=== PATIENT | female | born 1945 ===

== ENCOUNTER 2021-03-31 03:42 | Emergency (ER) | payer MEDICARE, MEDICAID, SELFPAY ==
[2021-03-31 03:51] VITALS: BP 176/96; PULSE 82
[2021-03-31 03:56] VITALS: BP 197/91; PULSE 66; RESP 16; TEMP 36.1; O2SAT 100; BMI 32.9
[2021-03-31 04:00] VITALS: BP 185/64; PULSE 68; RESP 16; TEMP 36.1; O2SAT 100
[2021-03-31 06:15] VITALS: BP 205/76; PULSE 72; TEMP 36.6; O2SAT 98
--- NOTE | 2021-03-31 06:55 | PC.NURSE ---
Patient is resting quietly in bed with eyes closed in no distress
--- NOTE | 2021-03-31 07:57 | PC.NURSE ---
Patient is ambulatory to the bathroom using her cane. No distress noted
--- NOTE | 2021-03-31 08:15 | PC.NURSE ---
Patient sitting up in bed eating breakfast
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
--- NOTE | 2021-03-31 09:10 | PC.NURSE ---
Dipper Machine Operator at bedside with doctor talking with patient. Pt expresses that she is afraid of being at home at night. The noises in her home scare here. 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 Pt was recently started on zoloft per daughter Maggie who called earlier.
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
--- NOTE | 2021-03-31 09:45 | PC.NURSE ---
Doctor is at bedside talking with daughter. Pt remains alert and oriented. NO distress
--- NOTE | 2021-03-31 10:01 | PC.NURSE ---
Discharge instructions given to daughter who verbalized understanding and denies any questions. Pt assisted into wheelchair and out to family vehicle
== END 2021-03-31 10:02 | disposition home or self-care (01) ==
PROVIDERS: Emergency Provider Emergency Medicine Emergency Medical Services; PCP Internal Medicine
DX: F41.9 Anxiety disorder, unspecified (principal); F22 Delusional disorders; E11.9 Type 2 diabetes mellitus without complications
CPT/HCPCS: 99282; 99284

== ENCOUNTER → 2021-09-17 10:46 | Outpatient (BNVA) | payer MEDICARE, MEDICAID, SELFPAY | PROVIDERS: PCP Internal Medicine; Visit Provider Internal Medicine | DX: J44.9 Chronic obstructive pulmonary disease, unspecified (principal); G47.33 Obstructive sleep apnea (adult) (pediatric); Z99.89 Dependence on other enabling machines and devices | CPT/HCPCS: 99212 ==

== ENCOUNTER 2021-11-26 01:58 | Inpatient (IN) | payer MEDICARE, MEDICAID, SELFPAY ==
[2021-11-26] VITALS (12 sets, daily range): BP systolic 115–154; BP diastolic 55–90; PULSE 80–138; RESP 14–25; TEMP 36.5–37.2; O2SAT 95–100; BMI 32.8
--- NOTE | ~2021-11-26 | XR_ITS ---
EXAMINATION: XR chest 1V CLINICAL INFORMATION: Reason for Exam fever COMPARISON: Chest radiograph 11/26/2021 TECHNIQUE: One view of the chest XR/XR chest 1V FINDINGS/IMPRESSION: Similar indistinctness of the central pulmonary vasculature with increased interstitial opacities which can be seen in the setting of pulmonary edema. No pneumothorax. No pleural effusion. Cardiac silhouette is mildly enlarged. Surgical clips in the right breast. Surgical anchors in the right humeral head.
--- NOTE | ~2021-11-26 | XR_ITS ---
EXAMINATION: XR CHEST CLINICAL INFORMATION: Dyspnea COMPARISON: 12/29/2017 TECHNIQUE: Frontal view of the chest was obtained. FINDINGS: Lung volumes are symmetric. There is prominence of the central vasculature and surrounding interstitium suggesting congestion. No evidence of pneumothorax or significant pleural effusion. Cardiac silhouette remains enlarged. Calcification is present at the aortic arch. Right humeral head surgical anchors again noted. Degenerative changes are noted in the spine. XR/XR chest 1V IMPRESSION: Prominent central vasculature suggesting congestion. Cardiac silhouette remains enlarged.
--- NOTE | ~2021-11-26 | CT_ITS ---
EXAMINATION: CT head/brain wo con CLINICAL INFORMATION: Reason for Exam acute encephalopathy vs delirium COMPARISON: None. TECHNIQUE: Contiguous axial imaging was performed from the skull base to vertex without intravenous contrast. Sagittal and coronal reformatted images were obtained. This CT examination was performed using dose optimization techniques as appropriate, variously including the following: * Automated exposure control * Adjustment of mA and/or kV according to patient size (this includes techniques or standardized protocols for targeted exams where dose is matched to indication/reason for exam; i.e. extremities or head) Use of iterative reconstruction technique DLP: 646 mGy-cm FINDINGS: No acute osseous or soft tissue abnormality. The mastoid air cells and visualized portions of the paranasal sinuses are well aerated. There is no evidence of acute intracranial hemorrhage or territorial infarction. No abnormal mass effect or midline shift is seen. [place] to white matter differentiation is well preserved. No extra-axial fluid collections are identified. No hydrocephalus. Patchy periventricular and deep white matter hypoattenuation most commonly reflective of mild small vessel ischemic changes. CT/CT head/brain wo con IMPRESSION: 1. No acute intracranial abnormality. 2. Patchy periventricular and deep white matter hypoattenuation most commonly reflective of mild small vessel ischemic changes.
--- NOTE | 2021-11-26 02:15 | ECG_ITS ---
Test Reason : SHORTNESS OF BREATH Blood Pressure : / mmHG Vent. Rate : 117 BPM Atrial Rate : 000 BPM P-R Int : 000 ms QRS Dur : 092 ms QT Int : 350 ms P-R-T Axes : 000 -04 053 degrees QTc Int : 488 ms Atrial fibrillation with rapid ventricular response Moderate voltage criteria for LVH, may be normal variant ( R in aVL , Tommy product ) Nonspecific ST and T wave abnormality Abnormal ECG When compared to the previous EKG of Atrial fibrillation with rapid ventricular response has replaced Normal sinus rhythm Referred By: Francie Moy Electronically Signed By:INOCENCIA SHULTZ MD
--- NOTE | 2021-11-26 02:20 | ED_ITS ---
HPI - SOB/Dyspnea General Chief Complaint: Dyspnea Stated Complaint: SOB Time Seen by Provider: 11/26/21 02:02 Source: patient and old records reviewed Mode of arrival: EMS Limitations: other (poor historian) History of Present Illness MD elicited complaint: shortness of breath and anxiety Pertinent past history: congestive heart failure and other (afib) Onset (ago): hour(s) (11pm ) Context: other (taken off sotalol recently?) Timing: constant Severity: moderate Exacerbating factors: exertion and movement Relieving factors: oxygen and rest Known history of: congestive heart failure Associated symptoms: palpitations and other (LE edema) Treatment prior to arrival: none Related Data Home Medications Medication Instructions Recorded Confirmed acetaminophen 325 mg tablet 650 mg PO Q6H PRN 09/17/21 betamethasone, augmented 0.05 % appl TOPICAL DAILY 09/17/21 topical cream docusate sodium 100 mg capsule 100 mg PO BID 09/17/21 fluticasone propionate 50 spray INTRANASAL 09/17/21 mcg/actuation nasal spray,suspension gabapentin 100 mg capsule 100 mg PO BEDTIME 09/17/21 ipratropium 20 mcg-albuterol 100 1 puff INHALATION QID PRN 09/17/21 mcg/actuation mist for inhalation (Combivent Respimat) latanoprost 0.005 % eye drops 1 drp OPHTHALMIC (EYE) BEDTIME 09/17/21 letrozole 2.5 mg tablet 2.5 mg PO DAILY 09/17/21 lisinopril 5 mg tablet 5 mg PO DAILY 09/17/21 rosuvastatin 40 mg tablet 40 mg PO DAILY 09/17/21 sertraline 25 mg tablet 25 mg PO DAILY 09/17/21 sotalol 80 mg tablet (Sotalol AF) 80 mg PO BID 09/17/21 warfarin 5 mg tablet (Jantoven) mg PO 09/17/21 Allergies Allergy/AdvReac Type Severity Reaction Status Date / Time No Known Allergies Allergy Mild N/A Unverified 09/17/21 11:16 Review of Systems Review of Systems: Constitutional : No Fever, No Chills ENT/Mouth : No sore throat, No Rhinorrhea, No Swallowing Difficulty Eyes: No Eye Pain, No Swelling, No Redness Cardiovascular : No Chest Pain, positive SOB, No Orthopnea, positive Edema Respiratory : No Cough, No Sputum, No Wheezing, positive dyspnea Gastrointestinal : No Nausea, No Vomiting, No Diarrhea, No abdominal Pain, No Hematochezia, No Melena Genitourinary : No Dysuria, No Urinary Frequency, No Hematuria Musculoskeletal : No joint pain, No Myalgias Skin : No Skin Lesions, No rash Neuro : No Weakness, No Numbness, No Dizziness, No Headache Psych : pos Anxiety/Panic, No Depression Heme/Lymph: No Bruising, No Lymphadenopathy Endocrine : No Polyuria, No Polydipsia All other systems reviewed and are negative [facility] Past Medical History Attestation statement: The following information was validated with the patient. Medical History Anxiety Atrial fibrillation COPD (chronic obstructive pulmonary disease) Depression LEYDA on CPAP Social History Social History Alcohol intake: never Patient Tobacco Use Status: Never used Tobacco Use of substances other than those prescribed or required for medical reasons: No Advance Directives: No Advance Directives Information Provided: No Physical Exam Vital Signs: Vital Signs: Last Vital Signs Temp 98.8 F 11/26/21 02:22 Pulse 100 11/26/21 04:04 Resp 18 11/26/21 04:04 BP 143/55 H 11/26/21 04:04 Pulse Ox 96 11/26/21 04:04 BMI result Body Mass Index 32.8 Appearance: Alert. Oriented X3. Mild acute distress. Anxious Eyes: Pupils equal, round and reactive to light. ENT: Pharynx normal. Neck: Normal inspection. Neck supple. CVS: irregular tachycardic heart rate and rhythm. Pulses decreased in bilateral LE Respiratory: No respiratory distress. Breath sounds decreased at bases - rales noted bilaterally Abdomen: Soft and nontender. Skin: Skin warm and dry. Normal skin color. Normal skin turgor. Extremities: 1 to 2+ pitting LE edema Neuro: Oriented X 3. No motor deficit. No sensory deficit. Course Course Course Narrative: HR down to 87 after IV dilt edema seen on CXR, BNP > 400 IV lasix ordered will start dilt gtt HR up and down to 130s, BP stable likely uncontrolled afib set off CHF - plan to admit after repeat trop repeat trop is flat MDM - SOB/Dyspnea MDM Narrative Medical decision making narrative: 76 yo female with hx of afib only on coumadin ( off of sotalol unsure why) COPD, HPL, HTN here with c/o feeling dyspneic while at rest since 11pm. She is in rapid afib. Daughter is here and confirms she is not on sotalol has not filled it since Jul and the patient is also here with her bag of meds which does not include sotalol. At this time likely rapid afib and component of anxiety causing her symptoms - will obtain labs, given IV dilt, CXR, PO xanax. Dispo per results and improvement. Lab Data Result diagrams: 11/26/21 03:07 11/26/21 03:07 Labs: Lab Results 11/26/21 11/26/21 11/26/21 Range/Units 03:07 03:07 03:07 WBC 5.8 (4.8-10.8) X10*3/uL RBC 4.48 (4.20-5.50) X10*6/uL Hgb 13.2 (12.0-16.0) g/dl Hct 44.0 (37.0-47.0) % MCV 98.2 H (80.0-98.0) fL MCH 29.5 (27.0-33.0) pg MCHC 30.0 L (31.0-35.0) g/dl RDW 13.9 (11.0-16.0) % Plt Count TNP MPV 11.4 (9.4-12.3) fL Immature Gran % (Auto) 0.2 (0.0-0.4) % Neut % (Auto) 53.4 (45-73) % Lymph % (Auto) 33.4 (20-40) % Villalba % (Auto) 9.2 (2-11) % Eos % (Auto) 3.3 (0-4) % Baso % (Auto) 0.5 (0-2) % Lymph # (Auto) 1.9 (1.2-4.9) X10*3/uL Villalba # (Auto) 0.5 (0.1-1.2) X10*3/uL Eos # (Auto) 0.2 (0.0-0.4) X10*3/uL Baso # (Auto) 0.0 (0.0-0.2) X10*3/uL Abs Immat Gran (auto) 0.01 (0.00-0.03) X10*3/uL Absolute Neuts (auto) 3.1 (2.0-8.3) x10*3/uL Absolute Nucleated RBC 0.000 (0.0-0.012) X10*3/uL Nucleated RBC % (auto) 0.0 (0.0-0.2) /100WBC PT (9.9-13.0) SEC INR (0.9-1.1) VBG pH (7.32-7.43) VBG pCO2 mmHg VBG pO2 mmHg VBG HCO3 (22-26) mmol/L VBG O2 Saturation % VBG Base Excess mmol/L Sodium 140 (135-145) mmol/L Potassium 3.8 (3.3-5.1) mmol/L Chloride 104 (96-108) mmol/L Carbon Dioxide 25 (22-29) mmol/L Anion Gap 15 (12-20) BUN 18 H (9-16) mg/dL Creatinine 0.76 (0.5-1.4) mg/dL Estim Creat Clear Calc 61.2 Estimated GFR > 60 Random Glucose 127 H (60-115) mg/dL Calcium 10.0 (8.4-10.2) mg/dL Magnesium 2.2 (1.6-2.6) mg/dL Total Bilirubin 0.6 (0.0-1.0) mg/dL Direct Bilirubin 0.3 (0.0-0.5) mg/dL AST 18 (5-31) U/L ALT 9 (0-31) U/L Alkaline Phosphatase 92 (39-117) U/L Troponin I High Sens (<3.5-17.0) ng/L B-Natriuretic Peptide 413 H (<100) pg/mL Total Protein 8.1 H (6.5-8.0) g/dL Albumin 4.1 (3.5-5.0) g/dL COVID-19 ([facility]) (Negative) COVID-19 Clin Com 11/26/21 11/26/21 11/26/21 Range/Units 03:07 03:07 03:07 WBC (4.8-10.8) X10*3/uL RBC (4.20-5.50) X10*6/uL Hgb (12.0-16.0) g/dl Hct (37.0-47.0) % MCV (80.0-98.0) fL MCH (27.0-33.0) pg MCHC (31.0-35.0) g/dl RDW (11.0-16.0) % Plt Count MPV (9.4-12.3) fL Immature Gran % (Auto) (0.0-0.4) % Neut % (Auto) (45-73) % Lymph % (Auto) (20-40) % Villalba % (Auto) (2-11) % Eos % (Auto) (0-4) % Baso % (Auto) (0-2) % Lymph # (Auto) (1.2-4.9) X10*3/uL Villalba # (Auto) (0.1-1.2) X10*3/uL Eos # (Auto) (0.0-0.4) X10*3/uL Baso # (Auto) (0.0-0.2) X10*3/uL Abs Immat Gran (auto) (0.00-0.03) X10*3/uL Absolute Neuts (auto) (2.0-8.3) x10*3/uL Absolute Nucleated RBC (0.0-0.012) X10*3/uL Nucleated RBC % (auto) (0.0-0.2) /100WBC PT 26.1 H (9.9-13.0) SEC INR 2.3 H (0.9-1.1) VBG pH (7.32-7.43) VBG pCO2 mmHg VBG pO2 mmHg VBG HCO3 (22-26) mmol/L VBG O2 Saturation % VBG Base Excess mmol/L Sodium (135-145) mmol/L Potassium (3.3-5.1) mmol/L Chloride (96-108) mmol/L Carbon Dioxide (22-29) mmol/L Anion Gap (12-20) BUN (9-16) mg/dL Creatinine (0.5-1.4) mg/dL Estim Creat Clear Calc Estimated GFR Random Glucose (60-115) mg/dL Calcium (8.4-10.2) mg/dL Magnesium (1.6-2.6) mg/dL Total Bilirubin (0.0-1.0) mg/dL Direct Bilirubin (0.0-0.5) mg/dL AST (5-31) U/L ALT (0-31) U/L Alkaline Phosphatase (39-117) U/L Troponin I High Sens 31.0 H (<3.5-17.0) ng/L B-Natriuretic Peptide (<100) pg/mL Total Protein (6.5-8.0) g/dL Albumin (3.5-5.0) g/dL COVID-19 ([facility]) Negative (Negative) COVID-19 Clin Com See Note 11/26/21 11/26/21 Range/Units 03:14 05:17 WBC (4.8-10.8) X10*3/uL RBC (4.20-5.50) X10*6/uL Hgb (12.0-16.0) g/dl Hct (37.0-47.0) % MCV (80.0-98.0) fL MCH (27.0-33.0) pg MCHC (31.0-35.0) g/dl RDW (11.0-16.0) % Plt Count MPV (9.4-12.3) fL Immature Gran % (Auto) (0.0-0.4) % Neut % (Auto) (45-73) % Lymph % (Auto) (20-40) % Villalba % (Auto) (2-11) % Eos % (Auto) (0-4) % Baso % (Auto) (0-2) % Lymph # (Auto) (1.2-4.9) X10*3/uL Villalba # (Auto) (0.1-1.2) X10*3/uL Eos # (Auto) (0.0-0.4) X10*3/uL Baso # (Auto) (0.0-0.2) X10*3/uL Abs Immat Gran (auto) (0.00-0.03) X10*3/uL Absolute Neuts (auto) (2.0-8.3) x10*3/uL Absolute Nucleated RBC (0.0-0.012) X10*3/uL Nucleated RBC % (auto) (0.0-0.2) /100WBC PT (9.9-13.0) SEC INR (0.9-1.1) VBG pH 7.36 (7.32-7.43) VBG pCO2 48 mmHg VBG pO2 56 mmHg VBG HCO3 27 H (22-26) mmol/L VBG O2 Saturation 83.0 % VBG Base Excess 1.5 mmol/L Sodium (135-145) mmol/L Potassium (3.3-5.1) mmol/L Chloride (96-108) mmol/L Carbon Dioxide (22-29) mmol/L Anion Gap (12-20) BUN (9-16) mg/dL Creatinine (0.5-1.4) mg/dL Estim Creat Clear Calc Estimated GFR Random Glucose (60-115) mg/dL Calcium (8.4-10.2) mg/dL Magnesium (1.6-2.6) mg/dL Total Bilirubin (0.0-1.0) mg/dL Direct Bilirubin (0.0-0.5) mg/dL AST (5-31) U/L ALT (0-31) U/L Alkaline Phosphatase (39-117) U/L Troponin I High Sens 32.4 H (<3.5-17.0) ng/L B-Natriuretic Peptide (<100) pg/mL Total Protein (6.5-8.0) g/dL Albumin (3.5-5.0) g/dL COVID-19 ([facility]) (Negative) COVID-19 Clin Com Critical Care Time Critical Care Time Critical Care Time: Yes Total Critical Care Time: 35 Attestation: IV dilt, IV dilt gtt, review of records I attest to this time spent taking care of the patient Discharge Plan Discharge Clinical Impression: Atrial fibrillation with rapid ventricular response, Acute dyspnea Congestive heart failure Qualifiers: Heart failure type: unspecified Heart failure chronicity: acute on chronic Qualified Code(s): I50.9 - Heart failure, unspecified Patient Disposition: Admitted As Inpatient
[2021-11-26] MEDS: dilTIAZem HCL 50 MG/10 ML VIAL 10 MG IVPUSH (03:16)
[2021-11-26] MEDS: ALPRAZolam 0.5 MG TABLET PO (03:17)
[2021-11-26 03:18] LABS: PLT CLUMP 1; Red Blood Count 4.48 X10*6/uL (4.20-5.50); Red Cell Distribution Width 13.9 % (11.0-16.0); SCAN SMEAR FLAG 1
[2021-11-26 03:20] LABS: Basophils Percent Auto 0.5 % (0-2); Eosinophils Absolute Auto 0.2 X10*3/uL (0.0-0.4); Eosinophils Percent Auto 3.3 % (0-4); Hemoglobin 13.2 g/dl (12.0-16.0); Imm Gran Abs Auto 0.01 X10*3/uL (0.00-0.03); Imm Gran Pct Auto 0.2 % (0.0-0.4); Lymphocytes Absolute Auto 1.9 X10*3/uL (1.2-4.9); Lymphocytes Percent Auto 33.4 % (20-40); Mean Corpuscular Hemoglobin 29.5 pg (27.0-33.0); Mean Corpuscular Volume 98.2 fL (80.0-98.0); Mean Platelet Volume 11.4 fL (9.4-12.3); Monocytes Absolute Auto 0.5 X10*3/uL (0.1-1.2); Monocytes Percent Auto 9.2 % (2-11); Neutrophils Absolute Auto 3.1 x10*3/uL (2.0-8.3); Neutrophils Percent Auto 53.4 % (45-73); White Blood Count 5.8 X10*3/uL (4.8-10.8)
[2021-11-26 03:21] LABS: MANUAL DIFF FLAG NO
[2021-11-26 03:24] LABS: INTERNATIONAL NORM RATIO 2.3 (0.9-1.1); Prothrombin Time 26.1 SEC (9.9-13.0)
[2021-11-26 03:24] LABS: Venous Blood Gas Refer to POC result
[2021-11-26 03:24] LABS: VBG Base Excess 1.5 mmol/L; VBG HCO3 27 mmol/L (22-26); VBG pCO2 48 mmHg; VBG pH 7.36 (7.32-7.43); VBG pO2 56 mmHg
[2021-11-26 03:34] LABS: Alanine Aminotransferase 9 U/L (0-31); Albumin Level 4.1 g/dL (3.5-5.0); Alkaline Phosphatase 92 U/L (39-117); Anion Gap 15 (12-20); Aspartate Amino Transferase 18 U/L (5-31); Bilirubin Direct 0.3 mg/dL (0.0-0.5); Bilirubin Total 0.6 mg/dL (0.0-1.0); Blood Urea Nitrogen 18 mg/dL (9-16); Carbon Dioxide 25 mmol/L (22-29); Chloride 104 mmol/L (96-108); Creatinine Clr Calc Pharmacy 61.2; Estimated Glomerular Filt Rate > 60; Glucose Random 127 mg/dL (60-115); Magnesium 2.2 mg/dL (1.6-2.6); Potassium 3.8 mmol/L (3.3-5.1); Sodium 140 mmol/L (135-145); Total Protein 8.1 g/dL (6.5-8.0)
[2021-11-26 03:39] LABS: B Type Natriuretic Peptide 413 pg/mL (<100)
[2021-11-26 03:47] LABS: COVID-19 Test Negative (Negative); IDNOW Serial# 55D5AD1C
[2021-11-26] MEDS: Furosemide 20 MG/2 ML VIAL IVPUSH ×2 (03:53→21:20)
[2021-11-26] MEDS: dilTIAZem HCL 125 MG in 0.9 % Sodium Chloride 100 ML 10 MG IVCONT (04:46)
--- NOTE | 2021-11-26 04:58 | PC.NURSE ---
Patient's heart rate increased into the 120's to 130's and MD aware. Patient was started on diltiazem drip initially at 10mg/hr per protocol but was decreased to 5 mg/hour because heart rate dropped to 100 within 11 minutes.
[2021-11-26 05:42] LABS: Troponin-I High Sensitivity 32.4 ng/L (<3.5-17.0)
--- NOTE | 2021-11-26 11:31 | PHA.MEDREC ---
Pharmacy Consult ? Medication Reconciliation Pharmacy has completed the medication reconciliation. Unable to reach patient's daughter to confirm medications and unable to wake pt, so contacted pt's primary care and they sent a list of medications that should be active. List did contain sotalol 80mg BID. Ruthie Cardoza, LuisD
--- NOTE | 2021-11-26 17:06 | PM.IMHP ---
History of Present Illness Date of Service: 11/26/21 Attending physician on admission: Mason Macario Chief Complaint: chf , afib with rvr called for admission this afternoon. 76 y/o F history of AFib , CHF ef is 20-30% ( echo in 2010), sleep apnea on CPAP, hypertension, asthma/COPD, venoustasis/pvd ?, hx of recent breast cancer right side-came to the hospital because of having progressive shortness of breath and palpitation also having anxiety symptoms living alone, she thought that somebody is in her apartment, according to patient and her son-patient has shortness of breath from couple of years and gets progressively worse from last few months as well as having palpitation unclear if anxiety is contributing because when she lives in her apartment alone she feel somebody in the in the apartment and feels generalized anxiety during that time, Her son kept her with him for 1 month and her symptoms were getting better but then she was moved moved back to live alone-started having palpitation, shortness of breath, also anxiety symptoms and was sent to the hospital further management. Patient complained of waking up with shortness of breath to 3 time in a month. Patient has sleep apnea noncompliant to CPAP. Seen by ED physician patient-admission is for CHF/AFib with RVR. As per the ED note patient was not taking sotalol son clear why. As per the daughter patient was taking sotalol? Patient was currently started on Cardizem drip as per ED physician. As per the daughter also she had recent breast cancer removal as per daughter it was stage I and she was placed on medication after that she does not know the name. Currently patient says her shortness of breath seems improving also feels less palpitations, heart rate is running in 120 range on the tele. Patient denies any nausea vomiting abdominal pain or fever chills or any urinary complaints or weakness or numbness or any chest pain Past surgical history as above. Social history: Lives alone, no smoking no EtOH or recreational drugs. Review of Systems Review of Systems: As above. [facility] Medical History Anxiety Atrial fibrillation COPD (chronic obstructive pulmonary disease) Depression LEYDA on CPAP Pertinent family history: Hypertension runs in the family. Social History Alcohol intake: never Patient Tobacco Use Status: Never used Tobacco Use of substances other than those prescribed or required for medical reasons: No Advance Directives: No Advance Directives Information Provided: No Meds Allergies Allergy/AdvReac Type Severity Reaction Status Date / Time No Known Allergies Allergy Mild N/A Unverified 09/17/21 11:16 Active Medications: Current Medications Aspirin (Aspirin Enteric Coated 81 Mg Tablet.Dr) 81 mg PO DAILY [facility] Betamethasone Dipropion Augmented (Betamethasone Dip Aug 0.05% Cr 15 Gm Tube) 1 appl TOPICAL DAILY [facility]; Protocol Fluticasone Propionate (Fluticasone Propionate Nasal 16 Gm [place]) 2 spray NOSTRIL-B DAILY [facility] Furosemide (Furosemide 20 Mg/2 Ml Vial) 20 mg IVPUSH BID [facility]; Protocol Gabapentin (Gabapentin 100 Mg Capsule) 100 mg PO BEDTIME [facility] Diltiazem HCl 125 mg/ Sodium (Chloride) 125 mls @ 0 mls/hr IVCONT .Q0M [facility]; Protocol Last Titration: 11/26/21 04:57 Dose: 5 mg/hr, 5 mls/hr Documented by: Lisinopril (Lisinopril 5 Mg Tablet) 5 mg PO BID [facility]; Protocol Non-Formulary Medication (Ipratropium-Albuterol [Combivent Respimat]) 1 puff INHALE QID PRN PRN Reason: Shortness Of Breath Non-Formulary Medication (Rosuvastatin) 40 mg PO DAILY [facility] Pharmacy Consult (Consult Rx Perform Med Rec) 1 each MISCELLANE ONCE PRN PRN Reason: Consult order Sertraline HCl (Sertraline Hcl 25 Mg Tablet) 25 mg PO DAILY [facility] Sodium Chloride (0.9 % Sodium Chloride Flush 3 Ml Syringe) 3 ml IVFLUSH QSHIFT [facility] Warfarin Sodium (Warfarin Sodium 5 Mg Tablet) 5 mg PO ONCE@1800 ONE Stop: 11/26/21 18:01 Home Medications Medication Instructions Recorded Confirmed Last Taken Type acetaminophen 325 mg tablet 650 mg PO Q6H PRN 09/17/21 11/26/21 Unknown History betamethasone, augmented 0.05 % 1 appl TOPICAL DAILY 09/17/21 11/26/21 Unknown History topical cream fluticasone propionate 50 2 spray INTRANASAL DAILY 09/17/21 11/26/21 Unknown History mcg/actuation nasal spray,suspension gabapentin 100 mg capsule 100 mg PO BEDTIME 09/17/21 11/26/21 Unknown History ipratropium 20 mcg-albuterol 100 1 puff INHALATION QID PRN 09/17/21 11/26/21 Unknown History mcg/actuation mist for inhalation (Combivent Respimat) lisinopril 5 mg tablet 5 mg PO BID 09/17/21 11/26/21 Unknown History rosuvastatin 40 mg tablet 40 mg PO DAILY 09/17/21 11/26/21 Unknown History sertraline 25 mg tablet 25 mg PO DAILY 09/17/21 11/26/21 Unknown History sotalol 80 mg tablet (Sotalol AF) 80 mg PO BID 09/17/21 11/26/21 Unknown History warfarin 5 mg tablet (Jantoven) 5 - 10 mg PO DAILY 09/17/21 11/26/21 Unknown History aspirin 81 mg tablet,delayed 81 mg PO DAILY 11/26/21 11/26/21 Unknown History release tramadol 50 mg tablet 1 tab PO Q12H PRN 11/26/21 11/26/21 Unknown History Physical Exam Vital Signs and Narrative: Vital Signs: Last Vital Signs Temp 97.7 F 11/26/21 15:03 Pulse 110 H 11/26/21 15:03 Resp 17 11/26/21 15:03 BP 144/56 H 11/26/21 15:03 Pulse Ox 99 11/26/21 15:03 BMI result Body Mass Index 32.8 physical exam: Appearance: Alert.? Oriented X3.? not in distress.? Eyes: Pupils equal, round and reactive to light.? Sclera nonicteric.? ENT: Pharynx normal.? Moist mucous membranes. cvs: rrr, [id number]. res: clear to auscultation ,no rhonchii or wheezing abd: no rebound or guarding ,nt, bs present. ext pulses present , no cyanosis,left leg wrapped with compression stocking , has ulcer as per patient and family. neuro: axo3 , nonfocal. Results Labs CBC and Chem 7: 11/26/21 03:07 11/26/21 03:07 Labs: Laboratory Results - last 24 hr 11/26/21 11/26/21 11/26/21 03:07 03:07 03:07 MCV 98.2 H MCH 29.5 MCHC 30.0 L RDW 13.9 Plt Count TNP MPV 11.4 Immature Gran % (Auto) 0.2 Neut % (Auto) 53.4 Lymph % (Auto) 33.4 [place] % (Auto) 9.2 Eos % (Auto) 3.3 Baso % (Auto) 0.5 Lymph # (Auto) 1.9 [place] # (Auto) 0.5 Eos # (Auto) 0.2 Baso # (Auto) 0.0 Abs Immat Gran (auto) 0.01 Absolute Neuts (auto) 3.1 Absolute Nucleated RBC 0.000 Nucleated RBC % (auto) 0.0 PT INR VBG pH VBG pCO2 VBG pO2 VBG HCO3 VBG O2 Saturation VBG Base Excess Anion Gap 15 Estim Creat Clear Calc 61.2 Estimated GFR > 60 Random Glucose 127 H Calcium 10.0 Magnesium 2.2 Total Bilirubin 0.6 Direct Bilirubin 0.3 AST 18 ALT 9 Alkaline Phosphatase 92 Troponin I High Sens B-Natriuretic Peptide 413 H Total Protein 8.1 H Albumin 4.1 COVID-19 (KATHY) COVID-ForeSee Com 11/26/21 11/26/21 11/26/21 03:07 03:07 03:07 MCV MCH MCHC RDW Plt Count MPV Immature Gran % (Auto) Neut % (Auto) Lymph % (Auto) [place] % (Auto) Eos % (Auto) Baso % (Auto) Lymph # (Auto) [place] # (Auto) Eos # (Auto) Baso # (Auto) Abs Immat Gran (auto) Absolute Neuts (auto) Absolute Nucleated RBC Nucleated RBC % (auto) PT 26.1 H INR 2.3 H VBG pH VBG pCO2 VBG pO2 VBG HCO3 VBG O2 Saturation VBG Base Excess Anion Gap Estim Creat Clear Calc Estimated GFR Random Glucose Calcium Magnesium Total Bilirubin Direct Bilirubin AST ALT Alkaline Phosphatase Troponin I High Sens 31.0 H B-Natriuretic Peptide Total Protein Albumin COVID-19 (KATHY) Negative COVID-Concard See Note 11/26/21 11/26/21 03:14 05:17 MCV MCH MCHC RDW Plt Count MPV Immature Gran % (Auto) Neut % (Auto) Lymph % (Auto) [place] % (Auto) Eos % (Auto) Baso % (Auto) Lymph # (Auto) [place] # (Auto) Eos # (Auto) Baso # (Auto) Abs Immat Gran (auto) Absolute Neuts (auto) Absolute Nucleated RBC Nucleated RBC % (auto) PT INR VBG pH 7.36 VBG pCO2 48 VBG pO2 56 VBG HCO3 27 H VBG O2 Saturation 83.0 VBG Base Excess 1.5 Anion Gap Estim Creat Clear Calc Estimated GFR Random Glucose Calcium Magnesium Total Bilirubin Direct Bilirubin AST ALT Alkaline Phosphatase Troponin I High Sens 32.4 H B-Natriuretic Peptide Total Protein Albumin COVID-19 (KATHY) COVID-19 Clin Com ECG Attestation: I personally reviewed and interpreted this ECG as follows: (afib with rvr , no st chnages ) Imaging Radiologist's Impressions: Impressions Chest X-Ray 11/26/21 03:34 IMPRESSION: Prominent central vasculature suggesting congestion. Cardiac silhouette remains enlarged. Assessment and Plan (1) Congestive heart failure: Qualifiers: Heart failure chronicity: acute on chronic Heart failure type: unspecified Qualified Code(s): I50.9 - Heart failure, unspecified Status: Acute (2) Acute dyspnea: Status: Acute (3) Atrial fibrillation with rapid ventricular response: Status: Acute (4) LEYDA on CPAP: Status: Acute Plan 76 y/o F history of AFib , CHF ef is 20-30% ( echo in 2009), sleep apnea on CPAP, hypertension, asthma/COPD, venoustasis/pvd ?, hx of recent breast cancer right side-came to the hospital because of having progressive shortness of breath and palpitation. 1. AFib with RVR- started on cardizem drip Once we speak with the daughter-as per patient daughter is taking sotalol, will check with Cardiology may need to start back. Continue Coumadin, INR is 2.3 2. CHF exacerbation possible systolic secondary to AFib with RVR Troponin flat patient denies any chest pain EKG does not show any ST changes except AFib with RVR Will start IV Lasix Monitor I&O Daily weight Cardiac diet Cardiology evaluation 3. History of anxiety/question panic: Continue home medications, will add Xanax p.r.n. for anxiety. Psych evaluation added. 4. COPD/sleep apnea Continue home medication, we will add CPAP. 5.htn: Blood pressure seems slightly elevated but acceptable Continue home medications 6. H LP: Continue statin. 7. DVT prophylaxis already on Coumadin. 8. History of breast cancer recent removal from the right breast, daughter will get back to us with the current medication she is taking afterwards. Above management discussed with patient in detail length as well as her daughter miss Lynch-they both understand and in agreement with the plan, time spent 70 minute patient full code, Considering systolic CHF exacerbation and AFib with RVR patient will anticipate 2 midnight stays. Quality Stroke Does the patient have a stroke diagnosis?: No VTE Prior VTE?: No VTE Risk Level:: Medical - moderate - high VTE Device Contraindication: N/A - Device Ordered VTE Drug Contraindication: N/A - Med Ordered
[2021-11-26 17:45] LABS: Estimated Average Glucose 126 mg/dL
[2021-11-26 18:07] LABS: Thyroid Stimulating Hormone 0.74 uIU/mL (0.32-4.0)
[2021-11-26] MEDS: Sertraline HCL 25 MG TABLET PO (19:51)
[2021-11-26] MEDS: Aspirin Enteric Coated 81 MG TABLET.DR PO (19:51)
[2021-11-26] MEDS: Warfarin Sodium 5 MG TABLET PO (20:14)
[2021-11-26] MEDS: Fluticasone Propionate Nasal 16 GM SPRAY 2 SPRAY NOSTRIL-B (20:15)
[2021-11-26] MEDS: Betamethasone Dip Aug 0.05% Cr 15 GM TUBE 1 APPL TOPICAL (20:15)
--- NOTE | 2021-11-26 20:21 | PM.PSYCN ---
History of Present Illness Date of Service: 11/26/21 Chief Complaint: CHF, Afib Reason for Consult: Medication Requesting physician: Mason Macario Discussed with referring provider: Yes Sources of Information: patient interviewed, chart reviewed and crisis/core team assessment reviewed HPI Narrative: Chayito is a 76 yo female who carries a dx of OLEG. She has a past medical hx of afib (on coumadin, non-adherent with sotalol, unsure why), sleep apnea, hx of breast carcinoma, PVD, COPD, HPL, and HTN. She presented to [facility] ED on 11/27 due to feeling dyspneic while at rest since 11pm. She was found to be in rapid afib. Daughter confirms pt is not on sotalol and has not filled it since 07/2022. Pt was started on xanax due to anxiety contributing to her symptoms. Pt was admitted to [facility] for further management. Administered Cardizem drip. Psych consult placed as pt is living alone and reported thinking that somebody is in her apartment. She has a lack of daytime structure. No hx of OP psych services, no hx of IPLOC, PHP, or CCS. Pt was started on sertraline 25 mg 03/2021 by PCP, however denies benefit. I evaluated the pt this evening and she reports she does not get much sleep. Feels nervous where she lives, ?shaky.? Says sx of anxiety are worse at night. Says she doesnt want to be in her house because she thinks another person is in the house, sees ?shadows passing by? x 2-3 weeks. Pt reports she has been praying, feels afraid, having crying episodes. Thinks it is a bad man from her past who has come back. I spoke with pt?s son, who confirms that pt reports seeing shadows in the night. Pt?s daughter primarily takes care of her and son helps, however pt lives alone in [address] housing. Per son, pt keeps saying she doesnt feel safe at the apartment and says somebody is doing witchcraft against her and that people are looking at her in her window. He denies that pt has a hx of hallucinations or psychosis. He denies sx of dementia, ?she knows what she?s talking about.? Precipitating factors include that one of pt?s daughters a couple months ago from complications of an infection. Son believes exacerbating factors for anxiety include that pt wants to move and she has a lack of daytime structure. Per son, p doesnt sleep well at night and sleeps in the day.? Medical Evaluation Reviewed: Yes [facility] Medical History Anxiety Atrial fibrillation COPD (chronic obstructive pulmonary disease) Depression LEYDA on CPAP Diagnostics Vital Signs (24Hr): Vital Signs - 24 hr 11/26/21 02:07 11/26/21 02:22 11/26/21 04:04 Temperature 99.0 F 98.8 F Pulse Rate 138 H 120 H 100 Respiratory Rate 22 H 17 18 Blood Pressure 119/88 115/61 143/55 H Pulse Oximetry 100 99 96 11/26/21 06:25 11/26/21 07:07 11/26/21 09:48 Temperature 98.1 F Pulse Rate 80 95 111 H Respiratory Rate 14 24 H Blood Pressure 133/56 L 132/63 154/79 H Pulse Oximetry 95 96 97 11/26/21 15:03 11/26/21 19:51 11/26/21 20:00 Temperature 97.7 F Pulse Rate 110 H 122 H 116 H Respiratory Rate 17 16 16 Blood Pressure 144/56 H 142/66 H 130/60 Pulse Oximetry 99 99 98 BMI result Body Mass Index 32.8 Labs Results: 11/26/21 03:07 11/28/21 06:31 Labs: Laboratory Results - last 48 hr 11/26/21 11/26/21 11/26/21 03:07 03:07 03:07 WBC 5.8 RBC 4.48 Hgb 13.2 Hct 44.0 MCV 98.2 H MCH 29.5 MCHC 30.0 L RDW 13.9 Plt Count TNP MPV 11.4 Immature Gran % (Auto) 0.2 Neut % (Auto) 53.4 Lymph % (Auto) 33.4 [place] % (Auto) 9.2 Eos % (Auto) 3.3 Baso % (Auto) 0.5 Lymph # (Auto) 1.9 [place] # (Auto) 0.5 Eos # (Auto) 0.2 Baso # (Auto) 0.0 Abs Immat Gran (auto) 0.01 Absolute Neuts (auto) 3.1 Absolute Nucleated RBC 0.000 Nucleated RBC % (auto) 0.0 PT INR VBG pH VBG pCO2 VBG pO2 VBG HCO3 VBG O2 Saturation VBG Base Excess Sodium 140 Potassium 3.8 Chloride 104 Carbon Dioxide 25 Anion Gap 15 BUN 18 H Creatinine 0.76 Estim Creat Clear Calc 61.2 Estimated GFR > 60 Random Glucose 127 H Estimat Average Glucose Hemoglobin A1c % Calcium 10.0 Magnesium 2.2 Total Bilirubin 0.6 Direct Bilirubin 0.3 AST 18 ALT 9 Alkaline Phosphatase 92 Troponin I High Sens B-Natriuretic Peptide 413 H Total Protein 8.1 H Albumin 4.1 TSH 0.74 COVID-19 (KATHY) COVID-19 Clin Com 11/26/21 11/26/21 11/26/21 03:07 03:07 03:07 WBC RBC Hgb Hct MCV MCH MCHC RDW Plt Count MPV Immature Gran % (Auto) Neut % (Auto) Lymph % (Auto) [place] % (Auto) Eos % (Auto) Baso % (Auto) Lymph # (Auto) [place] # (Auto) Eos # (Auto) Baso # (Auto) Abs Immat Gran (auto) Absolute Neuts (auto) Absolute Nucleated RBC Nucleated RBC % (auto) PT 26.1 H INR 2.3 H VBG pH VBG pCO2 VBG pO2 VBG HCO3 VBG O2 Saturation VBG Base Excess Sodium Potassium Chloride Carbon Dioxide Anion Gap BUN Creatinine Estim Creat Clear Calc Estimated GFR Random Glucose Estimat Average Glucose Hemoglobin A1c % Calcium Magnesium Total Bilirubin Direct Bilirubin AST ALT Alkaline Phosphatase Troponin I High Sens 31.0 H B-Natriuretic Peptide Total Protein Albumin TSH COVID-19 (KATHY) Negative COVID-19 Clin Com See Note 11/26/21 11/26/21 11/26/21 03:14 05:17 17:23 WBC RBC Hgb Hct MCV MCH MCHC RDW Plt Count MPV Immature Gran % (Auto) Neut % (Auto) Lymph % (Auto) [place] % (Auto) Eos % (Auto) Baso % (Auto) Lymph # (Auto) [place] # (Auto) Eos # (Auto) Baso # (Auto) Abs Immat Gran (auto) Absolute Neuts (auto) Absolute Nucleated RBC Nucleated RBC % (auto) PT INR VBG pH 7.36 VBG pCO2 48 VBG pO2 56 VBG HCO3 27 H VBG O2 Saturation 83.0 VBG Base Excess 1.5 Sodium Potassium Chloride Carbon Dioxide Anion Gap BUN Creatinine Estim Creat Clear Calc Estimated GFR Random Glucose Estimat Average Glucose 126 Hemoglobin A1c % 6.0 Calcium Magnesium Total Bilirubin Direct Bilirubin AST ALT Alkaline Phosphatase Troponin I High Sens 32.4 H B-Natriuretic Peptide Total Protein Albumin TSH COVID-19 (KATHY) COVID-19 Clin Com Imaging Radiology Impressions: ITS Impressions Chest X-Ray 11/26/21 03:34 IMPRESSION: Prominent central vasculature suggesting congestion. Cardiac silhouette remains enlarged. Mental Status Exam Mental Status Exam Narrative: A&O. In hospital attire, frail appearing older adult. Good eye contact, attentive. No Tics or Tremors. No abnormal involuntary movements. Tearful, somewhat activated, cooperative. Non-pressured speech, spontaneous with regular rate and rhythm, normal volume and prosody. No prolonged speech latency or dysarthria. Mood is ?nervous,? affect is anxious. Denies SI/SIB/HI upon inquiry. Denies A. Endorses VH and paranoid thought content. Thoughts are perseverative at times. No known cognitive or memory impairment. Insight/ Judgment fair and adequate. Medications Medications Current Medications Albuterol/Ipratropium (Albuterol/Iprat 2.5/0.5mg 3 Ml Ampul.Neb) 3 ml INHALE QID PRN PRN Reason: Shortness Of Breath Alprazolam (Alprazolam 0.5 Mg Tablet) 0.5 mg PO BEDTIME PRN PRN Reason: Anxiety Aspirin (Aspirin Enteric Coated 81 Mg Tablet.) 81 mg PO DAILY [facility] Last Admin: 11/26/21 19:51 Dose: 81 mg Documented by: Atorvastatin Calcium (Atorvastatin Calcium 80 Mg Tablet) 80 mg PO DAILY [facility] Betamethasone Dipropion Augmented (Betamethasone Dip Aug 0.05% Cr 15 Gm Tube) 1 appl TOPICAL DAILY [facility]; Protocol Last Admin: 11/26/21 20:15 Dose: 1 appl Documented by: Fluticasone Propionate (Fluticasone Propionate Nasal 16 Gm [place]) 2 spray NOSTRIL-B DAILY [facility] Last Admin: 11/26/21 20:15 Dose: 2 spray Documented by: Furosemide (Furosemide 20 Mg/2 Ml Vial) 20 mg IVPUSH BID [facility]; Protocol Gabapentin (Gabapentin 100 Mg Capsule) 100 mg PO BEDTIME [facility] Diltiazem HCl 125 mg/ Sodium (Chloride) 125 mls @ 0 mls/hr IVCONT .Q0M [facility]; Protocol Last Titration: 11/26/21 04:57 Dose: 5 mg/hr, 5 mls/hr Documented by: Lisinopril (Lisinopril 5 Mg Tablet) 5 mg PO BID [facility]; Protocol Olanzapine (Olanzapine 2.5 Mg Tablet) 2.5 mg PO BID [facility] Pharmacy Consult (Consult Rx Perform Med Rec) 1 each MISCELLANE ONCE PRN PRN Reason: Consult order Sertraline HCl (Sertraline Hcl 25 Mg Tablet) 25 mg PO DAILY [facility] Last Admin: 11/26/21 19:51 Dose: 25 mg Documented by: Sodium Chloride (0.9 % Sodium Chloride Flush 3 Ml Syringe) 3 ml IVFLUSH QSHIFT [facility] Allergies Allergies Allergy/AdvReac Type Severity Reaction Status Date / Time No Known Allergies Allergy Mild N/A Unverified 09/17/21 11:16 Assessment & Plan Assessment & Plan (1) OLEG (generalized anxiety disorder): Status: Acute Code(s): F41.1 - Generalized anxiety disorder Plan Chayito is a 76 yo female who carries a dx of OLEG. She has a past medical hx of afib (on coumadin, non-adherent with sotalol, unsure why), sleep apnea, hx of breast carcinoma, PVD, COPD, HPL, and HTN. Pt was admitted to [facility] for further management. Pt is reporting perseverative anxious thoughts that there is someone doing witchcraft against her, looking in her windows, has seen shadows and believes a man from her past is in her apartment. Plan: Start olanzapine 2.5 mg BID for sx of anxiety, perceptual disturbance. Discontinue sertraline 25 mg, as this may be activating. Will monitor for benefit. I have shared this with Dr. Macario and pt's son. Thank you for this consultation. If you have any questions or concerns, please do not hesitate to contact psychiatry service. I spent minutes with the patient and/or on the patient floor today, greater than?50% of which was spent counseling/coordinating care. Patient educated on: medication risk/benefits and therapeutic strategies
[2021-11-26] MEDS: lisinopriL 5 MG TABLET PO (21:20)
[2021-11-26] MEDS: OLANZapine 2.5 MG TABLET PO (21:20)
[2021-11-26] MEDS: Gabapentin 100 MG CAPSULE PO (21:20)
[2021-11-26] MEDS: dilTIAZem HCL 125 MG in 0.9 % Sodium Chloride 100 ML IVCONT (22:23)
[2021-11-26] MEDS: 0.9 % Sodium Chloride Flush 3 ML SYRINGE IVFLUSH (22:24)
--- NOTE | 2021-11-26 23:46 | PC.RT ---
Pt refusing NIV at this time; states she does not use her machine at home. Pt will call if needed
[2021-11-27 04:00] VITALS: BP 123/56; PULSE 64; RESP 20; TEMP 36.8; O2SAT 97
[2021-11-27 06:00] VITALS: BMI 30.7
[2021-11-27 07:16] VITALS: BP 102/63; PULSE 97; RESP 16; TEMP 36.4; O2SAT 100
--- NOTE | 2021-11-27 07:43 | P.PNIM_ITS ---
Subjective Subjective Date of Service: 11/27/21 Interval History: afib with rvr , chf Review of Systems still hr uncontrolled ,sob seems improving Denies any chest pain or abdominal pain or nausea vomiting Physical Exam Vital Signs: Vital Signs: Last Vital Signs Temp 97.5 F 11/27/21 07:16 Pulse 97 11/27/21 07:16 Resp 16 11/27/21 07:16 BP 102/63 11/27/21 07:16 Pulse Ox 100 11/27/21 07:16 BMI result Body Mass Index 30.7 physical exam: Appearance: Alert.? Oriented X3.? not in distress.? Eyes: Pupils equal, round and reactive to light.? Sclera nonicteric.? ENT: Pharynx normal.? Moist mucous membranes. cvs: rrr, [id number]. res: clear to auscultation ,no rhonchii or wheezing abd: no rebound or guarding ,nt, bs present. ext pulses present , no cyanosis,left leg wrapped with compression stocking , has foot ulcer aleft -seems dry ,no erythema or discharge. neuro: axo3 , nonfocal. Objective Data Active Medications Acetaminophen (Acetaminophen 325 Mg Tablet) 650 mg PO Q6H PRN PRN Reason: Pain, Mild (Pain Scale 1-3) Albuterol/Ipratropium (Albuterol/Iprat 2.5/0.5mg 3 Ml Ampul.Neb) 3 ml INHALE QID PRN PRN Reason: Shortness Of Breath Alprazolam (Alprazolam 0.5 Mg Tablet) 0.5 mg PO BEDTIME PRN PRN Reason: Anxiety Aspirin (Aspirin Enteric Coated 81 Mg Tablet.) 81 mg PO DAILY [facility] Last Admin: 11/26/21 19:51 Dose: 81 mg Documented by: MARIE Atorvastatin Calcium (Atorvastatin Calcium 80 Mg Tablet) 80 mg PO DAILY [facility] Betamethasone Dipropion Augmented (Betamethasone Dip Aug 0.05% Cr 15 Gm Tube) 1 appl TOPICAL DAILY [facility]; Protocol Last Admin: 11/26/21 20:15 Dose: 1 appl Documented by: MARIE Fluticasone Propionate (Fluticasone Propionate Nasal 16 Gm [place]) 2 spray NOSTRIL-B DAILY [facility] Last Admin: 11/26/21 20:15 Dose: 2 spray Documented by: HO.MCTA Furosemide (Furosemide 20 Mg/2 Ml Vial) 20 mg IVPUSH BID [facility]; Protocol Last Admin: 11/26/21 21:20 Dose: 20 mg Documented by: MARIE Gabapentin (Gabapentin 100 Mg Capsule) 100 mg PO BEDTIME [facility] Last Admin: 11/26/21 21:20 Dose: 100 mg Documented by: MARIE Diltiazem HCl 125 mg/ Sodium (Chloride) 125 mls @ 0 mls/hr IVCONT .Q0M [facility]; Protocol Last Admin: 11/26/21 22:23 Dose: 5 mg/hr, 5 mls/hr Documented by: DEAN Lisinopril (Lisinopril 5 Mg Tablet) 5 mg PO BID [facility]; Protocol Last Admin: 11/26/21 21:20 Dose: 5 mg Documented by: MARIE Olanzapine (Olanzapine 2.5 Mg Tablet) 2.5 mg PO BID [facility] Last Admin: 11/26/21 21:20 Dose: 2.5 mg Documented by: MARIE Pharmacy Consult (Consult Rx Perform Med Rec) 1 each MISCELLANE ONCE PRN PRN Reason: Consult order Sodium Chloride (0.9 % Sodium Chloride Flush 3 Ml Syringe) 3 ml IVFLUSH QSHIFT [facility] Last Admin: 11/26/21 22:24 Dose: 3 ml Documented by: DEAN Labs CBC & Chem 7: 11/26/21 03:07 11/27/21 08:22 Labs: Laboratory Results - last 24 hr 11/26/21 11/26/21 03:07 17:23 Estimat Average Glucose 126 Hemoglobin A1c % 6.0 TSH 0.74 Assessment and Plan (1) Atrial fibrillation with rapid ventricular response: Status: Acute (2) Congestive heart failure: Status: Acute Plan 76 y/o F history of AFib , CHF ef is 20-30% ( echo in 2009), sleep apnea on CPAP, hypertension, asthma/COPD, venoustasis/pvd ?, hx of recent breast cancer right side-came to the hospital because of having progressive shortness of breath and palpitation. 1. AFib with RVR- started on cardizem drip Once we speak with the daughter-as per patient daughter is taking sotalol, will check with Cardiology may need to start back. Continue Coumadin, INR is 2.3 2. CHF exacerbation possible systolic secondary to AFib with RVR sob slightly improvin Troponin flat patient denies any chest pain EKG does not show any ST changes except AFib with RVR continue IV Lasix Monitor I&O Daily weight Cardiac diet Cardiology evaluation 3. History of anxiety/question panic: Continue home medications, will add Xanax p.r.n. for anxiety.? Psych evaluation added. 4. COPD/sleep apnea Continue home medication, we will add CPAP. 5.htn:? Blood pressure seems slightly elevated but acceptable Continue home medications 6. H LP:? Continue statin. 7. DVT prophylaxis already on Coumadin. 8. History of breast cancer recent removal from the right breast, daughter will get back to us with the current medication she is taking afterwards. Inpatient stay: CHF, AFib with RVR Quality Stroke Does the patient have a stroke diagnosis?: No VTE Prior VTE?: No VTE Risk Level:: Medical - moderate - high VTE Device Contraindication: N/A - Device Ordered VTE Drug Contraindication: N/A - Med Ordered
[2021-11-27] MEDS: Acetaminophen 325 MG TABLET 650 MG PO ×2 (07:50→17:03)
[2021-11-27 08:45] LABS: INTERNATIONAL NORM RATIO 2.5 (0.9-1.1); Prothrombin Time 28.5 SEC (9.9-13.0)
--- NOTE | 2021-11-27 08:45 | MHC.CDI.CONC ---
CDI Concurrent Query Documentation Clarification: PHYSICIAN'S DOCUMENTATION REQUEST Date of Query: 11/27/21 0846 Patient Name: Chayito Klein Admit Date: 11/26/21 Dear Doctor, A review of the medical record indicates additional documentation may be needed. Please review below and update the documentation accordingly. Clinical Indicators: Risk Factors/Clinical Indicators/Treatments PN: 11/26 - Assessment/plan - History of Atrial fibrillation. On Coumadin. Started on Cardizem drip. If possible, please provide further specificity regarding atrial fibrillation, such as: Paroxysmal atrial fibrillation: terminates spontaneously or with intervention within 7 days of onset. Persistent atrial fibrillation: episodes of continuous AF that last more than 7 days and do not self-terminate. Long lasting persistent atrial fibrillation: episodes of continuous AF that last more than 12 months, Chronic or Permanent atrial fibrillation: when a decision has been made to accept the presence of AF and there is no further attempt to restore or maintain sinus rhythm. Other (please specify) Unable to determine Use of terms such as suspected, likely, concern for, or probable (associated with a specific diagnosis that is being evaluated, monitored, or treated as if it exists) are acceptable and can be coded in the inpatient setting, when documented at the time of discharge. Thank you, Linda Gold [facility], CDIS Extension: [phone] Please use your independent medical judgment in providing your response. THIS QUERY IS PART OF THE PERMANENT MEDICAL RECORD Provider Response: Other Other Diagnosis: Ch Art fib
[2021-11-27] MEDS: Atorvastatin Calcium 80 MG TABLET PO (08:51)
[2021-11-27] MEDS: Aspirin Enteric Coated 81 MG TABLET.DR PO (08:51)
[2021-11-27] MEDS: lisinopriL 5 MG TABLET PO ×2 (08:51→21:03)
[2021-11-27] MEDS: Furosemide 20 MG/2 ML VIAL IVPUSH (08:52)
[2021-11-27] MEDS: OLANZapine 2.5 MG TABLET PO ×2 (08:52→21:02)
[2021-11-27 08:56] LABS: Anion Gap 12 (12-20); Blood Urea Nitrogen 18 mg/dL (9-16); Calcium 10.1 mg/dL (8.4-10.2); Carbon Dioxide 32 mmol/L (22-29); Chloride 103 mmol/L (96-108); Creatinine Clr Calc Pharmacy 59.2; Estimated Glomerular Filt Rate > 60; Glucose Random 131 mg/dL (60-115); Potassium 4.1 mmol/L (3.3-5.1); Sodium 143 mmol/L (135-145)
--- NOTE | 2021-11-27 09:00 | CA_ITS ---
Transthoracic Echocardiogram Patient (Last, First, Middle): Chayito Galindo, Gender: Female Date of : 1945 Age: 76 Procedure Date: 11/27/2021 Procedure Type: Transthoracic Echocardiogram Location: [facility] Height: 157.48 cm Weight: 76.2 kg BSA: 1.77 m2 Heart Rate: bpm BP: 102 / 63 mmHg Site Project Manager: SELENE Knox MD: Mason Macario MD Cement Side Laster: Kapil France MD Symptoms: chf excerbation Study Quality: Fair ECG Rhythm: Atrial Fibrillation Conclusions: - 1. Low normal LV systolic function next 2. Moderate biatrial enlargement 3. Mitral calcification with normal cardiac valvular Doppler 4. Normal RV systolic pressure 5. No pericardial effusion Findings Left Ventricle Normal left ventricular cavity size. There is normal left ventricular wall thickness. The left ventricular systolic function is low normal. The visually estimated ejection fraction is between 50-55%. Diastolic function is indeterminate on the basis of available data. Right Ventricle Mildly increased right ventricular cavity size. There is normal right ventricular systolic function. Atria The left atrium is moderately dilated. There is no evidence of interatrial shunt. The right atrium is moderately dilated. Aortic Valve There is moderate calcification of the aortic valve. There is moderate thickening of the aortic valve. There is no aortic valve stenosis. There is no aortic valve regurgitation. Mitral Valve There is mild anterior and posterior mitral leaflet thickening. There is mild mitral annular calcification. There is trace mitral valve regurgitation. There is no mitral valve stenosis. Pulmonic Valve The pulmonic valve was not well visualized. Tricuspid Valve Likely normal tricuspid valve structure and function. There is mild tricuspid valve regurgitation. The right ventricular systolic pressure is normal. Normal right atrial pressure. There is no evidence of pulmonary hypertension. Great Vessels All visible segments of the aorta are normal in size. The pulmonary artery was not well visualized. Venous The inferior vena cava is normal in size and collapses greater than 50% with inspiration. Pericardium/Pleural There is no evidence of pericardial effusion. Prior Study Comparison No prior study available for comparison. Measurements 2D Linear Measurements IVSd: 1.10 0.6-0.9/0.6-1.0 cm LVIDd: 4.01 3.9-5.3/4.2-5.9 cm LVIDd Index: 2.27 2.4-3.2/2.2-3.1 cm/m2 LVIDs: 2.94 2.0-3.6 cm LVPWd: 1.10 0.7-1.1 cm LA Diam: 4.00 2.7-3.8/3.0-4.0 cm LAIDs Index: 2.26 1.5-2.3 cm/m2 LV Mass: 182.00 67-162/88-224 g LV Mass Index: 102.83 43-95/49-115 g/m2 LVOT Diam: 2.00 3.0+(-)1.3 cm Aortic Valve AoV Pk Miguel: 1.45 AoV Mn Miguel: 0.84 AoV VTI: 0.18 AoV Pk Grad: 8.00 Aov Mn Grad: 3.00 PAMELA Cont.VTI: 1.61 LVOT LVOT Pk Miguel: 0.62 LVOT Mn Miguel: 0.38 LVOT VTI: 0.09 LVOT Pk Grad: 2.00 LVOT Mn Grad: 1.00 LVOT Diam: 2.00 LVOT Area: 3.14 Right Ventricle TAPSE (mm): 17.30 Tricuspid Valve TR Pk Miguel: 2.09 TR Pk Grad: 17.00 RA Press: 3.00 RVSP: 20.00 Great Vessels Aorta Sinus of Valsalva: 3.23 2.0-3.[address] [place]: 2.49 1.7-3.4 cm Ao Asc: 2.80 2.1-3.4 cm Ao Arch: 2.80 Updated in Other Vendor System with Status of Final Kapil France MD electronically signed on 11/27/2021 3:22:19 PM with status of Final
[2021-11-27] MEDS: Fluticasone Propionate Nasal 16 GM SPRAY 2 SPRAY NOSTRIL-B (09:05)
[2021-11-27] MEDS: Betamethasone Dip Aug 0.05% Cr 15 GM TUBE 1 APPL TOPICAL (09:05)
--- NOTE | 2021-11-27 09:14 | MHC.CM.PN ---
CM met with Patient and her Son at bedside and addressed IMM with them, providing them with the original and placing a copy on the chart. Patient lives alone in an apartment but her Daughter/HCP/Maggie Lynch is her UTILITY MAINTENANCE WORKER and is with her daily. Patient appears to have s/s of Anxiety around living alone.Patient also has a Nurse who visits but only Maggie Lynch knows the name of the agencies and she is on vacation and did not answer her phone. Home/resume said services is the goal for now and CM has initiated and will follow for dc planning. PCP is Dr. Peyman Boss and Patient has received [employer] vax X3.
[2021-11-27 12:00] VITALS: BP 113/47; PULSE 99; RESP 16; TEMP 36.5; O2SAT 99
--- NOTE | 2021-11-27 12:45 | P.CDIC_ITS ---
CDI Concurrent Query Documentation Clarification: PHYSICIAN'S DOCUMENTATION REQUEST Date of Query: 11/27/21 1246 Patient Name: Chayito Klein Admit Date: 11/26/21 Dear Doctor, A review of the medical record indicates additional documentation may be needed. Please review below and update the documentation accordingly. Clinical Indicators: Risk Factors/Clinical Indicators/Treatments BMI 30.8 5' 2 in height Height weight eval noted patient to be Classified as Class I Obese. If possible, please provide an associated diagnosis related to the abnormal BMI, such as: For a BMI >= 30: * Overweight * Obesity * Due to excess calories * Drug induced * Due to other cause Or: * BMI is not significant * Other (please specify) * Unable to determine Use of terms such as suspected, likely, concern for, or probable (associated with a specific diagnosis that is being evaluated, monitored, or treated as if it exists) are acceptable and can be coded in the inpatient setting, when documented at the time of discharge. Thank you, Linda Gold [facility], CDIS Extension: [phone] Please use your independent medical judgment in providing your response. THIS QUERY IS PART OF THE PERMANENT MEDICAL RECORD Provider Response: Other Other Diagnosis: obesity
--- NOTE | 2021-11-27 13:09 | P.CONCA_ITS ---
History of Present Illness History of Present Illness Date of Service: 11/27/21 Requesting physician: Mason Macario Consult reason: atrial fibrillation and congestive heart failure Chief complaint: CHF, Afib Narrative: I was requested to see Chayito in cardiology consultation today for heart failure and atrial fibrillation. Patient with prior history of atrial fibrillation not sure if she is in persistent atrial fibrillation or paroxysmal atrial fibrillation on sotalol therapy as well as warfarin therapy, cardiomyopathy severely reduced LV systolic function. History was obtained with help of career coach and despite the career coach patient is a poor historian. Patient's son was present in the room as well but was not able to corroborate or give details of the history as his sister and patient's daughter is the HOME RESTORATION SERVICE CLEANER and healthcare proxy in provider and knows about her medical condition. As per the son she sees a primary care physician Peter and not sure if she is still seeing a vegetable ii farmworker. She has prior history of heart failure. Yesterday did assisted left and patient got scared being in the house alone and then came to the emergency because she was unable to breach short of breath. There is no clear of palpitations. She came in with mild congestive heart failure and atrial fibrillation rapid ventricular response. She was started on IV Cardizem drip and given IV Lasix. Today she appears lot more comfortable. She is very drowsy during the interview as she has she says she has not slept overnight and feels very sleepy. Denies palpitations, shortness of breath, orthopnea currently. Her admission BNP is in the 400 range Review of Systems Review of Systems: Yes Unobtainable due to mental status [facility] Past Medical History Medical History Anxiety Atrial fibrillation COPD (chronic obstructive pulmonary disease) Depression LEYDA on CPAP Social History Social History Household Members: None Housing: Apartment Do you presently have visiting nurse or other home services: No Alcohol intake: never Patient Tobacco Use Status: Never used Tobacco service: No Current occupational status: disabled Meds Allergies Allergy/AdvReac Type Severity Reaction Status Date / Time No Known Allergies Allergy Mild N/A Verified 11/27/21 02:07 Active Medications: Current Medications Acetaminophen (Acetaminophen 325 Mg Tablet) 650 mg PO Q6H PRN PRN Reason: Pain, Mild (Pain Scale 1-3) Last Admin: 11/27/21 07:50 Dose: 650 mg Documented by: Albuterol/Ipratropium (Albuterol/Iprat 2.5/0.5mg 3 Ml Ampul.Neb) 3 ml INHALE QID PRN PRN Reason: Shortness Of Breath Alprazolam (Alprazolam 0.5 Mg Tablet) 0.5 mg PO BEDTIME PRN PRN Reason: Anxiety Aspirin (Aspirin Enteric Coated 81 Mg Tablet.Dr) 81 mg PO DAILY [facility] Last Admin: 11/27/21 08:51 Dose: 81 mg Documented by: Atorvastatin Calcium (Atorvastatin Calcium 80 Mg Tablet) 80 mg PO DAILY [facility] Last Admin: 11/27/21 08:51 Dose: 80 mg Documented by: Betamethasone Dipropion Augmented (Betamethasone Dip Aug 0.05% Cr 15 Gm Tube) 1 appl TOPICAL DAILY [facility]; Protocol Last Admin: 11/27/21 09:05 Dose: 1 appl Documented by: Fluticasone Propionate (Fluticasone Propionate Nasal 16 Gm [place]) 2 spray NOSTRIL-B DAILY [facility] Last Admin: 11/27/21 09:05 Dose: 2 spray Documented by: Furosemide (Furosemide 20 Mg/2 Ml Vial) 20 mg IVPUSH DAILY [facility]; Protocol Gabapentin (Gabapentin 100 Mg Capsule) 100 mg PO BEDTIME [facility] Last Admin: 11/26/21 21:20 Dose: 100 mg Documented by: Diltiazem HCl 125 mg/ Sodium (Chloride) 125 mls @ 0 mls/hr IVCONT .Q0M [facility]; Protocol Last Admin: 11/26/21 22:23 Dose: 5 mg/hr, 5 mls/hr Documented by: Lisinopril (Lisinopril 5 Mg Tablet) 5 mg PO BID [facility]; Protocol Last Admin: 11/27/21 08:51 Dose: 5 mg Documented by: Olanzapine (Olanzapine 2.5 Mg Tablet) 2.5 mg PO BID [facility] Last Admin: 11/27/21 08:52 Dose: 2.5 mg Documented by: Pharmacy Consult (Consult Rx Perform Med Rec) 1 each MISCELLANE ONCE PRN PRN Reason: Consult order Sodium Chloride (0.9 % Sodium Chloride Flush 3 Ml Syringe) 3 ml IVFLUSH QSHIFT [facility] Last Admin: 11/27/21 08:51 Dose: Not Given Documented by: Home Medications Medication Instructions Recorded Confirmed Last Taken Type acetaminophen 325 mg tablet 650 mg PO Q6H PRN 09/17/21 11/26/21 Unknown History betamethasone, augmented 0.05 % 1 appl TOPICAL DAILY 09/17/21 11/26/21 Unknown History topical cream fluticasone propionate 50 2 spray INTRANASAL DAILY 09/17/21 11/26/21 Unknown History mcg/actuation nasal spray,suspension gabapentin 100 mg capsule 100 mg PO BEDTIME 09/17/21 11/26/21 Unknown History ipratropium 20 mcg-albuterol 100 1 puff INHALATION QID PRN 09/17/21 11/26/21 Unknown History mcg/actuation mist for inhalation (Combivent Respimat) lisinopril 5 mg tablet 5 mg PO BID 09/17/21 11/26/21 Unknown History rosuvastatin 40 mg tablet 40 mg PO DAILY 09/17/21 11/26/21 Unknown History sertraline 25 mg tablet 25 mg PO DAILY 09/17/21 11/26/21 Unknown History sotalol 80 mg tablet (Sotalol AF) 80 mg PO BID 09/17/21 11/26/21 Unknown History warfarin 5 mg tablet (Jantoven) 5 - 10 mg PO DAILY 09/17/21 11/26/21 Unknown History aspirin 81 mg tablet,delayed 81 mg PO DAILY 11/26/21 11/26/21 Unknown History release tramadol 50 mg tablet 1 tab PO Q12H PRN 11/26/21 11/26/21 Unknown History Physical Exam Vital Signs: Vital Signs: Last Vital Signs Temp 97.5 F 11/27/21 07:16 Pulse 97 11/27/21 07:16 Resp 16 11/27/21 07:16 BP 102/63 11/27/21 07:16 Pulse Ox 100 11/27/21 07:16 BMI result Body Mass Index 30.7 Const: General: cooperative, comfortable, no acute distress, alert, awake, tired appearing and other (Sleepy) Nutritional Appearance: overweight HEENT: Head: Yes normocephalic and Yes atraumatic Neck: Neck: Yes trachea midline, Yes supple and Yes no JVD Chest: Chest palpation & inspection: normal inspection of the chest Resp: Effort & Inspection: normal respiratory effort Auscultation: clear to auscultation bilaterally Cardio: Jugular venous distension: no JVD Rhythm: abnormal rhythm irregularly irregular Heart sounds: S1 normal heart sound present, S2 normal heart sound present, no click, no gallops, no murmurs and no rubs GI: Inspection: Yes obesity Auscultation: normal bowel sounds Skin: General skin exam: no rashes or lesions noted Neuro: General: no focal motor deficits Extrem: General: Yes no clubbing, cyanosis or edema Objective Labs and Meds Result diagrams: 11/26/21 03:07 11/27/21 08:22 Lab results: Laboratory Results - last 24 hr 11/26/21 11/26/21 11/27/21 03:07 17:23 08:22 PT 28.5 H INR 2.5 H Sodium Potassium Chloride Carbon Dioxide Anion Gap BUN Creatinine Estim Creat Clear Calc Estimated GFR Random Glucose Estimat Average Glucose 126 Hemoglobin A1c % 6.0 Calcium TSH 0.74 11/27/21 08:22 PT INR Sodium 143 Potassium 4.1 Chloride 103 Carbon Dioxide 32 H Anion Gap 12 BUN 18 H Creatinine 0.76 Estim Creat Clear Calc 59.2 Estimated GFR > 60 Random Glucose 131 H Estimat Average Glucose Hemoglobin A1c % Calcium 10.1 TSH Assessment and Plan (1) Congestive heart failure: Qualifiers: Heart failure chronicity: acute on chronic Heart failure type: unspecified Qualified Code(s): I50.9 - Heart failure, unspecified Status: Acute Congestive heart failure, most likely precipitated by acute anxiety and with rapid heart rate related to atrial fibrillation. Clinically today appears to be euvolemic and well compensated well diuresed. Switch to p.o. Lasix. Continue lisinopril therapy and as outpatient consider switching to Entresto therapy. Not sure as to patient's vegetable ii farmworker as outpatient. Discussed with the son and he says that he will discuss with his sister. Discontinue sotalol therapy, see below. Switch to metoprolol 25 mg q.6 hours for rate control as well as neurohormonal modulation. Also add digoxin 0.125 mg every day. Digoxin assay in 1 week. For heart failure she also should be on mineral corticoid inhibitor with Aldactone. Consider starting 12.5 mg daily. Once a rate is better control I think patient can be discharged home with outpatient follow-up. Consider intervention for psychosocial issues especially your anxiety issues. (2) Atrial fibrillation with rapid ventricular response: Status: Acute Atrial fibrillation with rapid ventricular response, most likely precipitated by acute anxiety. Not sure whether this is recurrent atrial fibrillation episode of she is in persistent atrial fibrillation. This history was not clear from patient and patient's son. At this point time given that she has a persistent atrial fibrillation without any overt symptoms, will pursue rate control. Discontinue sotalol therapy. Switch to metoprolol and digoxin therapy as above. If rate is adequately controlled by tomorrow can plan for discharge with outpatient follow with Holter monitor. If she develops significant heart failure symptoms related to persistent atrial fibrillation may consider switch of antiarrhythmic drug therapy and synchronized cardioversion. This needs to be followed by her vegetable ii farmworker. Continue full oral anticoagulation, currently on warfarin. INR is therapeutic. Goal INR between 2 and 3. Will sign of the case. Thank you for allowing us to partake in the care Procedures Date of Service Date of Service: 11/27/21
[2021-11-27 15:57] VITALS: BP 139/66; PULSE 58; RESP 19; TEMP 36.3; O2SAT 99
[2021-11-27] MEDS: 0.9 % Sodium Chloride Flush 3 ML SYRINGE IVFLUSH ×2 (17:04→21:03)
--- NOTE | 2021-11-27 19:28 | PC.NURSE ---
Minimal urine output, bladder scanner showed 530ml - per MD's order patient was straight cath - 900ml yellow urine drained, patient tolerated procedure well
[2021-11-27 19:45] VITALS: BP 120/69; PULSE 108; RESP 20; TEMP 36.4; O2SAT 100
[2021-11-27] MEDS: Gabapentin 100 MG CAPSULE PO (21:02)
[2021-11-27] MEDS: dilTIAZem HCL 125 MG in 0.9 % Sodium Chloride 100 ML IVCONT (22:07)
[2021-11-28] VITALS (10 sets, daily range): BP systolic 106–151; BP diastolic 63–90; PULSE 51–118; RESP 15–20; TEMP 35.9–38.6; O2SAT 94–99; BMI 30.4
--- NOTE | 2021-11-28 04:38 | PC.NURSE ---
Bladder scan done showing 903mL being retained. straight cath done and 900mL voided.
[2021-11-28 07:13] LABS: INTERNATIONAL NORM RATIO 2.2 (0.9-1.1); Prothrombin Time 25.5 SEC (9.9-13.0)
[2021-11-28 07:36] LABS: Anion Gap 13 (12-20); Blood Urea Nitrogen 20 mg/dL (9-16); Calcium 9.9 mg/dL (8.4-10.2); Carbon Dioxide 29 mmol/L (22-29); Chloride 106 mmol/L (96-108); Creatinine Clr Calc Pharmacy 61.3; Estimated Glomerular Filt Rate > 60; Glucose Random 148 mg/dL (60-115); Potassium 4.2 mmol/L (3.3-5.1); Sodium 144 mmol/L (135-145)
[2021-11-28] MEDS: 0.9 % Sodium Chloride Flush 3 ML SYRINGE IVFLUSH (08:00)
[2021-11-28] MEDS: Digoxin 0.125 MG TABLET PO ×2 (09:04→11:16)
[2021-11-28] MEDS: Metoprolol Tartrate 25 MG TABLET PO ×4 (09:04→21:38)
[2021-11-28] MEDS: lisinopriL 5 MG TABLET PO ×2 (09:04→21:39)
[2021-11-28] MEDS: Atorvastatin Calcium 80 MG TABLET PO (09:04)
[2021-11-28] MEDS: Aspirin Enteric Coated 81 MG TABLET.DR PO (09:04)
[2021-11-28] MEDS: OLANZapine 2.5 MG TABLET PO ×2 (09:04→21:39)
[2021-11-28] MEDS: Furosemide 40 MG TABLET PO (09:05)
[2021-11-28] MEDS: Spironolactone 25 MG TABLET 12.5 MG PO (09:05)
[2021-11-28] MEDS: Betamethasone Dip Aug 0.05% Cr 15 GM TUBE 1 APPL TOPICAL (09:07)
[2021-11-28] MEDS: Fluticasone Propionate Nasal 16 GM SPRAY 2 SPRAY NOSTRIL-B (09:07)
[2021-11-28] MEDS: ALPRAZolam 0.5 MG TABLET PO (11:16)
--- NOTE | 2021-11-28 11:40 | PC.NURSE ---
IV ACCESS LOST AT START OF SHIFT. MULTIPLE ATTEMPTS BY RNS AND SUPERVIOR. IV OBTAINED WITH ULTRASOUND BY ED RN.
--- NOTE | 2021-11-28 13:57 | PC.NURSE ---
Addendum entered by Veronica Sewell RN 11/28/21 17:36: BLADDER SCANNED PRIOR TO STRAIGHT CATH FOR URINE SAMPLE PER MD. BLADDER SCAN = 350 ML. STRAIGHT CATH = 400 ML. DELIVERED TO LAB BY THIS RN. WILL CONTINUE TO MONITOR. CT AND CXR OBTAINED. RESP PANEL COLLECTED AND SENT TO LAB. Addendum entered by Veronica Sewell RN 11/28/21 14:28: PATIENT HAS NOT VOIDED SINCE PRIOR SHIFT STRAIGHT CATH. BLADDER SCANNED FOR > 1000. STRAIGHT CATH FOR 1000 ML OF YELLOW URINE. EMPTIED PRIOR TO NEW LAB ORDERS. DURING STRAIGHT CATH PATIENT NOTED TO FEEL WARM. PATIENT REFUSED TO OPEN HER MOUTH. TEMP 101.5 AXILLARY. MD NOTIFIED. LABS ORDERED AND WAITING TO BE OBTAINED. PATIENT TOO CONFUSED AND COMBATIVE FOR CT AT THIS TIME. WILL CONTINUE TO MONITOR. Original Note: PATIENTS SON LET STAFF KNOW HIS MOTHER SEEMED OFF. RN BEDSIDE TO ASSESS. AFTER SCHOOL PROGRAM TEACHER CALLED. PATIENT THINKS SHE IS HOME, NEEDS TO GET THINGS DONE. THIS IS A CHANGE FROM PREVIOUS ASSESSMENT. MD CALLED BEDSIDE TO ASSESS. TELESITTER BEDSIDE FOR SAFETY. WILL CONTINUE TO MONITOR.
--- NOTE | 2021-11-28 14:35 | P.PNIM_ITS ---
Subjective Subjective Date of Service: 11/28/21 Interval History: Toxic metabolic encephalopathy, fever Review of Systems Patient was at baseline this morning but anxious and mildly agitation, ends afterward eafternoon started having some confusion, fever Denies any cough or phlegm on the pain Physical Exam Vital Signs: Vital Signs: Last Vital Signs Temp 101.5 F H 11/28/21 14:28 Pulse 118 H 11/28/21 12:00 Resp 20 11/28/21 12:00 BP 151/65 H 11/28/21 12:00 Pulse Ox 94 11/28/21 04:00 BMI result Body Mass Index 30.4 Appearance: Aox2 ,intermittent .? Eyes: Pupils equal, round and reactive to light.? Sclera nonicteric.? ENT: Pharynx normal.? Moist mucous membranes. cvs: rrr, [id number]. res: air enrty seems fair ,alightly abd: no rebound or guarding ,nt, bs present. ext pulses present , no cyanosis,left leg wrapped with compression stocking , has foot ulcer left -seems dry ,no erythema or discharge. neuro: axo3 , nonfocal. Objective Data Active Medications Acetaminophen (Acetaminophen 325 Mg Tablet) 650 mg PO Q6H PRN PRN Reason: Pain, Mild (Pain Scale 1-3) Last Admin: 11/27/21 17:03 Dose: 650 mg Documented by: TUAN Acetaminophen (Acetaminophen 325 Mg Tablet) 650 mg PO Q6H ONE Stop: 11/28/21 14:28 Albuterol/Ipratropium (Albuterol/Iprat 2.5/0.5mg 3 Ml Ampul.Neb) 3 ml INHALE QID PRN PRN Reason: Shortness Of Breath Alprazolam (Alprazolam 0.5 Mg Tablet) 0.5 mg PO BEDTIME PRN PRN Reason: Anxiety Aspirin (Aspirin Enteric Coated 81 Mg Tablet.) 81 mg PO DAILY [facility] Last Admin: 11/28/21 09:04 Dose: 81 mg Documented by: YULIA Atorvastatin Calcium (Atorvastatin Calcium 80 Mg Tablet) 80 mg PO DAILY [facility] Last Admin: 11/28/21 09:04 Dose: 80 mg Documented by: YULIA Betamethasone Dipropion Augmented (Betamethasone Dip Aug 0.05% Cr 15 Gm Tube) 1 appl TOPICAL DAILY [facility]; Protocol Last Admin: 11/28/21 09:07 Dose: 1 appl Documented by: YULIA Digoxin (Digoxin 0.125 Mg Tablet) 0.125 mg PO DAILY [facility] Last Admin: 11/28/21 09:04 Dose: 0.125 mg Documented by: YULIA Digoxin (Digoxin 0.25 Mg Tablet) 0.25 mg PO Q6H [facility] Stop: 11/28/21 23:01 Fluticasone Propionate (Fluticasone Propionate Nasal 16 Gm [place]) 2 spray NOSTRIL-B DAILY [facility] Last Admin: 11/28/21 09:07 Dose: 2 spray Documented by: YULIA Furosemide (Furosemide 40 Mg Tablet) 40 mg PO DAILY [facility]; Protocol Last Admin: 11/28/21 09:05 Dose: 40 mg Documented by: YULIA Gabapentin (Gabapentin 100 Mg Capsule) 100 mg PO BEDTIME [facility] Last Admin: 11/27/21 21:02 Dose: 100 mg Documented by: KRYSTLE Lisinopril (Lisinopril 5 Mg Tablet) 5 mg PO BID [facility]; Protocol Last Admin: 11/28/21 09:04 Dose: 5 mg Documented by: YULIA Metoprolol Tartrate (Metoprolol Tartrate 25 Mg Tablet) 25 mg PO QID [facility]; Protocol Last Admin: 11/28/21 13:32 Dose: 25 mg Documented by: YULIA Olanzapine (Olanzapine 2.5 Mg Tablet) 2.5 mg PO BID [facility] Last Admin: 11/28/21 09:04 Dose: 2.5 mg Documented by: YULIA Pharmacy Consult (Consult Rx Perform Med Rec) 1 each MISCELLANE ONCE PRN PRN Reason: Consult order Sodium Chloride (0.9 % Sodium Chloride Flush 3 Ml Syringe) 3 ml IVFLUSH QSHIFT [facility] Last Admin: 11/28/21 08:00 Dose: 3 ml Documented by: YULIA Spironolactone (Spironolactone 25 Mg Tablet) 12.5 mg PO DAILY [facility]; Protocol Last Admin: 11/28/21 09:05 Dose: 12.5 mg Documented by: YULIA Labs CBC & Chem 7: 11/26/21 03:07 11/28/21 06:31 Labs: Laboratory Results - last 24 hr 11/28/21 11/28/21 06:31 06:31 PT 25.5 H INR 2.2 H Anion Gap 13 Estim Creat Clear Calc 61.3 Estimated GFR > 60 Random Glucose 148 H Calcium 9.9 Assessment and Plan (1) Acute dyspnea: Status: Acute (2) Pneumonia: Status: Acute Plan 76 y/o F history of AFib , CHF ef is 20-30% ( echo in 2009), sleep apnea on CPAP, hypertension, asthma/COPD, venoustasis/pvd ?, hx of recent breast cancer r ight side-came to the hospital because of having progressive shortness of breath and palpitation. 1. AFib with RVR- Heart rate still 120-130, will stop Cardizem drip, started on p.o. metoprolol 25 mg q.6 and digoxin Once we speak with the daughter-as per patient daughter is taking sotalol, will check with Cardiology may need to start back. Continue Coumadin, INR is 2.5 2. CHF exacerbation possible systolic secondary to AFib with RVR sob slightly improvin Troponin flat patient denies any chest pain EKG does not show any ST changes except AFib with RVR Switched to p.o. lasix Monitor I&O Daily weight Cardiac diet Cardiology evaluation 3. Toxic metabolic encephalopathy : probable related to sundowning , xanax has fevers Will check UA, chest x-ray, lactic acid, res panel,blood culture, ct head Depending upon the workup may need antibiotics-chest x-ray shows possible pneumonia since CHF mckeon feel better and not hypoxia CT head pending-staff is aware to get UA and respiratory panel. Added procalcitonin level Mild elevated lactic acid due to nebs. Will start Zosyn No sepsis tachycardia related to AFib. 4. History of anxiety/question panic: Continue home medications, will add Xanax p.r.n. for anxiety.? Psych evaluation added. 5. COPD/sleep apnea Continue home medication, we will add CPAP. 6.htn:? Blood pressure seems slightly elevated but acceptable Continue home medications 7. H LP:? Continue statin. 8. DVT prophylaxis already on Coumadin. 9. History of breast cancer recent removal from the right breast, daughter will get back to us with the current medication she is taking afterwards. Inpatient stay:? CHF, AFib with RVR,pneumonia Quality Stroke Does the patient have a stroke diagnosis?: No VTE Prior VTE?: No VTE Risk Level:: Medical - moderate - high VTE Device Contraindication: N/A - Device Ordered VTE Drug Contraindication: N/A - Med Ordered
[2021-11-28] MEDS: Haloperidol Lactate 5 MG/ML VIAL 2 MG IM (14:37)
[2021-11-28] MEDS: Acetaminophen 325 MG TABLET 650 MG PO ×2 (14:37→21:38)
[2021-11-28 15:52] LABS: Lactic Acid 2.3 mmol/L (0.5-2.0)
[2021-11-28 17:10] LABS: Reflex Lactate? Lactic Acid Added
[2021-11-28] MEDS: Digoxin 0.25 MG TABLET PO ×2 (17:15→21:38)
[2021-11-28 17:50] LABS: Appearance Urine HAZY; Color Urine YELLOW; Glucose Urine UA NEG (NEG); Leukocyte Esterase Urine NEG (NEG); Nitrite Urine NEG (NEG); Urine Blood TRACE (NEG); Urine Ketones NEG (NEG); Urine Protein NEG (NEG-TRACE)
[2021-11-28 17:56] LABS: Bacteria Urine 3+ /LPF; Mucus Urine TRACE /LPF; RBC Urine 0-2 /HPF (0); Squamous Epithelial Cell Urine TRACE /LPF; WBC Urine 0-2 /HPF (0-4)
[2021-11-28 18:08] LABS: Alanine Aminotransferase 10 U/L (0-31); Albumin Level 3.9 g/dL (3.5-5.0); Alkaline Phosphatase 91 U/L (39-117); Aspartate Amino Transferase 26 U/L (5-31); Bilirubin Direct 0.3 mg/dL (0.0-0.5); Bilirubin Total 0.8 mg/dL (0.0-1.0); Total Protein 7.8 g/dL (6.5-8.0)
[2021-11-28] MEDS: Piperacillin Sodium/Tazobactam 3.375 GM in 0.9 % Sodium Chloride 50 ML IV (18:27)
[2021-11-28 18:30] LABS: Procalcitonin 0.02 ng/mL
[2021-11-28 18:37] LABS: B Type Natriuretic Peptide 401 pg/mL (<100)
[2021-11-28] MEDS: Gabapentin 100 MG CAPSULE PO (21:39)
[2021-11-28] MEDS: Furosemide 20 MG/2 ML VIAL IVPUSH (21:39)
[2021-11-29] VITALS (9 sets, daily range): BP systolic 95–128; BP diastolic 47–83; PULSE 65–107; RESP 15–20; TEMP 35.9–36.8; O2SAT 96–100; BMI 29.5
[2021-11-29] MEDS: Piperacillin Sodium/Tazobactam 3.375 GM in 0.9 % Sodium Chloride 50 ML IV ×4 (00:59→17:21)
[2021-11-29 06:01] LABS: Mean Corpuscular HGB Conc 30.2 g/dl (31.0-35.0); Mean Corpuscular Hemoglobin 29.3 pg (27.0-33.0); Mean Corpuscular Volume 96.8 fL (80.0-98.0); Mean Platelet Volume 10.7 fL (9.4-12.3); Platelet Count 230 X10*3/uL (160-400); Red Blood Count 4.44 X10*6/uL (4.20-5.50); Red Cell Distribution Width 14.3 % (11.0-16.0); White Blood Count 8.3 X10*3/uL (4.8-10.8)
[2021-11-29 06:16] LABS: Anion Gap 14 (12-20); Blood Urea Nitrogen 24 mg/dL (9-16); Calcium 9.8 mg/dL (8.4-10.2); Carbon Dioxide 27 mmol/L (22-29); Chloride 105 mmol/L (96-108); Creatinine Clr Calc Pharmacy 56.6; Estimated Glomerular Filt Rate > 60; Glucose Random 109 mg/dL (60-115); Potassium 4.1 mmol/L (3.3-5.1); Sodium 142 mmol/L (135-145)
[2021-11-29 08:37] LABS: Adenovirus PCR Not Detected (Not Detect.)
[2021-11-29 08:38] LABS: Bordetella parapertussis PCR Not Detected (Not Detect.); Bordetella pertussis PCR Not Detected (Not Detect.); Chlamydia pneumoniae PCR Not Detected (Not Detect.); Coronavirus 229E PCR Not Detected (Not Detect.); Coronavirus HKU1 PCR Not Detected (Not Detect.); Coronavirus NL63 PCR Not Detected (Not Detect.); Coronavirus OC43 PCR Not Detected (Not Detect.); Human metapneumovirus PCR Not Detected (Not Detect.); Influenza A PCR Not Detected (Not Detect.); Influenza B PCR Not Detected (Not Detect.); Mycoplasma pneumoniae PCR Not Detected (Not Detect.); Rhino/Enterovirus PCR Not Detected (Not Detect.); SARS-CoV-2 PCR Not Detected (Not Detect.)
[2021-11-29 08:39] LABS: Parainfluenza 1 PCR Not Detected (Not Detect.); Parainfluenza 2 PCR Not Detected (Not Detect.); Parainfluenza 3 PCR Not Detected (Not Detect.); Parainfluenza 4 PCR Not Detected (Not Detect.); RSV PCR Not Detected (Not Detect.)
[2021-11-29] MEDS: Spironolactone 25 MG TABLET 12.5 MG PO (08:55)
[2021-11-29] MEDS: Acetaminophen 325 MG TABLET 650 MG PO ×3 (08:55→20:39)
[2021-11-29] MEDS: Digoxin 0.125 MG TABLET PO (08:55)
[2021-11-29] MEDS: Atorvastatin Calcium 80 MG TABLET PO (08:55)
[2021-11-29] MEDS: Aspirin Enteric Coated 81 MG TABLET.DR PO (08:56)
[2021-11-29] MEDS: lisinopriL 5 MG TABLET PO ×2 (08:56→20:43)
[2021-11-29] MEDS: OLANZapine 2.5 MG TABLET PO (08:57)
[2021-11-29] MEDS: Metoprolol Tartrate 25 MG TABLET PO ×3 (08:57→20:43)
[2021-11-29] MEDS: Betamethasone Dip Aug 0.05% Cr 15 GM TUBE 1 APPL TOPICAL (08:57)
[2021-11-29] MEDS: Furosemide 40 MG TABLET PO (08:57)
[2021-11-29] MEDS: 0.9 % Sodium Chloride Flush 3 ML SYRINGE IVFLUSH ×3 (08:57→20:40)
[2021-11-29] MEDS: Fluticasone Propionate Nasal 16 GM SPRAY 2 SPRAY NOSTRIL-B (08:58)
--- NOTE | 2021-11-29 14:49 | HO.PM.IMPN ---
Subjective Subjective Date of Service: 11/29/21 Interval History: possible pneumonia , toxic metabolic encephalopathy, afib -vent rate runnin 130-140 range Review of Systems no fever overnight, mental status seems to be slowly improving. denies any chest pain or shortness of breath, has cough. Physical Exam Vital Signs: Vital Signs: Last Vital Signs Temp 97.2 F 11/29/21 11:17 Pulse 80 11/29/21 11:17 Resp 20 11/29/21 11:17 BP 116/63 11/29/21 11:17 Pulse Ox 99 11/29/21 11:17 BMI result Body Mass Index 29.5 Appearance: Alert.? Oriented X2, more awake.? Eyes: Pupils equal, round and reactive to light.? Sclera nonicteric.? ENT: Pharynx normal.? Moist mucous membranes. cvs: irregular rate , tachy, [id number]. res: clear to auscultation ,no rhonchii or wheezing abd: no rebound or guarding ,nt, bs present. ext pulses present , no cyanosis,left leg wrapped with compression stocking , has foot ulcer aleft -seems dry ,no erythema or discharge. neuro: axo2, mobes sarika xt. Objective Data Active Medications Acetaminophen (Acetaminophen 325 Mg Tablet) 650 mg PO Q6H [facility] Last Admin: 11/29/21 14:17 Dose: 650 mg Documented by: GEOFF Albuterol/Ipratropium (Albuterol/Iprat 2.5/0.5mg 3 Ml Ampul.Neb) 3 ml INHALE QID PRN PRN Reason: Shortness Of Breath Aspirin (Aspirin Enteric Coated 81 Mg Tablet.) 81 mg PO DAILY [facility] Last Admin: 11/29/21 08:56 Dose: 81 mg Documented by: GEOFF Atorvastatin Calcium (Atorvastatin Calcium 80 Mg Tablet) 80 mg PO DAILY [facility] Last Admin: 11/29/21 08:55 Dose: 80 mg Documented by: GEOFF Betamethasone Dipropion Augmented (Betamethasone Dip Aug 0.05% Cr 15 Gm Tube) 1 appl TOPICAL DAILY [facility]; Protocol Last Admin: 11/29/21 08:57 Dose: 1 appl Documented by: GEOFF Digoxin (Digoxin 0.125 Mg Tablet) 0.125 mg PO DAILY [facility] Last Admin: 11/29/21 08:55 Dose: 0.125 mg Documented by: GEOFF Diltiazem HCl (Diltiazem Hcl 30 Mg Tablet) 30 mg PO QID [facility]; Protocol Fluticasone Propionate (Fluticasone Propionate Nasal 16 Gm [place]) 2 spray NOSTRIL-B DAILY [facility] Last Admin: 11/29/21 08:58 Dose: 2 spray Documented by: GEOFF Furosemide (Furosemide 40 Mg Tablet) 40 mg PO DAILY [facility]; Protocol Last Admin: 11/29/21 08:57 Dose: 40 mg Documented by: GEOFF Gabapentin (Gabapentin 100 Mg Capsule) 100 mg PO BEDTIME [facility] Last Admin: 11/28/21 21:39 Dose: 100 mg Documented by: KHUSHI Piperacillin Sod/Tazobactam (Sod 3.375 gm/ Sodium Chloride) 50 mls @ 100 mls/hr IV Q6H [facility] Last Infusion: 11/29/21 13:15 Dose: 0 mls/hr Documented by: GEOFF Lisinopril (Lisinopril 5 Mg Tablet) 5 mg PO BID [facility]; Protocol Last Admin: 11/29/21 08:56 Dose: 5 mg Documented by: GEOFF Metoprolol Tartrate (Metoprolol Tartrate 25 Mg Tablet) 25 mg PO QID [facility]; Protocol Last Admin: 11/29/21 12:34 Dose: 25 mg Documented by: GEOFF Olanzapine (Olanzapine 2.5 Mg Tablet) 2.5 mg PO BID [facility] Last Admin: 11/29/21 08:57 Dose: 2.5 mg Documented by: GEOFF Pharmacy Consult (Consult Rx Perform Med Rec) 1 each MISCELLANE ONCE PRN PRN Reason: Consult order Sodium Chloride (0.9 % Sodium Chloride Flush 3 Ml Syringe) 3 ml IVFLUSH QSHIFT [facility] Last Admin: 11/29/21 08:57 Dose: 3 ml Documented by: GEOFF Spironolactone (Spironolactone 25 Mg Tablet) 12.5 mg PO DAILY [facility]; Protocol Last Admin: 11/29/21 08:55 Dose: 12.5 mg Documented by: GEOFF Labs CBC & Chem 7: 11/29/21 05:45 11/29/21 05:45 Labs: Laboratory Results - last 24 hr 04/09/22 04/09/22 04/09/22 06:31 06:31 15:07 MCV MCH MCHC RDW Plt Count MPV Absolute Nucleated RBC Nucleated RBC % (auto) Anion Gap Estim Creat Clear Calc Estimated GFR Random Glucose Lactic Acid 2.3 H* Lactic Acid F/U @ 2Hr Calcium Total Bilirubin 0.8 Direct Bilirubin 0.3 AST 26 D ALT 10 Alkaline Phosphatase 91 B-Natriuretic Peptide Total Protein 7.8 Albumin 3.9 Procalcitonin 0.02 Urine Color Urine Appearance Urine pH Ur Specific [place] Urine Protein Urine Glucose (UA) Urine Ketones Urine Blood Urine Nitrite Ur Leukocyte Esterase Urine RBC Urine WBC Ur Squamous Epith Cells Urine Bacteria Urine Mucus Respiratory Panel [place] Adenovirus (Rapid PCR) B.pert (TEM-PCR) B.parapertussis DNA PCR C. pneumoniae DNA (PCR) Coronavirus OC43 (PCR) Coronavirus HKU1 (PCR) Coronavirus 229E (PCR) Coronavirus NL63 (PCR) Human Metapneumovir PCR Influenza A (RT-PCR) Influenza B (RT-PCR) M. pneumoniae (PCR) Parainfluenza 1 (PCR) Parainfluenza 2 (PCR) Parainfluenza 3 (PCR) Parainfluenza 4 (PCR) RSV (PCR) Entero/Rhino (PCR) SARS-CoV-2 RNA (RT-PCR) 11/28/21 11/28/21 11/28/21 16:50 17:34 17:45 MCV MCH MCHC RDW Plt Count MPV Absolute Nucleated RBC Nucleated RBC % (auto) Anion Gap Estim Creat Clear Calc Estimated GFR Random Glucose Lactic Acid Lactic Acid F/U @ 2Hr 1.0 Calcium Total Bilirubin Direct Bilirubin AST ALT Alkaline Phosphatase B-Natriuretic Peptide Total Protein Albumin Procalcitonin Urine Color YELLOW Urine Appearance HAZY Urine pH 7.0 Ur Specific [place] 1.010 Urine Protein NEG Urine Glucose (UA) NEG Urine Ketones NEG Urine Blood TRACE Urine Nitrite NEG Ur Leukocyte Esterase NEG Urine RBC 0-2 Urine WBC 0-2 Ur Squamous Epith Cells TRACE Urine Bacteria 3+ Urine Mucus TRACE Respiratory Panel [place] See Note Adenovirus (Rapid PCR) Not Detected B.pert (TEM-PCR) Not Detected B.parapertussis DNA PCR Not Detected C. pneumoniae DNA (PCR) Not Detected Coronavirus OC43 (PCR) Not Detected Coronavirus HKU1 (PCR) Not Detected Coronavirus 229E (PCR) Not Detected Coronavirus NL63 (PCR) Not Detected Human Metapneumovir PCR Not Detected Influenza A (RT-PCR) Not Detected Influenza B (RT-PCR) Not Detected M. pneumoniae (PCR) Not Detected Parainfluenza 1 (PCR) Not Detected Parainfluenza 2 (PCR) Not Detected Parainfluenza 3 (PCR) Not Detected Parainfluenza 4 (PCR) Not Detected RSV (PCR) Not Detected Entero/Rhino (PCR) Not Detected SARS-CoV-2 RNA (RT-PCR) Not Detected 11/28/21 11/29/21 11/29/21 18:04 05:45 05:45 MCV 96.8 MCH 29.3 MCHC 30.2 L RDW 14.3 Plt Count 230 MPV 10.7 Absolute Nucleated RBC 0.000 Nucleated RBC % (auto) 0.0 Anion Gap 14 Estim Creat Clear Calc 56.6 Estimated GFR > 60 Random Glucose 109 Lactic Acid Lactic Acid F/U @ 2Hr Calcium 9.8 Total Bilirubin Direct Bilirubin AST ALT Alkaline Phosphatase B-Natriuretic Peptide 401 H Total Protein Albumin Procalcitonin Urine Color Urine Appearance Urine pH Ur Specific [place] Urine Protein Urine Glucose (UA) Urine Ketones Urine Blood Urine Nitrite Ur Leukocyte Esterase Urine RBC Urine WBC Ur Squamous Epith Cells Urine Bacteria Urine Mucus Respiratory Panel [place] Adenovirus (Rapid PCR) B.pert (TEM-PCR) B.parapertussis DNA PCR C. pneumoniae DNA (PCR) Coronavirus OC43 (PCR) Coronavirus HKU1 (PCR) Coronavirus 229E (PCR) Coronavirus NL63 (PCR) Human Metapneumovir PCR Influenza A (RT-PCR) Influenza B (RT-PCR) M. pneumoniae (PCR) Parainfluenza 1 (PCR) Parainfluenza 2 (PCR) Parainfluenza 3 (PCR) Parainfluenza 4 (PCR) RSV (PCR) Entero/Rhino (PCR) SARS-CoV-2 RNA (RT-PCR) Assessment and Plan (1) Pneumonia: Status: Acute (2) Atrial fibrillation with rapid ventricular response: Status: Acute (3) Toxic metabolic encephalopathy: Status: Acute Plan 76 y/o F history of AFib , CHF ef is 20-30% ( echo in 2009), sleep apnea on CPAP, hypertension, asthma/COPD, venoustasis/pvd ?, hx of recent breast cancer right side-came to the hospital because of having progressive shortness of breath and palpitation. 1. AFib with RVR, (has ch afib)- Heart rate still 130, off Cardizem drip, started on p.o. metoprolol 25 mg q.6 and digoxin given added cardizem. Once we speak with the daughter-as per patient daughter is taking sotalol, will check with Cardiology may need to start back. Continue Coumadin, INR is 2.5 2. CHF exacerbation possible systolic secondary to AFib with RVR sob slightly improvin Troponin flat patient denies any chest pain EKG does not show any ST changes except AFib with RVR Switched to p.o. lasix, aldactone Monitor I&O Daily weight Cardiac diet Cardiology evaluation 3. Toxic metabolic encephalopathy : probable related to sundowning , xanax no fevers , sats fine mental status improving yesterady UA, chest x-ray, lactic acid, res panel,blood culture, ct head noted bnp trending down Depending upon the workup may need antibiotics-chest x-ray shows possible pneumonia since CHF mcekon feel better and not hypoxia CT head pending-staff is aware to get UA and respiratory panel. Mild elevated lactic acidosis resolved on Zosyn day 2. 4. History of anxiety/question panic: Continue home medications, will add Xanax p.r.n. for anxiety.? Psych evaluation added. 5. COPD/sleep apnea Continue home medication, we will add CPAP. 6.htn:? Blood pressure seems slightly elevated but acceptable Continue home medications 7. H LP:? Continue statin. 8. DVT prophylaxis already on Coumadin.inr pendin 9. History of breast cancer recent removal from the right breast, daughter will get back to us with the current medication she is taking afterwards. Inpatient stay:? AFib with RVR,pneumonia, chf Quality Stroke Does the patient have a stroke diagnosis?: No VTE Prior VTE?: No VTE Risk Level:: Medical - moderate - high VTE Device Contraindication: N/A - Device Ordered VTE Drug Contraindication: N/A - Med Ordered
--- NOTE | 2021-11-29 15:35 | PC.NURSE ---
1130 vomitted x1. Denied nausea after 1230 vin 100% lunch HR elevated to 148. no s/s, eating at the time. Dr Macario notified.
[2021-11-29 15:37] LABS: INTERNATIONAL NORM RATIO 1.7 (0.9-1.1); Prothrombin Time 19.8 SEC (9.9-13.0)
--- NOTE | 2021-11-29 17:22 | PC.NURSE ---
pt noted to be sleepy and lethargic. Vitals taken MD made aware and next Zyprexa dose held, BP meds held due to Low manula reading. MD noted that pt arousability isn't new.
[2021-11-29] MEDS: Tamsulosin HCL 0.4 MG CAPSULE PO (20:40)
[2021-11-29] MEDS: Gabapentin 100 MG CAPSULE PO (20:40)
[2021-11-30] VITALS (9 sets, daily range): BP systolic 98–165; BP diastolic 45–76; PULSE 64–138; RESP 17–20; TEMP 36.3–36.8; O2SAT 94–100
[2021-11-30] MEDS: Piperacillin Sodium/Tazobactam 3.375 GM in 0.9 % Sodium Chloride 50 ML IV ×4 (00:11→18:13)
[2021-11-30 06:41] LABS: INTERNATIONAL NORM RATIO 1.4 (0.9-1.1); Prothrombin Time 15.9 SEC (9.9-13.0)
[2021-11-30 06:57] LABS: Anion Gap 13 (12-20); Blood Urea Nitrogen 42 mg/dL (9-16); Calcium 9.5 mg/dL (8.4-10.2); Carbon Dioxide 27 mmol/L (22-29); Chloride 104 mmol/L (96-108); Creatinine Clr Calc Pharmacy 51.8; Estimated Glomerular Filt Rate > 60; Glucose Random 145 mg/dL (60-115); Potassium 4.3 mmol/L (3.3-5.1); Sodium 140 mmol/L (135-145)
[2021-11-30] MEDS: Spironolactone 25 MG TABLET 12.5 MG PO (09:57)
[2021-11-30] MEDS: 0.9 % Sodium Chloride Flush 3 ML SYRINGE IVFLUSH ×3 (09:58→19:43)
[2021-11-30] MEDS: Metoprolol Tartrate 25 MG TABLET PO ×3 (09:58→19:52)
[2021-11-30] MEDS: Acetaminophen 325 MG TABLET 650 MG PO ×3 (09:58→19:41)
[2021-11-30] MEDS: Digoxin 0.125 MG TABLET PO (09:58)
[2021-11-30] MEDS: Aspirin Enteric Coated 81 MG TABLET.DR PO (09:58)
[2021-11-30] MEDS: Atorvastatin Calcium 80 MG TABLET PO (09:58)
[2021-11-30] MEDS: Betamethasone Dip Aug 0.05% Cr 15 GM TUBE 1 APPL TOPICAL (09:59)
[2021-11-30] MEDS: lisinopriL 5 MG TABLET PO (09:59)
[2021-11-30] MEDS: Fluticasone Propionate Nasal 16 GM SPRAY 2 SPRAY NOSTRIL-B (10:00)
--- NOTE | 2021-11-30 11:40 | P.PNIM_ITS ---
Subjective Subjective Date of Service: 11/30/21 Interval History: Pna,afib with rvr Review of Systems heart rate was fluctuating from 100-130 range denies any chest pain shortness of breath abdominal pain, mental status is seems to be improved to baseline. Physical Exam Vital Signs: Vital Signs: Last Vital Signs Temp 98.1 F 11/30/21 11:05 Pulse 95 11/30/21 11:05 Resp 18 11/30/21 11:05 BP 99/58 L 11/30/21 11:05 Pulse Ox 100 11/30/21 11:05 BMI result Body Mass Index 30.0 Appearance: Alert.? Oriented X3, more awake.? Eyes: Pupils equal, round and reactive to light.? Sclera nonicteric.? ENT: Pharynx normal.? Moist mucous membranes. cvs: irregular rate , tachy, [id number]. res: clear to auscultation ,no rhonchii or wheezing abd: no rebound or guarding ,nt, bs present. ext pulses present , no cyanosis,left leg wrapped with compression stocking , has foot ulcer aleft -seems dry ,no erythema or discharge. neuro: axo3, mobes sarika xt. Objective Data Active Medications Acetaminophen (Acetaminophen 325 Mg Tablet) 650 mg PO Q6H [facility] Last Admin: 11/30/21 09:58 Dose: 650 mg Documented by: KARINA Albuterol/Ipratropium (Albuterol/Iprat 2.5/0.5mg 3 Ml Ampul.Neb) 3 ml INHALE QID PRN PRN Reason: Shortness Of Breath Aspirin (Aspirin Enteric Coated 81 Mg Tablet.) 81 mg PO DAILY [facility] Last Admin: 11/30/21 09:58 Dose: 81 mg Documented by: KARINA Atorvastatin Calcium (Atorvastatin Calcium 80 Mg Tablet) 80 mg PO DAILY [facility] Last Admin: 11/30/21 09:58 Dose: 80 mg Documented by: KARINA Betamethasone Dipropion Augmented (Betamethasone Dip Aug 0.05% Cr 15 Gm Tube) 1 appl TOPICAL DAILY [facility]; Protocol Last Admin: 11/30/21 09:59 Dose: 1 appl Documented by: KARINA Digoxin (Digoxin 0.125 Mg Tablet) 0.125 mg PO DAILY [facility] Last Admin: 11/30/21 09:58 Dose: 0.125 mg Documented by: KARINA Diltiazem HCl (Diltiazem Hcl 30 Mg Tablet) 30 mg PO QID [facility]; Protocol Last Admin: 11/29/21 17:47 Dose: Not Given Documented by: LUCIO Non-Admin Reason: hold per md lethargic soft bp Fluticasone Propionate (Fluticasone Propionate Nasal 16 Gm [place]) 2 spray NOSTRIL-B DAILY [facility] Last Admin: 11/30/21 10:00 Dose: 2 spray Documented by: KARINA Furosemide (Furosemide 40 Mg Tablet) 40 mg PO DAILY [facility]; Protocol Last Admin: 11/29/21 08:57 Dose: 40 mg Documented by: GEOFF Gabapentin (Gabapentin 100 Mg Capsule) 100 mg PO BEDTIME [facility] Last Admin: 11/29/21 20:40 Dose: 100 mg Documented by: LAMAR Piperacillin Sod/Tazobactam (Sod 3.375 gm/ Sodium Chloride) 50 mls @ 100 mls/hr IV Q6H [facility] Last Infusion: 11/30/21 06:50 Dose: 0 mls/hr Documented by: VARSHA Lisinopril (Lisinopril 5 Mg Tablet) 5 mg PO BID [facility]; Protocol Last Admin: 11/30/21 09:59 Dose: 5 mg Documented by: KARINA Metoprolol Tartrate (Metoprolol Tartrate 25 Mg Tablet) 25 mg PO QID [facility]; Protocol Last Admin: 11/30/21 09:58 Dose: 25 mg Documented by: KARINA Olanzapine (Olanzapine 2.5 Mg Tablet) 2.5 mg PO BID [facility] Last Admin: 11/29/21 08:57 Dose: 2.5 mg Documented by: GEOFF Pharmacy Consult (Consult Rx Perform Med Rec) 1 each MISCELLANE ONCE PRN PRN Reason: Consult order Sodium Chloride (0.9 % Sodium Chloride Flush 3 Ml Syringe) 3 ml IVFLUSH [facility] Last Admin: 11/30/21 09:58 Dose: 3 ml Documented by: KARINA Spironolactone (Spironolactone 25 Mg Tablet) 12.5 mg PO DAILY [facility]; Protocol Last Admin: 11/30/21 09:57 Dose: 12.5 mg Documented by: KARINA Tamsulosin HCl (Tamsulosin Hcl 0.4 Mg Capsule) 0.4 mg PO BEDTIME [facility] Last Admin: 11/29/21 20:40 Dose: 0.4 mg Documented by: LAMAR Labs CBC & Chem 7: 11/29/21 05:45 11/30/21 06:15 Labs: Laboratory Results - last 24 hr 11/29/21 11/30/21 11/30/21 15:20 06:15 06:15 PT 19.8 H 15.9 H INR 1.7 H 1.4 H Anion Gap 13 Estim Creat Clear Calc 51.8 Estimated GFR > 60 Random Glucose 145 H Calcium 9.5 Microbiology Microbiology Results: Microbiology 11/28/21 17:45 Blood Culture - Preliminary Blood - Venous No growth after 24 hours. 11/28/21 15:07 Blood Culture - Preliminary Blood - Venous No growth after 24 hours. Assessment and Plan (1) Toxic metabolic encephalopathy: Status: Acute (2) Atrial fibrillation with rapid ventricular response: Status: Acute Plan 76 y/o F history of AFib , CHF ef is 20-30% ( echo in 2009), sleep apnea on CPAP, hypertension, asthma/COPD, venoustasis/pvd ?, hx of recent breast cancer right side-came to the hospital because of having progressive shortness of breath and palpitation. 1. AFib with RVR, (has ch afib)- Heart rate still 120-130, but imrpoving started on p.o. metoprolol 25 mg q.6 and digoxin , cardizem. moniter blood pressure flacututes closely inr subtherapeutic , adjusted warfrain to 7.5 mg today. 2. CHF exacerbation possible systolic secondary to AFib with RVR sob slightly improvin Troponin flat patient denies any chest pain EKG does not show any ST changes except AFib with RVR Switched to p.o. lasix, aldactone Monitor I&O Daily weight Cardiac diet Cardiology evaluation 3. Toxic metabolic encephalopathy : probable related to sundowning , xanax no fevers , sats fine mental status improving yesterady? UA, chest x-ray, lactic acid, res panel,blood culture, ct head noted bnp trending down Depending upon the workup may need antibiotics-chest x-ray shows possible pneumonia since CHF mckeon feel better and not hypoxia CT head pending-staff is aware to get UA and respiratory panel. Mild elevated lactic acidosis resolved on? Zosyn day 3. 4. History of anxiety/question panic: Continue home medications, will add Xanax p.r.n. for anxiety.? Psych evaluation added. 5. COPD/sleep apnea Continue home medication, we will add CPAP. 6.htn:? Blood pressure seems slightly elevated but acceptable Continue home medications 7. H LP:? Continue statin. 8. DVT prophylaxis: inr aubtherapeutic , added warfrain 7.5 mg 9. History of breast cancer recent removal from the right breast, daughter will get back to us with the current medication she is taking afterwards. Inpatient stay:?? AFib with RVR,pneumonia, chf Quality Stroke Does the patient have a stroke diagnosis?: No VTE Prior VTE?: No VTE Risk Level:: Medical - moderate - high VTE Device Contraindication: N/A - Device Ordered VTE Drug Contraindication: N/A - Med Ordered
--- NOTE | 2021-11-30 13:40 | MHC.CM.PN ---
per roundspt will be dc ready in 1 to days pts heart rate is high and is till inm afib with rvr
[2021-11-30] MEDS: dilTIAZem HCL 30 MG TABLET PO ×2 (17:07→19:51)
[2021-11-30] MEDS: Gabapentin 100 MG CAPSULE PO (19:40)
[2021-11-30] MEDS: Warfarin Sodium 7.5 MG TABLET PO (19:41)
[2021-11-30] MEDS: Tamsulosin HCL 0.4 MG CAPSULE PO (19:42)
[2021-12-01] VITALS (9 sets, daily range): BP systolic 94–157; BP diastolic 44–85; PULSE 76–102; RESP 17–20; TEMP 36–36.8; O2SAT 96–100; BMI 30.3
[2021-12-01] MEDS: Piperacillin Sodium/Tazobactam 3.375 GM in 0.9 % Sodium Chloride 50 ML IV ×4 (00:14→18:04)
[2021-12-01 06:53] LABS: INTERNATIONAL NORM RATIO 1.4 (0.9-1.1); Prothrombin Time 15.9 SEC (9.9-13.0)
[2021-12-01 07:02] LABS: Anion Gap 14 (12-20); Blood Urea Nitrogen 44 mg/dL (9-16); Calcium 9.4 mg/dL (8.4-10.2); Carbon Dioxide 26 mmol/L (22-29); Chloride 106 mmol/L (96-108); Creatinine Clr Calc Pharmacy 50.2; Estimated Glomerular Filt Rate > 60; Glucose Random 122 mg/dL (60-115); Potassium 4.5 mmol/L (3.3-5.1); Sodium 141 mmol/L (135-145)
--- NOTE | 2021-12-01 07:37 | P.PNIM_ITS ---
Subjective Subjective Date of Service: 12/01/21 Interval History: afib rvr Physical Exam Vital Signs: Vital Signs: Last Vital Signs Temp 98.2 F 12/01/21 04:00 Pulse 81 12/01/21 04:00 Resp 18 12/01/21 04:46 BP 103/45 L 12/01/21 04:00 Pulse Ox 99 12/01/21 04:00 BMI result Body Mass Index 30.3 Objective Data Active Medications Acetaminophen (Acetaminophen 325 Mg Tablet) 650 mg PO Q6H [facility] Last Admin: 12/01/21 03:26 Dose: Not Given Documented by: SEBASTIAN Non-Admin Reason: Patient Asleep Albuterol/Ipratropium (Albuterol/Iprat 2.5/0.5mg 3 Ml Ampul.Neb) 3 ml INHALE QID PRN PRN Reason: Shortness Of Breath Aspirin (Aspirin Enteric Coated 81 Mg Tablet.) 81 mg PO DAILY [facility] Last Admin: 11/30/21 09:58 Dose: 81 mg Documented by: KARINA Atorvastatin Calcium (Atorvastatin Calcium 80 Mg Tablet) 80 mg PO DAILY [facility] Last Admin: 11/30/21 09:58 Dose: 80 mg Documented by: KARINA Betamethasone Dipropion Augmented (Betamethasone Dip Aug 0.05% Cr 15 Gm Tube) 1 appl TOPICAL DAILY [facility]; Protocol Last Admin: 11/30/21 09:59 Dose: 1 appl Documented by: KARINA Digoxin (Digoxin 0.125 Mg Tablet) 0.125 mg PO DAILY [facility] Last Admin: 11/30/21 09:58 Dose: 0.125 mg Documented by: KARINA Diltiazem HCl (Diltiazem Hcl 30 Mg Tablet) 30 mg PO QID [facility]; Protocol Last Admin: 11/30/21 19:51 Dose: 30 mg Documented by: SEBASTIAN Fluticasone Propionate (Fluticasone Propionate Nasal 16 Gm [place]) 2 spray NOSTRIL-B DAILY [facility] Last Admin: 11/30/21 10:00 Dose: 2 spray Documented by: KARINA Furosemide (Furosemide 40 Mg Tablet) 40 mg PO DAILY [facility]; Protocol Last Admin: 11/29/21 08:57 Dose: 40 mg Documented by: GEOFF Gabapentin (Gabapentin 100 Mg Capsule) 100 mg PO BEDTIME [facility] Last Admin: 11/30/21 19:40 Dose: 100 mg Documented by: SEBASTIAN Piperacillin Sod/Tazobactam (Sod 3.375 gm/ Sodium Chloride) 50 mls @ 100 mls/hr IV Q6H [facility] Last Infusion: 12/01/21 06:11 Dose: 0 mls/hr Documented by: SEBASTIAN Lisinopril (Lisinopril 5 Mg Tablet) 5 mg PO BID [facility]; Protocol Last Admin: 11/30/21 19:51 Dose: Not Given Documented by: SEBASTIAN Non-Admin Reason: bp soft Metoprolol Tartrate (Metoprolol Tartrate 25 Mg Tablet) 25 mg PO QID [facility]; Protocol Last Admin: 11/30/21 19:52 Dose: 25 mg Documented by: SEBASTIAN Olanzapine (Olanzapine 2.5 Mg Tablet) 2.5 mg PO BID [facility] Last Admin: 11/29/21 08:57 Dose: 2.5 mg Documented by: GEOFF Pharmacy Consult (Consult Rx Perform Med Rec) 1 each MISCELLANE ONCE PRN PRN Reason: Consult order Sodium Chloride (0.9 % Sodium Chloride Flush 3 Ml Syringe) 3 ml IVFLUSH QSHIFT [facility] Last Admin: 11/30/21 19:43 Dose: 3 ml Documented by: SEBASTIAN Spironolactone (Spironolactone 25 Mg Tablet) 12.5 mg PO DAILY [facility]; Protocol Last Admin: 11/30/21 09:57 Dose: 12.5 mg Documented by: KARINA Tamsulosin HCl (Tamsulosin Hcl 0.4 Mg Capsule) 0.4 mg PO BEDTIME [facility] Last Admin: 11/30/21 19:42 Dose: 0.4 mg Documented by: SEBASTIAN Warfarin Sodium (Warfarin Sodium 7.5 Mg Tablet) 7.5 mg PO DAILY@1800 [facility] Labs CBC & Chem 7: 11/29/21 05:45 12/01/21 06:22 Labs: Laboratory Results - last 24 hr 12/01/21 12/01/21 06:22 06:22 PT 15.9 H INR 1.4 H Anion Gap 14 Estim Creat Clear Calc 50.2 Estimated GFR > 60 Random Glucose 122 H Calcium 9.4 Microbiology Microbiology Results: Microbiology 11/28/21 17:45 Blood Culture - Preliminary Blood - Venous No growth after 48 hours. 11/28/21 15:07 Blood Culture - Preliminary Blood - Venous No growth after 48 hours. Assessment and Plan (1) Toxic metabolic encephalopathy: Status: Acute (2) Atrial fibrillation with rapid ventricular response: Status: Acute Plan 76 y/o F history of AFib , CHF ef is 20-30% ( echo in 2009), sleep apnea on CPAP, hypertension, asthma/COPD, venoustasis/pvd ?, hx of recent breast cancer right side-came to the hospital because of having progressive shortness of breath and palpitation. 1. AFib with RVR, (has ch afib)- Heart rate still 120-130, but imrpoving? started on p.o. metoprolol 25 mg q.6 and digoxin , cardizem. moniter blood pressure flacututes closely inr subtherapeutic , adjusted warfrain to 7.5 mg today. 2. CHF exacerbation possible systolic secondary to AFib with RVR sob slightly improvin Troponin flat patient denies any chest pain EKG does not show any ST changes except AFib with RVR Switched to p.o. lasix, aldactone Monitor I&O Daily weight Cardiac diet Cardiology evaluation 3. Toxic metabolic encephalopathy : probable related to sundowning , xanax no fevers , sats fine mental status improving yesterady? UA, chest x-ray, lactic acid, res panel,blood culture, ct head noted bnp trending down Depending upon the workup may need antibiotics-chest x-ray shows possible pneumonia since CHF mckeon feel better and not hypoxia CT head pending-staff is aware to get UA and respiratory panel. Mild elevated lactic acidosis resolved on? Zosyn day 3. 4. History of anxiety/question panic: Continue home medications, will add Xanax p.r.n. for anxiety.? Psych evaluation added. 5. COPD/sleep apnea Continue home medication, we will add CPAP. 6.htn:? Blood pressure seems slightly elevated but acceptable Continue home medications 7. H LP:? Continue statin. 8. DVT prophylaxis: inr aubtherapeutic , added warfrain 7.5 mg 9. History of breast cancer recent removal from the right breast, daughter will get back to us with the current medication she is taking afterwards. Inpatient stay:?? AFib with RVR,pneumonia, chf Quality Stroke Does the patient have a stroke diagnosis?: No VTE Prior VTE?: No VTE Risk Level:: Medical - moderate - high VTE Device Contraindication: N/A - Device Ordered VTE Drug Contraindication: N/A - Med Ordered
[2021-12-01] MEDS: Spironolactone 25 MG TABLET 12.5 MG PO (09:05)
[2021-12-01] MEDS: Aspirin Enteric Coated 81 MG TABLET.DR PO (09:05)
[2021-12-01] MEDS: Atorvastatin Calcium 80 MG TABLET PO (09:05)
[2021-12-01] MEDS: Digoxin 0.125 MG TABLET PO (09:06)
[2021-12-01] MEDS: lisinopriL 5 MG TABLET PO ×2 (09:06→20:27)
[2021-12-01] MEDS: Acetaminophen 325 MG TABLET 650 MG PO ×3 (09:06→20:27)
[2021-12-01] MEDS: dilTIAZem HCL 30 MG TABLET PO ×2 (09:06→12:25)
[2021-12-01] MEDS: Metoprolol Tartrate 25 MG TABLET PO ×3 (09:07→18:04)
[2021-12-01] MEDS: 0.9 % Sodium Chloride Flush 3 ML SYRINGE IVFLUSH ×3 (09:07→20:28)
[2021-12-01] MEDS: Fluticasone Propionate Nasal 16 GM SPRAY 2 SPRAY NOSTRIL-B (09:08)
[2021-12-01] MEDS: Betamethasone Dip Aug 0.05% Cr 15 GM TUBE 1 APPL TOPICAL (09:08)
[2021-12-01] MEDS: dilTIAZem HCL 60 MG TABLET PO ×2 (18:03→20:26)
[2021-12-01] MEDS: Warfarin Sodium 7.5 MG TABLET PO (18:04)
[2021-12-01] MEDS: Gabapentin 100 MG CAPSULE PO (20:27)
[2021-12-01] MEDS: Tamsulosin HCL 0.4 MG CAPSULE PO (20:27)
[2021-12-02] VITALS (8 sets, daily range): BP systolic 90–122; BP diastolic 40–74; PULSE 54–98; RESP 17–22; TEMP 36.1–36.8; O2SAT 94–99; BMI 31.7
[2021-12-02] MEDS: Piperacillin Sodium/Tazobactam 3.375 GM in 0.9 % Sodium Chloride 50 ML IV ×2 (00:20→05:55)
[2021-12-02 06:34] LABS: Mean Corpuscular HGB Conc 29.7 g/dl (31.0-35.0); Mean Corpuscular Hemoglobin 28.7 pg (27.0-33.0); Mean Corpuscular Volume 96.6 fL (80.0-98.0); Mean Platelet Volume 10.9 fL (9.4-12.3); Platelet Count 233 X10*3/uL (160-400); Red Blood Count 3.83 X10*6/uL (4.20-5.50); Red Cell Distribution Width 13.8 % (11.0-16.0); White Blood Count 5.9 X10*3/uL (4.8-10.8)
[2021-12-02 06:46] LABS: Anion Gap 13 (12-20); Blood Urea Nitrogen 57 mg/dL (9-16); Calcium 9.7 mg/dL (8.4-10.2); Carbon Dioxide 23 mmol/L (22-29); Chloride 107 mmol/L (96-108); Creatinine Clr Calc Pharmacy 44.4; Estimated Glomerular Filt Rate 52; Glucose Random 136 mg/dL (60-115); Potassium 4.3 mmol/L (3.3-5.1); Sodium 139 mmol/L (135-145)
[2021-12-02 08:29] LABS: INTERNATIONAL NORM RATIO 1.8 (0.9-1.1); Prothrombin Time 20.6 SEC (9.9-13.0)
--- NOTE | 2021-12-02 09:06 | ECG_ITS ---
Test Reason : AFIB/RVR Blood Pressure : / mmHG Vent. Rate : 095 BPM Atrial Rate : 000 BPM P-R Int : 000 ms QRS Dur : 102 ms QT Int : 350 ms P-R-T Axes : 000 -07 133 degrees QTc Int : 439 ms Atrial fibrillation Moderate voltage criteria for LVH, may be normal variant ( R in aVL , Tommy product ) Nonspecific ST and T wave abnormality Abnormal ECG When compared with ECG of 26-NOV-2021 02:07, Atrial fibrillation has replaced Sinus rhythm ST no longer depressed in Inferior leads Referred By: Maximiliano Du Electronically Signed By:Fredrick Brunner
[2021-12-02] MEDS: Acetaminophen 325 MG TABLET 650 MG PO ×3 (09:16→21:32)
[2021-12-02] MEDS: 0.9 % Sodium Chloride Flush 3 ML SYRINGE IVFLUSH ×3 (09:16→21:35)
[2021-12-02] MEDS: Aspirin Enteric Coated 81 MG TABLET.DR PO (09:17)
[2021-12-02] MEDS: dilTIAZem HCL 60 MG TABLET PO ×3 (09:17→17:15)
[2021-12-02] MEDS: Atorvastatin Calcium 80 MG TABLET PO (09:18)
[2021-12-02] MEDS: Digoxin 0.125 MG TABLET PO (09:18)
[2021-12-02] MEDS: lisinopriL 5 MG TABLET PO ×2 (09:19→21:33)
[2021-12-02] MEDS: Metoprolol Tartrate 25 MG TABLET PO ×4 (09:19→21:33)
[2021-12-02] MEDS: Spironolactone 25 MG TABLET 12.5 MG PO (09:26)
[2021-12-02] MEDS: Betamethasone Dip Aug 0.05% Cr 15 GM TUBE 1 APPL TOPICAL (09:27)
[2021-12-02] MEDS: Fluticasone Propionate Nasal 16 GM SPRAY 2 SPRAY NOSTRIL-B (10:38)
--- NOTE | 2021-12-02 13:23 | MHC.CLN ---
F/U PT WITH INCREASED NUTRITION RISK R/T PRESSURE INJURY PRESURE INJURY CHANGED TO DIABETIC ULCER PO INTAKE 100%X5 MEALS DIET RX: CARDIAC-APPROPRIATE WILL D/C ENSURE BID R/T WOUND CHANGE CLASSIFICATION CONTINUE TO MONITOR PO INTAKE CLOSELY RD TO FOLLOW UP X 7 DAYS
--- NOTE | 2021-12-02 13:31 | P.PNIM_ITS ---
Subjective Subjective Date of Service: 12/02/21 Interval History: cc: sob interval history:some palpiations this morning Cardiovascular Cardiovascular: Reports no additional cardiovascular complaints Respiratory Respiratory: Reports no additional respiratory complaints Physical Exam Vital Signs: Vital Signs: Last Vital Signs Temp 97.8 F 12/02/21 11:14 Pulse 72 12/02/21 11:14 Resp 18 12/02/21 11:14 BP 95/74 12/02/21 11:14 Pulse Ox 97 12/02/21 11:14 BMI result Body Mass Index 31.7 General: AO X 3, no acute distress Resp: CTA bilateral, no accessory muscles used CVS: S1,S2,irregular GI: soft, non tender, non distended Neuro: motor grossly intact, alert Psych: appropriate affect, appropriate insight Objective Data Active Medications Acetaminophen (Acetaminophen 325 Mg Tablet) 650 mg PO Q6H [facility] Last Admin: 12/02/21 09:16 Dose: 650 mg Documented by: VAZQUEZ Albuterol/Ipratropium (Albuterol/Iprat 2.5/0.5mg 3 Ml Ampul.Neb) 3 ml INHALE QID PRN PRN Reason: Shortness Of Breath Aspirin (Aspirin Enteric Coated 81 Mg Tablet.) 81 mg PO DAILY [facility] Last Admin: 12/02/21 09:17 Dose: 81 mg Documented by: VAZQUEZ Atorvastatin Calcium (Atorvastatin Calcium 80 Mg Tablet) 80 mg PO DAILY [facility] Last Admin: 12/02/21 09:18 Dose: 80 mg Documented by: VAZQUEZ Betamethasone Dipropion Augmented (Betamethasone Dip Aug 0.05% Cr 15 Gm Tube) 1 appl TOPICAL DAILY [facility]; Protocol Last Admin: 12/02/21 09:27 Dose: 1 appl Documented by: VAZQUEZ Digoxin (Digoxin 0.125 Mg Tablet) 0.125 mg PO DAILY [facility] Last Admin: 12/02/21 09:18 Dose: 0.125 mg Documented by: VAZQUEZ Diltiazem HCl (Diltiazem Hcl 60 Mg Tablet) 60 mg PO QID [facility]; Protocol Last Admin: 12/02/21 12:59 Dose: 60 mg Documented by: VAZQUEZ Fluticasone Propionate (Fluticasone Propionate Nasal 16 Gm [place]) 2 spray NOSTRIL-B DAILY [facility] Last Admin: 12/02/21 10:38 Dose: 2 spray Documented by: VAZQUEZ Furosemide (Furosemide 40 Mg Tablet) 40 mg PO DAILY [facility]; Protocol Last Admin: 11/29/21 08:57 Dose: 40 mg Documented by: GEOFF Gabapentin (Gabapentin 100 Mg Capsule) 100 mg PO BEDTIME [facility] Last Admin: 12/01/21 20:27 Dose: 100 mg Documented by: KRYSTLE Lisinopril (Lisinopril 5 Mg Tablet) 5 mg PO BID [facility]; Protocol Last Admin: 12/02/21 09:19 Dose: 5 mg Documented by: VAZQUEZ Metoprolol Tartrate (Metoprolol Tartrate 25 Mg Tablet) 25 mg PO QID [facility]; Protocol Last Admin: 12/02/21 12:59 Dose: 25 mg Documented by: VAZQUEZ Olanzapine (Olanzapine 2.5 Mg Tablet) 2.5 mg PO BID [facility] Last Admin: 11/29/21 08:57 Dose: 2.5 mg Documented by: GEOFF Pharmacy Consult (Consult Rx Perform Med Rec) 1 each MISCELLANE ONCE PRN PRN Reason: Consult order Sodium Chloride (0.9 % Sodium Chloride Flush 3 Ml Syringe) [facility] Admin: 12/02/21 09:16 Dose: 3 ml Documented by: VAZQUEZ Spironolactone (Spironolactone 25 Mg Tablet) 12.5 mg PO DAILY [facility]; Protocol Last Admin: 12/02/21 09:26 Dose: 12.5 mg Documented by: VAZQUEZ Tamsulosin HCl (Tamsulosin Hcl 0.4 Mg Capsule) 0.4 mg PO BEDTIME [facility] Last Admin: 12/01/21 20:27 Dose: 0.4 mg Documented by: KRYSTLE Warfarin Sodium (Warfarin Sodium 7.5 Mg Tablet) 7.5 mg PO DAILY@1800 [facility] Last Admin: 12/01/21 18:04 Dose: 7.5 mg Documented by: KARINA Labs CBC & Chem 7: 12/02/21 06:11 12/02/21 06:11 Labs: Laboratory Results - last 24 hr 12/02/21 12/02/21 12/02/21 06:11 06:11 07:40 MCV 96.6 MCH 28.7 MCHC 29.7 L RDW 13.8 Plt Count 233 MPV 10.9 Absolute Nucleated RBC 0.000 Nucleated RBC % (auto) 0.0 PT 20.6 H INR 1.8 H Anion Gap 13 Estim Creat Clear Calc 44.4 Estimated GFR 52 Random Glucose 136 H Calcium 9.7 Assessment and Plan (1) Toxic metabolic encephalopathy: Status: Acute (2) Atrial fibrillation with rapid ventricular response: Status: Acute Plan 76 y/o F history of AFib , CHF ef is 20-30% ( echo in 2009), sleep apnea on CPAP, hypertension, asthma/COPD, venoustasis/pvd ?, hx of recent breast cancer right side-came to the hospital because of having progressive shortness of breath and palpitation. chronic AFib with RVR Heart rate mostly well controlled but was elevated at times to 150 off sotalol, started on p.o. metoprolol 25 mg q.6 and digoxin , cardizem. moniter blood pressure flacututes closely continue coumadin acute on chronic CHF exacerbation with recovered EF sob improving Troponin flat patient denies any chest pain EKG does not show any ST changes except AFib with RVR Switched to p.o. lasix, aldactone Monitor I&O Daily weight Cardiac diet Toxic metabolic encephalopathy : probable related to sundowning , xanax mental status improving UA, chest x-ray, lactic acid, res panel,blood culture, ct head noted bnp trending down fever isolated, resolved, no obvious infection, will dc nyla History of anxiety/question panic: Continue home medications, Xanax p.r.n. for anxiety.? Psych evaluation added. COPD/sleep apnea Continue home medication, CPAP. htn Continue bp meds HLP:? Continue statin. History of breast cancer recent removal from the right breast, daughter will get back to us with the current medication she is taking afterwards. Inpatient stay:?? heart rate still note ideally controlled, continue close montiring and adjusting medications. Quality Stroke Does the patient have a stroke diagnosis?: No VTE Prior VTE?: No VTE Risk Level:: Medical - moderate - high VTE Device Contraindication: N/A - Device Ordered VTE Drug Contraindication: N/A - Med Ordered
--- NOTE | 2021-12-02 13:31 | MHC.CM.PN ---
EMR REVIEWED, PER HOSPITALIST PT REMAINS IN AFIB W/RVR, PLAN FOR MED CHANGES TODAY AND POSSIBLE D/C HOME TOMORROW W/[facility] AND 24HR CARE BY FAMILY.
[2021-12-02] MEDS: Warfarin Sodium 7.5 MG TABLET PO (17:15)
[2021-12-02] MEDS: Tamsulosin HCL 0.4 MG CAPSULE PO (21:33)
[2021-12-02] MEDS: Gabapentin 100 MG CAPSULE PO (21:33)
--- NOTE | 2021-12-02 21:33 | PM.PNCARD ---
Subjective Subjective Date of Service: 12/02/21 Interval history: Afib better controlled. Complaining of pain all over the body Physical Exam Vital Signs: Last Vital Signs Temp 96.9 F 12/02/21 19:33 Pulse 54 12/02/21 19:33 Resp 17 12/02/21 19:33 BP 90/40 L 12/02/21 19:33 Pulse Ox 94 12/02/21 19:33 BMI result Body Mass Index 31.7 GENERAL APPEARANCE: in no acute distress, pleasant. NECK: no carotid bruit, no jugular venous distention. SKIN: no suspicious lesions, warm and dry. HEART: no murmurs, irregular rate and rhythm. LUNGS: clear to auscultation bilaterally. ABDOMEN: soft, nontender. EXTREMITIES: no edema. PERIPHERAL PULSES: equal. NEUROLOGIC: No gross deficits, AAO X 3 Objective Labs and Meds Result diagrams: 12/02/21 06:11 12/02/21 06:11 Lab results: Laboratory Results - last 24 hr 12/02/21 12/02/21 12/02/21 06:11 06:11 07:40 WBC 5.9 RBC 3.83 L Hgb 11.0 L Hct 37.0 MCV 96.6 MCH 28.7 MCHC 29.7 L RDW 13.8 Plt Count 233 MPV 10.9 Absolute Nucleated RBC 0.000 Nucleated RBC % (auto) 0.0 PT 20.6 H INR 1.8 H Sodium 139 Potassium 4.3 Chloride 107 Carbon Dioxide 23 Anion Gap 13 BUN 57 H Creatinine 1.03 Estim Creat Clear Calc 44.4 Estimated GFR 52 Random Glucose 136 H Calcium 9.7 Progress Note: A&P Assessment and plan (1) Atrial fibrillation with rapid ventricular response: Status: Acute Plan 76 year old with Afib with RVR On dig, cardizem and bb. given advanced age I would favor not mixing 3 rate controlling meds. I think DC the Dig and change cardizem to long acting formulation 240 mg daily. c/w BB. If BP stable then change to toprol XL 50 mg daily. Fall Risk Details Current Medications: Current Medications Acetaminophen (Acetaminophen 325 Mg Tablet) 650 mg PO Q6H [facility] Last Admin: 12/02/21 15:19 Dose: 650 mg Documented by: Albuterol/Ipratropium (Albuterol/Iprat 2.5/0.5mg 3 Ml Ampul.Neb) 3 ml INHALE QID PRN PRN Reason: Shortness Of Breath Aspirin (Aspirin Enteric Coated 81 Mg Tablet.) 81 mg PO DAILY [facility] Last Admin: 12/02/21 09:17 Dose: 81 mg Documented by: Atorvastatin Calcium (Atorvastatin Calcium 80 Mg Tablet) 80 mg PO DAILY [facility] Last Admin: 12/02/21 09:18 Dose: 80 mg Documented by: Betamethasone Dipropion Augmented (Betamethasone Dip Aug 0.05% Cr 15 Gm Tube) 1 appl TOPICAL DAILY [facility]; Protocol Last Admin: 12/02/21 09:27 Dose: 1 appl Documented by: Digoxin (Digoxin 0.125 Mg Tablet) 0.125 mg PO DAILY [facility] Last Admin: 12/02/21 09:18 Dose: 0.125 mg Documented by: Diltiazem HCl (Diltiazem Hcl 60 Mg Tablet) 60 mg PO QID [facility]; Protocol Last Admin: 12/02/21 17:15 Dose: 60 mg Documented by: Fluticasone Propionate (Fluticasone Propionate Nasal 16 Gm [place]) 2 spray NOSTRIL-B DAILY [facility] Last Admin: 12/02/21 10:38 Dose: 2 spray Documented by: Furosemide (Furosemide 40 Mg Tablet) 40 mg PO DAILY [facility]; Protocol Last Admin: 11/29/21 08:57 Dose: 40 mg Documented by: Gabapentin (Gabapentin 100 Mg Capsule) 100 mg PO BEDTIME [facility] Last Admin: 12/01/21 20:27 Dose: 100 mg Documented by: Lisinopril (Lisinopril 5 Mg Tablet) 5 mg PO BID [facility]; Protocol Last Admin: 12/02/21 09:19 Dose: 5 mg Documented by: Metoprolol Tartrate (Metoprolol Tartrate 25 Mg Tablet) 25 mg PO QID [facility]; Protocol Last Admin: 12/02/21 17:15 Dose: 25 mg Documented by: Olanzapine (Olanzapine 2.5 Mg Tablet) 2.5 mg PO BID [facility] Last Admin: 11/29/21 08:57 Dose: 2.5 mg Documented by: Pharmacy Consult (Consult Rx Perform Med Rec) 1 each MISCELLANE ONCE PRN PRN Reason: Consult order Sodium Chloride (0.9 % Sodium Chloride Flush 3 Ml Syringe) 3 ml IVFLUSH QSHIFT [facility] Last Admin: 12/02/21 15:20 Dose: 3 ml Documented by: Spironolactone (Spironolactone 25 Mg Tablet) 12.5 mg PO DAILY [facility]; Protocol Last Admin: 12/02/21 09:26 Dose: 12.5 mg Documented by: Tamsulosin HCl (Tamsulosin Hcl 0.4 Mg Capsule) 0.4 mg PO BEDTIME [facility] Last Admin: 12/01/21 20:27 Dose: 0.4 mg Documented by: Warfarin Sodium (Warfarin Sodium 7.5 Mg Tablet) 7.5 mg PO DAILY@1800 [facility] Last Admin: 12/02/21 17:15 Dose: 7.5 mg Documented by: Time Spent With Patient Time: Total time spent is greater than 50% in coordination of care (as documented) at patient's floor/unit and/or counseling patient: Progress Note: Quality Stroke Does the patient have a stroke diagnosis?: No Procedures Date of Service Date of Service: 12/02/21
[2021-12-03] VITALS (7 sets, daily range): BP systolic 93–133; BP diastolic 40–78; PULSE 66–90; RESP 16–20; TEMP 36.1–37.1; O2SAT 92–100; BMI 31.6
[2021-12-03] MEDS: Acetaminophen 325 MG TABLET 650 MG PO ×3 (04:03→21:14)
[2021-12-03 06:56] LABS: Hematocrit 35.6 % (37.0-47.0); Hemoglobin 10.6 g/dl (12.0-16.0); Mean Corpuscular HGB Conc 29.8 g/dl (31.0-35.0); Mean Corpuscular Hemoglobin 28.9 pg (27.0-33.0); Mean Platelet Volume 11.1 fL (9.4-12.3); Platelet Count 238 X10*3/uL (160-400); Red Blood Count 3.67 X10*6/uL (4.20-5.50); Red Cell Distribution Width 13.8 % (11.0-16.0)
[2021-12-03 07:08] LABS: INTERNATIONAL NORM RATIO 2.2 (0.9-1.1); Prothrombin Time 25.7 SEC (9.9-13.0)
[2021-12-03 07:09] LABS: Anion Gap 13 (12-20); Blood Urea Nitrogen 55 mg/dL (9-16); Calcium 9.5 mg/dL (8.4-10.2); Carbon Dioxide 25 mmol/L (22-29); Chloride 105 mmol/L (96-108); Creatinine Clr Calc Pharmacy 53.7; Estimated Glomerular Filt Rate > 60; Glucose Fasting 130 mg/dL (60-99); Potassium 4.5 mmol/L (3.3-5.1); Sodium 138 mmol/L (135-145)
[2021-12-03] MEDS: Aspirin Enteric Coated 81 MG TABLET.DR PO (08:30)
[2021-12-03] MEDS: 0.9 % Sodium Chloride Flush 3 ML SYRINGE IVFLUSH ×2 (08:30→14:21)
[2021-12-03] MEDS: dilTIAZem HCL CD 240 MG CAP.ER.DEG PO (08:31)
[2021-12-03] MEDS: Atorvastatin Calcium 80 MG TABLET PO (08:32)
[2021-12-03] MEDS: Betamethasone Dip Aug 0.05% Cr 15 GM TUBE 1 APPL TOPICAL (08:33)
[2021-12-03] MEDS: Fluticasone Propionate Nasal 16 GM SPRAY 2 SPRAY NOSTRIL-B (08:33)
[2021-12-03] MEDS: Metoprolol Succinate ER 50 MG TAB.ER.24H PO (08:36)
--- NOTE | 2021-12-03 11:51 | HO.PM.IMPN ---
Subjective Subjective Date of Service: 12/03/21 Interval History: cc: chest discomfort interval history:weak Respiratory Respiratory: Reports no additional respiratory complaints Gastrointestinal Gastrointestinal: Reports no additional gastrointestinal complaints Physical Exam Vital Signs: Vital Signs: Last Vital Signs Temp 97.5 F 12/03/21 11:27 Pulse 90 12/03/21 11:27 Resp 18 12/03/21 11:27 BP 123/63 12/03/21 11:27 Pulse Ox 98 12/03/21 08:55 BMI result Body Mass Index 31.6 GENERAL APPEARANCE: in no acute distress, pleasant. NECK: no carotid bruit, no jugular venous distention. SKIN: no suspicious lesions, warm and dry. HEART: no murmurs, irregular rate and rhythm. LUNGS: clear to auscultation bilaterally. ABDOMEN: soft, nontender. EXTREMITIES: no edema. PERIPHERAL PULSES: equal. NEUROLOGIC: No gross deficits, AAO X 3 Objective Data Active Medications Acetaminophen (Acetaminophen 325 Mg Tablet) [address] [facility] Last Admin: 12/03/21 08:41 Dose: Not Given Documented by: VAZQUEZ Non-Admin Reason: pt refused Albuterol/Ipratropium (Albuterol/Iprat 2.5/0.5mg 3 Ml Ampul.Neb) 3 ml INHALE QID PRN PRN Reason: Shortness Of Breath Aspirin (Aspirin Enteric Coated 81 Mg Tablet.) [address] [facility] Last Admin: 12/03/21 08:30 Dose: 81 mg Documented by: VAZQUEZ Atorvastatin Calcium (Atorvastatin Calcium 80 Mg Tablet) [address] [facility] Last Admin: 12/03/21 08:32 Dose: 80 mg Documented by: VAZQUEZ Betamethasone Dipropion Augmented (Betamethasone Dip Aug 0.05% Cr 15 Gm Tube) [address] [facility]; Protocol Last Admin: 12/03/21 08:33 Dose: 1 appl Documented by: VAZQUEZ Diltiazem HCl (Diltiazem Hcl Cd 240 Mg Cap.Er.Deg) [address] [facility]; Protocol Last Admin: 12/03/21 08:31 Dose: 240 mg Documented by: VAZQUEZ Fluticasone Propionate (Fluticasone Propionate Nasal 16 Gm [place]) 2 spray NOSTRIL-B DAILY [facility] Last Admin: 12/03/21 08:33 Dose: 2 spray Documented by: VAZQUEZ Furosemide (Furosemide 40 Mg Tablet) [address] [facility]; Protocol Last Admin: 11/29/21 08:57 Dose: 40 mg Documented by: GEOFF Gabapentin (Gabapentin 100 Mg Capsule) [address] [facility] Last Admin: 12/02/21 21:33 Dose: 100 mg Documented by: KRYSTLE Lisinopril (Lisinopril 5 Mg Tablet) [address] [facility]; Protocol Last Admin: 12/03/21 08:40 Dose: Not Given Documented by: VAZQUEZ Non-Admin Reason: held per provider Metoprolol Succinate (Metoprolol Succinate Er 50 Mg Tab.Er.24h) [address] [facility]; Protocol Last Admin: 12/03/21 08:36 Dose: 50 mg Documented by: VAZQUEZ Olanzapine (Olanzapine 2.5 Mg Tablet) 2.[address] [facility] Last Admin: 11/29/21 08:57 Dose: 2.5 mg Documented by: GEOFF Pharmacy Consult (Consult Rx Perform Med Rec) 1 each MISCELLANE ONCE PRN PRN Reason: Consult order Sodium Chloride (0.9 % Sodium Chloride Flush 3 Ml Syringe) [address] [facility] Last Admin: 12/03/21 08:30 Dose: 3 ml Documented by: VAZQUEZ Spironolactone (Spironolactone 25 Mg Tablet) 12.[address] [facility]; Protocol Last Admin: 12/03/21 08:40 Dose: Not Given Documented by: VAZQUEZ Non-Admin Reason: Physician Held Med Tamsulosin HCl (Tamsulosin Hcl 0.4 Mg Capsule) 0.[address] [facility] Last Admin: 12/02/21 21:33 Dose: 0.4 mg Documented by: KRYSTLE Warfarin Sodium (Warfarin Sodium 7.5 Mg Tablet) 7.5 mg PO DAILY@1800 [facility] Last Admin: 12/02/21 17:15 Dose: 7.5 mg Documented by: VAZQUEZ Labs CBC & Chem 7: 12/03/21 06:36 12/03/21 06:36 Labs: Laboratory Results - last 24 hr 12/03/21 12/03/21 12/03/21 06:36 06:36 06:36 MCV 97.0 MCH 28.9 MCHC 29.8 L RDW 13.8 Plt Count 238 MPV 11.1 Absolute Nucleated RBC 0.000 Nucleated RBC % (auto) 0.0 PT 25.7 H INR 2.2 H Anion Gap 13 Estim Creat Clear Calc 53.7 Estimated GFR > 60 Fasting Glucose 130 H Calcium 9.5 Assessment and Plan (1) Toxic metabolic encephalopathy: Status: Acute (2) Atrial fibrillation with rapid ventricular response: Status: Acute Plan 76 y/o F history of AFib , CHF ef is 20-30% ( echo in 2009), sleep apnea on CPAP, hypertension, asthma/COPD, venoustasis/pvd ?, hx of recent breast cancer right side-came to the hospital because of having progressive shortness of breath and palpitation. chronic AFib with RVR Heart rate mostly well controlled but had some pauses overnight off sotalol, dig stopped, now on cardizem 240, toprol 50, continue to monitor continue coumadin acute on chronic CHF exacerbation with recovered EF sob improving Troponin flat patient denies any chest pain EKG does not show any ST changes except AFib with RVR Switched to p.o. lasix, aldactone Monitor I&O Daily weight Cardiac diet Toxic metabolic encephalopathy : probable related to sundowning , xanax mental status improving UA, chest x-ray, lactic acid, res panel,blood culture, ct head noted bnp trending down fever isolated, resolved, no obvious infection, will dc [place] History of anxiety/question panic: Continue home medications, Xanax p.r.n. for anxiety.? Psych evaluation added. COPD/sleep apnea Continue home medication, CPAP. htn Continue bp meds HLP:? Continue statin. History of breast cancer recent removal from the right breast, daughter will get back to us with the current medication she is taking afterwards. Inpatient stay:?? had some pauses, meds adjusted, bp low at times, continue close monitoring Quality Stroke Does the patient have a stroke diagnosis?: No VTE Prior VTE?: No VTE Risk Level:: Medical - moderate - high VTE Device Contraindication: N/A - Device Ordered VTE Drug Contraindication: N/A - Med Ordered
[2021-12-03] MEDS: Warfarin Sodium 7.5 MG TABLET PO (17:39)
[2021-12-03] MEDS: Tamsulosin HCL 0.4 MG CAPSULE PO (21:15)
[2021-12-03] MEDS: Gabapentin 100 MG CAPSULE PO (21:15)
[2021-12-03] MEDS: lisinopriL 5 MG TABLET PO (21:15)
[2021-12-04] MEDS: 0.9 % Sodium Chloride Flush 3 ML SYRINGE IVFLUSH ×4 (00:22→21:30)
[2021-12-04] MEDS: Acetaminophen 325 MG TABLET 650 MG PO ×3 (02:43→21:30)
[2021-12-04] MEDS: hydrOXYzine HCL 25 MG TABLET PO (02:44)
[2021-12-04 03:17] VITALS: BP 120/64; PULSE 93; RESP 20; TEMP 37; O2SAT 94
[2021-12-04 07:20] VITALS: BP 135/72; PULSE 100; RESP 16; TEMP 36.7; O2SAT 98
[2021-12-04 07:29] LABS: Hematocrit 41.4 % (37.0-47.0); Hemoglobin 12.6 g/dl (12.0-16.0); Mean Corpuscular HGB Conc 30.4 g/dl (31.0-35.0); Mean Corpuscular Hemoglobin 29.6 pg (27.0-33.0); Mean Corpuscular Volume 97.4 fL (80.0-98.0); Mean Platelet Volume 10.8 fL (9.4-12.3); Platelet Count 278 X10*3/uL (160-400); Red Blood Count 4.25 X10*6/uL (4.20-5.50); Red Cell Distribution Width 13.7 % (11.0-16.0); White Blood Count 7.6 X10*3/uL (4.8-10.8)
[2021-12-04 07:47] LABS: Anion Gap 15 (12-20); Blood Urea Nitrogen 33 mg/dL (9-16); Carbon Dioxide 27 mmol/L (22-29); Chloride 101 mmol/L (96-108); Creatinine Clr Calc Pharmacy 60.9; Estimated Glomerular Filt Rate > 60; Glucose Fasting 141 mg/dL (60-99); Sodium 138 mmol/L (135-145)
[2021-12-04 07:55] LABS: Calcium 10.3 mg/dL (8.4-10.2)
[2021-12-04] MEDS: Aspirin Enteric Coated 81 MG TABLET.DR PO (09:28)
[2021-12-04] MEDS: lisinopriL 5 MG TABLET PO ×2 (09:28→21:29)
[2021-12-04] MEDS: dilTIAZem HCL CD 240 MG CAP.ER.DEG PO (09:28)
[2021-12-04] MEDS: Spironolactone 25 MG TABLET 12.5 MG PO (09:28)
[2021-12-04] MEDS: Atorvastatin Calcium 80 MG TABLET PO (09:28)
[2021-12-04] MEDS: Metoprolol Succinate ER 50 MG TAB.ER.24H PO (09:28)
[2021-12-04] MEDS: Betamethasone Dip Aug 0.05% Cr 15 GM TUBE 1 APPL TOPICAL (09:29)
[2021-12-04] MEDS: Fluticasone Propionate Nasal 16 GM SPRAY 2 SPRAY NOSTRIL-B (09:29)
[2021-12-04 09:57] LABS: INTERNATIONAL NORM RATIO 3.2 (0.9-1.1); Prothrombin Time 36.9 SEC (9.9-13.0)
[2021-12-04] MEDS: LORazepam 2 MG/ML VIAL 0.25 MG IVPUSH (10:45)
[2021-12-04 11:29] VITALS: BP 131/69; PULSE 98; RESP 16; TEMP 36.4; O2SAT 100
--- NOTE | 2021-12-04 11:52 | HO.PM.IMPN ---
Subjective Subjective Date of Service: 12/04/21 Interval History: cc: chest discomfort interval history:weak, anxious Cardiovascular Cardiovascular: Reports no additional cardiovascular complaints Respiratory Respiratory: Reports no additional respiratory complaints Physical Exam Vital Signs: Vital Signs: Last Vital Signs Temp 97.5 F 12/04/21 11:29 Pulse 98 12/04/21 11:29 Resp 16 12/04/21 11:29 BP 131/69 12/04/21 11:29 Pulse Ox 100 12/04/21 11:29 BMI result Body Mass Index 31.6 GENERAL APPEARANCE: in no acute distress, pleasant. NECK: no carotid bruit, no jugular venous distention. SKIN: no suspicious lesions, warm and dry. HEART: no murmurs, irregular rate and rhythm. LUNGS: clear to auscultation bilaterally. ABDOMEN: soft, nontender. EXTREMITIES: no edema. PERIPHERAL PULSES: equal. NEUROLOGIC: No gross deficits, AAO X 3 Objective Data Active Medications Acetaminophen (Acetaminophen 325 Mg Tablet) 650 mg PO Q6H [facility] Last Admin: 12/04/21 09:28 Dose: 650 mg Documented by: EMEKA Albuterol/Ipratropium (Albuterol/Iprat 2.5/0.5mg 3 Ml Ampul.Neb) 3 ml INHALE QID PRN PRN Reason: Shortness Of Breath Aspirin (Aspirin Enteric Coated 81 Mg Tablet.) 81 mg PO DAILY [facility] Last Admin: 12/04/21 09:28 Dose: 81 mg Documented by: EMEKA Atorvastatin Calcium (Atorvastatin Calcium 80 Mg Tablet) 80 mg PO DAILY [facility] Last Admin: 12/04/21 09:28 Dose: 80 mg Documented by: EMEKA Betamethasone Dipropion Augmented (Betamethasone Dip Aug 0.05% Cr 15 Gm Tube) 1 appl TOPICAL DAILY [facility]; Protocol Last Admin: 12/04/21 09:29 Dose: 1 appl Documented by: EMEKA Diltiazem HCl (Diltiazem Hcl Cd 240 Mg Cap.Er.Deg) 240 mg PO DAILY [facility]; Protocol Last Admin: 12/04/21 09:28 Dose: 240 mg Documented by: EMEKA Fluticasone Propionate (Fluticasone Propionate Nasal 16 Gm [place]) 2 spray NOSTRIL-B DAILY [facility] Last Admin: 12/04/21 09:29 Dose: 2 spray Documented by: EMEKA Furosemide (Furosemide 40 Mg Tablet) 40 mg PO DAILY [facility]; Protocol Last Admin: 11/29/21 08:57 Dose: 40 mg Documented by: GEOFF Gabapentin (Gabapentin 100 Mg Capsule) 100 mg PO BEDTIME [facility] Last Admin: 12/03/21 21:15 Dose: 100 mg Documented by: IMER Lisinopril (Lisinopril 5 Mg Tablet) 5 mg PO BID [facility]; Protocol Last Admin: 12/04/21 09:28 Dose: 5 mg Documented by: EMEKA Metoprolol Succinate (Metoprolol Succinate Er 50 Mg Tab.Er.24h) 50 mg PO DAILY [facility]; Protocol Last Admin: 12/04/21 09:28 Dose: 50 mg Documented by: EMEKA Olanzapine (Olanzapine 2.5 Mg Tablet) 2.5 mg PO BID [facility] Last Admin: 11/29/21 08:57 Dose: 2.5 mg Documented by: GEOFF Pharmacy Consult (Consult Rx Perform Med Rec) 1 each MISCELLANE ONCE PRN PRN Reason: Consult order Sodium Chloride (0.9 % Sodium Chloride Flush 3 Ml Syringe) 3 ml IVFLUSH QSHIFT [facility] Last Admin: 12/04/21 09:28 Dose: 3 ml Documented by: EMEKA Spironolactone (Spironolactone 25 Mg Tablet) 12.5 mg PO DAILY [facility]; Protocol Last Admin: 12/04/21 09:28 Dose: 12.5 mg Documented by: EMEKA Tamsulosin HCl (Tamsulosin Hcl 0.4 Mg Capsule) 0.4 mg PO BEDTIME [facility] Last Admin: 12/03/21 21:15 Dose: 0.4 mg Documented by: IMER Warfarin Sodium (Warfarin Sodium 7.5 Mg Tablet) 7.5 mg PO DAILY@1800 [facility] Last Admin: 12/03/21 17:39 Dose: 7.5 mg Documented by: IMER Labs CBC & Chem 7: 12/04/21 06:59 12/04/21 06:59 Labs: Laboratory Results - last 24 hr 12/04/21 12/04/21 12/04/21 06:59 06:59 09:40 MCV 97.4 MCH 29.6 MCHC 30.4 L RDW 13.7 Plt Count 278 MPV 10.8 Absolute Nucleated RBC 0.000 Nucleated RBC % (auto) 0.0 PT 36.9 H INR 3.2 H Anion Gap 15 Estim Creat Clear Calc 60.9 Estimated GFR > 60 Fasting Glucose 141 H Calcium 10.3 H D Microbiology Microbiology Results: Microbiology 11/28/21 17:45 Blood Culture - Final Blood - Venous No growth after 5 days. 11/28/21 15:07 Blood Culture - Final Blood - Venous No growth after 5 days. Assessment and Plan (1) Toxic metabolic encephalopathy: Status: Acute (2) Atrial fibrillation with rapid ventricular response: Status: Acute Plan 76 y/o F history of AFib , CHF ef is 20-30% ( echo in 2009), sleep apnea on CPAP, hypertension, asthma/COPD, venoustasis/pvd ?, hx of recent breast cancer right side-came to the hospital because of having progressive shortness of breath and palpitation. chronic AFib with RVR heart rate overall better, but now with some RVR in 160s today a/w anxiety off sotalol, dig stopped, now on cardizem 240, toprol 50, continue to monitor continue coumadin anxiolytics acute on chronic CHF exacerbation with recovered EF sob improving Troponin flat patient denies any chest pain EKG does not show any ST changes except AFib with RVR Switched to p.o. lasix, aldactone Monitor I&O Daily weight Cardiac diet Toxic metabolic encephalopathy : probable related to sundowning , xanax mental status improving UA, chest x-ray, lactic acid, res panel,blood culture, ct head noted bnp trending down fever isolated, resolved, no obvious infection, off abx History of anxiety/question panic: Continue home medications, Xanax p.r.n. for anxiety.? Psych evaluation added. COPD/sleep apnea Continue home medication, CPAP. htn Continue bp meds HLP:? Continue statin. History of breast cancer recent removal from the right breast Inpatient stay:?? heart rate not adequately controlled, inpatient adjustments and monitoring ongoing Quality Stroke Does the patient have a stroke diagnosis?: No VTE Prior VTE?: No VTE Risk Level:: Medical - moderate - high VTE Device Contraindication: N/A - Device Ordered VTE Drug Contraindication: N/A - Med Ordered
--- NOTE | 2021-12-04 12:28 | MHC.CM.PN ---
cm received bed offer from [facility] aware pt will not be able to d/c until tomorrow, cm will complete a hcp w/pt prior to d/c and will leave note for w/e cm to contact family once transfer time is known. cm to cont to follow d/c needs.
--- NOTE | 2021-12-04 13:54 | PC.NURSE ---
[place] catheter removed at 1300 today. Pt dtv at [phone]
[2021-12-04 15:09] VITALS: BP 115/52; PULSE 68; RESP 18; TEMP 36.7; O2SAT 97
[2021-12-04 19:24] VITALS: BP 99/70; PULSE 88; RESP 18; TEMP 36.7; O2SAT 95
[2021-12-04] MEDS: Tamsulosin HCL 0.4 MG CAPSULE PO (21:29)
[2021-12-04] MEDS: Gabapentin 100 MG CAPSULE PO (21:29)
[2021-12-04 23:17] VITALS: BP 97/52; PULSE 72; RESP 18; TEMP 36.2; O2SAT 95
[2021-12-05 00:37] VITALS: PULSE 88; RESP 18; O2SAT 97
[2021-12-05 02:24] VITALS: BP 119/90; PULSE 59; RESP 21; TEMP 36.1
[2021-12-05] MEDS: Acetaminophen 325 MG TABLET 650 MG PO ×2 (03:13→10:13)
[2021-12-05 04:49] VITALS: PULSE 68; RESP 16; O2SAT 96
[2021-12-05 06:31] LABS: Hematocrit 39.3 % (37.0-47.0); Mean Corpuscular HGB Conc 30.5 g/dl (31.0-35.0); Mean Corpuscular Hemoglobin 29.3 pg (27.0-33.0); Mean Corpuscular Volume 95.9 fL (80.0-98.0); Mean Platelet Volume 10.8 fL (9.4-12.3); Platelet Count 275 X10*3/uL (160-400); Red Cell Distribution Width 13.7 % (11.0-16.0); White Blood Count 7.1 X10*3/uL (4.8-10.8)
[2021-12-05 06:46] LABS: Anion Gap 15 (12-20); Blood Urea Nitrogen 33 mg/dL (9-16); Calcium 10.2 mg/dL (8.4-10.2); Carbon Dioxide 26 mmol/L (22-29); Chloride 103 mmol/L (96-108); Estimated Glomerular Filt Rate > 60; Glucose Fasting 136 mg/dL (60-99); Potassium 4.7 mmol/L (3.3-5.1); Sodium 139 mmol/L (135-145)
[2021-12-05 06:57] LABS: INTERNATIONAL NORM RATIO 3.3 (0.9-1.1)
[2021-12-05 07:43] VITALS: BP 134/61; PULSE 72; RESP 20; TEMP 36.6; O2SAT 98
[2021-12-05] MEDS: Metoprolol Succinate ER 50 MG TAB.ER.24H PO (10:12)
[2021-12-05] MEDS: 0.9 % Sodium Chloride Flush 3 ML SYRINGE IVFLUSH (10:12)
[2021-12-05] MEDS: dilTIAZem HCL CD 240 MG CAP.ER.DEG PO (10:12)
[2021-12-05] MEDS: Spironolactone 25 MG TABLET 12.5 MG PO (10:13)
[2021-12-05] MEDS: Atorvastatin Calcium 80 MG TABLET PO (10:13)
[2021-12-05] MEDS: lisinopriL 5 MG TABLET PO (10:13)
[2021-12-05] MEDS: Aspirin Enteric Coated 81 MG TABLET.DR PO (10:13)
--- NOTE | 2021-12-05 10:17 | P.DS_ITS ---
DS: Providers Provider Date of Service: 12/05/21 Date of admission: 11/26/21 16:55 Primary care physician: Peyman Boss MD Consults: 11/26/21 17:17 Consult to Cardiology Routine Consulting Provider[place] [facility] [place] [facility] Reason for consultation: chf/afib Has provider been notified: No 11/26/21 17:20 Consult to Psychiatry Routine Consulting Provider: Psych Covering Reason for consultation: anxiety vs panic symptoms Has provider been notified: No 11/29/21 15:05 Consult to Urology Routine Consulting Provider: Mike Toledo Reason for consultation: urinary retention Has provider been notified: No DS: Diagnosis Discharge Diagnosis (1) Toxic metabolic encephalopathy: Status: Acute (2) Atrial fibrillation with rapid ventricular response: Status: Acute DS: Summary Hospital Course Hospital Course: from initial hpi:Chief Complaint: chf , afib with rvr called for? admission this afternoon. 76 y/o F history of AFib , CHF ef is 20-30% ( echo in 2009), sleep apnea on CPAP, hypertension, asthma/COPD, venoustasis/pvd ?, hx of recent breast cancer right side-came to the hospital because of having progressive shortness of breath and palpitation also having anxiety symptoms living alone, she thought that somebody is in her apartment, according to patient and her son-patient has shortness of breath from couple of years and gets progressively worse from last few months as well as having palpitation unclear if anxiety is contributing because when she lives in her apartment alone she feel somebody in the in the apartment and feels generalized anxiety during that time, Her son kept her with him for 1 month and her symptoms were getting better but then she was moved moved back to live alone-started having palpitation, shortness of breath, also anxiety symptoms and was sent to the hospital further management. Patient complained of waking up with shortness of breath to 3 time in a month. Patient has sleep apnea noncompliant to CPAP. Seen by ED physician patient-admission is for CHF/AFib with RVR. As per the ED note patient was not taking sotalol son clear why. As per the daughter patient was taking sotalol? Patient was currently started on Cardizem drip as per ED physician. As per the daughter also she had recent breast cancer removal as per daughter it was stage I and she was placed on medication after that she does not know the name. Currently patient says her shortness of breath seems improving also feels less palpitations, heart rate is running in 120 range on the tele. Patient denies any nausea vomiting abdominal pain or fever chills or any urinary complaints or weakness or numbness or any chest pain Past surgical history as above. Social history:? Lives alone, no smoking no EtOH or recreational drugs. hospital course: patient was admitted for chronic atrial fibrillation with rapid ventricular response. she was seen by cardiology who recommended stopping sotalol, and has been started on cardizem and toprol. heart rate has been better controlled. for her acute on chronic CHF with recovered EF she was diuresed, transitioned back to po lasix and symptoms resolved. for her toxic metabolic encephalopathy related to ing. this has resolved. patient had one episode of fever, but had no obvious bacterial infection, antibiotics were discontinued. for her anxiety she was seen by psychiatry who discontinued sertraline and added zyprexa. for her copd/danish cpap was continued, for hld statin continued. patient will be discharged to SNF. Time Spent with Patient Time attestation: Total time spent providing and/or coordinating discharge services: Discharge coordination time: Greater than 30 minutes Quality: Safe Use of Opioids Does Pt have an Active Cancer Diagnosis on the Problem List?: No Quality: Stroke Does the patient have a stroke diagnosis?: No Physical Exam Vital Signs: Vital Signs: Last Vital Signs Temp 97.8 F 12/05/21 07:43 Pulse 72 12/05/21 07:43 Resp 20 12/05/21 07:43 BP 134/61 12/05/21 07:43 Pulse Ox 98 12/05/21 07:43 BMI result Body Mass Index 31.6 GENERAL APPEARANCE: in no acute distress, pleasant. NECK: no carotid bruit, no jugular venous distention. SKIN: no suspicious lesions, warm and dry. HEART: no murmurs, irregular rate and rhythm. LUNGS: clear to auscultation bilaterally. ABDOMEN: soft, nontender. EXTREMITIES: no edema. PERIPHERAL PULSES: equal. NEUROLOGIC: No gross deficits, AAO X 3 DS: Data Data Completed and Pending Labs on day of discharge: Laboratory Results - last 24 hr 12/05/21 12/05/21 12/05/21 06:05 06:05 06:05 WBC 7.1 RBC 4.10 L Hgb 12.0 Hct 39.3 MCV 95.9 MCH 29.3 MCHC 30.5 L RDW 13.7 Plt Count 275 MPV 10.8 Absolute Nucleated RBC 0.000 Nucleated RBC % (auto) 0.0 PT 38.0 H INR 3.3 H Sodium 139 Potassium 4.7 Chloride 103 Carbon Dioxide 26 Anion Gap 15 BUN 33 H Creatinine 0.80 Estim Creat Clear Calc 57.0 Estimated GFR > 60 Fasting Glucose 136 H Calcium 10.2 Discharge Plan Discharge Patient Disposition: er [facility] Discharge Diagnosis: afib Referrals: Peyman Boss MD [Primary Care Provider] - 1 Week Discharge Medications: New metoprolol succinate 50 mg Tablet Extended Release 24 Hr 50 mg PO DAILY Qty: 0 0RF Protocol: Hold for SBP/HR < HOLD for SBP < : 90 HOLD for HR < : 60 diltiazem HCl 240 mg Capsule,Extended Release 24hr 240 mg PO DAILY Qty: 0 0RF Protocol: Hold for SBP/HR < HOLD for SBP < : 90 HOLD for HR < : 60 olanzapine 2.5 mg Tablet 2.5 mg PO BID Qty: 0 0RF spironolactone 25 mg Tablet 12.5 mg PO DAILY Qty: 0 0RF Protocol: Hold for SBP< HOLD for SBP < : 90 tamsulosin 0.4 mg Capsule 0.4 mg PO BEDTIME Qty: 0 0RF Continued tramadol 50 mg tablet 1 tab PO Q12H PRN (Reason: Pain) 0RF aspirin 81 mg Tablet,Delayed Release (Dr/Ec) 81 mg PO DAILY 0RF acetaminophen 325 mg tablet 650 mg PO Q6H PRN (Reason: Pain) 0RF rosuvastatin 40 mg tablet 40 mg PO DAILY 0RF lisinopril 5 mg tablet 5 mg PO BID 0RF Combivent Respimat 20-100 mcg/actuation mist 1 puff inhalation QID PRN (Reason: Shortness Of Breath) 0RF warfarin [Jantoven] 5 mg tablet 5 - 10 mg PO DAILY 0RF gabapentin 100 mg capsule 100 mg PO BEDTIME 0RF fluticasone propionate 50 mcg/actuation spray,suspension 2 spray intranasal DAILY 0RF betamethasone, augmented 0.05 % cream 1 appl topical DAILY 0RF Discontinued sertraline 25 mg tablet 25 mg PO DAILY 0RF sotalol [Sotalol AF] 80 mg tablet 80 mg PO BID 0RF Discharge Orders: Discharge Order (Routine); Ordered 12/05/21 Ordered By: Maximiliano Du Activity on Discharge: As tolerated Stand Alone Forms: Patient Portal Discharge page Care Plan Goals: recovery Health Concerns: afib Plan of Treatment: meds adjusted Assessment: see above
[2021-12-05] MEDS: Fluticasone Propionate Nasal 16 GM SPRAY 2 SPRAY NOSTRIL-B (10:20)
[2021-12-05] MEDS: Betamethasone Dip Aug 0.05% Cr 15 GM TUBE 1 APPL TOPICAL (10:20)
--- NOTE | 2021-12-05 11:05 | MHC.CM.PN ---
pt to be dcd toiday at 1 to [facility] notified of dc
[2021-12-05 11:37] VITALS: BP 126/61; PULSE 77; RESP 18; TEMP 36.7; O2SAT 97
[2021-12-05 11:46] LABS: COVID-19 Test Negative (Negative); IDNOW Serial# 16C4AD1C
== END 2021-12-05 15:47 | disposition skilled nursing facility (03) | DRG 291 ==
LOC: HO.ED 04:21 → HO.EDOVER 17:02 → HO.IMC 19:17
PROVIDERS: Admitting Provider Internal Medicine; Emergency Provider Emergency Medicine; PCP Internal Medicine; Visit Provider Internal Medicine
DX: I11.0 Hypertensive heart disease with heart failure (principal); I50.23 Acute on chronic systolic (congestive) heart failure; G92.8 Other toxic encephalopathy; I48.20 Chronic atrial fibrillation, unspecified; F05 Delirium due to known physiological condition; F41.1 Generalized anxiety disorder; E66.9 Obesity, unspecified; Z68.31 Body mass index [BMI] 31.0-31.9, adult; C50.911 Malignant neoplasm of unspecified site of right female breast; E78.5 Hyperlipidemia, unspecified; G47.33 Obstructive sleep apnea (adult) (pediatric); Z20.822 Contact with and (suspected) exposure to COVID-19; Z90.11 Acquired absence of right breast and nipple; Z79.51 Long term (current) use of inhaled steroids; Z79.82 Long term (current) use of aspirin; Z79.01 Long term (current) use of anticoagulants; Z79.899 Other long term (current) drug therapy
CPT/HCPCS: 36415; 70450; 71045; 80048; 80076; 81001; 82803; 83036; 83605; 83735; 83880; 84145; 84443; 84484; 85025; 85027; 85610; 87040; 87633; 87635; 93005; 93306; 94660; 96365; 96366; 96375; 97116; 97162; 99285; 99291; C1758; J1940; J2060; J2543

== ENCOUNTER 2021-12-23 02:55 | Emergency (ER) | payer MEDICARE, MEDICAID, SELFPAY ==
--- NOTE | ~2021-12-23 | XR_ITS ---
EXAMINATION: XR TIBIA AND FIBULA, LEFT CLINICAL INFORMATION: Swelling, ulcer, pain COMPARISON: None TECHNIQUE: AP and lateral views of the left tibia and fibula were obtained. FINDINGS: Alignment at the knee and ankle is anatomic with mild to moderate degenerative change. No acute fracture is seen. Diffuse subcutaneous edema noted in the lower leg along with scattered calcifications. XR/XR tibia fibula LT 2V IMPRESSION: Diffuse subcutaneous edema. No acute osseous findings.
--- NOTE | ~2021-12-23 | XR_ITS ---
EXAMINATION: XR CHEST CLINICAL INFORMATION: Shortness of breath COMPARISON: 11/28/2021 TECHNIQUE: Frontal view of the chest was obtained. FINDINGS: Lung volumes are symmetric. No focal consolidation is seen. Prominence of the central pulmonary vasculature is noted, without overt edema. No pneumothorax or significant pleural effusion. Cardiac silhouette is mildly enlarged. Calcification is present at the aortic arch. Right humeral head surgical anchors. No acute osseous findings are seen. XR/XR chest 1V IMPRESSION: Prominent central vasculature, without overt edema. Mildly enlarged cardiac silhouette.
[2021-12-23 03:28] VITALS: BMI 29.0
[2021-12-23 03:35] VITALS: BP 117/43; PULSE 65; RESP 20; TEMP 36.5; O2SAT 95
--- NOTE | 2021-12-23 03:43 | ECG_ITS ---
Test Reason : Anxiety Blood Pressure : / mmHG Vent. Rate : 096 BPM Atrial Rate : 000 BPM P-R Int : 000 ms QRS Dur : 098 ms QT Int : 362 ms P-R-T Axes : 000 015 083 degrees QTc Int : 457 ms Poor data quality Atrial fibrillation Nonspecific ST abnormality Abnormal ECG When compared with ECG of 02-DEC-2021 09:19, Non-specific change in ST segment in Inferior leads Non-specific change in ST segment in Anterior leads Referred By: Marietta Mead Electronically Signed By:INOCENCIA SHULTZ MD
--- NOTE | 2021-12-23 04:22 | ED.ANXIETY ---
HPI - Anxiety General Chief Complaint: Anxiety Stated Complaint: Nervous Time Seen by Provider: 12/23/21 03:43 Source: patient and educational sign language interpreter Mode of arrival: EMS History of Present Illness HPI narrative: 76-year-old female who is brought in by EMS after she called for awakening and feeling very scared. Patient states that when she 1st moved into her building it was very quiet but over the past few months she has noticed that the lights your going on off in the building across the street. Patient otherwise denies any shortness of breath, chest pain/palpitations, she denies any falls and states that she has expressed these concerns to her children who reassure her. She states that she has been eating well and denies any urinary symptoms. Related Data Home Medications Medication Instructions Recorded Confirmed acetaminophen 325 mg tablet 650 mg PO Q6H PRN 09/17/21 11/26/21 betamethasone, augmented 0.05 % 1 appl TOPICAL DAILY 09/17/21 11/26/21 topical cream fluticasone propionate 50 2 spray INTRANASAL DAILY 09/17/21 11/26/21 mcg/actuation nasal spray,suspension gabapentin 100 mg capsule 100 mg PO BEDTIME 09/17/21 11/26/21 ipratropium 20 mcg-albuterol 100 1 puff INHALATION QID PRN 09/17/21 11/26/21 mcg/actuation mist for inhalation (Combivent Respimat) lisinopril 5 mg tablet 5 mg PO BID 09/17/21 11/26/21 rosuvastatin 40 mg tablet 40 mg PO DAILY 09/17/21 11/26/21 warfarin 5 mg tablet (Jantoven) 5 - 10 mg PO DAILY 09/17/21 11/26/21 aspirin 81 mg tablet,delayed 81 mg PO DAILY 11/26/21 11/26/21 release tramadol 50 mg tablet 1 tab PO Q12H PRN 11/26/21 11/26/21 Previous Rx's Medication Instructions Recorded diltiazem HCl 240 mg 240 mg PO DAILY #0 cap 12/05/21 capsule,extended release 24 hr metoprolol succinate 50 mg 50 mg PO DAILY #0 tab 12/05/21 tablet,extended release 24 hr olanzapine 2.5 mg tablet 2.5 mg PO BID #0 tab 12/05/21 spironolactone 25 mg tablet 12.5 mg PO DAILY #0 tab 12/05/21 tamsulosin 0.4 mg capsule 0.4 mg PO BEDTIME #0 cap 12/05/21 cephalexin 500 mg capsule 500 mg PO Q12H 7 Days #14 cap 12/23/21 Allergies Allergy/AdvReac Type Severity Reaction Status Date / Time No Known Allergies Allergy Mild N/A Verified 11/27/21 02:07 Review of Systems Review of Systems: Pertinent positives and negatives as stated in HPI 10 point review of systems is otherwise negative. [facility] Past Medical History Source: nursing notes reviewed Medical History Anxiety Atrial fibrillation COPD (chronic obstructive pulmonary disease) Depression LEYDA on CPAP Social History Social History Household Members: None Housing: Apartment Do you presently have visiting nurse or other home services: No Alcohol intake: never Patient Tobacco Use Status: Never used Tobacco Advance Directives: No service: No Current occupational status: disabled Physical Exam Vital Signs: Vital Signs: Last Vital Signs Temp 98.2 F 12/23/21 06:13 Pulse 105 H 12/23/21 06:13 Resp 18 12/23/21 06:13 BP 102/43 L 12/23/21 06:13 Pulse Ox 100 12/23/21 06:13 BMI result Body Mass Index 29.0 VITAL SIGNS: Reviewed. GENERAL: Well developed, well nourished, in no acute distress. HEAD: Normocephalic/atraumatic EYES: PERRLA, EOMI EARS: Ext canals without abnormality OROPHARYNX: no oral lesions noted, posterior pharynx clear LUNGS: Normal breath sounds. No adventitious sounds or accessory muscle use. SpO2<100> CARDIOVASCULAR: Regular rate and rhythm without noted murmurs, no JVD patient has bilateral chronic 1+ edema ABDOMEN: Soft, non-tender, non-distended with bowel sounds. MUSCULOSKELETAL: No tenderness, deformities, or effusions noted on gross inspection. EXTREMITIES: No cyanosis, clubbing, but patient has mild swelling to the left lower extremity with warmth to touch and small ulcerations. There is bilateral onychomycosis SKIN: Inspection of the skin reveals no rashes NEUROLOGIC: Alert and oriented x 4. Strength and sensation to light touch were grossly intact x 4. Course Course Course Narrative: 76-year-old female with history and clinical presentation consistent with anxiety, and review of all investigations otherwise negative for acute findings other than UTI as well as mild cellulitis to the left lower extremity. Patient received initial antibiotics here in the emergency room and then was discharged with remaining course. 0755: I called patient's daughter Heather who will come and pick the patient up as soon as she can as she lives in [place]. I informed the patient that her daughter will be arriving shortly to take her home. MDM - Anxiety Lab Data Result diagrams: 12/23/21 04:22 12/23/21 04:22 Labs: Lab Results 12/23/21 12/23/21 12/23/21 Range/Units 04: 04: 04:22 WBC 6.0 (4.8-10.8) X10*3/uL RBC 3.53 L (4.20-5.50) X10*6/uL Hgb 10.3 L (12.0-16.0) g/dl Hct 34.0 L (37.0-47.0) % MCV 96.3 (80.0-98.0) fL MCH 29.2 (27.0-33.0) pg MCHC 30.3 L (31.0-35.0) g/dl RDW 13.6 (11.0-16.0) % Plt Count 204 (160-400) X10*3/uL MPV 10.2 (9.4-12.3) fL Immature Gran % (Auto) 0.3 (0.0-0.4) % Neut % (Auto) 68.0 (45-73) % Lymph % (Auto) 18.0 L (20-40) % [place] % (Auto) 9.1 (2-11) % Eos % (Auto) 4.3 H (0-4) % Baso % (Auto) 0.3 (0-2) % Lymph # (Auto) 1.1 L (1.2-4.9) X10*3/uL [place] # (Auto) 0.6 (0.1-1.2) X10*3/uL Eos # (Auto) 0.3 (0.0-0.4) X10*3/uL Baso # (Auto) 0.0 (0.0-0.2) X10*3/uL Abs Immat Gran (auto) 0.02 (0.00-0.03) X10*3/uL Absolute Neuts (auto) 4.1 (2.0-8.3) x10*3/uL Absolute Nucleated RBC 0.000 (0.0-0.012) X10*3/uL Nucleated RBC % (auto) 0.0 (0.0-0.2) /100WBC PT (9.9-13.0) SEC INR (0.9-1.1) Sodium 137 (135-145) mmol/L Potassium 4.4 (3.3-5.1) mmol/L Chloride 106 (96-108) mmol/L Carbon Dioxide 24 (22-29) mmol/L Anion Gap 11 L (12-20) BUN 27 H (9-16) mg/dL Creatinine 1.01 (0.5-1.4) mg/dL Estim Creat Clear Calc 50.2 Estimated GFR 53 Random Glucose 149 H (60-115) mg/dL Calcium 9.8 (8.4-10.2) mg/dL Total Bilirubin 0.5 (0.0-1.0) mg/dL AST 12 D (5-31) U/L ALT 6 (0-31) U/L Alkaline Phosphatase 107 (39-117) U/L C-Reactive Protein 0.50 (< or = 0.50) mg/dL B-Natriuretic Peptide 185 H (<100) pg/mL Total Protein 7.4 (6.5-8.0) g/dL Albumin 3.7 (3.5-5.0) g/dL Urine Color Urine Appearance Urine pH (5.0-8.0) Ur Specific [place] (1.005-1.025) Urine Protein (NEG-TRACE) MG/DL Urine Glucose (UA) (NEG) MG/DL Urine Ketones (NEG) MG/DL Urine Blood (NEG) Urine Nitrite (NEG) Ur Leukocyte Esterase (NEG) Urine RBC (0) /HPF Urine WBC (0-4) /HPF Ur Squamous Epith Cells /LPF Urine Bacteria /LPF Urine Mucus /LPF COVID-19 (KATHY) (Negative) COVID-19 Clin Com Influenza Type A (SONNY) (Negative) Influenza Type B (SONNY) (Negative) Influenza A & B Note 12/23/21 12/23/21 12/23/21 Range/Units 04:22 04:22 04:22 WBC (4.8-10.8) X10*3/uL RBC (4.20-5.50) X10*6/uL Hgb (12.0-16.0) g/dl Hct (37.0-47.0) % MCV (80.0-98.0) fL MCH (27.0-33.0) pg MCHC (31.0-35.0) g/dl RDW (11.0-16.0) % Plt Count (160-400) X10*3/uL MPV (9.4-12.3) fL Immature Gran % (Auto) (0.0-0.4) % Neut % (Auto) (45-73) % Lymph % (Auto) (20-40) % [place] % (Auto) (2-11) % Eos % (Auto) (0-4) % Baso % (Auto) (0-2) % Lymph # (Auto) (1.2-4.9) X10*3/uL [place] # (Auto) (0.1-1.2) X10*3/uL Eos # (Auto) (0.0-0.4) X10*3/uL Baso # (Auto) (0.0-0.2) X10*3/uL Abs Immat Gran (auto) (0.00-0.03) X10*3/uL Absolute Neuts (auto) (2.0-8.3) x10*3/uL Absolute Nucleated RBC (0.0-0.012) X10*3/uL Nucleated RBC % (auto) (0.0-0.2) /100WBC PT 37.5 H (9.9-13.0) SEC INR 3.2 H (0.9-1.1) Sodium (135-145) mmol/L Potassium (3.3-5.1) mmol/L Chloride (96-108) mmol/L Carbon Dioxide (22-29) mmol/L Anion Gap (12-20) BUN (9-16) mg/dL Creatinine (0.5-1.4) mg/dL Estim Creat Clear Calc Estimated GFR Random Glucose (60-115) mg/dL Calcium (8.4-10.2) mg/dL Total Bilirubin (0.0-1.0) mg/dL AST (5-31) U/L ALT (0-31) U/L Alkaline Phosphatase (39-117) U/L C-Reactive Protein (< or = 0.50) mg/dL B-Natriuretic Peptide (<100) pg/mL Total Protein (6.5-8.0) g/dL Albumin (3.5-5.0) g/dL Urine Color Urine Appearance Urine pH (5.0-8.0) Ur Specific [place] (1.005-1.025) Urine Protein (NEG-TRACE) MG/DL Urine Glucose (UA) (NEG) MG/DL Urine Ketones (NEG) MG/DL Urine Blood (NEG) Urine Nitrite (NEG) Ur Leukocyte Esterase (NEG) Urine RBC (0) /HPF Urine WBC (0-4) /HPF Ur Squamous Epith Cells /LPF Urine Bacteria /LPF Urine Mucus /LPF COVID-19 (KATHY) Negative (Negative) COVID-19 Clin Com See Note Influenza Type A (SONNY) Negative (Negative) Influenza Type B (SONNY) Negative (Negative) Influenza A & B Note See Note 12/23/21 Range/Units 06:19 WBC (4.8-10.8) X10*3/uL RBC (4.20-5.50) X10*6/uL Hgb (12.0-16.0) g/dl Hct (37.0-47.0) % MCV (80.0-98.0) fL MCH (27.0-33.0) pg MCHC (31.0-35.0) g/dl RDW (11.0-16.0) % Plt Count (160-400) X10*3/uL MPV (9.4-12.3) fL Immature Gran % (Auto) (0.0-0.4) % Neut % (Auto) (45-73) % Lymph % (Auto) (20-40) % [place] % (Auto) (2-11) % Eos % (Auto) (0-4) % Baso % (Auto) (0-2) % Lymph # (Auto) (1.2-4.9) X10*3/uL [place] # (Auto) (0.1-1.2) X10*3/uL Eos # (Auto) (0.0-0.4) X10*3/uL Baso # (Auto) (0.0-0.2) X10*3/uL Abs Immat Gran (auto) (0.00-0.03) X10*3/uL Absolute Neuts (auto) (2.0-8.3) x10*3/uL Absolute Nucleated RBC (0.0-0.012) X10*3/uL Nucleated RBC % (auto) (0.0-0.2) /100WBC PT (9.9-13.0) SEC INR (0.9-1.1) Sodium (135-145) mmol/L Potassium (3.3-5.1) mmol/L Chloride (96-108) mmol/L Carbon Dioxide (22-29) mmol/L Anion Gap (12-20) BUN (9-16) mg/dL Creatinine (0.5-1.4) mg/dL Estim Creat Clear Calc Estimated GFR Random Glucose (60-115) mg/dL Calcium (8.4-10.2) mg/dL Total Bilirubin (0.0-1.0) mg/dL AST (5-31) U/L ALT (0-31) U/L Alkaline Phosphatase (39-117) U/L C-Reactive Protein (< or = 0.50) mg/dL B-Natriuretic Peptide (<100) pg/mL Total Protein (6.5-8.0) g/dL Albumin (3.5-5.0) g/dL Urine Color STRAW Urine Appearance HAZY Urine pH 6.0 (5.0-8.0) Ur Specific [place] 1.020 (1.005-1.025) Urine Protein NEG (NEG-TRACE) MG/DL Urine Glucose (UA) NEG (NEG) MG/DL Urine Ketones NEG (NEG) MG/DL Urine Blood TRACE (NEG) Urine Nitrite NEG (NEG) Ur Leukocyte Esterase 1+ H (NEG) Urine RBC 0-2 (0) /HPF Urine WBC 10-14 H (0-4) /HPF Ur Squamous Epith Cells 1+ /LPF Urine Bacteria 1+ /LPF Urine Mucus TRACE /LPF COVID-19 (KATHY) (Negative) COVID-19 Clin Com Influenza Type A (SONNY) (Negative) Influenza Type B (SONNY) (Negative) Influenza A & B Note ECG Data Attestation: I personally reviewed and interpreted this ECG as follows: Prior ECG tracings: available for review Interpretation: Atrial fibrillation, HR-96, no STEMI, QRS/QTC are within normal limits. Discharge Plan Discharge Clinical Impression: Acute UTI, Cellulitis Patient Disposition: Home, Self-Care Instructions: Urinary Tract Infection in Women (ED), Cellulitis (ED), Urinary Tract Infection in Older Adults (ED) Additional Instructions: 1. Reanudar todos los medicamentos caseros seg?n lo prescrito. 2. Le montes recetado un medicamento para la infecci?n en la orina y en la pierna izquier[place]. Debe completar todo el ciclo de antibi?ticos. 3. Андрей un seguimiento con hoang proveedor de atenci?n primaria llamando a la oficina hoy y programando scar alberta para scar reevaluaci?n. Regrese a la yolanda de emergencias si los s?ntomas empeoran. Prescriptions: New cephalexin 500 mg capsule 500 mg PO Q12H 7 Days Qty: 14 0RF No Action tramadol 50 mg tablet 1 tab PO Q12H PRN (Reason: Pain) 0RF aspirin 81 mg Tablet,Delayed Release (Dr/Ec) 81 mg PO DAILY 0RF metoprolol succinate 50 mg Tablet Extended Release 24 Hr 50 mg PO DAILY Qty: 0 0RF Protocol: Hold for SBP/HR < HOLD for SBP < : 90 HOLD for HR < : 60 diltiazem HCl 240 mg Capsule,Extended Release 24hr 240 mg PO DAILY Qty: 0 0RF Protocol: Hold for SBP/HR < HOLD for SBP < : 90 HOLD for HR < : 60 olanzapine 2.5 mg Tablet 2.5 mg PO BID Qty: 0 0RF spironolactone 25 mg Tablet 12.5 mg PO DAILY Qty: 0 0RF Protocol: Hold for SBP< HOLD for SBP < : 90 tamsulosin 0.4 mg Capsule 0.4 mg PO BEDTIME Qty: 0 0RF acetaminophen 325 mg tablet 650 mg PO Q6H PRN (Reason: Pain) 0RF rosuvastatin 40 mg tablet 40 mg PO DAILY 0RF lisinopril 5 mg tablet 5 mg PO BID 0RF Combivent Respimat 20-100 mcg/actuation mist 1 puff inhalation QID PRN (Reason: Shortness Of Breath) 0RF warfarin [Jantoven] 5 mg tablet 5 - 10 mg PO DAILY 0RF gabapentin 100 mg capsule 100 mg PO BEDTIME 0RF fluticasone propionate 50 mcg/actuation spray,suspension 2 spray intranasal DAILY 0RF betamethasone, augmented 0.05 % cream 1 appl topical DAILY 0RF Referrals: Peyman Boss MD [Primary Care Provider] - Print Language: Surinamese
[2021-12-23 04:27] LABS: Basophils Percent Auto 0.3 % (0-2); Eosinophils Absolute Auto 0.3 X10*3/uL (0.0-0.4); Eosinophils Percent Auto 4.3 % (0-4); Hemoglobin 10.3 g/dl (12.0-16.0); Imm Gran Abs Auto 0.02 X10*3/uL (0.00-0.03); Imm Gran Pct Auto 0.3 % (0.0-0.4); Lymphocytes Absolute Auto 1.1 X10*3/uL (1.2-4.9); MANUAL DIFF FLAG NO; Mean Corpuscular HGB Conc 30.3 g/dl (31.0-35.0); Mean Corpuscular Hemoglobin 29.2 pg (27.0-33.0); Mean Corpuscular Volume 96.3 fL (80.0-98.0); Mean Platelet Volume 10.2 fL (9.4-12.3); Monocytes Absolute Auto 0.6 X10*3/uL (0.1-1.2); Monocytes Percent Auto 9.1 % (2-11); Neutrophils Absolute Auto 4.1 x10*3/uL (2.0-8.3); Platelet Count 204 X10*3/uL (160-400); Red Blood Count 3.53 X10*6/uL (4.20-5.50); Red Cell Distribution Width 13.6 % (11.0-16.0)
[2021-12-23 04:33] LABS: INTERNATIONAL NORM RATIO 3.2 (0.9-1.1); Prothrombin Time 37.5 SEC (9.9-13.0)
[2021-12-23 04:46] LABS: Alanine Aminotransferase 6 U/L (0-31); Albumin Level 3.7 g/dL (3.5-5.0); Alkaline Phosphatase 107 U/L (39-117); Anion Gap 11 (12-20); Aspartate Amino Transferase 12 U/L (5-31); Bilirubin Total 0.5 mg/dL (0.0-1.0); Blood Urea Nitrogen 27 mg/dL (9-16); Calcium 9.8 mg/dL (8.4-10.2); Carbon Dioxide 24 mmol/L (22-29); Chloride 106 mmol/L (96-108); Creatinine Clr Calc Pharmacy 50.2; Estimated Glomerular Filt Rate 53; Glucose Random 149 mg/dL (60-115); Potassium 4.4 mmol/L (3.3-5.1); Sodium 137 mmol/L (135-145); Total Protein 7.4 g/dL (6.5-8.0)
[2021-12-23 04:48] LABS: B Type Natriuretic Peptide 185 pg/mL (<100)
[2021-12-23 04:51] LABS: COVID-19 Test Negative (Negative); IDNOW Serial# 16C4AD1C; Influenza A Negative (Negative); Influenza B2 Negative (Negative)
--- NOTE | 2021-12-23 06:09 | PC.NURSE ---
I assumed nursing care of Chayito upon her arrival to bed 2 from EMS. She presents for evaluation of anxiety. The pt is portuguese speaking only. She makes eye contact with Rn and is calm and cooperative. Respirations are non-labored, RR WNL, room air sat's WNL. Pt is resting comfortably in bed at this time, taking PO fluids without difficulty.
[2021-12-23 06:13] VITALS: BP 102/43; PULSE 105; RESP 18; TEMP 36.8; O2SAT 100
[2021-12-23 06:32] LABS: Appearance Urine HAZY; Color Urine STRAW; Glucose Urine UA NEG (NEG); Leukocyte Esterase Urine 1+ (NEG); Nitrite Urine NEG (NEG); UACC Culture Trigger YES; Urine Blood TRACE (NEG); Urine Ketones NEG (NEG); Urine Protein NEG (NEG-TRACE)
[2021-12-23 06:40] LABS: Bacteria Urine 1+ /LPF; Mucus Urine TRACE /LPF; RBC Urine 0-2 /HPF (0); Squamous Epithelial Cell Urine 1+ /LPF
[2021-12-23] MEDS: cephALEXin 500 MG CAPSULE PO (07:55)
[2021-12-23] MEDS: Acetaminophen 325 MG TABLET 975 MG PO (07:56)
== END 2021-12-23 08:18 | disposition home or self-care (01) ==
PROVIDERS: Emergency Provider Student in an Organized Health Care Education/Training Program; PCP Internal Medicine
DX: N39.0 Urinary tract infection, site not specified (principal); L03.116 Cellulitis of left lower limb; F41.9 Anxiety disorder, unspecified; I48.91 Unspecified atrial fibrillation; J44.9 Chronic obstructive pulmonary disease, unspecified; G47.33 Obstructive sleep apnea (adult) (pediatric); Z99.89 Dependence on other enabling machines and devices; Z20.822 Contact with and (suspected) exposure to COVID-19
CPT/HCPCS: 36415; 71045; 73590; 80053; 81001; 83880; 85025; 85610; 86140; 87086; 87502; 87635; 93005; 99283; 99284

== ENCOUNTER 2022-01-05 23:29 | Emergency (ER) | payer MEDICARE, MEDICAID, SELFPAY ==
--- NOTE | ~2022-01-05 | XR_ITS ---
EXAMINATION: 2 VIEW CHEST AND SOFT TISSUE NECK CLINICAL INFORMATION: Upper airway sounds COMPARISON: Chest radiograph 11/28/2021 TECHNIQUE: AP and lateral neck, PA and lateral chest radiograph FINDINGS: Neck: Degenerative changes are present in the neck most marked from C4 through C7 with disc space narrowing endplate sclerosis and osteophytes. No significant prevertebral soft tissue swelling is seen CHEST: Compared to the prior study, there is central pulmonary vascular congestion and increased interstitial markings suggestive of interstitial edema. The heart remains enlarged. No gross pleural effusions are seen. Degenerative changes are present throughout the spine. Suture anchors are present in the right shoulder. XR/XR soft tissue neck IMPRESSION: Cardiomegaly with pulmonary vascular congestion and mild interstitial edema.
--- NOTE | ~2022-01-05 | CT_ITS ---
EXAMINATION: CT CHEST WITHOUT CONTRAST CT ABDOMEN AND PELVIS WITHOUT CONTRAST CLINICAL INFORMATION: Tracheomalacia. Rule out foreign body. Right-sided abdominal pain. COMPARISON: CTA 02/25/2009 TECHNIQUE: Multidetector volumetric imaging was performed through the chest, abdomen and pelvis without contrast. Sagittal and coronal reformatted images were obtained on the technologist's workstation. Axial MIP volume rendering provided. This CT examination was performed using dose optimization techniques as appropriate, variously including the following: *Automated exposure control *Adjustment of mA and/or kV according to patient size (this includes techniques or standardized protocols for targeted exams where dose is matched to indication/reason for exam; i.e. extremities or head) *Use of iterative reconstruction technique DLP: 1757 mGy-cm. FINDINGS: CHEST: Lungs: Motion limits evaluation. Tracheal narrowing consistent with tracheomalacia. No effusion. Small pleural effusions. Prominent central vasculature with mild septal thickening, consistent with edema. No pneumothorax. Mediastinum: The heart is prominent. There is no pericardial effusion. Coronary artery calcifications. No hilar or mediastinal lymphadenopathy. Chest Wall/Axilla: No lymphadenopathy. No chest wall mass. ABDOMEN/PELVIS: Liver, Gallbladder, Biliary Tree: The liver is normal in size, shape, and attenuation. No focal hepatic lesion or biliary ductal dilatation is present. Suspect small stones in the gallbladder lumen. No wall thickening or adjacent inflammation. Pancreas: Unremarkable. Spleen: Unremarkable. Adrenal Glands: Unremarkable. Kidneys and Ureters: The kidneys are normal in size, shape, and attenuation. No hydronephrosis or hydroureter. Bilateral nonobstructing calculi. On the left there is a midpole calculus which measures 0.3 cm, 9.5 cm from the posterior axillary line. On the right there are greater than 8 calculi which measures 0.2 cm, mostly at the upper pole, 7 cm from the posterior axillary line. Bladder: Unremarkable. Gastrointestinal Tract: The stomach is unremarkable. Normal caliber small bowel. No obstruction. Scattered colonic diverticulosis without diverticulitis. No free air. No free fluid. Abdominal Wall: No hernia is demonstrated. Anasarca. Lymphovascular Structures: Lymph nodes: Normal. Vascular: Normal caliber aorta with mild atherosclerotic calcification. Pelvic Viscera: The uterus and adnexa are unremarkable. OSSEOUS STRUCTURES: No suspicious sclerotic or lytic bone lesions are identified. Degenerative changes throughout the spine. Multilevel vacuum disc phenomenon with prominent endplate osteophytes. CT/CT abdomen pelvis wo con IMPRESSION: Motion limited evaluation. Tracheal narrowing consistent with tracheomalacia. Small pleural effusions. Mild edema. Bilateral nonobstructing renal calculi. Cholelithiasis without evidence of cholecystitis.
--- NOTE | ~2022-01-05 | CT_ITS ---
EXAMINATION: CT SOFT TISSUE NECK WITHOUT CONTRAST CLINICAL INFORMATION: Stridor. COMPARISON: CT chest from 02/25/2009. TECHNIQUE: Multidetector helical imaging was performed in the axial plane without intravenous contrast. Multiple axial reformats and coronal/sagittal reconstructions were created the technologist workstation for review. This CT examination was performed using dose optimization techniques as appropriate, variously including the following: *Automated exposure control. *Adjustment of mA and/or kV according to patient size (this includes techniques or standardized protocols for targeted exams where dose is matched to indication/reason for exam; i.e. extremities or head). *Use of iterative reconstruction technique. DLP: 465 mGy-cm FINDINGS: Moderately motion degraded exam. No significant cutaneous thickening or subcutaneous inflammation. No discrete fluid collection within the deep tissues of the neck. The premaxillary, retromaxillary, pterygopalatine fossa, orbital apical, parapharyngeal, and prelaryngeal adipose tissue is maintained. Normal appearance of the parotid and submandibular glands. Scattered subcentimeter lymph nodes bilaterally, none of which are pathologically enlarged. Mildly prominent lymphoid tissue within the bilateral posterior triangles without pathologically enlarged lymphadenopathy. No demonstrated focal lesion within the intrinsic tissues of the tongue or floor of mouth. Normal mucosal contours of the pharynx and larynx. Normal appearance of the hyoid bone and thyroid cartilage. There is focal narrowing of the trachea at the thoracic inlet with abrupt rightward deviation, similar to exam from 2008. Poorly defined moderate enlargement of the thyroid gland in this region. There also appears to be nonspecific concentric wall thickening of the esophagus in this region. Otherwise, the airways remains widely patent. No radiopaque foreign bodies. The atlantooccipital and atlantoaxial articulations remain well aligned. Straightening of the normal cervical lordosis. Mild degenerative anterolistheses of C3 on C4 and C4 on C5. Otherwise, normal anatomic alignment. No evidence of acute fracture or subluxation of the cervical spine. The vertebral body heights are maintained. Advanced degenerative disc disease from C4-T2. Moderate degenerative disc disease at all additional cervical levels. Facet and uncovertebral joint arthropathy leads to osseous encroachment on the neural foramina from C3-T1. There is no prevertebral soft tissue swelling. The visualized portion of the skull base is without significant abnormalities. The visualized paranasal sinuses are clear. The mastoid air cells and middle ear cavities are clear. The patient is edentulous. Bilateral lens extractions. CT Upper Chest: Small volume bilateral pleural effusions. Mild interlobular septal thickening and peribronchial wall thickening in the visualized upper lungs. Aortic arch is of normal contour and caliber with moderate to extensive underlying calcific atherosclerotic disease. CT/CT soft tissue neck wo con IMPRESSION: Focal narrowing of the trachea at the thoracic inlet with abrupt rightward deviation, similar to 2009. Poorly defined enlargement of the thyroid gland in this region. There also appears to be nonspecific concentric wall thickening of the esophagus in this region. Further characterization of the soft tissue changes at this location is limited on the noncontrast evaluation. Follow-up thyroid ultrasound may better characterize some of this change. Although contrast-enhanced imaging, MRI, and/or endoscopic evaluation may ultimately be helpful to better evaluate the upper esophagus. Small bilateral pleural effusions. Interlobular septal thickening and peribronchial wall thickening suggestive of underlying interstitial edema.
--- NOTE | ~2022-01-05 | XR_ITS ---
EXAMINATION: 2 VIEW CHEST AND SOFT TISSUE NECK CLINICAL INFORMATION: Upper airway sounds COMPARISON: Chest radiograph 11/28/2021 TECHNIQUE: AP and lateral neck, PA and lateral chest radiograph FINDINGS: Neck: Degenerative changes are present in the neck most marked from C4 through C7 with disc space narrowing endplate sclerosis and osteophytes. No significant prevertebral soft tissue swelling is seen CHEST: Compared to the prior study, there is central pulmonary vascular congestion and increased interstitial markings suggestive of interstitial edema. The heart remains enlarged. No gross pleural effusions are seen. Degenerative changes are present throughout the spine. Suture anchors are present in the right shoulder. XR/XR chest 2V IMPRESSION: Cardiomegaly with pulmonary vascular congestion and mild interstitial edema.
[2022-01-05 23:37] VITALS: BP 130/64; PULSE 125; RESP 16; TEMP 36.6; O2SAT 97
[2022-01-05 23:42] LABS: Glucose, Whole Blood 153 mg/dL (60-115)
[2022-01-06] VITALS (23 sets, daily range): BP systolic 112–150; BP diastolic 52–84; PULSE 66–124; RESP 12–24; TEMP 36.4–36.5; O2SAT 80–100
--- NOTE | 2022-01-06 | ECG_ITS ---
Test Reason : MED CLEARANCE Blood Pressure : / mmHG Vent. Rate : 112 BPM Atrial Rate : 000 BPM P-R Int : 000 ms QRS Dur : 094 ms QT Int : 376 ms P-R-T Axes : 000 001 018 degrees QTc Int : 513 ms Atrial fibrillation with rapid ventricular response Abnormal ECG When compared with ECG of 23-DEC-2021 03:48, Non-specific change in ST segment in Anterior leads T wave inversion no longer evident in Anterior leads Referred By: Marietta Mead Electronically Signed By:ANGELLA JOSE
[2022-01-06 00:06] LABS: Appearance Urine CLEAR; Color Urine YELLOW; Glucose Urine UA NEG (NEG); Leukocyte Esterase Urine 2+ (NEG); Nitrite Urine NEG (NEG); PH 5.5 (5.0-8.0); Urine Blood NEG (NEG); Urine Ketones NEG (NEG); Urine Protein TRACE MG/DL (NEG-TRACE)
[2022-01-06 00:21] LABS: Amphetamine Screen Urine Not Detected (Not Detect); Barbiturates, Urine Not Detected (Not Detect); Benzodiazepines Screen Urine Not Detected (Not Detect); Cannabinoid Screen Urine Not Detected (Not Detect); Cocaine Screen Urine Not Detected (Not Detect); Fentanyl, urine Not Detected (Not Detect); Opiate Screen Urine Not Detected (Not Detect); Phencyclidine Screen Urine Not Detected (Not Detect)
[2022-01-06 00:23] LABS: COVID-19 Test Negative (Negative)
[2022-01-06 00:27] LABS: Bacteria Urine TRACE /LPF; Mucus Urine TRACE /LPF; Squamous Epithelial Cell Urine 2+ /LPF
[2022-01-06 00:28] LABS: Hyaline Casts Urine 0-2 /LPF
--- NOTE | 2022-01-06 00:36 | ED_ITS ---
HPI - Anxiety General Chief Complaint: Anxiety Stated Complaint: Anxiety Time Seen by Provider: 01/06/22 00:14 Source: patient and EMS Mode of arrival: EMS Limitations: no limitations History of Present Illness HPI narrative: Patient comes to the emergency room via EMS. Patient is by herself, patient states she started panicking after she smelled a very strong scent of insecticide. Patient states that in the past she has had disc issues before, of smelling insecticide, but usually she is able to ignore it. Patient states that this time it was very strong, started feeling very anxious. Related Data Home Medications Medication Instructions Recorded Confirmed warfarin 5 mg tablet (Jantoven) 5 - 10 mg PO DAILY 09/17/21 01/05/22 acetaminophen 325 mg tablet 2 tab PO Q6H PRN 01/05/22 01/05/22 gabapentin 100 mg capsule 1 cap PO BEDTIME 01/05/22 01/05/22 ipratropium 20 mcg-albuterol 100 1 puff INHALATION QID 01/05/22 01/05/22 mcg/actuation mist for inhalation (Combivent Respimat) letrozole 2.5 mg tablet 1 tab PO DAILY 01/05/22 01/05/22 lisinopril 5 mg tablet 1 tab PO DAILY 01/05/22 01/05/22 metoprolol succinate 50 mg 1 tab PO DAILY 01/05/22 01/05/22 tablet,extended release 24 hr rosuvastatin 40 mg tablet 1 tab PO DAILY 01/05/22 01/05/22 sotalol 80 mg tablet (Sotalol AF) 1 tab PO BID 01/05/22 01/05/22 spironolactone 25 mg tablet 0.5 tab PO QAM 01/05/22 01/05/22 tamsulosin 0.4 mg capsule 1 cap PO DAILY 01/05/22 01/05/22 Previous Rx's Medication Instructions Recorded diltiazem HCl 240 mg 240 mg PO DAILY #0 cap 12/05/21 capsule,extended release 24 hr Allergies Allergy/AdvReac Type Severity Reaction Status Date / Time No Known Allergies Allergy Mild N/A Verified 11/27/21 02:07 Review of Systems Review of Systems: Constitutional : No Weight loss, No Fever, No Chills, No Night Sweats, No Fatigue, No Malaise ENT/Mouth : No Hearing loss, No Ear Pain, No Nasal Congestion, No Sinus Pain, No Hoarseness, No sore throat, No Rhinorrhea, No Swallowing Difficulty Eyes: No Eye Pain, No Swelling, No Redness, No Foreign Body, No Discharge, No V ision Changes Cardiovascular : No Chest Pain, No SOB, No Dyspnea on Exertion, No Orthopnea, No Edema, No Palpitations Respiratory : No Cough, No Sputum, No Wheezing, No Smoke Exposure, No Dyspnea Gastrointestinal : No Nausea, No Vomiting, No Diarrhea, No Constipation, No abdominal Pain, No Hematochezia, No Melena Genitourinary : no irregular bleeding, No Dysuria, No Urinary Frequency, No Hematuria, No Urinary Incontinence, No Urgency, No Flank Pain, No Urinary Flow Changes, No Hesitancy Musculoskeletal : No joint pain, No Myalgias, No Joint Swelling Skin : No Skin Lesions, No rash Neuro : No Weakness, No Numbness, No Paresthesias, No Loss of Consciousness, No Dizziness, No Headache Psych : Feeling anxious, no suicidal homicidal ideation Heme/Lymph: No Bruising, No Bleeding,No Lymphadenopathy Endocrine : No Polyuria, No Polydipsia, No Temperature Intolerance [facility] Past Medical History Medical History Anxiety Atrial fibrillation COPD (chronic obstructive pulmonary disease) Depression LEYDA on CPAP Social History Social History Household Members: None Housing: Apartment Do you presently have visiting nurse or other home services: No Alcohol intake: never Patient Tobacco Use Status: Never used Tobacco Advance Directives: No service: No Current occupational status: disabled Physical Exam Vital Signs: Vital Signs: Last Vital Signs Temp 97.9 F 01/05/22 23:37 Pulse 100 01/06/22 01:23 Resp 18 01/06/22 01:23 BP 126/62 01/06/22 01:23 Pulse Ox 97 01/06/22 01:23 BMI result Body Mass Index 30.0 Const: Other: Appearance: Alert. Oriented X3. No acute distress. Eyes: Pupils equal, round and reactive to light. ENT: Pharynx normal. Neck: Normal inspection. Neck supple. No lymph nodes noted. No crepitus CVS: Normal heart rate and rhythm. Pulses normal. Normal S1 and S2 Respiratory: No respiratory distress. Breath sounds normal. No Wheezing. No rales Abdomen: Soft and nontender. No rigidity. No distention. Skin: Skin warm and dry. Normal skin color. Normal skin turgor. Extremities: No lower extremity edema. No Lacerations. No Rash Neuro: Oriented X 3. No motor deficit. No sensory deficit. Moving all extre mities. No slurred speech. CN 2 through 12 grossly intact Psych: calm, cooperative, anxious, seems to be speaking in tangents. Course Course Course Narrative: Patient is tachycardic, patient states that she feels very anxious, states that she is very compliant with her heart medications. It is unclear if patient is having a factory hallucinations versus someone actually sprayed insecticide in the building. However , EMS did not mention anything about the test being a strong smell of insecticide in the patient's residence. Patient's left side at baseline. Patient is comfortably resting, heart rate 100, blood pressure 126/62. [facility] network consult pending. Physician observation started at 02:06 Sign-out given to Dr. Mead [facility] - Anxiety Lab Data Result diagrams: 01/06/22 00:43 01/06/22 00:43 Labs: Lab Results 01/05/22 01/05/22 01/05/22 Range/Units 23:38 23:52 23:55 WBC (4.8-10.8) X10*3/uL RBC (4.20-5.50) X10*6/uL Hgb (12.0-16.0) g/dl Hct (37.0-47.0) % MCV (80.0-98.0) fL MCH (27.0-33.0) pg MCHC (31.0-35.0) g/dl RDW (11.0-16.0) % Plt Count (160-400) X10*3/uL MPV (9.4-12.3) fL Immature Gran % (Auto) (0.0-0.4) % Neut % (Auto) (45-73) % Lymph % (Auto) (20-40) % Schuyler % (Auto) (2-11) % Eos % (Auto) (0-4) % Baso % (Auto) (0-2) % Lymph # (Auto) (1.2-4.9) X10*3/uL Schuyler # (Auto) (0.1-1.2) X10*3/uL Eos # (Auto) (0.0-0.4) X10*3/uL Baso # (Auto) (0.0-0.2) X10*3/uL Abs Immat Gran (auto) (0.00-0.03) X10*3/uL Absolute Neuts (auto) (2.0-8.3) x10*3/uL Absolute Nucleated RBC (0.0-0.012) X10*3/uL Nucleated RBC % (auto) (0.0-0.2) /100WBC PT (9.9-13.0) SEC INR (0.9-1.1) Sodium (135-145) mmol/L Potassium (3.3-5.1) mmol/L Chloride (96-108) mmol/L Carbon Dioxide (22-29) mmol/L Anion Gap (12-20) BUN (9-16) mg/dL Creatinine (0.5-1.4) mg/dL Estim Creat Clear Calc Estimated GFR POC Glucose 153 H (60-115) mg/dL Random Glucose (60-115) mg/dL Calcium (8.4-10.2) mg/dL Total Bilirubin (0.0-1.0) mg/dL Direct Bilirubin (0.0-0.5) mg/dL AST (5-31) U/L ALT (0-31) U/L Alkaline Phosphatase (39-117) U/L Total Protein (6.5-8.0) g/dL Albumin (3.5-5.0) g/dL TSH (0.32-4.0) uIU/mL Urine Color Urine Appearance Urine pH (5.0-8.0) Ur Specific Pillager (1.005-1.025) Urine Protein (NEG-TRACE) MG/DL Urine Glucose (UA) (NEG) MG/DL Urine Ketones (NEG) MG/DL Urine Blood (NEG) Urine Nitrite (NEG) Ur Leukocyte Esterase (NEG) Urine RBC (0) /HPF Urine WBC (0-4) /HPF Ur Squamous Epith Cells /LPF Urine Bacteria /LPF Hyaline Casts /LPF Urine Mucus /LPF Salicylates (15-30) mg/dL Urine Opiates Screen Not Detected (Not Detect) Urine Fentanyl Screen Not Detected (Not Detect) Acetaminophen (<30) mcg/mL Ur Barbiturates Screen Not Detected (Not Detect) Ur Phencyclidine Scrn Not Detected (Not Detect) Ur Amphetamines Screen Not Detected (Not Detect) U Benzodiazepines Scrn Not Detected (Not Detect) Urine Cocaine Screen Not Detected (Not Detect) U Marijuana (THC) Screen Not Detected (Not Detect) COVID-19 (KATHY) Negative (Negative) COVID-19 Clin Com See Note 01/05/22 01/06/22 01/06/22 Range/Units 23:55 00:43 00:43 WBC 6.5 (4.8-10.8) X10*3/uL RBC 3.23 L (4.20-5.50) X10*6/uL Hgb 9.4 L (12.0-16.0) g/dl Hct 31.7 L (37.0-47.0) % MCV 98.1 H (80.0-98.0) fL MCH 29.1 (27.0-33.0) pg MCHC 29.7 L (31.0-35.0) g/dl RDW 14.7 (11.0-16.0) % Plt Count 179 (160-400) X10*3/uL MPV 10.4 (9.4-12.3) fL Immature Gran % (Auto) 0.3 (0.0-0.4) % Neut % (Auto) 67.4 (45-73) % Lymph % (Auto) 18.7 L (20-40) % Schuyler % (Auto) 9.1 (2-11) % Eos % (Auto) 4.0 (0-4) % Baso % (Auto) 0.5 (0-2) % Lymph # (Auto) 1.2 (1.2-4.9) X10*3/uL Schuyler # (Auto) 0.6 (0.1-1.2) X10*3/uL Eos # (Auto) 0.3 (0.0-0.4) X10*3/uL Baso # (Auto) 0.0 (0.0-0.2) X10*3/uL Abs Immat Gran (auto) 0.02 (0.00-0.03) X10*3/uL Absolute Neuts (auto) 4.4 (2.0-8.3) x10*3/uL Absolute Nucleated RBC 0.000 (0.0-0.012) X10*3/uL Nucleated RBC % (auto) 0.0 (0.0-0.2) /100WBC PT (9.9-13.0) SEC INR (0.9-1.1) Sodium 143 (135-145) mmol/L Potassium 3.8 (3.3-5.1) mmol/L Chloride 111 H (96-108) mmol/L Carbon Dioxide 25 (22-29) mmol/L Anion Gap 11 L (12-20) BUN 27 H (9-16) mg/dL Creatinine 1.28 (0.5-1.4) mg/dL Estim Creat Clear Calc 37.5 Estimated GFR 40 POC Glucose (60-115) mg/dL Random Glucose 173 H (60-115) mg/dL Calcium 10.3 H (8.4-10.2) mg/dL Total Bilirubin (0.0-1.0) mg/dL Direct Bilirubin (0.0-0.5) mg/dL AST (5-31) U/L ALT (0-31) U/L Alkaline Phosphatase (39-117) U/L Total Protein (6.5-8.0) g/dL Albumin (3.5-5.0) g/dL TSH (0.32-4.0) uIU/mL Urine Color YELLOW Urine Appearance CLEAR Urine pH 5.5 (5.0-8.0) Ur Specific Pillager 1.020 (1.005-1.025) Urine Protein TRACE (NEG-TRACE) MG/DL Urine Glucose (UA) NEG (NEG) MG/DL Urine Ketones NEG (NEG) MG/DL Urine Blood NEG (NEG) Urine Nitrite NEG (NEG) Ur Leukocyte Esterase 2+ H (NEG) Urine RBC 1-4 (0) /HPF Urine WBC 10-14 H (0-4) /HPF Ur Squamous Epith Cells 2+ /LPF Urine Bacteria TRACE /LPF Hyaline Casts 0-2 /LPF Urine Mucus TRACE /LPF Salicylates < 5.0 L (15-30) mg/dL Urine Opiates Screen (Not Detect) Urine Fentanyl Screen (Not Detect) Acetaminophen 4 (<30) mcg/mL Ur Barbiturates Screen (Not Detect) Ur Phencyclidine Scrn (Not Detect) Ur Amphetamines Screen (Not Detect) U Benzodiazepines Scrn (Not Detect) Urine Cocaine Screen (Not Detect) U Marijuana (THC) Screen (Not Detect) COVID-19 (KATHY) (Negative) COVID-19 Clin Com 01/06/22 01/06/22 Range/Units 00:43 00:43 WBC (4.8-10.8) X10*3/uL RBC (4.20-5.50) X10*6/uL Hgb (12.0-16.0) g/dl Hct (37.0-47.0) % MCV (80.0-98.0) fL MCH (27.0-33.0) pg MCHC (31.0-35.0) g/dl RDW (11.0-16.0) % Plt Count (160-400) X10*3/uL MPV (9.4-12.3) fL Immature Gran % (Auto) (0.0-0.4) % Neut % (Auto) (45-73) % Lymph % (Auto) (20-40) % Schuyler % (Auto) (2-11) % Eos % (Auto) (0-4) % Baso % (Auto) (0-2) % Lymph # (Auto) (1.2-4.9) X10*3/uL Schuyler # (Auto) (0.1-1.2) X10*3/uL Eos # (Auto) (0.0-0.4) X10*3/uL Baso # (Auto) (0.0-0.2) X10*3/uL Abs Immat Gran (auto) (0.00-0.03) X10*3/uL Absolute Neuts (auto) (2.0-8.3) x10*3/uL Absolute Nucleated RBC (0.0-0.012) X10*3/uL Nucleated RBC % (auto) (0.0-0.2) /100WBC PT 28.0 H (9.9-13.0) SEC INR 2.4 H (0.9-1.1) Sodium (135-145) mmol/L Potassium (3.3-5.1) mmol/L Chloride (96-108) mmol/L Carbon Dioxide (22-29) mmol/L Anion Gap (12-20) BUN (9-16) mg/dL Creatinine (0.5-1.4) mg/dL Estim Creat Clear Calc Estimated GFR POC Glucose (60-115) mg/dL Random Glucose (60-115) mg/dL Calcium (8.4-10.2) mg/dL Total Bilirubin 0.5 (0.0-1.0) mg/dL Direct Bilirubin 0.2 (0.0-0.5) mg/dL AST 53 H (5-31) U/L ALT 62 H (0-31) U/L Alkaline Phosphatase 132 H D (39-117) U/L Total Protein 7.1 (6.5-8.0) g/dL Albumin 3.6 (3.5-5.0) g/dL TSH 0.71 (0.32-4.0) uIU/mL Urine Color Urine Appearance Urine pH (5.0-8.0) Ur Specific Pillager (1.005-1.025) Urine Protein (NEG-TRACE) MG/DL Urine Glucose (UA) (NEG) MG/DL Urine Ketones (NEG) MG/DL Urine Blood (NEG) Urine Nitrite (NEG) Ur Leukocyte Esterase (NEG) Urine RBC (0) /HPF Urine WBC (0-4) /HPF Ur Squamous Epith Cells /LPF Urine Bacteria /LPF Hyaline Casts /LPF Urine Mucus /LPF Salicylates (15-30) mg/dL Urine Opiates Screen (Not Detect) Urine Fentanyl Screen (Not Detect) Acetaminophen (<30) mcg/mL Ur Barbiturates Screen (Not Detect) Ur Phencyclidine Scrn (Not Detect) Ur Amphetamines Screen (Not Detect) U Benzodiazepines Scrn (Not Detect) Urine Cocaine Screen (Not Detect) U Marijuana (THC) Screen (Not Detect) COVID-19 (KATHY) (Negative) COVID-19 Clin Com Discharge Plan Discharge Clinical Impression: Anxiety, Olfactory hallucination Patient Disposition: Still a Patient Prescriptions: No Action diltiazem HCl 240 mg Capsule,Extended Release 24hr 240 mg PO DAILY Qty: 0 0RF Protocol: Hold for SBP/HR < HOLD for SBP < : 90 HOLD for HR < : 60 metoprolol succinate 50 mg tablet extended release 24 hr 1 tab PO DAILY 0RF sotalol [Sotalol AF] 80 mg tablet 1 tab PO BID 0RF spironolactone 25 mg tablet 0.5 tab PO QAM 0RF tamsulosin 0.4 mg capsule 1 cap PO DAILY 0RF lisinopril 5 mg tablet 1 tab PO DAILY 0RF gabapentin 100 mg capsule 1 cap PO BEDTIME 0RF letrozole 2.5 mg tablet 1 tab PO DAILY 0RF rosuvastatin 40 mg tablet 1 tab PO DAILY 0RF acetaminophen 325 mg tablet 2 tab PO Q6H PRN (Reason: Headache) 0RF Combivent Respimat 20-100 mcg/actuation mist 1 puff inhalation QID 0RF warfarin [Jantoven] 5 mg tablet 5 - 10 mg PO DAILY 0RF
[2022-01-06 00:50] LABS: Basophils Percent Auto 0.5 % (0-2); Eosinophils Absolute Auto 0.3 X10*3/uL (0.0-0.4); Hematocrit 31.7 % (37.0-47.0); Hemoglobin 9.4 g/dl (12.0-16.0); Imm Gran Abs Auto 0.02 X10*3/uL (0.00-0.03); Imm Gran Pct Auto 0.3 % (0.0-0.4); Lymphocytes Absolute Auto 1.2 X10*3/uL (1.2-4.9); Lymphocytes Percent Auto 18.7 % (20-40); Mean Corpuscular HGB Conc 29.7 g/dl (31.0-35.0); Mean Corpuscular Hemoglobin 29.1 pg (27.0-33.0); Mean Corpuscular Volume 98.1 fL (80.0-98.0); Mean Platelet Volume 10.4 fL (9.4-12.3); Monocytes Absolute Auto 0.6 X10*3/uL (0.1-1.2); Monocytes Percent Auto 9.1 % (2-11); Neutrophils Absolute Auto 4.4 x10*3/uL (2.0-8.3); Neutrophils Percent Auto 67.4 % (45-73); Platelet Count 179 X10*3/uL (160-400); Red Blood Count 3.23 X10*6/uL (4.20-5.50); Red Cell Distribution Width 14.7 % (11.0-16.0); White Blood Count 6.5 X10*3/uL (4.8-10.8)
[2022-01-06 00:51] LABS: MANUAL DIFF FLAG NO
[2022-01-06 01:05] LABS: Acetaminophen LAB 4 mcg/mL (<30); Alanine Aminotransferase 62 U/L (0-31); Albumin Level 3.6 g/dL (3.5-5.0); Alkaline Phosphatase 132 U/L (39-117); Anion Gap 11 (12-20); Aspartate Amino Transferase 53 U/L (5-31); Bilirubin Direct 0.2 mg/dL (0.0-0.5); Bilirubin Total 0.5 mg/dL (0.0-1.0); Blood Urea Nitrogen 27 mg/dL (9-16); Calcium 10.3 mg/dL (8.4-10.2); Carbon Dioxide 25 mmol/L (22-29); Chloride 111 mmol/L (96-108); Creatinine Clr Calc Pharmacy 37.5; Estimated Glomerular Filt Rate 40; Glucose Random 173 mg/dL (60-115); Potassium 3.8 mmol/L (3.3-5.1); Salicylate < 5.0 mg/dL (15-30); Sodium 143 mmol/L (135-145); Total Protein 7.1 g/dL (6.5-8.0)
[2022-01-06 01:11] LABS: INTERNATIONAL NORM RATIO 2.4 (0.9-1.1)
[2022-01-06 01:36] LABS: TSH reflex Free T4 0.71 uIU/mL (0.32-4.0)
[2022-01-06] MEDS: Albuterol Sulfate 90 MCG 8 GM INHALER 2 PUFF INHALE (05:50)
--- NOTE | 2022-01-06 06:16 | PC.NURSE ---
Patient slept well, out of bed x 3 for bathroom use, use walker to ambulates but needs supervision, Dyspnea on stress secondary to COPD, Ventolin 2 puff administered at 0550 with effect, alert and oriented x 3, primary Tajik speaking, VSS, med rec completed/OCT updated, Awaiting N assessment in the morning, behavior pleasant, will continue to monitor
--- NOTE | 2022-01-06 07:13 | PC.NURSE ---
patient appears resting but periodically awake at present respirations are even and unlabored patient appears in no distress
[2022-01-06] MEDS: Albuterol/Iprat 2.5/0.5MG 3 ML AMPUL.NEB INHALE ×4 (08:27→19:32)
--- NOTE | 2022-01-06 09:29 | PC.NURSE ---
clients daughter and RN BUILDING calls t/w this mornins states client may be just anxious and that some nearby neighbor is smoking THC in their apartment and this is what client may be experiencing at home [phone] [phone]
--- NOTE | 2022-01-06 09:33 | PHA.MEDREC ---
Pharmacy Consult ? Medication Reconciliation Pharmacy has reviewed the medication reconciliation. Patient's daughter reports giving 4.5 mg of warfarin by splitting the tablet once the one half splinting it again. The total dose she is actually giving 3.75 mg. The daughter also reports that the patient's sotalol has been discontinued. Herminia Tidwell, rebecaD
[2022-01-06] MEDS: Spironolactone 25 MG TABLET 12.5 MG PO (09:34)
[2022-01-06] MEDS: Atorvastatin Calcium 80 MG TABLET PO (09:34)
[2022-01-06] MEDS: dilTIAZem HCL CD 240 MG CAP.ER.DEG PO (09:35)
[2022-01-06] MEDS: Letrozole 2.5 MG TABLET PO (09:35)
[2022-01-06] MEDS: Tamsulosin HCL 0.4 MG CAPSULE PO (09:35)
[2022-01-06] MEDS: lisinopriL 5 MG TABLET PO (09:36)
[2022-01-06] MEDS: Sertraline HCL 25 MG TABLET PO (09:39)
--- NOTE | 2022-01-06 16:39 | MHC.CARE ---
1200 Spoke to patient's daughter in the waiting room who came to the ED to pick her mother up. She stated she does not have concerns about her mother returning home, she is with her everyday and helps with her personal care, chores and appointments. Reported that her mother was hospitalized here for two weeks and subsequently went to a rehab facility for treatment of pneumonia, returned home on January 18 and is anxious about her breathing. New neighbors are smoking marijuana and patient's daughter suspects that it makes her mother worried that it will interfere with her breathing. Patient was meeting with [facility] and not quite ready for discharge, daughter said she has an appointment at 1230 and would come back afterwards. 1500 Met with patient in [facility] via certified medical asst for risk assessment and treatment recommendations. She was alert and oriented, engaged easily. Patient restated that she does not want to live in her apartment building anymore, does not like it and does not feel safe but unable to explain directly why and was somewhat tangential, does not think should live with either her son or daughter. Patient emphatically denied suicidal ideation now or at any time in her life, ?I follow God.? She reported that she is close with her children, especially her daughter who does so much for her. Patient was in agreement to a therapy referral and the CARE Team will put that in through [facility] and that agency will contact patient directly. Patient?s daughter was encouraged to speak to her mother?s PCP about have a [place] assessment and consider this presentation could be related to dementia/cognitive decline and updated about the [facility] referral.
[2022-01-06] MEDS: dexAMETHasone sod phosphate 10 MG/ML VIAL IVPUSH (18:22)
[2022-01-06] MEDS: Warfarin Sodium 1.25 MG HALFTAB PO (18:44)
[2022-01-06] MEDS: Warfarin Sodium 2.5 MG TABLET PO (18:45)
--- NOTE | 2022-01-06 19:54 | PC.NURSE ---
pt presents with mild increase work of breathing, audible stridor/agonal breathing. pt placed on 2lpm for comfort, difficulty getting SPO2 readings. attempted forehead,ear, fingers. dtr at bedside. concerned about breathing, but states this is intermittenly how her mother sounds, but not continually.
[2022-01-06] MEDS: Lidocaine HCl 4 % MPF w/MADgic 5 ML AMPUL 1 APPL TOPICAL (20:00)
[2022-01-06 22:39] LABS: VBG Base Excess 4.8 mmol/L; VBG HCO3 34 mmol/L (22-26); VBG pCO2 76 mmHg; VBG pH 7.25 (7.32-7.43); VBG pO2 172 mmHg
[2022-01-06 22:39] LABS: Venous Blood Gas Refer to POC result
[2022-01-06 23:02] LABS: B Type Natriuretic Peptide 262 pg/mL (<100)
--- NOTE | 2022-01-06 23:10 | PC.NURSE ---
pt pulling at CPAP mask, further agitated. RT took CPAP off, unable to tolerate. Epi neb being given by RT
[2022-01-06] MEDS: Racepinephrine HCL 0.5 ML VIAL.NEB INHALE (23:15)
--- NOTE | 2022-01-06 23:17 | ED.GENADULT ---
HPI - General Adult General Chief complaint: Anxiety Stated complaint: Anxiety Time Seen by Provider: 01/06/22 00:14 Source: patient and EMS Mode of arrival: EMS Limitations: no limitations Related Data Home Medications Medication Instructions Recorded Confirmed warfarin 5 mg tablet (Jantoven) 2.5 mg PO DAILY 09/17/21 01/06/22 acetaminophen 325 mg tablet 2 tab PO Q6H PRN 01/05/22 01/05/22 gabapentin 100 mg capsule 1 cap PO BEDTIME 01/05/22 01/05/22 ipratropium 20 mcg-albuterol 100 1 puff INHALATION QID 01/05/22 01/05/22 mcg/actuation mist for inhalation (Combivent Respimat) letrozole 2.5 mg tablet 1 tab PO DAILY 01/05/22 01/05/22 lisinopril 5 mg tablet 1 tab PO DAILY 01/05/22 01/05/22 metoprolol succinate 50 mg 1 tab PO DAILY 01/05/22 01/05/22 tablet,extended release 24 hr rosuvastatin 40 mg tablet 1 tab PO DAILY 01/05/22 01/05/22 spironolactone 25 mg tablet 0.5 tab PO QAM 01/05/22 01/05/22 tamsulosin 0.4 mg capsule 1 cap PO DAILY 01/05/22 01/05/22 olanzapine 10 mg tablet 1 tab PO BEDTIME 01/06/22 01/06/22 sertraline 25 mg tablet 1 tab PO DAILY 01/06/22 01/06/22 warfarin 5 mg tablet (Jantoven) 1.25 mg PO DAILY 01/06/22 01/06/22 Previous Rx's Medication Instructions Recorded diltiazem HCl 240 mg 240 mg PO DAILY #0 cap 12/05/21 capsule,extended release 24 hr cefuroxime axetil 250 mg tablet 250 mg PO BID 7 Days #14 tab 01/06/22 Allergies Allergy/AdvReac Type Severity Reaction Status Date / Time No Known Allergies Allergy Mild N/A Verified 11/27/21 02:07 [facility] Past Medical History Medical History Anxiety Atrial fibrillation COPD (chronic obstructive pulmonary disease) Depression LEYDA on CPAP Social History Social History Household Members: None Housing: Apartment Do you presently have visiting nurse or other home services: No Alcohol intake: never Patient Tobacco Use Status: Never used Tobacco Advance Directives: No service: No Current occupational status: disabled Physical Exam ED Vital Signs: Vital Signs - 24 hr 01/06/22 23:10 01/06/22 23:19 01/07/22 00:01 Pulse Rate 101 H 124 H 109 H Respiratory Rate 19 18 Blood Pressure Pulse Oximetry 100 96 96 01/07/22 03:06 01/07/22 04:20 01/07/22 04:22 Pulse Rate 112 H 145 H 140 H Respiratory Rate 18 16 Blood Pressure 147/85 H Pulse Oximetry 100 01/07/22 04:31 01/07/22 04:37 01/07/22 04:39 Pulse Rate 106 H 96 101 H Respiratory Rate 16 16 15 Blood Pressure Pulse Oximetry 100 100 99 01/07/22 04:41 01/07/22 04:50 01/07/22 04:57 Pulse Rate 84 100 114 H Respiratory Rate 19 16 15 Blood Pressure 128/82 Pulse Oximetry 99 100 99 01/07/22 06:02 01/07/22 07:56 01/07/22 08:04 Pulse Rate 108 H 127 H 120 H Respiratory Rate 18 100 H 24 H Blood Pressure Pulse Oximetry 01/07/22 08:09 01/07/22 08:16 01/07/22 08:33 Pulse Rate 119 H 106 H Respiratory Rate 20 18 16 Blood Pressure Pulse Oximetry 96 98 01/07/22 09:06 Pulse Rate Respiratory Rate Blood Pressure 154/96 H Pulse Oximetry BMI result Body Mass Index 30.0 Medical Decision Making Lab Data Result diagrams: 01/07/22 08:49 01/07/22 08:49 Labs: Lab Results 01/05/22 01/05/22 01/05/22 Range/Units 23:38 23:52 23:55 WBC (4.8-10.8) X10*3/uL RBC (4.20-5.50) X10*6/uL Hgb (12.0-16.0) g/dl Hct (37.0-47.0) % MCV (80.0-98.0) fL MCH (27.0-33.0) pg MCHC (31.0-35.0) g/dl RDW (11.0-16.0) % Plt Count (160-400) X10*3/uL MPV (9.4-12.3) fL Immature Gran % (Auto) (0.0-0.4) % Neut % (Auto) (45-73) % Lymph % (Auto) (20-40) % [place] % (Auto) (2-11) % Eos % (Auto) (0-4) % Baso % (Auto) (0-2) % Lymph # (Auto) (1.2-4.9) X10*3/uL [place] # (Auto) (0.1-1.2) X10*3/uL Eos # (Auto) (0.0-0.4) X10*3/uL Baso # (Auto) (0.0-0.2) X10*3/uL Abs Immat Gran (auto) (0.00-0.03) X10*3/uL Absolute Neuts (auto) (2.0-8.3) x10*3/uL Absolute Nucleated RBC (0.0-0.012) X10*3/uL Nucleated RBC % (auto) (0.0-0.2) /100WBC Smear Tech's Comments PT (9.9-13.0) SEC INR (0.9-1.1) D-Dimer High Sensitivty NG/ML VBG pH (7.32-7.43) VBG pCO2 mmHg VBG pO2 mmHg VBG HCO3 (22-26) mmol/L VBG O2 Saturation % VBG Base Excess mmol/L Sodium (135-145) mmol/L Potassium (3.3-5.1) mmol/L Chloride (96-108) mmol/L Carbon Dioxide (22-29) mmol/L Anion Gap (12-20) BUN (9-16) mg/dL Creatinine (0.5-1.4) mg/dL Estim Creat Clear Calc Estimated GFR POC Glucose 153 H (60-115) mg/dL Random Glucose (60-115) mg/dL Calcium (8.4-10.2) mg/dL Total Bilirubin (0.0-1.0) mg/dL Direct Bilirubin (0.0-0.5) mg/dL AST (5-31) U/L ALT (0-31) U/L Alkaline Phosphatase (39-117) U/L Troponin I High Sens (<3.5-17.0) ng/L B-Natriuretic Peptide (<100) pg/mL Total Protein (6.5-8.0) g/dL Albumin (3.5-5.0) g/dL TSH (0.32-4.0) uIU/mL Urine Color Urine Appearance Urine pH (5.0-8.0) Ur Specific [place] (1.005-1.025) Urine Protein (NEG-TRACE) MG/DL Urine Glucose (UA) (NEG) MG/DL Urine Ketones (NEG) MG/DL Urine Blood (NEG) Urine Nitrite (NEG) Ur Leukocyte Esterase (NEG) Urine RBC (0) /HPF Urine WBC (0-4) /HPF Ur Squamous Epith Cells /LPF Urine Bacteria /LPF Hyaline Casts /LPF Urine Mucus /LPF Salicylates (15-30) mg/dL Urine Opiates Screen Not Detected (Not Detect) Urine Fentanyl Screen Not Detected (Not Detect) Acetaminophen (<30) mcg/mL Ur Barbiturates Screen Not Detected (Not Detect) Ur Phencyclidine Scrn Not Detected (Not Detect) Ur Amphetamines Screen Not Detected (Not Detect) U Benzodiazepines Scrn Not Detected (Not Detect) Urine Cocaine Screen Not Detected (Not Detect) U Marijuana (THC) Screen Not Detected (Not Detect) COVID-19 (KATHY) Negative (Negative) COVID-19 Clin Com See Note 01/05/22 01/06/22 01/06/22 Range/Units 23:55 00:43 00:43 WBC 6.5 (4.8-10.8) X10*3/uL RBC 3.23 L (4.20-5.50) X10*6/uL Hgb 9.4 L (12.0-16.0) g/dl Hct 31.7 L (37.0-47.0) % MCV 98.1 H (80.0-98.0) fL MCH 29.1 (27.0-33.0) pg MCHC 29.7 L (31.0-35.0) g/dl RDW 14.7 (11.0-16.0) % Plt Count 179 (160-400) X10*3/uL MPV 10.4 (9.4-12.3) fL Immature Gran % (Auto) 0.3 (0.0-0.4) % Neut % (Auto) 67.4 (45-73) % Lymph % (Auto) 18.7 L (20-40) % [place] % (Auto) 9.1 (2-11) % Eos % (Auto) 4.0 (0-4) % Baso % (Auto) 0.5 (0-2) % Lymph # (Auto) 1.2 (1.2-4.9) X10*3/uL [place] # (Auto) 0.6 (0.1-1.2) X10*3/uL Eos # (Auto) 0.3 (0.0-0.4) X10*3/uL Baso # (Auto) 0.0 (0.0-0.2) X10*3/uL Abs Immat Gran (auto) 0.02 (0.00-0.03) X10*3/uL Absolute Neuts (auto) 4.4 (2.0-8.3) x10*3/uL Absolute Nucleated RBC 0.000 (0.0-0.012) X10*3/uL Nucleated RBC % (auto) 0.0 (0.0-0.2) /100WBC Smear Tech's Comments PT (9.9-13.0) SEC INR (0.9-1.1) D-Dimer High Sensitivty NG/ML VBG pH (7.32-7.43) VBG pCO2 mmHg VBG pO2 mmHg VBG HCO3 (22-26) mmol/L VBG O2 Saturation % VBG Base Excess mmol/L Sodium 143 (135-145) mmol/L Potassium 3.8 (3.3-5.1) mmol/L Chloride 111 H (96-108) mmol/L Carbon Dioxide 25 (22-29) mmol/L Anion Gap 11 L (12-20) BUN 27 H (9-16) mg/dL Creatinine 1.28 (0.5-1.4) mg/dL Estim Creat Clear Calc 37.5 Estimated GFR 40 POC Glucose (60-115) mg/dL Random Glucose 173 H (60-115) mg/dL Calcium 10.3 H (8.4-10.2) mg/dL Total Bilirubin (0.0-1.0) mg/dL Direct Bilirubin (0.0-0.5) mg/dL AST (5-31) U/L ALT (0-31) U/L Alkaline Phosphatase (39-117) U/L Troponin I High Sens (<3.5-17.0) ng/L B-Natriuretic Peptide (<100) pg/mL Total Protein (6.5-8.0) g/dL Albumin (3.5-5.0) g/dL TSH (0.32-4.0) uIU/mL Urine Color YELLOW Urine Appearance CLEAR Urine pH 5.5 (5.0-8.0) Ur Specific [place] 1.020 (1.005-1.025) Urine Protein TRACE (NEG-TRACE) MG/DL Urine Glucose (UA) NEG (NEG) MG/DL Urine Ketones NEG (NEG) MG/DL Urine Blood NEG (NEG) Urine Nitrite NEG (NEG) Ur Leukocyte Esterase 2+ H (NEG) Urine RBC 1-4 (0) /HPF Urine WBC 10-14 H (0-4) /HPF Ur Squamous Epith Cells 2+ /LPF Urine Bacteria TRACE /LPF Hyaline Casts 0-2 /LPF Urine Mucus TRACE /LPF Salicylates < 5.0 L (15-30) mg/dL Urine Opiates Screen (Not Detect) Urine Fentanyl Screen (Not Detect) Acetaminophen 4 (<30) mcg/mL Ur Barbiturates Screen (Not Detect) Ur Phencyclidine Scrn (Not Detect) Ur Amphetamines Screen (Not Detect) U Benzodiazepines Scrn (Not Detect) Urine Cocaine Screen (Not Detect) U Marijuana (THC) Screen (Not Detect) COVID-19 (KATHY) (Negative) COVID-19 Clin Com 01/06/22 01/06/22 01/06/22 Range/Units 00:43 00:43 22:30 WBC (4.8-10.8) X10*3/uL RBC (4.20-5.50) X10*6/uL Hgb (12.0-16.0) g/dl Hct (37.0-47.0) % MCV (80.0-98.0) fL MCH (27.0-33.0) pg MCHC (31.0-35.0) g/dl RDW (11.0-16.0) % Plt Count (160-400) X10*3/uL MPV (9.4-12.3) fL Immature Gran % (Auto) (0.0-0.4) % Neut % (Auto) (45-73) % Lymph % (Auto) (20-40) % [place] % (Auto) (2-11) % Eos % (Auto) (0-4) % Baso % (Auto) (0-2) % Lymph # (Auto) (1.2-4.9) X10*3/uL [place] # (Auto) (0.1-1.2) X10*3/uL Eos # (Auto) (0.0-0.4) X10*3/uL Baso # (Auto) (0.0-0.2) X10*3/uL Abs Immat Gran (auto) (0.00-0.03) X10*3/uL Absolute Neuts (auto) (2.0-8.3) x10*3/uL Absolute Nucleated RBC (0.0-0.012) X10*3/uL Nucleated RBC % (auto) (0.0-0.2) /100WBC Smear Tech's Comments PT 28.0 H (9.9-13.0) SEC INR 2.4 H (0.9-1.1) D-Dimer High Sensitivty NG/ML VBG pH 7.25 L (7.32-7.43) VBG pCO2 76 mmHg VBG pO2 172 mmHg VBG HCO3 34 H (22-26) mmol/L VBG O2 Saturation 99.0 % VBG Base Excess 4.8 mmol/L Sodium (135-145) mmol/L Potassium (3.3-5.1) mmol/L Chloride (96-108) mmol/L Carbon Dioxide (22-29) mmol/L Anion Gap (12-20) BUN (9-16) mg/dL Creatinine (0.5-1.4) mg/dL Estim Creat Clear Calc Estimated GFR POC Glucose (60-115) mg/dL Random Glucose (60-115) mg/dL Calcium (8.4-10.2) mg/dL Total Bilirubin 0.5 (0.0-1.0) mg/dL Direct Bilirubin 0.2 (0.0-0.5) mg/dL AST 53 H (5-31) U/L ALT 62 H (0-31) U/L Alkaline Phosphatase 132 H D (39-117) U/L Troponin I High Sens (<3.5-17.0) ng/L B-Natriuretic Peptide (<100) pg/mL Total Protein 7.1 (6.5-8.0) g/dL Albumin 3.6 (3.5-5.0) g/dL TSH 0.71 (0.32-4.0) uIU/mL Urine Color Urine Appearance Urine pH (5.0-8.0) Ur Specific [place] (1.005-1.025) Urine Protein (NEG-TRACE) MG/DL Urine Glucose (UA) (NEG) MG/DL Urine Ketones (NEG) MG/DL Urine Blood (NEG) Urine Nitrite (NEG) Ur Leukocyte Esterase (NEG) Urine RBC (0) /HPF Urine WBC (0-4) /HPF Ur Squamous Epith Cells /LPF Urine Bacteria /LPF Hyaline Casts /LPF Urine Mucus /LPF Salicylates (15-30) mg/dL Urine Opiates Screen (Not Detect) Urine Fentanyl Screen (Not Detect) Acetaminophen (<30) mcg/mL Ur Barbiturates Screen (Not Detect) Ur Phencyclidine Scrn (Not Detect) Ur Amphetamines Screen (Not Detect) U Benzodiazepines Scrn (Not Detect) Urine Cocaine Screen (Not Detect) U Marijuana (THC) Screen (Not Detect) COVID-19 (KATHY) (Negative) COVID-19 Clin Com 01/06/22 01/07/22 01/07/22 Range/Units 22:38 00:25 00:25 WBC (4.8-10.8) X10*3/uL RBC (4.20-5.50) X10*6/uL Hgb (12.0-16.0) g/dl Hct (37.0-47.0) % MCV (80.0-98.0) fL MCH (27.0-33.0) pg MCHC (31.0-35.0) g/dl RDW (11.0-16.0) % Plt Count (160-400) X10*3/uL MPV (9.4-12.3) fL Immature Gran % (Auto) (0.0-0.4) % Neut % (Auto) (45-73) % Lymph % (Auto) (20-40) % [place] % (Auto) (2-11) % Eos % (Auto) (0-4) % Baso % (Auto) (0-2) % Lymph # (Auto) (1.2-4.9) X10*3/uL [place] # (Auto) (0.1-1.2) X10*3/uL Eos # (Auto) (0.0-0.4) X10*3/uL Baso # (Auto) (0.0-0.2) X10*3/uL Abs Immat Gran (auto) (0.00-0.03) X10*3/uL Absolute Neuts (auto) (2.0-8.3) x10*3/uL Absolute Nucleated RBC (0.0-0.012) X10*3/uL Nucleated RBC % (auto) (0.0-0.2) /100WBC Smear Tech's Comments PT (9.9-13.0) SEC INR (0.9-1.1) D-Dimer High Sensitivty < 150 NG/ML VBG pH (7.32-7.43) VBG pCO2 mmHg VBG pO2 mmHg VBG HCO3 (22-26) mmol/L VBG O2 Saturation % VBG Base Excess mmol/L Sodium (135-145) mmol/L Potassium (3.3-5.1) mmol/L Chloride (96-108) mmol/L Carbon Dioxide (22-29) mmol/L Anion Gap (12-20) BUN (9-16) mg/dL Creatinine (0.5-1.4) mg/dL Estim Creat Clear Calc Estimated GFR POC Glucose (60-115) mg/dL Random Glucose (60-115) mg/dL Calcium (8.4-10.2) mg/dL Total Bilirubin (0.0-1.0) mg/dL Direct Bilirubin (0.0-0.5) mg/dL AST (5-31) U/L ALT (0-31) U/L Alkaline Phosphatase (39-117) U/L Troponin I High Sens 6.0 D (<3.5-17.0) ng/L B-Natriuretic Peptide 262 H (<100) pg/mL Total Protein (6.5-8.0) g/dL Albumin (3.5-5.0) g/dL TSH (0.32-4.0) uIU/mL Urine Color Urine Appearance Urine pH (5.0-8.0) Ur Specific [place] (1.005-1.025) Urine Protein (NEG-TRACE) MG/DL Urine Glucose (UA) (NEG) MG/DL Urine Ketones (NEG) MG/DL Urine Blood (NEG) Urine Nitrite (NEG) Ur Leukocyte Esterase (NEG) Urine RBC (0) /HPF Urine WBC (0-4) /HPF Ur Squamous Epith Cells /LPF Urine Bacteria /LPF Hyaline Casts /LPF Urine Mucus /LPF Salicylates (15-30) mg/dL Urine Opiates Screen (Not Detect) Urine Fentanyl Screen (Not Detect) Acetaminophen (<30) mcg/mL Ur Barbiturates Screen (Not Detect) Ur Phencyclidine Scrn (Not Detect) Ur Amphetamines Screen (Not Detect) U Benzodiazepines Scrn (Not Detect) Urine Cocaine Screen (Not Detect) U Marijuana (THC) Screen (Not Detect) COVID-19 (KATHY) (Negative) COVID-19 Clin Com 01/07/22 01/07/22 01/07/22 Range/Units 08:49 08:49 08:49 WBC 9.1 (4.8-10.8) X10*3/uL RBC 3.43 L (4.20-5.50) X10*6/uL Hgb 9.9 L (12.0-16.0) g/dl Hct 33.8 L (37.0-47.0) % MCV 98.5 H (80.0-98.0) fL MCH 28.9 (27.0-33.0) pg MCHC 29.3 L (31.0-35.0) g/dl RDW 14.6 (11.0-16.0) % Plt Count 204 (160-400) X10*3/uL MPV 9.6 (9.4-12.3) fL Immature Gran % (Auto) 0.8 H (0.0-0.4) % Neut % (Auto) 93.2 H (45-73) % Lymph % (Auto) 4.0 L (20-40) % [place] % (Auto) 1.9 L (2-11) % Eos % (Auto) 0.0 (0-4) % Baso % (Auto) 0.1 (0-2) % Lymph # (Auto) 0.4 L (1.2-4.9) X10*3/uL [place] # (Auto) 0.2 (0.1-1.2) X10*3/uL Eos # (Auto) 0.0 (0.0-0.4) X10*3/uL Baso # (Auto) 0.0 (0.0-0.2) X10*3/uL Abs Immat Gran (auto) 0.07 H (0.00-0.03) X10*3/uL Absolute Neuts (auto) 8.5 H (2.0-8.3) x10*3/uL Absolute Nucleated RBC 0.000 (0.0-0.012) X10*3/uL Nucleated RBC % (auto) 0.0 (0.0-0.2) /100WBC Smear Tech's Comments VERIFIED PT 32.2 H (9.9-13.0) SEC INR 2.8 H (0.9-1.1) D-Dimer High Sensitivty NG/ML VBG pH (7.32-7.43) VBG pCO2 mmHg VBG pO2 mmHg VBG HCO3 (22-26) mmol/L VBG O2 Saturation % VBG Base Excess mmol/L Sodium 142 (135-145) mmol/L Potassium 4.8 D (3.3-5.1) mmol/L Chloride 106 (96-108) mmol/L Carbon Dioxide 25 (22-29) mmol/L Anion Gap 16 (12-20) BUN 22 H (9-16) mg/dL Creatinine 0.88 (0.5-1.4) mg/dL Estim Creat Clear Calc 54.6 Estimated GFR > 60 POC Glucose (60-115) mg/dL Random Glucose 212 H (60-115) mg/dL Calcium 10.3 H (8.4-10.2) mg/dL Total Bilirubin 0.8 (0.0-1.0) mg/dL Direct Bilirubin 0.4 (0.0-0.5) mg/dL AST 38 H (5-31) U/L ALT 57 H (0-31) U/L Alkaline Phosphatase 125 H (39-117) U/L Troponin I High Sens (<3.5-17.0) ng/L B-Natriuretic Peptide (<100) pg/mL Total Protein 8.2 H (6.5-8.0) g/dL Albumin 4.1 (3.5-5.0) g/dL TSH (0.32-4.0) uIU/mL Urine Color Urine Appearance Urine pH (5.0-8.0) Ur Specific [place] (1.005-1.025) Urine Protein (NEG-TRACE) MG/DL Urine Glucose (UA) (NEG) MG/DL Urine Ketones (NEG) MG/DL Urine Blood (NEG) Urine Nitrite (NEG) Ur Leukocyte Esterase (NEG) Urine RBC (0) /HPF Urine WBC (0-4) /HPF Ur Squamous Epith Cells /LPF Urine Bacteria /LPF Hyaline Casts /LPF Urine Mucus /LPF Salicylates (15-30) mg/dL Urine Opiates Screen (Not Detect) Urine Fentanyl Screen (Not Detect) Acetaminophen (<30) mcg/mL Ur Barbiturates Screen (Not Detect) Ur Phencyclidine Scrn (Not Detect) Ur Amphetamines Screen (Not Detect) U Benzodiazepines Scrn (Not Detect) Urine Cocaine Screen (Not Detect) U Marijuana (THC) Screen (Not Detect) COVID-19 (KATHY) (Negative) COVID-19 Clin Com 01/07/22 Range/Units 08:49 WBC (4.8-10.8) X10*3/uL RBC (4.20-5.50) X10*6/uL Hgb (12.0-16.0) g/dl Hct (37.0-47.0) % MCV (80.0-98.0) fL MCH (27.0-33.0) pg MCHC (31.0-35.0) g/dl RDW (11.0-16.0) % Plt Count (160-400) X10*3/uL MPV (9.4-12.3) fL Immature Gran % (Auto) (0.0-0.4) % Neut % (Auto) (45-73) % Lymph % (Auto) (20-40) % [place] % (Auto) (2-11) % Eos % (Auto) (0-4) % Baso % (Auto) (0-2) % Lymph # (Auto) (1.2-4.9) X10*3/uL [place] # (Auto) (0.1-1.2) X10*3/uL Eos # (Auto) (0.0-0.4) X10*3/uL Baso # (Auto) (0.0-0.2) X10*3/uL Abs Immat Gran (auto) (0.00-0.03) X10*3/uL Absolute Neuts (auto) (2.0-8.3) x10*3/uL Absolute Nucleated RBC (0.0-0.012) X10*3/uL Nucleated RBC % (auto) (0.0-0.2) /100WBC Smear Tech's Comments PT (9.9-13.0) SEC INR (0.9-1.1) D-Dimer High Sensitivty NG/ML VBG pH (7.32-7.43) VBG pCO2 mmHg VBG pO2 mmHg VBG HCO3 (22-26) mmol/L VBG O2 Saturation % VBG Base Excess mmol/L Sodium (135-145) mmol/L Potassium (3.3-5.1) mmol/L Chloride (96-108) mmol/L Carbon Dioxide (22-29) mmol/L Anion Gap (12-20) BUN (9-16) mg/dL Creatinine (0.5-1.4) mg/dL Estim Creat Clear Calc Estimated GFR POC Glucose (60-115) mg/dL Random Glucose (60-115) mg/dL Calcium (8.4-10.2) mg/dL Total Bilirubin (0.0-1.0) mg/dL Direct Bilirubin (0.0-0.5) mg/dL AST (5-31) U/L ALT (0-31) U/L Alkaline Phosphatase (39-117) U/L Troponin I High Sens 7.4 (<3.5-17.0) ng/L B-Natriuretic Peptide 252 H (<100) pg/mL Total Protein (6.5-8.0) g/dL Albumin (3.5-5.0) g/dL TSH (0.32-4.0) uIU/mL Urine Color Urine Appearance Urine pH (5.0-8.0) Ur Specific [place] (1.005-1.025) Urine Protein (NEG-TRACE) MG/DL Urine Glucose (UA) (NEG) MG/DL Urine Ketones (NEG) MG/DL Urine Blood (NEG) Urine Nitrite (NEG) Ur Leukocyte Esterase (NEG) Urine RBC (0) /HPF Urine WBC (0-4) /HPF Ur Squamous Epith Cells /LPF Urine Bacteria /LPF Hyaline Casts /LPF Urine Mucus /LPF Salicylates (15-30) mg/dL Urine Opiates Screen (Not Detect) Urine Fentanyl Screen (Not Detect) Acetaminophen (<30) mcg/mL Ur Barbiturates Screen (Not Detect) Ur Phencyclidine Scrn (Not Detect) Ur Amphetamines Screen (Not Detect) U Benzodiazepines Scrn (Not Detect) Urine Cocaine Screen (Not Detect) U Marijuana (THC) Screen (Not Detect) COVID-19 (KATHY) (Negative) COVID-19 Clin Com Discharge Plan Discharge Clinical Impression: Anxiety, Olfactory hallucination, Acute UTI, LEYDA on CPAP, Acute dyspnea, Tracheomalacia, Stridor Congestive heart failure Qualifiers: Heart failure type: systolic Heart failure chronicity: acute on chronic Qualified Code(s): I50.23 - Acute on chronic systolic (congestive) heart failure Patient Disposition: [facility] Transfer Details: [facility] Instructions: Urinary Tract Infection in Older Adults (ED) Prescriptions: New cefuroxime axetil 250 mg tablet 250 mg PO BID 7 Days Qty: 14 0RF No Action diltiazem HCl 240 mg Capsule,Extended Release 24hr 240 mg PO DAILY Qty: 0 0RF Protocol: Hold for SBP/HR < HOLD for SBP < : 90 HOLD for HR < : 60 metoprolol succinate 50 mg tablet extended release 24 hr 1 tab PO DAILY 0RF spironolactone 25 mg tablet 0.5 tab PO QAM 0RF tamsulosin 0.4 mg capsule 1 cap PO DAILY 0RF lisinopril 5 mg tablet 1 tab PO DAILY 0RF gabapentin 100 mg capsule 1 cap PO BEDTIME 0RF letrozole 2.5 mg tablet 1 tab PO DAILY 0RF rosuvastatin 40 mg tablet 1 tab PO DAILY 0RF acetaminophen 325 mg tablet 2 tab PO Q6H PRN (Reason: Headache) 0RF Combivent Respimat 20-100 mcg/actuation mist 1 puff inhalation QID 0RF olanzapine 10 mg tablet 1 tab PO BEDTIME 0RF sertraline 25 mg tablet 1 tab PO DAILY 0RF warfarin [Jantoven] 5 mg tablet 1.25 mg PO DAILY 0RF warfarin [Jantoven] 5 mg tablet 2.5 mg PO DAILY 0RF Referrals: [facility] [Provider Group] Peyman Boss MD [Primary Care Provider] - Interventions: Acute Care Transfer Worksheet (ED) Last Done: 01/07/22 10:56 Discharge Date/Time: 01/07/22 10:56
--- NOTE | 2022-01-06 23:50 | PC.NURSE ---
pt crying, increased WOB, grunting, and c/o of abd pain. MD Dickey made aware
[2022-01-06] MEDS: Furosemide 20 MG/2 ML VIAL IVPUSH (23:59)
[2022-01-06] MEDS: LORazepam 2 MG/ML VIAL 1 MG IVPUSH (23:59)
[2022-01-07] VITALS (18 sets, daily range): BP systolic 128–154; BP diastolic 82–96; PULSE 84–145; RESP 15–100; O2SAT 93–123
--- NOTE | 2022-01-07 | ECG_ITS ---
Test Reason : TACHY Blood Pressure : / mmHG Vent. Rate : 128 BPM Atrial Rate : 000 BPM P-R Int : 000 ms QRS Dur : 094 ms QT Int : 344 ms P-R-T Axes : 000 000 054 degrees QTc Int : 502 ms Atrial fibrillation with rapid ventricular response Nonspecific ST and T wave abnormality Abnormal ECG When compared with ECG of 06-JAN-2022 00:07, No significant change was found Referred By: Gallito Cherry Electronically Signed By:ANGELLA JOSE
--- NOTE | 2022-01-07 00:06 | PC.NURSE ---
pt continues agonal breathing, 100% on 4lpm
--- NOTE | 2022-01-07 00:20 | PC.NURSE ---
after ativan administration. pt has decreased audible stridor, and a decreased work of breathing
[2022-01-07 00:39] LABS: D Dimer High Sensitivity < 150 NG/ML
--- NOTE | 2022-01-07 01:25 | PC.NURSE ---
pt restless, pulling off cardiac leads, removing BP cuff, agitated. pt noted to be incontinent of urine. almendarez placed per PA, pt tolerated well, pt given incontinent care, and repositioned by RN and instrumentation technologist
--- NOTE | 2022-01-07 02:50 | PC.NURSE ---
pt agitated, removing clothes, removing cardiac leads, BP cuff, spo2 monitor. pt reassured, repositioned, reapplied to roller embosser and is resting in bed comfortably at this time, given an additional blanket. agonal audible breathing continues
--- NOTE | 2022-01-07 04:06 | PC.NURSE ---
pt has audible stridor, mouth breathing, although no wheezing noted. pt repositioned between semi fowlers and supine and breathing remains the same.
[2022-01-07] MEDS: dilTIAZem HCL 50 MG/10 ML VIAL 20 MG IVPUSH (04:36)
--- NOTE | 2022-01-07 04:57 | PC.NURSE ---
pt had an episode of tachycardia, continued stridor breathing. Pt HR increased to 145, MD bear notified. stat ekg obtained, RT called. poor pleth SPo2 read 80%, pt placed on nonrebreather, pt sat noted to be 100%. Nonrebreather removed, CPAP trialed again, pt more tolerable to cpap on 4lpm.. SPo2 at 100% CPAP O2 decreased to 2lpm and pt able to maintain sats. 20mg diltiazem administered to decrease HR. shortly after pt trying to climb OOB. reassured/redirected by this RN and radiologic technologist, pt reminded she had a almendarez catheter, able to relax and is resting in bed at this time in semi fowlers position
[2022-01-07] MEDS: Albuterol/Iprat 2.5/0.5MG 3 ML AMPUL.NEB INHALE (07:56)
[2022-01-07] MEDS: Racepinephrine HCL 0.5 ML VIAL.NEB INHALE (08:04)
[2022-01-07] MEDS: dilTIAZem HCL 125 MG in 0.9 % Sodium Chloride 100 ML 10 MG IVCONT (08:11)
[2022-01-07] MEDS: Furosemide 20 MG/2 ML VIAL IVPUSH (08:28)
--- NOTE | 2022-01-07 08:29 | PC.NURSE ---
pt unable to tolerate po at this time
[2022-01-07 08:55] LABS: Basophils Percent Auto 0.1 % (0-2); Hematocrit 33.8 % (37.0-47.0); Hemoglobin 9.9 g/dl (12.0-16.0); Imm Gran Abs Auto 0.07 X10*3/uL (0.00-0.03); Imm Gran Pct Auto 0.8 % (0.0-0.4); Lymphocytes Absolute Auto 0.4 X10*3/uL (1.2-4.9); MANUAL DIFF FLAG SCAN; Mean Corpuscular HGB Conc 29.3 g/dl (31.0-35.0); Mean Corpuscular Hemoglobin 28.9 pg (27.0-33.0); Mean Corpuscular Volume 98.5 fL (80.0-98.0); Mean Platelet Volume 9.6 fL (9.4-12.3); Monocytes Absolute Auto 0.2 X10*3/uL (0.1-1.2); Monocytes Percent Auto 1.9 % (2-11); Neutrophils Absolute Auto 8.5 x10*3/uL (2.0-8.3); Neutrophils Percent Auto 93.2 % (45-73); Platelet Count 204 X10*3/uL (160-400); Red Blood Count 3.43 X10*6/uL (4.20-5.50); Red Cell Distribution Width 14.6 % (11.0-16.0); SCAN SMEAR FLAG 1; White Blood Count 9.1 X10*3/uL (4.8-10.8)
--- NOTE | 2022-01-07 08:56 | PC.NURSE ---
CALL PLACED TO [facility] @ DR BROUSSARD REQUEST @ THIS TIME
[2022-01-07 09:03] LABS: INTERNATIONAL NORM RATIO 2.8 (0.9-1.1); Prothrombin Time 32.2 SEC (9.9-13.0)
--- NOTE | 2022-01-07 09:13 | PC.NURSE ---
@[id number] TIMOTHY FROM [facility] CALLS US BACK ASKS FOR A FACE SHEET TO BE FAXED TO [phone] AND THEN ASKS TO SPEAK WITH DR SONNY BROUSSARD TAKES OVER CALL RIGHT AWAY TO FIND OUT THIS PT IS ACCEPTED A TRANSFER JOHN CALLED FOR DISC TO BE BURNED
[2022-01-07 09:14] LABS: SLIDE REVIEW VERIFIED
[2022-01-07 09:16] LABS: Alanine Aminotransferase 57 U/L (0-31); Albumin Level 4.1 g/dL (3.5-5.0); Alkaline Phosphatase 125 U/L (39-117); Anion Gap 16 (12-20); Aspartate Amino Transferase 38 U/L (5-31); B Type Natriuretic Peptide 252 pg/mL (<100); Bilirubin Direct 0.4 mg/dL (0.0-0.5); Bilirubin Total 0.8 mg/dL (0.0-1.0); Blood Urea Nitrogen 22 mg/dL (9-16); Calcium 10.3 mg/dL (8.4-10.2); Carbon Dioxide 25 mmol/L (22-29); Chloride 106 mmol/L (96-108); Creatinine Clr Calc Pharmacy 54.6; Estimated Glomerular Filt Rate > 60; Glucose Random 212 mg/dL (60-115); Potassium 4.8 mmol/L (3.3-5.1); Sodium 142 mmol/L (135-145); Total Protein 8.2 g/dL (6.5-8.0); Troponin-I High Sensitivity 7.4 ng/L (<3.5-17.0)
--- NOTE | 2022-01-07 09:38 | PC.NURSE ---
@[id number] [facility] CALLED FOR ROOM ASSIGNMENT TIMOTHY BRIONES AND STATES SHE [facility] @ [address]
--- NOTE | 2022-01-07 09:39 | PC.NURSE ---
emi from [facility] took report on pt
[2022-01-07] MEDS: LORazepam 2 MG/ML VIAL 1 MG IVPUSH (10:52)
== END 2022-01-07 10:56 | disposition short-term general hospital (02) ==
PROVIDERS: Emergency Medicine; Physician Assistant; Emergency Provider Internal Medicine; PCP Internal Medicine
DX: I50.23 Acute on chronic systolic (congestive) heart failure (principal); N39.0 Urinary tract infection, site not specified; R44.2 Other hallucinations; R06.00 Dyspnea, unspecified; R06.02 Shortness of breath; J39.8 Other specified diseases of upper respiratory tract; R06.1 Stridor; G47.33 Obstructive sleep apnea (adult) (pediatric); I48.91 Unspecified atrial fibrillation; Z20.822 Contact with and (suspected) exposure to COVID-19; Z79.01 Long term (current) use of anticoagulants; Z79.02 Long term (current) use of antithrombotics/antiplatelets; Z79.899 Other long term (current) drug therapy
CPT/HCPCS: 36415; 70360; 70490; 71046; 71250; 74176; 80048; 80076; 80143; 80179; 80307; 81001; 82803; 82947; 83880; 84443; 84484; 85025; 85379; 85610; 87635; 93005; 94640; 94660; 96365; 96366; 96375; 96376; 99285; J1100; J1940; J2060

== ENCOUNTER 2022-02-10 14:32 | Outpatient (REF) | payer MEDICARE, MEDICAID, SELFPAY ==
[2022-02-10 15:01] LABS: MANUAL DIFF FLAG NO
[2022-02-10 15:07] LABS: Basophils Percent Auto 0.5 % (0-2); Eosinophils Absolute Auto 0.1 X10*3/uL (0.0-0.4); Eosinophils Percent Auto 2.4 % (0-4); Hematocrit 34.5 % (37.0-47.0); Hemoglobin 10.3 g/dl (12.0-16.0); Imm Gran Abs Auto 0.02 X10*3/uL (0.00-0.03); Imm Gran Pct Auto 0.4 % (0.0-0.4); Lymphocytes Absolute Auto 1.2 X10*3/uL (1.2-4.9); Lymphocytes Percent Auto 22.1 % (20-40); Mean Corpuscular HGB Conc 29.9 g/dl (31.0-35.0); Mean Corpuscular Hemoglobin 28.4 pg (27.0-33.0); Mean Platelet Volume 10.7 fL (9.4-12.3); Monocytes Absolute Auto 0.6 X10*3/uL (0.1-1.2); Monocytes Percent Auto 10.2 % (2-11); Neutrophils Absolute Auto 3.5 x10*3/uL (2.0-8.3); Neutrophils Percent Auto 64.4 % (45-73); Platelet Count 201 X10*3/uL (160-400); Red Blood Count 3.63 X10*6/uL (4.20-5.50); Red Cell Distribution Width 14.1 % (11.0-16.0); Venous Blood Gas Refer to POC result; White Blood Count 5.5 X10*3/uL (4.8-10.8)
[2022-02-10 15:09] LABS: VBG Base Excess 5.5 mmol/L; VBG HCO3 32 mmol/L (22-26); VBG pCO2 55 mmHg; VBG pO2 29 mmHg
[2022-02-10 15:10] LABS: VBG pH 7.37 (7.32-7.43)
== END 2022-02-10 14:33 | disposition home or self-care (01) ==
LOC: HO.LAB 14:32
PROVIDERS: Visit Provider Internal Medicine
DX: J44.9 Chronic obstructive pulmonary disease, unspecified (principal); R06.00 Dyspnea, unspecified; G47.33 Obstructive sleep apnea (adult) (pediatric); Z99.89 Dependence on other enabling machines and devices
CPT/HCPCS: 36415; 82803; 85025; 99212

== ENCOUNTER → 2022-03-31 20:45 | Outpatient (REF) | payer MEDICARE, MEDICAID, SELFPAY | LOC: HO.SL 20:45 | PROVIDERS: PCP Internal Medicine; Visit Provider Internal Medicine | DX: G47.33 Obstructive sleep apnea (adult) (pediatric) (principal); R06.83 Snoring; Z79.899 Other long term (current) drug therapy | CPT/HCPCS: 95811 ==

== ENCOUNTER → 2022-04-14 10:44 | Outpatient (BNVA) | payer MEDICARE, MEDICAID, SELFPAY | PROVIDERS: PCP Internal Medicine; Visit Provider Internal Medicine | DX: G47.33 Obstructive sleep apnea (adult) (pediatric) (principal); J44.9 Chronic obstructive pulmonary disease, unspecified; Z99.89 Dependence on other enabling machines and devices | CPT/HCPCS: 99212 ==

== ENCOUNTER 2022-08-06 10:32 | Outpatient (RCR) | payer MEDICARE, MEDICAID, SELFPAY | END 2022-09-30 16:00 | disposition home or self-care (01) | LOC: HO.WCC 10:32 | PROVIDERS: PCP Internal Medicine; Visit Provider Physician Assistant | DX: I87.312 Chronic venous hypertension (idiopathic) with ulcer of left lower extremity (principal); L97.822 Non-pressure chronic ulcer of other part of left lower leg with fat layer exposed; I87.2 Venous insufficiency (chronic) (peripheral); Z79.899 Other long term (current) drug therapy | CPT/HCPCS: 11042; 11045; 15271; 97597; 99212; Q4187 ==

== ENCOUNTER → 2022-09-08 10:51 | Outpatient (BNVA) | payer MEDICARE, MEDICAID, SELFPAY | PROVIDERS: PCP Internal Medicine; Visit Provider Internal Medicine | DX: G47.33 Obstructive sleep apnea (adult) (pediatric) (principal); J44.9 Chronic obstructive pulmonary disease, unspecified; Z79.899 Other long term (current) drug therapy; Z99.89 Dependence on other enabling machines and devices | CPT/HCPCS: 99212 ==

== ENCOUNTER 2022-09-29 10:14 | Outpatient (REF) | payer MEDICARE, MEDICAID, SELFPAY ==
--- NOTE | ~2022-09-29 | US_ITS ---
EXAMINATION: US LOWER EXTREMITY (REFLUX EXAM), LEFT CLINICAL INDICATION: Chronic venous insufficiency with left lower extremity venous ulceration COMPARISON: None. TECHNIQUE: Color flow triplex imaging and compression Doppler was performed to evaluate both the deep and the superficial systems of the left lower extremity. To evaluate the superficial system, the examination was performed in the upright position. Color-flow Doppler ultrasound and compression ultrasound were utilized. In addition, maneuvers were utilized to demonstrate reflux. FINDINGS: 1. DEEP VENOUS DOPPLER ULTRASOUND: Common Femoral Vein: Compressible, normal respiratory variation and augmented flow. Femoral Vein: Compressible, normal color flow and augmentation. Popliteal Vein: Compressible, normal augmentation. Deep Reflux: There is deep venous reflux in the common femoral vein measuring 580 ms and in the popliteal vein measuring 1670 ms There is no evidence of a Randall's cyst. There is an enlarged lymph node in the left groin measuring 1.4 x 1.3 x 6.7 cm 2. SUPERFICIAL VENOUS DOPPLER ULTRASOUND: GREAT SAPHENOUS VEIN: Saphenofemoral Junction: 1.2 cm; Reflux: 0 ms Proximal Thigh: 0.9 cm; Reflux: 1360 ms Mid Thigh: 0.8 cm; Reflux: 1346 ms Above Knee: 0.7 cm; Reflux: 2092 ms At Knee: 0.6 cm; Reflux: 1044 ms Below Knee: 0.3 cm; Reflux: 1764 ms Mid Calf: 0.3 cm; Reflux: 1428 ms Ankle: 0.4 cm; Reflux: 1672 ms DUPLICATED MEDIAL GREAT SAPHENOUS VEIN: Diameter: None Imaged Reflux: NA DUPLICATED LATERAL GREAT SAPHENOUS VEIN: Diameter: 0.4 cm Reflux: None SMALL SAPHENOUS VEIN: Proximal: 0.4 cm; Reflux: 0 ms Distal: 0.2 cm; Reflux: 0 ms VEIN OF GIACOMINI: None Imaged. PERFORATORS: Location: Proximal thigh and distal calf to the great saphenous vein and midcalf to the small saphenous vein Size: 0.2 to 0.3 cm Reflux: None VARICOSITIES: Location: Multiple varicosities throughout the mid and distal thigh, knee Size: Ranging in size from 0.4-0.7 cm Reflux: 644 ms to 2004 ms US/US venous duplex LE LT IMPRESSION: Severe reflux throughout the left great saphenous vein. There are multiple varicose veins throughout the left lower extremity as described above
== END 2022-09-29 10:15 | disposition home or self-care (01) ==
LOC: HO.US 10:14
PROVIDERS: PCP Internal Medicine; Visit Provider Physician Assistant
DX: I87.2 Venous insufficiency (chronic) (peripheral) (principal); I83.021 Varicose veins of left lower extremity with ulcer of thigh; L97.822 Non-pressure chronic ulcer of other part of left lower leg with fat layer exposed
CPT/HCPCS: 93971

== ENCOUNTER 2022-12-09 04:25 | Emergency (ER) | payer MEDICARE, MEDICAID, SELFPAY ==
--- NOTE | ~2022-12-09 | XR_ITS ---
EXAMINATION: XR CHEST CLINICAL INFORMATION: Cough COMPARISON: 01/06/2022 TECHNIQUE: Frontal view of the chest was obtained. FINDINGS: Lung volumes are symmetric. No focal consolidation is seen. No evidence of pneumothorax, pleural effusion, or overt pulmonary edema. Cardiac silhouette remains enlarged. Calcification is present at the aortic arch. Suture anchors noted at the right humeral head. Degenerative changes are noted in the spine. XR/XR chest 1V IMPRESSION: No focal consolidation. Cardiac silhouette remains enlarged.
[2022-12-09 04:33] VITALS: BP 151/54; PULSE 85; RESP 20; TEMP 36.6; O2SAT 100; BMI 31.2
--- NOTE | 2022-12-09 04:38 | ECG_ITS ---
Test Reason : ANXIETY Blood Pressure : / mmHG Vent. Rate : 066 BPM Atrial Rate : 000 BPM P-R Int : 000 ms QRS Dur : 096 ms QT Int : 398 ms P-R-T Axes : 000 016 007 degrees QTc Int : 417 ms Atrial fibrillation Minimal voltage criteria for LVH, may be normal variant ( [place] product ) Abnormal ECG When compared to the previous EKG of 07 jan 2022, ventricular rate decreased. Referred By: Marietta Mead Electronically Signed By:ANGELLA JOSE
--- NOTE | 2022-12-09 04:40 | ED.GENADULT ---
HPI - General Adult General Chief complaint: Anxiety Stated complaint: Anxiety Time Seen by Provider: 12/09/22 04:45 Source: patient, EMS and diagnostic imaging manager Mode of arrival: EMS History of Present Illness HPI narrative: 77-year-old female who lives alone and is brought in by EMS when she called due to being scared the some was inside of her house. Patient has a history of atrial fibrillation on Coumadin, history of sleep apnea, PVD, COPD and hypertension as well as diabetes. Patient denies fever, chills, shortness of breath, or chest pain. Patient states that she feels unsafe in her current living conditions. Related Data Home Medications Medication Instructions Recorded Confirmed acetaminophen 325 mg tablet 2 tab PO Q6H PRN Headache 01/05/22 01/05/22 gabapentin 100 mg capsule 1 cap PO BEDTIME 01/05/22 01/05/22 letrozole 2.5 mg tablet 1 tab PO DAILY 01/05/22 01/05/22 metoprolol succinate 50 mg 1 tab PO DAILY 01/05/22 01/05/22 tablet,extended release 24 hr rosuvastatin 40 mg tablet 1 tab PO DAILY 01/05/22 01/05/22 spironolactone 25 mg tablet 0.5 tab PO QAM 01/05/22 01/05/22 tamsulosin 0.4 mg capsule 1 cap PO DAILY 01/05/22 01/05/22 apixaban 2.5 mg tablet (Eliquis) 2.5 mg PO BID 02/10/22 digoxin 125 mcg (0.125 mg) tablet mcg PO 04/14/22 Previous Rx's Medication Instructions Recorded ipratropium 20 mcg-albuterol 100 1 puff inhalation QID copd 30 days 09/08/22 mcg/actuation mist for inhalation #4 grams (Combivent Respimat) Allergies Allergy/AdvReac Type Severity Reaction Status Date / Time No Known Allergies Allergy Mild N/A Verified 09/08/22 11:07 Review of Systems Review of Systems: Pertinent positives and negatives as stated in HPI [facility] Past Medical History Source: nursing notes reviewed Medical History Anxiety Atrial fibrillation COPD (chronic obstructive pulmonary disease) Depression LEYDA on CPAP Social History Social History Household Members: None Housing: Apartment Do you presently have visiting nurse or other home services: No Alcohol intake: never Patient Tobacco Use Status: Never used Tobacco Advance Directives: No Advance Directives Information Provided: Yes service: No Current occupational status: disabled Physical Exam ED Vital Signs: Vital Signs - 24 hr 12/09/22 04:33 12/09/22 05:42 Temperature 98 F 97.7 F Pulse Rate 85 79 Respiratory Rate 20 18 Blood Pressure 151/54 H 129/59 L Pulse Oximetry 100 96 Oxygen Delivery Method Room Air Room Air BMI result Body Mass Index 31.2 VITAL SIGNS: Reviewed. GENERAL: Well developed, well nourished, appears anxious. HEAD: Normocephalic/atraumatic EYES: PERRLA, EOMI EARS: Ext canals without abnormality NOSE: Nares patent bilateral OROPHARYNX: no oral lesions noted, posterior pharynx clear NECK: Supple, no adenopathy LUNGS: Normal breath sounds. No adventitious sounds or accessory muscle use. SpO2<100> CARDIOVASCULAR: Regular rate and rhythm without noted murmurs, no JVD or lower extremity edema. ABDOMEN: Soft, non-tender, non-distended with bowel sounds. MUSCULOSKELETAL: No tenderness, deformities, or effusions noted on gross inspection. EXTREMITIES: No cyanosis, clubbing or edema, but has chronic skin changes and thickening consistent with a component of venous stasis. SKIN: Inspection of the skin reveals no rashes NEUROLOGIC: Alert and oriented x 3. Strength and sensation to light touch were grossly intact x 4. Medical Decision Making Medical Decision Making MDM Narrative: 77-year-old female with history and clinical presentation suggestive of being startled and currently anxious. On review of prior documentation this seems to be an ongoing concern for the patient. She otherwise appears to be hemodynamically stable no overt evidence of exacerbation of underlying medical conditions. Reviewed all investigations and my interpretation is that patient has chronically stable lab work and I suspect that she became startled which activated some of her and her underlying anxiety. With contacted her son who states that he will swing by. On contacting the son again, he states he will be in at 10:00. Signed out to Dr Yañez Differential Diagnosis Please see the discussion above Lab Data Please see the discussion above 12/09/22 04:48 12/09/22 04:49 Labs: Lab Results 12/09/22 12/09/22 12/09/22 Range/Units 04:46 04:48 04:48 WBC 6.4 (4.8-10.8) X10*3/uL RBC 4.19 L (4.20-5.50) X10*6/uL Hgb 11.6 L (12.0-16.0) g/dl Hct 38.8 (37.0-47.0) % MCV 92.6 (80.0-98.0) fL MCH 27.7 (27.0-33.0) pg MCHC 29.9 L (31.0-35.0) g/dl RDW 14.3 (11.0-16.0) % Plt Count 200 (160-400) X10*3/uL MPV 10.6 (9.4-12.3) fL Immature Gran % (Auto) 0.3 (0.0-0.4) % Neut % (Auto) 61.9 (45-73) % Lymph % (Auto) 24.1 (20-40) % [place] % (Auto) 10.4 (2-11) % Eos % (Auto) 2.8 (0-4) % Baso % (Auto) 0.5 (0-2) % Lymph # (Auto) 1.5 (1.2-4.9) X10*3/uL [place] # (Auto) 0.7 (0.1-1.2) X10*3/uL Eos # (Auto) 0.2 (0.0-0.4) X10*3/uL Baso # (Auto) 0.0 (0.0-0.2) X10*3/uL Abs Immat Gran (auto) 0.02 (0.00-0.03) X10*3/uL Absolute Neuts (auto) 3.9 (2.0-8.3) x10*3/uL Absolute Nucleated RBC 0.000 (0.0-0.012) X10*3/uL Nucleated RBC % (auto) 0.0 (0.0-0.2) /100WBC PT (10.0-13.1) SEC INR (0.9-1.1) VBG pH (7.32-7.43) VBG pCO2 mmHg VBG pO2 mmHg VBG HCO3 (22-26) mmol/L VBG O2 Saturation % VBG Base Excess mmol/L Sodium (135-145) mmol/L Potassium (3.3-5.1) mmol/L Chloride (96-108) mmol/L Carbon Dioxide (22-29) mmol/L Anion Gap (12-20) BUN (9-16) mg/dL Creatinine (0.5-1.4) mg/dL Estim Creat Clear Calc Estimated GFR POC Glucose 124 H (60-115) mg/dL Random Glucose (60-115) mg/dL Calcium (8.4-10.2) mg/dL Total Bilirubin (0.0-1.0) mg/dL AST (5-31) U/L ALT (0-31) U/L Alkaline Phosphatase (39-117) U/L Troponin I High Sens (<3.5-17.0) ng/L B-Natriuretic Peptide 219 H (<100) pg/mL Total Protein (6.5-8.0) g/dL Albumin (3.5-5.0) g/dL 12/09/22 12/09/22 12/09/22 Range/Units 04:49 04:49 04:49 WBC (4.8-10.8) X10*3/uL RBC (4.20-5.50) X10*6/uL Hgb (12.0-16.0) g/dl Hct (37.0-47.0) % MCV (80.0-98.0) fL MCH (27.0-33.0) pg MCHC (31.0-35.0) g/dl RDW (11.0-16.0) % Plt Count (160-400) X10*3/uL MPV (9.4-12.3) fL Immature Gran % (Auto) (0.0-0.4) % Neut % (Auto) (45-73) % Lymph % (Auto) (20-40) % [place] % (Auto) (2-11) % Eos % (Auto) (0-4) % Baso % (Auto) (0-2) % Lymph # (Auto) (1.2-4.9) X10*3/uL [place] # (Auto) (0.1-1.2) X10*3/uL Eos # (Auto) (0.0-0.4) X10*3/uL Baso # (Auto) (0.0-0.2) X10*3/uL Abs Immat Gran (auto) (0.00-0.03) X10*3/uL Absolute Neuts (auto) (2.0-8.3) x10*3/uL Absolute Nucleated RBC (0.0-0.012) X10*3/uL Nucleated RBC % (auto) (0.0-0.2) /100WBC PT 16.2 H (10.0-13.1) SEC INR 1.4 H (0.9-1.1) VBG pH (7.32-7.43) VBG pCO2 mmHg VBG pO2 mmHg VBG HCO3 (22-26) mmol/L VBG O2 Saturation % VBG Base Excess mmol/L Sodium 142 (135-145) mmol/L Potassium 4.1 (3.3-5.1) mmol/L Chloride 107 (96-108) mmol/L Carbon Dioxide 25 (22-29) mmol/L Anion Gap 14 (12-20) BUN 22 H (9-16) mg/dL Creatinine 1.02 (0.5-1.4) mg/dL Estim Creat Clear Calc 47.3 Estimated GFR 52 POC Glucose (60-115) mg/dL Random Glucose 144 H (60-115) mg/dL Calcium 9.6 D (8.4-10.2) mg/dL Total Bilirubin 0.8 (0.0-1.0) mg/dL AST 21 (5-31) U/L ALT 13 (0-31) U/L Alkaline Phosphatase 158 H (39-117) U/L Troponin I High Sens 6.1 (<3.5-17.0) ng/L B-Natriuretic Peptide (<100) pg/mL Total Protein 7.1 (6.5-8.0) g/dL Albumin 3.9 (3.5-5.0) g/dL 12/09/22 Range/Units 04:51 WBC (4.8-10.8) X10*3/uL RBC (4.20-5.50) X10*6/uL Hgb (12.0-16.0) g/dl Hct (37.0-47.0) % MCV (80.0-98.0) fL MCH (27.0-33.0) pg MCHC (31.0-35.0) g/dl RDW (11.0-16.0) % Plt Count (160-400) X10*3/uL MPV (9.4-12.3) fL Immature Gran % (Auto) (0.0-0.4) % Neut % (Auto) (45-73) % Lymph % (Auto) (20-40) % [place] % (Auto) (2-11) % Eos % (Auto) (0-4) % Baso % (Auto) (0-2) % Lymph # (Auto) (1.2-4.9) X10*3/uL [place] # (Auto) (0.1-1.2) X10*3/uL Eos # (Auto) (0.0-0.4) X10*3/uL Baso # (Auto) (0.0-0.2) X10*3/uL Abs Immat Gran (auto) (0.00-0.03) X10*3/uL Absolute Neuts (auto) (2.0-8.3) x10*3/uL Absolute Nucleated RBC (0.0-0.012) X10*3/uL Nucleated RBC % (auto) (0.0-0.2) /100WBC PT (10.0-13.1) SEC INR (0.9-1.1) VBG pH 7.43 (7.32-7.43) VBG pCO2 48 mmHg VBG pO2 50 mmHg VBG HCO3 32 H (22-26) mmol/L VBG O2 Saturation 80.0 % VBG Base Excess 7.0 mmol/L Sodium (135-145) mmol/L Potassium (3.3-5.1) mmol/L Chloride (96-108) mmol/L Carbon Dioxide (22-29) mmol/L Anion Gap (12-20) BUN (9-16) mg/dL Creatinine (0.5-1.4) mg/dL Estim Creat Clear Calc Estimated GFR POC Glucose (60-115) mg/dL Random Glucose (60-115) mg/dL Calcium (8.4-10.2) mg/dL Total Bilirubin (0.0-1.0) mg/dL AST (5-31) U/L ALT (0-31) U/L Alkaline Phosphatase (39-117) U/L Troponin I High Sens (<3.5-17.0) ng/L B-Natriuretic Peptide (<100) pg/mL Total Protein (6.5-8.0) g/dL Albumin (3.5-5.0) g/dL Independent Interpretation I performed an independent interpretation of an: EKG Interpretation: Atrial fibrillation, HR-66, no STEMI, QRS/QTC is within normal limits. Radiology Impression Radiologist Impression: My interpretation is in agreement with radiology's impression of the imaging studies. External Record Review External record reviewed: Inpatient record, Outpatient record and Prior outpatient labs Chronic Conditions Patient?s care impacted by: Diabetes and Hypertension Discharge Plan Discharge Clinical Impression: OLEG (generalized anxiety disorder) Patient Disposition: Still a Patient Instructions: Generalized Anxiety Disorder (ED) Additional Instructions: 1. Reanudar todos los medicamentos caseros seg?n lo prescrito. 2. Андрей un seguimiento con hoang proveedor de atenci?n primaria en los pr?ximos 1 a 2 d?as para scar reevaluaci?n. Regrese a la yolanda de emergencias si los s?ntomas empeoran. 1. Resume all home medications as prescribed. 2. Follow-up with your primary care provider in the next 1-2 days for re-evaluation. Return to the ER for any worsening symptoms. Prescriptions: No Action metoprolol succinate 50 mg tablet extended release 24 hr 1 tab PO DAILY spironolactone 25 mg tablet 0.5 tab PO QAM tamsulosin 0.4 mg capsule 1 cap PO DAILY gabapentin 100 mg capsule 1 cap PO BEDTIME letrozole 2.5 mg tablet 1 tab PO DAILY rosuvastatin 40 mg tablet 1 tab PO DAILY acetaminophen 325 mg tablet 2 tab PO Q6H PRN (Reason: Headache) Combivent Respimat 20-100 mcg/actuation mist 1 puff inhalation QID 30 Days Qty: 4 4RF Eliquis 2.5 mg tablet 2.5 mg PO BID digoxin 125 mcg (0.125 mg) tablet PO Print Language: Amharic
[2022-12-09 04:54] LABS: Basophils Percent Auto 0.5 % (0-2); Eosinophils Absolute Auto 0.2 X10*3/uL (0.0-0.4); Eosinophils Percent Auto 2.8 % (0-4); Hematocrit 38.8 % (37.0-47.0); Hemoglobin 11.6 g/dl (12.0-16.0); Imm Gran Abs Auto 0.02 X10*3/uL (0.00-0.03); Imm Gran Pct Auto 0.3 % (0.0-0.4); Lymphocytes Absolute Auto 1.5 X10*3/uL (1.2-4.9); Lymphocytes Percent Auto 24.1 % (20-40); MANUAL DIFF FLAG NO; Mean Corpuscular HGB Conc 29.9 g/dl (31.0-35.0); Mean Corpuscular Hemoglobin 27.7 pg (27.0-33.0); Mean Corpuscular Volume 92.6 fL (80.0-98.0); Mean Platelet Volume 10.6 fL (9.4-12.3); Monocytes Absolute Auto 0.7 X10*3/uL (0.1-1.2); Monocytes Percent Auto 10.4 % (2-11); Neutrophils Absolute Auto 3.9 x10*3/uL (2.0-8.3); Neutrophils Percent Auto 61.9 % (45-73); Platelet Count 200 X10*3/uL (160-400); Red Blood Count 4.19 X10*6/uL (4.20-5.50); Red Cell Distribution Width 14.3 % (11.0-16.0); White Blood Count 6.4 X10*3/uL (4.8-10.8)
[2022-12-09 04:55] LABS: Glucose, Whole Blood 124 mg/dL (60-115)
[2022-12-09 04:55] LABS: Venous Blood Gas Refer to POC result
[2022-12-09 04:58] LABS: VBG HCO3 32 mmol/L (22-26); VBG pCO2 48 mmHg; VBG pH 7.43 (7.32-7.43); VBG pO2 50 mmHg
[2022-12-09 05:00] LABS: INTERNATIONAL NORM RATIO 1.4 (0.9-1.1); Prothrombin Time 16.2 SEC (10.0-13.1)
[2022-12-09 05:11] LABS: Alanine Aminotransferase 13 U/L (0-31); Albumin Level 3.9 g/dL (3.5-5.0); Alkaline Phosphatase 158 U/L (39-117); Anion Gap 14 (12-20); Aspartate Amino Transferase 21 U/L (5-31); Bilirubin Total 0.8 mg/dL (0.0-1.0); Blood Urea Nitrogen 22 mg/dL (9-16); Calcium 9.6 mg/dL (8.4-10.2); Carbon Dioxide 25 mmol/L (22-29); Chloride 107 mmol/L (96-108); Creatinine Clr Calc Pharmacy 47.3; Estimated Glomerular Filt Rate 52; Glucose Random 144 mg/dL (60-115); Potassium 4.1 mmol/L (3.3-5.1); Sodium 142 mmol/L (135-145); Total Protein 7.1 g/dL (6.5-8.0)
[2022-12-09 05:14] LABS: B Type Natriuretic Peptide 219 pg/mL (<100)
[2022-12-09 05:20] LABS: Troponin-I High Sensitivity 6.1 ng/L (<3.5-17.0)
--- NOTE | 2022-12-09 05:28 | PC.NURSE ---
Attempted to call daughter at this time. No answer.
--- NOTE | 2022-12-09 05:35 | PC.NURSE ---
Spoke with pts son Abdulaziz and notified him of pts status in ED, states he will swing by to visit pt.
[2022-12-09 05:42] VITALS: BP 129/59; PULSE 79; RESP 18; TEMP 36.5; O2SAT 96
--- NOTE | 2022-12-09 06:21 | PC.NURSE ---
Pts son Abdulaziz states he cant get here until 10am.
[2022-12-09 08:36] VITALS: BP 129/62; PULSE 61; RESP 17; TEMP 36.4; O2SAT 98
[2022-12-09 10:23] VITALS: BP 147/73; PULSE 66; RESP 20; TEMP 36.6; O2SAT 97
--- NOTE | 2022-12-09 11:33 | MHC.CM.ED ---
Received case management consult from Dr Yañez. Patient was originally going home but stated she didn't feel safe due to seeing a tall dark man . Family discussed it and feels patient can safely return home. No CM services needed at this time.
== END 2022-12-09 11:39 | disposition home or self-care (01) ==
PROVIDERS: Student in an Organized Health Care Education/Training Program; Emergency Provider Emergency Medicine
DX: F41.1 Generalized anxiety disorder (principal); E11.9 Type 2 diabetes mellitus without complications; I11.0 Hypertensive heart disease with heart failure; I50.9 Heart failure, unspecified; I48.91 Unspecified atrial fibrillation; G47.33 Obstructive sleep apnea (adult) (pediatric); Z99.89 Dependence on other enabling machines and devices; Z79.01 Long term (current) use of anticoagulants; Z79.02 Long term (current) use of antithrombotics/antiplatelets
CPT/HCPCS: 36415; 71045; 80053; 82803; 82947; 83880; 84484; 85025; 85610; 93005; 99284; 99285

== ENCOUNTER 2023-01-17 08:11 | Emergency (ER) | payer MEDICARE, MEDICAID, SELFPAY ==
--- NOTE | ~2023-01-17 | XR_ITS ---
EXAMINATION: XR CHEST CLINICAL INFORMATION: Chest pain COMPARISON: Chest x-ray 12/09/2022 TECHNIQUE: Frontal view of the chest was obtained. FINDINGS: The lungs are well-expanded and clear acute pneumonic process. Some heterogeneous appearance of lung parenchyma is stable compared to previous exam 12/09/2022. Heart size and pulmonary vascularity is normal. There is moderate spondylosis dorsal spine. No aggressive lytic or sclerotic process seen. XR/XR chest 1V IMPRESSION: Unremarkable chest exam. No change from 12/09/2022
--- NOTE | 2023-01-17 08:16 | ECG_ITS ---
Test Reason : CHEST PAIN Blood Pressure : / mmHG Vent. Rate : 063 BPM Atrial Rate : 000 BPM P-R Int : 000 ms QRS Dur : 096 ms QT Int : 410 ms P-R-T Axes : 000 000 -08 degrees QTc Int : 419 ms Atrial fibrillation Left ventricular hypertrophy with repolarization abnormality ( [place] product ) Abnormal ECG When compared with ECG of 09-DEC-2022 04:58, No significant change was found Referred By: Adriana Espinoza Electronically Signed By:INOCENCIA SHULTZ MD
--- NOTE | 2023-01-17 08:17 | ED_ITS ---
HPI - Chest Pain General Chief Complaint: General Medical Stated Complaint: chest pains, per ems Source: patient, EMS and old records reviewed Mode of arrival: EMS Limitations: language barrier History of Present Illness HPI narrative: 77-year-old Nauruan-speaking female with history of AFib on Eliquis, CHF, COPD, LEYDA on CPAP, PVD, HLD, generalized anxiety disorder, GERD, hx breast cancer who presents to the ER via EMS from home for evaluation of SOB and poking left sided chest pains that started when she woke up this morning and realized her CPAP machine was not on. She states she woke up with difficulty breathing with a mask not being and place. She states she then developed poking sensation in the left side of her chest. It does not radiate. It is mild. Her breathing is better after calming down. She denies any cough, fever, chills, nausea, vomiting, abdominal pain. She is compliant with all her medications except she did not take them this morning. MD complaint: chest pain Pertinent past history: other (COPD and CHF) Onset (ago): hour(s) Timing of current episode: episodic Prior episodes: Yes Onset: awoke with symptoms Pain location: left chest Pain radiation: none Severity: mild Quality: tightness and sharp Relieving factors: rest Exacerbating factors: stress Treatment prior to arrival: none Risk Factors Coronary artery disease risk factors: hyperlipidemia and hypertension Thoracic aortic dissection risk factors: none Related Data Home Medications Medication Instructions Recorded Confirmed acetaminophen 325 mg tablet 2 tab PO Q6H PRN Headache 01/05/22 01/05/22 gabapentin 100 mg capsule 1 cap PO BEDTIME 01/05/22 01/05/22 letrozole 2.5 mg tablet 1 tab PO DAILY 01/05/22 01/05/22 metoprolol succinate 50 mg 1 tab PO DAILY 01/05/22 01/05/22 tablet,extended release 24 hr rosuvastatin 40 mg tablet 1 tab PO DAILY 01/05/22 01/05/22 spironolactone 25 mg tablet 0.5 tab PO QAM 01/05/22 01/05/22 tamsulosin 0.4 mg capsule 1 cap PO DAILY 01/05/22 01/05/22 apixaban 2.5 mg tablet (Eliquis) 2.5 mg PO BID 02/10/22 digoxin 125 mcg (0.125 mg) tablet mcg PO 04/14/22 Previous Rx's Medication Instructions Recorded ipratropium 20 mcg-albuterol 100 1 puff inhalation QID copd 30 days 09/08/22 mcg/actuation mist for inhalation #4 grams (Combivent Respimat) Allergies Allergy/AdvReac Type Severity Reaction Status Date / Time No Known Allergies Allergy Mild N/A Verified 09/08/22 11:07 Review of Systems Review of Systems: Yes all other systems are reviewed and are negative [facility] Past Medical History Medical History Anxiety Atrial fibrillation COPD (chronic obstructive pulmonary disease) Depression LEYDA on CPAP Social History Social History Household Members: None Housing: Apartment Do you presently have visiting nurse or other home services: No Alcohol intake: never Patient Tobacco Use Status: Never used Tobacco Advance Directives: No Advance Directives Information Provided: Yes service: No Current occupational status: disabled Physical Exam Vital Signs: Vital Signs: Last Vital Signs Temp 98.3 F 01/17/23 08:33 Pulse 71 01/17/23 10:58 Resp 19 01/17/23 10:58 BP 171/63 H 01/17/23 10:58 Pulse Ox 99 01/17/23 10:58 O2 Del Method Room Air 01/17/23 10:58 BMI result Body Mass Index 30.6 Appearance: Alert. Oriented X3. No acute distress. Head: normocephalic, atraumatic. Eyes: Pupils equal, round and reactive to light. ENT: Pharynx normal. No tonsillar swelling or exudate. Neck: Normal inspection. Neck supple. CVS: Irregularly irregular, heart rate in the 70s. Pulses normal. Respiratory: No respiratory distress. Breath sounds normal. Abdomen: Soft and nontender. +BS x4 Skin: Skin warm and dry. Normal skin color. Normal skin turgor. No rashes. Extremities: 1+ lower extremity edema with hyperpigmentation and chronic venous stasis changes of her lower legs bilaterally.. No joint swelling. Neuro/psych: Oriented X 3. No motor deficit. No sensory deficit. CN II-XII intact. Normal speech and cognition. Medical Decision Making Medical Decision Making MDM Narrative: 77-year-old Nauruan-speaking female with history of AFib on Eliquis, CHF, COPD, LEYDA on CPAP, PVD, HLD, generalized anxiety disorder, GERD, hx breast cancer who presents to the ER via EMS from home for evaluation of SOB and poking left sided chest pains that started when she woke up this morning and realized her CPAP machine was not on. The patient's vital signs are stable and her chest pain is atypical of ACS. It is mild and poking in nature. Her EKG did not show any ischemic changes. She had 2 negative troponins while in the emergency department. She is feeling be tter. Her symptoms most likely due to acute anxiety. Stable for discharge home with outpatient follow-up as needed. Differential Diagnosis Differential Diagnoses: The differential diagnosis associated with the presentation includes Acute anxiety, acute CHF exacerbation, acute COPD exacerbation, ACS, pneumonia, Admission/Observation Consideration of admission/observation: Escalation of care including admission/observation considered 77-year-old female with multiple medical comorbidities presenting to the ER for evaluation of shortness of breath and chest pain. She was able to be ACS rule out with unremarkable EKG and negative troponin x2. Comfortable discharge home. Lab Data MDM Lab Attestation statement: I reviewed the patient's lab results. 01/17/23 08:42 01/17/23 08:42 Labs: Lab Results 01/17/23 01/17/23 01/17/23 Range/Units 08:42 08:42 08:42 WBC 4.8 (4.8-10.8) X10*3/uL RBC 4.15 L (4.20-5.50) X10*6/uL Hgb 11.5 L (12.0-16.0) g/dl Hct 39.0 (37.0-47.0) % MCV 94.0 (80.0-98.0) fL MCH 27.7 (27.0-33.0) pg MCHC 29.5 L (31.0-35.0) g/dl RDW 14.6 (11.0-16.0) % Plt Count 188 (160-400) X10*3/uL MPV 10.4 (9.4-12.3) fL Immature Gran % (Auto) 0.2 (0.0-0.4) % Neut % (Auto) 58.9 (45-73) % Lymph % (Auto) 26.5 (20-40) % [place] % (Auto) 10.9 (2-11) % Eos % (Auto) 2.9 (0-4) % Baso % (Auto) 0.6 (0-2) % Lymph # (Auto) 1.3 (1.2-4.9) X10*3/uL [place] # (Auto) 0.5 (0.1-1.2) X10*3/uL Eos # (Auto) 0.1 (0.0-0.4) X10*3/uL Baso # (Auto) 0.0 (0.0-0.2) X10*3/uL Abs Immat Gran (auto) 0.01 (0.00-0.03) X10*3/uL Absolute Neuts (auto) 2.8 (2.0-8.3) x10*3/uL Absolute Nucleated RBC 0.000 (0.0-0.012) X10*3/uL Nucleated RBC % (auto) 0.0 (0.0-0.2) /100WBC Sodium 141 (135-145) mmol/L Potassium 5.2 H D (3.3-5.1) mmol/L Chloride 107 (96-108) mmol/L Carbon Dioxide 27 (22-29) mmol/L Anion Gap 12 (12-20) BUN 18 H (9-16) mg/dL Creatinine 0.85 (0.5-1.4) mg/dL Estim Creat Clear Calc 56.1 Estimated GFR > 60 Random Glucose 134 H (60-115) mg/dL Calcium 10.4 H D (8.4-10.2) mg/dL Magnesium 2.1 (1.6-2.6) mg/dL Total Bilirubin 0.9 (0.0-1.0) mg/dL Direct Bilirubin 0.3 (0.0-0.5) mg/dL AST 21 (5-31) U/L ALT 10 (0-31) U/L Alkaline Phosphatase 130 H (39-117) U/L Troponin I High Sens 5.8 (<3.5-17.0) ng/L B-Natriuretic Peptide (<100) pg/mL Total Protein 7.1 (6.5-8.0) g/dL Albumin 3.8 (3.5-5.0) g/dL Digoxin (0.8-2.0) ng/mL 01/17/23 01/17/23 01/17/23 Range/Units 08:42 08:42 11:33 WBC (4.8-10.8) X10*3/uL RBC (4.20-5.50) X10*6/uL Hgb (12.0-16.0) g/dl Hct (37.0-47.0) % MCV (80.0-98.0) fL MCH (27.0-33.0) pg MCHC (31.0-35.0) g/dl RDW (11.0-16.0) % Plt Count (160-400) X10*3/uL MPV (9.4-12.3) fL Immature Gran % (Auto) (0.0-0.4) % Neut % (Auto) (45-73) % Lymph % (Auto) (20-40) % [place] % (Auto) (2-11) % Eos % (Auto) (0-4) % Baso % (Auto) (0-2) % Lymph # (Auto) (1.2-4.9) X10*3/uL [place] # (Auto) (0.1-1.2) X10*3/uL Eos # (Auto) (0.0-0.4) X10*3/uL Baso # (Auto) (0.0-0.2) X10*3/uL Abs Immat Gran (auto) (0.00-0.03) X10*3/uL Absolute Neuts (auto) (2.0-8.3) x10*3/uL Absolute Nucleated RBC (0.0-0.012) X10*3/uL Nucleated RBC % (auto) (0.0-0.2) /100WBC Sodium (135-145) mmol/L Potassium (3.3-5.1) mmol/L Chloride (96-108) mmol/L Carbon Dioxide (22-29) mmol/L Anion Gap (12-20) BUN (9-16) mg/dL Creatinine (0.5-1.4) mg/dL Estim Creat Clear Calc Estimated GFR Random Glucose (60-115) mg/dL Calcium (8.4-10.2) mg/dL Magnesium (1.6-2.6) mg/dL Total Bilirubin (0.0-1.0) mg/dL Direct Bilirubin (0.0-0.5) mg/dL AST (5-31) U/L ALT (0-31) U/L Alkaline Phosphatase (39-117) U/L Troponin I High Sens 6.6 (<3.5-17.0) ng/L B-Natriuretic Peptide 175 H (<100) pg/mL Total Protein (6.5-8.0) g/dL Albumin (3.5-5.0) g/dL Digoxin 0.5 L (0.8-2.0) ng/mL Independent Interpretation I performed an independent interpretation of an: EKG and Plain X-Ray Interpretation: EKG with atrial fibrillation, heart rate 62 beats per minute, no ST segment elevations or depressions. Artifact present in V6. CXR - no focal pneumonia or large pleural effusion appreciated, agrees radio logist read Radiology Impression Discussion of test interpretation with radiology: I have reviewed the radiologist's reading. Radiologist Impression: XR/XR chest 1V IMPRESSION: Unremarkable chest exam. No change from 12/09/2022 Independent Historian Clinical information obtained from an independent historian. History obtained from or confirmed by: EMS External Record Review External record reviewed: Office record, Outpatient record, Prior outpatient labs and Prior outpatient radiology Chronic Conditions Patient?s care impacted by: Hypertension and Other (AFib and anxiety) Scores Heart Score History: -0- slightly suspicious ECG: -0- normal Age: -2- > or = 65 Risk factory: -1- 1 or 2 risk factors Troponin: -0- < or = normal limit Score: 3 Risk: 1.7% Critical Care Time Critical Care Time Critical Care Time: No Discharge Plan Discharge Clinical Impression: Atypical chest pain, OLEG (generalized anxiety disorder) Patient Disposition: Home, Self-Care Instructions: Noncardiac Chest Pain (ED), Anxiety (ED) Additional Instructions: Your lab workup, chest x-ray, EKG were all unremarkable today. Continue to use your CPAP machine at night as prescribed. Follow-up with your doctors as needed. If you develop new or worsening symptoms call 911 or come back to the ER for further evaluation. Hoang an?lisis de laboratorio, radiograf?a de t?rax, electrocardiograma no tuvieron nada especial hoy. Contin?e usando hoang m?quina CPAP por la noche seg?n lo prescrito. Seguimiento con abdifatah m?dicos seg?n sea necesario. Si desarrolla s?ntomas nuevos o que empeoran, llame al 911 o regrese a la yolanda de emergencias para scar evaluaci?n adicional. Prescriptions: No Action metoprolol succinate 50 mg tablet extended release 24 hr 1 tab PO DAILY spironolactone 25 mg tablet 0.5 tab PO QAM tamsulosin 0.4 mg capsule 1 cap PO DAILY gabapentin 100 mg capsule 1 cap PO BEDTIME letrozole 2.5 mg tablet 1 tab PO DAILY rosuvastatin 40 mg tablet 1 tab PO DAILY acetaminophen 325 mg tablet 2 tab PO Q6H PRN (Reason: Headache) Combivent Respimat 20-100 mcg/actuation mist 1 puff inhalation QID 30 Days Qty: 4 4RF Eliquis 2.5 mg tablet 2.5 mg PO BID digoxin 125 mcg (0.125 mg) tablet PO Referrals: Peyman Boss MD [Primary Care Provider] - Print Language: Nauruan
[2023-01-17 08:33] VITALS: BP 154/64; PULSE 61; RESP 16; TEMP 36.8; O2SAT 100; BMI 30.6
--- NOTE | 2023-01-17 08:33 | MHC.EDTECH ---
EKG completed and signed by
--- NOTE | 2023-01-17 08:45 | MHC.EDTECH ---
Labs collected and sent
[2023-01-17 08:46] LABS: MANUAL DIFF FLAG NO
[2023-01-17 08:48] LABS: Basophils Percent Auto 0.6 % (0-2); Eosinophils Absolute Auto 0.1 X10*3/uL (0.0-0.4); Eosinophils Percent Auto 2.9 % (0-4); Hemoglobin 11.5 g/dl (12.0-16.0); Imm Gran Abs Auto 0.01 X10*3/uL (0.00-0.03); Imm Gran Pct Auto 0.2 % (0.0-0.4); Lymphocytes Absolute Auto 1.3 X10*3/uL (1.2-4.9); Lymphocytes Percent Auto 26.5 % (20-40); Mean Corpuscular HGB Conc 29.5 g/dl (31.0-35.0); Mean Corpuscular Hemoglobin 27.7 pg (27.0-33.0); Mean Platelet Volume 10.4 fL (9.4-12.3); Monocytes Absolute Auto 0.5 X10*3/uL (0.1-1.2); Monocytes Percent Auto 10.9 % (2-11); Neutrophils Absolute Auto 2.8 x10*3/uL (2.0-8.3); Neutrophils Percent Auto 58.9 % (45-73); Platelet Count 188 X10*3/uL (160-400); Red Blood Count 4.15 X10*6/uL (4.20-5.50); Red Cell Distribution Width 14.6 % (11.0-16.0); White Blood Count 4.8 X10*3/uL (4.8-10.8)
[2023-01-17 09:14] LABS: Alanine Aminotransferase 10 U/L (0-31); Albumin Level 3.8 g/dL (3.5-5.0); Alkaline Phosphatase 130 U/L (39-117); Anion Gap 12 (12-20); Aspartate Amino Transferase 21 U/L (5-31); Bilirubin Direct 0.3 mg/dL (0.0-0.5); Bilirubin Total 0.9 mg/dL (0.0-1.0); Blood Urea Nitrogen 18 mg/dL (9-16); Calcium 10.4 mg/dL (8.4-10.2); Carbon Dioxide 27 mmol/L (22-29); Chloride 107 mmol/L (96-108); Creatinine Clr Calc Pharmacy 56.1; Digoxin 0.5 ng/mL (0.8-2.0); Estimated Glomerular Filt Rate > 60; Glucose Random 134 mg/dL (60-115); Magnesium 2.1 mg/dL (1.6-2.6); Potassium 5.2 mmol/L (3.3-5.1); Sodium 141 mmol/L (135-145); Total Protein 7.1 g/dL (6.5-8.0)
[2023-01-17 09:17] LABS: B Type Natriuretic Peptide 175 pg/mL (<100)
[2023-01-17 09:21] LABS: Troponin-I High Sensitivity 5.8 ng/L (<3.5-17.0)
--- NOTE | 2023-01-17 09:55 | PC.NURSE ---
alert and oriented, vss. pt resting comfortably on stretcher, daughter given update on pt will pick up operator upon discharge
[2023-01-17 10:58] VITALS: BP 171/63; PULSE 71; RESP 19; O2SAT 99
--- NOTE | 2023-01-17 11:34 | MHC.EDTECH ---
Labs collected and sent to lab
[2023-01-17 11:56] LABS: Troponin-I High Sensitivity 6.6 ng/L (<3.5-17.0)
== END 2023-01-17 12:58 | disposition home or self-care (01) ==
PROVIDERS: Physician Assistant; Emergency Provider Emergency Medicine; PCP Internal Medicine
DX: R07.89 Other chest pain (principal); I48.91 Unspecified atrial fibrillation; I10 Essential (primary) hypertension; F41.1 Generalized anxiety disorder; F43.0 Acute stress reaction; R06.02 Shortness of breath; Z79.01 Long term (current) use of anticoagulants; Z79.899 Other long term (current) drug therapy
CPT/HCPCS: 36415; 71045; 80048; 80076; 80162; 83735; 83880; 84484; 85025; 93005; 99283; 99285

== ENCOUNTER 2023-03-16 10:30 | Outpatient (AMB) | payer MEDICARE, MEDICAID, SELFPAY ==
--- NOTE | 2023-03-16 10:40 | A.OFFVIS_ITS ---
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 Required: No Allergies No Known Allergies Allergy (Mild, Verified 03/16/23 11:03) N/A Medication List - Last Reconciled 03/16/23 by Dayan Gomez MD acetaminophen 2 tabs PO Q6H PRN apixaban (Eliquis) 5 mg PO BID CPAP (CPAP Machine/Device) As directed digoxin mcg PO fluticasone propionate 50 mcg/actuation 1 spray intranasal DAILY furosemide 20 mg PO DAILY gabapentin 1 cap PO BEDTIME ipratropium-albuterol 20-100 mcg/actuation (Combivent Respimat) 1 puff inhalation QID 30 days letrozole 1 tab PO DAILY losartan 25 mg PO DAILY metoprolol succinate ER 200 mg PO DAILY rosuvastatin 1 tab PO DAILY spironolactone 0.5 tabs PO QAM tamsulosin 1 cap PO DAILY Do you need a note to return to daycare/school/sports/work: No HPI COPD HPI Details THIS 77 YEARS OLD VERY PLEASANT FEMALE IS HERE FOR PULMONARY FOLLOW-UP AFTER 6 MONTHS. FOR COPD IS CONCERNED IT HAS BEEN VERY STABLE WITHOUT ANY ACUTE EXACERBATIONS. SHE DOES HAVE INTERMITTENT COUGH AND SOME WHEEZING ON A DAILY BASES AND USES COMBIVENT RESPIMAT 1 INHALATION ONCE OR TWICE A DAY. ON SOME DAYS SHE MAY NEED UP TO 3 TO 4 TIMES A DAY. FOR HER OBSTRUCTIVE SLEEP APNEA SHE USES CPAP VERY REGULARLY AND SLEEPS WELL. SHE HAS NO ISSUES WITH THE USE OF CPAP AND HAS BEEN FULLY COMPLIANT. SHE HAS MILD NASAL CONGESTION ONCE IN A WHILE AND USES FLONASE NEEDED. [facility] Medical History (Updated 03/16/23 @ 11:11 by Dayan Gomez MD) Allergic rhinitis Anxiety Atrial fibrillation COPD (chronic obstructive pulmonary disease) Depression LEYDA on CPAP Social History Household Members: None Housing: Apartment Do you presently have visiting nurse or other home services: No Alcohol intake: never Patient Tobacco Use Status: Never used Tobacco service: No Current occupational status: disabled Review of Systems Const All systems reviewed & are unremarkable except as noted in HPI and below Eyes Reports no additional complaints ENT Reports no additional complaints Card Denies chest pain, Denies irregular heart rhythm and Denies leg edema Resp Reports as per HPI GI Reports constipation Reports no additional complaints Musc Reports myalgias (Mild aches and pains in the knees and back) Skin/Breast Reports system reviewed and no additional complaints, except as documented Neuro Reports no additional complaints Psych Reports depression (Mild, controlled) Physical Exam Const General: comfortable (VERY SLOW IN WALKING AND TALKING), no acute distress, alert and awake Orientation/consciousness: patient oriented x3 HEENT Head: Yes normal to inspection General nose exam: No nasal polyps present and No nasal discharge present Face and sinus: Yes sinuses nontender Mouth: oropharynx normal Throat: Yes posterior oropharynx normal Eyes General: appearance normal, both eyes and all related structures Neck Neck: Yes normal visual inspection, Yes no lymphadenopathy, Yes trachea midline and Yes no JVD Thyroid: Thyroid normal Chest Chest palpation & inspection: normal inspection of the chest, normal palpation of entire chest wall and no tenderness Resp Other: Percussion note resonant, breath sounds are equal on both sides slightly distant with prolonged expiratory phase . No crepitations or wheezes are heard. Cardio Palpation: normal PMI Rate: regular rate Rhythm: regular rhythm Heart sounds: no gallops and no murmurs GI Palpation (GI): Soft to palpation, nontender, No hepatosplenomegaly present and no masses Auscultation: normal bowel sounds Back/Spine/Pelvis Thoracic/Lumbar Spine: thoracic and lumbar spine normal to inspection and thoraco-lumbar ROM limited Skin General skin exam: no rashes or lesions noted Neuro General: patient oriented x3, No gait normal (Slow and unsteady, uses cane) and no focal motor deficits Cranial nerves: Yes CN's II-XII intact bilaterally Extrem General: Yes normal to inspection, No no joint enlargement (Mum small enlargement of the knees), Yes no clubbing, cyanosis or edema and Yes no calf tenderness Psych Appearance: grossly normal Speech and movement: Normal speech and movement present Assessment & Plan Assessment & Plan (1) LEYDA on CPAP: Comment: Known case of obstructive sleep apnea for the past many years, has done very well with CPAP usage. Has had new polysomnogram study. She needs to continue treatment with CPAP at night. SETTINGS: FULL FACE MASK OF MEDIUM SIZE( A FIT 20 ) PRESSURE 14 CM. DOES NOT NEED ANY O2. Code(s): G47.33 - Obstructive sleep apnea (adult) (pediatric); Z99.89 - Dependence on other enabling machines and devices (2) COPD (chronic obstructive pulmonary disease): Comment: Patient has mild to moderate COPD for many years but it has remained very quiet and stable. TX: Continue Combivent Respimat 1 inhalation tid and Q 6 hours p.r.n Venous BGs on 12/09/22 pCO2 48 Code(s): J44.9 - Chronic obstructive pulmonary disease, unspecified (3) Dyspnea on exertion: Comment: Her increased dyspnea on exertion seems to be secondary to increased deconditioning, COPD, cardiac condition and also Mild anemia. 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 Code(s): R06.00 - Dyspnea, unspecified (4) Allergic rhinitis: Comment: Chronic mild intermittent nasal congestion, controlled. Tx: Flonase 2 spray each nostril daily but only p.r.n. Code(s): J30.9 - Allergic rhinitis, unspecified Coding Level of Care Code Est Pt Level 4 (63618) Diagnoses LEYDA on CPAP G47.33; Z99.89 COPD (chronic obstructive pulmonary disease) J44.9 Dyspnea on exertion R06.00 Allergic rhinitis J30.9
[2023-03-16 10:50] VITALS: BP 128/70; PULSE 71; O2SAT 100; BMI 31.8
== END 2023-03-16 11:05 | disposition home or self-care (01) ==
PROVIDERS: PCP Internal Medicine; Visit Provider Internal Medicine
DX: G47.33 Obstructive sleep apnea (adult) (pediatric) (principal); Z99.89 Dependence on other enabling machines and devices; J44.9 Chronic obstructive pulmonary disease, unspecified; R06.00 Dyspnea, unspecified; J30.9 Allergic rhinitis, unspecified
CPT/HCPCS: 99214

== ENCOUNTER → 2023-03-16 10:30 | Outpatient (BNVA) | payer MEDICARE, MEDICAID, SELFPAY | PROVIDERS: PCP Internal Medicine; Visit Provider Internal Medicine | DX: J44.9 Chronic obstructive pulmonary disease, unspecified (principal); J30.9 Allergic rhinitis, unspecified; R06.00 Dyspnea, unspecified; G47.33 Obstructive sleep apnea (adult) (pediatric); Z99.89 Dependence on other enabling machines and devices | CPT/HCPCS: 99212 ==

== ENCOUNTER 2023-09-22 10:21 | Outpatient (AMB) | payer MEDICARE, MEDICAID, SELFPAY ==
[2023-09-22 10:35] VITALS: BP 130/72; PULSE 57; O2SAT 99; BMI 29.6
--- NOTE | 2023-09-22 10:35 | A.OFFVIS_ITS ---
Intake Vital Signs 09/22/23 10:35 Height 5 ft 2 in Weight 162 lb 0.636 oz BMI 29.6 BP 130/72 Blood Pressure Location Lt brachial Position Sitting Pulse 57 Pulse Source Pulse Oximeter Pulse Oximetry (%) 99 Oxygen Delivery Method Room Air Intake Visit Reasons: COPD Intake Note: pt is here for follow up and states she is doing well. Adult Neuropsychologist Required: No Allergies No Known Allergies Allergy (Mild, Verified 09/22/23 10:50) N/A Medication List - Last Reconciled 09/22/23 by Dayan Gomez MD acetaminophen 2 tabs PO Q6H PRN apixaban (Eliquis) 5 mg PO BID CPAP (CPAP Machine/Device) As directed digoxin mcg PO fluticasone propionate 50 mcg/actuation 1 spray intranasal DAILY furosemide 20 mg PO DAILY gabapentin 1 cap PO BEDTIME ipratropium-albuterol 20-100 mcg/actuation (Combivent Respimat) 1 puff inhalation QID 30 days latanoprost 0.005% drps ophthalmic (eye) letrozole 1 tab PO DAILY losartan 25 mg PO DAILY metoprolol succinate ER 200 mg PO DAILY potassium chloride ER mEq PO rosuvastatin 1 tab PO DAILY spironolactone 12.5 mg PO QAM tamsulosin 1 cap PO DAILY Do you need a note to return to daycare/school/sports/work: No HPI COPD HPI Details THIS PATIENT IS 78 YEARS OLD FEMALE, WITH MULTIPLE MEDICAL PROBLEMS INCLUDING CHRONIC OBSTRUCTIVE PULMONARY DISEASE AND ALLERGIC RHINITIS. SHE IS DOING VERY WELL WITH HER CURRENT MEDICAL REGIMEN. SHE HAS ONLY OCCASIONAL NASAL CONGESTION BUT MOSTLY CONTROLLED WITH USE OF FLONASE. CHRONIC OBSTRUCTIVE PULMONARY DISEASE HAS REMAINED STABLE WITHOUT ANY ACUTE EXACERBATION. SHE IS A KNOWN CASE OF OBSTRUCTIVE SLEEP APNEA WHICH IS BEING TREATED WITH CPAP EVERY NIGHT AND SHE HAS BEEN VERY COMPLIANT. SHE DENIES ANY ISSUES WITH THE MASK OR CPAP UNIT. [facility] Medical History Allergic rhinitis Atrial fibrillation LEYDA on CPAP COPD (chronic obstructive pulmonary disease) Anxiety Depression Social History Household Members: None Housing: Apartment Do you presently have visiting nurse or other home services: No Alcohol intake: never Patient Tobacco Use Status: Never used Tobacco service: No Current occupational status: disabled Review of Systems Const All systems reviewed & are unremarkable except as noted in HPI and below Eyes Reports no additional complaints ENT Reports no additional complaints Card Denies chest pain, Denies irregular heart rhythm and Denies leg edema Resp Reports as per HPI GI Reports constipation Reports no additional complaints Musc Reports myalgias (Mild aches and pains in the knees and back) Skin/Breast Reports system reviewed and no additional complaints, except as documented Neuro Reports no additional complaints Psych Reports depression (Mild, controlled) Physical Exam Vital Signs: Last Vital Signs Pulse 57 09/22/23 10:35 BP 130/72 09/22/23 10:35 Pulse Ox 99 09/22/23 10:35 Oxygen Delivery Method Room Air 09/22/23 10:35 BMI result Body Mass Index 29.6 Const General: comfortable (VERY SLOW IN WALKING AND TALKING), no acute distress, alert and awake Orientation/consciousness: patient oriented x3 HEENT Head: Yes normal to inspection General nose exam: No nasal polyps present and No nasal discharge present Face and sinus: Yes sinuses nontender Mouth: oropharynx normal Throat: Yes posterior oropharynx normal Eyes General: appearance normal, both eyes and all related structures Neck Neck: Yes normal visual inspection, Yes no lymphadenopathy, Yes trachea midline and Yes no JVD Thyroid: Thyroid normal Chest Chest palpation & inspection: normal inspection of the chest, normal palpation of entire chest wall and no tenderness Resp Other: Percussion note resonant, breath sounds are equal on both sides slightly distant with prolonged expiratory phase . No crepitations or wheezes are heard. Cardio Palpation: normal PMI Rate: regular rate Rhythm: regular rhythm Heart sounds: no gallops and no murmurs GI Palpation (GI): Soft to palpation, nontender, No hepatosplenomegaly present and no masses Auscultation: normal bowel sounds Back/Spine/Pelvis Thoracic/Lumbar Spine: thoracic and lumbar spine normal to inspection and thoraco-lumbar ROM limited Skin General skin exam: no rashes or lesions noted Neuro General: patient oriented x3, No gait normal (Slow and unsteady, uses cane) and no focal motor deficits Cranial nerves: Yes CN's II-XII intact bilaterally Extrem General: Yes normal to inspection, No no joint enlargement (Mum small enlargement of the knees), Yes no clubbing, cyanosis or edema and Yes no calf tenderness Psych Appearance: grossly normal Speech and movement: Normal speech and movement present Assessment & Plan Assessment & Plan (1) COPD (chronic obstructive pulmonary disease): Comment: Patient has mild to moderate COPD for many years but it has remained very quiet and stable. Venous BGs on 12/09/22 pCO2 48 Code(s): J44.9 - Chronic obstructive pulmonary disease, unspecified Plan: TX: Continue Combivent Respimat 1 inhalation tid and Q 6 hours p.r.n (2) Allergic rhinitis: Comment: Chronic mild intermittent nasal congestion, controlled. Code(s): J30.9 - Allergic rhinitis, unspecified Plan: Tx: Flonase 2 spray each nostril daily but only p.r.n. (3) LEYDA on CPAP: Comment: Known case of obstructive sleep apnea for the past many years, has done very well with CPAP usage. Has had new polysomnogram study. She needs to continue treatment with CPAP at night. SETTINGS: FULL FACE MASK OF MEDIUM SIZE( A FIT 20 ) PRESSURE 14 CM. DOES NOT NEED ANY O2. Code(s): G47.33 - Obstructive sleep apnea (adult) (pediatric); Z99.89 - Dependence on other enabling machines and devices Plan: ADVISED TO CONTINUE USING THE CPAP EVERY NIGHT Coding Level of Care Code Est Pt Level 3 (92454) Diagnoses COPD (chronic obstructive pulmonary disease) J44.9 Allergic rhinitis J30.9 LEYDA on CPAP G47.33; Z99.89
== END 2023-09-22 10:53 | disposition home or self-care (01) ==
PROVIDERS: PCP Internal Medicine; Visit Provider Internal Medicine
DX: J44.9 Chronic obstructive pulmonary disease, unspecified (principal); J30.9 Allergic rhinitis, unspecified; G47.33 Obstructive sleep apnea (adult) (pediatric); Z99.89 Dependence on other enabling machines and devices
CPT/HCPCS: 99213

== ENCOUNTER → 2023-09-22 10:21 | Outpatient (BNVA) | payer MEDICARE, MEDICAID, SELFPAY | PROVIDERS: PCP Internal Medicine; Visit Provider Internal Medicine | DX: J44.9 Chronic obstructive pulmonary disease, unspecified (principal); J30.9 Allergic rhinitis, unspecified; G47.33 Obstructive sleep apnea (adult) (pediatric); Z99.89 Dependence on other enabling machines and devices | CPT/HCPCS: 99212 ==

== ENCOUNTER 2024-03-22 10:46 | Outpatient (AMB) | payer MEDICARE, MEDICAID, SELFPAY ==
[2024-03-22 10:54] VITALS: BP 130/58; PULSE 81; O2SAT 100; BMI 27.6
--- NOTE | 2024-03-22 10:54 | MHC.OFFVIS ---
Vital Signs 03/22/24 10:54 Height 5 ft 2 in Weight 151 lb 0.266 oz BMI 27.6 BP 130/58 L Blood Pressure Location Lt brachial Position Sitting Pulse 81 Pulse Source Pulse Oximeter Pulse Oximetry (%) 100 Oxygen Delivery Method Room Air Intake Visit Reasons: COPD Intake Note: pt is here for follow up and states she is feeling good, some phlegm due to maybe allergies, cpap is doing okay [employer] Required: No Allergies No Known Allergies Allergy (Mild, Verified 03/22/24 11:05) N/A Medication List - Last Reconciled 03/22/24 by Dayan Gomez MD acetaminophen 2 tabs PO Q6H PRN apixaban (Eliquis) 5 mg PO BID CPAP (CPAP Machine/Device) As directed digoxin mcg PO fluticasone propionate 50 mcg/actuation 1 spray intranasal DAILY furosemide 20 mg PO DAILY gabapentin 1 cap PO BEDTIME ipratropium-albuterol 20-100 mcg/actuation (Combivent Respimat) 1 puff inhalation QID 30 days latanoprost 0.005% drps ophthalmic (eye) letrozole 1 tab PO DAILY losartan 25 mg PO DAILY metoprolol succinate ER 200 mg PO DAILY potassium chloride ER mEq PO rosuvastatin 1 tab PO DAILY spironolactone 12.5 mg PO QAM tamsulosin 1 cap PO DAILY Do you need a note to return to daycare/school/sports/work: No HPI HPI COPD: Details: 78 YEARS OLD VERY PLEASANT FEMALE, COMES FOR FOLLOW-UP AFTER 6 MONTHS. SHE HAS BEEN DOING WELL, REMAINED STABLE, PRESENTS WITH MILD INTERMITTENT BOUTS OF COUGH AND MUCUS, USUALLY ON CERTAIN DAYS WHEN IT IS HOT AND HUMID. THIS GETS BETTER WITH THE USE OF SALINE SPRAY, AND USE OF FLONASE. SHE USES COMBIVENT RESPIMAT ABOUT 3 TIMES A DAY REGULARLY. SHE HAS HAD NO RESPIRATORY INFECTIONS. SHE ALSO USES CPAP FOR HER OBSTRUCTIVE SLEEP APNEA DAILY AND REGULARLY. HOWEVER DURING THE LAST MONTH SHE DID NOT USE FOR ABOUT 1 WEEK BECAUSE WAS WAITING FOR THE SUPPLIES. SLEEPS WELL. PENDING SALE TO [facility] Medical History Allergic rhinitis Atrial fibrillation LEYDA on CPAP COPD (chronic obstructive pulmonary disease) Anxiety Depression Social History Household Members: None Housing: Apartment Do you presently have visiting nurse or other home services: No Alcohol intake: never Patient Tobacco Use Status: Never used Tobacco service: No Current occupational status: disabled Review of Systems Const All systems reviewed & are unremarkable except as noted in HPI and below Eyes Reports no additional complaints ENT Reports no additional complaints Card Denies chest pain, Denies irregular heart rhythm and Denies leg edema Resp Reports as per HPI GI Reports constipation Reports no additional complaints Musc Reports myalgias (Mild aches and pains in the knees and back) Skin/Breast Reports system reviewed and no additional complaints, except as documented Neuro Reports no additional complaints Psych Reports depression (Mild, controlled) Physical Exam Vital Signs: Last Vital Signs Pulse 81 03/22/24 10:54 BP 130/58 L 03/22/24 10:54 Pulse Ox 100 03/22/24 10:54 Oxygen Delivery Method Room Air 03/22/24 10:54 BMI result Body Mass Index 27.6 Const General: comfortable (VERY SLOW IN WALKING AND TALKING), no acute distress, alert and awake Orientation/consciousness: patient oriented x3 HEENT Head: Yes normal to inspection General nose exam: No nasal polyps present and No nasal discharge present Face and sinus: Yes sinuses nontender Mouth: oropharynx normal Throat: Yes posterior oropharynx normal Eyes General: appearance normal, both eyes and all related structures Neck Neck: Yes normal visual inspection, Yes no lymphadenopathy, Yes trachea midline and Yes no JVD Thyroid: Thyroid normal Chest Chest palpation & inspection: normal inspection of the chest, normal palpation of entire chest wall and no tenderness Resp Other: Percussion note resonant, breath sounds are equal on both sides slightly distant with prolonged expiratory phase . No crepitations or wheezes are heard. Cardio Palpation: normal PMI Rate: regular rate Rhythm: regular rhythm Heart sounds: no gallops and no murmurs GI Palpation (GI): Soft to palpation, nontender, No hepatosplenomegaly present and no masses Auscultation: normal bowel sounds Back/Spine/Pelvis Thoracic/Lumbar Spine: thoracic and lumbar spine normal to inspection and thoraco-lumbar ROM limited Skin General skin exam: no rashes or lesions noted Neuro General: patient oriented x3, No gait normal (Slow and unsteady, uses cane) and no focal motor deficits Cranial nerves: Yes CN's II-XII intact bilaterally Extrem General: Yes normal to inspection, No no joint enlargement (Mum small enlargement of the knees), Yes no clubbing, cyanosis or edema and Yes no calf tenderness Psych Appearance: grossly normal Speech and movement: Normal speech and movement present Results Reviewed Results Reviewed: COMPLIANCE REPORT FOR THE LAST 30 NIGHTS IS REVIEWED. SHE USED 22/30 NIGHTS, 73% OF THE NIGHTS. AVERAGE USAGE PER NIGHT HAS BEEN MORE THAN 4 HOURS. AVERAGE PRESSURE USED IS 12.8 CM. NO RESIDUAL OBSTRUCTIVE EVENTS RECORDED Assessment & Plan Assessment & Plan (1) COPD (chronic obstructive pulmonary disease): Comment: Patient has mild to moderate COPD for many years but it has remained very quiet and stable. Venous BGs on 12/09/22 pCO2 48 Code(s): J44.9 - Chronic obstructive pulmonary disease, unspecified Category: Medical Plan: CONTINUE USING COMBIVENT RESPIMAT 1 INHALATION Q 6 HOURS WHILE AWAKE ( TID ) AND ADDITIONAL ONCE OR TWICE P.R.N. (2) LEYDA on CPAP: Comment: Known case of obstructive sleep apnea for the past many years, has done very well with CPAP usage. Has had new polysomnogram study. She needs to continue treatment with CPAP at night. Code(s): G47.33 - Obstructive sleep apnea (adult) (pediatric); Z99.89 - Dependence on other enabling machines and devices Category: Medical Plan: ADVISED TO CONTINUE USING THE CPAP EVERY NIGHT. SETTINGS: FULL FACE MASK OF MEDIUM SIZE( A FIT 20 ) PRESSURE 14 CM. DOES NOT NEED ANY O2. (3) Allergic rhinitis: Comment: Chronic mild intermittent nasal congestion, controlled. Code(s): J30.9 - Allergic rhinitis, unspecified Category: Medical Plan: USE FLONASE NASAL SPRAY 2 SPRAYS IN EACH NOSTRIL AT BEDTIME P.R.N.. ALSO MAY USE SALINE SPRAY P.R.N.. Coding Level of Care Code Est Pt Level 3 (42996) Diagnoses COPD (chronic obstructive pulmonary disease) J44.9 LYEDA on CPAP G47.33; Z99.89 Allergic rhinitis J30.9
== END 2024-03-22 11:07 | disposition home or self-care (01) ==
PROVIDERS: PCP Internal Medicine; Visit Provider Internal Medicine
DX: J44.9 Chronic obstructive pulmonary disease, unspecified (principal); G47.33 Obstructive sleep apnea (adult) (pediatric); Z99.89 Dependence on other enabling machines and devices; J30.9 Allergic rhinitis, unspecified
CPT/HCPCS: 99213

== ENCOUNTER → 2024-03-22 10:46 | Outpatient (BNVA) | payer MEDICARE, MEDICAID, SELFPAY | PROVIDERS: PCP Internal Medicine; Visit Provider Internal Medicine | DX: J44.9 Chronic obstructive pulmonary disease, unspecified (principal); J30.9 Allergic rhinitis, unspecified; G47.33 Obstructive sleep apnea (adult) (pediatric); Z99.89 Dependence on other enabling machines and devices | CPT/HCPCS: 99212 ==

== ENCOUNTER 2024-09-24 10:46 | Outpatient (AMB) | payer MEDICARE, MEDICAID, SELFPAY ==
[2024-09-24 11:03] VITALS: BP 130/82; PULSE 85; O2SAT 98; BMI 27.6
--- NOTE | 2024-09-24 11:03 | A.OFFVIS_ITS ---
Vital Signs 09/24/24 11:03 Height 5 ft 2 in Weight 151 lb 0.266 oz BMI 27.6 BP 130/82 Blood Pressure Location Lt brachial Position Sitting Pulse 85 Pulse Source Pulse Oximeter Pulse Oximetry (%) 98 Oxygen Delivery Method Room Air Intake Visit Reasons: COPD Intake Note: pt is here for follow up, and she feels good. Allergies No Known Allergies Allergy (Mild, Verified 09/24/24 11:19) N/A Medication List - Last Reconciled 09/24/24 by Dayan Gomez MD acetaminophen 2 tabs PO Q6H PRN apixaban (Eliquis) 5 mg PO BID CPAP (CPAP Machine/Device) As directed digoxin mcg PO fluticasone propionate 50 mcg/actuation 1 spray intranasal DAILY furosemide 20 mg PO DAILY gabapentin 1 cap PO BEDTIME ipratropium-albuterol 20-100 mcg/actuation (Combivent Respimat) 1 puff inhalation QID 30 days latanoprost 0.005% drps ophthalmic (eye) letrozole 1 tab PO DAILY losartan 25 mg PO DAILY metoprolol succinate ER 200 mg PO DAILY potassium chloride ER mEq PO rosuvastatin 1 tab PO DAILY spironolactone 12.5 mg PO QAM tamsulosin 1 cap PO DAILY Do you need a note to return to daycare/school/sports/work: No HPI HPI COPD: Details: This 79 years old very pleasant female is here for 6 months follow-up. Chronic obstructive pulmonary disease is staying very stable and controlled. She has mild to moderate dyspnea on walking around especially if she walks up hill, but not at rest. She has mild intermittent cough without much expectoration. She uses Combivent Respimat 1 inhalation 3 times a day. He uses CPAP regularly every night but after a few hours of sleep the mask slips off and then she does not put it in the right place. Her sleep is interrupted, and she does take short naps during the daytime. [facility]LY [facility] Medical History Allergic rhinitis Atrial fibrillation LEYDA on CPAP COPD (chronic obstructive pulmonary disease) Anxiety Depression Social History Household Members: None Housing: Apartment Do you presently have visiting nurse or other home services: No Alcohol intake: never Patient Tobacco Use Status: Never used Tobacco service: No Current occupational status: disabled Review of Systems Const All systems reviewed & are unremarkable except as noted in HPI and below Eyes Reports no additional complaints ENT Reports no additional complaints Card Denies chest pain, Denies irregular heart rhythm and Denies leg edema Resp Reports as per HPI GI Reports constipation Reports no additional complaints Musc Reports myalgias (Mild aches and pains in the knees and back) Skin/Breast Reports system reviewed and no additional complaints, except as documented Neuro Reports no additional complaints Psych Reports depression (Mild, controlled) Physical Exam Vital Signs: Last Vital Signs Pulse 85 09/24/24 11:03 BP 130/82 09/24/24 11:03 Pulse Ox 98 09/24/24 11:03 Oxygen Delivery Method Room Air 09/24/24 11:03 BMI result Body Mass Index 27.6 Const General: comfortable (VERY SLOW IN WALKING AND TALKING), no acute distress, alert and awake Orientation/consciousness: patient oriented x3 HEENT Head: Yes normal to inspection General nose exam: No nasal polyps present and No nasal discharge present Face and sinus: Yes sinuses nontender Mouth: oropharynx normal Throat: Yes posterior oropharynx normal Eyes General: appearance normal, both eyes and all related structures Neck Neck: Yes normal visual inspection, Yes no lymphadenopathy, Yes trachea midline and Yes no JVD Thyroid: Thyroid normal Chest Chest palpation & inspection: normal inspection of the chest, normal palpation of entire chest wall and no tenderness Resp Other: Percussion note resonant, breath sounds are equal on both sides slightly distant with prolonged expiratory phase . No crepitations or wheezes are heard. Cardio Palpation: normal PMI Rate: regular rate Rhythm: regular rhythm Heart sounds: no gallops and no murmurs GI Palpation (GI): Soft to palpation, nontender, No hepatosplenomegaly present and no masses Auscultation: normal bowel sounds Back/Spine/Pelvis Thoracic/Lumbar Spine: thoracic and lumbar spine normal to inspection and thoraco-lumbar ROM limited Skin General skin exam: no rashes or lesions noted Neuro General: patient oriented x3, No gait normal (Slow and unsteady, uses cane) and no focal motor deficits Cranial nerves: Yes CN's II-XII intact bilaterally Extrem General: Yes normal to inspection, No no joint enlargement (Mum small enlargement of the knees), Yes no clubbing, cyanosis or edema and Yes no calf tenderness Psych Appearance: grossly normal Speech and movement: Normal speech and movement present Results Reviewed Results Reviewed: Compliance report for the last 30 nights is reviewed, she has used 27/30 nights, 90%. The average use it per night is 2 hours 17 minutes. Residual AHI only 0.1 Assessment & Plan Assessment & Plan (1) COPD (chronic obstructive pulmonary disease): Comment: Patient has mild to moderate COPD for many years but it has remained controlled and very stable. Code(s): J44.9 - Chronic obstructive pulmonary disease, unspecified Category: Medical Plan: Continue to use Combivent Respimat 1 inhalation Q i.d. are at lease t.i.d.. Use albuterol HFA 2 puffs Q 4-6 hours only p.r.n. (2) LEYDA on CPAP: Comment: Known case of obstructive sleep apnea for the past many years, has done very well with CPAP usage. The compliance is somewhat suboptimal, as she forgets to put on the mask once she wakes up after a few hours. Code(s): G47.33 - Obstructive sleep apnea (adult) (pediatric); Z99.89 - Dependence on other enabling machines and devices Category: Medical Plan: Discussed and explained to her that she needs to use CPAP for at least 4 hours every night. If she can not use enough at night she may use CPAP for 1 or 2 hours during the daytime. (3) Allergic rhinitis: Comment: Chronic mild intermittent nasal congestion, controlled. Code(s): J30.9 - Allergic rhinitis, unspecified Category: Medical Plan: OK to use Flonase 2 spray each nostril daily Coding Level of Care Code Est Pt Level 3 (36518) Diagnoses COPD (chronic obstructive pulmonary disease) J44.9 LEYDA on CPAP G47.33; Z99.89 Allergic rhinitis J30.9
--- OUTSIDE RECORDS SUMMARY | 2024-09-24 11:39 | XMS_ITS | Clinical Summary ---
Author Organization [facility] Address [address] [place] [address] Phone Care Team Providers Care Associate Dentist Name Role Phone Peyman Boss MD Primary Care Provider [phone] Allergies No known active allergies Medications Medication Sig Dispensed Refills Start Date End Date Status apixaban (ELIQUIS) 5 mg tablet Take by mouth. Active tamsulosin (FLOMAX) 0.4 mg 24 hr capsule Take 1 capsule (0.4 mg total) by mouth. Active digoxin (LANOXIN) 125 mcg (0.125 mg) tablet Take by mouth. Active METOPROLOL SUCCINATE ORAL Take by mouth. Active gabapentin (NEURONTIN) 100 mg capsule Take 1 capsule (100 mg total) by mouth. Active spironolactone (ALDACTONE) 25 mg tablet Take 0.5 tablets (12.5 mg total) by mouth. Active sotaloL (BETAPACE) 80 mg tablet Take 80 mg by mouth 2 times daily. Active lisinopriL (PRINIVIL,ZESTRIL ) 5 mg tablet Take 5 mg by mouth daily. Active rosuvastatin (CRESTOR) 40 mg tablet Take 40 mg by mouth daily. Active gabapentin (NEURONTIN) 300 mg capsule Take 300 mg by mouth 3 times daily. Active docusate sodium (COLACE) 100 mg capsule Take 100 mg by mouth 2 times daily. Active ipratropium/albut rupinder sulfate (COMBIVENT INHL) Inhale into the lungs. Active fluticasone propionate (FLONASE) 50 mcg/actuation nasal spray 2 Sprays by Each Nare route daily. Active cholecalciferol (VITAMIN D-3) 50 mcg (2,000 unit) capsule Take by mouth. Active furosemide (LASIX) 40 mg tablet Take 40 mg by mouth 2 times daily. Active warfarin sodium (COUMADIN ORAL) Take by mouth. Activ e letrozole (FEMARA) 2.5 mg tablet TAKE ONE TABLET BY MOUTH EVERY DAY 90 tablet 3 08/27/2024 Active letrozole (FEMARA) 2.5 mg tablet Take 1 tablet (2.5 mg total) by mouth 07/06/2021 08/27/2024 Discontinued Active Problems Problem Noted Date Diagnosed Date Malignant neoplasm of overla pping sites of right breast in female, estrogen receptor positive 07/24/2024 Cardiomyopathy 06/14/2012 Overview (06/20/2024): LVEF 2008 25-30% Echo 03/2011 LVEF 50-55%, mild LVH, diastolic dysfunction, TRELL mildly dilated mild MR Thought to be afib/tachy mediated COPD (chronic obstructive pulmonary disease) DM2 (diabetes mellitus, type 2) 06/14/2012 HTN (hypertension) 06/14/2012 Hyperlipidemia with target LDL less than 70 05/23 Overview (06/20/2024): IMO update Observed sleep apnea 06/14/2012 Paroxysmal A-fib 06/14/2012 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 Encounters Date Type Department Care Team Description 08/09/2024 10:53 AM EST - 08/09/2024 11:59 PM EST Hospital [facility] [address] [phone] Malignant neoplasm of overlapping sites of right breast in female, estrogen receptor positive (CMS/HCC); Encounter for screening mammogram for malignant neoplasm of breast Discharge Disposition: Home or Self Care 07/24/2024 10:45 AM EST Office Visit [facility] Hematology Oncology [address] [place] [phone] Dhaval Francois MD Malignant neoplasm of overlapping sites of right breast in female, estrogen receptor positive (CMS/HCC) (Primary Dx); Encounter for screening mammogram for malignant neoplasm of breast from Last 3 Months Surgical History Surgery Date Site/Laterality Comments US GUIDED BREAST BIOPSY RIGHT 08/22/2020 - 08/21/2021 Ri ght Social History Tobacco Use Types Packs/Day Years Used Date Smoking Tobacco: Never Assessed Sex and Gender Information Value Date Recorded Sex Assigned at Female 07/25/2024 9:29 AM EST Gender Identity Female 07/25/2024 9:29 AM EST Sexual Orientation Straight 07/25/2024 9: 29 AM EST Job Start Date Occupation Industry Not on file Not on file Not on file Obstetrics History Para Term AB IAB SAB Ectopic Multiple Livin g Live Births 9 Last Filed Vital Signs Vital Sign Reading Time Taken Comments Blood Pressure 162/80 07/24/2024 11:16 AM EST Pulse 86 12/16/2023 11:57 AM EDT Temperature 36.7 ??C (98 ??F) 07/24/2024 11:16 AM EST Respiratory Rate - - Oxygen Saturation - - Inhaled Oxygen Concentration - - Weight 68 kg (150 lb) 07/24/2024 11:16 AM EST Height 157.5 cm (5' 2 ) 07/04/2023 11:18 AM EST Body Mass Index 27.44 07/04/2023 11:18 AM EST Plan of Treatment Upcoming Encounters Date Type Department Care Team (Late st Contact Info) Description 01/23/2025 11:15 AM EDT Office Visit [facility] Hematology Oncology [address] [place] [address] Dhaval Francois MD [address] [place] [address] Health Maintenance Due Date Last Done Comments Diabetes: Annual Foot Exam 1954 Diabetes: Annual Retina Eye Exam 1955 DTaP,Tdap,and Td Vaccines (1 - Tdap) 1963 Zoster Vaccines (1 of 2) 1963 RSV Immunization Patients 60+ Years Old (1 - 1-dose 75+ series) 2019 Pneumococcal Vaccine: 65+ Years (2 of 2 - PCV) 06/21/2020 06/21/2019 Cholesterol Screening (Lipid Panel) 07/31/2022 Depression Screening 07/31/2022 Falls Risk Assessment 07/31/2022 Medicare Annual Wellness Visit 07/31/2022 Social Influencers of Health Screening 07/31/2022 Diabetes: Annual Urine Albumin-Creatinine Ratio (uACR) 08/07/2022 Diabetes: Blood Sugar Control Test (HGBA1C) 08/07/2022 Diabetes: Annual GFR (Glomerular Filtration Rate) 01/18/2023 01/18/2022, 01/17/2022, 01/16/2022, Additional history exists Hypertension/CHF/CAD Annual BMP Blood Test 01/18/2023 01/18/2022, 01/17/2022, 01/16/2022, Additional history exists COVID-19 Vaccine () 04/22/2024 06/26/2021, 11/18/2020, 10/21/2020 Osteoporosis Screening (Bone Density Screening) 07/01/2033 07/01/2023, 04/29/2021 Influenza Vaccine Completed 06/13/2024, , 07/29/2021, Additional history exists HIB Vaccines Aged Out No longer eligi ble based on patient's age to complete this topic HPV Vaccines Aged Out No longer eligi ble based on patient's age to complete this topic Hepatitis A Vaccines Aged Out No long er eligible based on patient's age to complete this topic Hepatitis B Vaccines Aged Out No long er eligible based on patient's age to complete this topic IPV Vaccines Aged Out No longer eligi ble based on patient's age to complete this topic MMR Vaccines Aged Out No longer eligi ble based on patient's age to complete this topic Meningococcal ACWY Vaccine Aged Out N o longer eligible based on patient's age to complete this topic RSV Immunization Patients Under 20 months Aged Out No longer eligible based on patient's age to complete this topic Varicella Vaccines Aged Out No longer eligible based on patient's age to complete this topic Procedures Procedure Name Priority Date/Time Associated Diagnosis Comments MG MAMMO DIGITAL SCREENING W SACHIN BILAT Routine 08/09/2024 11:21 AM EST Malignant neoplasm of overlapping sites of right breast in female, estrogen receptor positive (CMS/HCC) Encounter for screening mammogram for malignant neoplasm of breast [facility] DEXA AXIAL SKELETON Routine 07/01/2023 8:13 AM EST Other specified disorders of bone density and structure, left thigh from Last 3 Months or Most Recently Relevant to Health Maintenance Results * MG Mammo Digital Screening w Sachin bilat (08/09/2024 11:21 AM EST) Anatomical Region Laterality Modality Breast Bilateral Mammography 08/13/2024 11:4 3 AM EST Impressions 08/13/2024 11:57 AM EST No mammographic evidence of malignancy. Postlumpectomy changes laterally in the right breast are again seen, mildly decreased. A negative mammogram in the presence of a clinically suspicious palpable abnormality does not preclude the possibility of malignancy or alter the indications for biopsy. PQRI CPT II 3342F Code 07168, 99870 PQRI 225 CPT II 7025F TISSUE DENSITY: There are scattered areas of fibroglandular density. (BI-RADS category B) IMPRESSION: Benign. BI-RADS CATEGORY: 2 - BENIGN RECOMMENDATION: Screening bilateral mammogram is recommended in 1 year. Mammo Location: [facility], [facility], [address] [place] [address] -------- FINAL REPORT -------- Dictated By: Myke Bradshaw Dictated Date: 08/13/2024 11:43 ET Assigned Physician: Myke Bradshaw Reviewed and Electronically Signed By: Myke Bradshaw Signed Date: 08/13/2024 11:57 ET Workstation ID: [id number] Transcribed By: Self Edit Transcribed Date: 08/13/2024 11:43 ET Narrative 08/13/2024 11:57 AM EST CLINICAL: The patient is a 79 years Female presenting for routine screening mammography. The patient underwent lumpectomy in 2020 for invasive ductal carcinoma of the right breast. COMPARISON: Most recently 06/30/2023 and most remotely 11/08/2018. ?? TECHNIQUE: Full-field digital mammography of the breasts bilaterally consisting of tomosynthesis in MLO and CC projection is performed in the WeVuee 2000-D unit. ??Computer aided detection utilizing the PerMicroD system was utilized. FINDINGS: The breasts are again seen to be composed of a combination of fatty and fibroglandular elements as also demonstrated on prior studies. Mild architectural distortion is present anteriorly and slightly lateral to the nipple line in the right breast, with multiple surgical clips. Distortion has mildly decreased since the prior examination. Overlying skin thickening is stable. There is no suspicious cluster of microcalcifications, mass, or new area of architectural distortion. There is no nipple retraction. Procedure Note Myke Bradshaw MD - 08/13/2024 CLINICAL: The patient is a 79 years Female presenting for routinescreening mammography. The patient underwent lumpectomy in 2020 forinvasive ductal carcinoma of the right breast. COMPARISON: Most recently 06/30/2023 and most remotely 11/08/2018. TECHNIQUE: Full-field digital mammography of the breasts bilaterallyconsisting of tomosynthesis in MLO and CC projection is performed in theAchieversographe 2000-D unit. Computer aided detection utilizing the ibeatyouystem was utilized. FINDINGS: The breasts are again seen to be composed of a combination offatty and fibroglandular elements as also demonstrated on prior studies.Mild architectural distortion is present anteriorly and slightly lateralto the nipple line in the right breast, with multiple surgical clips.Distortion has mildly decreased since the prior examination. Overlyingskin thickening is stable. There is no suspicious cluster ofmicrocalcifications, mass, or new area of architectural distortion. Thereis no nipple retraction. IMPRESSION: No mammographic evidence of malignancy. Postlumpectomy changes laterallyin the right breast are again seen, mildly decreased. A negative mammogram in the presence of a clinically suspicious palpableabnormality does not preclude the possibility of malignancy or alter theindications for biopsy. PQRI CPT II 3342F Code 19584, 97917 PQRI 225 CPT II 7025F TISSUE DENSITY: There are scattered areas of fibroglandular density.(BI-RADS category B) IMPRESSION: Benign. BI-RADS CATEGORY: 2 - BENIGN RECOMMENDATION: Screening bilateral mammogram is recommended in 1 year. Mammo Location: [facility], [facility], [address] [place] [id number] -------- FINAL REPORT -------- Dictated By: Myke Bradshaw Dictated Date: 08/13/2024 11:43 ET Assigned Physician: Myke Bradshaw Reviewed and Electronically Signed By: Myke Bradshaw Signed Date: 08/13/2024 11:57 ET Workstation ID: [id number] Transcribed By: Self Edit Transcribed Date: 08/13/2024 11:43 ET Dhaval Francois MD IMG BI PROCEDURES * [facility] DEXA AXIAL SKELETON (07/01/2023 8:13 AM EST) Anatomical Region Laterality Modality Mammography 06/30/2023 1:05 PM EST Narrative 07/01/2023 8:13 AM EST [facility] Diagnostic Imaging Department [address] [place] [address] Patient: ??NABOR GALINDO ?/Age/Sex: 1945 - 77 - F Unit#: ??[id number] ? Location/Status: ??SPDIMAM/REG CLI ? Mnemonic/Ordering Site: ??MAMDEXAAX/SPMAM Ordering Physician: ??DHAVAL FRANCOIS MD [facility] Dexa Axial Skeleton - 06/30/23 - 1329 Report Status:Signed HISTORY: ??The patient is a 77-year-old postmenopausal female with clinical concern for metabolic bone disease. ??The patient has a history of breast carcinoma. FINDINGS: ??Dual energy x-ray absorptiometry of the lumbar spine and femurs is performed. The mean bone mineral density at L1-L4 (with the exclusion of L2 and L3) is 1.342 gm/cm2 which is 115% of that of young normals and 137% of that of age matched controls. This yields a T-score of 1.5 and a Z-score of 3.0 and there is therefore no evidence of osteoporosis or osteopenia here. The mean bone mineral density of the femurs bilaterally is 0.833 gm/cm2 which is 83% of that of young normals and 106% of that of age matched controls. ??This yields a T-score of -1.4 and a Z-score of 0.4 which is diagnostic of osteopenia. The T-score of the right femoral neck is -1.7 and that of the left femoral neck is -1.5 which is diagnostic of osteopenia. IMPRESSION: 1. Osteopenia. ??There has been a decrease of 9.4% in bone mineral density in the lumbar spine since the prior examination of 04/29/2021. ??There has been a decrease of 5.6% in bone mineral density in the right femur and a decrease of 0.3% in bone mineral density in the left femur. 2. FRAX analysis yields a 10-year probability of major osteoporotic fracture of 5.9% and a 10-year probability of hip fracture of 1.4%. Code 41253 CT Teleradiology Dictating Physician: ??MYKE BRADSHAW MD Electronically Signed by: ??MYKE BRADSHAW MD Dic Date/Time: ??07/01/23810 Sign date/Time: ??07/01/23812 Procedure Note Myke Bradshaw MD - 09/27/2023 [facility] Diagnostic Imaging Department [address] [place] [address] Patient: NABOR GALINDO D.O.B./Age/Sex: 1945 - 77 - F Unit#: [id number] Location/Status: SPDIMA/REG I Mnemonic/Ordering Site: [facility] Ordering Physician: DHAVAL FRANCOIS MD [facility] Dexa Axial Skeleton - 06/30/23 - 1329 Report Status:Signed HISTORY: The patient is a 77-year-old postmenopausal female withclinical concern for metabolic bone disease. The patient has a history of breast carcinoma. FINDINGS: Dual energy x-ray absorptiometry of the lumbar spine and femursis performed. The mean bone mineral density at L1-L4 (with the exclusion ofL2 and L3) is 1.342 gm/cm2 which is 115% of that of young normals and 137% ofthat of age matched controls. This yields a T-score of 1.5 and a Z-score of 3.0and there is therefore no evidence of osteoporosis or osteopenia here. The mean bone mineral density of the femurs bilaterally is 0.833 gm/zw3gvifk is 83% of that of young normals and 106% of that of age matched controls.This yields a T-score of -1.4 and a Z-score of 0.4 which is diagnostic ofosteopenia. The T-score of the right femoral neck is -1.7 and that of the left femoralneck is -1.5 which is diagnostic of osteopenia. IMPRESSION: 1. Osteopenia. There has been a decrease of 9.4% in bone mineral densityin the lumbar spine since the prior examination of 04/29/2021. There has heather decrease of 5.6% in bone mineral density in the right femur and a decreaseof 0.3% in bone mineral density in the left femur. 2. FRAX analysis yields a 10-year probability of major osteoporoticfracture of 5.9% and a 10-year probability of hip fracture of 1.4%. Code 57174 CT Teleradiology Dictating Physician: MYKE BRADSHAW MD Electronically Signed by: MYKE BRADSHAW MD Dic Date/Time: 07/01/23810 Sign date/Time: 07/01/23812 Dhaval Francois MD IMG BI PROCEDURES from Last 3 Months or Most Recently Relevant to Health Maintenance Care Teams Associate Dentist Relationship Specialty Start Date End Date Peyman Boss MD [address] [place] [phone] PCP - General 12/26/08
--- OUTSIDE RECORDS SUMMARY | 2024-09-24 11:40 | XMS_ITS ---
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, UNSPECIFIED (F32.9 - ICD-10-CM) ACTIVE 12/05/2021 UNSPECIFIED ASTHMA WITH (ACU TE) EXACERBATION (J45.901 - ICD-10-CM) ACTIVE 12/05/2021 MUSCLE WASTING AND ATROPHY, NOT ELSEWHERE CLASSIFIED, RIGHT SHOULDER (M62.511 - ICD-10-CM) ACTIVE 12/05/2021 MUSCLE WASTING AND ATROPHY, NOT ELSEWHERE CLASSIFIED, LEFT SHOULDER (M62.512 - ICD-10-CM) ACTIVE 12/05/2021 PERIPHERAL VASCULAR DISEASE, UNSPECIFIED (I73.9 - ICD-10-CM) ACTIVE 12/05/2021 UNSPECIFIED ATRIAL FIBRILLATION (I48.91 - ICD-10-CM) A CTIVE 12/05/2021 ESSENTIAL (PRIMARY) HYPERTENSION (I10 - ICD-10-CM) ACT TEMO 12/05/2021 MALIGNANT NEOPLASM OF UNSPEC IFIED SITE OF RIGHT FEMALE BREAST (C50.911 - ICD-10-CM) ACTIVE 12/05/2021 Encounters Encounter Performer Performer Role Encounter Diagnoses Location Date Discharge - Discharged to home or self care - [facility] - Private home/apt. with home health services [facility] 2 05:36 pm EDT - 2 11:16 am EDT Immunizations Vaccine Date Influenza TB 2 Step Mantoux Skin Test PCV13 (Pneumococcal Conjugate)Vaccine SARS-COV-2 (COVID-19) 11/18/2020 12:00 a m EDT SARS-COV-2 (COVID-19) 10/21/2020 12:00 a m EST Pfizer Covid-19 Booster (SARS-COV-2) vac cine 06/26/2021 12:00 am EDT Social History
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
--- OUTSIDE RECORDS SUMMARY | 2024-09-24 11:42 | XMS_ITS | Clinical Summary ---
Author Organization [facility] Address [address] [place] [address] Care Team Providers Care Hospitality Housekeeper Name Role Phone Peyman Boss MD Primary Care Provider Unavail able Allergies No known active allergies Medications Medication Sig Dispensed Refills Start Date End Date Status sotalol (BETAPACE) 80 MG tablet Take 1 tablet (80 mg total) by mouth 2 (two) times a day. 0 Active lisinopril (PRINIVIL,ZESTRIL) tablet 5 mg Take 1 tablet (5 mg total) by mouth daily. 0 Active rosuvastatin (CRESTOR) tablet 40 mg Take 1 tablet (40 mg total) by mouth daily. 0 Active gabapentin (NEURONTIN) 100 MG capsule Take 1 capsule (100 mg total) by mouth 3 (three) times a day. 0 Active IPRATROPIUM-ALBUTEROL IN Inhale into the lungs. 0 Active fluticasone (FLONASE) 50 MCG/ACT nasal spray spray/apply 1 spray in each nostril daily. 0 Active Cholecalciferol (Vitamin D3) 50 MCG (2000 UT) capsule Take 2,000 Units by mouth daily. 0 Active warfarin (COUMADIN) 5 MG tablet Take by mouth. 0 Active METOPROLOL SUCCINATE PO Take by mouth. 0 Active tamsulosin (FLOMAX) 0.4 MG CAPS Take 1 capsule (0.4 mg total) by mouth daily. 0 Active spironolactone (ALDACTONE) tablet 25 mg Take 0.5 tablets (12.5 mg total) by mouth daily. 12.5mb 0 Active DIGOXIN PO Take by mouth. 0 Active apixaban (ELIQUIS) 5 MG TABS tablet Take by mouth every 12 (twelve) hours. 0 Active potassium chloride ER (K-DUR,KLOR-CON) tablet 10 mEq Take 1 tablet (10 mEq total) by mouth 2 (two) times a day. 0 Active melatonin 3 MG TABS tablet Take by mouth every night at bedtime. 0 Active losartan (COZAAR) tablet 25 mg Take 1 tablet (25 mg total) by mouth daily. 0 Active furosemide (LASIX) 20 MG tablet Take 1 tablet (20 mg total) by mouth 2 (two) times a day. 0 Active letrozole (FEMARA) 2.5 MG tablet TAKE ONE TABLET BY MOUTH EVERY DAY 90 tablet 3 04/26/2023 Active Active Problems Problem Noted Date Diagnosed Date Malignant neoplasm of lower- outer quadrant of right breast of female, estrogen receptor positive 04/20/2021 Social History Tobacco Use Types Packs/Day Years Used Date Smoking Tobacco: Never Assessed Sex and Gender Information Value Date Recorded Sex Assigned at Not on file Gender Identity Not on file Sexual Orientation Not on file Job Start Date Occupation Industry Not on file Not on file Not on file Last Filed Vital Signs Vital Sign Reading Time Taken Comments Blood Pressure 155/107 12/16/2023 11:57 AM EDT Pulse 86 12/16/2023 11:57 AM EDT Temperature 35.6 ??C (96 ??F) 12/16/2023 11:57 AM EDT Respiratory Rate - - Oxygen Saturation 100% 12/16/2023 11:57 AM EDT Inhaled Oxygen Concentration - - Weight 69.9 kg (154 lb 3.2 oz) 12/16/2023 11:57 AM EDT Height 147.3 cm (4' 10 ) 06/15/2023 12:05 PM EDT Body Mass Index 32.23 06/15/2023 12:05 PM EDT Plan of Treatment Health Maintenance Due Date Last Done Comments Pneumococcal Vaccine (1 of 2 - PCV) 1950 Depression Screening 1956 Preventative Health Evaluation 1962 DTap / Tdap / Td (1 - Tdap) 1963 Shingrix-Zoster Vaccine (1 of 2) 1963 Fall Risk Assessment 2009 Osteoporosis Screening (DEXA Scan) 2009 RSV Adult > 60+ Yrs or Pregn ant (1 - 1-dose 75+ series) 2019 COVID-19 Vaccine (2 - Pfizer risk series) 07/17/2021 06/26/2021 Influenza Vaccine (#1) 2024 Hepatitis B Vaccines Aged Out No long er eligible based on patient's age to complete this topic RSV Ped < 20 months Aged Out No longe r eligible based on patient's age to complete this topic Care Teams Hospitality Housekeeper Relationship Specialty Start Date End Date Peyman Boss MD PCP - General Internal Medicine 04/16/21
== END 2024-09-24 11:23 | disposition home or self-care (01) ==
PROVIDERS: PCP Internal Medicine; Visit Provider Internal Medicine
DX: J44.9 Chronic obstructive pulmonary disease, unspecified (principal); G47.33 Obstructive sleep apnea (adult) (pediatric); Z99.89 Dependence on other enabling machines and devices; J30.9 Allergic rhinitis, unspecified
CPT/HCPCS: 99213

== ENCOUNTER → 2024-09-24 10:46 | Outpatient (BNVA) | payer MEDICARE, MEDICAID, SELFPAY | PROVIDERS: PCP Internal Medicine; Visit Provider Internal Medicine | DX: J44.9 Chronic obstructive pulmonary disease, unspecified (principal); J30.9 Allergic rhinitis, unspecified; G47.33 Obstructive sleep apnea (adult) (pediatric); Z99.89 Dependence on other enabling machines and devices | CPT/HCPCS: 99212 ==

== ENCOUNTER 2025-04-25 11:24 | Outpatient (AMB) | payer MEDICARE, MEDICAID, SELFPAY ==
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
[2025-04-25 11:43] VITALS: BP 120/64; PULSE 75; O2SAT 99; BMI 22.0
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
--- OUTSIDE RECORDS SUMMARY | 2025-04-25 13:05 | XMS_ITS | Clinical Summary ---
Author Organization [facility] Address [address] [place] [address] Phone Care Team Providers Care Chief Client Officer Name Role Phone Peyman Boss MD Primary Care Provider [phone] Allergies No known active allergies Medications apixaban (ELIQUIS) 5 mg tablet Take by [...] by mouth 2 times daily. Active lisinopriL (PRINIVIL,ZESTR IL) 5 mg tablet Take 5 mg by mouth daily. Active rosuvastatin (CRESTOR) 40 mg tablet Take 40 mg by mouth daily. Active gabapentin (NEURONTIN) 300 mg capsule Take 300 mg by mouth 3 times daily. Active docusate sodium (COLACE) 100 mg capsule Take 100 mg by mouth 2 times daily. Active ipratropium/alb uterol sulfate (COMBIVENT INHL) Inhale into the lungs. Active fluticasone propionate (FLONASE) 50 mcg/actuation nasal spray 2 Sprays by Each Nare route daily. Active cholecalciferol (VITAMIN D-3) 50 mcg (2,000 unit) capsule Take by mouth. Active furosemide (LASIX) 40 mg tablet Take 40 mg by mouth 2 times daily. Active warfarin sodium (COUMADIN ORAL) Take by mouth. Active letrozole (FEMARA) 2.5 mg tablet TAKE ONE TABLET BY MOUTH EVERY DAY 90 tablet 3 08/27/2024 Active Active Problems Problem Noted Date Diagnosed Date Malignant neoplasm of overla pping sites of right breast in female, estrogen receptor positive ([facility] V24, [facility] V28) 07/24/2024 Cardiomyopathy ([facility] V24, [facility] V28) 2011 Overview (06/20/2024): LVEF 2008 25-30% Echo 03/2011 LVEF 50-55%, mild LVH, diastolic dysfunction, TRELL mildly dilated mild MR Thought to be afib/tachy mediated COPD (chronic obstructive pu lmonary disease) ([facility] V24, [facility] V28) 06/14/2012 DM2 (diabetes mellitus, type 2) ([facility] V24, [facility] V28) 06/14/2012 HTN (hypertension) 06/14/2012 Hyperlipidemia with target LDL less than 70 05/23 Overview (06/20/2024): IMO update Observed sleep apnea 06/14/2012 Paroxysmal A-fib ([facility] V24, [facility] V28) 05/23 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 Encounters Date Type Department Care Team Description 01/30/2025 11:00 AM EDT Office Visit [facility] Hematology Oncology [address] [place] [phone] Dhaval Francois MD Malignant neoplasm of overlapping sites of right breast in female, estrogen receptor positive ([facility] V24, [facility] V28) (Primary Dx) from Last 3 Months Surgical History Surgery Date Site/Laterality Comments US GUIDED BREAST BIOPSY RIGHT 08/22/2020 - 08/21/2021 Ri ght Social History Tobacco Use Types Packs/Day Years Used Date Smoking Tobacco: Never Assessed Comments No Sex and Gender Information Value Date Recorded Sex Assigned at Female 07/25/2024 9:29 AM EST Legal Sex Female 2:31 PM EST Gender Identity Female 07/25/2024 9:29 AM EST Sexual Orientation Straight 07/25/2024 9: 29 AM EST Obstetrics History Para Term AB IAB SAB Ectopic Multiple Livin g Live Births 9 Last Filed Vital Signs Vital Sign Reading Time Taken Comments Blood Pressure 132/57 01/30/2025 11:03 AM EDT Pulse 86 01/30/2025 11:03 AM EDT Temperature 36.2 C (97.1 F) 01/30/2025 11:03 AM EDT Respiratory Rate - - Oxygen Saturation 95% 01/30/2025 11:03 AM EDT Inhaled Oxygen Concentration - - Weight 66.2 kg (146 lb) 01/30/2025 11:03 AM EDT Height 157.5 cm (5' 2 ) 07/04/2023 11:18 AM EST Body Mass Index 26.7 07/04/2023 11:18 AM EST Plan of Treatment Upcoming Encounters Date Type Department Care Team (Late st Contact Info) Description 08/07/2025 11:15 AM EST Office Visit [facility] Hematology Oncology [address] [place] [address] Dhaval Francois MD [address] [place] [address] Health Maintenance Due Date Last Done Comments Diabetes: Annual Foot Exam 1954 Diabetes: Annual Retina Eye Exam 1955 DTaP,Tdap,and Td Vaccines (1 - Tdap) 1963 Zoster Vaccines (1 of 2) 1963 RSV Immunization Adult Patients (1 - 1-dose 75+ series) 2019 Pneumococcal Vaccine: 50+ Years (2 of 2 - PCV) 06/21/2020 06/21/2019 Cholesterol Screening (Lipid Panel) 07/31/2022 Falls Risk Assessment 07/31/2022 Medicare Annual Wellness Visit 07/31/2022 Social Influencers of Health Screening 07/31/2022 Diabetes: Annual Urine Albumin-Creatinine Ratio (uACR) 08/07/2022 Diabetes: Blood Sugar Control Test (HGBA1C) 08/07/2022 Diabetes: Annual GFR (Glomerular Filtration Rate) 01/18/2023 01/18/2022, 01/17/2022, 01/16/2022, Additional history exists Hypertension/CHF/CAD Annual BMP Blood Test 01/18/2023 01/18/2022, 01/17/2022, 01/16/2022, Additional history exists COVID-19 Vaccine ( season) 2024 06/26/2021, 11/18/2020, 10/21/2020 Depression Screening 08/22/2024 Influenza Vaccine (#1) 2025 , 08/25/2023, 07/29/2021, Additional history exists Osteoporosis Screening (Bone Density Screening) 07/01/2033 07/01/2023, 04/29/2021 HIB Vaccines Aged Out No longer eligi [...] patient's age to complete this topic Meningococcal B Vaccine Aged Out No l onger eligible based on patient's age to complete this topic RSV Immunization Patients Under 20 months Aged Out No longer eligible based on patient's age to complete this topic Varicella Vaccines Aged Out No longer eligible based on patient's age to complete this topic Procedures Procedure Name Priority Date/Time Associated Diagnosis Comments [facility] DEXA AXIAL SKELETON Routine 07/01/2023 8:13 AM EST Other specified disorders of bone density and structure, left thigh from Last 3 Months or Most Recently Relevant to Health Maintenance Results * [facility] DEXA AXIAL SKELETON (07/01/2023 8:13 AM EST) Anatomical Region Laterality Modality Mammography 06/30/2023 1:05 PM EST Narrative 07/01/2023 8:13 AM EST [facility] Diagnostic Imaging Department [address] [place] [address] Patient: NABOR VEGA /Age/Sex: 1945 - 77 - F Unit#: [id number] Location/Status: SPDIMAM/REG CLI Mnemonic/Ordering Site: MAMDEXAAX/SPMAM Ordering Physician: DHAVAL FRANCOIS MD [facility] Dexa Axial Skeleton - 06/30/23 - 1329 Report Status:Signed HISTORY: The patient is a 77-year-old postmenopausal female with clinical concern for metabolic bone disease. The patient [...] 106% of that of age matched controls. This yields a T-score of -1.4 and a [...] the prior examination of 04/29/2021. There has been a decrease of 5.6% in bone mineral density in the right femur and a decrease of 0.3% in bone mineral density in the left femur. 2. FRAX analysis yields a 10-year probability of major osteoporotic fracture of 5.9% and a 10-year probability of hip fracture of 1.4%. Code [address] CT Teleradiology Dictating Physician: MYKE BRADSHAW MD Electronically Signed by: MYKE BRADSHAW MD Dic Date/Time: 07/01/23810 Sign date/Time: 07/01/23812 Procedure Note Myke Bradshaw MD - 09/27/2023 [facility] Diagnostic Imaging Department [address] [place] [address] Patient: NABOR VEGA/Age/Sex: 1945 - 77 - F Unit#: [id number] Location/Status: [facility] Mnemonic/Ordering Site: [facility] Ordering Physician: DHAVAL FRANCOIS MD [facility] Dexa Axial Skeleton - 06/30/23 - 1320 Report Status:Signed HISTORY: The patient is a [...] density of the femurs bilaterally is 0.833 gm/bv8oczur is 83% of that of young normals [...] probability of hip fracture of 1.4%. Code 74531 CT Teleradiology Dictating Physician: MYKE BRADSHAW MD Electronically Signed by: MYKE BRADSHAW MD Dic Date/Time: 07/01/23810 Sign date/Time: 07/01/23812 Dhaval Francois MD IMG BI PROCEDURES Final Res ult from Last 3 Months or Most Recently Relevant to Health Maintenance Insurance MEDICAID - [place] MEDICARE Care Teams Chief Client Officer Relationship Specialty Start Date End Date Peyman Boss MD [address] [place] [id number] PCP - General 12/26/08
--- OUTSIDE RECORDS SUMMARY | 2025-04-25 13:05 | XMS_ITS ---
Author Organization [facility] Care Team Providers Care Educational Psychology Teacher Name Role Phone James Galvin Unavailable Unavailable Parvin Oh Unavailable Unavailable Sadia Sada Unavailable Unavailable Allergies and adverse reactions No Known Allergies Care Team Name Role Address Phone Organization Dates James Galvin PCP [address], [address], [facility] (Office): : [facility] 12/05/2021 - 12/19/2021 Parvin Oh [address], [address], [facility] (Office): : [facility] 12/05/2021 - 12/19/2021 Sada Mccullough [address], [address], [facility] (Office): [facility] 12/05/2021 - 12/19/2021 Immunizations Immunization Status Vaccine Details Vaccine Code CodeSystem [place] e Notes SARS-COV-2 (COVID-19) completed SARS-COV-2 (COVID-19) vaccine, mRNA, spike protein, LNP, preservative free, 100 mcg/0.5mL dose or 50 mcg/0.25mL dose Step 2 of Multi-step with next step required 207 CVX created date: 12/05/2021 administered date: 11/18/2020 SARS-COV-2 (COVID-19) completed SARS-COV-2 (COVID-19) vaccine, mRNA, spike protein, LNP, preservative free, 100 mcg/0.5mL dose or 50 mcg/0.25mL dose Step 1 of Multi-step with next step required 207 CVX created date: 12/05/2021 administered date: 10/21/2020 Pfizer Covid-19 Booster (SARS-COV-2) vaccine completed SARS-COV-2 (COVID-19) vaccine, mRNA, spike protein, LNP, preservative free, 30 mcg/0.3mL dose 208 CVX created date: 12/05/2021 administered date: 06/26/2021 Mental Status Section Date Assessment Total Score Description 12/19/2021 BIMS 13 cognitively int act CAM 0 No delirium ind icated PHQ-9 03 minimal depress ion 12/11/2021 BIMS 13 cognitively int act CAM 0 No delirium ind icated PHQ-9 04 minimal depress ion Problems Problem # Description Date of onset Resolved Date Code CodeSystem Concern Status 1 ACUTE SYSTOLIC (CONGESTIVE) HEART FAILURE 12/05/[address] active 2 ANXIETY DISORDER, UNSPECIFIED 12/05/[address] active 3 ESSENTIAL (PRIMARY) HYPERTENSION 12/05/[address] active 4 MAJOR DEPRESSIVE DISORDER, SINGLE EPISODE, UNSPECIFIED 12/05/[address] active 5 MALIGNANT NEOPLASM OF UNSPECIFIED SITE OF RIGHT FEMALE BREAST 12/05/[address] active 6 MUSCLE WASTING AND ATROPHY, NOT ELSEWHERE CLASSIFIED, LEFT SHOULDER 12/05/[address] active 7 MUSCLE WASTING AND ATROPHY, NOT ELSEWHERE CLASSIFIED, RIGHT SHOULDER 12/05/[address] active 8 OTHER LACK OF COORDINATION 12/05/[address] active 9 PERIPHERAL VASCULAR DISEASE, UNSPECIFIED 12/05/[address] active 10 UNSPECIFIED ASTHMA WITH (ACUTE) EXACERBATION 12/05/[address] active 11 UNSPECIFIED ATRIAL FIBRILLATION 12/05/[address] active Reason for Referral No Reasons for Referral Entered Social History Social History Observation Description Start Date End Date Code Code System Current Smoking Status Tobacco smoking consumption unknown 455088871 SNOMED CT Sex Assigned At Female 1945 [address]-2 [facility] Gender Identity Vital Signs Code Code System Vitals Name Values and Units Timing Information 8462-4 [facility] Blood Pressure-Diastolic Value=76 Un its=mmHg 12/19/2021 8480-6 LOINC Blood Pressure-Systolic Mojqk=940 Un its=mmHg 12/19/2021 8867-4 LOINC Heart rate Value=73.0 Units=/min 83739-1 LOINC Pain Level Value=0.0 12/19/2021 9279-1 LOINC Respiratory Rate Value=18.0 Units=/m in 12/19/2021 8310-5 LOINC Body Temperature Value=97.4 Units= F 12/19/2021 82619-4 LOINC O2 % BldC Oximetry Value=94.0 Units= % 12/19/2021 24300-7 LOINC Weight Cmhot=848.8 Units=Lbs 8302-2 LOINC Height Value=60.0 Units=Inches 12/05/2021
--- OUTSIDE RECORDS SUMMARY | 2025-04-25 13:05 | XMS_ITS | Clinical Summary ---
Author Organization [facility] Address [address] [place] [address] Care Team Providers Care Automation And Controls Instructor Name Role Phone Peyman Boss MD Primary [...] 86 12/16/2023 11:57 AM EDT Temperature 35.6 C (96 F) 12/16/2023 11:57 AM EDT Respiratory Rate - [...] risk series) 07/17/2021 06/26/2021 Influenza Vaccine (#1) 2025 Hepatitis B Vaccines Aged Out No long er eligible based on patient's age to complete this topic RSV Ped < 20 months Aged Out No longe r eligible based on patient's age to complete this topic Care Teams Automation And Controls Instructor Relationship Specialty Start Date End Date Peyman Boss MD PCP - General Internal Medicine 04/16/21
== END 2025-04-25 12:00 | disposition home or self-care (01) ==
LOC: HO.HPS 11:24
PROVIDERS: PCP Internal Medicine; Visit Provider Internal Medicine
DX: J44.9 Chronic obstructive pulmonary disease, unspecified (principal); G47.33 Obstructive sleep apnea (adult) (pediatric); Z99.89 Dependence on other enabling machines and devices
CPT/HCPCS: 99213

== ENCOUNTER → 2025-04-25 11:24 | Outpatient (BNVA) | payer MEDICARE, MEDICAID, SELFPAY | PROVIDERS: PCP Internal Medicine; Visit Provider Internal Medicine | DX: J44.9 Chronic obstructive pulmonary disease, unspecified (principal); G47.33 Obstructive sleep apnea (adult) (pediatric); Z99.89 Dependence on other enabling machines and devices | CPT/HCPCS: 99212 ==

== ENCOUNTER 2025-06-06 05:32 | Outpatient (REF) | payer MEDICARE, MEDICAID, SELFPAY ==
--- OUTSIDE RECORDS SUMMARY | 2025-05-15 16:32 | XMS_ITS | Encounter Summary ---
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 Jhoan Sanz MD [address] [place] [address] Phone: tel: fax: [facility] [address] [place] [phone] Phone: tel: Referral ID Status Reason Start Date Expiration Date Visits Re quested Visits Authorized [id number] 1 1 Encounter Details Date Type Department Care Team (Late st Contact Info) Description 05/15/2025 4:32 PM EDT - 06/05/2025 6:03 PM EDT Hospital Encounter [facility] [address] [place] [phone] Ivania Vidal MD [address] [place] [address] Terell Dickey MD [address] [place] [phone] Jhoan Sanz MD [address] [place] [address] Ernesto Lynch MD [address] [place] [address] Desmond Molina MD [address] [place] [address] Amarjit Ayala DO [address] [place] [address] Charlotte Camara MD [address] [place], [place] [phone] Kia Le MD [address] [place] [address] Acute metabolic encephalopathy (Primary Dx); Hypercalcemia; Cardiomyopathy, unspecified type (CMS/HCC V24, CMS/HCC V28); Edema of right upper arm; Malignancy (CMS/HCC V24, CMS/HCC V28); 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 Unable to respond 025 Within the past 12 months th e food we bought just didn't last and we didn't have money to get more. Unable to respond 04/23 Interpersonal Safety Answer Date Record ed Physical Abuse Unrecognized value 05/31/2025 Verbal Abuse Unrecognized value 05/31/2025 Comments No Sex and Gender Information Value Date Recorded Sex Assigned at Female 07/25/2024 9:29 AM EST Legal Sex Female 2:31 PM EST Gender Identity Female 07/25/2024 9:29 AM EST Sexual Orientation Straight 07/25/2024 9: 29 AM EST documented as of this encounter Last Filed Vital Signs Vital Sign Reading Time Taken Comments Blood Pressure 99/65 06/05/2025 3:09 PM EDT Pulse 99 06/05/2025 3:09 PM EDT Temperature 37.2 C (99 F) 06/05/2025 3:09 PM EDT Respiratory Rate 18 06/05/2025 3:09 PM EDT Oxygen Saturation 98% 06/05/2025 3:09 PM EDT Inhaled Oxygen Concentration - - Weight 58.7 kg (129 lb 6.4 oz) 06/05/2025 5:57 A M EDT Height 157.5 cm (5' 2 ) 05/26/2025 1:10 PM EDT Body Mass Index 23.67 05/26/2025 1:10 PM EDT documented in this encounter Functional Status * Calculated C-SSRS Risk Score (Lifetime/Recent) Answer Date of Assessment Author No Risk Indicated 05/15/2025 6:51 PM EDT Ash Guerrero RN * [place] Suicide Severity Rating Scale (Screener/Recent Self-Report) Question Answer Date of Assessment Author 1. Wish to be (Past 1 Month) No 025 6:51 PM EDT Ash Guerrero RN 2. Non-Specific Active Suici kaity Thoughts (Past 1 Month) No 05/15/2025 6:51 PM EDT Fiordaliza Guerrero RN 6. Suicidal Behavior (Lifetime) No 6:51 PM EDT Ash Guerrero RN documented as of this encounter Discharge Summaries * Kia Le MD - 06/05/2025 3:08 PM EDT Images from the original note were not included. 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 Loyola Patient had a HD catheter placed in right internal jugular vein HD catheter placement done on 05/27/2025 HD catheter removal on 06/05/2025 Discharge Medications Medication List TAKE these medications acetaminophen 325 mg tablet Commonly known as: TYLENOL Take 2 tablets (650 mg total) by mouth every 6 (six) hours if needed. cholecalciferol 50 mcg (2,000 unit) capsule Commonly known as: VITAMIN D-3 Take by mouth. fluticasone propionate 50 mcg/actuation nasal spray Commonly known as: FLONASE 2 Sprays by Each Nare route daily. gabapentin 100 mg capsule Commonly known as: NEURONTIN Take 1 capsule (100 mg total) by mouth. metoprolol tartrate 50 mg tablet Commonly known as: LOPRESSOR Take 1 tablet (50 mg total) by mouth 2 (two) times a day. midodrine 10 mg tablet Commonly known as: PROAMATINE Take 1 tablet (10 mg total) by mouth 3 (three) times a day before meals. To hold if SBP>120 multivitamin tablet Take 1 tablet by mouth 1 (one) time each day. Start taking on: June 06, 2025 OLANZapine 5 mg disintegrating tablet Commonly known as: ZyPREXA ZYDIS Take 1 tablet (5 mg total) by mouth 2 (two) times a day if needed (delirium). pantoprazole 40 mg EC tablet Commonly known as: PROTONIX Take 1 tablet (40 mg total) by mouth 2 (two) times a day. Do not crush, chew, or split. polyethylene glycol 17 gram packet Commonly known as: MIRALAX Take 17 g by mouth 1 (one) time each day if needed for constipation for up to 3 days. potassium chloride 10 mEq CR tablet Commonly known as: KLOR-CON M10 Take 2 tablets (20 mEq total) by mouth 1 (one) time each day. Rocklatan 0.02-0.005 % drops Generic drug: netarsudiL-latanoprost Administer 1 drop into both eyes 1 (one) time each day in the evening. rosuvastatin 40 mg tablet Commonly known as: CRESTOR Take 40 mg by mouth daily. tamoxifen 20 mg chemo tablet Commonly known as: NOLVADEX Take 1 tablet (20 mg total) by mouth 1 (one) time each day Take with water or any other nonalcoholic drink with or without food at around the same time(s) every day. Start taking on: June 06, 2025 tamsulosin 0.4 mg 24 hr capsule Commonly known as: FLOMAX Take 1 capsule (0.4 mg total) by mouth. thiamine 100 mg tablet Commonly known as: VITAMIN B-1 Take 1 tablet (100 mg total) by mouth 1 (one) time each day. Start taking on: June 06, 2025 Hospital Course Summary CHIEF COMPLAINT Altered mental status HISTORY OF PRESENT ILLNESS Mrs. Rafael Klein is a 79-year-old Ecuadorean speaking female with PMH breast cancer follows with Dr. Joseph, Hypertension, Hyperlipidemia, HFrEF, COPD, [facility] others seen today with educational interpreter and family for complaint of altered mental status. Patient wasonly oriented to person. Patient send reports that started a few days ago and she started tramadol for pain. She states she has not been eating or drinking as much she has had no appetite. She also denies any chest pain, shortness of breath, nausea or vomiting, abdominal pain, dysuria. She has not been febrile at home. She did have a bowel movement yesterday but her daughter reports she has been constipated prior to this. She endorses that she has pain all over but is probably located in the lower back extending into her hips. She does endorse weakness and fatigue into the ambulates with use of a cane but has been using a walker and is now not ambulating secondary to her ongoing generalizedweakness. She had an outpatient CT scan on 04/26 with findings concerning for multiple myeloma versusmetastatic disease. Given these findings and her confusion her primary care decided to send her in for further evaluation. Of note her daughter reports that she has been taking Entresto for over 1 year now and she has been in contact with her primary care as well as line out man to determine if she should restart his medication or not. She still takes furosemide and spironolactone. Vitals are as follows: 36.4, pulse of 110, respiratory rate 22, bp of 133/83, pulse ox 95% on room air. Labs are notable for calcium of 12.1, albumin of 2.1, AST of 123, alk phos of 359, BNP of 199, CRP of greater than 190, oxycodone 13.8, INR 1.7. EKG 107 bpm atrial fibrillation. Chest x-ray pending formal read appears to show no pulmonary edema or pneumonia. Brain Ct showed no acute intracranial findings. Patient was given 1 L normal saline in the ED. Patient be transferred to the care of staff further management of their acute metabolic encephalopathy, hypercalcemia, multiple myeloma versus metastatic disease. Hospital Course: 79-year-old Ecuadorean-speaking female with PMH breast cancer follows with Dr. Joseph, hypertension, leukemia, HFrEF, COPD, paroxysmal atrial fibrillation Eliquis downgraded from the ICU on 05/29/2025. Patient admitted on 05/15/2025. Patient with metastatic disease from her breast cancer. Acute blood loss anemia Questionable acute colonic ischemia worsened by chronic anticoagulation Received 2 units of blood on 05/31/2025. Hemoglobin remained stable Patient seen by GI Patient did not undergo EGD. Eliquis has been held. Hemoglobin remained stable. Continue with PPI. Acute metabolic encephalopathy on admission seems to have resolved at this time. Hypercalcemia resolved ZEN/ATN leading to end-stage renal disease started on hemodialysis Status post tunneled catheter placement on 05/27/2025 first hemodialysis on 05/28/2025 No obstruction seen by CT scan. Hypercalcemia due to metastatic breast CA Continue to follow renal recommendations Hypercalcemia resolved Dialysis catheter removed today by IR. Per nephrology no further dialysis required. Hold MRA, ARB-NI upon DC A-fib with RVR with improved heart rates on metoprolol Patient also on amiodarone which has been discontinued by cardiology. Metoprolol dose changed to 50mg twice daily average heart rates at rest should be less than 110 Eliquis to be held Echo showed EF of 30 to 35% with mild to moderate MR and moderate TR Hypotension seems to be getting better. Will be on midodrine as needed for low blood pressure. HFrEF: Per renal to hold Entresto and spironolactone on discharge Hypokalemia and hypomagnesemia: will replete today , potassium levels repleted today UTI completed treatment Metastatic breast cancer -diagnosed in 2020, s/p partial mastectomy right, declined adjuvant radiation. Had bone scan in outpatient which showed multiplie bone mets. Underwent bone biopsy on 05/20, path revealed breast canceras primary, MM workup was negative. -Dr. Joseph was consulted during admission, continues on tamoxifen (letrozole was discontinued). - Patient had bone biopsy done estrogen receptor negative progesterone receptor negative HER2 negative Pt seen by Wound RN : Please refer to her note Right upper extremity hematoma noted. Ultrasound shows thrombus in the right cephalic vein in the upper forearm Hyperlipidemia on statin PT evaluation recommending rehab Pt to be discharged today Physical Exam at time of Discharge BP 99/65 Pulse 99 Temp 37.2 ??C (99 ??F) Resp 18 Ht 1.575 m (62 ) Wt 58.7 kg (129 lb 6.4 oz) BMI 23.67 kg/m?? Physical Exam Gen: Chronically ill-appearing alert and oriented CV -RRR no MGR Lungs -diminished air entry at the bases Abd - Soft, non-tender, non-distended Extremities -right upper extremity hematoma getting better Dry skin and lower extremities Neuro -alert , no focal deficits Labs/Imaging CT Chest/Abdomen/Pelvis w Contrast Result Date: 05/16/2025 CT CHEST, ABDOMEN AND PELVIS WITH CONTRAST INDICATION: Unknown primary, initial workup TECHNIQUE: Chest, abdomen and pelvis CT following the intravenous administration of 90cc ISOVUE 370. Multiplanarreformats were created and interpreted. The examination was performed utilizing dose reduction techniques. Total DLP: 450 mGy/cm COMPARISON: No priors available. FINDINGS: LUNGS/PLEURA: Hypoventilatory examination with atelectasis. Patchy groundglass opacities in the upper lobes which could be infectious/inflammatory though a follow-up CT chest should be performed in 3 months to ensure resolution. MEDIASTINUM: Cardiomegaly with coronary artery calcifications. Heterogenous appearance of the thyroid with thyroid nodules. CHEST WALL: Posttreatment changes in the right breast. HEPATOBILIARY: No focal liver lesions. Cholelithiasis. SPLEEN: no focal lesion PANCREAS: No focal mass or ductal dilatation. ADRENALS: No nodules. KIDNEYS/URETERS: Nonobstructing right renal calculi. PELVIC ORGANS/BLADDER: Bladder is distended. PERITONEUM / RETROPERITONEUM: No ascites or free air. No retroperitoneal lymphadenopathy. VESSELS: Sclerotic plaque throughout the GI TRACT: The aorta. BONES AND SOFT TISSUES: There are numerous metastatic lesions throughout the bones with multilevel degenerative changes ofthe spine with anterolisthesis of L4 and L5. No acute osseous abnormality. Remote rib deformities. Soft tissues are unremarkable. 1. Numerous metastatic lesions throughout the bones. 2. Nodular opacities in the upper lobes, consider follow-up CT in 1-3 months. -------- FINAL REPORT -------- Dictated By: Roula Macario Dictated Date: 05/16/2025 14:27 ET Assigned Physician: Roula Macario Reviewed and Electronically Signed By: Roula Macario Signed Date: 05/16/2025 14:48 ET Workstation ID: [id number] Transcribed By: Self Edit Transcribed Date: 05/16/2025 14:41 ET XR Humerus 2+ Views Right Result Date: 05/16/2025 INDICATION: Bone lesion, hemorrhage, malignancy suspected FINDINGS: Minimum of 2 views of the righthumerus were obtained. No prior studies are available for comparison. No fracture or dislocation. No periosteal reaction or radiopaque foreign body. No significant soft tissue abnormality. No lytic or sclerotic lesions. Postoperative changes overlying the right humeral head with 2 metallic anchors.Degenerative changes. Degenerative and postoperative changes without acute bony abnormality. -------- FINAL REPORT -------- Dictated By: Gladis Mcgovern Dictated Date: 05/16/2025 09:24 ET Assigned Physician: Zhou Mcgovernviewed and Electronically Signed By: Gladis Mcgovern Signed Date: 05/16/2025 09:25 ET Workstation ID: [id number] Transcribed By: Self Edit Transcribed Date: 05/16/2025 09:24 ET XR Chest 1 View Result Date: 05/16/2025 XR CHEST 1 VIEW INDICATION: Heart failure, shortness of breath TECHNIQUE: XR CHEST 1 VIEW COMPARISON: 03/25/2021. FINDINGS/IMPRESSION: No pneumonia or pulmonary edema. No pleural effusion or pneumothorax. Cardiac silhouette is mildly enlarged. Bones are similar compared to 2020 with rotator cuff repair bone anchors noted at the right proximal humerus. S-shaped thoracolumbar scoliosis with degenerative changes seen throughout the spine. -------- FINAL REPORT -------- Dictated By: CHIDI PATEL Dictated Date: 05/16/2025 08:51 ET Assigned Physician: CHIDI PATEL Reviewed and Electronically Signed By: CHIDI PTAEL Signed Date: 05/16/2025 08:53 ET Workstation ID: [id number] Transcribed By: Self Edit Transcribed Date: 05/16/2025 08:[address] Head wo Contrast Result Date: 05/15/2025 INDICATION: Mental status change, unknown cause CT head without contrast. COMPARISON: None provided. FINDINGS: The visualized paranasal sinuses are clear. The mastoid air cells are clear. No calvarial fracture. Atherosclerotic intracranial vasculature. No evidence for mass or mass effect. No intracranial hemorrhage or abnormal extra-axial fluid collection. No CT evidence of acute infarct. The ventricles are proportional with the degree of mild global cerebral volume loss without evidence of hydrocephalus. Basilar cisterns are patent. There are periventricular areas of low attenuation compatible with mild white matter small vessel disease. Posterior fossa appears unremarkable. 1. No acute intracranial findings. This document has been electronically signed by: Edvin Bah 05/15/2025 20:01:27 Lab Results Component Value Date INR 1.6 05/31/2025 INR 1.2 05/28/2025 INR 1.2 05/25/2025 Lab Results Component Value Date NA 145 06/05/2025 K 3.2 (L) 06/05/2025 CL 110 06/05/2025 CO2 28 06/05/2025 GLUCOSE 123 (H) 06/05/2025 BUN 20 06/05/2025 CREATININE 2.95 (H) 06/05/2025 CALCIUM 7.6 (L) 06/05/2025 PROT 6.2 05/30/2025 ALBUMIN 2.4 (L) 06/04/2025 BILITOT 0.3 05/30/2025 AST 45 (H) 05/30/2025 ALT 14 05/30/2025 URICACID 3.0 (L) 05/15/2025 PHOS 1.5 (L) 06/02/2025 MG 1.9 06/05/2025 ALKPHOS 195 (H) 05/30/2025 EGFR 16 (L) 06/05/2025 Lab Results Component Value Date WBC 10.0 06/05/2025 HGB 7.7 (L) 06/05/2025 HGB 7.7 (L) 06/05/2025 HCT 25.5 (L) 06/05/2025 HCT 25.5 (L) 06/05/2025 MCV 92.7 06/05/2025 PLT 206 06/05/2025 No results found for this or any previous visit (from the past week). * Cannot find OR log * Imaging: Vascular US duplex upper extremity venous right Narrative: STUDY: VAS US DUPLEX UPPER EXT VENOUS RIGHT COMPARISON: None INDICATION: right upper extremity swelling/pain TECHNIQUE: Multiple sonographic images of the right upper extremity were obtained with and without color flow interrogation and spectral duplex waveform analysis. FINDINGS: On the right, the visualized internal jugular vein demonstrates color flow, normal phasic waveforms, and compressibility. The visualized subclavian vein demonstrates color flow and phasic waveforms. Color flow is demonstrated within the visualized axillary vein. The brachial veins demonstrates color flow, phasic waveforms and compressibility. Thrombus seen in the right cephalic vein in the upper forearm. Basilic vein not visualized. Impression: Thrombus seen in the right cephalic vein in the upper forearm. No deep venous thrombosis. -------- FINAL REPORT -------- Dictated By: Roula Macario Dictated Date: 05/30/2025 16:07 ET Assigned Physician: Roula Macario Reviewed and Electronically Signed By: Roula Macario Signed Date: 05/30/2025 16:08 ET Workstation ID: [id number] Transcribed By: Self Edit Transcribed Date: 05/30/2025 16:07 ET Follow-Up Instructions and Recommendations [address] [phone] Peyman Boss MD [address] [place] [id number] Follow up Dhaval Joseph MD [address] [facility] [phone] [place] [address] [place] [phone] Follow up More than 30 minutes spent on the discharge summary. documented in this encounter Medications at Time of Discharge acetaminophen (TYLENOL) 325 mg tablet Take 2 tablets (650 mg total) by mouth every 6 (six) hours if needed. cholecalciferol (VITAMIN D-3) 50 mcg (2,000 unit) capsule Take by mouth. fluticasone propionate (FLONASE) 50 mcg/actuation nasal spray 2 Sprays by Each Nare route daily. gabapentin (NEURONTIN) 100 mg capsule Take 1 capsule (100 mg total) by mouth. metoprolol tartrate (LOPRESSOR) 50 mg tablet Take 1 tablet (50 mg total) by mouth 2 (two) times a day. 5 06/05/20 26 midodrine (PROAMATINE) 10 mg tablet Take 1 tablet (10 mg total) by mouth 3 (three) times a day before meals. To hold if SBP>120 5 07/05/20 25 multivitamin tablet Take 1 tablet by mouth 1 (one) time each day. OLANZapine (ZyPREXA ZYDIS) 5 mg disintegrating tabletIndications:I schemic cardiomyopathy Take 1 tablet (5 mg total) by mouth 2 (two) times a day if needed (delirium). 5 07/05/20 25 pantoprazole (PROTONIX) 40 mg EC tablet Take 1 tablet (40 mg total) by mouth 2 (two) times a day. Do not crush, chew, or split. 5 08/04/20 25 polyethylene glycol (MIRALAX) 17 gram packet Take 17 g by mouth 1 (one) time each day if needed for constipation for up to 3 days. 5 06/08/20 25 potassium chloride (KLOR-CON M10) 10 mEq CR tablet Take 2 tablets (20 mEq total) by mouth 1 (one) time each day. Rocklatan 0.02-0.005 % drops Administer 1 drop into both eyes 1 (one) time each day in the evening. 5 rosuvastatin (CRESTOR) 40 mg tablet Take 40 mg by mouth daily. tamoxifen (NOLVADEX) 20 mg chemo tablet Take 1 tablet (20 mg total) by mouth 1 (one) time each day Take with water or any other nonalcoholic drink with or without food at around the same time(s) every day. 10/1606/06/20 tamsulosin (FLOMAX) 0.4 mg 24 hr capsule Take 1 capsule (0.4 mg total) by mouth. thiamine (VITAMIN B-1) 100 mg tablet Take 1 tablet (100 mg total) by mouth 1 (one) time each day. documented as of this encounter Ordered Prescriptions Prescription Sig Dispense Quantity Refills Last Filled Start Date End Date pantoprazole (PROTONIX) 40 mg EC tablet Take 1 tablet (40 mg total) by mouth 2 (two) times a day. Do not crush, chew, or split. 5 08/04/20 thiamine (VITAMIN B-1) 100 mg tablet Take 1 tablet (100 mg total) by mouth 1 (one) time each day. tamoxifen (NOLVADEX) 20 mg chemo tablet Take 1 tablet (20 mg total) by mouth 1 (one) time each day Take with water or any other nonalcoholic drink with or without food at around the same time(s) every day. 06/06/20 polyethylene glycol (MIRALAX) 17 gram packet Take 17 g by mouth 1 (one) time each day if needed for constipation for up to 3 days. 06/08/20 OLANZapine (ZyPREXA ZYDIS) 5 mg disintegrating tabletIndications:I schemic cardiomyopathy Take 1 tablet (5 mg total) by mouth 2 (two) times a day if needed (delirium). 5 07/05/20 25 multivitamin tablet Take 1 tablet by mouth 1 (one) time each day. midodrine (PROAMATINE) 10 mg tablet Take 1 tablet (10 mg total) by mouth 3 (three) times a day before meals. To hold if SBP>120 5 07/05/20 metoprolol tartrate (LOPRESSOR) 50 mg tablet Take 1 tablet (50 mg total) by mouth 2 (two) times a day. 5 06/05/20 documented in this encounter Discharge Disposition Disposition Code Departure Means Destination Comment s [facility] documented in this encounter Progress Notes * Farnaz Loya RN - 06/05/2025 5:41 PM EDT Patient ready for discharge, VSS, left upper arm midline removed. 15cm in length. Vaseline pressuredressing applied. Patient discharged to [facility] via ambulance * DIMAS Mota - 06/05/2025 5:14 PM EDT Discharge: 06/05/25 1714 Transportation Transportation at discharge [facility]ulance [facility] providing transportation [facility] What day is the transport expected? 06/05/25 What time is the transport expected? 1700 Final Discharge Disposition [facility] ([facility]) Patient and daughter Maggie in agreement with discharge. 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 DAVON: 06/06/25 Barriers: HD cath removal Disposition: SNF- [facility] This magazine writer spoke with HCP Maggie. She is aware and in agreement with plan. Transportation to SNF will be arranged following cath removal with IR. community services manager will remain available to assess, support, provide advocacy and assist with discharge planning as appropriate. * Kia Le MD - 06/05/2025 2:29 PM EDT Images from the original note were not included. GAUTAM PROGRESS NOTE Date: 06/05/2025 Author: Kia Le MD Patient ID: Chayito Klein is a 79 y.o. female : 1945 MR#: [id number] 05/15/2025 SUBJECTIVE Patient seen and examined at bedside today. Along with historic interpreter José Miguel . Patient doingwell no overnight events. Discussed with nephrology and patient would not need dialysis further will take out the dialysis catheter. Scheduled Medications PRN Medications IV Medications acetaminophen, 1,000 mg, q8h EMIYL [Held by provider] apixaban, 2.5 mg, BID fluticasone propionate, 2 spray, Daily metoprolol tartrate, 50 mg, BID midodrine, 10 mg, TID AC multivitamin, 1 each, Daily perflutren lipid microsphere (DEFINITY) 1.3 mL in sodium chloride 0.9% 8.7 mL injection, 10 mL, Once in imaging rosuvastatin, 10 mg, Nightly [Held by provider] sacubitriL-valsartan, 1 tablet, BID sodium chloride, 10 mL, BID spironolactone, 12.5 mg, Daily tamoxifen, 20 mg, Daily thiamine, 100 mg, Daily dextrose 50%, 12.5 g, q15 min PRN dextrose 50%, 25 g, q15 min PRN dextrose, 15 g, q15 min PRN dextrose, 30 g, q15 min PRN glucagon injection, 1 mg, Once PRN LORazepam, 1 mg, q6h PRN LORazepam, 0.5 mg, Once PRN metoprolol tartrate, 2.5 mg, q4h PRN naloxone, 0.04 mg, PRN OLANZapine, 5 mg, BID PRN oxyCODONE, 5 mg, q4h PRN polyetheylene glycol, 17 g, Daily PRN sodium chloride, 100 mL, q5 min PRN sodium chloride, 10 mL, PRN sodium chloride, 42 mL/hr, PRN sodium chloride, 42 mL/hr, PRN OBJECTIVE Vitals: 06/05/25 0557 06/05/25 0633 06/05/25 0751 06/05/25 1128 BP: 106/52 131/62 126/65 BP Location: Left arm Left arm Patient Position: Lying Lying Pulse: 90 77 86 Resp: 16 18 Temp: 36.5 ??C (97.7 ??F) 36.8 ??C (98.2 ??F) TempSrc: Temporal Temporal SpO2: 100% 100% Weight: 58.7 kg (129 lb 6.4 oz) Height: Intake/Output Summary (Last 24 hours) at 06/05/2025 1429 Last data filed at 06/04/2025 2030 Gross per 24 hour Intake 150 ml Output 250 ml Net -100 ml Wt Readings from Last 1 Encounters: 06/05/25 0557 58.7 kg (129 lb 6.4 oz) 06/04/25 0607 58.7 kg (129 lb 4.8 oz) 06/03/25 0530 58.8 kg (129 lb 9.6 oz) 06/02/25 0532 64.4 kg (141 lb 14.4 oz) 05/28/25 0600 81.5 kg (179 lb 10.8 oz) 05/26/25 1310 67.1 kg (148 lb) 05/25/25 0751 67.5 kg (148 lb 13 oz) 05/25/25 0600 67.5 kg (148 lb 13 oz) 05/24/25 1600 65.5 kg (144 lb 6.4 oz) 05/23/25 1225 62.2 kg (137 lb 1.6 oz) 05/15/25 2257 48.6 kg (107 lb 3.2 oz) 05/15/25 1749 49.9 kg (110 lb) PHYSICAL EXAM: Gen: Chronically ill-appearing alert but disoriented and confused, CV -RRR no MGR Lungs -diminished air entry at the bases Abd - Soft, non-tender, non-distended Extremities -right upper extremity hematoma Dry skin and lower extremities Neuro -alert but disoriented very anxious RESULTS: CBC BMP Results from last 7 days Lab Units 06/05/25 0529 06/04/25205406/04/25 0555 06/03/25212006/03/25 0513 06/02/25 2018 06/02/25 0553 WBC AUTO K/mcL 10.0 -- 10.7 -- 8.9 -- 9.4 HEMOGLOBIN g/dL 7.7* 7.7* 8.1* 8.0* 8.0* 8.4* 7.7* 7.7* < > 7.9* 7.9* HEMATOCRIT % 25.5* 25.5* 26.5* 25.9* 25.9* 27.2* 24.4* 24.4* < > 25.4* 25.4* PLATELETS K/mcL 206 -- 202 -- 168 -- 167 LYMPHS PCT AUTO % 17.6 -- 12.9 -- 14.4 -- 13.2 MONO PCT AUTO % 9.9 -- 10.3 -- 9.6 -- 7.8 EOS PCT AUTO % 2.5 -- 2.0 -- 2.7 -- 2.4 < > = values in this interval not displayed. Results from last 7 days Lab Units 06/05/25 0529 06/04/25 0555 06/03/25 0513 06/02/25 0553 06/01/25 0508 05/31/25 0307 05/30/25 0612 SODIUM mmol/L 145 144 144 141 < > 141 140 POTASSIUM mmol/L 3.2* 3.7 3.4* 3.7 < > 3.2* 3.1* CHLORIDE mmol/L 110 108 107 104 < > 102 101 CO2 mmol/L 28 28 30 31 < > 34* 31 ANION GAP 7 8 7 6 < > 5 8 BUN mg/dL 20 19 17 15 < > 17 28* CREATININE mg/dL 2.95* 2.85* 2.22* 1.81* < > 2.29* 3.55* CALCIUM mg/dL 7.6* 7.8* 7.7* 7.7* < > 7.6* 8.0* MAGNESIUM mg/dL 1.9 2.3 1.8* 2.0 < > 1.8* 2.1 PHOSPHORUS mg/dL -- -- -- 1.5* -- 2.0* 3.2 < > = values in this interval not displayed. Results from last 7 days Lab Units 06/05/25 1129 06/05/25 0750 06/05/25 0529 06/05/25 0407 06/05/25 0401 POCT GLUCOSE mg/dL 123* 67* -- 99 <10* GLUCOSE mg/dL -- -- 84 -- -- Results from last 7 days Lab Units 05/30/25 0612 AST unit/L 45* ALT unit/L 14 No results found for this or any previous visit (from the past week). Imaging: Vascular US duplex upper extremity venous right Narrative: STUDY: VAS US DUPLEX UPPER EXT VENOUS RIGHT COMPARISON: None INDICATION: right upper extremity swelling/pain TECHNIQUE: Multiple sonographic images of the right upper extremity were obtained with and without color flow interrogation and spectral duplex waveform analysis. FINDINGS: On the right, the visualized internal jugular vein demonstrates color flow, normal phasic waveforms, and compressibility. The visualized subclavian vein demonstrates color flow and phasic waveforms. Color flow is demonstrated within the visualized axillary vein. The brachial veins demonstrates color flow, phasic waveforms and compressibility. Thrombus seen in the right cephalic vein in the upper forearm. Basilic vein not visualized. Impression: Thrombus seen in the right cephalic vein in the upper forearm. No deep venous thrombosis. -------- FINAL REPORT -------- Dictated By: Roula Macario Dictated Date: 05/30/2025 16:07 ET Assigned Physician: Roula Macario Reviewed and Electronically Signed By: Roula Maacrio Signed Date: 05/30/2025 16:08 ET Workstation ID: [id number] Transcribed By: Self Edit Transcribed Date: 05/30/2025 16:07 ET ASSESSMENT & PLAN 79-year-old Ecuadorean-speaking female with PMH breast cancer follows with Dr. Joseph, hypertension, leukemia, HFrEF, COPD, paroxysmal atrial fibrillation Eliquis downgraded from the ICU on 05/29/2025. Patient admitted on 05/15/2025. Patient with metastatic disease from her breast cancer. Acute blood loss anemia Questionable acute colonic ischemia worsened by chronic anticoagulation Received 2 units of blood on 05/31/2025. Hemoglobin remained stable Patient seen by GI Patient did not undergo EGD. Eliquis has been held. Hemoglobin remained stable. Continue with PPI. Acute metabolic encephalopathy on admission seems to have resolved at this time. Hypercalcemia resolved ZEN/ATN leading to end-stage renal disease started on hemodialysis Status post tunneled catheter placement on 05/27/2025 first hemodialysis on 05/28/2025 No obstruction seen by CT scan. Hypercalcemia due to metastatic breast CA Continue to follow renal recommendations Hypercalcemia resolved Dialysis catheter to be removed today by IR. Per nephrology no further dialysis required. Hold MRA, ARB-NI upon DC A-fib with RVR with improved heart rates on metoprolol Patient also on amiodarone which has been discontinued by cardiology. Metoprolol dose changed to 50mg twice daily average heart rates at rest should be less than 110 Eliquis to be held Echo showed EF of 30 to 35% with mild to moderate MR and moderate TR Hypotension seems to be getting better. Will be on midodrine as needed for low blood pressure. HFrEF: Per renal to hold Entresto and spironolactone on discharge. Hypokalemia and hypomagnesemia: will replete today , potassium levels low again. UTI completed treatment Metastatic breast cancer -diagnosed in 2020, s/p partial mastectomy right, declined adjuvant radiation. Had bone scan in outpatient which showed multiplie bone mets. Underwent bone biopsy on 05/20, path revealed breast canceras primary, MM workup was negative. -Dr. Joseph was consulted during admission, continues on tamoxifen (letrozole was discontinued). Right upper extremity hematoma noted. Ultrasound shows thrombus in the right cephalic vein in the upper forearm Hyperlipidemia on statin PT evaluation recommending rehab Nutrition consult DVT Prophylaxis Eliquis (holding it) Full Code - Confirmed Dr. Joseph discussed at length with the daughter regarding goals of care. Please refer to his note. Patient to remain a full code at this time. PT evaluation done and recommending rehab Dialysis catheter to be pulled out today by IR. Patient to be discharged to rehab. Likely in the next 24 hours. * Carlos Alberto Islas MD - 06/05/2025 10:02 AM EDT Images from the original note were not included. Progress Note CHIEF COMPLAINT F/u ZEN SUBJECTIVE Seen and examined D/w medical attending No complaints MEDICAL HISTORY Medical History[1] MEDICATIONS MEDSSCHEDULED[2] MEDSPRN[3] MEDSCONTINUOUS[4] OBJECTIVE Vital signs in last 24 hours: Visit Vitals BP 131/62 (BP Location: Left arm, Patient Position: Lying) Pulse 77 Temp 36.5 ??C (97.7 ??F) (Temporal) Resp 16 Intake/Output last 24 hours: Intake/Output Summary (Last 24 hours) at 06/05/2025 1002 Last data filed at 06/04/20252029 Gross per 24 hour Intake 150 ml Output 250 ml Net -100 ml Weights: Admission Weight: Weight: 49.9 kg (110 lb) Wt Readings from Last 3 Encounters: 06/05/25 58.7 kg (129 lb 6.4 oz) 01/30/25 66.2 kg (146 lb) 07/24/24 68 kg (150 lb) Physical Exam: General: No acute distress HEENT: Normocephalic, atraumatic, anicteric Cardiovascular: S1 S2 normal Respiratory: unlabored Gl: soft non-distended Extremities: No cyanosis Neurological: Alert Integumentary: no rash Psych: Calm, cooperative LABS Results from last 7 days Lab Units 06/05/2552806/04/25205406/04/2555406/03/25212006/03/25512 WBC AUTO K/mcL 10.0 -- 10.7 -- 8.9 HEMOGLOBIN g/dL 7.7* 7.7* 8.1* 8.0* 8.0* < > 7.7* 7.7* HEMATOCRIT % 25.5* 25.5* 26.5* 25.9* 25.9* < > 24.4* 24.4* MCV FL 92.7 -- 90.9 -- 88.7 PLATELETS K/mcL 206 -- 202 -- 168 < > = values in this interval not displayed. Results from last 7 days Lab Units 06/05/2552806/04/2555406/03/25512 CREATININE mg/dL 2.95* 2.85* 2.22* BUN mg/dL 20 19 17 SODIUM mmol/L 145 144 144 POTASSIUM mmol/L 3.2* 3.7 3.4* CHLORIDE mmol/L 110 108 107 CO2 mmol/L 28 28 30 Phosphorus Date Value Ref Range Status 06/02/2025 1.5 (L) 2.5 - 4.5 mg/dL Final 05/31/2025 2.0 (L) 2.5 - 4.5 mg/dL Final 05/30/2025 3.2 2.5 - 4.5 mg/dL Final Vitamin D, 1, 25-Dihydroxy Date Value Ref Range Status 05/24/2025 19 (L) 20 - 79 pg/mL Final Comment: Vitamin D 1, 25 dihydroxy levels should be primarily used to assess Vitamin D status in patients with renal disease and hypercalcemia. Vitamin D 1,25-dihydroxy levels are generally less than 5 pg/mL in end stage renal disease patients. The preferred initial test for assessing Vitamin D status in the general population is Vitamin D 25-hydroxy (VITD). Test performed at [facility], [address] , [place] [address] Rozina Peterson MD, PhD - Trailer Technician PTH Date Value Ref Range Status 05/16/2025 9.7 (L) 18.5 - 88.0 pcg/mL Final No results found for: IRON , TIBC , FERRITIN No results found for: COLORUA , CLARITYUA , SPECGRAVUA , PHUA , PROTUA , GLUCOSEUA , KETONESUA , BILIRUBINUA , BLOODUA , UROBILINOGUA , NITRITEUA IMPRESSION and PLAN ZEN Hypokalemia HFrEF Metastatic breast CA Scr up by 0.1 mg/dl over the last 24 hours First HD on 05/28 S/p tunneled catheter placement on 05/27 ZEN due to acute tubular injury HD dependent Hypotensive earlier No obstruction by CT scan Not c/w contrast nephropathy Hypercalcemia due to metastatic breast CA Baseline creatinine is 0.7-0.8 mg/dl LVEF 30-35% REC No need for further HD DC dialysis tunneled catheter Replace K (20 meq po x 1) Hold MRA, ARB-NI upon DC Goals of care discussion Follow kidney function and electrolytes O/p renal f/u Carlos Alberto Islas MD [1] History reviewed. No pertinent past medical history. [2] acetaminophen, 1,000 mg, oral, q8h EMILY [Held by provider] apixaban, 2.5 mg, oral, BID fluticasone propionate, 2 spray, Each Nostril, Daily metoprolol tartrate, 50 mg, oral, BID midodrine, 10 mg, oral, TID AC multivitamin, 1 each, oral, Daily perflutren lipid microsphere (DEFINITY) 1.3 mL in sodium chloride 0.9% 8.7 mL injection, 10 mL, intravenous, Once in imaging rosuvastatin, 10 mg, oral, Nightly [Held by provider] sacubitriL-valsartan, 1 tablet, oral, BID sodium chloride, 10 mL, intravenous, BID spironolactone, 12.5 mg, oral, Daily tamoxifen, 20 mg, oral, Daily thiamine, 100 mg, oral, Daily [3] PRN medications: dextrose 50%, dextrose 50%, dextrose, dextrose, glucagon injection, LORazepam,LORazepam, metoprolol tartrate, naloxone, OLANZapine, oxyCODONE, polyetheylene glycol, sodium chloride, Insert peripheral IV AND Maintain IV access AND Saline lock IV AND sodium chloride AND sodium chloride, sodium chloride, sodium chloride [4] * Tammy Hanson RN - 06/04/2025 6:45 PM EDT F/C discontinued per MD order at 1330, pt was incontinent times one unmeasured amount. Bladder scanned at 1840 for 61 ml. Pt appetite has been adequate eating approximately 75% of meals. * Kia Le MD - 06/04/2025 1:54 PM EDT Images from the original note were not included. GAUTAM PROGRESS NOTE Date: 06/04/2025 Author: Kia Le MD Patient ID: Chayito Klein is a 79 y.o. female : 1945 MR#: [id number] 05/15/2025 SUBJECTIVE Patient seen and examined at bedside today. Along with historic interpreter José Miguel . Patient ate almost all of her breakfast. No overnight issues doing fine. Scheduled Medications PRN Medications IV Medications acetaminophen, 1,000 mg, q8h EMILY [Held by provider] apixaban, 2.5 mg, BID fluticasone propionate, 2 spray, Daily metoprolol tartrate, 25 mg, q6h midodrine, 10 mg, TID AC multivitamin, 1 each, Daily perflutren lipid microsphere (DEFINITY) 1.3 mL in sodium chloride 0.9% 8.7 mL injection, 10 mL, Once in imaging rosuvastatin, 10 mg, Nightly sodium chloride, 10 mL, BID tamoxifen, 20 mg, Daily thiamine, 100 mg, Daily dextrose 50%, 12.5 g, q15 min PRN dextrose 50%, 25 g, q15 min PRN dextrose, 15 g, q15 min PRN dextrose, 30 g, q15 min PRN glucagon injection, 1 mg, Once PRN LORazepam, 1 mg, q6h PRN LORazepam, 0.5 mg, Once PRN metoprolol tartrate, 2.5 mg, q4h PRN naloxone, 0.04 mg, PRN OLANZapine, 5 mg, BID PRN oxyCODONE, 5 mg, q4h PRN polyetheylene glycol, 17 g, Daily PRN sodium chloride, 100 mL, q5 min PRN sodium chloride, 10 mL, PRN sodium chloride, 42 mL/hr, PRN sodium chloride, 42 mL/hr, PRN OBJECTIVE Vitals: 06/04/25 0651 06/04/25 0737 06/04/25 1213 06/04/25 1215 BP: 130/76 113/74 136/68 BP Location: Left arm Patient Position: Lying Pulse: 83 99 90 70 Resp: 18 Temp: 36.3 ??C (97.4 ??F) 36.4 ??C (97.5 ??F) TempSrc: Temporal Oral SpO2: 100% 100% 100% Weight: Height: Intake/Output Summary (Last 24 hours) at 06/04/2025 1354 Last data filed at 06/04/2025 0800 Gross per 24 hour Intake -- Output 1250 ml Net -1250 ml Wt Readings from Last 1 Encounters: 06/04/25 0607 58.7 kg (129 lb 4.8 oz) 06/03/25 0530 58.8 kg (129 lb 9.6 oz) 06/02/25 0532 64.4 kg (141 lb 14.4 oz) 05/28/25 0600 81.5 kg (179 lb 10.8 oz) 05/26/25 1310 67.1 kg (148 lb) 05/25/25 0751 67.5 kg (148 lb 13 oz) 05/25/25 0600 67.5 kg (148 lb 13 oz) 05/24/25 1600 65.5 kg (144 lb 6.4 oz) 05/23/25 1225 62.2 kg (137 lb 1.6 oz) 05/15/25 2257 48.6 kg (107 lb 3.2 oz) 05/15/25 1749 49.9 kg (110 lb) PHYSICAL EXAM: Gen: Chronically ill-appearing alert but disoriented and confused, CV -RRR no MGR Lungs -diminished air entry at the bases Abd - Soft, non-tender, non-distended Extremities -right upper extremity hematoma Dry skin and lower extremities Neuro -alert but disoriented very anxious RESULTS: CBC BMP Results from last 7 days Lab Units 10/14/25 0555 06/03/25212006/03/25 0513 06/02/25 2018 06/02/25 0553 06/01/25201306/01/25 0508 WBC AUTO K/mcL 10.7 -- 8.9 -- 9.4 -- 8.9 HEMOGLOBIN g/dL 8.0* 8.0* 8.4* 7.7* 7.7* 7.9* 7.9* 7.9* < > 8.0* 8.0* HEMATOCRIT % 25.9* 25.9* 27.2* 24.4* 24.4* 25.0* 25.4* 25.4* < > 24.2* 24.2* PLATELETS K/mcL 202 -- 168 -- 167 -- 143 LYMPHS PCT AUTO % 12.9 -- 14.4 -- 13.2 -- 13.8 MONO PCT AUTO % 10.3 -- 9.6 -- 7.8 -- 8.1 EOS PCT AUTO % 2.0 -- 2.7 -- 2.4 -- 2.8 < > = values in this interval not displayed. Results from last 7 days Lab Units 06/04/25 0555 06/03/25 0513 06/02/25 0553 06/01/25 0508 05/31/25 03005/30/25 0612 05/29/25 0504 SODIUM mmol/L 144 144 141 143 141 140 133 POTASSIUM mmol/L 3.7 3.4* 3.7 2.9* 3.2* 3.1* 3.5 CHLORIDE mmol/L 108 107 104 106 102 101 95* CO2 mmol/L 28 30 31 30 34* 31 30 ANION GAP 8 7 6 7 5 8 8 BUN mg/dL 19 17 15 26* 17 28* 26* CREATININE mg/dL 2.85* 2.22* 1.81* 2.82* 2.29* 3.55* 2.98* CALCIUM mg/dL 7.8* 7.7* 7.7* 7.5* 7.6* 8.0* 8.0* MAGNESIUM mg/dL 2.3 1.8* 2.0 1.7* 1.8* 2.1 2.1 PHOSPHORUS mg/dL -- -- 1.5* -- 2.0* 3.2 3.0 Results from last 7 days Lab Units 06/04/25 1212 06/04/25 0757 06/04/25 0555 06/04/25 0055 06/03/25 2108 POCT GLUCOSE mg/dL 98 91 -- 113* 156* GLUCOSE mg/dL -- -- 95 -- -- Results from last 7 days Lab Units 05/30/25 0612 AST unit/L 45* ALT unit/L 14 No results found for this or any previous visit (from the past week). Imaging: Vascular US duplex upper extremity venous right Narrative: STUDY: VAS US DUPLEX UPPER EXT VENOUS RIGHT COMPARISON: None INDICATION: right upper extremity swelling/pain TECHNIQUE: Multiple sonographic images of the right upper extremity were obtained with and without color flow interrogation and spectral duplex waveform analysis. FINDINGS: On the right, the visualized internal jugular vein demonstrates color flow, normal phasic waveforms, and compressibility. The visualized subclavian vein demonstrates color flow and phasic waveforms. Color flow is demonstrated within the visualized axillary vein. The brachial veins demonstrates color flow, phasic waveforms and compressibility. Thrombus seen in the right cephalic vein in the upper forearm. Basilic vein not visualized. Impression: Thrombus seen in the right cephalic vein in the upper forearm. No deep venous thrombosis. -------- FINAL REPORT -------- Dictated By: Roula Macario Dictated Date: 05/30/2025 16:07 ET Assigned Physician: Roula Macario Reviewed and Electronically Signed By: Roula Macario Signed Date: 05/30/2025 16:08 ET Workstation ID: [id number] Transcribed By: Self Edit Transcribed Date: 05/30/2025 16:07 ET ASSESSMENT & PLAN 79-year-old Ecuadorean-speaking female with PMH breast cancer follows with Dr. Joseph, hypertension, leukemia, HFrEF, COPD, paroxysmal atrial fibrillation Eliquis downgraded from the ICU on 05/29/2025. Patient admitted on 05/15/2025. Patient with metastatic disease from her breast cancer. Acute blood loss anemia Questionable acute colonic ischemia worsened by chronic anticoagulation Received 2 units of blood on 05/31/2025. Hemoglobin remained stable Patient seen by GI Patient did not undergo EGD as a daughter did not want to go ahead with that. She wanted to wait and see if any further bleeding then would happen done. Continue with IV PPI twice daily . To monitor the H&H. Acute metabolic encephalopathy on admission seems to have resolved at this time. Hypercalcemia ZEN/ATN leading to end-stage renal disease started on hemodialysis Status post tunneled catheter placement on 05/27/2025 first hemodialysis on 05/28/2025 No obstruction seen by CT scan. Hypercalcemia due to metastatic breast CA Continue to follow renal recommendations Hypercalcemia resolved To hold off on dialysis for now per renal Continue to monitor creatinine to see if the patient will need dialysis later. A-fib with RVR with improved heart rates on metoprolol Patient also on amiodarone which has been discontinued by cardiology. Metoprolol was decreased to 25 mg 4 times a day again because of low blood pressure. Average heart rates at rest should be less than 110 Eliquis to be held Echo showed EF of 30 to 35% with mild to moderate MR and moderate TR Hypotension continues , Florinef was restarted and patient continues to be on midodrine, will DC her Florinef and increase midodrine if needed for blood pressure control. HFrEF: Likely to restart her Entresto and spironolactone now that blood pressure is better. Hypokalemia and hypomagnesemia: will replete today , potassium levels better today. UTI completed treatment Metastatic breast cancer -diagnosed in 2020, s/p partial mastectomy right, declined adjuvant radiation. Had bone scan in outpatient which showed multiplie bone mets. Underwent bone biopsy on 05/20, path revealed breast canceras primary, MM workup was negative. -Dr. Joseph was consulted during admission, continues on tamoxifen (letrozole was discontinued). Right upper extremity hematoma noted. Ultrasound shows thrombus in the right cephalic vein in the upper forearm Hyperlipidemia on statin PT evaluation recommending rehab Nutrition consult DVT Prophylaxis Eliquis (holding it) Full Code - Confirmed Dr. Joseph discussed at length with the daughter regarding goals of care. Please refer to his note. Patient to remain a full code at this time. PT evaluation done and recommending rehab * DIMAS Mota - 06/04/2025 1:45 PM EDT Pellet Post Inspector- CM Progress Note Patient continues to require acute level hospital care. DAVON: 06/06/25 Barriers: 48 hours monitoring renal function Disposition: SNF- referral pending acceptance This magazine writer spoke with primary HCP Maggie, she states she agrees with STR recommendation prior to hermother returning home. community services manager will remain available to assess, support, provide advocacy and assist with discharge planning as appropriate. * Rosamaria Dye RN - 06/04/2025 12:59 PM EDT Images from the original note were not included. Wound Care Subsequent Consult Visit Date: 06/04/2025 Patient Name: Chayito Klein Date of : 1945 Pertinent Labs: Albumin Date Value Ref Range Status 06/04/2025 2.4 (L) 3.2 - 5.0 g/dL Final Albumin, Serum Date Value Ref Range Status 05/15/2025 2.2 (L) 2.9 - 4.1 g/dL Final WBC Date Value Ref Range Status 06/04/2025 10.7 4.8 - 10.8 K/mcL Final WBC, Urine Date Value Ref Range Status 05/24/2025 >4,000 (H) 0 - 4 /HPF Final Hemoglobin A1C Date Value Ref Range Status 05/25/2025 7.6 (H) <6.5 % Final Glucose POCT Date Value Ref Range Status 06/04/2025 98 70 - 100 mg/dL Final Wound Assessment: Wound Pressure Injury 05/27/25 Hip Right (Active) Wound Image Wound Assessment: Healed, applied mepilex for protection 06/04/25 1120 Wound Bed Tissue Assessment Unable to assess 06/04/25 0351 Ivana-Wound Assessment Unable to assess 06/04/25 0351 Wound Length (cm) 2.2 cm 05/31/25 1035 Wound Width (cm) 1.5 cm 05/31/25 1035 Wound Surface Area (cm^2) 2.59 cm^2 05/31/25 1035 Wound Depth (cm) 0.1 cm 05/31/25 1035 Wound Volume (cm^3) 0.173 cm^3 05/31/25 1035 Wound Healing % 69 05/31/25 1035 Treatments Cleansed 05/31/25 1035 Dressing Xeroform;Foam 05/31/25 1035 Dressing Changed Changed 06/04/25 1120 Dressing Status Clean;Dry;Intact 06/04/25 0351 Pressure Injury Stage 2 06/04/25 1120 Wound Moisture Associated Dermatitis 05/31/25 Buttocks (Active) Wound Image Wound Assessment: Almost entirely epithelialized, 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 06/04/25 111 Wound Bed Tissue Assessment [place] 06/04/25 1119 Ivana-Wound Assessment Unable to assess 06/04/25 0203 Wound Length (cm) 6 cm 05/31/25 1029 Wound Width (cm) 7 cm 05/31/25 1029 Wound Surface Area (cm^2) 32.99 cm^2 05/31/25 1029 Wound Depth (cm) 0.1 cm 05/31/25 1029 Wound Volume (cm^3) 2.199 cm^3 05/31/25 1029 Treatments Cleansed 06/01/25 0800 Dressing Xeroform;Foam 06/04/25 1119 Dressing Changed Changed 06/04/25 1119 Dressing Status Clean;Dry;Intact 06/04/25 0203 Pressure Injury Stage 05/31/25 1030 Support Surface: Patient is on Isotour bed with LEAF for assist with turning and repositioning q 2 hr and prn. Heels are intact with waffle boots on. Wound Summary Assessment: see above Wound Plan: Continue current tx with xeroform, allevyn and mepilex 06/04/2025 12:59 PM EDT * Donatus Ironuma - 06/04/2025 12:50 PM EDT SPIRITUAL CARE Date/Time:06/04/25 at 12:50 PM EDT Type of Visit:Follow-up Reason for Visit: Spiritual/Emotional Support Time Spent: 10 Minutes Location: 220/2201 Sacramental Encounters: Spiritual Distress Assessment: Spiritual Assessment/Distress Spiritual Care Assessment: Assessment: During follow up visit, Chayito, was awake, alert, lying down in bed resting. No concernraised. Attending nurse shared prognosis. Prayed for recovery and good health. Intervention: NE Spiritual Care Interventions : provided support Outcomes: expressed gratitude Plan of Care: Visit as needed *Reference: Spiritual Distress Assessment Tool: The SDAT is a clinical tool used by chaplains to identify unmet spiritual and emotional needs that can impact Goals of Care in the following categories: Spiritual Distress Assessment Legend Spiritual Needs Related Questions Meaning Are you having difficulties coping with what is happening to your now? Does your hospitalization have any repercussions on the way you live usually? Transcendence Do you have a particular jew, stella, or spirituality? Is your jew/spirituality/stella challenged by what is happening to you now? Values Do you think that the health professionals caring for you know you well enough? Do you feel that you are participating in the decisions made about your care? Psycho-Social Identity Do you have any worries or difficulties regarding your family or other persons close to you? Do you feel lonely? Do you have links to your stella community? SCALE 0= no evidence of unmet spiritual needs 1= some evidence of unmet spiritual needs 2= substantial evidence of unmet spiritual needs 3= evidence of severe unmet spiritual needs * Jane Li, PT - 06/04/2025 10:45 AM EDT [facility] Physical Therapy Treatment PT Discharge Recommendations: residential facility placement Staff Recommendations for safe patient handling: mod A for bed mobility and sit to stand transfers with the walker Precautions Medical Precautions: Fall Risk Safety Interventions: Telesitter, Side rails up x1, Bed alarm, Call lynch within reach RUE Weight Bearing Status: Full LUE Weight Bearing Status: Full RLE Weight Bearing Status: Full LLE Weight Bearing Status: Full History of Present Illness: Patient is a 79 y.o. female admitted to [facility] on 05/15/2025 with: Problem List[1] Fall prevention education provided including use of call light in hospital, use of appropriate assistive device, safe mobility techniques, and safety measures at home. Continue PT as per POC. Subjective I just want to go to my house Objective 06/04/25 1045 PT Last Visit PT Received On 06/04/25 General Family/Caregiver Present No PT Time Calculation PT Start Time 1045 PT Stop Time 1115 PT Time Calculation (min) 30 min Precautions Medical Precautions Fall Risk RUE Weight Bearing Status Full LUE Weight Bearing Status Full RLE Weight Bearing Status Full LLE Weight Bearing Status Full Vital Signs Patient Identification Yes Oxygen Therapy Oxygen Therapy None (Room air) Pain Assessment Pain Assessment No/denies pain Pain Score 0 - No pain Cognition Overall Cognitive Status Impaired Arousal/Alertness Inconsistent responses to stimuli Orientation Level Disoriented to situation;Disoriented to place Following Commands Follows one step commands without difficulty Static Sitting Balance Static Sitting-Level of Assistance Supervision Static Sitting-Balance Support Feet supported;Left upper extremity supported;Right upper extremity supported Dynamic Sitting Balance Dynamic Sitting-Level of Assistance Minimum assistance Dynamic Sitting-Balance Forward lean Dynamic Sitting-Balance Support Feet supported;Left upper extremity supported;Right upper extremitysupported Static Standing Balance Static Standing-Level of Assistance Moderate assistance Static Standing-Balance Support Left upper extremity supported;Right upper extremity supported Static Standing-Comment/Number of Minutes the pt was better able to weight shift forward and stand with walker but very fearful of falling so sits quickly, needs encouragement to stand Dynamic Standing Balance Dynamic Standing-Comments attempted to have pt take steps. She was able to take 1 step and then lost balance posteriorly Bed Mobility Sitting to Lying Assistance Moderate assistance Lying to Sitting Assistance Moderate assistance Transfers Sit to Stand Assistance Moderate assistance Ambulation Comments unable to amb Procedures Procedures Therapeutic Activity Therapeutic Activity Therapeutic Activity Time Entry 30 Therapeutic Activity 1 th ept appears mildly confused today but able to follow all commands. She was able to get her feet tot he edge of the bed and needed mod A to lift trunk to an upright position.She was then able to attempt sit to stand transfers from the edge of the bed with mod A. With repeated trials the pt was able to progress to a min A level. Once standing she was able to stand with walker and mod A due to posterior lean and tactile cues needed to weight shift forward over the walker. The pt attempted to take steps while standing but is very fearful of falling and will sit suddenlywhen standing . PT Assessment PT Assessment Results Decreased strength;Decreased endurance Prognosis Good Medical Staff Made Aware Yes Plan Treatment/Interventions Functional transfer training;LE strengthening/ROM;Endurance training;Bed mobility;Gait training PT Plan Skilled PT PT Frequency 2-5 days per week PT Discharge Recommendations residential facility placement PT - Evaluation Status Complete Procedure/Treatment: Procedures Procedures: Therapeutic Activity Therapeutic Activity Therapeutic Activity Time Entry: 30 Therapeutic Activity 1: th ept appears mildly confused today but able to follow all commands. She was able to get her feet tot he edge of the bed and needed mod A to lift trunk to an upright position. She was then able to attempt sit to stand transfers from the edge of the bed with mod A. With repeated trials the pt was able to progress to a min A level. Once standing she was able to stand with walker and mod A due to posterior lean and tactile cues needed to weight shift forward over the walker. The pt attempted to take steps while standing but is very fearful of falling and will sit suddenly when standing . Patient left lying supine in bed. RN notified of pt. status, location, response to treatment, and therapy recommendations. Physical Therapy Assessment/Plan PT Assessment PT Assessment Results: Decreased strength, Decreased endurance Prognosis: Good Evaluation/Treatment Tolerance: Patient limited by fatigue Medical Staff Made Aware: Yes Plan Treatment/Interventions: Functional transfer training, LE strengthening/ROM, Endurance training, Bed mobility, Gait training PT Plan: Skilled PT PT Frequency: 2-5 days per week PT Discharge Recommendations: residential facility placement Equipment Recommended: (TBD) PT - Evaluation Status: Complete Physical Therapy Goals/Education Encounter Problems Encounter Problems (Active) Template: Physical Therapy Problem: PT Short Term Goals Dates: Start: 05/21/25 Goal: Patient will transfer safely with min assist Dates: Start: 05/21/25 Expected End: 05/29/25 Goal: Patient will ambulate with rwalker x 20 ft, min assist Dates: Start: 05/21/25 Expected End: 05/28/25 Encounter Problems (Resolved) There are no resolved problems. Education Documentation No documentation found. Education Comments No comments found. Jane Li, PT [1] Patient Active Problem List Diagnosis Cardiomyopathy ([facility] V24, [facility] V28) COPD (chronic obstructive pulmonary disease) [place] [place] [facility] V28) DM2 (diabetes mellitus, type 2) [place] [place] [facility] [place] HTN (hypertension) Hyperlipidemia with target LDL less than 70 Observed sleep apnea Paroxysmal A-fib (CMS/HCC V24, CMS/HCC V28) Tracheal stenosis Malignant neoplasm of overlapping sites of right breast in female, estrogen receptor positive (CMS/HCC V24, CMS/HCC V28) Acute metabolic encephalopathy Hypercalcemia Malignancy (CMS/HCC V24, CMS/HCC V28) Severe protein-calorie malnutrition (CMS/HCC V24) Hypotension * Carlos Alberto Islas MD - 06/04/2025 7:41 AM EDT Images from the original note were not included. Progress Note CHIEF COMPLAINT F/u ZEN SUBJECTIVE Seen and examined Comfortable in bed No complaints MEDICAL HISTORY Medical History[1] MEDICATIONS MEDSSCHEDULED[2] MEDSPRN[3] MEDSCONTINUOUS[4] OBJECTIVE Vital signs in last 24 hours: Visit Vitals BP 113/74 (BP Location: Left arm, Patient Position: Lying) Pulse 99 Temp 36.3 ??C (97.4 ??F) (Temporal) Resp 16 Intake/Output last 24 hours: Intake/Output Summary (Last 24 hours) at 06/04/2025 0741 Last data filed at 06/04/2025 0549 Gross per 24 hour Intake 360 ml Output 1625 ml Net -1265 ml Weights: Admission Weight: Weight: 49.9 kg (110 lb) Wt Readings from Last 3 Encounters: 06/04/25 58.7 kg (129 lb 4.8 oz) 01/30/25 66.2 kg (146 lb) 07/24/24 68 kg (150 lb) Physical Exam: General: No acute distress HEENT: Normocephalic, atraumatic, anicteric Cardiovascular: S1 S2 normal Respiratory: unlabored Gl: soft non-distended Extremities: No cyanosis Neurological: Alert Integumentary: no rash Psych: Calm, cooperative LABS Results from last 7 days Lab Units 06/04/25 0555 06/03/25212006/03/25 0513 06/02/25201706/02/25 0553 WBC AUTO K/mcL 10.7 -- 8.9 -- 9.4 HEMOGLOBIN g/dL 8.0* 8.0* 8.4* 7.7* 7.7* < > 7.9* 7.9* HEMATOCRIT % 25.9* 25.9* 27.2* 24.4* 24.4* < > 25.4* 25.4* MCV FL 90.9 -- 88.7 -- 88.5 PLATELETS K/mcL 202 -- 168 -- 167 < > = values in this interval not displayed. Results from last 7 days Lab Units 06/04/25 0555 06/03/25 0513 06/02/25 0553 CREATININE mg/dL 2.85* 2.22* 1.81* BUN mg/dL 19 17 15 SODIUM mmol/L 144 144 141 POTASSIUM mmol/L 3.7 3.4* 3.7 CHLORIDE mmol/L 108 107 104 CO2 mmol/L 28 30 31 Phosphorus Date Value Ref Range Status 06/02/2025 1.5 (L) 2.5 - 4.5 mg/dL Final 05/31/2025 2.0 (L) 2.5 - 4.5 mg/dL Final 05/30/2025 3.2 2.5 - 4.5 mg/dL Final Vitamin D, 1, 25-Dihydroxy Date Value Ref Range Status 05/24/2025 19 (L) 20 - 79 pg/mL Final Comment: Vitamin D 1, 25 dihydroxy levels should be primarily used to assess Vitamin D status in patients with renal disease and hypercalcemia. Vitamin D 1,25-dihydroxy levels are generally less than 5 pg/mL in end stage renal disease patients. The preferred initial test for assessing Vitamin D status in the general population is Vitamin D 25-hydroxy (VITD). Test performed at [facility], [address], [place] [address] Rozina Peterson MD, PhD - Trailer Technician PTH Date Value Ref Range Status 05/16/2025 9.7 (L) 18.5 - 88.0 pcg/mL Final No results found for: IRON , TIBC , FERRITIN No results found for: COLORUA , CLARITYUA , SPECGRAVUA , PHUA , PROTUA , GLUCOSEUA , KETONESUA , BILIRUBINUA , BLOODUA , UROBILINOGUA , NITRITEUA IMPRESSION and PLAN ZEN HFrEF Metastatic breast CA First HD on 05/28 S/p tunneled catheter placement on 05/27 ZEN due to acute tubular injury HD dependent Hypotensive earlier No obstruction by CT scan Not c/w contrast nephropathy Hypercalcemia due to metastatic breast CA Baseline creatinine is 0.7-0.8 mg/dl LVEF 30-35% REC Continue to hold HD Reassess need for HD on a daily basis Goals of care discussion Follow kidney function and electrolytes Carlos Alberto Islas MD [1] History reviewed. No pertinent past medical history. [2] acetaminophen, 1,000 mg, oral, q8h EMILY [Held by provider] apixaban, 2.5 mg, oral, BID fluticasone propionate, 2 spray, Each Nostril, Daily metoprolol tartrate, 25 mg, oral, q6h midodrine, 10 mg, oral, TID AC multivitamin, 1 each, oral, Daily perflutren lipid microsphere (DEFINITY) 1.3 mL in sodium chloride 0.9% 8.7 mL injection, 10 mL, intravenous, Once in imaging rosuvastatin, 10 mg, oral, Nightly sodium chloride, 10 mL, intravenous, BID tamoxifen, 20 mg, oral, Daily thiamine, 100 mg, oral, Daily [3] PRN medications: dextrose 50%, dextrose 50%, dextrose, dextrose, glucagon injection, LORazepam,LORazepam, metoprolol tartrate, naloxone, OLANZapine, oxyCODONE, polyetheylene glycol, sodium chloride, Insert peripheral IV AND Maintain IV access AND Saline lock IV AND sodium chloride AND sodium chloride, sodium chloride, sodium chloride [4] * Jane Li, PT - 06/03/2025 3:30 PM EDT [facility] Physical Therapy Evaluation & Treatment PT Discharge Recommendations: residential facility placement Staff Recommendations for safe patient handling: Max A for transfers AM-PAC 6 Clicks Scoring Form: Unable: 1 A Lot: 2 A Little: 3 None: 4 How much difficulty does the patient currently have? Turning over in bed (including adjustment of bedclothes, sheets, and blankets) [] [x] [] [] Sitting down on and standing up from a chair with arms (wheelchair, bedside commode etc [] [x] [] [] Moving from lying on back to sitting on the side of the bed [] [x] [] [] How much help from another person does the patient currently need? Moving to and from a bed to a chair ( including a wheelchair) [] [x] [] [] To walk in hospital room [x] [] [] [] Climbing 3-5 steps with a railing [x] [] [] [] Score: score indicates the pt would benefit from STR after acute discharge Precautions Medical Precautions: Fall Risk Safety Interventions: Telesitter, Side rails up x1, Bed alarm, Call lynch within reach RUE Weight Bearing Status: Full LUE Weight Bearing Status: Full RLE Weight Bearing Status: Full LLE Weight Bearing Status: Full Fall prevention education provided including use of call light in hospital, use of appropriate assistive device, safe mobility techniques, and safety measures at home. PT Received On: 06/03/25 PT Start Time: 1530 PT Stop Time: 1600 PT Time Calculation (min): 30 min General Family/Caregiver Present: Yes General Comments: son present for the eval Precautions Medical Precautions: Fall Risk Safety Interventions: Telesitter, Side rails up x1, Bed alarm, Call lynch within reach RUE Weight Bearing Status: Full LUE Weight Bearing Status: Full RLE Weight Bearing Status: Full LLE Weight Bearing Status: Full Cognition Overall Cognitive Status: Within Functional Limits Arousal/Alertness: Appropriate responses to stimuli Orientation Level: (and and O x 3, son states he feels her cognition has returned to baseline) Following Commands: Follows all commands and directions without difficulty Hearing: Intact Vision: Intact Speech: Intact Integumentary: no acute issues noted History of Present Illness: Patient is a 79 y.o. female admitted to [facility] on 05/15/2025. Problem List[1] Medical History[2] Surgical History[3] Social History Home Living Environment: Home Living Type of Home: Apartment Lives With: Alone Home Adaptive Equipment: Cane, Walker - rolling Home Layout: One level Home Access: Elevator, Level entry Prior Function Level of [place]: Independent with mobility and functional transfers Ambulation Status: Household ambulator Receives Help From: Family Indoor Mobility Assistance: Independent Stairs Assistance : Not Applicable Prior Device Use: Cane Do you drive?: No Which is your dominant hand?: Right Prior Function Comments: daughter assisted with adls and mobility General Assessment Coin Purse Framer Services Is an educational interpreter used? : Yes Information Interpreted: (medication assessment) Coin Purse Framer Provider Service: anm Coin Purse Framer Name or Number: [id number] Type of Resource Used: Video remote educational interpreter Length of Time Coin Purse Framer Services Utilized (min): 5 Minutes Communication Needs: Coin Purse Framer (Legal) 06/03/25 1530 PT Last Visit PT Received On 06/03/25 General Family/Caregiver Present Yes General Comments son present for the eval PT Time Calculation PT Start Time 1530 PT Stop Time 1600 PT Time Calculation (min) 30 min Precautions Medical Precautions Fall Risk Safety Interventions Telesitter;Side rails up x1;Bed alarm;Call lynch within reach RUE Weight Bearing Status Full LUE Weight Bearing Status Full RLE Weight Bearing Status Full LLE Weight Bearing Status Full Vital Signs Patient Identification Yes Pain Assessment Pain Assessment No/denies pain Pain Score 0 - No pain Cognition Overall Cognitive Status WFL Arousal/Alertness Appropriate responses to stimuli Orientation Level (and and O x 3, son states he feels her cognition has returned to baseline) Following Commands Follows all commands and directions without difficulty Home Living Type of Home Apartment Lives With Alone Home Adaptive Equipment Cane;Walker - rolling Home Layout One level Home Access Elevator;Level entry Prior Function Level of [place] Independent with mobility and functional transfers Ambulation Status Household ambulator Receives Help From Family Indoor Mobility Assistance Independent Stairs Assistance Not Applicable Prior Device Use Cane Do you drive? No Which is your dominant hand? Right Sensation Light Touch No apparent deficits Proprioception Proprioception No apparent deficits Static Sitting Balance Static Sitting-Level of Assistance Supervision Static Sitting-Balance Support Feet supported;Left upper extremity supported;Right upper extremity supported Dynamic Sitting Balance Dynamic Sitting-Level of Assistance Minimum assistance Dynamic Sitting-Balance Forward lean Dynamic Sitting-Balance Support Feet supported;Left upper extremity supported;Right upper extremitysupported Static Standing Balance Static Standing-Level of Assistance Moderate assistance Static Standing-Balance Support Left upper extremity supported;Right upper extremity supported Dynamic Standing Balance Dynamic Standing-Comments unable to ambulate of move out of [place] Bed Mobility Sitting to Lying Assistance Maximum assistance Sitting to Lying Deficit Assist to lower upper body onto bed;Assist lifting right leg onto bed;Assist lifting left leg onto bed;Assist to position upper body Lying to Sitting Assistance Moderate assistance Lying to Sitting Deficit Assist to push upper body to upright;Assist to scoot to edge of bed;Assistlifting right leg off of bed;Assist lifting left leg off of bed Transfers Sit to Stand Assistance Maximum assistance Sit to Stand Deficit Assist for lift off;Steadying Chair/Bed to Chair/Bed Transfer Assistance Maximum assistance Ambulation Comments attempted ot have the pt take steps with the walker but she was unable to move feet Stairs Reason(s) not performed: Not applicable RUE Assessment RUE Assessment Within Functional Limits LUE Assessment LUE Assessment Within Functional Limits RLE Assessment RLE Assessment Impaired LLE Assessment LLE Assessment Impaired LLE Assessment Comments B LE strength 2/5 PT Assessment PT Assessment Results Decreased strength;Decreased endurance;Impaired balance;Impaired gait;Decreased mobility Prognosis Good Evaluation/Treatment Tolerance Patient limited by fatigue Medical Staff Made Aware Yes Plan Treatment/Interventions Functional transfer training;LE strengthening/ROM;Endurance training;Patient/family training;Bed mobility;Gait training;Balance training PT Plan Skilled PT PT Frequency 2-5 days per week PT Discharge Recommendations residential facility placement PT - Evaluation Status Complete PT Evaluation Time Entry PT Re-Evaluation Time Entry 30 ADDITIONAL COMMENTS: Chart reviewed. RN clears pt for session.Pt seen for re evaluation as she has been upgraded from ICU and is now able to participate in the rx session. Pt agrees to participate and presented in supineupon PT arrival. All lines in place. Gait belt utilized throughout treatment to maximize safety. Medical precautions observed appropriately. Initiated education on the importance of PT, bed mobility safety, Transfer Safety, Ambulation Safety , Therapy Plan of Care, Home Safety, Energy Conservations strategies, and importance of OOB activity . Pt verbalized understanding. EXIT STATUS: Session ended with patient supine , tray table and call light within reach, and RN made aware. Physical Therapy Assessment/Plan Chayito Klein is a 79 y.o. female admitted to [facility] on 05/15/2025 for Hypercalcemia [E83.52] Acute metabolic encephalopathy [G93.41] . Pt presents with decreased BLE strength, balance deficits, decreased activity tolerance, and far below functional baseline. Pt performed bed mobility Maximalassist, HOB elevated, Transfers with Maximal assist, FWW and is unable to amb . Pt will benefit from skilled acute PT during hospital stay to improve the deficits listed above and optimize function. PT recommends residential facility placement when medically stable for safe discharge and to optimize functional mobility and independence. Goals Encounter Problems Encounter Problems (Active) Template: Physical Therapy Problem: PT Short Term Goals Dates: Start: 05/21/25 Goal: Patient will transfer safely with min assist Dates: Start: 05/21/25 Expected End: 05/29/25 Goal: Patient will ambulate with rwalker x 20 ft, min assist Dates: Start: 05/21/25 Expected End: 05/28/25 Goal: PT STG 1 Dates: Start: 06/03/25 Goal: PT STG 2 Dates: Start: 06/03/25 Encounter Problems (Resolved) There are no resolved problems. Education Documentation Mobility Training, taught by Jane Li PT at 06/03/2025 5:00 PM. Learner: Family, Patient Readiness: Acceptance Method: Explanation Response: Verbalizes Understanding Comment: Explained that rehab will be recommended and the pt is in agreement Education Comments No comments found. Jane Li, PT [1] Patient Active Problem List Diagnosis Cardiomyopathy ([facility]/HCC V24, CMS/HCC V28) COPD (chronic obstructive pulmonary disease) ([facility] V24, CMS/HCC V28) DM2 (diabetes mellitus, type 2) ([facility] V24, [facility] V28) HTN (hypertension) Hyperlipidemia with target LDL less than 70 Observed sleep apnea Paroxysmal A-fib (CMS/HCC V24, CMS/HCC V28) Tracheal stenosis Malignant neoplasm of overlapping sites of right breast in female, estrogen receptor positive (CMS/HCC V24, CMS/HCC V28) Acute metabolic encephalopathy Hypercalcemia Malignancy (CMS/HCC V24, CMS/HCC V28) Severe protein-calorie malnutrition ([facility]/HCC V24) Hypotension [2] History reviewed. No pertinent past medical history. [3] Past Surgical History: Procedure Laterality Date US GUIDED BREAST BIOPSY RIGHT Right 2020 * Kia Le MD - 06/03/2025 12:54 PM EDT Images from the original note were not included. [facility] PROGRESS NOTE Date: 06/03/2025 Author: Kia Le MD Patient ID: Chayito Klein is a 79 y.o. female : 1945 MR#: [id number] 05/15/2025 SUBJECTIVE Patient seen and examined at bedside today. Along with historic interpreter aure ramos No overnight events. Patient doing well. She was able to sleep overnight. She feels a little better. Will try to gether out of bed today. Scheduled Medications PRN Medications IV Medications acetaminophen, 1,000 mg, q8h EMILY [Held by provider] apixaban, 2.5 mg, BID fluticasone propionate, 2 spray, Daily metoprolol tartrate, 25 mg, q6h midodrine, 10 mg, TID AC multivitamin, 1 each, Daily perflutren lipid microsphere (DEFINITY) 1.3 mL in sodium chloride 0.9% 8.7 mL injection, 10 mL, Once in imaging rosuvastatin, 10 mg, Nightly sodium chloride, 10 mL, BID tamoxifen, 20 mg, Daily thiamine, 100 mg, Daily dextrose 50%, 12.5 g, q15 min PRN dextrose 50%, 25 g, q15 min PRN dextrose, 15 g, q15 min PRN dextrose, 30 g, q15 min PRN glucagon injection, 1 mg, Once PRN LORazepam, 1 mg, q6h PRN LORazepam, 0.5 mg, Once PRN metoprolol tartrate, 2.5 mg, q4h PRN naloxone, 0.04 mg, PRN OLANZapine, 5 mg, BID PRN oxyCODONE, 5 mg, q4h PRN polyetheylene glycol, 17 g, Daily PRN sodium chloride, 100 mL, q5 min PRN sodium chloride, 10 mL, PRN sodium chloride, 42 mL/hr, PRN sodium chloride, 42 mL/hr, PRN OBJECTIVE Vitals: 06/03/25 0530 06/03/25 0727 06/03/25 0800 06/03/25 1103 BP: 104/85 126/57 BP Location: Patient Position: Pulse: 80 68 Resp: 16 16 Temp: 36.3 ??C (97.3 ??F) 37 ??C (98.6 ??F) TempSrc: Tympanic SpO2: 100% 100% 100% Weight: 58.8 kg (129 lb 9.6 oz) Height: Intake/Output Summary (Last 24 hours) at 06/03/2025 1254 Last data filed at 06/03/2025 1103 Gross per 24 hour Intake 720 ml Output 2325 ml Net -1605 ml Wt Readings from Last 1 Encounters: 06/03/25 0530 58.8 kg (129 lb 9.6 oz) 06/02/25 0532 64.4 kg (141 lb 14.4 oz) 05/28/25 0600 81.5 kg (179 lb 10.8 oz) 05/26/25 1310 67.1 kg (148 lb) 05/25/25 0751 67.5 kg (148 lb 13 oz) 05/25/25 0600 67.5 kg (148 lb 13 oz) 05/24/25 1600 65.5 kg (144 lb 6.4 oz) 05/23/25 1225 62.2 kg (137 lb 1.6 oz) 05/15/25 2257 48.6 kg (107 lb 3.2 oz) 05/15/25 1749 49.9 kg (110 lb) PHYSICAL EXAM: Gen: Chronically ill-appearing alert but disoriented and confused, CV -RRR no MGR Lungs -diminished air entry at the bases Abd - Soft, non-tender, non-distended Extremities -right upper extremity hematoma Dry skin and lower extremities Neuro -alert but disoriented very anxious RESULTS: CBC BMP Results from last 7 days Lab Units 06/03/25 0513 06/02/25201706/02/25 0553 06/01/25 2014 06/01/25 0508 05/31/25 1017 05/31/25 0307 WBC AUTO K/mcL 8.9 -- 9.4 -- 8.9 -- 6.4 HEMOGLOBIN g/dL 7.7* 7.7* 7.9* 7.9* 7.9* 8.1* 8.0* 8.0* < > 6.2* HEMATOCRIT % 24.4* 24.4* 25.0* 25.4* 25.4* 25.2* 24.2* 24.2* < > 19.7* PLATELETS K/mcL 168 -- 167 -- 143 -- 175 LYMPHS PCT AUTO % 14.4 -- 13.2 -- 13.8 -- 18.9 MONO PCT AUTO % 9.6 -- 7.8 -- 8.1 -- 9.3 EOS PCT AUTO % 2.7 -- 2.4 -- 2.8 -- 3.0 < > = values in this interval not displayed. Results from last 7 days Lab Units 06/03/25 0513 06/02/25 0553 06/01/25 0508 05/31/25 0307 05/30/25 0612 05/29/25 0504 SODIUM mmol/L 144 141 143 141 140 133 POTASSIUM mmol/L 3.4* 3.7 2.9* 3.2* 3.1* 3.5 CHLORIDE mmol/L 107 104 106 102 101 95* CO2 mmol/L 30 31 30 34* 31 30 ANION GAP 7 6 7 5 8 8 BUN mg/dL 17 15 26* 17 28* 26* CREATININE mg/dL 2.22* 1.81* 2.82* 2.29* 3.55* 2.98* CALCIUM mg/dL 7.7* 7.7* 7.5* 7.6* 8.0* 8.0* MAGNESIUM mg/dL 1.8* 2.0 1.7* 1.8* 2.1 2.1 PHOSPHORUS mg/dL -- 1.5* -- 2.0* 3.2 3.0 Results from last 7 days Lab Units 06/03/25 1059 06/03/25 0841 06/03/25 0732 06/03/25 0513 06/03/25 0424 POCT GLUCOSE mg/dL 82 87 68* -- 77 GLUCOSE mg/dL -- -- -- 71 -- Results from last 7 days Lab Units 05/30/25 0612 05/28/25 0357 AST unit/L 45* 47* ALT unit/L 14 15 No results found for this or any previous visit (from the past week). Imaging: Vascular US duplex upper extremity venous right Narrative: STUDY: VAS US DUPLEX UPPER EXT VENOUS RIGHT COMPARISON: None INDICATION: right upper extremity swelling/pain TECHNIQUE: Multiple sonographic images of the right upper extremity were obtained with and without color flow interrogation and spectral duplex waveform analysis. FINDINGS: On the right, the visualized internal jugular vein demonstrates color flow, normal phasic waveforms, and compressibility. The visualized subclavian vein demonstrates color flow and phasic waveforms. Color flow is demonstrated within the visualized axillary vein. The brachial veins demonstrates color flow, phasic waveforms and compressibility. Thrombus seen in the right cephalic vein in the upper forearm. Basilic vein not visualized. Impression: Thrombus seen in the right cephalic vein in the upper forearm. No deep venous thrombosis. -------- FINAL REPORT -------- Dictated By: Roula Macario Dictated Date: 05/30/2025 16:07 ET Assigned Physician: Roula Macario Reviewed and Electronically Signed By: Roula Macario Signed Date: 05/30/2025 16:08 ET Workstation ID: [id number] Transcribed By: Self Edit Transcribed Date: 05/30/2025 16:07 ET ASSESSMENT & PLAN 79-year-old Ecuadorean-speaking female with PMH breast cancer follows with Dr. Joseph, hypertension, leukemia, HFrEF, COPD, paroxysmal atrial fibrillation Eliquis downgraded from the ICU on 05/29/2025. Patient admitted on 05/15/2025. Patient with metastatic disease from her breast cancer. Acute blood loss anemia Questionable acute colonic ischemia worsened by chronic anticoagulation Received 2 units of blood on 05/31/2025. Hemoglobin remained stable Patient seen by GI Patient did not undergo EGD as a daughter did not want to go ahead with that. She wanted to wait and see if any further bleeding then would happen done. Continue with IV PPI twice daily . To monitor the H&H. Acute metabolic encephalopathy on admission seems to have resolved at this time. Hypercalcemia ZEN/ATN leading to end-stage renal disease started on hemodialysis Status post tunneled catheter placement on 05/27/2025 first hemodialysis on 05/28/2025 No obstruction seen by CT scan. Hypercalcemia due to metastatic breast CA Continue to follow renal recommendations Hypercalcemia resolved To hold off on dialysis for now per renal A-fib with RVR with improved heart rates on metoprolol Patient also on amiodarone which has been discontinued by cardiology. Metoprolol was decreased to 25 mg 4 times a day again because of low blood pressure. Average heart rates at rest should be less than 110 Eliquis to be held Echo showed EF of 30 to 35% with mild to moderate MR and moderate TR Hypotension continues , Florinef was restarted and patient continues to be on midodrine, will DC her Florinef and increase midodrine if needed for blood pressure control. HFrEF: Holding Lasix Entresto and spironolactone given low BP at this time. Hypokalemia and hypomagnesemia: will replete today , potassium levels better today.3.4 today ,mag 1.8 UTI completed treatment Metastatic breast cancer -diagnosed in 2020, s/p partial mastectomy right, declined adjuvant radiation. Had bone scan in outpatient which showed multiplie bone mets. Underwent bone biopsy on 05/20, path revealed breast canceras primary, MM workup was negative. -Dr. Joseph was consulted during admission, continues on tamoxifen (letrozole was discontinued). Right upper extremity hematoma noted. Ultrasound shows thrombus in the right cephalic vein in the upper forearm Hyperlipidemia on statin PT evaluation to be done Nutrition consult DVT Prophylaxis Eliquis (holding it) Full Code - Confirmed Dr. Joseph discussed at length with the daughter regarding goals of care. Please refer to his note. Patient to remain a full code at this time. Needs PT eval * Carlos Alberto Islas MD - 06/03/2025 10:21 AM EDT Images from the original note were not included. Progress Note CHIEF COMPLAINT F/u ZEN SUBJECTIVE Seen and examined Comfortable in bed D/w medical attending MEDICAL HISTORY Medical History[1] MEDICATIONS MEDSSCHEDULED[2] MEDSPRN[3] MEDSCONTINUOUS[4] OBJECTIVE Vital signs in last 24 hours: Visit Vitals BP 104/85 Pulse 80 Temp 36.3 ??C (97.3 ??F) Resp 16 Intake/Output last 24 hours: Intake/Output Summary (Last 24 hours) at 06/03/2025 1021 Last data filed at 06/03/2025 1000 Gross per 24 hour Intake 960 ml Output 1500 ml Net -540 ml Weights: Admission Weight: Weight: 49.9 kg (110 lb) Wt Readings from Last 3 Encounters: 06/03/25 58.8 kg (129 lb 9.6 oz) 01/30/25 66.2 kg (146 lb) 07/24/24 68 kg (150 lb) Physical Exam: General: No acute distress HEENT: Normocephalic, atraumatic, anicteric Cardiovascular: S1 S2 normal Respiratory: unlabored Gl: soft non-distended Extremities: No cyanosis Neurological: Alert Integumentary: no rash Psych: Calm, cooperative LABS Results from last 7 days Lab Units 06/03/25 0513 06/02/25201706/02/25 0553 06/01/25201306/01/25 0508 WBC AUTO K/mcL 8.9 -- 9.4 -- 8.9 HEMOGLOBIN g/dL 7.7* 7.7* 7.9* 7.9* 7.9* < > 8.0* 8.0* HEMATOCRIT % 24.4* 24.4* 25.0* 25.4* 25.4* < > 24.2* 24.2* MCV FL 88.7 -- 88.5 -- 84.9 PLATELETS K/mcL 168 -- 167 -- 143 < > = values in this interval not displayed. Results from last 7 days Lab Units 06/03/2551206/02/2555206/01/25 0508 CREATININE mg/dL 2.22* 1.81* 2.82* BUN mg/dL 17 15 26* SODIUM mmol/L 144 141 143 POTASSIUM mmol/L 3.4* 3.7 2.9* CHLORIDE mmol/L 107 104 106 CO2 mmol/L 30 31 30 Phosphorus Date Value Ref Range Status 06/02/2025 1.5 (L) 2.5 - 4.5 mg/dL Final 05/31/2025 2.0 (L) 2.5 - 4.5 mg/dL Final 05/30/2025 3.2 2.5 - 4.5 mg/dL Final Vitamin D, 1, 25-Dihydroxy Date Value Ref Range Status 05/24/2025 19 (L) 20 - 79 pg/mL Final Comment: Vitamin D 1, 25 dihydroxy levels should be primarily used to assess Vitamin D status in patients with renal disease and hypercalcemia. Vitamin D 1,25-dihydroxy levels are generally less than 5 pg/mL in end stage renal disease patients. The preferred initial test for assessing Vitamin D status in the general population is Vitamin D 25-hydroxy (VITD). Test performed at [facility], [address] , [place] [address] Rozina Peterson MD, PhD - Trailer Technician PTH Date Value Ref Range Status 05/16/2025 9.7 (L) 18.5 - 88.0 pcg/mL Final No results found for: IRON , TIBC , FERRITIN No results found for: COLORUA , CLARITYUA , SPECGRAVUA , PHUA , PROTUA , GLUCOSEUA , KETONESUA , BILIRUBINUA , BLOODUA , UROBILINOGUA , NITRITEUA IMPRESSION and PLAN ZEN Hypokalemia HFrEF Metastatic breast CA First HD on 05/28 S/p tunneled catheter placement on 05/27 ZEN due to acute tubular injury HD dependent Hypotensive earlier No obstruction by CT scan Not c/w contrast nephropathy Hypercalcemia due to metastatic breast CA Baseline creatinine is 0.7-0.8 mg/dl LVEF 30-35% REC Hold HD Replace K Reassess need for HD on a daily basis Goals of care discussion Follow kidney function and electrolytes Carlos Alberto Islas MD [1] History reviewed. No pertinent past medical history. [2] acetaminophen, 1,000 mg, oral, q8h EMILY [Held by provider] apixaban, 2.5 mg, oral, BID fluticasone propionate, 2 spray, Each Nostril, Daily magnesium sulfate, 2 g, intravenous, Once metoprolol tartrate, 25 mg, oral, q6h midodrine, 10 mg, oral, TID AC multivitamin, 1 each, oral, Daily perflutren lipid microsphere (DEFINITY) 1.3 mL in sodium chloride 0.9% 8.7 mL injection, 10 mL, intravenous, Once in imaging rosuvastatin, 10 mg, oral, Nightly sodium chloride, 10 mL, intravenous, BID tamoxifen, 20 mg, oral, Daily thiamine, 100 mg, oral, Daily [3] PRN medications: dextrose 50%, dextrose 50%, dextrose, dextrose, glucagon injection, LORazepam,LORazepam, metoprolol tartrate, naloxone, OLANZapine, oxyCODONE, polyetheylene glycol, sodium chloride, Insert peripheral IV AND Maintain IV access AND Saline lock IV AND sodium chloride AND sodium chloride, sodium chloride, sodium chloride [4] * Daniela Theodore RD - 06/03/2025 8:46 AM EDT 06/03/2025 @ 8:46 AM EDT Nutrition Follow Up Note Reason for RD Intervention: Assessment Type: Follow-up Reason for Assessment: High MST Score Anthropometrics: Height: 157.5 cm (62 ) Weight: 58.8 kg (129 lb 9.6 oz) BMI (Calculated): 23.7 BMI Class: Normal IBW (lbs): 110 Recent Weight Change: Yes Other (Comment): If recorded weight history accurate 27% loss over 3 months Current Diet and Supplements: Dietary Orders (From admission, onward) Start Ordered 05/31/25 1424 Adult diet [facility]; Modified Consistency Options for Liquidsand Solids; Clear Liquid Diet effective now Question Answer Comment Location [facility] Diet Type (req) Modified Consistency Options for Liquids and Solids Modified Consistency Options for Liquids and Solids Clear Liquid 05/31/25 1423 05/18/25 1235 Dietary nutrition supplements Two times daily (BID); [facility]; Standard Oral Supplement Continuous Comments: [place] or vanilla Question Answer Comment Frequency Two times daily (BID) Location [facility] Supplements Standard Oral Supplement 05/18/25 1234 History of presenting illness: Patient is a 79 y.o. female with a history of Medical History[1] Surgical History[2] admitted 05/15/2025 with Acute metabolic encephalopathy. Food/Nutrition History: Previously prescribed diets: (Per daughter: pt with weight loss and loss of appetite for past few months. Daughter encourages patient to eat, but pt consuming,75% of usual. Daughter started providingEnsure at home. Noted patient will not eat on her own needs assistance with meals.) Weight History: Wt Readings from Last 10 Encounters: 06/03/25 58.8 kg (129 lb 9.6 oz) 01/30/25 66.2 kg (146 lb) 07/24/24 68 kg (150 lb) 12/16/23 69.9 kg (154 lb 3.2 oz) 07/04/23 73 kg (161 lb) 06/15/23 72.1 kg (159 lb) 01/12/23 76.7 kg (169 lb 3.2 oz) 12/15/22 74.8 kg (165 lb) 06/21/22 71.2 kg (157 lb) 06/16/22 76.7 kg (169 lb) Subjective Assessment: Patient made NPO 05/31 for possible EGD for GI bleed, procedure not done, has only been on clear liquids since. + BM 06/02. No nausea, vomiting or abdominal pain noted. Given 20meq oral Kcl 06/02. Will change supplement to Ensure Clear until diet able to provide Ensure Plus. Last HD 06/01 with 1L fluid removed. Nutrition-Related Lab Values: Results from last 7 days Lab Units 06/03/25 0841 06/03/25 0732 06/03/25 0513 06/02/25 0826 06/02/25 0553 05/30/25 0822 05/30/25 0612 SODIUM mmol/L -- -- 144 -- 141 < > 140 POTASSIUM mmol/L -- -- 3.4* -- 3.7 < > 3.1* PHOSPHORUS mg/dL -- -- -- -- 1.5* < > 3.2 MAGNESIUM mg/dL -- -- 1.8* -- 2.0 < > 2.1 CHLORIDE mmol/L -- -- 107 -- 104 < > 101 CO2 mmol/L -- -- 30 -- 31 < > 31 BUN mg/dL -- -- 17 -- 15 < > 28* CREATININE mg/dL -- -- 2.22* -- 1.81* < > 3.55* EGFR mL/min/1.73m2 -- -- 22* -- 28* < > 12* CALCIUM mg/dL -- -- 7.7* -- 7.7* < > 8.0* BILIRUBIN TOTAL mg/dL -- -- -- -- -- -- 0.3 ALK PHOS unit/L -- -- -- -- -- -- 195* ALT unit/L -- -- -- -- -- -- 14 AST unit/L -- -- -- -- -- -- 45* POCT GLUCOSE mg/dL 87 < > -- < > -- < > -- GLUCOSE mg/dL -- -- 71 -- 85 < > 77 WBC AUTO K/mcL -- -- 8.9 -- 9.4 < > 8.2 < > = values in this interval not displayed. No results found for: LIPASE Medications: MEDSSCHEDULED[3] CONTINUOUS: MEDSCONTINUOUS[4] MEDSPRN[5] Height: 157.5 cm (62 ) Temp: 36.3 ??C (97.3 ??F) Food/Nutrition-Current Status: Intake Type: P.O. Current Diet Status: Appropriate Current Supplement Status: Appropriate Appetite: Other (Comment) (on clear liquids only) Intake Amount (%): Bites/Sips Intake Assessment: Inadequate Main IVF: None Propofol?: No Barriers: Cognitive, Language (Ecuadorean speaking) Nutrition Focused Physical Findings: Overall Appearance: pt lying in bed Digestive System (Mouth to Rectum): Other (Comment) (GI bleed) Nerves and Cognition: Alert, Other (Comment) (agitated) Skin: left tibial venous ulcer, pressure injury right hip DTI, pressure injury right buttock DTI- seen by [facility] 05/27 Loss of Fat Location: Orbital, Ribs, Triceps Loss of Fat Amt-Orbital: Moderate Loss of Fat Amt-Triceps: Moderate Loss of Fat Amt-Ribs: Moderate Loss of Muscle Location: Temples, Clavicle, Interosseous Loss of Muscle Amt-Temples: Moderate Loss of Muscle Amt-Clavicle: Moderate Loss of Muscle Amt-Inter Musc: Moderate Nutrition Diagnosis: Code Type: Severe-Acute (E43) Severe-Acute Criteria: Weight Loss >7.5%/3 mos, Moderate Body Fat Depletion, Moderate Muscle Mass Depletion Status: Other (Comment) (Ongoing) Diagnosis: Malnutrition Etiology: Increased demand for nutrient, Changes in taste and appetite or preference Symptoms: 27% weight loss over 3 months. moderate muscle and fat depletion Additional Nutrition Diagnosis?: Yes Status: No improvement Diagnosis: Inadequate Oral Intake Etiology: Physiologic causes, Changes in taste and appetite or preference Symptoms: weight loss, muscle and fat depletion Nutrition Interventions: Meals/Snacks, Medical Food Supplement, Vitamin/Mineral Supplement Medical Food Supplement(s): Ensure Clear Ensure Clear Frequency: BID -If unable to advance diet within 48-72 hours, nutrition support should be considered as that wouldmake 7 days NPO/Clear liquids only Nutrition Education Education Materials Reviewed: None today, will follow need for education with family as able, priorto discharge. Goals: Patient will tolerate diet progression. , Patient will initially consume at least 50% of meals. , Patient will consume ONS., Improvement in renal labs., Electrolytes within normal range., Maintain weight., Stooling appropriately., and Wound healing progress. Coordination of Patient Care: Verbal discussion with RN. Monitoring/Evaluation: Fluid/Beverage Intake, Medical Food Supp/Oral Nutrition Supp, Weight, Renal/Electrolyte Profile, Gastrointestinal Profile, Diet Order Follow Up: Nutrition Priority Level: High RD remains available and will continue to follow. Signature: Daniela Theodore RD [1] History reviewed. No pertinent past medical history. [2] Past Surgical History: Procedure Laterality Date US GUIDED BREAST BIOPSY RIGHT Right 2020 [3] acetaminophen, 1,000 mg, oral, q8h EMILY [Held by provider] apixaban, 2.5 mg, oral, BID fluticasone propionate, 2 spray, Each Nostril, Daily magnesium sulfate, 2 g, intravenous, Once metoprolol tartrate, 25 mg, oral, q6h midodrine, 10 mg, oral, TID AC multivitamin, 1 each, oral, Daily perflutren lipid microsphere (DEFINITY) 1.3 mL in sodium chloride 0.9% 8.7 mL injection, 10 mL, intravenous, Once in imaging potassium chloride oral extended release, 40 mEq, oral, Once rosuvastatin, 10 mg, oral, Nightly sodium chloride, 10 mL, intravenous, BID tamoxifen, 20 mg, oral, Daily thiamine, 100 mg, oral, Daily [4] [5] PRN medications: dextrose 50%, dextrose 50%, dextrose, dextrose, glucagon injection, LORazepam,LORazepam, metoprolol tartrate, naloxone, OLANZapine, oxyCODONE, polyetheylene glycol, sodium chloride, Insert peripheral IV AND Maintain IV access AND Saline lock IV AND sodium chloride AND sodium chloride, sodium chloride, sodium chloride * Sofia Melissa RN - 06/03/2025 4:45 AM EDT Goals: Identify possible barriers to meeting goals/advancing plan of care: LOC - Alert to self Stability of the patient: Moderately Stable - Low risk of patient condition declining or worsening End of Shift Summary: Patient progressing appropriately * Kalee Bueno MD - 06/02/2025 1:15 PM EDT Images from the original note were not included. Progress Note CHIEF COMPLAINT F/u SUBJECTIVE Patient seen and examined Stated she in pain Unable to get much history MEDICAL HISTORY Medical History[1] MEDICATIONS MEDSSCHEDULED[2] MEDSPRN[3] MEDSCONTINUOUS[4] OBJECTIVE Vital signs in last 24 hours: Visit Vitals BP 117/58 Pulse 79 Temp 37.1 ??C (98.7 ??F) Resp 18 Intake/Output last 24 hours: Intake/Output Summary (Last 24 hours) at 06/02/2025 1315 Last data filed at 06/02/2025 0600 Gross per 24 hour Intake 240 ml Output 1300 ml Net -1060 ml Weights: Admission Weight: Weight: 49.9 kg (110 lb) Wt Readings from Last 3 Encounters: 06/02/25 64.4 kg (141 lb 14.4 oz) 01/30/25 66.2 kg (146 lb) 07/24/24 68 kg (150 lb) Physical Exam: General: No acute distress HEENT: Normocephalic, atraumatic, anicteric Cardiovascular: S1 S2 normal Respiratory: unlabored Gl: soft non-distended Extremities: No cyanosis Neurological: Alert Integumentary: no rash Psych: Calm, cooperative LABS Results from last 7 days Lab Units 06/02/25 0553 06/01/25201306/01/2550705/31/25 1017 05/31/25 0307 WBC AUTO K/mcL 9.4 -- 8.9 -- 6.4 HEMOGLOBIN g/dL 7.9* 7.9* 8.1* 8.0* 8.0* < > 6.2* HEMATOCRIT % 25.4* 25.4* 25.2* 24.2* 24.2* < > 19.7* MCV FL 88.5 -- 84.9 -- 87.1 PLATELETS K/mcL 167 -- 143 -- 175 < > = values in this interval not displayed. Results from last 7 days Lab Units 06/02/25 0553 06/01/258 05/31/25 0307 CREATININE mg/dL 1.81* 2.82* 2.29* BUN mg/dL 15 26* 17 SODIUM mmol/L 141 143 141 POTASSIUM mmol/L 3.7 2.9* 3.2* CHLORIDE mmol/L 104 106 102 CO2 mmol/L 31 30 34* Phosphorus Date Value Ref Range Status 06/02/2025 1.5 (L) 2.5 - 4.5 mg/dL Final 05/31/2025 2.0 (L) 2.5 - 4.5 mg/dL Final 05/30/2025 3.2 2.5 - 4.5 mg/dL Final Vitamin D, 1, 25-Dihydroxy Date Value Ref Range Status 05/24/2025 19 (L) 20 - 79 pg/mL Final Comment: Vitamin D 1, 25 dihydroxy levels should be primarily used to assess Vitamin D status in patients with renal disease and hypercalcemia. Vitamin D 1,25-dihydroxy levels are generally less than 5 pg/mL in end stage renal disease patients. The preferred initial test for assessing Vitamin D status in the general population is Vitamin D 25-hydroxy (VITD). Test performed at [facility], [address] , [place] [id number] Rozina Peterson MD, PhD - Trailer Technician PTH Date Value Ref Range Status 05/16/2025 9.7 (L) 18.5 - 88.0 pcg/mL Final No results found for: IRON , TIBC , FERRITIN No results found for: COLORUA , CLARITYUA , SPECGRAVUA , PHUA , PROTUA , GLUCOSEUA , KETONESUA , BILIRUBINUA , BLOODUA , UROBILINOGUA , NITRITEUA IMPRESSION and PLAN ZEN Hypokalemia HFrEF Metastatic breast CA First HD on 05/28 S/p tunneled catheter placement on 05/27 ZEN due to acute tubular injury HD dependent No obstruction by CT scan Not c/w contrast nephropathy Hypercalcemia due to metastatic breast CA Baseline creatinine is 0.7-0.8 mg/dl LVEF 30-35% Recs: Pow potassium could be related to florinef ( dose reduced) Potassium currently better Good urine output Will monitor for renal recovery. Not for dialysis tomorrow Blood transfusion for Hb < 7 Follow kidney function and electrolytes Kalee Bueno MD [1] History reviewed. No pertinent past medical history. [2] acetaminophen, 1,000 mg, oral, q8h EMILY [Held by provider] apixaban, 2.5 mg, oral, BID fluticasone propionate, 2 spray, Each Nostril, Daily LORazepam, , , metoprolol tartrate, 25 mg, oral, q6h midodrine, 10 mg, oral, TID AC multivitamin, 1 each, oral, Daily perflutren lipid microsphere (DEFINITY) 1.3 mL in sodium chloride 0.9% 8.7 mL injection, 10 mL, intravenous, Once in imaging rosuvastatin, 10 mg, oral, Nightly sodium chloride, 10 mL, intravenous, BID tamoxifen, 20 mg, oral, Daily thiamine, 100 mg, oral, Daily [3] PRN medications: dextrose 50%, dextrose 50%, dextrose, dextrose, glucagon injection, LORazepam,LORazepam, LORazepam, metoprolol tartrate, naloxone, OLANZapine, oxyCODONE, polyetheylene glycol, sodium chloride, Insert peripheral IV AND Maintain IV access AND Saline lock IV AND sodium chloride AND sodium chloride, sodium chloride, sodium chloride [4] * Kia Le MD - 06/02/2025 1:02 PM EDT Images from the original note were not included. [facility] PROGRESS NOTE Date: 06/02/2025 Author: Kia Le MD Patient ID: Chayito Klein is a 79 y.o. female : 1945 MR#: [id number] 05/15/2025 SUBJECTIVE Patient seen and examined at bedside today. Along with historic interpreter José Miguel. No overnight events. Patient doing well. Blood pressure stable for now. Patient is mentioning that she wants to gohome today. Scheduled Medications PRN Medications IV Medications acetaminophen, 1,000 mg, q8h EMILY [Held by provider] apixaban, 2.5 mg, BID fludrocortisone, 0.1 mg, Daily fluticasone propionate, 2 spray, Daily LORazepam, , metoprolol tartrate, 25 mg, q6h midodrine, 10 mg, TID AC multivitamin, 1 each, Daily perflutren lipid microsphere (DEFINITY) 1.3 mL in sodium chloride 0.9% 8.7 mL injection, 10 mL, Once in imaging rosuvastatin, 10 mg, Nightly sodium chloride, 10 mL, BID tamoxifen, 20 mg, Daily thiamine, 100 mg, Daily dextrose 50%, 12.5 g, q15 min PRN dextrose 50%, 25 g, q15 min PRN dextrose, 15 g, q15 min PRN dextrose, 30 g, q15 min PRN glucagon injection, 1 mg, Once PRN LORazepam, , LORazepam, 1 mg, q6h PRN LORazepam, 0.5 mg, Once PRN metoprolol tartrate, 2.5 mg, q4h PRN naloxone, 0.04 mg, PRN OLANZapine, 5 mg, BID PRN oxyCODONE, 5 mg, q4h PRN polyetheylene glycol, 17 g, Daily PRN sodium chloride, 100 mL, q5 min PRN sodium chloride, 10 mL, PRN sodium chloride, 42 mL/hr, PRN sodium chloride, 42 mL/hr, PRN OBJECTIVE Vitals: 06/02/25 0353 06/02/25 0532 06/02/25 0835 06/02/25 1207 BP: 124/68 136/70 117/58 BP Location: Left arm Patient Position: Lying Pulse: 88 89 79 Resp: 18 18 18 Temp: 36.6 ??C (97.8 ??F) 36.1 ??C (97 ??F) 37.1 ??C (98.7 ??F) TempSrc: Temporal SpO2: 100% 96% 97% Weight: 64.4 kg (141 lb 14.4 oz) Height: Intake/Output Summary (Last 24 hours) at 06/02/2025 1302 Last data filed at 06/02/2025 0600 Gross per 24 hour Intake 240 ml Output 1300 ml Net -1060 ml Wt Readings from Last 1 Encounters: 06/02/25 0532 64.4 kg (141 lb 14.4 oz) 05/28/25 0600 81.5 kg (179 lb 10.8 oz) 05/26/25 1310 67.1 kg (148 lb) 05/25/25 0751 67.5 kg (148 lb 13 oz) 05/25/25 0600 67.5 kg (148 lb 13 oz) 05/24/25 1600 65.5 kg (144 lb 6.4 oz) 05/23/25 1225 62.2 kg (137 lb 1.6 oz) 05/15/25 2257 48.6 kg (107 lb 3.2 oz) 05/15/25 1749 49.9 kg (110 lb) PHYSICAL EXAM: Gen: Chronically ill-appearing alert but disoriented and confused, CV -RRR no MGR Lungs -diminished air entry at the bases Abd - Soft, non-tender, non-distended Extremities -right upper extremity hematoma Dry skin and lower extremities Neuro -alert but disoriented very anxious RESULTS: CBC BMP Results from last 7 days Lab Units 06/02/25 0553 06/01/25201306/01/25 05005/31/25200505/31/25 1017 05/31/25 03005/30/25 06 WBC AUTO K/mcL 9.4 -- 8.9 -- -- 6.4 8.2 HEMOGLOBIN g/dL 7.9* 7.9* 8.1* 8.0* 8.0* 8.3* < > 6.2* 7.9* HEMATOCRIT % 25.4* 25.4* 25.2* 24.2* 24.2* 25.8* < > 19.7* 25.3* PLATELETS K/mcL 167 -- 143 -- -- 175 228 LYMPHS PCT AUTO % 13.2 -- 13.8 -- -- 18.9 18.8 MONO PCT AUTO % 7.8 -- 8.1 -- -- 9.3 10.0 EOS PCT AUTO % 2.4 -- 2.8 -- -- 3.0 1.9 < > = values in this interval not displayed. Results from last 7 days Lab Units 06/02/25 0553 06/01/258 05/31/2530605/30/2561105/29/25 0504 SODIUM mmol/L 141 143 141 140 133 POTASSIUM mmol/L 3.7 2.9* 3.2* 3.1* 3.5 CHLORIDE mmol/L 104 106 102 101 95* CO2 mmol/L 31 30 34* 31 30 ANION GAP 6 7 5 8 8 BUN mg/dL 15 26* 17 28* 26* CREATININE mg/dL 1.81* 2.82* 2.29* 3.55* 2.98* CALCIUM mg/dL 7.7* 7.5* 7.6* 8.0* 8.0* MAGNESIUM mg/dL 2.0 1.7* 1.8* 2.1 2.1 PHOSPHORUS mg/dL 1.5* -- 2.0* 3.2 3.0 Results from last 7 days Lab Units 06/02/25 1208 06/02/25 0826 06/02/25 0553 06/02/25 0355 06/01/25 2348 POCT GLUCOSE mg/dL 105* 76 -- 72 119* GLUCOSE mg/dL -- -- 85 -- -- Results from last 7 days Lab Units 05/30/25 0612 05/28/25 0357 05/27/25 0417 AST unit/L 45* 47* 58* ALT unit/L 14 15 21 No results found for this or any previous visit (from the past week). Imaging: Vascular US duplex upper extremity venous right Narrative: STUDY: VAS US DUPLEX UPPER EXT VENOUS RIGHT COMPARISON: None INDICATION: right upper extremity swelling/pain TECHNIQUE: Multiple sonographic images of the right upper extremity were obtained with and without color flow interrogation and spectral duplex waveform analysis. FINDINGS: On the right, the visualized internal jugular vein demonstrates color flow, normal phasic waveforms, and compressibility. The visualized subclavian vein demonstrates color flow and phasic waveforms. Color flow is demonstrated within the visualized axillary vein. The brachial veins demonstrates color flow, phasic waveforms and compressibility. Thrombus seen in the right cephalic vein in the upper forearm. Basilic vein not visualized. Impression: Thrombus seen in the right cephalic vein in the upper forearm. No deep venous thrombosis. -------- FINAL REPORT -------- Dictated By: Roula Macario Dictated Date: 05/30/2025 16:07 ET Assigned Physician: Roula Macario Reviewed and Electronically Signed By: Roula Macario Signed Date: 05/30/2025 16:08 ET Workstation ID: [id number] Transcribed By: Self Edit Transcribed Date: 05/30/2025 16:07 ET ASSESSMENT & PLAN 79-year-old Ecuadorean-speaking female with PMH breast cancer follows with Dr. Joseph, hypertension, leukemia, HFrEF, COPD, paroxysmal atrial fibrillation Eliquis downgraded from the ICU on 05/29/2025. Patient admitted on 05/15/2025. Patient with metastatic disease from her breast cancer. Acute blood loss anemia Questionable acute colonic ischemia worsened by chronic anticoagulation Received 2 units of blood on 05/31/2025. Hemoglobin 8.0 this morning. Patient seen by GI Patient did not undergo EGD as a daughter did not want to go ahead with that. She wanted to wait and see if any further bleeding then would happen done. Continue with IV PPI twice daily . To monitor the H&H. Acute metabolic encephalopathy on admission seems to have resolved at this time. Hypercalcemia ZEN/ATN leading to end-stage renal disease started on hemodialysis Status post tunneled catheter placement on 05/27/2025 first hemodialysis on 05/28/2025 No obstruction seen by CT scan. Hypercalcemia due to metastatic breast CA Continue to follow renal recommendations Hypercalcemia resolved To continue with hemodialysis per renal A-fib with RVR with improved heart rates on metoprolol Patient also on amiodarone which has been discontinued by cardiology. Metoprolol was decreased to 25 mg 4 times a day again because of low blood pressure. Average heart rates at rest should be less than 110 Eliquis to be held Echo showed EF of 30 to 35% with mild to moderate MR and moderate TR Hypotension continues , Florinef was restarted and patient continues to be on midodrine, will DC her Florinef and increase midodrine if needed for blood pressure control. HFrEF: Holding Lasix Entresto and spironolactone given low BP at this time. Hypokalemia and hypomagnesemia: will replete today , potassium levels better today.3.7 today UTI completed treatment Metastatic breast cancer -diagnosed in 2020, s/p partial mastectomy right, declined adjuvant radiation. Had bone scan in outpatient which showed multiplie bone mets. Underwent bone biopsy on 05/20, path revealed breast canceras primary, MM workup was negative. -Dr. Joseph was consulted during admission, continues on tamoxifen (letrozole was discontinued). Right upper extremity hematoma noted. Ultrasound shows thrombus in the right cephalic vein in the upper forearm Hyperlipidemia on statin PT evaluation to be done Nutrition consult DVT Prophylaxis Eliquis (holding it) Full Code - Confirmed Dr. Joseph discussed at length with the daughter regarding goals of care. Please refer to his note. Patient to remain a full code at this time. * Dejah Toro RN - 06/02/2025 11:22 AM EDT Called daughter Maggie for pt. Pt would like daughter. Left message. * Kriss Gilbert RN - 06/02/2025 7:00 AM EDT Problem: Cognitive: Knowledge Deficit of Disease Process Goal: Knowledge of disease or condition will improve Outcome: Progressing Goal: Identification of resources available to assist in meeting health care needs will improve Outcome: Progressing Problem: Patient Specific Problem: Knowledge Deficit of Disease Process Goal: Patient Specific Outcome Outcome: Progressing Problem: Sensory: Acute Pain Goal: Pain level will improve or be tolerable Outcome: Progressing Goal: Ability to develop a pain control plan will improve Outcome: Progressing Problem: Cognitive: Acute Pain Goal: Expressions of feelings of enhanced comfort will increase Outcome: Progressing Problem: Patient Specific Problem: Acute Pain Goal: Patient Specific Outcome Outcome: Progressing Problem: Cardiac:Cardiac Output Alteration Goal: Ability to maintain an adequate cardiac output will improve Outcome: Progressing Problem: Cognitive:Cardiac Output Alteration Goal: Ability to state signs and symptoms to report to health care provider will improve Outcome: Progressing Goal: Knowledge of the prescribed therapeutic regimen will improve Outcome: Progressing Problem: Fluid Volume: Cardiac Output Alteration Goal: Ability to achieve a balanced intake and output will improve Outcome: Progressing Problem: Physical Regulation:Cardiac Output Alteration Goal: Will achieve and/or maintain hemodynamic stability Outcome: Progressing Problem: Patient Specific Problem: Cardiac Output Alteration Goal: Patient Specific Outcome Outcome: Progressing Problem: Cognitive: Acute Anxiety Goal: Ability to identify strategies to decrease anxiety will improve Outcome: Progressing Problem: Self-Concept: Acute Anxiety Goal: Level of anxiety will decrease Outcome: Progressing Problem: Patient Specific Problem: Acute Anxiety Goal: Patient Specific Outcome Outcome: Progressing Problem: Cognitive: Elisabeth Kent Fall Risk Goal: Last Known Fall Outcome: Progressing Goal: Mobility requiring assistance of person or device Outcome: Progressing Goal: Dizziness Outcome: Progressing Goal: Medications Outcome: Progressing Goal: Mental Status/LOC/Awareness Outcome: Progressing Goal: Toileting Needs Outcome: Progressing Goal: Volume and Electrolyte Status Outcome: Progressing Goal: Communication/Sensory Outcome: Progressing Goal: Behavior Outcome: Progressing Problem: Risk for Impaired Skin Integrity R/T Friction and Shear Goal: Prevent/Maintain/Improve Skin Integrity No Apparent Problem Outcome: Progressing Goal: Prevent/Maintain/Improve Skin Integrity Potential Problem Outcome: Progressing Goal: Prevent/Maintain/Improve Skin Integrity Problem Outcome: Progressing Problem: Risk for Impaired Skin Integrity R/T Moisture Goal: Prevent/Maintain/Improve Skin Integrity Problem Rarely Moist Outcome: Progressing Goal: Prevent/Maintain/Improve Skin Integrity Occasionally Moist Outcome: Progressing Goal: Prevent/Maintain/Improve Skin Integrity Very Moist Outcome: Progressing Goal: Prevent/Maintain/Improve Skin Integrity Constantly Moist Outcome: Progressing Problem: Risk for Impaired Skin Integrity R/T Altered Activity Goal: Prevent/Maintain/Improve Skin Integrity Walks Frequently Outcome: Progressing Goal: Prevent/Maintain/Improve Skin Integrity Walks Occasionally Outcome: Progressing Goal: Prevent/Maintain/Improve Skin Integrity Chairfast Outcome: Progressing Goal: Prevent/Maintain/Improve Skin Integrity Bedfast Outcome: Progressing Problem: Risk for Impaired Skin Integrity R/T Sensory Perception Goal: Prevent/Maintain/Improve Skin Integrity No Impairment Outcome: Progressing Goal: Prevent/Maintain/Improve Skin Integrity Slightly Limited Outcome: Progressing Goal: Prevent/Maintain/Improve Skin Integrity Very Limited Outcome: Progressing Goal: Prevent/Maintain/Improve Skin Integrity Completely Limited Outcome: Progressing Problem: Risk for Impaired Skin Integrity R/T Altered Nutrition Goal: Prevent/Maintain/Improve Skin Integrity Excellent Outcome: Progressing Goal: Prevent/Maintain/Improve Skin Integrity Adequate Outcome: Progressing Goal: Prevent/Maintain/Improve Skin Integrity Probably Inadequate Outcome: Progressing Goal: Prevent/Maintain/Improve Skin Integrity Very Poor Outcome: Progressing Problem: Risk for Impaired Skin Integrity R/T Altered Mobility Goal: Prevent/Maintain/Improve Skin Integrity No Limitation Outcome: Progressing Goal: Prevent/Maintain/Improve Skin Integrity Slightly Limited Outcome: Progressing Goal: Prevent/Maintain/Improve Skin Integrity Very Limited Outcome: Progressing Goal: Prevent/Maintain/Improve Skin Integrity Completely Immobile Outcome: Progressing Problem: Skin Integrity: Pressure Injury Actual or Risk of Goal: Will not develop new pressure injury Outcome: Progressing Goal: Skin integrity will improve Outcome: Progressing Goal: Risk for impaired skin integrity will decrease Outcome: Progressing Problem: Activity:Pressure Injury Actual or Risk of Goal: Mobility will improve Outcome: Progressing Problem: Nutritional:Pressure Injury Actual or Risk of Goal: Nutritional status will improve Outcome: Progressing Goals: Identify possible barriers to meeting goals/advancing plan of care: Stability of the patient: Moderately Unstable - Medium risk of patient condition declining or worsening End of Shift Summary: * Dejah Toro RN - 06/01/2025 6:55 PM EDT Patient alert to self as is baseline, patient chose oranges juice for low poc of 69/asymptomatic, will recheck. * Kalee Bueno MD - 06/01/2025 3:10 PM EDT Images from the original note were not included. Progress Note CHIEF COMPLAINT F/u SUBJECTIVE Patient seen and examined MEDICAL HISTORY Medical History[1] MEDICATIONS MEDSSCHEDULED[2] MEDSPRN[3] MEDSCONTINUOUS[4] OBJECTIVE Vital signs in last 24 hours: Visit Vitals BP 131/62 (BP Location: Upper;Right arm, Patient Position: Lying) Pulse 85 Temp 36.1 ??C (97 ??F) (Temporal) Resp 16 Intake/Output last 24 hours: Intake/Output Summary (Last 24 hours) at 06/01/2025 1510 Last data filed at 06/01/2025 1413 Gross per 24 hour Intake 730 ml Output 2950 ml Net -2220 ml Weights: Admission Weight: Weight: 49.9 kg (110 lb) Wt Readings from Last 3 Encounters: 05/28/25 81.5 kg (179 lb 10.8 oz) 01/30/25 66.2 kg (146 lb) 07/24/24 68 kg (150 lb) Physical Exam: General: No acute distress HEENT: Normocephalic, atraumatic, anicteric Cardiovascular: S1 S2 normal Respiratory: unlabored Gl: soft non-distended Extremities: No cyanosis Neurological: Alert Integumentary: no rash Psych: Calm, cooperative LABS Results from last 7 days Lab Units 06/01/25 0508 05/31/25200505/31/25 1017 05/31/25 0307 05/30/25 0612 WBC AUTO K/mcL 8.9 -- -- 6.4 8.2 HEMOGLOBIN g/dL 8.0* 8.0* 8.3* 7.4* 6.2* 7.9* HEMATOCRIT % 24.2* 24.2* 25.8* 23.1* 19.7* 25.3* MCV FL 84.9 -- -- 87.1 84.6 PLATELETS K/mcL 143 -- -- 175 228 Results from last 7 days Lab Units 06/01/25 0508 05/31/25 0307 05/30/25 0612 CREATININE mg/dL 2.82* 2.29* 3.55* BUN mg/dL 26* 17 28* SODIUM mmol/L 143 141 140 POTASSIUM mmol/L 2.9* 3.2* 3.1* CHLORIDE mmol/L 106 102 101 CO2 mmol/L 30 34* 31 Phosphorus Date Value Ref Range Status 05/31/2025 2.0 (L) 2.5 - 4.5 mg/dL Final 05/30/2025 3.2 2.5 - 4.5 mg/dL Final 05/29/2025 3.0 2.5 - 4.5 mg/dL Final Vitamin D, 1, 25-Dihydroxy Date Value Ref Range Status 05/24/2025 19 (L) 20 - 79 pg/mL Final Comment: Vitamin D 1, 25 dihydroxy levels should be primarily used to assess Vitamin D status in patients with renal disease and hypercalcemia. Vitamin D 1,25-dihydroxy levels are generally less than 5 pg/mL in end stage renal disease patients. The preferred initial test for assessing Vitamin D status in the general population is Vitamin D 25-hydroxy (VITD). Test performed at [facility], [address], [place] [address] Rozina Peterson MD, PhD - Trailer Technician PTH Date Value Ref Range Status 05/16/2025 9.7 (L) 18.5 - 88.0 pcg/mL Final No results found for: IRON , TIBC , FERRITIN No results found for: COLORUA , CLARITYUA , SPECGRAVUA , PHUA , PROTUA , GLUCOSEUA , KETONESUA , BILIRUBINUA , BLOODUA , UROBILINOGUA , NITRITEUA IMPRESSION and PLAN ZEN Hypokalemia HFrEF Metastatic breast CA First HD on 05/28 S/p tunneled catheter placement on 05/27 ZEN due to acute tubular injury HD dependent Hypotensive earlier No obstruction by CT scan Not c/w contrast nephropathy Hypercalcemia due to metastatic breast CA Baseline creatinine is 0.7-0.8 mg/dl LVEF 30-35% Recs: Potassium 2.9 ( we did dialysis with higher K bath) Low potassium could be related to florinef ( suggest cutting back the dose to once a day and can increase midodrine to 15mg tid if needed) Good urine output Will monitor for renal recovery. Blood transfusion for Hb < 7 Follow kidney function and electrolytes Kalee Bueno MD [1] History reviewed. No pertinent past medical history. [2] acetaminophen, 1,000 mg, oral, q8h EMILY [Held by provider] apixaban, 2.5 mg, oral, BID fludrocortisone, 0.1 mg, oral, BID fluticasone propionate, 2 spray, Each Nostril, Daily metoprolol tartrate, 25 mg, oral, q6h midodrine, 10 mg, oral, TID AC multivitamin, 1 each, oral, Daily perflutren lipid microsphere (DEFINITY) 1.3 mL in sodium chloride 0.9% 8.7 mL injection, 10 mL, intravenous, Once in imaging potassium chloride oral extended release, 40 mEq, oral, q4h rosuvastatin, 10 mg, oral, Nightly sodium chloride, 10 mL, intravenous, BID tamoxifen, 20 mg, oral, Daily thiamine, 100 mg, oral, Daily [3] PRN medications: dextrose 50%, dextrose 50%, dextrose, dextrose, glucagon injection, LORazepam,LORazepam, metoprolol tartrate, naloxone, OLANZapine, oxyCODONE, polyetheylene glycol, sodium chloride, Insert peripheral IV AND Maintain IV access AND Saline lock IV AND sodium chloride AND sodium chloride, sodium chloride, sodium chloride [4] * Jose Meadows RN - 06/01/2025 12:30 PM EDT 06/01/25 1230 Vital Signs Patient Identification Yes Temp 36.1 ??C (97 ??F) Temp Source Temporal Heart Rate 85 Heart Rate Source Monitor Resp 16 BP 131/62 MAP (Device/Manual Entry) 82 mmHg MAP (Calculated) 85 mm Hg BP Method Automatic BP Location Upper;Right arm Patient Position Lying SpO2 99 % (Room air) Post-Hemodialysis Assessment Rinseback Volume (mL) 150 mL Total Liters Processed (L/min) 74.5 L/min Dialyzer Clearance Moderately streaked Duration of Treatment (minutes) 180 minutes Hemodialysis Output (mL) 1000 mL Patient Response to Treatment/Comments Pt completed 3.0 hr Hemodialysis tx. 1.0 L net fluid removed. Dressing changed, no s/s of infection. Pt disoriented and anxious during tx and improvement with medication and redirection. Anxiety induced tachycardic during tx, ranging 80-170's, medical team aware, and medication provided with positive effects. Pt stable post-tx. Report given to primary [facility] [place] Dejah Toro RN Weight (Unavailable) * Kia Le MD - 06/01/2025 12:20 PM EDT Images from the original note were not included. [facility]UT[facility] PROGRESS NOTE Date: 06/01/2025 Author: Kia Le MD Patient ID: Chayito Klein is a 79 y.o. female : 1945 MR#: [id number] 05/15/2025 SUBJECTIVE Patient seen and examined at bedside today. Getting her dialysis today . Received 2 units of blood yesterday , BPA little better Scheduled Medications PRN Medications IV Medications acetaminophen, 1,000 mg, q8h EMILY [Held by provider] apixaban, 2.5 mg, BID fludrocortisone, 0.1 mg, BID fluticasone propionate, 2 spray, Daily magnesium sulfate, 2 g, Once metoprolol tartrate, 25 mg, q6h midodrine, 10 mg, TID AC multivitamin, 1 each, Daily perflutren lipid microsphere (DEFINITY) 1.3 mL in sodium chloride 0.9% 8.7 mL injection, 10 mL, Once in imaging potassium chloride oral extended release, 40 mEq, q4h rosuvastatin, 10 mg, Nightly sodium chloride, 10 mL, BID tamoxifen, 20 mg, Daily thiamine, 100 mg, Daily dextrose 50%, 12.5 g, q15 min PRN dextrose 50%, 25 g, q15 min PRN dextrose, 15 g, q15 min PRN dextrose, 30 g, q15 min PRN glucagon injection, 1 mg, Once PRN LORazepam, 1 mg, q6h PRN LORazepam, 0.5 mg, Once PRN metoprolol tartrate, 2.5 mg, q4h PRN naloxone, 0.04 mg, PRN OLANZapine, 5 mg, BID PRN oxyCODONE, 5 mg, q4h PRN polyetheylene glycol, 17 g, Daily PRN sodium chloride, 100 mL, q5 min PRN sodium chloride, 10 mL, PRN sodium chloride, 42 mL/hr, PRN sodium chloride, 42 mL/hr, PRN OBJECTIVE Vitals: 06/01/25 1145 06/01/25 1200 06/01/25 1201 06/01/25 1215 BP: 112/56 118/77 89/63 110/66 BP Location: Right arm Patient Position: Lying Pulse: 80 90 83 85 Resp: 15 Temp: 35.6 ??C (96 ??F) TempSrc: Temporal SpO2: 98% Weight: Height: Intake/Output Summary (Last 24 hours) at 06/01/2025 1220 Last data filed at 06/01/2025 0920 Gross per 24 hour Intake 350 ml Output 1650 ml Net -1300 ml Wt Readings from Last 1 Encounters: 05/28/25 0600 81.5 kg (179 lb 10.8 oz) 05/26/25 1310 67.1 kg (148 lb) 05/25/25 0751 67.5 kg (148 lb 13 oz) 05/25/25 0600 67.5 kg (148 lb 13 oz) 05/24/25 1600 65.5 kg (144 lb 6.4 oz) 05/23/25 1225 62.2 kg (137 lb 1.6 oz) 05/15/25 2257 48.6 kg (107 lb 3.2 oz) 05/15/25 1749 49.9 kg (110 lb) PHYSICAL EXAM: Gen: Chronically ill-appearing alert but disoriented and confused, CV -RRR no MGR Lungs -diminished air entry at the bases Abd - Soft, non-tender, non-distended Extremities -right upper extremity hematoma noted. Dry skin and lower extremities Neuro -alert but disoriented very anxious RESULTS: CBC BMP Results from last 7 days Lab Units 06/01/25 0508 05/31/25 2006 05/31/25 1017 05/31/25 0307 05/30/25 0612 05/29/25 0504 WBC AUTO K/mcL 8.9 -- -- 6.4 8.2 8.5 8.5 HEMOGLOBIN g/dL 8.0* 8.0* 8.3* 7.4* 6.2* 7.9* 7.6* 7.6* HEMATOCRIT % 24.2* 24.2* 25.8* 23.1* 19.7* 25.3* 24.9* 24.9* PLATELETS K/mcL 143 -- -- 175 228 214 214 LYMPHS PCT AUTO % 13.8 -- -- 18.9 18.8 14.7 MONO PCT AUTO % 8.1 -- -- 9.3 10.0 8.2 EOS PCT AUTO % 2.8 -- -- 3.0 1.9 2.5 Results from last 7 days Lab Units 06/01/25 0508 05/31/25 0307 05/30/25 0612 05/29/25 0504 05/28/25 2051 SODIUM mmol/L 143 141 140 133 138 POTASSIUM mmol/L 2.9* 3.2* 3.1* 3.5 3.4* CHLORIDE mmol/L 106 102 101 95* 100 CO2 mmol/L 30 34* 31 30 26 ANION GAP 7 5 8 8 12* BUN mg/dL 26* 17 28* 26* 25 CREATININE mg/dL 2.82* 2.29* 3.55* 2.98* 3.04* CALCIUM mg/dL 7.5* 7.6* 8.0* 8.0* 7.5* MAGNESIUM mg/dL 1.7* 1.8* 2.1 2.1 1.8* PHOSPHORUS mg/dL -- 2.0* 3.2 3.0 2.0* Results from last 7 days Lab Units 06/01/25 1204 06/01/25 0833 06/01/25 0637 06/01/25 0623 06/01/25 0508 POCT GLUCOSE mg/dL 74 78 75 78 -- GLUCOSE mg/dL -- -- -- -- 81 Results from last 7 days Lab Units 05/30/25 0612 05/28/25 0357 05/27/25 0417 05/26/25 0533 05/25/25 1823 05/25/25 1350 AST unit/L 45* 47* 58* 68* 76* 73* ALT unit/L 14 15 21 22 23 22 No results found for this or any previous visit (from the past week). Imaging: Vascular US duplex upper extremity venous right Narrative: STUDY: VAS US DUPLEX UPPER EXT VENOUS RIGHT COMPARISON: None INDICATION: right upper extremity swelling/pain TECHNIQUE: Multiple sonographic images of the right upper extremity were obtained with and without color flow interrogation and spectral duplex waveform analysis. FINDINGS: On the right, the visualized internal jugular vein demonstrates color flow, normal phasic waveforms, and compressibility. The visualized subclavian vein demonstrates color flow and phasic waveforms. Color flow is demonstrated within the visualized axillary vein. The brachial veins demonstrates color flow, phasic waveforms and compressibility. Thrombus seen in the right cephalic vein in the upper forearm. Basilic vein not visualized. Impression: Thrombus seen in the right cephalic vein in the upper forearm. No deep venous thrombosis. -------- FINAL REPORT -------- Dictated By: Roula Macario Dictated Date: 05/30/2025 16:07 ET Assigned Physician: Roula Macario Reviewed and Electronically Signed By: Roula Macario Signed Date: 05/30/2025 16:08 ET Workstation ID: [id number] Transcribed By: Self Edit Transcribed Date: 05/30/2025 16:07 ET ASSESSMENT & PLAN 79-year-old Ecuadorean-speaking female with PMH breast cancer follows with Dr. Joseph, hypertension, leukemia, HFrEF, COPD, paroxysmal atrial fibrillation Eliquis downgraded from the ICU on 05/29/2025. Patient admitted on 05/15/2025. Patient with metastatic disease from her breast cancer. Acute blood loss anemia Questionable acute colonic ischemia worsened by chronic anticoagulation Received 2 units of blood on 05/31/2025. Hemoglobin 8.0 this morning. Patient seen by GI Patient did not undergo EGD as a daughter did not want to go ahead with that. She wanted to wait and see if any further bleeding then would happen done. Continue with IV PPI twice daily . To monitor the H&H. Acute metabolic encephalopathy on admission seems to have resolved at this time. Hypercalcemia ZEN/ATN leading to end-stage renal disease started on hemodialysis Status post tunneled catheter placement on 05/27/2025 first hemodialysis on 05/28/[address] No obstruction seen by CT scan. Hypercalcemia due to metastatic breast CA Patient getting her hemodialysis today. Continue to follow renal recommendations Hypercalcemia resolved A-fib with RVR with improved heart rates on metoprolol Patient also on amiodarone which has been discontinued by cardiology. Metoprolol was decreased to 25 mg 4 times a day again because of low blood pressure. Average heart rates at rest should be less than 110 Eliquis to be held Echo showed EF of 30 to 35% with mild to moderate MR and moderate TR Hypotension continues , Florinef was restarted and patient continues to be on midodrine HFrEF: Holding Lasix Entresto and spironolactone given low BP at this time. Hypokalemia and hypomagnesemia: will replete today UTI completed treatment Metastatic breast cancer -diagnosed in 2020, s/p partial mastectomy right, declined adjuvant radiation. Had bone scan in outpatient which showed multiplie bone mets. Underwent bone biopsy on 05/20, path revealed breast canceras primary, MM workup was negative. -Dr. Joseph was consulted during admission, continues on tamoxifen (letrozole was discontinued). Right upper extremity hematoma noted. Ultrasound shows thrombus in the right cephalic vein in the upper forearm Hyperlipidemia on statin PT evaluation to be done Nutrition consult DVT Prophylaxis Eliquis (holding it) Full Code - Confirmed Dr. Joseph discussed at length with the daughter regarding goals of care. Please refer to his note. Patient to remain a full code at this time. * Dhaval Joseph MD - 05/31/2025 4:09 PM EDT Identifying data: The patient is an 79-year-old female who initially presented in 03/2021 with a right-sided stage I breast cancer, ER/MT-positive, HER2-negative who more recently presented with diffuse bone metastaseswith associated hypercalcemia and resultant mental status changes. Interval history: The patient has had a difficult hospital course. She has had protein calorie malnutrition likely related to her recently progressing metastatic breast cancer and mental status changes. The hypercalcemia resolved following a dose of Zometa. Her mentation improved. She developed renal failure due to ATN requiring hemodialysis. She developed severe hypoglycemia likely due to decreased liver glycogenstores. She developed a UTI treated with antibiotics. She developed atrial fibrillation with rapid ventricular rate controlled with metoprolol. She has had episodes of hypotension and remains on Florinef. She developed maroon stools overnight last night due to a GI bleed, which was assessed as possibly due to acute colonic ischemia precipitated by hypotension and exacerbated by her anticoagulation.. The hemoglobin dropped to 6.9 earlier today. Her Eliquis therapy was held. She received RBCs x 1unit. The patient had been on adjuvant letrozole therapy following her 03/2021 presentation with early-stage breast cancer. During this hospital stay I discontinued the letrozole due to progression. I recommended tamoxifen as first- line antiestrogen therapy for metastatic disease. She has begun on tamoxifen. Tamoxifen carries a risk of thrombosis. She did develop a superficial venous thrombosis in the right cephalic vein as documented by ultrasound yesterday. Warm soaks can be applied Metastatic breast cancer with widespread bone metastases does not necessarily carry a poor prognosis. For patients with better functioning, first-line antiestrogen therapy for metastatic breast cancer carries a high response rate with overall survival approaching 5 years. However for this patient, the metastatic breast cancer has contributed significantly to her decline, especially worsened protein calorie malnutrition due to the mental status changes. The patient does have bony pain due to the metastases. She has been given doses of oxycodone as tolerated. I would recommend providing Tylenol as needed for bone pains. Given her advanced age and the very difficult hospital course with multiple adverse events, it is not clear that the patient will recover and the prognosis is poor. I would support a change in her CODE STATUS to DNR/DNI. It is known from the oncology literature that patients with metastatic cancer who undergo courses of ventilation on a respirator or who requireCPR have a very poor prognosis and would unlikely be able to be discharged from the hospital. In addition, given her multiple serious adverse medical events and the associated poor prognosis, continued aggressive measures, including ICU stay, pressor support, interventional GI procedures, andcontinued hemodialysis are likely futile. Given the patient's waxing and waning mental status, it is reasonable to invoke the HCP. I have hadmultiple discussions with Maggie, the patient's daughter and HCP. Maggie has made it clear that she wants the patient to continue as full code and to continue undergoing aggressive treatments for medicalproblems. She cites her strong episcopalian beliefs. She states that God will take her when it is her time. Maggie cites the patient's previous prolonged 2-month stay following a myocardial infarction that she survived. She also cites her father's experience undergoing failed CPR in the hospital setting as an example for when God is ready to end life. * Amarjit Ayala, DO - 05/31/2025 1:35 PM EDT ICU attending brief note: Patient well-known to the ICU service for recent admission for hypotension and A-fib with RVR. History is notable for admission with confusion, found to be hypercalcemic with widely metastatic breast CA. History of A-fib on Eliquis. Transferred out of the ICU on 05/29. Eliquis restarted at that time. Maroon stool overnight. Patient received 1 unit of red cells and 2 g of Balfaxar. Blood pressures have been marginal at times into the 90s. She was on Florinef for BP whichwas discontinued. Lopressor was increased. I presented to see the patient in bed 220 upon her return from endoscopy. Last measured blood pressure at 1:15 PM was 100/62 with a heart rate of 72. Per nurse on [facility] no procedures performed, reasoning at this point unclear. Reportedly multiple discussionswith the patient's daughter and she remains full code despite multiple subspecialty consultants recommending goals of care discussion and consideration for hospice. Patient is confused. Variable complaints of pain in her legs. Anxious, tearful. Asking for her son. HEENT is unremarkable. Neck is thin, no JVD. Heart rhythm is irregular, rate is normal. No appreciable murmurs. Chest is clear and diminished. Abdomen is soft, bowel sounds are quiet. Extremities with trace dependent edema. Sacral wounds noted. Laboratory/imaging: Reviewed. Phosphorus and magnesium are low, as is potassium. Impression: Metastatic breast CA complicated by hypercalcemia of malignancy, treated. History of A-fib with RVR on Eliquis. Hospital course complicated by hypotension, presumably related to atrial fibrillation. Known heart failure with reduced ejection fraction, off heart failure meds due to hypotension and ZEN. Course further complicated by acute blood loss anemia in the setting of restarting Eliquis. Transfused 1 unit this morning. Upper and lower scopes planned. Doubt if significant upper GIbleed given normal BUN. I was called given concerns regarding her blood pressure lability and planned procedures. Recommendations: Consider discontinuation of scheduled Lopressor and use as needed IV Lopressor if heart rates are elevated. She seemed to respond well to amiodarone, this could be reconsidered as well. Would resume Florinef, continue midodrine. Continue ongoing discussions regarding goals of care.I suspect she will respond well to restarting Florinef and lower dose metoprolol. Would continue tohold Eliquis. In general, I think I would tolerate a higher blood pressure in order to be able to use the rate controller medications more consistently. Maintain normal electrolyte profile. Replete phosphorus today. Replete magnesium. Replete potassium. Overall prognosis is poor. No reason for ICU transfer at this time. Subsequent Level 3 visit. Communicated above recommendations with Dr. Le. * Kia Le MD - 05/31/2025 12:40 PM EDT Images from the original note were not included. [facility] PROGRESS NOTE Date: 05/31/2025 Author: Kia Le MD Patient ID: Chayito Klein is a 79 y.o. female : 1945 MR#: [id number] 05/15/2025 SUBJECTIVE Patient seen and examined at bedside today. With in person historic interpreter Aure Gamino Overnight events noted. Patient was found to have blood per rectum and hemoglobin checked was foundto be 6.2. Her Eliquis was held and she received 1 unit of blood. This morning patient mentions that she gets very anxious and cries the whole time. She is going through a lot. She seems frustrated. Scheduled Medications PRN Medications IV Medications acetaminophen, 1,000 mg, q8h EMILY [Held by provider] apixaban, 2.5 mg, BID fluticasone propionate, 2 spray, Daily metoprolol tartrate, 37.5 mg, q6h midodrine, 10 mg, TID AC multivitamin, 1 each, Daily perflutren lipid microsphere (DEFINITY) 1.3 mL in sodium chloride 0.9% 8.7 mL injection, 10 mL, Once in imaging rosuvastatin, 10 mg, Nightly sodium chloride, 10 mL, BID tamoxifen, 20 mg, Daily thiamine, 100 mg, Daily dextrose 50%, 12.5 g, q15 min PRN dextrose 50%, 25 g, q15 min PRN dextrose, 15 g, q15 min PRN dextrose, 30 g, q15 min PRN glucagon injection, 1 mg, Once PRN LORazepam, 1 mg, q6h PRN LORazepam, 0.5 mg, Once PRN metoprolol tartrate, 2.5 mg, q4h PRN naloxone, 0.04 mg, PRN OLANZapine, 5 mg, BID PRN oxyCODONE, 5 mg, q4h PRN polyetheylene glycol, 17 g, Daily PRN sodium chloride, 100 mL, q5 min PRN sodium chloride, 10 mL, PRN sodium chloride, 42 mL/hr, PRN OBJECTIVE Vitals: 05/31/25 0741 05/31/25 0845 05/31/25 0930 05/31/25 1130 BP: 105/88 101/71 90/68 BP Location: Patient Position: Pulse: 52 88 64 Resp: 16 Temp: 36.2 ??C (97.2 ??F) 36.6 ??C (97.9 ??F) 36.5 ??C (97.7 ??F) TempSrc: Temporal SpO2: 96% 98% Weight: Height: Intake/Output Summary (Last 24 hours) at 05/31/2025 1240 Last data filed at 05/31/2025 1100 Gross per 24 hour Intake 300 ml Output 2300 ml Net -2000 ml Wt Readings from Last 1 Encounters: 05/28/25 0600 81.5 kg (179 lb 10.8 oz) 05/26/25 1310 67.1 kg (148 lb) 05/25/25 0751 67.5 kg (148 lb 13 oz) 05/25/25 0600 67.5 kg (148 lb 13 oz) 05/24/25 1600 65.5 kg (144 lb 6.4 oz) 05/23/25 1225 62.2 kg (137 lb 1.6 oz) 05/15/25 2257 48.6 kg (107 lb 3.2 oz) 05/15/25 1749 49.9 kg (110 lb) PHYSICAL EXAM: Gen: Chronically ill-appearing alert but disoriented and confused, CV -RRR no MGR Lungs -diminished air entry at the bases Abd - Soft, non-tender, non-distended Extremities -right upper extremity hematoma noted. Dry skin and lower extremities Neuro -alert but disoriented very anxious RESULTS: CBC BMP Results from last 7 days Lab Units 05/31/25 1017 05/31/25 0307 05/30/2561105/29/25 0504 05/28/25 0357 WBC AUTO K/mcL -- 6.4 8.2 8.5 8.5 7.9 HEMOGLOBIN g/dL 7.4* 6.2* 7.9* 7.6* 7.6* 7.5* HEMATOCRIT % 23.1* 19.7* 25.3* 24.9* 24.9* 24.7* PLATELETS K/mcL -- 175 228 214 214 231 LYMPHS PCT AUTO % -- 18.9 18.8 14.7 14.9 MONO PCT AUTO % -- 9.3 10.0 8.2 9.2 EOS PCT AUTO % -- 3.0 1.9 2.5 2.5 Results from last 7 days Lab Units 05/31/25 0307 05/30/25 0605/29/25 0504 05/28/25 2051 SODIUM mmol/L 141 140 133 138 POTASSIUM mmol/L 3.2* 3.1* 3.5 3.4* CHLORIDE mmol/L 102 101 95* 100 CO2 mmol/L 34* 31 30 26 ANION GAP 5 8 8 12* BUN mg/dL 17 28* 26* 25 CREATININE mg/dL 2.29* 3.55* 2.98* 3.04* CALCIUM mg/dL 7.6* 8.0* 8.0* 7.5* MAGNESIUM mg/dL 1.8* 2.1 2.1 1.8* PHOSPHORUS mg/dL 2.0* 3.2 3.0 2.0* Results from last 7 days Lab Units 05/31/25 1221 05/31/25 1133 05/31/25 0745 05/31/25 0440 05/31/25 0307 POCT GLUCOSE mg/dL 114* 66* 74 74 -- GLUCOSE mg/dL -- -- -- -- 74 Results from last 7 days Lab Units 05/30/25 0612 05/28/25 0357 05/27/25 0417 05/26/25 0533 05/25/25 1823 05/25/25 1350 05/25/25 0559 AST unit/L 45* 47* 58* 68* 76* 73* 81* ALT unit/L 14 15 21 22 23 22 21 No results found for this or any previous visit (from the past week). Imaging: Vascular US duplex upper extremity venous right Narrative: STUDY: VAS US DUPLEX UPPER EXT VENOUS RIGHT COMPARISON: None INDICATION: right upper extremity swelling/pain TECHNIQUE: Multiple sonographic images of the right upper extremity were obtained with and without color flow interrogation and spectral duplex waveform analysis. FINDINGS: On the right, the visualized internal jugular vein demonstrates color flow, normal phasic waveforms, and compressibility. The visualized subclavian vein demonstrates color flow and phasic waveforms. Color flow is demonstrated within the visualized axillary vein. The brachial veins demonstrates color flow, phasic waveforms and compressibility. Thrombus seen in the right cephalic vein in the upper forearm. Basilic vein not visualized. Impression: Thrombus seen in the right cephalic vein in the upper forearm. No deep venous thrombosis. -------- FINAL REPORT -------- Dictated By: Roula Macario Dictated Date: 05/30/2025 16:07 ET Assigned Physician: Roula Macario Reviewed and Electronically Signed By: Roula Macario Signed Date: 05/30/2025 16:08 ET Workstation ID: [id number] Transcribed By: Self Edit Transcribed Date: 05/30/2025 16:07 ET ASSESSMENT & PLAN 79-year-old Ecuadorean-speaking female with PMH breast cancer follows with Dr. Joseph, hypertension, leukemia, HFrEF, COPD, paroxysmal atrial fibrillation Eliquis downgraded from the ICU on 05/29/2025. Patient admitted on 05/15/2025. Patient with metastatic disease from her breast cancer. Acute blood loss anemia Questionable acute colonic ischemia worsened by chronic anticoagulation Patient received 1 unit of blood earlier this morning when hemoglobin was 6.2. Repeated hemoglobin above 7.0 Patient seen by GI Recommending EGD/flex sig today. Patient kept n.p.o. Continue with IV PPI twice daily Acute metabolic encephalopathy on admission seems to have resolved at this time. Hypercalcemia ZEN/ATN leading to end-stage renal disease started on hemodialysis Status post tunneled catheter placement on 05/27/2025 first hemodialysis on 05/28/20[address] No obstruction seen by CT scan. Hypercalcemia due to metastatic breast CA Patient to receive HD tomorrow Continue to follow renal recommendations Hypercalcemia resolved A-fib with RVR with improved heart rates on metoprolol Patient also on amiodarone which has been discontinued by cardiology. Increase metoprolol to 37.5 4times daily. Average heart rates at rest should be less than 110 Eliquis to be held Echo showed EF of 30 to 35% with mild to moderate MR and moderate TR Hypotension continues , florinef was discontinued , on midodrine HFrEF: Holding Lasix Entresto and spironolactone given low BP at this time. UTI completed treatment Metastatic breast cancer -diagnosed in 2020, s/p partial mastectomy right, declined adjuvant radiation. Had bone scan in outpatient which showed multiplie bone mets. Underwent bone biopsy on 05/20, path revealed breast canceras primary, MM workup was negative. -Dr. Joseph was consulted during admission, continues on tamoxifen (letrozole was discontinued). Right upper extremity hematoma noted. Ultrasound shows thrombus in the right cephalic vein in the upper forearm Hyperlipidemia on statin PT evaluation to be done Nutrition consult DVT Prophylaxis Eliquis (holding it) Full Code - Confirmed discussed with Dr. Joseph to see if goals of care discussion can be done with the daughter apparently daughter wants patient to be full code and all interventions to be done. Disposition patient continues to be chronically ill we will continue to monitor. Poor prognosis Pt still remains hypotensive , low threshold to transfer her to ICU, will have ICU attending see her again * Rosamaria Dye RN - 05/31/2025 12:06 PM EDT Images from the original note were not included. Wound Care Subsequent Consult Visit Date: 05/31/2025 Patient Name: Chayito Klein Date of : 1945 Pertinent Labs: Albumin Date Value Ref Range Status 05/30/2025 2.2 (L) 3.2 - 5.0 g/dL Final Albumin, Serum Date Value Ref Range Status 05/15/2025 2.2 (L) 2.9 - 4.1 g/dL Final WBC Date Value Ref Range Status 05/31/2025 6.4 4.8 - 10.8 K/mcL Final WBC, Urine Date Value Ref Range Status 05/24/2025 >4,000 (H) 0 - 4 /HPF Final Hemoglobin A1C Date Value Ref Range Status 05/25/2025 7.6 (H) <6.5 % Final Glucose POCT Date Value Ref Range Status 05/31/2025 74 70 - 100 mg/dL Final Wound Assessment: Wound Venous Ulcer 05/24/25 Tibial Left;Lateral;Outer (Active) Wound Image Dressing was changed yesterday by e and small wound is stable 05/30/25 0952 Wound Bed Tissue Assessment [place];Red 05/31/25 Ivana-Wound Assessment Unable to assess 05/30/251999 Drainage Description Serosanguineous 05/27/25 1200 Drainage Amount Scant 05/27/25 1200 Treatments Cleansed 05/27/25 1200 Dressing Xeroform;Gauze;Billy 05/31/25 0000 Dressing Changed Changed 05/31/25 Dressing Status Clean;Dry;Intact 05/30/251999 Edges Poorly defined 05/25/25 180 Wound Pressure Injury 05/27/25 Hip Right (Active) Wound Image, Wound Assessment: Pale pink 05/31/25 103 Wound Bed Tissue Assessment [place];Pale 05/31/25 103 Ivana-Wound Assessment Unable to assess 05/31/25 Wound Length (cm) 2.2 cm 05/31/25 103 Wound Width (cm) 1.5 cm 05/31/25 1035 Wound Surface Area (cm^2) 2.59 cm^2 05/31/25 1035 Wound Depth (cm) 0.1 cm 05/31/25 1035 Wound Volume (cm^3) 0.173 cm^3 05/31/25 1035 Wound Healing % 69 05/31/25 1035 Treatments Cleansed 05/31/25 1035 Dressing Xeroform;Foam 05/31/25 1035 Dressing Changed Changed 05/31/25 1035 Dressing Status Clean;Dry;Intact 05/31/25 0000 Pressure Injury Stage DTPI 05/27/25 1200 Wound Pressure Injury 05/27/25 Buttocks Right (Active) Wound Image Darker skin on RT buttock and boggy and may slough off enlarging wound 05/31/25 1020 Wound Bed Tissue Assessment Unable to assess 05/31/25 0000 Ivana-Wound Assessment Unable to assess 05/31/25 0000 Wound Length (cm) 4.5 cm 05/27/25 1039 Wound Width (cm) 1.5 cm 05/27/25 1039 Wound Surface Area (cm^2) 5.3 cm^2 05/27/25 1039 Wound Depth (cm) 0.1 cm 05/27/25 1039 Wound Volume (cm^3) 0.353 cm^3 05/27/25 103 Treatments Cleansed 05/27/25 1200 Dressing Xeroform;Foam 05/31/25 1024 Dressing Changed Changed 05/31/25 1024 Dressing Status Clean;Dry;Intact 05/31/25 0000 Pressure Injury Stage DTPI 05/27/25 1200 Wound Pressure Injury 05/31/25 Coccyx (Active) Wound Image Wound Assessment: red, skin sloughed off with incontinence cleansing- patient with rectal bleed 05/31/25 1029 Wound Bed Tissue Assessment Red 05/31/25 1030 Wound Length (cm) 6 cm 05/31/25 1029 Wound Width (cm) 7 cm 05/31/25 1029 Wound Surface Area (cm^2) 32.99 cm^2 05/31/25 1029 Wound Depth (cm) 0.1 cm 05/31/25 1029 Wound Volume (cm^3) 2.199 cm^3 05/31/25 1029 Dressing Other (Comment);Foam 05/31/25 1030 Dressing Changed Changed 05/31/25 1030 Pressure Injury Stage 2 05/31/25 1030 Support Surface: Patient is on Isotour bed and [place] was applied to assist with turning and reposition schedule. Patient was positioned towards left side with pillows propped behind right back. Boots are on heels and pillow placed in between legs. Wound Summary Assessment: see above Wound Plan: Patient is NPO for GI procedure. Otherwise her nutritional oral intake is poor. Patientwith metastatic breast cancer throughout body and at this time remains full code. 05/31/2025 12:06 PM EDT * Edilma Reeves MD - 05/31/2025 11:33 AM EDT Images from the original note were not included. [facility] Cardiology- Cardiology Follow-up Note PATIENT NAME: Chayito Klein ([id number]) DOS: 05/31/25 ASSESSMENT & PLAN 79 y.o. female who presents for an extended hospital stay in the setting of acute kidney injury/ATNinitiated on dialysis this admission, widespread metastatic breast cancer. Prior to this, she had ahistory of chronic A-fib that was rate controlled and for which she was on Eliquis for CVA prophylaxis at a reduced dose. Her hospitalization has been complicated by hypotension that is slowly resolving, delirium/anxiety, and now possible GI bleeding with an acute drop in hemoglobin and hematocrit.Prognosis given all of these risk factors is extremely poor in the short and long-term. The patientis still full code but at this point, this would be in my opinion medically futile. 1. A-fib with RVR-heart rates remain reasonably controlled as long as she is receiving metoprolol. I would NOT hold metoprolol unless systolic blood pressure is less than 90 mmHg. It was held last night which is likely what accounts for her increased heart rate transiently. At this point, I would not consider this patient a candidate for invasive procedures such as AV node ablation and permanent pacemaker placement. This would not be in her best interest. Therefore, we can relax targets if necessary as our only option is rate control. Transient elevations in heart rate coinciding with anxietyare not of significant concern. At this point, we will need to hold Eliquis until GI bleeding has been resolved or at least until crits improved. This patient is not a watchman candidate. 2. Hyperlipidemia-continue current rosuvastatin 3. Hypotension-patient was hypertensive yesterday, we discontinued Florinef, she is not overly hypotensive today but remains on the low side of normal. She is asymptomatic from this and euvolemic on exam. Would continue monotherapy with metoprolol for rate control and current midodrine. Will sign off at this point. We do not have too much more that we can offer from a cardiac standpoint without incurring significant risk. Please feel free to reconsult with additional questions or issues. SUBJECTIVE Patient is speaking somewhat nonsensically in Ecuadorean. She is awake and alert. She is calm and cooperative. PAST MEDICAL HISTORY She has no past medical history on file. PAST SURGICAL HISTORY She has a past surgical history that includes us guided breast biopsy right (Right, 2020). SOCIAL HISTORY Tob: reports that she has never smoked. She has never used smokeless tobacco. ETOH: reports that she does not currently use alcohol. Drug: reports no history of drug use. FAMILY HISTORY She family history is not on file. MEDICATIONS: SCHEDULED MEDICATIONS: MEDSSCHEDULED[1] PRN MEDICATIONS: MEDSPRN[2] DRIPS: MEDSCONTINUOUS[3] ALLERGIES: She has no known allergies. OBJECTIVE Vitals: 05/31/25 1130 BP: 90/68 Pulse: 64 Resp: Temp: 36.5 ??C (97.7 ??F) SpO2: 98% Body mass index is 32.86 kg/m??. PHYSICAL EXAMINATION: APPEARANCE: Alert and in no acute distress EYES: PERRL, conjunctiva and sclera normal HENT: AT/NC, MMM NECK: JVP less then 8cm H2O, No bruits., Neck supple HEART: Irregularly irregular, no murmurs gallops LUNG: clear to auscultation ABDOMEN: Bowel sounds normoactive, no bruits, soft, non-tender, without organomegaly or palpable masses EXTREMITIES: Extremities warm and well perfused without edema, 2+ peripheral pulses in all extremities LABS: Lab Results Component Value Date GLUCOSE 74 05/31/2025 CALCIUM 7.6 (L) 05/31/2025 NA 141 05/31/2025 K 3.2 (L) 05/31/2025 CO2 34 (H) 05/31/2025 CL 102 05/31/2025 BUN 17 05/31/2025 CREATININE 2.29 (H) 05/31/2025 Lab Results Component Value Date WBC 6.4 05/31/2025 HGB 7.4 (L) 05/31/2025 HCT 23.1 (L) 05/31/2025 MCV 87.1 05/31/2025 PLT 175 05/31/2025 Lab Results Component Value Date INR 1.6 05/31/2025 INR 1.2 05/28/2025 INR 1.2 05/25/2025 No results found for: CKTOTAL , CKMB , CKMBINDEX , TROPONINI , HSTROPI CARDIOVASCULAR TESTING 05/15/25 TRANSTHORACIC ECHOCARDIOGRAM (TTE) COMPLETE (CONTRAST/BUBBLE/3D PRN) 05/27/2025 05/26/2025 Interpretation Summary Left ventricle cavity size is normal. Left ventricular systolic function is moderately decreased with an ejection fraction of 30-35%. Moderate LV global hypokinesis is present. Left ventricle wall thickness is normal. Abnormal left ventricular septal motion. Right ventricle cavity is mildly enlarged. Right ventricular systolic function is mildly reduced. Pulmonary artery systolic pressure is ~49 mmHg. The atria are dilated. Right atrial pressure is ~3 mmHg. Mild to moderate mitral regurgitation. Tricuspid valve demonstrates moderate regurgitation. See remainder of the report for additional findings. Signed by: Jhoan Tirado MD on 05/27/2025 9:01 AM No results found for this or any previous visit. No results found for this or any previous visit. Thank you for allowing us to participate in this consultation. Please feel free to contact us with questions or concerns. We will continue to follow as an outpatient and are signing off. . [facility] [address] [place] [address], [address] [place] [id number] [1] acetaminophen, 1,000 mg, oral, q8h EMILY [Held by provider] apixaban, 2.5 mg, oral, BID fluticasone propionate, 2 spray, Each Nostril, Daily metoprolol tartrate, 37.5 mg, oral, q6h midodrine, 10 mg, oral, TID AC multivitamin, 1 each, oral, Daily perflutren lipid microsphere (DEFINITY) 1.3 mL in sodium chloride 0.9% 8.7 mL injection, 10 mL, intravenous, Once in imaging rosuvastatin, 10 mg, oral, Nightly sodium chloride, 10 mL, intravenous, BID tamoxifen, 20 mg, oral, Daily thiamine, 100 mg, oral, Daily [2] PRN medications: dextrose 50%, dextrose 50%, dextrose, dextrose, glucagon injection, LORazepam,LORazepam, metoprolol tartrate, naloxone, OLANZapine, oxyCODONE, polyetheylene glycol, sodium chloride, Insert peripheral IV AND Maintain IV access AND Saline lock IV AND sodium chloride AND sodium chloride, sodium chloride [3] * Carlos Alberto Islas MD - 05/31/2025 7:28 AM EDT Images from the original note were not included. Progress Note CHIEF COMPLAINT F/u ZEN SUBJECTIVE Seen and examined Comfortable in bed MEDICAL HISTORY Medical History[1] MEDICATIONS MEDSSCHEDULED[2] MEDSPRN[3] MEDSCONTINUOUS[4] OBJECTIVE Vital signs in last 24 hours: Visit Vitals BP 97/60 Pulse 98 Temp 36.2 ??C (97.2 ??F) Resp 16 Intake/Output last 24 hours: Intake/Output Summary (Last 24 hours) at 05/31/2025 0728 Last data filed at 05/31/2025 0630 Gross per 24 hour Intake -- Output 2950 ml Net -2950 ml Weights: Admission Weight: Weight: 49.9 kg (110 lb) Wt Readings from Last 3 Encounters: 05/28/25 81.5 kg (179 lb 10.8 oz) 01/30/25 66.2 kg (146 lb) 07/24/24 68 kg (150 lb) Physical Exam: General: No acute distress HEENT: Normocephalic, atraumatic, anicteric Cardiovascular: S1 S2 normal Respiratory: unlabored Gl: soft non-distended Extremities: No cyanosis Neurological: Alert Integumentary: no rash Psych: Calm, cooperative LABS Results from last 7 days Lab Units 05/31/25 0307 05/30/25 0612 05/29/25 0504 WBC AUTO K/mcL 6.4 8.2 8.5 8.5 HEMOGLOBIN g/dL 6.2* 7.9* 7.6* 7.6* HEMATOCRIT % 19.7* 25.3* 24.9* 24.9* MCV FL 87.1 84.6 85.3 85.3 PLATELETS K/mcL 175 228 214 214 Results from last 7 days Lab Units 05/31/25 03005/30/25 0612 05/29/25 0504 CREATININE mg/dL 2.29* 3.55* 2.98* BUN mg/dL 17 28* 26* SODIUM mmol/L 141 140 133 POTASSIUM mmol/L 3.2* 3.1* 3.5 CHLORIDE mmol/L 102 101 95* CO2 mmol/L 34* 31 30 Phosphorus Date Value Ref Range Status 05/31/2025 2.0 (L) 2.5 - 4.5 mg/dL Final 05/30/2025 3.2 2.5 - 4.5 mg/dL Final 05/29/2025 3.0 2.5 - 4.5 mg/dL Final Vitamin D, 1, 25-Dihydroxy Date Value Ref Range Status 05/24/2025 19 (L) 20 - 79 pg/mL Final Comment: Vitamin D 1, 25 dihydroxy levels should be primarily used to assess Vitamin D status in patients with renal disease and hypercalcemia. Vitamin D 1,25-dihydroxy levels are generally less than 5 pg/mL in end stage renal disease patients. The preferred initial test for assessing Vitamin D status in the general population is Vitamin D 25-hydroxy (VITD). Test performed at [facility], [address] , [place] [address] Rozina Peterson MD, PhD - Trailer Technician PTH Date Value Ref Range Status 05/16/2025 9.7 (L) 18.5 - 88.0 pcg/mL Final No results found for: IRON , TIBC , FERRITIN No results found for: COLORUA , CLARITYUA , SPECGRAVUA , PHUA , PROTUA , GLUCOSEUA , KETONESUA , BILIRUBINUA , BLOODUA , UROBILINOGUA , NITRITEUA IMPRESSION and PLAN ZEN Hypokalemia HFrEF Metastatic breast CA First HD on 05/28 S/p tunneled catheter placement on 05/27 ZEN due to acute tubular injury HD dependent Hypotensive earlier No obstruction by CT scan Not c/w contrast nephropathy Hypercalcemia due to metastatic breast CA Baseline creatinine is 0.7-0.8 mg/dl LVEF 30-35% REC HD tomorrow Replace K Blood transfusion for Hb < 7 Goals of care discussion Follow kidney function and electrolytes Carlos Alberto Islas MD [1] History reviewed. No pertinent past medical history. [2] acetaminophen, 1,000 mg, oral, q8h EMILY [Held by provider] apixaban, 2.5 mg, oral, BID fluticasone propionate, 2 spray, Each Nostril, Daily metoprolol tartrate, 37.5 mg, oral, q6h midodrine, 10 mg, oral, TID AC multivitamin, 1 each, oral, Daily perflutren lipid microsphere (DEFINITY) 1.3 mL in sodium chloride 0.9% 8.7 mL injection, 10 mL, intravenous, Once in imaging rosuvastatin, 10 mg, oral, Nightly sodium chloride, 10 mL, intravenous, BID tamoxifen, 20 mg, oral, Daily thiamine, 100 mg, oral, Daily [3] PRN medications: dextrose 50%, dextrose 50%, dextrose, dextrose, glucagon injection, LORazepam,LORazepam, metoprolol tartrate, naloxone, OLANZapine, oxyCODONE, polyetheylene glycol, sodium chloride, Insert peripheral IV AND Maintain IV access AND Saline lock IV AND sodium chloride AND sodium chloride, sodium chloride [4] * ANY French - 05/31/2025 3:43 AM EDT Paged regarding 1 large maroon-colored bowel movement Blood pressure 125/73, pulse 115, 100% on room air, respiratory rate 16, afebrile - Guaiac positive - STAT morning labs were drawn (05/30: H&H 7.9/25.3) - 05/31: Hemoglobin 6.2, hematocrit 19.7, platelets 175. Potassium 3.2, creatinine 2.29, GFR 21, calcium 7.6, phosphorus 2.1, magnesium 1.8. - PCC 2000 units ordered for anticoagulation reversal - High risk of decompensation and this admission she had labile blood pressures requiring ICU admission for hypotension - Holding eliquis 2.5 mg twice daily - Transfuse 1 unit RBC - Trend H&H Q6h - NPO overnight - GI consult in the morning Discussed w/ bedside nurse, Yvon Funes, and overnight pharmacist Was able to update her daughter Maggie via phone call * Daniela Theodore RD - 05/30/2025 2:27 PM EDT 05/30/2025 @ 2:27 PM EDT Nutrition Follow Up Note [employer] Services: Language: Patient off the floor Reason for RD Intervention: Assessment Type: Follow-up Reason for Assessment: High MST Score Anthropometrics: Height: 157.5 cm (62 ) Weight: (n/a) BMI (Calculated): 32.9 BMI Class: Normal IBW (lbs): 110 Recent Weight Change: Yes Other (Comment): If recorded weight history accurate 27% loss over 3 months Current Diet and Supplements: Dietary Orders (From admission, onward) Start Ordered 05/29/25 0903 Adult diet [facility]; Cardiac; Cardiac Diet effective now Question Answer Comment Location [facility] Diet Type (req) Cardiac Diet Type (cardiac) Cardiac 05/29/25 0902 05/18/25 1235 Dietary nutrition supplements Two times daily (BID); [facility]; Standard Oral Supplement Continuous Comments: [place] or vanilla Question Answer Comment Frequency Two times daily (BID) Location [facility] Supplements Standard Oral Supplement 05/18/25 1234 History of presenting illness: Patient is a 79 y.o. female with a history of Medical History[1] Surgical History[2] admitted 05/15/2025 with Acute metabolic encephalopathy. Food/Nutrition History: Previously prescribed diets: (Per daughter: pt with weight loss and loss of appetite for past few months. Daughter encourages patient to eat, but pt consuming,75% of usual. Daughter started providingEnsure at home. Noted patient will not eat on her own needs assistance with meals.) Weight History: Wt Readings from Last 10 Encounters: 05/28/25 81.5 kg (179 lb 10.8 oz) 01/30/25 66.2 kg (146 lb) 07/24/24 68 kg (150 lb) 12/16/23 69.9 kg (154 lb 3.2 oz) 07/04/23 73 kg (161 lb) 06/15/23 72.1 kg (159 lb) 01/12/23 76.7 kg (169 lb 3.2 oz) 12/15/22 74.8 kg (165 lb) 06/21/22 71.2 kg (157 lb) 06/16/22 76.7 kg (169 lb) Subjective Assessment: Patient had dialysis today with 1L removed. Her appetite has been fair, ~50% of meals. No nausea, vomiting, abdominal pain or constipation reported, +BM 05/29. Weights: 81.7kg (05/28); 67.1kg (05/26); 67.5kg (05/25). Will request weight be taken. Nutrition-Related Lab Values: Results from last 7 days Lab Units 05/30/25 1152 05/30/25 0822 05/30/25 0612 SODIUM mmol/L -- -- 140 POTASSIUM mmol/L -- -- 3.1* PHOSPHORUS mg/dL -- -- 3.2 MAGNESIUM mg/dL -- -- 2.1 CHLORIDE mmol/L -- -- 101 CO2 mmol/L -- -- 31 BUN mg/dL -- -- 28* CREATININE mg/dL -- -- 3.55* EGFR mL/min/1.73m2 -- -- 12* CALCIUM mg/dL -- -- 8.0* BILIRUBIN TOTAL mg/dL -- -- 0.3 ALK PHOS unit/L -- -- 195* ALT unit/L -- -- 14 AST unit/L -- -- 45* POCT GLUCOSE mg/dL 73 < > -- GLUCOSE mg/dL -- -- 77 WBC AUTO K/mcL -- -- 8.2 < > = values in this interval not displayed. No results found for: LIPASE Results from last 7 days Lab Units 05/25/25 0559 HEMOGLOBIN A1C % 7.6* Medications: MEDSSCHEDULED[3] CONTINUOUS: MEDSCONTINUOUS[4] MEDSPRN[5] Height: 157.5 cm (62 ) Temp: 36.1 ??C (97 ??F) Food/Nutrition-Current Status: Intake Type: P.O. Current Diet Status: Appropriate Current Supplement Status: Appropriate Appetite: Fair Intake Amount (%): 50-75% Intake Assessment: Variable Main IVF: None Main IVF Rate (mL/hr): 50 Propofol?: No Barriers: Cognitive, Language (Ecuadorean speaking) Nutrition Focused Physical Findings: Overall Appearance: pt lying in bed Digestive System (Mouth to Rectum): Appetite change Nerves and Cognition: Alert, Other (Comment) (agitated) Skin: left tibial venous ulcer, pressure injury right hip DTI, pressure injury right buttock DTI- [facility] Loss of Fat Location: Orbital, Ribs, Triceps Loss of Fat Amt-Orbital: Moderate Loss of Fat Amt-Triceps: Moderate Loss of Fat Amt-Ribs: Moderate Loss of Muscle Location: Temples, Clavicle, Interosseous Loss of Muscle Amt-Temples: Moderate Loss of Muscle Amt-Clavicle: Moderate Loss of Muscle Amt-Inter Musc: Moderate Nutrition Diagnosis: Code Type: Severe-Acute (E43) Severe-Acute Criteria: Weight Loss >7.5%/3 mos, Moderate Body Fat Depletion, Moderate Muscle Mass Depletion Status: Other (Comment) (Ongoing) Diagnosis: Malnutrition Etiology: Increased demand for nutrient, Changes in taste and appetite or preference Symptoms: 27% weight loss over 3 months. moderate muscle and fat depletion Additional Nutrition Diagnosis?: Yes Status: (Ongoing) Diagnosis: Inadequate Oral Intake Etiology: Physiologic causes, Changes in taste and appetite or preference Symptoms: weight loss, muscle and fat depletion Nutrition Interventions: Meals/Snacks, Medical Food Supplement, Vitamin/Mineral Supplement Medical Food Supplement(s): Ensure Plus Education Materials Reviewed: None today, will follow for education needs with family as able priorto discharge. Goals: Patient will consume greater than or equal to 75% meals., Patient will consume ONS., Improvement inrenal labs., Electrolytes within normal range., Maintain weight., Stooling appropriately., and Maintain skin integrity. Coordination of Patient Care: Verbal discussion with RN. Monitoring/Evaluation: Fluid/Beverage Intake, Food Intake, Medical Food Supp/Oral Nutrition Supp, Weight, Renal/Electrolyte Profile, Gastrointestinal Profile Follow Up: Nutrition Priority Level: High RD remains available and will continue to follow. Signature: Daniela Theodore RD [1] History reviewed. No pertinent past medical history. [2] Past Surgical History: Procedure Laterality Date US GUIDED BREAST BIOPSY RIGHT Right 2020 [3] acetaminophen, 1,000 mg, oral, q8h EMILY apixaban, 2.5 mg, oral, BID fluticasone propionate, 2 spray, Each Nostril, Daily metoprolol tartrate, 37.5 mg, oral, q6h midodrine, 10 mg, oral, TID AC multivitamin, 1 each, oral, Daily perflutren lipid microsphere (DEFINITY) 1.3 mL in sodium chloride 0.9% 8.7 mL injection, 10 mL, intravenous, Once in imaging rosuvastatin, 10 mg, oral, Nightly sodium chloride, 10 mL, intravenous, BID tamoxifen, 20 mg, oral, Daily thiamine, 100 mg, oral, Daily [4] [5] PRN medications: dextrose 50%, dextrose 50%, dextrose, dextrose, glucagon injection, LORazepam,metoprolol tartrate, naloxone, OLANZapine, oxyCODONE, polyetheylene glycol, sodium chloride, Insertperipheral IV AND Maintain IV access AND Saline lock IV AND sodium chloride AND sodium chloride * Kia Le MD - 05/30/2025 2:13 PM EDT Images from the original note were not included. [facility] PROGRESS NOTE Date: 05/30/2025 Author: Kai Le MD Patient ID: Chayito Klein is a 79 y.o. female : 1945 MR#: [id number] 05/15/2025 SUBJECTIVE Patient seen and examined at bedside today. Along with daughter present at bedside. Patient startedon dialysis and was very anxious given IV Ativan after which she got a little better. Overnight also patient had another anxiety attack. Was given Iv Ativan with good results. While on dialysis her heart rate was in the 130s.. Better today. Scheduled Medications PRN Medications IV Medications acetaminophen, 1,000 mg, q8h EMILY apixaban, 2.5 mg, BID fluticasone propionate, 2 spray, Daily metoprolol tartrate, 37.5 mg, q6h midodrine, 10 mg, TID AC multivitamin, 1 each, Daily perflutren lipid microsphere (DEFINITY) 1.3 mL in sodium chloride 0.9% 8.7 mL injection, 10 mL, Once in imaging rosuvastatin, 10 mg, Nightly sodium chloride, 10 mL, BID tamoxifen, 20 mg, Daily thiamine, 100 mg, Daily dextrose 50%, 12.5 g, q15 min PRN dextrose 50%, 25 g, q15 min PRN dextrose, 15 g, q15 min PRN dextrose, 30 g, q15 min PRN glucagon injection, 1 mg, Once PRN LORazepam, 0.5 mg, Once PRN metoprolol tartrate, 2.5 mg, q4h PRN naloxone, 0.04 mg, PRN OLANZapine, 5 mg, BID PRN oxyCODONE, 5 mg, q4h PRN polyetheylene glycol, 17 g, Daily PRN sodium chloride, 100 mL, q5 min PRN sodium chloride, 10 mL, PRN OBJECTIVE Vitals: 05/30/25 1100 05/30/25 1115 05/30/25 1120 05/30/25 1153 BP: (!) 145/89 139/79 (!) 143/81 BP Location: Right arm;Lower Patient Position: Lying Pulse: 81 80 82 78 Resp: 16 Temp: 36.1 ??C (97 ??F) TempSrc: Temporal SpO2: 94% Weight: Height: Intake/Output Summary (Last 24 hours) at 05/30/2025 1413 Last data filed at 05/30/2025 1351 Gross per 24 hour Intake 260 ml Output 3050 ml Net -2790 ml Wt Readings from Last 1 Encounters: 05/28/25 0600 81.5 kg (179 lb 10.8 oz) 05/26/25 1310 67.1 kg (148 lb) 05/25/25 0751 67.5 kg (148 lb 13 oz) 05/25/25 0600 67.5 kg (148 lb 13 oz) 05/24/25 1600 65.5 kg (144 lb 6.4 oz) 05/23/25 1225 62.2 kg (137 lb 1.6 oz) 05/15/25 2257 48.6 kg (107 lb 3.2 oz) 05/15/25 1749 49.9 kg (110 lb) PHYSICAL EXAM: Gen: Chronically ill-appearing alert but disoriented and confused, CV -RRR no MGR Lungs -diminished air entry at the bases Abd - Soft, non-tender, non-distended Extremities -right upper extremity hematoma noted. Dry skin and lower extremities Neuro -alert but disoriented very anxious RESULTS: CBC BMP Results from last 7 days Lab Units 05/30/25 0612 05/29/25 0504 05/28/25 0357 05/27/25 0417 WBC AUTO K/mcL 8.2 8.5 8.5 7.9 10.2 HEMOGLOBIN g/dL 7.9* 7.6* 7.6* 7.5* 8.4* HEMATOCRIT % 25.3* 24.9* 24.9* 24.7* 27.8* PLATELETS K/mcL 228 214 214 231 252 LYMPHS PCT AUTO % 18.8 14.7 14.9 15.5 MONO PCT AUTO % 10.0 8.2 9.2 12.6 EOS PCT AUTO % 1.9 2.5 2.5 2.2 Results from last 7 days Lab Units 05/30/25 0612 05/29/25 0504 05/28/25 2051 05/28/25 1427 05/28/25 0357 SODIUM mmol/L 140 133 138 140 139 POTASSIUM mmol/L 3.1* 3.5 3.4* 4.3 3.4* CHLORIDE mmol/L 101 95* 100 107 100 CO2 mmol/L 31 30 26 26 28 ANION GAP 8 8 12* 7 11 BUN mg/dL 28* 26* 25 21 59* CREATININE mg/dL 3.55* 2.98* 3.04* 2.29* 5.33* CALCIUM mg/dL 8.0* 8.0* 7.5* 6.7* 8.1* MAGNESIUM mg/dL 2.1 2.1 1.8* -- 2.0 PHOSPHORUS mg/dL 3.2 3.0 2.0* -- 3.3 Results from last 7 days Lab Units 05/30/25 1152 05/30/25 0822 05/30/25 0612 05/30/25 0031 05/29/25 1707 POCT GLUCOSE mg/dL 73 72 -- 103* 79 GLUCOSE mg/dL -- -- 77 -- -- Results from last 7 days Lab Units 05/30/25 0612 05/28/25 0357 05/27/25 0417 05/26/25 0533 05/25/25 1823 05/25/25 1350 05/25/25 0559 AST unit/L 45* 47* 58* 68* 76* 73* 81* ALT unit/L 14 15 21 22 23 22 21 No results found for this or any previous visit (from the past week). Imaging: IR Insert Tunneled CVC wo Port or Pump More 5yrs Left Narrative: INDICATIONS: HD catheter HISTORY: Patient is an 79-year-old female with history of acute kidney injury TECHNIQUE: Patient was brought to angiography suite placed in a supine position. Ultrasound imagingdemonstrates venous patency. The patient's right neck was assessed and subsequently prepped and draped in the usual and sterile fashion. Maximum sterile barrier technique was used. A timeout was performed. 2% lidocaine was used for skin anesthesia. Moderate intravenous sedation was initiated and maintained for approximately 30 minutes while the patient was independently monitored by the radiologynurse under the supervision of the interventional radiologist. A total of 0.5 mg of Versed and 25 mcg of fentanyl administered during the procedure. Under continuous ultrasound guidance, a micropuncture needle was advanced into the vein. There was dark venous return, a 0.018 wire was advanced centrally. A 3-5 sheath dilator was then advanced overthe wire. The inner dilator and wire were removed and an 0.035 wire was advanced centrally. Attention was then turned to the tunnel. Additional LIDOCAINE with EPINEPHRINE was injected in the superficial soft tissues. Small stab incision was made. A tunneler device was utilized and the catheter was pulled through to the access site. Serial dilatation of the access site was then performed and a peel-away sheath was positioned. Subsequently, the catheter was advanced through the peel-away sheath which was removed. Imaging demonstrates appropriate positioning of the catheter. Both lumens were assessed demonstrating excellent pull of blood and flush well. Both lumens were then flushed with the appropriate volume of heparin. The puncture site was closed with Dermabond. The catheter was then secured to the skin with 2-0 nylon suture and a sterile bandage was applied The patient tolerated well with no immediate complications. There was less than 5ml blood loss. Air Kerma: 2mGy Impression: Right internal jugular vein HD catheter placement. 23 cm tip to cuff catheter utilized.Catheter is available for immediate use. -------- FINAL REPORT -------- Dictated By: Shaorn Hassan Dictated Date: 05/28/2025 08:29 ET Assigned Physician: Gladis Mcgovern Reviewed and Electronically Signed By: Gladis Mcgovern Signed Date: 05/28/2025 15:05 ET Workstation ID: [id number] Transcribed By: Self Edit Transcribed Date: 05/28/2025 08:30 ET Resident/PA/DEPARTMENT TRAFFIC FREIGHT ROUTER: Sharon Hassan ASSESSMENT & PLAN 79-year-old Ecuadorean-speaking female with PMH breast cancer follows with Dr. Joseph, hypertension, leukemia, HFrEF, COPD, paroxysmal atrial fibrillation Eliquis downgraded from the ICU on 05/29/2025. Patient admitted on 05/15/2025. Patient with metastatic disease from her breast cancer. Acute metabolic encephalopathy on admission seems to have resolved at this time. Hypercalcemia ZEN/ATN leading to end-stage renal disease started on hemodialysis Status post tunneled catheter placement on 05/27/2025 first hemodialysis on 05/28/2025 No obstruction seen by CT scan. Hypercalcemia due to metastatic breast CA Patient to receive HD today. Continue to follow renal recommendations Hypercalcemia resolved A-fib with RVR with improved heart rates on metoprolol Patient also on amiodarone which has been discontinued by cardiology today. Increase metoprolol to 37.54 times daily. Average heart rates at rest should be less than 110 Continue with Eliquis Echo showed EF of 30 to 35% with mild to moderate MR and moderate TR Hypotension resolved discontinued Florinef will wean off midodrine HFrEF: Holding Lasix Entresto and spironolactone given low BP at this time. UTI completed treatment Metastatic breast cancer -diagnosed in 2020, s/p partial mastectomy right, declined adjuvant radiation. Had bone scan in outpatient which showed multiplie bone mets. Underwent bone biopsy on 05/20, path revealed breast canceras primary, MM workup was negative. -Dr. Joseph was consulted during admission, continues on tamoxifen (letrozole was discontinued). Right upper extremity hematoma noted. Ultrasound pending at this time. Hyperlipidemia on statin PT evaluation to be done Nutrition consult DVT Prophylaxis Eliquis Full Code - Confirmed Disposition patient continues to be chronically ill we will continue to monitor. * Edilma Reeves MD - 05/30/2025 1:22 PM EDT Images from the original note were not included. [facility]- Cardiology Follow-up Note PATIENT NAME: Chayito Klein ([id number]) DOS: 05/30/25 ASSESSMENT & PLAN 79 y.o. female who presented initially for altered mental status in the setting of electrolyte derangements and severe ZEN/ATN. She was initiated on dialysis this admission. She also has a coexistinghistory of widespread, metastatic breast cancer. I have been following her for A-fib with variable heart rates. She has chronic A-fib. Heart rate elevation this admission is likely being driven by other extraneous factors. We also had to hold her original high doses of metoprolol and discontinue previous digoxin in light of renal dysfunction and from prior hypotension on admission. We are slowly reinitiating metoprolol at least. There have been improvements in heart rates with this intervention. Heart rates are fairly well-controlled with averages in the 90s to low 100s. Intermittent spikes may be anxiety related or possibly just related to deconditioning. Blood pressures have greatly improved so my bias would be to discontinue Florinef. Would attempt to also wean midodrine. 1. A-fib with RVR-improved heart rates on metoprolol 25 p.o. every 6, however I would like to discontinue amiodarone-this was purely initiated in the ICU for rate control-the chances of her converting given that she had been in chronic persistent A-fib as an outpatient, are slim to none. Would discontinue amiodarone-increase metoprolol to 37.5 4 times daily to offset. Average heart rates at rest should be less than 110 bpm which they already are and I suspect will continue to be. Continue reduced dose Eliquis for CVA prophylaxis in light of age, reduced creatinine clearance, and low body weight. 2. Hypotension-resolved, discontinue Florinef, wean midodrine Discussed with Dr. Le. SUBJECTIVE Apparently, patient was was anxious overnight and had to be given as needed Zyprexa orders. This morning, she is slightly confused during dialysis but much more redirectable and calm. Blood pressureshave persistently been in the 140s over 100s for the most part. PAST MEDICAL HISTORY She has no past medical history on file. PAST SURGICAL HISTORY She has a past surgical history that includes us guided breast biopsy right (Right, 2020). SOCIAL HISTORY Tob: reports that she has never smoked. She has never used smokeless tobacco. ETOH: reports that she does not currently use alcohol. Drug: reports no history of drug use. FAMILY HISTORY She family history is not on file. MEDICATIONS: SCHEDULED MEDICATIONS: MEDSSCHEDULED[1] PRN MEDICATIONS: MEDSPRN[2] DRIPS: MEDSCONTINUOUS[3] ALLERGIES: She has no known allergies. OBJECTIVE Vitals: 05/30/25 1153 BP: 143/81 mmHg Pulse: 78 Resp: 16 Temp: 36.1 Celsius SpO2: 94% on room air Body mass index is 32.86 kg/m??. PHYSICAL EXAMINATION: APPEARANCE: Alert and in no acute distress, patient is confused to the in the middle of dialysis, she is calm and redirectable though EYES: PERRL, conjunctiva and sclera normal HENT: AT/NC, MMM NECK: JVP less then 8cm H2O, No bruits., Neck supple HEART: Irregularly irregular, no murmurs gallops LUNG: clear to auscultation ABDOMEN: Bowel sounds normoactive, no bruits, soft, non-tender, without organomegaly or palpable masses EXTREMITIES: Extremities warm and well perfused without edema SKIN: Skin color, texture, turgor normal. No rashes or lesions. LABS: Lab Results Component Value Date GLUCOSE 73 05/30/2025 CALCIUM 8.0 (L) 05/30/2025 NA 140 05/30/2025 K 3.1 (L) 05/30/2025 CO2 31 05/30/2025 CL 101 05/30/2025 BUN 28 (H) 05/30/2025 CREATININE 3.55 (H) 05/30/2025 Lab Results Component Value Date WBC 8.2 05/30/2025 HGB 7.9 (L) 05/30/2025 HCT 25.3 (L) 05/30/2025 MCV 84.6 05/30/2025 PLT 228 05/30/2025 Lab Results Component Value Date INR 1.2 05/28/2025 INR 1.2 05/25/2025 INR 1.4 05/23/2025 No results found for: CKTOTAL , CKMB , CKMBINDEX , TROPONINI , HSTROPI CARDIOVASCULAR TESTING 05/15/25 TRANSTHORACIC ECHOCARDIOGRAM (TTE) COMPLETE (CONTRAST/BUBBLE/3D PRN) 05/27/2025 05/26/2025 Interpretation Summary Left ventricle cavity size is normal. Left ventricular systolic function is moderately decreased with an ejection fraction of 30-35%. Moderate LV global hypokinesis is present. Left ventricle wall thickness is normal. Abnormal left ventricular septal motion. Right ventricle cavity is mildly enlarged. Right ventricular systolic function is mildly reduced. Pulmonary artery systolic pressure is ~49 mmHg. The atria are dilated. Right atrial pressure is ~3 mmHg. Mild to moderate mitral regurgitation. Tricuspid valve demonstrates moderate regurgitation. See remainder of the report for additional findings. Signed by: Jhoan Tirado MD on 05/27/2025 9:01 AM Telemetry-atrial fibrillation with heart rate average in the 90s to low 100s with occasional spikesto the 130s that are short in duration [facility] [address] [place] [address], [address] [place] [address] [1] acetaminophen, 1,000 mg, oral, q8h EMILY amiodarone, 400 mg, oral, BID Followed by [START ON 06/05/2025] amiodarone, 200 mg, oral, Daily apixaban, 2.5 mg, oral, BID fludrocortisone, 0.1 mg, oral, Daily fluticasone propionate, 2 spray, Each Nostril, Daily metoprolol tartrate, 25 mg, oral, q6h midodrine, 10 mg, oral, TID AC multivitamin, 1 each, oral, Daily perflutren lipid microsphere (DEFINITY) 1.3 mL in sodium chloride 0.9% 8.7 mL injection, 10 mL, intravenous, Once in imaging rosuvastatin, 10 mg, oral, Nightly sodium chloride, 10 mL, intravenous, BID tamoxifen, 20 mg, oral, Daily thiamine, 100 mg, oral, Daily [2] PRN medications: dextrose 50%, dextrose 50%, dextrose, dextrose, glucagon injection, LORazepam,metoprolol tartrate, naloxone, OLANZapine, oxyCODONE, polyetheylene glycol, sodium chloride, Insertperipheral IV AND Maintain IV access AND Saline lock IV AND sodium chloride AND sodium chloride [3] * Jose Meadows RN - 05/30/2025 11:20 AM EDT 05/30/25 1120 Vital Signs Patient Identification Yes Temp 36.1 ??C (97 ??F) Temp Source Temporal Heart Rate 82 Heart Rate Source Monitor Resp 16 BP (!) 143/81 MAP (Calculated) 102 mm Hg BP Method Automatic BP Location Right arm;Lower Patient Position Lying Post-Hemodialysis Assessment Rinseback Volume (mL) 150 mL Total Liters Processed (L/min) 63.5 L/min Dialyzer Clearance Moderately streaked Duration of Treatment (minutes) 180 minutes Hemodialysis Output (mL) 1000 mL Patient Response to Treatment/Comments Pt completed 3.0 hr Hemodialysis tx. 1.0 L net fluid removed. Dressing changed, no s/s of infection. Pt disoriented and anxious per current baseline. Minor improvement with medication and redirection. Asymptomatic HTN. Tachycardic during tx ranging 60-130's. Medical team aware, and medication provided with positive effects. Pt stable post-tx. Report given jose [facility] [place] Janes Calhoun RN * Carlos Alberto Islas MD - 05/30/2025 10:32 AM EDT Images from the original note were not included. Progress Note CHIEF COMPLAINT F/u ZEN SUBJECTIVE Seen and examined on HD Daughter at bedside updated Agitated this am MEDICAL HISTORY Medical History[1] MEDICATIONS MEDSSCHEDULED[2] MEDSPRN[3] MEDSCONTINUOUS[4] OBJECTIVE Vital signs in last 24 hours: Visit Vitals BP (!) 145/72 Pulse 73 Temp 36.3 ??C (97.3 ??F) (Temporal) Resp 18 Intake/Output last 24 hours: Intake/Output Summary (Last 24 hours) at 05/30/2025 1032 Last data filed at 05/30/2025 1015 Gross per 24 hour Intake 260 ml Output 1500 ml Net -1240 ml Weights: Admission Weight: Weight: 49.9 kg (110 lb) Wt Readings from Last 3 Encounters: 05/28/25 81.5 kg (179 lb 10.8 oz) 01/30/25 66.2 kg (146 lb) 07/24/24 68 kg (150 lb) Physical Exam: General: No acute distress HEENT: Normocephalic, atraumatic, anicteric Cardiovascular: S1 S2 normal Respiratory: unlabored Gl: soft non-distended Extremities: No cyanosis Neurological: Alert Integumentary: no rash Psych: Calm, cooperative LABS Results from last 7 days Lab Units 05/30/25 0612 05/29/25 0504 05/28/25 0357 WBC AUTO K/mcL 8.2 8.5 8.5 7.9 HEMOGLOBIN g/dL 7.9* 7.6* 7.6* 7.5* HEMATOCRIT % 25.3* 24.9* 24.9* 24.7* MCV FL 84.6 85.3 85.3 86.7 PLATELETS K/mcL 228 214 214 231 Results from last 7 days Lab Units 05/30/25 0612 05/29/25 0504 05/28/252050 CREATININE mg/dL 3.55* 2.98* 3.04* BUN mg/dL 28* 26* 25 SODIUM mmol/L 140 133 138 POTASSIUM mmol/L 3.1* 3.5 3.4* CHLORIDE mmol/L 101 95* 100 CO2 mmol/L 31 30 26 Phosphorus Date Value Ref Range Status 05/30/2025 3.2 2.5 - 4.5 mg/dL Final 05/29/2025 3.0 2.5 - 4.5 mg/dL Final 05/28/2025 2.0 (L) 2.5 - 4.5 mg/dL Final Vitamin D, 1, 25-Dihydroxy Date Value Ref Range Status 05/24/2025 19 (L) 20 - 79 pg/mL Final Comment: Vitamin D 1, 25 dihydroxy levels should be primarily used to assess Vitamin D status in patients with renal disease and hypercalcemia. Vitamin D 1,25-dihydroxy levels are generally less than 5 pg/mL in end stage renal disease patients. The preferred initial test for assessing Vitamin D status in the general population is Vitamin D 25-hydroxy (VITD). Test performed at [facility], [address], [place] [address] Rozina Peterson MD, PhD - Trailer Technician PTH Date Value Ref Range Status 05/16/2025 9.7 (L) 18.5 - 88.0 pcg/mL Final No results found for: IRON , TIBC , FERRITIN No results found for: COLORUA , CLARITYUA , SPECGRAVUA , PHUA , PROTUA , GLUCOSEUA , KETONESUA , BILIRUBINUA , BLOODUA , UROBILINOGUA , NITRITEUA IMPRESSION and PLAN ZEN Hypokalemia HFrEF Metastatic breast CA First HD on 05/28 S/p tunneled catheter placement on 05/27 ZEN due to acute tubular injury HD dependent Hypotensive earlier No obstruction by CT scan Not c/w contrast nephropathy Hypercalcemia due to metastatic breast CA Baseline creatinine is 0.7-0.8 mg/dl LVEF 30-35% REC HD today High K bath Goals of care discussion Follow kidney function and electrolytes Carlos Alberto Islas MD [1] History reviewed. No pertinent past medical history. [2] acetaminophen, 1,000 mg, oral, q8h EMILY amiodarone, 400 mg, oral, BID Followed by [START ON 06/05/2025] amiodarone, 200 mg, oral, Daily apixaban, 2.5 mg, oral, BID fludrocortisone, 0.1 mg, oral, Daily fluticasone propionate, 2 spray, Each Nostril, Daily LORazepam, , , metoprolol tartrate, 25 mg, oral, q6h midodrine, 10 mg, oral, TID AC multivitamin, 1 each, oral, Daily perflutren lipid microsphere (DEFINITY) 1.3 mL in sodium chloride 0.9% 8.7 mL injection, 10 mL, intravenous, Once in imaging rosuvastatin, 10 mg, oral, Nightly sodium chloride, 10 mL, intravenous, BID tamoxifen, 20 mg, oral, Daily thiamine, 100 mg, oral, Daily [3] PRN medications: dextrose 50%, dextrose 50%, dextrose, dextrose, glucagon injection, LORazepam,LORazepam, metoprolol tartrate, naloxone, OLANZapine, oxyCODONE, polyetheylene glycol, sodium chloride, Insert peripheral IV AND Maintain IV access AND Saline lock IV AND sodium chloride AND sodium chloride [4] * ANY French - 05/30/2025 12:45 AM EDT Rapid response called overhead for anxiety, tachycardia She has orders for Zyprxa 5 mg PO BID PRN and this was given earlier in the shift and patient fell asleep. When PCT attempted to get a blood sugar the patient became anxious Noted to be extremely anxious with court monitor reading a heart rate in the 200-220s, however appears to be motion artifact. Actual heart rate appears ~120-130s She cries out in Ecuadorean about her suffering and pain IV ativan 0.5 mg was administered and heart rate came down to 90-120s Blood pressure was a bit difficult to obtain but two readings with pressures in the 140/100s range;currently on midodrine and florinef Blood sugar was stable - 103 RUE concern for hematoma at the site of prior line, US of RUE ordered After about 5-10 minutes patient became more relaxed and somnolent Dr. Sanz overnight supervising physician was at bedside and provided care * ANY Cervantes - 05/29/2025 4:12 PM EDT Subjective Mrs. Rafael Klein is a 79-year-old Ecuadorean-speaking female with PMH breast cancer follows with Dr. Joseph, hypertension, leukemia, HFrEF, COPD, paroxysmal atrial fibrillation Eliquis close they are seen today for ICU downgrade. Patient notes initial admitted on 05/15 for altered mental status and was found to have hypercalcemia which was suspected secondary to malignancy with concerns for multiple myeloma or metastatic disease of her breast cancer. Please see notes and ICU notes for further information. In summary she underwent further testing and was deemed that she had metastatic disease and was started on tamoxifen by Dr. Joseph. She underwent treatment of hypercalcemia with IV fluid and Zometa and was found to be hypocalcemic with worsening renal function. She also subsequently became hypoglycemic and hypotensive and was transferred to the ICU for blood pressure management as well as dialysis in the morning. This was further complicated by episodes of atrial fibrillation with RVR. She was seen by cardiology and recommended resuming metoprolol and amiodarone for rate control andcontinue with Eliquis. Today she was seen stable for floor and downgraded. Currently she is alert and oriented to person. She states she is nervous for dialysis tomorrow. She has no other complaints,chest pain, shortness of breath, nausea, vomiting, abdominal pain, diarrhea. She has had good output from her Monroe and appears that she has 1200 mL of output during current interview. Objective Labs are notable for BUN 20, creatinine of 2.98, calcium 4.32, magnesium of 2.1, blood sugar of 94 and repeat 79, hemoglobin 7.6, hematocrit 24.9, digoxin level 0.6. Blood cultures have been negative. She is imaging including CT of the chest abdomen pelvis which showed numerous metastatic lesions with bones, nodular passages in the upper lobes consider follow-up CT in [address] head showed no acute findings. Abdominal x-ray showed no signs of bowel gas pattern, outside stool the right colon. Most recent chest x-ray showed cardiomegaly, moderate pulmonary vascular congestion with small bilateral pleural effusions as well as a prior study consistent with injury of the heart failure. Numerous x-ray showed interval postoperative to the acute bony abnormality. MRI of the brain showed no intracranial Malee, several small cardiometabolic lesions are suspected, chronic intracranial changes. Bone scan showed diffuse skeletal mets. Echo showed left ventricular Normal in size, ventricular stock function is moderately decreased with an EF of 30 to 35%, global hypokinesis is present, thickness normal, abnormal left intracortical motion, right ventricular cavity is mildly large, right ventricular systolic function is mildly reduced, pulmonary artery systolic pressures around 49 millim eters mercury, mild to moderate mitral regurgitation tricuspid demonstrates moderate regurgitation. Physical Exam General: Older female sitting upright in the stretcher in no acute distress, appears anxious Skin: Appropriate tone for ethnicity, warm, dry, no rashes or wounds HEENT: normocephalic, atraumatic, sclera nonicteric, could not follow commands or extraocular movements, PERRL, temperature is midline, uvula midline, Pulmonary: Lungs clear to oscillation mild bibasilar crackles . No wheezes or rhonchi appreciated, no respiratory distress, no accessory muscle use. Cardiac: S1 and S2 appreciated, no murmurs, rubs or gallops, no peripheral edema Abdomen: Soft, non-tender, nondistended, no guarding or rebound tenderness appreciated. Bowel sounds normoactive. 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 Cranial nerves 2-12 intact, other than extraocular movements noted above. No focal neurological deficits appreciated. No facial droop. Psych: Interest Last Recorded Vitals: Blood pressure 96/65, pulse 87, temperature 36.6 ??C (97.9 ??F), resp. rate 18, height 1.575 m (62 ), weight 81.5 kg (179 lb 10.8 oz), SpO2 100%. Assessment/Plan Principal Problem: Acute metabolic encephalopathy Active Problems: Hypercalcemia Malignancy (CMS/HCC V24, CMS/HCC V28) Severe protein-calorie malnutrition (CMS/HCC V24) Hypotension ZEN/ATN -likely multifactorial, on admission cr was normal but a day later jumped to 2.2, hypotension contributing, seen by nephrology and permacath was placed. There is no obstruction, not consistent with contrast nephropathy -underwent hemodialysis yesterday, per nephrology note hemodialysis again tomorrow -continue to hold nephrotoxic agents/renally dose medication -has had good urine output, monroe currently in has 1,200ml of output -am labs Hyperkalemia -secondary to worsening renal function, improved after Lokelma and dialysis -continue with telemetry monitoring Hypoglycemia -was found to be hypoglycemic on 05/24 and was rapid response for glucose 10 -likely from poor oral intake and poor live glycogen stores -monitor poc q4h, last 94 this morning 05/29 Atrial fibrillation with RVR Secondary hypercoagulable state -digoxin on hold for zen, continues on eliquis renally and age adjusted 2.5mg bid -seen by cardiology, restarted metoprolol and started amiodarone drip which has now been adjusted to po, has had rates ranging from 75 to 160 -echo showed ef 30-35% with mild to moderate MR and moderate TR Acute metabolic encephalopathy Hypercalcemia -admitted with hypercalcemia with correct ca of 13.6, was given ivf and zometa and ultimatly decreased but became hypocalcemic and was given calcium gluconate, almost back to normal with ionized calcium 4.32 -still has some confusion but is able to give more history than admission, brain ct was negative, mri negative for acute intracranial abnormality but showed several small calvarial metastatic lesionssupsected. Was on precedex yesterday for delirium which was discontinued. Will use zyprexa as needed while on imc. HFrEF (echo 30-35% 05/26) -appears euvolemic today, has been off GDMT treatment as her blood pressure cannot tolerate this and renal failure -continue to monitor I&os, she is typically on lasix 20mg at home, entresto and spironolactone UTI -completed treatment Hypotension -improving, continue on midodrine and florinef Breast cancer -diagnosed in 2020, s/p partial mastectomy right, declined adjuvant radiation. Had bone scan in outpatient which showed multiplie bone mets. Underwent bone biopsy on 05/20, path revealed breast canceras primary, MM workup was negative. -Dr. Joseph was consulted during admission, continues on tamoxifen (letrozole was discontinued). Hyperlipidemia -continue statin DVT prophlaxis -Eliquis -SCD CODE STATUS -Full code -HCP: daughter Odilon Serrano, Case discussed with Dr. Aviles Cosigned by Aleshia Aviles MD at 05/29/2025 5:53 PM EDT * Edilma Reeves MD - 05/29/2025 12:01 PM EDT Images from the original note were not included. [facility] Cardiology- Cardiology Follow-up Note PATIENT NAME: Chayito Klein ([id number]) DOS: 05/29/25 ASSESSMENT & PLAN 79 y.o. female with an unfortunate history of widely metastatic breast cancer. She presented initially with altered mental status. She developed ATN with associated renal failure having just initiated dialysis yesterday. She has struggled with rapid ventricular rates in A-fib. The patient is chronically in A-fib so rate spikes are likely triggered by some other issue-in this case related to her overall sick state and likely withdrawal of previous AV joaquin blocking agents. She was previously on a dose of metoprolol 100 mg daily along with digoxin. Digoxin cannot be used due to advanced renal disease and risk of toxicity. Metoprolol was initially held as the patient was not taking p.o. and more recently initiated back at a very low doses given hypotension as well (hypotension thought to be secondary to severe electrolyte disturbances). Amiodarone has been used in place of previous AV joaquin blocking agents. 1. Atrial fibrillation with labile heart rates-would be gentle and just start to resume oral AV joaquin blocking agents at this point-resume metoprolol 25 p.o. every 6 holding for systolic blood pressure less than 90, for now continue amiodarone for rate control only-the likelihood that we will achieve rhythm control given that the patient has had a chronic history of A-fib is exceedingly low; continue reduced dose Eliquis for CVA prophylaxis in light of low body weight and reduced creatinine clearance as well as age 79 or above; 2. Hypotension-improving, continue current midodrine, Florinef 3. Hyperlipidemia-continue low-dose rosuvastatin D/w Dr Mays. SUBJECTIVE Called to reevaluate the patient for labile heart rates. While the patient was on Precedex over thepast several days, her heart rates had actually been well- controlled in the 70s to 80s mostly in atrial fibrillation. However, over the past day, she has had random spikes in heart rate up to the 140s. She is asymptomatic from these. She denies any chest pain or palpitations or lightheadedness. Of note, she tolerated dialysis well yesterday. Her daughter is at the bedside who assists in Ecuadorean translation as the patient is predominantly Ecuadorean-speaking. PAST MEDICAL HISTORY She has no past medical history on file. PAST SURGICAL HISTORY She has a past surgical history that includes us guided breast biopsy right (Right, 2020). SOCIAL HISTORY Tob: reports that she has never smoked. She has never used smokeless tobacco. ETOH: reports that she does not currently use alcohol. Drug: reports no history of drug use. FAMILY HISTORY She family history is not on file. MEDICATIONS: SCHEDULED MEDICATIONS: MEDSSCHEDULED[1] PRN MEDICATIONS: MEDSPRN[2] DRIPS: MEDSCONTINUOUS[3] ALLERGIES: She has no known allergies. OBJECTIVE Vitals: 05/29/25 0800 BP: (!) 70/53 Pulse: 108 Resp: 13 Temp: 36.6 ??C (97.9 ??F) SpO2: 98% Body mass index is 32.86 kg/m??. PHYSICAL EXAMINATION: APPEARANCE: Alert and in no acute distress, frail EYES: PERRL, conjunctiva and sclera normal HENT: AT/NC, MMM NECK: JVP less then 8cm H2O, No bruits., Neck supple HEART: Irregularly irregular, no murmurs gallops LUNG: Bibasilar crackles ABDOMEN: Bowel sounds normoactive, no bruits, soft, non-tender, without organomegaly or palpable masses EXTREMITIES: Extremities warm and well perfused without edema NEURO: Awake, alert and oriented x 3, no gross focal abnormalities PSYCH: Appropriate, calm SKIN: Skin color, texture, turgor normal. No rashes or lesions. LABS: Lab Results Component Value Date GLUCOSE 94 05/29/2025 CALCIUM 8.0 (L) 05/29/2025 NA 133 05/29/2025 K 3.5 05/29/2025 CO2 30 05/29/2025 CL 95 (L) 05/29/2025 BUN 26 (H) 05/29/2025 CREATININE 2.98 (H) 05/29/2025 Lab Results Component Value Date WBC 8.5 05/29/2025 WBC 8.5 05/29/2025 HGB 7.6 (L) 05/29/2025 HGB 7.6 (L) 05/29/2025 HCT 24.9 (L) 05/29/2025 HCT 24.9 (L) 05/29/2025 MCV 85.3 05/29/2025 MCV 85.3 05/29/2025 PLT 214 05/29/2025 PLT 214 05/29/2025 Lab Results Component Value Date INR 1.2 05/28/2025 INR 1.2 05/25/2025 INR 1.4 05/23/2025 No results found for: CKTOTAL , CKMB , CKMBINDEX , TROPONINI , HSTROPI CARDIOVASCULAR TESTING 05/15/25 TRANSTHORACIC ECHOCARDIOGRAM (TTE) COMPLETE (CONTRAST/BUBBLE/3D PRN) 05/27/2025 05/26/2025 Interpretation Summary Left ventricle cavity size is normal. Left ventricular systolic function is moderately decreased with an ejection fraction of 30-35%. Moderate LV global hypokinesis is present. Left ventricle wall thickness is normal. Abnormal left ventricular septal motion. Right ventricle cavity is mildly enlarged. Right ventricular systolic function is mildly reduced. Pulmonary artery systolic pressure is ~49 mmHg. The atria are dilated. Right atrial pressure is ~3 mmHg. Mild to moderate mitral regurgitation. Tricuspid valve demonstrates moderate regurgitation. See remainder of the report for additional findings. Signed by: Jhoan Tirado MD on 05/27/2025 9:01 AM No results found for this or any previous visit. No results found for this or any previous visit. Thank you for allowing us to participate in this consultation. Please feel free to contact us with questions or concerns. We will continue to follow while inpatient.. [facility] [address] [place] [address], [address] [place] [id number] [1] acetaminophen, 1,000 mg, oral, q8h EMILY amiodarone, 400 mg, oral, BID Followed by [START ON 06/05/2025] amiodarone, 200 mg, oral, Daily apixaban, 2.5 mg, oral, BID fludrocortisone, 0.1 mg, oral, Daily fluticasone propionate, 2 spray, Each Nostril, Daily metoprolol tartrate, 25 mg, oral, q6h midodrine, 10 mg, oral, TID AC multivitamin, 1 each, oral, Daily perflutren lipid microsphere (DEFINITY) 1.3 mL in sodium chloride 0.9% 8.7 mL injection, 10 mL, intravenous, Once in imaging rosuvastatin, 10 mg, oral, Nightly sodium chloride, 10 mL, intravenous, BID tamoxifen, 20 mg, oral, Daily thiamine, 100 mg, oral, Daily [2] PRN medications: dextrose 50%, dextrose 50%, dextrose, dextrose, metoprolol tartrate, naloxone,OLANZapine, oxyCODONE, polyetheylene glycol, sodium chloride, Insert peripheral IV AND MaintainIV access AND Saline lock IV AND sodium chloride AND sodium chloride [3] * Carlos Alberto Islas MD - 05/29/2025 10:40 AM EDT Images from the original note were not included. Progress Note CHIEF COMPLAINT F/u ZEN SUBJECTIVE Seen and examined Daughter at bedside updated D/w ICU MEDICAL HISTORY Medical History[1] MEDICATIONS MEDSSCHEDULED[2] MEDSPRN[3] MEDSCONTINUOUS[4] OBJECTIVE Vital signs in last 24 hours: Visit Vitals BP (!) 70/53 Pulse 108 Temp 36.6 ??C (97.9 ??F) Resp 13 Intake/Output last 24 hours: Intake/Output Summary (Last 24 hours) at 05/29/2025 1040 Last data filed at 05/29/2025 0858 Gross per 24 hour Intake 1608.94 ml Output 2480 ml Net -871.06 ml Weights: Admission Weight: Weight: 49.9 kg (110 lb) Wt Readings from Last 3 Encounters: 05/28/25 81.5 kg (179 lb 10.8 oz) 01/30/25 66.2 kg (146 lb) 07/24/24 68 kg (150 lb) Physical Exam: General: No acute distress HEENT: Normocephalic, atraumatic, anicteric Cardiovascular: S1 S2 normal Respiratory: unlabored Gl: soft non-distended Extremities: No cyanosis Neurological: Alert Integumentary: no rash Psych: Calm, cooperative LABS Results from last 7 days Lab Units 05/29/25 0504 05/28/25 0357 05/27/25 0417 WBC AUTO K/mcL 8.5 8.5 7.9 10.2 HEMOGLOBIN g/dL 7.6* 7.6* 7.5* 8.4* HEMATOCRIT % 24.9* 24.9* 24.7* 27.8* MCV FL 85.3 85.3 86.7 86.9 PLATELETS K/mcL 214 214 231 252 Results from last 7 days Lab Units 05/29/25 0504 05/28/25205005/28/25 1427 CREATININE mg/dL 2.98* 3.04* 2.29* BUN mg/dL 26* 25 21 SODIUM mmol/L 133 138 140 POTASSIUM mmol/L 3.5 3.4* 4.3 CHLORIDE mmol/L 95* 100 107 CO2 mmol/L 30 26 26 Phosphorus Date Value Ref Range Status 05/29/2025 3.0 2.5 - 4.5 mg/dL Final 05/28/2025 2.0 (L) 2.5 - 4.5 mg/dL Final 05/28/2025 3.3 2.5 - 4.5 mg/dL Final Vitamin D, 1, 25-Dihydroxy Date Value Ref Range Status 05/24/2025 19 (L) 20 - 79 pg/mL Final Comment: Vitamin D 1, 25 dihydroxy levels should be primarily used to assess Vitamin D status in patients with renal disease and hypercalcemia. Vitamin D 1,25-dihydroxy levels are generally less than 5 pg/mL in end stage renal disease patients. The preferred initial test for assessing Vitamin D status in the general population is Vitamin D 25-hydroxy (VITD). Test performed at [facility], [address], [place] [address] Rozina Peterson MD, PhD - Trailer Technician PTH Date Value Ref Range Status 05/16/2025 9.7 (L) 18.5 - 88.0 pcg/mL Final No results found for: IRON , TIBC , FERRITIN No results found for: COLORUA , CLARITYUA , SPECGRAVUA , PHUA , PROTUA , GLUCOSEUA , KETONESUA , BILIRUBINUA , BLOODUA , UROBILINOGUA , NITRITEUA IMPRESSION and PLAN ZEN HFrEF Metastatic breast CA S/p HD on 05/28 (first treatment) S/p tunneled catheter placement on 05/27 Poor kidney clearance ZEN due to acute tubular injury Hypotensive SBP down to the 70s this am No obstruction by CT scan Not c/w contrast nephropathy Hypercalcemia due to metastatic breast CA Baseline creatinine is 0.7-0.8 mg/dl Per Dr Zamarripa: discussion with patient's daughter and she is agreeable with trial of dialysis LVEF 30-35% REC HD in am Goals of care discussion Follow kidney function and electrolytes Carlos Alberto Islas MD [1] History reviewed. No pertinent past medical history. [2] acetaminophen, 1,000 mg, oral, q8h EMILY amiodarone, 400 mg, oral, BID Followed by [START ON 06/05/2025] amiodarone, 200 mg, oral, Daily apixaban, 2.5 mg, oral, BID fludrocortisone, 0.1 mg, oral, Daily fluticasone propionate, 2 spray, Each Nostril, Daily metoprolol tartrate, 25 mg, oral, q6h midodrine, 10 mg, oral, TID AC multivitamin, 1 each, oral, Daily perflutren lipid microsphere (DEFINITY) 1.3 mL in sodium chloride 0.9% 8.7 mL injection, 10 mL, intravenous, Once in imaging rosuvastatin, 10 mg, oral, Nightly sodium chloride, 10 mL, intravenous, BID tamoxifen, 20 mg, oral, Daily thiamine, 100 mg, oral, Daily [3] PRN medications: dextrose 50%, dextrose 50%, dextrose, dextrose, metoprolol tartrate, naloxone,OLANZapine, oxyCODONE, polyetheylene glycol, sodium chloride, Insert peripheral IV AND MaintainIV access AND Saline lock IV AND sodium chloride AND sodium chloride [4] * Amarjit Ayala DO - 05/29/2025 6:36 AM EDT [facility] PROGRESS NOTE Code Status: Full Code - Confirmed SUBJECTIVE LEVRAULT Chayito Klein is a 79 y.o.,female presenting with weakness and altered mental status. 05/15 hospitalist admit note: Mrs. Rafael Klein is a 79-year-old Ecuadorean speaking female with PMH breast cancer follows with Dr. Joseph, Hypertension, Hyperlipidemia, HFrEF, COPD, paroxysmal atrial fibrillation on eliquis, amongst others seen today with educational interpreter and family for complaint of altered mental status. Patient was only oriented to person. Patient send reports that started a few days ago and she started tramadol for pain. She states she has not been eating or drinking as much she has had no appetite. She also denies any chest pain, shortness of breath, nausea or vomiting, abdominal pain, dysuria. She has not been febrile at home. She did have a bowel movement yesterday but her da ughter reports she has been constipated prior to this. She endorses that she has pain all over but is probably located in the lower back extending into her hips. She does endorse weakness and fatigueinto the ambulates with use of a cane but has been using a walker and is now not ambulating secondary to her ongoing generalized weakness. She had an outpatient CT scan on 04/26 with findings concerning for multiple myeloma versus metastatic disease. Given these findings and her confusion her primarycare decided to send her in for further evaluation. Of note her daughter reports that she has been taking Entresto for over 1 year now and she has been in contact with her primary care as well as line out man to determine if she should restart his medication or not. She still takes furosemide and spironolactone. Vitals are as follows: 36.4, pulse of 110, respiratory rate 22, bp of 133/83, pulse ox 95% on room air. Labs are notable for calcium of 12.1, albumin of 2.1, AST of 123, alk phos of 359, BNP of 199, CRP of greater than 190, oxycodone 13.8, INR 1.7. EKG 107 bpm atrial fibrillation. Chest x-ray pending formal read appears to show no pulmonary edema or pneumonia. Brain Ct showed no acute intracranial findings. Patient was given 1 L normal saline in the ED. Patient be transferred to the care of staff further management of their acute metabolic encephalopathy, hypercalcemia, multiple myeloma versus metastatic disease. 05/24 ICU admit note: Ms. Baig was admitted by the hospitalist service on 05/15, found to be hypercalcemic. She was diagnosed with metastatic breast cancer as the cause of her hypercalcemia. Hypercalcemia was treated and mental status improved. Please see the hospitalist dictated history and physical for the full details regarding her past medical, surgical, social histories. Please see hospitalist notes and linux consultant notes for details regarding hospital course. Chart, labs, studies reviewed in detail. I was asked by Dr Molina to evaluate Ms. Rafael Klein for ICU transfer in the setting of hypotension and worsening renal function, dialysis planned for tomorrow. The patient has had variable blood pressures dropping into the 80s over the course of the day today. No fevers or chills. Reports chest pain and back pain as well as abdominal pain. No dizziness or lightheadedness. Daughter is healthcare proxy. Patient full code. Patient transferred to the ICU for hemodynamic monitoring during initiation of dialysis, planned for tomorrow. [place] 05/25: Transfer of care received from [facility] NIGEL Conde. Overnight events and EMR reviewed. Patient examined and discussed with ICU bedside nurse and ICU multidisciplinary team on AM rounds. Overnight and AM noteable events include: Afeb VS acceptable without vasopressor support Hypotension significantly improved following IV calcium replacement for moderate hypocalcemia following necsssary treatment o HyperCalcemia with tratzoledronic acid on 05/16 . Cum I/O 1497 ml with UO 20-35 cc/h Serum Calcium has decreased from 12.1(05/15) to 6.9 ( today-05/25) Hyperkalemia has resolved from 6.0 (05/24) to 4.3 today on lokelma No new clinical events overnight B12, folate, RPR, TSH. Patient Discussed with Dr Zamarripa(Nephrology) - no acute indication for HD today: will replace low Calcium, trial IV Bumex, continue lokelma and IV bicarb [place] 05/26: Transfer of care received from [facility] yassine Crenshaw APRN. Overnight events and EMR reviewed. Patient examined and discussed with ICU bedside nurse and ICU Multidisciplinary team on AMrounds. Overnight and AM noteable events include: No new clinical events overnight Patient did not sleep well last night and is confused to place and partially to circumstance this AM Afebrile. Continued PAF with RVR but not sustained Blood cultures remain NGTD UO 35-60 cc/h (at target volume) on butmetanide with stable Cr while awaiting permacath tomorrow Serum Ca WNL K WNL Dig level 0.6 (WNL) No remarkable evidence of hydrostatic pulmonary edema RTA compensated on Bicarb IVFs No acute indications for HEAD SCORER/HD today [facility] 05/27: Transfer of care received from [facility] kerrie Brand, PAC. Overnight events and EMR reviewed. Patient examined and discussed with ICU bedside nurse and ICU Multidisciplinary team onAM rounds. Overnight and AM noteable events include: No new clinical events overnight Recurrent agitated delirium again this AM< with pt pulling at tubes and lines- she pulled out 1 of 2 PIVs Soft restraints(hand Mitts) were required Agitation clearing throughout the day patient is more cooperative and mid afternoon. A-fib/RVR heart rate with improved control on amiodarone infusion. Cardiology input (Dr. Reeves) reviewed and appreciated Hypocalcemia (ionized calcium 4.19) without ectopy has been replaced Patient taken to IR without ectopy R for permacath placement with plans for initiation of HD tomorrow. Plan to resume IV heparin without bolus 6 hours following permacath insertion. [facility] 05/28: Transfer of care received from [facility] information systems security analystdanilo Barber, PAC. Overnight events and EMR reviewed. Patient examined and discussed with ICU bedside nurse and ICU Multidisciplinary team on AM rounds. Overnight and AM noteable events include: No new clinical events overnight Afebrile. PAF controlled on amiodarone infusion IV heparin resumed at 11 PM last evening. Patient required dexmedetomidine infusion overnight for behavior management Calcium and potassium electrolytes replaced this a.m. Transition IV heparin to home dose of apixaban tomorrow AM is in process complete amiodarone infusion and transition to PO amiodarone Cardiology consult(Dr. Reeves) for chronic CHF management reviewed and appreciated SHEN 05/29: Patient seen and examined this morning. Chart, labs, studies reviewed. Case discussed in detail with ICU providers. Blood pressures remain marginal. Hypotensive and hypothermic overnight. Intermittently tachycardic in A-fib. Transitioning to p.o. Amio today and starting on Eliquis. Was on Precedex overnight for agitated delirium. This was complicated by bradycardia and excessive somnolence.Dex was discontinued. Awake and alert and confused this morning. Denies pain. No nausea or vomiting. No fevers reported. No shortness of breath or chest pain. OBJECTIVE FLUID BALANCE VITAL SIGNS Intake/Output Summary (Last 24 hours) at 05/29/2025 0636 Last data filed at 05/29/2025 0600 Gross per 24 hour Intake 1335.07 ml Output 2480 ml Net -1144.93 ml Weight change: Visit Vitals BP 85/53 Pulse 75 Temp 36.2 ??C (97.2 ??F) Resp 15 OXYGENATION AND VENTILATION ABG No results found for: PHART , XQR5RDC , PO2ART , CSL9AJE , M3MEJVGE , BEART , ALLENS , FIO2 PHYSICAL EXAMINATION In general the patient is awake, alert, confused but in no distress. HEENT is unremarkable. Extraocular muscles are intact. Neck is supple, no JVD. PermCath in place right jugular position. Heart is irregular and tachycardic. Chest is clear and diminished bilaterally. Abdomen is soft, nondistended. Bowel sounds quiet. Extremities notable for dependent edema. Warm and well-perfused. Distal pulses palpable in the radial. Neuro exam is grossly nonfocal/remarkable for effusion. Rectal is deferred. is deferred. Monroe in place. Skin is warm and dry. CURRENT MEDICATIONS Scheduled Meds: MEDSSCHEDULED[1] MEDSCONTINUOUS[2] MEDSPRN[3] Continuous Infusions:MEDSCONTINUOUS[4] PRN Meds: MEDSPRN[5] Outpatient medications reviewed and reconciled with those appropriate to this admission. LINES & DRAINS Hemodialysis Cath 05/27/25 Double Lumen Right Subclavian (Active) Site Assessment Clean;Dry;Intact 05/29/25 0020 Arterial Lumen Status Flushed;Normal saline locked;Capped 05/28/25 1215 Venous Lumen Status Flushed;Normal saline locked;Capped 05/28/25 1215 Phlebitis Scale 0 05/29/25 0020 Line Care Connections checked and tightened;Cap changed 05/28/25 1215 Dressing Type Transparent with Chlorhexidine Gluconate gel 05/29/25 0020 Dressing Status Clean;Dry;Intact 05/29/25 0020 Dressing Intervention Other (Comment) 05/28/25 1521 Dressing Change Due 06/04/25 05/28/25 1215 Line Necessity Yes, meets criteria 05/28/25 1215 Line Necessity Reviewed With Nephrology 05/28/25 1215 Peripheral IV 05/27/25 Anterior;Right;Upper Arm (Active) Site Assessment Clean;Dry;Intact 05/29/25 0400 Dressing Type Transparent 05/29/25 0400 Line Status Capped;Cap Change;Flushed;Saline locked 05/29/25 0400 Phlebitis Scale 0 05/29/25 0400 Dressing Status Clean;Dry;Intact 05/29/25 0400 Dressing Intervention Other (Comment) 05/28/25 1458 Midline 05/24/25 Single Lumen Left Brachial (Active) Site Assessment Clean;Dry;Intact 05/29/25 0400 Distal Lumen Status Infusing 05/29/25 0400 Phlebitis Scale 0 05/29/25 0400 Length masha (cm) 0 cm 05/24/25 1802 Extremity Circumference (cm) 30 cm 05/24/25 1802 Dressing Type Transparent with Chlorhexidine Gluconate gel 05/29/25 0400 Dressing Status Clean;Dry;Intact 05/29/25 0400 Dressing Intervention Other (Comment) 05/28/25 1737 Dressing Change Due 05/31/25 05/24/25 2000 Line Necessity Yes, meets criteria 05/28/25 0921 Urethral Catheter Double-lumen 16 Fr. (Active) Site Assessment Clean;Skin intact 05/29/25 0315 Collection Container Standard drainage bag 05/29/25 0000 Securement Method Securing device (Describe) 05/28/25 0400 Reason for Continuing Urinary Catheterization Critically ill and need for accurate measurements of I&O (e.g., hourly monitoring) 05/29/25 0315 Urinary Catheter Output (mL) 150 mL 05/29/25 0600 Line necessity addressed daily. NUTRITION Diet Order: Dietary Orders (From admission, onward) Start Ordered 05/18/25 1235 Dietary nutrition supplements Two times daily (BID); [facility]; Standard Oral Supplement Continuous Comments: [place] or vanilla Question Answer Comment Frequency Two times daily (BID) Location [facility] Supplements Standard Oral Supplement 05/18/25 1234 LAB RESULTS Reviewed. RADIOLOGY I have reviewed the relevant diagnostic imaging. MICROBIOLOGY I have reviewed the relevant microbiology. Problem List[6] ASSESSMENT & PLAN This is an 79-year-old female with metastatic breast cancer admitted with confusion and weakness, found to be hypercalcemic. Hypercalcemia treated. Ruled out for myeloma. Hospital course complicated by worsening ZEN requiring hemodialysis along with hypotension and A-fib with RVR. Patient transferred to the ICU on 05/24 for anticipation of PermCath placement with initiation of dialysis. Neuro: Continue oxycodone as needed for pain. Discontinued Precedex. Use Zydis as needed for agitated delirium. CV: History of heart failure with reduced ejection fraction. Repeat echo confirms EF of 30 to 35%. Discontinue heparin in favor of Eliquis. Discontinue IV amiodarone in favor of p.o. amiodarone. Scheduled as well as as needed beta- blockers for persistent A-fib with RVR. Cardiology following. Remains on midodrine and fludrocortisone. Continue statin. Pulm: Stable on room air. GI: Continue diet as tolerated with supplements. Renal: ZEN. Urine output remains reasonable. Had first round of HD on 05/28. Continue per renal recommendations. ID: Completed antibiotics for UTI present on admission. Endocrine: No role for steroids. Thyroid studies normal. Calcium normalized. Hematology/oncology: Dr. Joseph following. Continue tamoxifen. Proph: Restarting Eliquis. Code: Full code. Daughter is listed next of kin. Disp: Downgrade to [facility]. Patient has been stable off Precedex for the course of the day today. Restraints: Reordered. DVT Prophylaxis: Ordered. Family Updated: Daily and as needed. 69 minutes of critical care time was spent in direct patient care at the bedside or in the immediate area with this patient. Patient is acutely ill with system failure. Patient is at high risk for decompensation. This time was spent assessing and managing the patient, interpreting labs and imaging,coordinating care with other medical providers, and gathering history and discussing management andprognosis with family. Amarjit Ayala, [1] acetaminophen, 1,000 mg, oral, q8h EMILY amiodarone, 400 mg, oral, BID Followed by [START ON 06/05/2025] amiodarone, 200 mg, oral, Daily apixaban, 2.5 mg, oral, BID calcium gluconate, 2 g, intravenous, Once fluticasone propionate, 2 spray, Each Nostril, Daily metoprolol tartrate, 2.5 mg, intravenous, q6h midodrine, 10 mg, oral, TID AC multivitamin, 1 each, oral, Daily perflutren lipid microsphere (DEFINITY) 1.3 mL in sodium chloride 0.9% 8.7 mL injection, 10 mL, intravenous, Once in imaging rosuvastatin, 10 mg, oral, Nightly sodium chloride, 10 mL, intravenous, BID tamoxifen, 20 mg, oral, Daily thiamine, 100 mg, oral, Daily [2] heparin, 13 Units/kg/hr, Last Rate: 13 Units/kg/hr (05/29/25333) [3] PRN medications: dextrose 50%, dextrose 50%, dextrose, dextrose, heparin OR heparin, metoprolol tartrate, naloxone, OLANZapine, oxyCODONE, polyetheylene glycol, sodium chloride, Insert peripheral IV AND Maintain IV access AND Saline lock IV AND sodium chloride AND sodium chloride [4] heparin, 13 Units/kg/hr, Last Rate: 13 Units/kg/hr (05/29/25333) [5] PRN medications: dextrose 50%, dextrose 50%, dextrose, dextrose, heparin OR heparin, metoprolol tartrate, naloxone, OLANZapine, oxyCODONE, polyetheylene glycol, sodium chloride, Insert peripheral IV AND Maintain IV access AND Saline lock IV AND sodium chloride AND sodium chloride [6] Patient Active Problem List Diagnosis Cardiomy[place] [place] [facility] [place] COPD (chronic obstructive pulmonary disease) [place] [place] [facility] [place] DM2 (diabetes mellitus, type 2) [place] [place] [facility] [place] HTN (hypertension) Hyperlipidemia with target LDL less than 70 Observed sleep apnea Paroxysmal A-fib [place] [place], [facility] [place]) Tracheal stenosis Malignant neoplasm of overlapping sites of right breast in female, estrogen receptor positive [place] [place] [facility] [place]28[place] Acute metabolic encephalopathy Hypercalcemia Malignancy [place] [place] [facility] [place]) Severe protein-calorie malnutrition [place] [place]) Hypotension * DIMAS Myers - 05/28/2025 2:55 PM EDT stage set up worker met with pt/daughter, Maggie Donald bedside. Daughter/proxy requesting referral to [facility] where pt rec rehab in the past. Referral established/ Epic. Suggested daughter provide additional choices in the event [facility] could not offer placement. Daughter voiced understanding and plans to further research listing of retirement facilities. Per renal, daughter in agreement with trial run of HD. To follow hospital stay and dc planning needs. * Jose Meadows RN - 05/28/2025 12:30 PM EDT 05/28/25 1219 Vital Signs Patient Identification Yes Temp 36.1 ??C (97 ??F) Temp Source Temporal Heart Rate (!) 135 Heart Rate Source Monitor Resp 19 BP (!) 124/98 MAP (Device/Manual Entry) 108 mmHg MAP (Calculated) 107 mm Hg BP Method Automatic BP Location Lower;Left arm Patient Position Lying SpO2 100 % (Room air) Post-Hemodialysis Assessment Rinseback Volume (mL) 150 mL Total Liters Processed (L/min) 65.9 L/min Dialyzer Clearance Lightly streaked Duration of Treatment (minutes) 180 minutes Hemodialysis Output (mL) 1000 mL Patient Response to Treatment/Comments Pt tolerated 3.0 hr Hemodialysis tx well. 1.0 L net fluid removed. Dressing changed, no s/s of infection. Pt disoriented per current baseline. Asymptomatic tachycardia at at the end of tx, ICU team aware and medication provided. Weight (n/a) * Edilma Reeves MD - 05/28/2025 11:26 AM EDT Did a brief telemetry check. Patient's A-fib is still appropriately heart rate controlled. Remains on IV Amio. Will transition to oral when patient is able to take p.o. at 400 twice daily with taper (twice daily for 5 days followed by 400 mg daily week followed by 200 mg daily indefinitely cardiology follow-up). Patient is also being given IV metoprolol 2.5 every 6 which is reasonable to continueas well. Will sign off. Feel free to reconsult with questions or issues. * Carlos Alberto Islas MD - 05/28/2025 10:28 AM EDT Images from the original note were not included. Progress Note CHIEF COMPLAINT F/u ZEN SUBJECTIVE Seen and examined on HD D/w ICU MEDICAL HISTORY Medical History[1] MEDICATIONS MEDSSCHEDULED[2] MEDSPRN[3] MEDSCONTINUOUS[4] OBJECTIVE Vital signs in last 24 hours: Visit Vitals BP 115/76 Pulse 89 Temp 36.1 ??C (97 ??F) (Temporal) Resp 15 Intake/Output last 24 hours: Intake/Output Summary (Last 24 hours) at 05/28/2025 1028 Last data filed at 05/28/2025 1015 Gross per 24 hour Intake 1729.18 ml Output 1755 ml Net -25.82 ml Weights: Admission Weight: Weight: 49.9 kg (110 lb) Wt Readings from Last 3 Encounters: 05/28/25 81.5 kg (179 lb 10.8 oz) 01/30/25 66.2 kg (146 lb) 07/24/24 68 kg (150 lb) Physical Exam: General: No acute distress HEENT: Normocephalic, atraumatic, anicteric Cardiovascular: S1 S2 normal Respiratory: unlabored Gl: soft non-distended Extremities: No cyanosis Neurological: Alert Integumentary: no rash Psych: Calm, cooperative LABS Results from last 7 days Lab Units 05/28/25 03505/27/2541605/26/25358 WBC AUTO K/mcL 7.9 10.2 10.3 HEMOGLOBIN g/dL 7.5* 8.4* 8.5* HEMATOCRIT % 24.7* 27.8* 28.9* MCV FL 86.7 86.9 88.7 PLATELETS K/mcL 231 252 261 Results from last 7 days Lab Units 05/28/2535605/27/2541605/26/25 1930 CREATININE mg/dL 5.33* 4.91* 4.86* BUN mg/dL 59* 57* 58* SODIUM mmol/L 139 137 138 POTASSIUM mmol/L 3.4* 3.6 3.7 CHLORIDE mmol/L 100 101 101 CO2 mmol/L 28 26 23 Phosphorus Date Value Ref Range Status 05/28/2025 3.3 2.5 - 4.5 mg/dL Final 05/27/2025 3.2 2.5 - 4.5 mg/dL Final 05/26/2025 3.3 2.5 - 4.5 mg/dL Final Vitamin D, 1, 25-Dihydroxy Date Value Ref Range Status 05/24/2025 19 (L) 20 - 79 pg/mL Final Comment: Vitamin D 1, 25 dihydroxy levels should be primarily used to assess Vitamin D status in patients with renal disease and hypercalcemia. Vitamin D 1,25-dihydroxy levels are generally less than 5 pg/mL in end stage renal disease patients. The preferred initial test for assessing Vitamin D status in the general population is Vitamin D 25-hydroxy (VITD). Test performed at [facility], [address] [place] [address] Rozina Peterson MD, PhD - Trailer Technician PTH Date Value Ref Range Status 05/16/2025 9.7 (L) 18.5 - 88.0 pcg/mL Final No results found for: IRON , TIBC , FERRITIN No results found for: COLORUA , CLARITYUA , SPECGRAVUA , PHUA , PROTUA , GLUCOSEUA , KETONESUA , BILIRUBINUA , BLOODUA , UROBILINOGUA , NITRITEUA IMPRESSION and PLAN ZEN HFrEF Metastatic breast CA S/p tunneled catheter placement yesterday Poor kidney clearance ZEN due to acute tubular injury hypotensive No obstruction Not c/w contrast nephropathy Hypercalcemia due to metastatic breast CA Baseline creatinine is 0.7-0.8 mg/dl Per Dr Zamarripa: discussion with patient's daughter and she is agreeable with trial of dialysis LVEF 30-35% REC HD today Optimize volume status Goals of care discussion Follow kidney function and electrolytes Carlos Alberto Islas MD [1] History reviewed. No pertinent past medical history. [2] acetaminophen, 1,000 mg, oral, q8h EMILY cefTRIAXone, 1 g, intravenous, q24h fluticasone propionate, 2 spray, Each Nostril, Daily metoprolol tartrate, 2.5 mg, intravenous, q6h midodrine, 10 mg, oral, TID AC multivitamin, 1 each, oral, Daily perflutren lipid microsphere (DEFINITY) 1.3 mL in sodium chloride 0.9% 8.7 mL injection, 10 mL, intravenous, Once in imaging rosuvastatin, 10 mg, oral, Nightly sodium chloride, 10 mL, intravenous, BID [Held by provider] sodium zirconium cyclosilicate, 10 g, oral, BID [Held by provider] tamoxifen, 20 mg, oral, Daily thiamine, 100 mg, oral, Daily [3] PRN medications: dextrose 50%, dextrose 50%, dextrose, dextrose, heparin OR heparin, metoprolol tartrate, naloxone, ondansetron (ZOFRAN-ODT) disintegrating tablet OR ondansetron, oxyCODONE, polyetheylene glycol, sodium chloride, Insert peripheral IV AND Maintain IV access AND Saline lock IV AND sodium chloride AND sodium chloride [4] amiodarone, 0.5 mg/min, Last Rate: 0.5 mg/min (05/28/25899) dexmedeTOMIDine (PRECEDEX) infusion, 0.2-1.5 mcg/kg/hr, Last Rate: Stopped (05/27/25 2300) heparin, 13 Units/kg/hr, Last Rate: 13 Units/kg/hr (05/28/25899) sodium bicarbonate, 150 mEq, Last Rate: 50 mL/hr at 05/28/25899 * Charlotte Camara MD - 05/28/2025 6:38 AM EDT CCM PROGRESS NOTE Code Status: Full Code - Confirmed Length of Stay: 14 ICU Day: 5 SUBJECTIVE ICU COURSE SHEN Klein is a 79 y.o.,female presenting with weakness and altered mental status. 05/15 hospitalist admit note: Mrs. Rafael Klein is a 79-year-old Ecuadorean speaking female with PMH breast cancer follows with Dr. Joseph, Hypertension, Hyperlipidemia, HFrEF, COPD, paroxysmal atrial fibrillation on eliquis, amongst others seen today with educational interpreter and family for complaint of altered mental status. Patient was only oriented to person. Patient send reports that started a few days ago and she started tramadol for pain. She states she has not been eating or drinking as much she has had no appetite. She also denies any chest pain, shortness of breath, nausea or vomiting, abdominal pain, dysuria. She has not been febrile at home. She did have a bowel movement yesterday but her da ughter reports she has been constipated prior to this. She endorses that she has pain all over but is probably located in the lower back extending into her hips. She does endorse weakness and fatigueinto the ambulates with use of a cane but has been using a walker and is now not ambulating secondary to her ongoing generalized weakness. She had an outpatient CT scan on 04/26 with findings concerning for multiple myeloma versus metastatic disease. Given these findings and her confusion her primarycare decided to send her in for further evaluation. Of note her daughter reports that she has been taking Entresto for over 1 year now and she has been in contact with her primary care as well as line out man to determine if she should restart his medication or not. She still takes furosemide and spironolactone. Vitals are as follows: 36.4, pulse of 110, respiratory rate 22, bp of 133/83, pulse ox 95% on room air. Labs are notable for calcium of 12.1, albumin of 2.1, AST of 123, alk phos of 359, BNP of 199, CRP of greater than 190, oxycodone 13.8, INR 1.7. EKG 107 bpm atrial fibrillation. Chest x-ray pending formal read appears to show no pulmonary edema or pneumonia. Brain Ct showed no acute intracranial findings. Patient was given 1 L normal saline in the ED. Patient be transferred to the care of staff further management of their acute metabolic encephalopathy, hypercalcemia, multiple myeloma versus metastatic disease. 05/24 ICU admit note: Ms. Baig was admitted by the hospitalist service on 05/15, found to be hypercalcemic. She was diagnosed with metastatic breast cancer as the cause of her hypercalcemia. Hypercalcemia was treated and mental status improved. Please see the hospitalist dictated history and physical for the full details regarding her past medical, surgical, social histories. Please see hospitalist notes and linux consultant notes for details regarding hospital course. Chart, labs, studies reviewed in detail. I was asked by Dr Molina to evaluate Ms. Rafael Klein for ICU transfer in the setting of hypotension and worsening renal function, dialysis planned for tomorrow. The patient has had variable blood pressures dropping into the 80s over the course of the day today. No fevers or chills. Reports chest pain and back pain as well as abdominal pain. No dizziness or lightheadedness. Daughter is healthcare proxy. Patient full code. Patient transferred to the ICU for hemodynamic monitoring during initiation of dialysis, planned for tomorrow. [place]O 05/25: Transfer of care received from [facility] NIG[facility] Conde. Overnight events and EMR reviewed. Patient examined and discussed with ICU bedside nurse and ICU multidisciplinary team on AM rounds. Overnight and AM noteable events include: Afeb VS acceptable without vasopressor support Hypotension significantly improved following IV calcium replacement for moderate hypocalcemia following necsssary treatment o HyperCalcemia with tratzoledronic acid on 05/16 . Cum I/O 1497 ml with UO 20-35 cc/h Serum Calcium has decreased from 12.1(05/15) to 6.9 ( today-05/25) Hyperkalemia has resolved from 6.0 (05/24) to 4.3 today on lokelma No new clinical events overnight B12, folate, RPR, TSH. Patient Discussed with Dr Zamarripa(Nephrology) - no acute indication for HD today: will replace low Calcium, trial IV Bumex, continue lokelma and IV bicarb [facility] 05/26: Transfer of care received from [facility] yassine Crenshaw APRN. Overnight events and EMR reviewed. Patient examined and discussed with ICU bedside nurse and ICU Multidisciplinary team on AMrounds. Overnight and AM noteable events include: No new clinical events overnight Patient did not sleep well last night and is confused to place and partially to circumstance this AM Afebrile. Continued PAF with RVR but not sustained Blood cultures remain NGTD UO 35-60 cc/h (at target volume) on butmetanide with stable Cr while awaiting permacath tomorrow Serum Ca WNL K WNL Dig level 0.6 (WNL) No remarkable evidence of hydrostatic pulmonary edema RTA compensated on Bicarb IVFs No acute indications for HEAD SCORER/HD today [facility] 05/27: Transfer of care received from [facility] kerrie Brand, PAC. Overnight events and EMR reviewed. Patient examined and discussed with ICU bedside nurse and ICU Multidisciplinary team onAM rounds. Overnight and AM noteable events include: No new clinical events overnight Recurrent agitated delirium again this AM< with pt pulling at tubes and lines- she pulled out 1 of 2 PIVs Soft restraints(hand Mitts) were required Agitation clearing throughout the day patient is more cooperative and mid afternoon. A-fib/RVR heart rate with improved control on amiodarone infusion. Cardiology input (Dr. Reeves) reviewed and appreciated Hypocalcemia (ionized calcium 4.19) without ectopy has been replaced Patient taken to IR without ectopy R for permacath placement with plans for initiation of HD tomorrow. Plan to resume IV heparin without bolus 6 hours following permacath insertion. [facility] 05/28: Transfer of care received from [facility] information systems security analystdanilo Barber, PAC. Overnight events and EMR reviewed. Patient examined and discussed with ICU bedside nurse and ICU Multidisciplinary team on AM rounds. Overnight and AM noteable events include: No new clinical events overnight Afebrile. PAF controlled on amiodarone infusion IV heparin resumed at 11 PM last evening. Patient required dexmedetomidine infusion overnight for behavior management Calcium and potassium electrolytes replaced this a.m. Transition IV heparin to home dose of apixaban tomorrow AM is in process complete amiodarone infusion and transition to PO amiodarone Cardiology consult(Dr. Reeves) for chronic CHF management reviewed and appreciated OBJECTIVE FLUID BALANCE VITAL SIGNS Intake/Output Summary (Last 24 hours) at 05/28/2025 0639 Last data filed at 05/28/2025 0600 Gross per 24 hour Intake 2468.54 ml Output 1905 ml Net 563.54 ml Weight change: 14.4 kg (31 lb 10.8 oz) Visit Vitals BP 90/56 Pulse 73 Temp 36.1 ??C (96.9 ??F) (Temporal) Resp 12 OXYGENATION AND VENTILATION ABG No results found for: PHART , [id number] , PO2ART , YQV3PKN , [id number] , BEART , ALLENS , FIO2 PHYSICAL EXAMINATION Appearance: Elderly female, sleepy and relaxed after lorazepam overnight, resting comfortably in bed. No Acute Distress Mental Status: relaxed, not resistive Head Exam: Normocephalic, Symmetric HEENT: Sclera Anicteric, PERRL, EOMI, Moist Mucous Membranes, Trachea Midline, No JVD. Chest: CTA bilaterally. No Accessory Muscle Use. Cardiac: IRR without audible M/R/G. Normal peripheral pulses all 4 extremities. Abdomen: Soft, Non-tender, NABS Rectal Exam: Deferred : IUBC in place draining clear sundeep urine Skin: Skin Color Normal, Skin Temperature Normal, Skin Turgor Normal. CRF < 3sec Wound Present: No Upper Extremity Appearance: Normal, Symmetric. Extremity muscle appearance and tone are unremarkable. Lower Extremity Appearance: Chronic venous stasis changes bilaterally with 2+ symmetric BLE edema w/o palpable cords, cellulitis or calf discomfort. Normal, Symmetric. Extremity muscle appearance andtone are unremarkable. Neuro: nonfocal motor exam and without sensory deficit Follows Commands: yes Motor Response: symmetric, non-focally localizes noxious stimuli all 4 extremities Sensory Response: nonfocally localizes noxious stimuli all 4 extremities CURRENT MEDICATIONS Scheduled Meds: MEDSSCHEDULED[1] MEDSCONTINUOUS[2] MEDSPRN[3] Continuous Infusions:MEDSCONTINUOUS[4] PRN Meds: MEDSPRN[5] LINES & DRAINS Hemodialysis Cath 05/27/25 Double Lumen Right Subclavian (Active) Site Assessment Not assessed 05/28/25 0400 Phlebitis Scale 0 05/28/25 0400 Dressing Type Transparent;Gauze 05/28/25 0400 Dressing Status Clean;Dry;Intact 05/28/25 0400 Peripheral IV 05/27/25 Anterior;Right;Upper Arm (Active) Site Assessment Clean;Dry;Intact 05/28/25 0400 Dressing Type Transparent 05/28/25 0400 Line Status Infusing 05/28/25 0400 Phlebitis Scale 0 05/28/25 0400 Dressing Status Dry;Clean;Intact 05/28/25 0400 Midline 05/24/25 Single Lumen Left Brachial (Active) Site Assessment Clean;Dry;Intact 05/28/25 0400 Distal Lumen Status Infusing 05/28/25 0400 Phlebitis Scale 0 05/28/25 0400 Length masha (cm) 0 cm 05/24/25 180 Extremity Circumference (cm) 30 cm 05/24/25 180 Dressing Type Transparent with Chlorhexidine Gluconate gel 05/28/25 040 Dressing Status Clean;Dry;Intact 05/28/25 040 Dressing Intervention New dressing 05/24/251801 Dressing Change Due 05/31/25 05/24/251999 Line Necessity Yes, meets criteria 05/27/25 0650 Urethral Catheter Double-lumen 16 Fr. (Active) Site Assessment Clean;Skin intact 05/28/25399 Collection Container Standard drainage bag 05/28/25399 Securement Method Securing device (Describe) 05/28/25 040 Reason for Continuing Urinary Catheterization Critically ill and need for accurate measurements of I&O (e.g., hourly monitoring) 05/28/25 040 Urinary Catheter Output (mL) 150 mL 05/28/25 0600 NUTRITION Diet Order: Dietary Orders (From admission, onward) Start Ordered 05/27/25 0710 Adult NPO diet Location: [facility]; Diet: NPO- Except for Medications Diet effective now Question Answer Comment Location [facility] Diet NPO- Except for Medications 05/27/25 0710 05/18/25 1235 Dietary nutrition supplements Two times daily (BID); [facility]; Standard Oral Supplement Continuous Comments: [place] or vanilla Question Answer Comment Frequency Two times daily (BID) Location [facility] Supplements Standard Oral Supplement 05/18/25 1234 LAB RESULTS Lab Results Component Value Date WBC 7.9 05/28/2025 RBC 2.90 (L) 05/28/2025 HGB 7.5 (L) 05/28/2025 HCT 24.7 (L) 05/28/2025 MCV 86.7 05/28/2025 MCHC 30.4 (L) 05/28/2025 RDW 20.1 (H) 05/28/2025 PLT 231 05/28/2025 MPV 11.1 (H) 05/28/2025 NRBC 0.3 05/28/2025 DIFF Lab Results Component Value Date LYMPHOPCT 14.9 05/28/2025 NEUTROABS 5.69 05/28/2025 LYMPHSABS 1.17 05/28/2025 MONOABS 0.72 05/28/2025 EOSABS 0.20 05/28/2025 BASOSABS 0.02 05/28/2025 IMMGRANABS 0.06 (H) 05/28/2025 RETIC No results found for: RETIC , RETICCTPCT Lab Results Component Value Date NA 139 05/28/2025 K 3.4 (L) 05/28/2025 CL 100 05/28/2025 CO2 28 05/28/2025 GLUCOSE 101 (H) 05/28/2025 BUN 59 (H) 05/28/2025 CREATININE 5.33 (H) 05/28/2025 CALCIUM 8.1 (L) 05/28/2025 PROT 5.3 (L) 05/28/2025 ALBUMIN 1.5 (L) 05/28/2025 BILITOT 0.3 05/28/2025 AST 47 (H) 05/28/2025 ALT 15 05/28/2025 URICACID 3.0 (L) 05/15/2025 PHOS 3.3 05/28/2025 MG 2.0 05/28/2025 ALKPHOS 189 (H) 05/28/2025 EGFR 8 (L) 05/28/2025 RADIOLOGY I have reviewed the relevant diagnostic imaging MICROBIOLOGY I have reviewed the relevant microbiology ASSESSMENT & PLAN Diagnosis (ACUTE/Chronic) Plan Neuro: Acute metabolic encephalopathy (improving) - due to Hypercalcemia Intermittent Agitated delirium -Pain control: Acetaminophen -Sedation/Anxiety management: dexmedetomidine prn agitated delirium Cardiovascular/Hematological: Arterial hypotension (multifactorial) - Marginal but compensated on midodrine pre-HD Afib with RVR (rate-controlled) Cardiomyopathy( EF 35%) HFrEF Chronic PAF (on Eliquis) Hyperlipidemia -Full Code - Confirmed -target MAP > 65 mmHg -F/U TTE -Continue metoprolol, midodrine, rosuvastatin - stop heparin transition to home dose of apixaban tomorrow AM -Cardiology consult(Dr. 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 -now mild asymptomatic Hypocalcemia Hyperkalemia (controlled) Acute metabolic acidosis(multifactorial) ZEN on CKD2 UTI -target UO > 0.5 cc/kg/h Adjusted IBW -replace electrolytes to WNL -IUBC for hourly UO while critically ill -Continue Lokelma -Continue Bumex until scheduled HD is initiated - Perma cath placement yesterday followed by initiation of scheduled elective HD today - Nephrology input (Dr Islas) reviewed and appreciated - Hypocalcemia replacement in collaboration with Nephrology Endocrine: DM2 -target BG 140-180 -SSI ICU protocol ID: -complete Ceftriaxone for UTI -f/u all cultures -assess antimicrobials, when present, daily for potential de-escalation. Social: Patient & family (Daughter-Maggie Donald [[phone]] - is listed as HCA1 with Abdulaziz Ngo [[phone]] HCA2) updated regarding patient status, response to therapy and plan of care. Skin/Wound: -Wound prevention positioning DISPOSITION: Continue ICU level of care 70 minutes of critical care time was spent in direct patient care at the bedside or in the immediate area with this patient. They are acutely ill with system failure. They are at high risk for decompensation. This time was spent assessing and managing the patient, interpreting labs and imaging, coordinating care with other medical providers, and gathering history and discussing management and prognosis with family. Charlotte Camara MD [1] acetaminophen, 1,000 mg, oral, q8h EMILY calcium gluconate, 2 g, intravenous, Once cefTRIAXone, 1 g, intravenous, q24h fluticasone propionate, 2 spray, Each Nostril, Daily metoprolol tartrate, 2.5 mg, intravenous, q6h midodrine, 10 mg, oral, TID AC multivitamin, 1 each, oral, Daily perflutren lipid microsphere (DEFINITY) 1.3 mL in sodium chloride 0.9% 8.7 mL injection, 10 mL, intravenous, Once in imaging rosuvastatin, 10 mg, oral, Nightly sodium chloride, 10 mL, intravenous, BID [Held by provider] sodium zirconium cyclosilicate, 10 g, oral, BID [Held by provider] tamoxifen, 20 mg, oral, Daily thiamine, 100 mg, oral, Daily [2] amiodarone, 0.5 mg/min, Last Rate: 0.5 mg/min (05/28/25599) dexmedeTOMIDine (PRECEDEX) infusion, 0.2-1.5 mcg/kg/hr, Last Rate: Stopped (05/27/252299) heparin, 13 Units/kg/hr, Last Rate: 13 Units/kg/hr (05/28/25599) sodium bicarbonate, 150 mEq, Last Rate: 50 mL/hr at 05/28/25599 [3] PRN medications: dextrose 50%, dextrose 50%, dextrose, dextrose, heparin OR heparin, metoprolol tartrate, naloxone, ondansetron (ZOFRAN-ODT) disintegrating tablet OR ondansetron, oxyCODONE, polyetheylene glycol, sodium chloride, Insert peripheral IV AND Maintain IV access AND Saline lock IV AND sodium chloride AND sodium chloride [4] amiodarone, 0.5 mg/min, Last Rate: 0.5 mg/min (05/28/25599) dexmedeTOMIDine (PRECEDEX) infusion, 0.2-1.5 mcg/kg/hr, Last Rate: Stopped (05/27/252299) heparin, 13 Units/kg/hr, Last Rate: 13 Units/kg/hr (05/28/25599) sodium bicarbonate, 150 mEq, Last Rate: 50 mL/hr at 05/28/25599 [5] PRN medications: dextrose 50%, dextrose 50%, dextrose, dextrose, heparin OR heparin, metoprolol tartrate, naloxone, ondansetron (ZOFRAN-ODT) disintegrating tablet OR ondansetron, oxyCODONE, polyetheylene glycol, sodium chloride, Insert peripheral IV AND Maintain IV access AND Saline lock IV AND sodium chloride AND sodium chloride * Leela Vicetne RN - 05/28/2025 3:09 AM EDT Goals: Problem: Cognitive: Knowledge Deficit of Disease Process Goal: Knowledge of disease or condition will improve Outcome: Progressing Goal: Identification of resources available to assist in meeting health care needs will improve Outcome: Progressing Problem: Patient Specific Problem: Knowledge Deficit of Disease Process Goal: Patient Specific Outcome Outcome: Not Progressing Problem: Sensory: Acute Pain Goal: Pain level will improve or be tolerable Outcome: Progressing Goal: Ability to develop a pain control plan will improve Outcome: Progressing Problem: Cognitive: Acute Pain Goal: Expressions of feelings of enhanced comfort will increase Outcome: Not Progressing Problem: Patient Specific Problem: Acute Pain Goal: Patient Specific Outcome Outcome: Progressing Problem: Cardiac:Cardiac Output Alteration Goal: Ability to maintain an adequate cardiac output will improve Outcome: Progressing Problem: Cognitive:Cardiac Output Alteration Goal: Ability to state signs and symptoms to report to health care provider will improve Outcome: Progressing Goal: Knowledge of the prescribed therapeutic regimen will improve Outcome: Progressing Problem: Fluid Volume: Cardiac Output Alteration Goal: Ability to achieve a balanced intake and output will improve Outcome: Not Progressing Problem: Physical Regulation:Cardiac Output Alteration Goal: Will achieve and/or maintain hemodynamic stability Outcome: Progressing Problem: Patient Specific Problem: Cardiac Output Alteration Goal: Patient Specific Outcome Outcome: Progressing Problem: Cognitive: Acute Anxiety Goal: Ability to identify strategies to decrease anxiety will improve Outcome: Progressing Problem: Self-Concept: Acute Anxiety Goal: Level of anxiety will decrease Outcome: Progressing Problem: Patient Specific Problem: Acute Anxiety Goal: Patient Specific Outcome Outcome: Progressing Problem: Cognitive: Elisabeth Kent Fall Risk Goal: Last Known Fall Outcome: Progressing Goal: Mobility requiring assistance of person or device Outcome: Not Progressing Goal: Dizziness Outcome: Progressing Goal: Medications Outcome: Progressing Goal: Mental Status/LOC/Awareness Outcome: Not Progressing Goal: Toileting Needs Outcome: Not Progressing Goal: Volume and Electrolyte Status Outcome: Progressing Goal: Communication/Sensory Outcome: Not Progressing Goal: Behavior Outcome: Not Progressing Problem: Risk for Impaired Skin Integrity R/T Friction and Shear Goal: Prevent/Maintain/Improve Skin Integrity No Apparent Problem Outcome: Progressing Goal: Prevent/Maintain/Improve Skin Integrity Potential Problem Outcome: Progressing Goal: Prevent/Maintain/Improve Skin Integrity Problem Outcome: Progressing Problem: Risk for Impaired Skin Integrity R/T Moisture Goal: Prevent/Maintain/Improve Skin Integrity Problem Rarely Moist Outcome: Progressing Goal: Prevent/Maintain/Improve Skin Integrity Occasionally Moist Outcome: Progressing Goal: Prevent/Maintain/Improve Skin Integrity Very Moist Outcome: Progressing Goal: Prevent/Maintain/Improve Skin Integrity Constantly Moist Outcome: Progressing Problem: Risk for Impaired Skin Integrity R/T Altered Activity Goal: Prevent/Maintain/Improve Skin Integrity Walks Frequently Outcome: Progressing Goal: Prevent/Maintain/Improve Skin Integrity Walks Occasionally Outcome: Progressing Goal: Prevent/Maintain/Improve Skin Integrity Chairfast Outcome: Progressing Goal: Prevent/Maintain/Improve Skin Integrity Bedfast Outcome: Progressing Problem: Risk for Impaired Skin Integrity R/T Sensory Perception Goal: Prevent/Maintain/Improve Skin Integrity No Impairment Outcome: Progressing Goal: Prevent/Maintain/Improve Skin Integrity Slightly Limited Outcome: Progressing Problem: Skin Integrity: Pressure Injury Actual or Risk of Goal: Will not develop new pressure injury Outcome: Progressing Goal: Skin integrity will improve Outcome: Progressing Goal: Risk for impaired skin integrity will decrease Outcome: Progressing Problem: Activity:Pressure Injury Actual or Risk of Goal: Mobility will improve Outcome: Not Progressing Problem: Nutritional:Pressure Injury Actual or Risk of Goal: Nutritional status will improve Outcome: Not Progressing Problem: Patient Specific Problem: Pressure Injury Actual or Risk of Goal: Patient Specific Outcome Outcome: Progressing Identify possible barriers to meeting goals/advancing plan of care: Confused, wounds, afib, amio, heparin and bicarb gtts Stability of the patient: Moderately Unstable - Medium risk of patient condition declining or worsening End of Shift Summary: Patient remains oriented to self and intermittently to place and time - disoriented to situation. Pt is lethargic but easily arousable. Patient understands some Belarusian and is able to make needs known. Patient is being turned Q2hr, with LEAF monitor and puff boots. Dressings to [place], hip and buttocks remain clean, dry and intact. Pt briefly started on precedex gtt (see MAR) for suppository insertion - too agitated, fighting this RN without gtt. Small, formed BM noted. BLE pulses are present with doppler. Heparin restarted at 0000 (see MAR) antiXa scheduled for 0600. Pt did take one medication orally, crushed with applesauce and a sip of tip salena at start of shift without coughing, choking, etc but has refused anything orally since. Pt continually reports being coldbut temp remains WNL, pt is warm and dry to touch. * Cris Burnett, RD - 05/27/2025 2:58 PM EDT 05/27/2025 @ 2:58 PM EDT Nutrition Follow Up Note Reason for RD Intervention: Assessment Type: Follow-up Reason for Assessment: High MST Score Anthropometrics: Height: 157.5 cm (62 ) Weight: 67.1 kg (148 lb) BMI (Calculated): 27.1 BMI Class: Normal IBW (lbs): 110 Recent Weight Change: Yes Other (Comment): If recorded weight history accurate 27% loss over 3 months Current Diet and Supplements: Dietary Orders (From admission, onward) Start Ordered 05/27/25 0710 Adult NPO diet Location: [facility]; Diet: NPO- Except for Medications Diet effective now Question Answer Comment Location [facility] Diet NPO- Except for Medications 05/27/25 0710 05/18/25 1235 Dietary nutrition supplements Two times daily (BID); [facility]; Standard Oral Supplement Continuous Comments: [place] or vanilla Question Answer Comment Frequency Two times daily (BID) Location [facility] Supplements Standard Oral Supplement 05/18/25 1234 History of presenting illness: Patient is a 79 y.o. female with a history of Medical History[1] Surgical History[2] admitted 05/15/2025 with Acute metabolic encephalopathy. Food/Nutrition History: Previously prescribed diets: (Per daughter: pt with weight loss and loss of appetite for past few months. Daughter encourages patient to eat, but pt consuming,75% of usual. Daughter started providingEnsure at home. Noted patient will not eat on her own needs assistance with meals.) Social Influencers of Health & Nutrition - Hunger Vital Signs: Within the past 12 months we worried whether our food would run out before we got money to buy more: Unable to respond Within the past 12 months the food we bought just didn't last and we didn't have money to get more: Unable to respond Who obtained answers? Unable to complete at this time. Assistance: Unable to determine at this time Weight History: Wt Readings from Last 10 Encounters: 05/26/25 67.1 kg (148 lb) 01/30/25 66.2 kg (146 lb) 07/24/24 68 kg (150 lb) 12/16/23 69.9 kg (154 lb 3.2 oz) 07/04/23 73 kg (161 lb) 06/15/23 72.1 kg (159 lb) 01/12/23 76.7 kg (169 lb 3.2 oz) 12/15/22 74.8 kg (165 lb) 06/21/22 71.2 kg (157 lb) 06/16/22 76.7 kg (169 lb) Subjective Assessment: Pt currently NPO. Pt transferred to ICU for hypotension and worsening renal function and hypoglycemia. Pt to have dialysis catheter placed, likely first dialysis will be tomorrow. Pt continues to be confused and lethargic. Pt was found to have breast cancer cells in bone marrow indicating stage 4 ca ncer/metastasis. Nutrition-Related Lab Values: Results from last 7 days Lab Units 05/27/25 1114 05/27/25 0800 05/27/25 0417 SODIUM mmol/L -- -- 137 POTASSIUM mmol/L -- -- 3.6 PHOSPHORUS mg/dL -- -- 3.2 MAGNESIUM mg/dL -- -- 2.2 CHLORIDE mmol/L -- -- 101 CO2 mmol/L -- -- 26 BUN mg/dL -- -- 57* CREATININE mg/dL -- -- 4.91* EGFR mL/min/1.73m2 -- -- 8* CALCIUM mg/dL -- -- 8.2* BILIRUBIN TOTAL mg/dL -- -- 0.3 ALK PHOS unit/L -- -- 219* ALT unit/L -- -- 21 AST unit/L -- -- 58* POCT GLUCOSE mg/dL 98 < > -- GLUCOSE mg/dL -- -- 130* WBC AUTO K/mcL -- -- 10.2 < > = values in this interval not displayed. No results found for: LIPASE Results from last 7 days Lab Units 05/25/25 0559 HEMOGLOBIN A1C % 7.6* Medications: MEDSSCHEDULED[3] CONTINUOUS: MEDSCONTINUOUS[4] MEDSPRN[5] Food/Nutrition-Current Status: Intake Type: Other (Comment) (NPO) Current Diet Status: Appropriate Appetite: Fair Intake Amount (%): 50-75% (65% average of 3 recorded meals, but pt to lethargic to eat some meals) Intake Assessment: Inadequate Main IVF: Other (Comment) (D5 NaBicarb) Main IVF Rate (mL/hr): 50 Propofol?: No Barriers: Cognitive, Language (Ecuadorean speaking) Nutrition Focused Physical Findings: Overall Appearance: pt lying in bed Digestive System (Mouth to Rectum): Appetite change Nerves and Cognition: Lethargic Skin: left tibial venous ulcer, pressure injury right hip DTI, pressure injury right buttock DTI- seen by [facility] 05/27 Loss of Fat Location: Orbital, Ribs, Triceps Loss of Fat Amt-Orbital: Moderate Loss of Fat Amt-Triceps: Moderate Loss of Fat Amt-Ribs: Moderate Loss of Muscle Location: Temples, Clavicle, Interosseous Loss of Muscle Amt-Temples: Moderate Loss of Muscle Amt-Clavicle: Moderate Loss of Muscle Amt-Inter Musc: Moderate Nutrition Diagnosis: Code Type: Severe-Acute (E43) Severe-Acute Criteria: Weight Loss >7.5%/3 mos, Moderate Body Fat Depletion, Moderate Muscle Mass Depletion Status: Other (Comment) (ongoing) Diagnosis: Malnutrition Etiology: Increased demand for nutrient, Changes in taste and appetite or preference Symptoms: 27% weight loss over 3 months. moderate muscle and fat depletion Additional Nutrition Diagnosis?: Yes Status: No improvement Diagnosis: Inadequate Oral Intake Etiology: Physiologic causes, Changes in taste and appetite or preference Symptoms: weight loss, muscle and fat depletion Nutrition Interventions: Medical Food Supplement, Meals/Snacks Medical Food Supplement(s): Ensure Plus TID (when diet allows) Nutrition Education Follow for need Goals: Patient will tolerate diet progression. , Monitor/control glucose levels, Improvement in LFTs., Improvement in renal labs., Electrolytes within normal range., Minimize risk of refeeding syndrome., Maintain weight., Fluid accumulation resolved., Stooling appropriately., and Wound healing progress. Coordination of Patient Care: Verbal discussion with RN., Verbal discussion with provider., and Patient discussed during ICU rounds and nutrition plan of care updated accordingly. Monitoring/Evaluation: Food Intake, Medical Food Supp/Oral Nutrition Supp, Weight, Renal/Electrolyte Profile Follow Up: Nutrition Priority Level: High RD remains available and will continue to follow. Signature: Cris Burnett RD [1] History reviewed. No pertinent past medical history. [2] Past Surgical History: Procedure Laterality Date US GUIDED BREAST BIOPSY RIGHT Right 2020 [3] [Held by provider] acetaminophen, 1,000 mg, oral, q8h EMILY cefTRIAXone, 1 g, intravenous, q24h fluticasone propionate, 2 spray, Each Nostril, Daily metoprolol tartrate, 2.5 mg, intravenous, q6h [Held by provider] midodrine, 10 mg, oral, TID AC [Held by provider] multivitamin, 1 each, oral, Daily perflutren lipid microsphere (DEFINITY) 1.3 mL in sodium chloride 0.9% 8.7 mL injection, 10 mL, intravenous, Once in imaging rosuvastatin, 10 mg, oral, Nightly sodium chloride, 10 mL, intravenous, BID [Held by provider] sodium zirconium cyclosilicate, 10 g, oral, BID [Held by provider] tamoxifen, 20 mg, oral, Daily thiamine, 100 mg, oral, Daily [4] amiodarone, 0.5 mg/min, Last Rate: 0.5 mg/min (05/27/25 1300) heparin, 13 Units/kg/hr, Last Rate: Stopped (05/27/25 0400) sodium bicarbonate, 150 mEq, Last Rate: 50 mL/hr at 05/27/25 1300 [5] PRN medications: bisacodyL, dextrose 50%, dextrose 50%, dextrose, dextrose, heparin OR heparin, metoprolol tartrate, naloxone, ondansetron (ZOFRAN-ODT) disintegrating tablet OR ondansetron, oxyCODONE, polyetheylene glycol, sodium chloride, Insert peripheral IV AND Maintain IV accessAND Saline lock IV AND sodium chloride AND sodium chloride * Rosamaria Dye RN - 05/27/2025 1:07 PM EDT Images from the original note were not included. Wound Care Initial Consult Visit Date: 05/27/2025 Patient Name: Chayito Klein Date of : 1945 Reason for Consult: Wound RN Consult received to assess Rt hip, LLE and coccygeal area for wounds and recommend topical treatment. Patient Active Problem List Diagnosis Date Noted Hypotension 05/17/2025 Hypercalcemia 05/16/2025 [place] [place] [facility] [place] 05/16/2025 Severe protein-calorie malnutrition [place] [place] 05/16/2025 Acute metabolic encephalopathy 05/15/2025 Malignant neoplasm of overlapping sites of right breast in female, estrogen receptor positive [place] [place] [facility] [place] 07/24/2024 Cardiomyopathy [place] [place] [facility] [place] 06/14/2012 COPD (chronic obstructive pulmonary disease) [place] [place] [facility] [place] 06/14/2012 DM2 (diabetes mellitus, type 2) [place] [place] [facility] [place] 06/14/2012 HTN (hypertension) 06/14/2012 Hyperlipidemia with target LDL less than 70 06/14/2012 Observed sleep apnea 06/14/2012 Paroxysmal A-fib ([facility] [place] [facility] [place] 06/14/2012 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 Wound History: Patient admitted to ICU on 05/24/25, hospital admit 05/24/25. Nutritional Status: Poor oral nutritional intake. Pertinent Labs: Albumin Date Value Ref Range Status 05/27/2025 1.7 (L) 3.2 - 5.0 g/dL Final Albumin, Serum Date Value Ref Range Status 05/15/2025 2.2 (L) 2.9 - 4.1 g/dL Final WBC Date Value Ref Range Status 05/27/2025 10.2 4.8 - 10.8 K/mcL Final WBC, Urine Date Value Ref Range Status 05/24/2025 >4,000 (H) 0 - 4 /HPF Final Hemoglobin A1C Date Value Ref Range Status 05/25/2025 7.6 (H) <6.5 % Final Glucose POCT Date Value Ref Range Status 05/27/2025 98 70 - 100 mg/dL Final Wound Assessment: Wound Venous Ulcer 05/24/25 Tibial Left;Lateral;Outer (Active) Wound Image LLE with venous insufficiency and hemosiderin staining, no edema, waxy scales, anterior with small red superficial open wound, lateral with pale pink scar tissue and superficial x 2 open wounds 05/27/25 1016 Wound Bed Tissue Assessment Red 05/27/25 1200 Ivana-Wound Assessment Unable to assess 05/27/25816 Drainage Description Serosanguineous 05/27/251199 Drainage Amount Scant 05/27/25 1200 Treatments Cleansed 05/27/25 1200 Dressing Xeroform;Other (Comment);Billy;Gauze 05/27/25 1200 Dressing Changed Changed 05/27/251199 Dressing Status Clean;Dry;Intact 05/27/25 0817 Edges Poorly defined 05/25/25 1806 Wound Pressure Injury 05/27/25 Hip Right (Active) Wound Image Wound Assessment: Boggy and sloughing skin revealed pink and burgundy discolored wound 05/27/25 1030 Wound Bed Tissue Assessment [place] 05/27/25 1200 Ivana-Wound Assessment Dry 05/27/25 1130 Wound Length (cm) 3.5 cm 05/27/25 1030 Wound Width (cm) 3 cm 05/27/25 1030 Wound Surface Area (cm^2) 8.25 cm^2 05/27/25 1030 Wound Depth (cm) 0.1 cm 05/27/25 1030 Wound Volume (cm^3) 0.55 cm^3 05/27/25 1030 Treatments Cleansed 05/27/25 1200 Dressing Foam;Xeroform 05/27/25 1200 Dressing Changed New 05/27/25 1200 Dressing Status Clean;Dry;Intact 05/27/25 1130 Pressure Injury Stage DTPI 05/27/25 1200 Wound Pressure Injury 05/27/25 Buttocks Right (Active) Wound Image Wound Assessment: RT buttock with visual dark discoloration and boggy skin, coccyx and lower buttocks with darker discoloration of skin. Vice President Digital Strategist images taken on 05/26 did not reveal thermal anomaly and perhaps superficial discoloration amd will need to continue to monitor 05/27/25 1039 Wound Bed Tissue Assessment [place];Purple 05/27/25 1040 Ivana-Wound Assessment Intact 05/27/25 1200 Wound Length (cm) 4.5 cm 05/27/25 1039 Wound Width (cm) 1.5 cm 05/27/25 1039 Wound Surface Area (cm^2) 5.3 cm^2 05/27/25 1039 Wound Depth (cm) 0.1 cm 05/27/25 1039 Wound Volume (cm^3) 0.353 cm^3 05/27/25 1039 Treatments Cleansed 05/27/25 1200 Dressing Xeroform;Foam 05/27/25 1200 Dressing Changed New 05/27/25 1200 Dressing Status Clean;Intact;Dry 05/27/25 1040 Pressure Injury Stage DTPI 05/27/25 1200 Support Surface: Patient is in ICU care on [place] bed with LEAF monitor to assist with turning and repositioning schedule q 2hr and prn. Heels are intact with waffle boots. Wound Summary Assessment: see above Wound Plan: Rt hip- q 3 days and prn clean with NSS, apply xeroform, LG mepilex. Rt buttock- QOD apply xeroform, med mepilex and allevyn to sacrum, LLE apply vaseline and xeroform, dcd, billy change q 3 days and prn 05/27/2025 1:07 PM EDT * Edilma Reeves MD - 05/27/2025 12:09 PM EDT Images from the original note were not included. [facility] Cardiology- Cardiology Follow-up Note PATIENT NAME: Chayito Klein ([id number]) DOS: 05/27/25 ASSESSMENT & PLAN 79 y.o. female with known history of HFrEF, atrial fibrillation that is chronic in nature, metastatic breast cancer, hypertension, hyperlipidemia. She presented with altered mental status and was found to have acute kidney injury, hypercalcemia, hyperkalemia. She is going to get a permacath placed to initiate dialysis tomorrow. Renal medicine is also following-appreciate recs. In the setting of all this, she has been in RVR. It has been difficult to control her with AV joaquin blocking agents given persistently low EF and renal failure as well as hypotension. As such amiodarone was cautiously initiated (excepting the risk from intermittent interruptions to anticoagulation) given that we had no other options. Surprisingly, her heart rates have come down nicely with the addition of amiodaroneand she is doing much better. At this point, I would not make any changes to her medications. D/w Dr De Jesus. 1. J-qgv-mcpplageubs rate control on amiodarone alone, patient is actually euvolemic on exam, metoprolol IV is being given at 2.5 every 6 hours as well which is reasonable 2. History of HFrEF-standing IV metoprolol, cannot get any other GDMT due to renal failure and hypotension 3. Hyperlipidemia-continue rosuvastatin 10 mg at bedtime No problem-specific Assessment & Plan notes found for this encounter. SUBJECTIVE Patient denies any current symptoms and is feeling okay. She is going to be getting a tunneled lineplaced so that she can initiate dialysis for the first time tomorrow. PAST MEDICAL HISTORY She has no past medical history on file. PAST SURGICAL HISTORY She has a past surgical history that includes us guided breast biopsy right (Right, 2020). SOCIAL HISTORY Tob: reports that she has never smoked. She has never used smokeless tobacco. ETOH: reports that she does not currently use alcohol. Drug: reports no history of drug use. FAMILY HISTORY She family history is not on file. MEDICATIONS: SCHEDULED MEDICATIONS: MEDSSCHEDULED[1] PRN MEDICATIONS: MEDSPRN[2] DRIPS: MEDSCONTINUOUS[3] ALLERGIES: She has no known allergies. OBJECTIVE Vitals: 05/27/25 1200 BP: 105/78 Pulse: 85 Resp: (!) 9 Temp: 35.9 ??C (96.6 ??F) SpO2: 98% Body mass index is 27.07 kg/m??. PHYSICAL EXAMINATION: APPEARANCE: Alert and in no acute distress, very frail, appears slightly anxious and slightly confused EYES: PERRL, conjunctiva and sclera normal HENT: AT/NC, MMM NECK: JVP less then 8cm H2O, Neck supple HEART: Irregularly irregular, no murmurs gallop LUNG: clear to auscultation, anteriorly auscultated ABDOMEN: Bowel sounds normoactive, no bruits, soft, non-tender, without organomegaly or palpable masses EXTREMITIES: Extremities warm and well perfused without edema, 2+ peripheral pulses in all extremities NEURO: Awake, alert and oriented x 3, no gross focal abnormalities PSYCH: Appropriate, calm SKIN: Skin color, texture, turgor normal. No rashes or lesions. LABS: Lab Results Component Value Date GLUCOSE 98 05/27/2025 CALCIUM 8.2 (L) 05/27/2025 NA 137 05/27/2025 K 3.6 05/27/2025 CO2 26 05/27/2025 CL 101 05/27/2025 BUN 57 (H) 05/27/2025 CREATININE 4.91 (H) 05/27/2025 Lab Results Component Value Date WBC 10.2 05/27/2025 HGB 8.4 (L) 05/27/2025 HCT 27.8 (L) 05/27/2025 MCV 86.9 05/27/2025 PLT 252 05/27/2025 Lab Results Component Value Date INR 1.2 05/25/2025 INR 1.4 05/23/2025 INR 1.7 05/15/2025 No results found for: CKTOTAL , CKMB , CKMBINDEX , TROPONINI , HSTROPI CARDIOVASCULAR TESTING 05/15/25 TRANSTHORACIC ECHOCARDIOGRAM (TTE) COMPLETE (CONTRAST/BUBBLE/3D PRN) 05/27/2025 05/26/2025 Interpretation Summary Left ventricle cavity size is normal. Left ventricular systolic function is moderately decreased with an ejection fraction of 30-35%. Moderate LV global hypokinesis is present. Left ventricle wall thickness is normal. Abnormal left ventricular septal motion. Right ventricle cavity is mildly enlarged. Right ventricular systolic function is mildly reduced. Pulmonary artery systolic pressure is ~49 mmHg. The atria are dilated. Right atrial pressure is ~3 mmHg. Mild to moderate mitral regurgitation. Tricuspid valve demonstrates moderate regurgitation. See remainder of the report for additional findings. Signed by: Jhoan Tirado MD on 05/27/2025 9:01 AM [id number] most recently in the 70s to 90s, no significant pauses Thank you for allowing us to participate in this consultation. Please feel free to contact us with questions or concerns. We will continue to follow while inpatient.. [facility] [address] [place] [address] [1] [Held by provider] acetaminophen, 1,000 mg, oral, q8h EMILY cefTRIAXone, 1 g, intravenous, q24h fluticasone propionate, 2 spray, Each Nostril, Daily metoprolol tartrate, 2.5 mg, intravenous, q6h [Held by provider] midodrine, 10 mg, oral, TID AC [Held by provider] multivitamin, 1 each, oral, Daily perflutren lipid microsphere (DEFINITY) 1.3 mL in sodium chloride 0.9% 8.7 mL injection, 10 mL, intravenous, Once in imaging rosuvastatin, 10 mg, oral, Nightly sodium chloride, 10 mL, intravenous, BID [Held by provider] sodium zirconium cyclosilicate, 10 g, oral, BID [Held by provider] tamoxifen, 20 mg, oral, Daily thiamine, 100 mg, oral, Daily [2] PRN medications: bisacodyL, dextrose 50%, dextrose 50%, dextrose, dextrose, heparin OR heparin, metoprolol tartrate, naloxone, ondansetron (ZOFRAN-ODT) disintegrating tablet OR ondansetron, oxyCODONE, polyetheylene glycol, sodium chloride, Insert peripheral IV AND Maintain IV accessAND Saline lock IV AND sodium chloride AND sodium chloride [3] amiodarone, 0.5 mg/min, Last Rate: 0.5 mg/min (05/27/25 1200) heparin, 13 Units/kg/hr, Last Rate: Stopped (05/27/25 0400) sodium bicarbonate, 150 mEq, Last Rate: 50 mL/hr at 05/27/25 1200 * Polina Salguero RN - 05/27/2025 10:57 AM EDT Plan is for permacath and dialysis tomorrow. * Carlos Alberto Islas MD - 05/27/2025 10:36 AM EDT Images from the original note were not included. Progress Note CHIEF COMPLAINT F/u ZEN SUBJECTIVE Seen and examined D/w ICU MEDICAL HISTORY Medical History[1] MEDICATIONS MEDSSCHEDULED[2] MEDSPRN[3] MEDSCONTINUOUS[4] OBJECTIVE Vital signs in last 24 hours: Visit Vitals BP 106/79 Pulse 90 Temp 36 ??C (96.8 ??F) (Temporal) Resp 13 Intake/Output last 24 hours: Intake/Output Summary (Last 24 hours) at 05/27/2025 1036 Last data filed at 05/27/2025 1000 Gross per 24 hour Intake 2208.94 ml Output 1435 ml Net 773.94 ml Weights: Admission Weight: Weight: 49.9 kg (110 lb) Wt Readings from Last 3 Encounters: 05/26/25 67.1 kg (148 lb) 01/30/25 66.2 kg (146 lb) 07/24/24 68 kg (150 lb) Physical Exam: General: No acute distress HEENT: Normocephalic, atraumatic, anicteric Cardiovascular: S1 S2 normal Respiratory: unlabored Gl: soft non-distended Extremities: No cyanosis Neurological: Alert Integumentary: no rash Psych: Calm, cooperative LABS Results from last 7 days Lab Units 05/27/25 0417 05/26/25 0359 05/25/25 0559 WBC AUTO K/mcL 10.2 10.3 11.0* HEMOGLOBIN g/dL 8.4* 8.5* 8.7* HEMATOCRIT % 27.8* 28.9* 29.2* MCV FL 86.9 88.7 89.6 PLATELETS K/mcL 252 261 261 Results from last 7 days Lab Units 05/27/25 0417 05/26/25 1930 05/26/25 1141 CREATININE mg/dL 4.91* 4.86* 4.83* BUN mg/dL 57* 58* 57* SODIUM mmol/L 137 138 139 POTASSIUM mmol/L 3.6 3.7 3.7 CHLORIDE mmol/L 101 101 104 CO2 mmol/L 26 23 23 Phosphorus Date Value Ref Range Status 05/27/2025 3.2 2.5 - 4.5 mg/dL Final 05/26/2025 3.3 2.5 - 4.5 mg/dL Final 05/26/2025 3.2 2.5 - 4.5 mg/dL Final PTH Date Value Ref Range Status 05/16/2025 9.7 (L) 18.5 - 88.0 pcg/mL Final No results found for: IRON , TIBC , FERRITIN No results found for: COLORUA , CLARITYUA , SPECGRAVUA , PHUA , PROTUA , GLUCOSEUA , KETONESUA , BILIRUBINUA , BLOODUA , UROBILINOGUA , NITRITEUA IMPRESSION and PLAN ZEN Metastatic breast CA Poor kidney clearance ZEN due to acute tubular injury hypotensive No obstruction Not c/w contrast nephropathy Hypercalcemia due to metastatic breast CA Normal baseline kidney function Baseline creatinine is 0.7-0.[address] Zamarripa: discussion with patient's daughter and she is agreeable with trial of dialysis REC IR to placed dialysis tunneled catheter HD after placement of catheter Goals of care discussion Follow kidney function and electrolytes Carlos Alberto Islas MD [1] History reviewed. No pertinent past medical history. [2] [Held by provider] acetaminophen, 1,000 mg, oral, q8h EMILY cefTRIAXone, 1 g, intravenous, q24h fluticasone propionate, 2 spray, Each Nostril, Daily metoprolol tartrate, 2.5 mg, intravenous, q6h [Held by provider] midodrine, 10 mg, oral, TID AC [Held by provider] multivitamin, 1 each, oral, Daily perflutren lipid microsphere (DEFINITY) 1.3 mL in sodium chloride 0.9% 8.7 mL injection, 10 mL, intravenous, Once in imaging rosuvastatin, 10 mg, oral, Nightly sodium chloride, 10 mL, intravenous, BID [Held by provider] sodium zirconium cyclosilicate, 10 g, oral, BID [Held by provider] tamoxifen, 20 mg, oral, Daily thiamine, 100 mg, oral, Daily [3] PRN medications: dextrose 50%, dextrose 50%, dextrose, dextrose, heparin OR heparin, metoprolol tartrate, naloxone, ondansetron (ZOFRAN-ODT) disintegrating tablet OR ondansetron, oxyCODONE, polyetheylene glycol, sodium chloride, Insert peripheral IV AND Maintain IV access AND Saline lock IV AND sodium chloride AND sodium chloride [4] amiodarone, 0.5 mg/min, Last Rate: 0.5 mg/min (05/27/25 1000) heparin, 13 Units/kg/hr, Last Rate: Stopped (05/27/25 0400) sodium bicarbonate, 150 mEq, Last Rate: 50 mL/hr at 05/27/25 1000 * Charlotte Camara MD - 05/27/2025 8:39 AM EDT CCM PROGRESS NOTE Code Status: Full Code - Confirmed Length of Stay: 13 ICU Day: 4 SUBJECTIVE ICU COURSE SHEN Klein is a 79 y.o.,female presenting with weakness and altered mental status. 05/15 hospitalist admit note: Mrs. Rafael Klein is a 79-year-old Ecuadorean speaking female with PMH breast cancer follows with Dr. Joseph, Hypertension, Hyperlipidemia, HFrEF, COPD, paroxysmal atrial fibrillation on eliquis, amongst others seen today with educational interpreter and family for complaint of altered mental status. Patient was only oriented to person. Patient send reports that started a few days ago and she started tramadol for pain. She states she has not been eating or drinking as much she has had no appetite. She also denies any chest pain, shortness of breath, nausea or vomiting, abdominal pain, dysuria. She has not been febrile at home. She did have a bowel movement yesterday but her da ughter reports she has been constipated prior to this. She endorses that she has pain all over but is probably located in the lower back extending into her hips. She does endorse weakness and fatigueinto the ambulates with use of a cane but has been using a walker and is now not ambulating secondary to her ongoing generalized weakness. She had an outpatient CT scan on 04/26 with findings concerning for multiple myeloma versus metastatic disease. Given these findings and her confusion her primarycare decided to send her in for further evaluation. Of note her daughter reports that she has been taking Entresto for over 1 year now and she has been in contact with her primary care as well as line out man to determine if she should restart his medication or not. She still takes furosemide and spironolactone. Vitals are as follows: 36.4, pulse of 110, respiratory rate 22, bp of 133/83, pulse ox 95% on room air. Labs are notable for calcium of 12.1, albumin of 2.1, AST of 123, alk phos of 359, BNP of 199, CRP of greater than 190, oxycodone 13.8, INR 1.7. EKG 107 bpm atrial fibrillation. Chest x-ray pending formal read appears to show no pulmonary edema or pneumonia. Brain Ct showed no acute intracranial findings. Patient was given 1 L normal saline in the ED. Patient be transferred to the care of staff further management of their acute metabolic encephalopathy, hypercalcemia, multiple myeloma versus metastatic disease. 05/24 ICU admit note: Ms. Baig was admitted by the hospitalist service on 05/15, found to be hypercalcemic. She was diagnosed with metastatic breast cancer as the cause of her hypercalcemia. Hypercalcemia was treated and mental status improved. Please see the hospitalist dictated history and physical for the full details regarding her past medical, surgical, social histories. Please see hospitalist notes and linux consultant notes for details regarding hospital course. Chart, labs, studies reviewed in detail. I was asked by Dr Molina to evaluate Ms. Rafael Klein for ICU transfer in the setting of hypotension and worsening renal function, dialysis planned for tomorrow. The patient has had variable blood pressures dropping into the 80s over the course of the day today. No fevers or chills. Reports chest pain and back pain as well as abdominal pain. No dizziness or lightheadedness. Daughter is healthcare proxy. Patient full code. Patient transferred to the ICU for hemodynamic monitoring during initiation of dialysis, planned for tomorrow. [place] 05/25: Transfer of care received from [facility] NIGEL Conde. Overnight events and EMR reviewed. Patient examined and discussed with ICU bedside nurse and ICU multidisciplinary team on AM rounds. Overnight and AM noteable events include: Afeb VS acceptable without vasopressor support Hypotension significantly improved following IV calcium replacement for moderate hypocalcemia following necsssary treatment o HyperCalcemia with tratzoledronic acid on 05/16 . Cum I/O 1497 ml with UO 20-35 cc/h Serum Calcium has decreased from 12.1(05/15) to 6.9 ( today-05/25) Hyperkalemia has resolved from 6.0 (05/24) to 4.3 today on lokelma No new clinical events overnight B12, folate, RPR, TSH. Patient Discussed with Dr Zamarripa(Nephrology) - no acute indication for HD today: will replace low Calcium, trial IV Bumex, continue lokelma and IV bicarb LOIACONO 05/26: Transfer of care received from [facility] nocturnquang Crenshaw APRN. Overnight events and EMR reviewed. Patient examined and discussed with ICU bedside nurse and ICU Multidisciplinary team on AMrounds. Overnight and AM noteable events include: No new clinical events overnight Patient did not sleep well last night and is confused to place and partially to circumstance this AM Afebrile. Continued PAF with RVR but not sustained Blood cultures remain NGTD UO 35-60 cc/h (at target volume) on butmetanide with stable Cr while awaiting permacath tomorrow Serum Ca WNL K WNL Dig level 0.6 (WNL) No remarkable evidence of hydrostatic pulmonary edema RTA compensated on Bicarb IVFs No acute indications for HEAD SCORER/HD today LOIACONO 05/27: Transfer of care received from [facility] information systems security analystNIGEL Santiago. Overnight events and EMR reviewed. Patient examined and discussed with ICU bedside nurse and ICU Multidisciplinary team onAM rounds. Overnight and AM noteable events include: No new clinical events overnight Recurrent agitated delirium again this AM< with pt pulling at tubes and lines- she pulled out 1 of 2 PIVs Soft restraints(hand Mitts) were required Agitation clearing throughout the day patient is more cooperative and mid afternoon. A-fib/RVR heart rate with improved control on amiodarone infusion. Cardiology input (Dr. Reeves) reviewed and appreciated Hypocalcemia (ionized calcium 4.19) without ectopy has been replaced Patient taken to IR without ectopy R for permacath placement with plans for initiation of HD tomorrow. Plan to resume IV heparin without bolus 6 hours following permacath insertion. OBJECTIVE FLUID BALANCE VITAL SIGNS Intake/Output Summary (Last 24 hours) at 05/27/2025 0840 Last data filed at 05/27/2025 0800 Gross per 24 hour Intake 2075.6 ml Output 1445 ml Net 630.6 ml Weight change: -0.368 kg (-13 oz) Visit Vitals BP (!) 81/49 Pulse 80 Temp 36 ??C (96.8 ??F) (Temporal) Resp 12 OXYGENATION AND VENTILATION ABG No results found for: PHART , [id number] , PO2ART , CSK2PYF , [id number] , BEART , ALLENS , FIO2 PHYSICAL EXAMINATION Appearance: Elderly female, sleepy and relaxed after lorazepam overnight, resting comfortably in bed. No Acute Distress Mental Status: relaxed, not resistive Head Exam: Normocephalic, Symmetric HEENT: Sclera Anicteric, PERRL, EOMI, Moist Mucous Membranes, Trachea Midline, No JVD. Chest: CTA bilaterally. No Accessory Muscle Use. Cardiac: IRR without audible M/R/G. Normal peripheral pulses all 4 extremities. Abdomen: Soft, Non-tender, NABS Rectal Exam: Deferred : IUBC in place draining clear sundeep urine Skin: Skin Color Normal, Skin Temperature Normal, Skin Turgor Normal. CRF < 3sec Wound Present: No Upper Extremity Appearance: Normal, Symmetric. Extremity muscle appearance and tone are unremarkable. Lower Extremity Appearance: Chronic venous stasis changes bilaterally with 2+ symmetric BLE edema w/o palpable cords, cellulitis or calf discomfort. Normal, Symmetric. Extremity muscle appearance andtone are unremarkable. Neuro: nonfocal motor exam and without sensory deficit Follows Commands: yes Motor Response: symmetric, non-focally localizes noxious stimuli all 4 extremities Sensory Response: nonfocally localizes noxious stimuli all 4 extremities CURRENT MEDICATIONS Scheduled Meds: MEDSSCHEDULED[1] MEDSCONTINUOUS[2] MEDSPRN[3] Continuous Infusions:MEDSCONTINUOUS[4] PRN Meds: MEDSPRN[5] LINES & DRAINS Peripheral IV 05/27/25 Anterior;Right;Upper Arm (Active) Midline 05/24/25 Single Lumen Left Brachial (Active) Site Assessment Clean;Dry;Intact 05/27/25 0400 Distal Lumen Status Infusing 05/27/25 0400 Phlebitis Scale 0 05/27/25 0400 Length masha (cm) 0 cm 05/24/25 180 Extremity Circumference (cm) 30 cm 05/24/25 180 Dressing Type Transparent with Chlorhexidine Gluconate gel 05/27/25 0400 Dressing Status Clean;Dry;Intact 05/27/25 0400 Dressing Intervention New dressing 05/24/25 180 Dressing Change Due 05/31/25 05/24/251999 Line Necessity Yes, meets criteria 05/26/25 1035 Urethral Catheter Double-lumen 16 Fr. (Active) Site Assessment Clean;Skin intact 05/27/25 0400 Collection Container Standard drainage bag 05/27/25 0400 Securement Method Securing device (Describe) 05/26/25 194 Reason for Continuing Urinary Catheterization Critically ill and need for accurate measurements of I&O (e.g., hourly monitoring) 05/27/25 0400 Urinary Catheter Output (mL) 35 mL 05/27/25 0800 NUTRITION Diet Order: Dietary Orders (From admission, onward) Start Ordered 05/27/25 0710 Adult NPO diet Location: [facility]; Diet: NPO- Except for Medications Diet effective now Question Answer Comment Location [facility] Diet NPO- Except for Medications 05/27/25 0710 05/18/25 1235 Dietary nutrition supplements Two times daily (BID); [facility]; Standard Oral Supplement Continuous Comments: [place] or vanilla Question Answer Comment Frequency Two times daily (BID) Location [facility] Supplements Standard Oral Supplement 05/18/25 1234 LAB RESULTS Lab Results Component Value Date WBC 10.2 05/27/2025 RBC 3.20 (L) 05/27/2025 HGB 8.4 (L) 05/27/2025 HCT 27.8 (L) 05/27/2025 MCV 86.9 05/27/2025 MCHC 30.2 (L) 05/27/2025 RDW 20.1 (H) 05/27/2025 PLT 252 05/27/2025 MPV 10.4 05/27/2025 NRBC 0.5 05/27/2025 DIFF Lab Results Component Value Date LYMPHOPCT 15.5 05/27/2025 NEUTROABS 6.98 05/27/2025 LYMPHSABS 1.58 05/27/2025 MONOABS 1.29 (H) 05/27/2025 EOSABS 0.22 05/27/2025 BASOSABS 0.03 05/27/2025 IMMGRANABS 0.11 (H) 05/27/2025 RETIC No results found for: RETIC , RETICCTPCT Lab Results Component Value Date NA 137 05/27/2025 K 3.6 05/27/2025 CL 101 05/27/2025 CO2 26 05/27/2025 GLUCOSE 108 (H) 05/27/2025 BUN 57 (H) 05/27/2025 CREATININE 4.91 (H) 05/27/2025 CALCIUM 8.2 (L) 05/27/2025 PROT 5.6 (L) 05/27/2025 ALBUMIN 1.7 (L) 05/27/2025 BILITOT 0.3 05/27/2025 AST 58 (H) 05/27/2025 ALT 21 05/27/2025 URICACID 3.0 (L) 05/15/2025 PHOS 3.2 05/27/2025 MG 2.2 05/27/2025 ALKPHOS 219 (H) 05/27/2025 EGFR 8 (L) 05/27/2025 RADIOLOGY I have reviewed the relevant diagnostic imaging MICROBIOLOGY I have reviewed the relevant microbiology ASSESSMENT & PLAN Diagnosis (ACUTE/Chronic) Plan Neuro: Acute metabolic encephalopathy (improving) - due to Hypercalcemia Agitated delirium -Pain control: Acetaminophen -Sedation/Anxiety management: NA - F/U RPR Cardiovascular/Hematological: Arterial hypotension (multifactorial) - Marginal but compensated on midodrine pre-HD Afib with RVR (rate-controlled) Cardiomyopathy( EF 35%) HFrEF Chronic PAF (on Eliquis) Hyperlipidemia -Full Code - Confirmed -target MAP > 65 mmHg -F/U TTE -Continue metoprolol, midodrine, rosuvastatin -Hold digoxin and follow Dig level - resume apixaban following perma cath placement -Cardiology input (Dr. Reeves) reviewed and appreciated. -continue amiodarone infusion and follow LFTs Heme: Breast cancer with metastases to bone and brain -transfusion trigger Hb < 7.0 g/dl -VTE prophylaxis: mechanical, heparin IV until apixaban is resumed -Continue tamoxifen -Dr Joseph (Heme/Onc) is on Consult Pulmonary: COPD LEYDA Tracheal stenosis -Target SaO2 > 92% -Continue fluticasone -Albuterol nebs scheduled and PRN GI/Nutrition: Severe protein calorie malnutrition -Peptic Ulcer Prophylaxis: Pantoprazole -enteral feeds as possible -ondansetron PRN -Bicarb infusion for RTA until HD /Renal/Lytes: Hypercalcemia (controlled) -Improved after zoledronic acid on 05/16. -now mild asymptomatic Hypocalcemia Hyperkalemia (controlled) Acute metabolic acidosis(multifactorial) ZEN on CKD2 UTI -target UO > 0.5 cc/kg/h Adjusted IBW -replace electrolytes to WNL -IUBC for hourly UO while critically ill -Continue Lokelma -Continue Bumex until scheduled HD is initiated - Perma cath placement today followed by initiation of scheduled elective HD tomorrow - Nephrology input (Dr Islas) reviewed and appreciated - Hypocalcemia replacement in collaboration with Nephrology Endocrine: DM2 -target BG 140-180 -SSI ICU protocol ID: -Ceftriaxone for UTI -f/u all cultures -assess antimicrobials, when present, daily for potential de-escalation. Social: Patient/family (Daughter-Maggie Donald [[phone]] - is listed as HCA1 with Abdulaziz Ngo [[phone]] HCA2) updated regarding patient status, response to therapy and plan of care. Skin/Wound: -Wound prevention positioning DISPOSITION: Continue ICU level of care 88 minutes of critical care time was spent in direct patient care at the bedside or in the immediate area with this patient. They are acutely ill with system failure. They are at high risk for decompensation. This time was spent assessing and managing the patient, interpreting labs and imaging, coordinating care with other medical providers, and gathering history and discussing management and prognosis with family. Charlotte Camara MD [1] [Held by provider] acetaminophen, 1,000 mg, oral, q8h EMILY cefTRIAXone, 1 g, intravenous, q24h fluticasone propionate, 2 spray, Each Nostril, Daily metoprolol tartrate, 2.5 mg, intravenous, q6h [Held by provider] midodrine, 10 mg, oral, TID AC multivitamin, 1 each, oral, Daily perflutren lipid microsphere (DEFINITY) 1.3 mL in sodium chloride 0.9% 8.7 mL injection, 10 mL, intravenous, Once in imaging rosuvastatin, 10 mg, oral, Nightly sodium chloride, 10 mL, intravenous, BID [Held by provider] sodium zirconium cyclosilicate, 10 g, oral, BID [Held by provider] tamoxifen, 20 mg, oral, Daily thiamine, 100 mg, oral, Daily [2] amiodarone, 0.5 mg/min, Last Rate: 0.5 mg/min (05/27/25799) bumetanide, 0.5 mg/hr, Last Rate: Stopped (05/26/251822) heparin, 13 Units/kg/hr, Last Rate: Stopped (05/27/25399) sodium bicarbonate, 150 mEq, Last Rate: 50 mL/hr at 05/27/25 0800 [3] PRN medications: dextrose 50%, dextrose 50%, dextrose, dextrose, heparin OR heparin, metoprolol tartrate, naloxone, ondansetron (ZOFRAN-ODT) disintegrating tablet OR ondansetron, oxyCODONE, polyetheylene glycol, sodium chloride, Insert peripheral IV AND Maintain IV access AND Saline lock IV AND sodium chloride AND sodium chloride [4] amiodarone, 0.5 mg/min, Last Rate: 0.5 mg/min (05/27/25799) bumetanide, 0.5 mg/hr, Last Rate: Stopped (05/26/251822) heparin, 13 Units/kg/hr, Last Rate: Stopped (05/27/25399) sodium bicarbonate, 150 mEq, Last Rate: 50 mL/hr at 05/27/25 0800 [5] PRN medications: dextrose 50%, dextrose 50%, dextrose, dextrose, heparin OR heparin, metoprolol tartrate, naloxone, ondansetron (ZOFRAN-ODT) disintegrating tablet OR ondansetron, oxyCODONE, polyetheylene glycol, sodium chloride, Insert peripheral IV AND Maintain IV access AND Saline lock IV AND sodium chloride AND sodium chloride * Donatus Ironuma - 05/26/2025 2:58 PM EDT SPIRITUAL CARE Date/Time:05/26/25 at 2:58 PM EDT Type of Visit:Referral Reason for Visit: Spiritual/Emotional Support Time Spent: 20 Minutes [facility] Encounters: Spiritual Distress Assessment: Spiritual Assessment/Distress Spiritual Care Assessment: Assessment: Respond to referral to visit and provide support to Chayito who was feeling sad. Her son, Abdulaziz, was present in the room, seated in the chair. Jennifer, upon sighting control panel assembler, recognized him, told her son about control panel assembler's visit and support. She is Ecuadorean speaking, Abdulaziz, interprets. She was in good mood, no sign of sadness, most likely the presence of her son might have brought her comfort. Chayito, was looking much better, talking clearly, appear to be very happy. Stella jew is [employer], prayed for healing, recovery and returning to normal daily activities. They voiced appreciation of for the visit. Intervention: NE Spiritual Care Interventions : provided support and provided prayer Outcomes: expressed gratitude Plan of Care: Visit as needed *Reference: Spiritual Distress Assessment Tool: The SDAT is a clinical tool used by chaplains to identify unmet spiritual and emotional needs that can impact Goals of Care in the following categories: Spiritual Distress Assessment Legend Spiritual Needs Related Questions Meaning Are you having difficulties coping with what is happening to your now? Does your hospitalization have any repercussions on the way you live usually? Transcendence Do you have a particular jew, stella, or spirituality? Is your jew/spirituality/stella challenged by what is happening to you now? Values Do you think that the health professionals caring for you know you well enough? Do you feel that you are participating in the decisions made about your care? Psycho-Social Identity Do you have any worries or difficulties regarding your family or other persons close to you? Do you feel lonely? Do you have links to your stella community? SCALE 0= no evidence of unmet spiritual needs 1= some evidence of unmet spiritual needs 2= substantial evidence of unmet spiritual needs 3= evidence of severe unmet spiritual needs * Johann Zamarripa MD - 05/26/2025 9:16 AM EDT Images from the original note were not included. Progress Note CHIEF COMPLAINT F/u regarding ZEN Patient nonoliguric. Output 677 mL Overnight events noted SUBJECTIVE Sleepy but arousable MEDICAL HISTORY Medical History[1] MEDICATIONS MEDSSCHEDULED[2] MEDSPRN[3] MEDSCONTINUOUS[4] OBJECTIVE Vital signs in last 24 hours: Visit Vitals BP 95/59 Pulse (!) 136 Temp 35.9 ??C (96.6 ??F) (Temporal) Resp 15 Intake/Output last 24 hours: Intake/Output Summary (Last 24 hours) at 05/26/2025 0916 Last data filed at 05/26/2025 0800 Gross per 24 hour Intake 2176.09 ml Output 677 ml Net 1499.09 ml Weights: Admission Weight: Weight: 49.9 kg (110 lb) Wt Readings from Last 3 Encounters: 05/25/25 67.5 kg (148 lb 13 oz) 01/30/25 66.2 kg (146 lb) 07/24/24 68 kg (150 lb) Physical Exam: General: No acute distress HEENT: Normocephalic, atraumatic, anicteric Cardiovascular: S1 S2 normal Respiratory: unlabored Gl: soft non-distended Extremities: No cyanosis Neurological: Alert Integumentary: no rash Psych: Calm, cooperative LABS Results from last 7 days Lab Units 05/26/25 0359 05/25/25 0559 05/24/25 0237 WBC AUTO K/mcL 10.3 11.0* 11.9* 11.9* HEMOGLOBIN g/dL 8.5* 8.7* 9.1* 9.1* HEMATOCRIT % 28.9* 29.2* 31.2* 31.2* MCV FL 88.7 89.6 89.7 89.7 PLATELETS K/mcL 261 261 260 260 Results from last 7 days Lab Units 05/26/25 0533 05/25/25 2347 05/25/25 1823 CREATININE mg/dL 4.80* 4.92* 4.93* BUN mg/dL 54* 59* 60* SODIUM mmol/L 140 138 139 POTASSIUM mmol/L 4.0 3.8 4.1 CHLORIDE mmol/L 106 106 107 CO2 mmol/L 23 21 21 Phosphorus Date Value Ref Range Status 05/26/2025 3.0 2.5 - 4.5 mg/dL Final 05/25/2025 3.3 2.5 - 4.5 mg/dL Final 05/25/2025 3.0 2.5 - 4.5 mg/dL Final PTH Date Value Ref Range Status 05/16/2025 9.7 (L) 18.5 - 88.0 pcg/mL Final No results found for: IRON , TIBC , FERRITIN No results found for: COLORUA , CLARITYUA , SPECGRAVUA , PHUA , PROTUA , GLUCOSEUA , KETONESUA , BILIRUBINUA , BLOODUA , UROBILINOGUA , NITRITEUA IMPRESSION and PLAN Severe acute kidney injury in the setting of hypotension/likely acute tubular injury at this juncture Doubt contrast nephropathy as the timeline does not fit Urine sodium is elevated with hide fractional excretion of sodium consistent with acute tubular injury Hypercalcemia induced renal damage-patient calcium level is improved due to malignancy Baseline creatinine is 0.7-0.8 Myeloma screen was negative Breast CA with likely metastatic disease Hypercalcemia-bone biopsy consistent with metastatic carcinoma with bone primary Myeloma screen was negative Acute metabolic encephalopathy-resolved Hyperkalemia- Mild metabolic acidosis-resolved Emergent need for dialysis Patient was scheduled to have a permacath which was placed on hold on Tuesday as patient became unstable-I did have a discussion with patient patient's daughter- she was agreeable to trial of dialysis We will reevaluate on Tuesday for dialysis needs and Heparin management based on permacath Tachycardia management as per ICU team Cardiopulmonary support as per ICU Follow-up renal function in a.m. Watch calcium level and replace as needed Follow-up workup for hypercalcemia Patient has metastatic breast cancer i.e. metastasis to the bone confirmed by bone marrow biopsy Suggest goals of care discussion with the family given about diagnosis -Avoid nephrotoxins, such as NSAIDs, iodinated contrast, and phosphate enema, as able. -Dose all mediations for appropriate eGFR Thank you Johann Zamarripa MD [1] History reviewed. No pertinent past medical history. [2] acetaminophen, 1,000 mg, oral, q8h EMILY cefTRIAXone, 1 g, intravenous, q24h [Held by provider] digoxin, 125 mcg, oral, Once per day on Tuesday fluticasone propionate, 2 spray, Each Nostril, Daily metoprolol tartrate, 2.5 mg, intravenous, q6h midodrine, 10 mg, oral, TID AC multivitamin, 1 each, oral, Daily perflutren lipid microsphere (DEFINITY) 1.3 mL in sodium chloride 0.9% 8.7 mL injection, 10 mL, intravenous, Once in imaging rosuvastatin, 10 mg, oral, Nightly sodium chloride, 10 mL, intravenous, BID sodium zirconium cyclosilicate, 10 g, oral, BID tamoxifen, 20 mg, oral, Daily thiamine, 100 mg, oral, Daily [3] PRN medications: dextrose 50%, dextrose 50%, dextrose, dextrose, heparin OR heparin, metoprolol tartrate, naloxone, ondansetron (ZOFRAN-ODT) disintegrating tablet OR ondansetron, oxyCODONE, polyetheylene glycol, sodium chloride, Insert peripheral IV AND Maintain IV access AND Saline lock IV AND sodium chloride AND sodium chloride [4] bumetanide, 0.5 mg/hr, Last Rate: 0.5 mg/hr (05/26/25639) heparin, 13 Units/kg/hr, Last Rate: 13 Units/kg/hr (05/26/25639) sodium bicarbonate, 150 mEq, Last Rate: 50 mL/hr at 05/26/2540 * Charlotte Camara MD - 05/26/2025 6:12 AM EDT CCM PROGRESS NOTE Code Status: Full Code - Confirmed Length of Stay: 12 ICU Day: 3 SUBJECTIVE ICU COURSE SHEN Klein is a 79 y.o.,female presenting with weakness and altered mental status. 05/15 hospitalist admit note: Mrs. Rafael Klein is a 79-year-old Ecuadorean speaking female with PMH breast cancer follows with Dr. Joseph, Hypertension, Hyperlipidemia, HFrEF, COPD, paroxysmal atrial fibrillation on eliquis, amongst others seen today with educational interpreter and family for complaint of altered mental status. Patient was only oriented to person. Patient send reports that started a few days ago and she started tramadol for pain. She states she has not been eating or drinking as much she has had no appetite. She also denies any chest pain, shortness of breath, nausea or vomiting, abdominal pain, dysuria. She has not been febrile at home. She did have a bowel movement yesterday but her da ughter reports she has been constipated prior to this. She endorses that she has pain all over but is probably located in the lower back extending into her hips. She does endorse weakness and fatigueinto the ambulates with use of a cane but has been using a walker and is now not ambulating secondary to her ongoing generalized weakness. She had an outpatient CT scan on 04/26 with findings concerning for multiple myeloma versus metastatic disease. Given these findings and her confusion her primarycare decided to send her in for further evaluation. Of note her daughter reports that she has been taking Entresto for over 1 year now and she has been in contact with her primary care as well as line out man to determine if she should restart his medication or not. She still takes furosemide and spironolactone. Vitals are as follows: 36.4, pulse of 110, respiratory rate 22, bp of 133/83, pulse ox 95% on room air. Labs are notable for calcium of 12.1, albumin of 2.1, AST of 123, alk phos of 359, BNP of 199, CRP of greater than 190, oxycodone 13.8, INR 1.7. EKG 107 bpm atrial fibrillation. Chest x-ray pending formal read appears to show no pulmonary edema or pneumonia. Brain Ct showed no acute intracranial findings. Patient was given 1 L normal saline in the ED. Patient be transferred to the care of staff further management of their acute metabolic encephalopathy, hypercalcemia, multiple myeloma versus metastatic disease. 05/24 ICU admit note: Ms. Baig was admitted by the hospitalist service on 05/15, found to be hypercalcemic. She was diagnosed with metastatic breast cancer as the cause of her hypercalcemia. Hypercalcemia was treated and mental status improved. Please see the hospitalist dictated history and physical for the full details regarding her past medical, surgical, social histories. Please see hospitalist notes and linux consultant notes for details regarding hospital course. Chart, labs, studies reviewed in detail. I was asked by Dr Molina to evaluate Ms. Rafael Klein for ICU transfer in the setting of hypotension and worsening renal function, dialysis planned for tomorrow. The patient has had variable blood pressures dropping into the 80s over the course of the day today. No fevers or chills. Reports chest pain and back pain as well as abdominal pain. No dizziness or lightheadedness. Daughter is healthcare proxy. Patient full code. Patient transferred to the ICU for hemodynamic monitoring during initiation of dialysis, planned for tomorrow. LOIACONO 05/25: Transfer of care received from [facility] NIGEL Conde. Overnight events and EMR reviewed. Patient examined and discussed with ICU bedside nurse and ICU multidisciplinary team on AM rounds. Overnight and AM noteable events include: Afeb VS acceptable without vasopressor support Hypotension significantly improved following IV calcium replacement for moderate hypocalcemia following necsssary treatment o HyperCalcemia with tratzoledronic acid on 05/16 . Cum I/O 1497 ml with UO 20-35 cc/h Serum Calcium has decreased from 12.1(05/15) to 6.9 ( today-05/25) Hyperkalemia has resolved from 6.0 (05/24) to 4.3 today on lokelma No new clinical events overnight B12, folate, RPR, TSH. Patient Discussed with Dr Zamarripa(Nephrology) - no acute indication for HD today: will replace low Calcium, trial IV Bumex, continue lokelma and IV bicarb LOIACONO 05/26: Transfer of care received from [facility] yassine Crenshaw APRN. Overnight events and EMR reviewed. Patient examined and discussed with ICU bedside nurse and ICU Multidisciplinary team on AMrounds. Overnight and AM noteable events include: No new clinical events overnight Patient did not sleep well last night and is confused to place and partially to circumstance this AM Afebrile. Continued PAF with RVR but not sustained Blood cultures remain NGTD UO 35-60 cc/h (at target volume) on butmetanide with stable Cr while awaiting permacath tomorrow Serum Ca WNL K WNL Dig level 0.6 (WNL) No remarkable evidence of hydrostatic pulmonary edema RTA compensated on Bicarb IVFs No acute indications for HEAD SCORER/HD today OBJECTIVE FLUID BALANCE VITAL SIGNS Intake/Output Summary (Last 24 hours) at 05/26/2025 0612 Last data filed at 05/26/2025 0610 Gross per 24 hour Intake 2368.62 ml Output 437 ml Net 1931.62 ml Weight change: 2 kg (4 lb 6.6 oz) Visit Vitals BP 90/62 Pulse 87 Temp 35.9 ??C (96.6 ??F) (Temporal) Resp (!) 6 OXYGENATION AND VENTILATION ABG No results found for: PHART , [id number] , PO2ART , [id number] , [id number] , BEART , ALLENS , FIO2 PHYSICAL EXAMINATION Appearance: Elderly female, cheerful, resting comfortably in bed. No Acute Distress Mental Status: A,A, & O x 3. appropriately conversant Head Exam: Normocephalic, Symmetric HEENT: Sclera Anicteric, PERRL, EOMI, Moist Mucous Membranes, Trachea Midline, No JVD. Chest: CTA bilaterally. No Accessory Muscle Use. Cardiac: IRR without audible M/R/G. Normal peripheral pulses all 4 extremities. Abdomen: Soft, Non-tender, NABS Rectal Exam: Deferred : IUBC in place draining clear sundeep urine Skin: Skin Color Normal, Skin Temperature Normal, Skin Turgor Normal. CRF < 3sec Wound Present: No Upper Extremity Appearance: Normal, Symmetric. Extremity muscle appearance and tone are unremarkable. Lower Extremity Appearance: Chronic venous stasis changes bilaterally with 2+ symmetric BLE edema w/o palpable cords, cellulitis or calf discomfort. Normal, Symmetric. Extremity muscle appearance andtone are unremarkable. Neuro: nonfocal motor exam and without sensory deficit Follows Commands: yes Motor Response: symmetric, non-focally localizes noxious stimuli all 4 extremities Sensory Response: nonfocally localizes noxious stimuli all 4 extremities CURRENT MEDICATIONS Scheduled Meds: MEDSSCHEDULED[1] MEDSCONTINUOUS[2] MEDSPRN[3] Continuous Infusions:MEDSCONTINUOUS[4] PRN Meds: MEDSPRN[5] LINES & DRAINS Peripheral IV 05/23/25 Anterior;Right Forearm (Active) Site Assessment Clean;Dry;Intact 05/26/25 0400 Dressing Type Transparent 05/26/25 0400 Line Status Infusing 05/26/25 0400 Phlebitis Scale 0 05/26/25 0400 Dressing Status Clean;Dry;Intact 05/26/25 0400 Midline 05/24/25 Single Lumen Left Brachial (Active) Site Assessment Clean;Dry;Intact 05/26/25 040 Distal Lumen Status Infusing;Lab draw 05/26/25 040 Phlebitis Scale 0 05/26/25 0400 Length masha (cm) 0 cm 05/24/25 180 Extremity Circumference (cm) 30 cm 05/24/25 180 Dressing Type Transparent with Chlorhexidine Gluconate gel 05/26/25 040 Dressing Status Clean;Dry;Intact 05/26/25 040 Dressing Intervention New dressing 05/24/251801 Dressing Change Due 05/31/25 05/24/251999 Urethral Catheter Double-lumen 16 Fr. (Active) Site Assessment Clean;Skin intact 05/26/25399 Collection Container Standard drainage bag 05/26/25399 Securement Method Securing device (Describe) 05/25/251999 Reason for Continuing Urinary Catheterization Critically ill and need for accurate measurements of I&O (e.g., hourly monitoring) 05/26/25399 Urinary Catheter Output (mL) 50 mL 05/26/25 0000 NUTRITION Diet Order: Dietary Orders (From admission, onward) Start Ordered 05/24/25 1327 Adult diet [facility]; General; Potassium 2 gm Restriction (50 mEq), Renal- Chronic Kidney Disease Diet effective now Question Answer Comment Location [facility] Diet Type (req) General General Diet Potassium 2 gm Restriction (50 mEq) General Diet Renal- Chronic Kidney Disease 05/24/25 1327 05/18/25 1235 Dietary nutrition supplements Two times daily (BID); [facility]; Standard Oral Supplement Continuous Comments: [place] or vanilla Question Answer Comment Frequency Two times daily (BID) Location [facility] Supplements Standard Oral Supplement 05/18/25 1234 LAB RESULTS Lab Results Component Value Date WBC 10.3 05/26/2025 RBC 3.30 (L) 05/26/2025 HGB 8.5 (L) 05/26/2025 HCT 28.9 (L) 05/26/2025 MCV 88.7 05/26/2025 MCHC 29.4 (L) 05/26/2025 RDW 19.9 (H) 05/26/2025 PLT 261 05/26/2025 MPV 11.0 05/26/2025 NRBC 0.5 05/26/2025 DIFF Lab Results Component Value Date LYMPHOPCT 12.1 05/26/2025 NEUTROABS 7.88 (H) 05/26/2025 LYMPHSABS 1.25 05/26/2025 MONOABS 0.86 05/26/2025 EOSABS 0.17 05/26/2025 BASOSABS 0.03 05/26/2025 IMMGRANABS 0.10 (H) 05/26/2025 RETIC No results found for: RETIC , RETICCTPCT Lab Results Component Value Date NA 138 05/25/2025 K 3.8 05/25/2025 CL 106 05/25/2025 CO2 21 05/25/2025 GLUCOSE 96 05/26/2025 BUN 59 (H) 05/25/2025 CREATININE 4.92 (H) 05/25/2025 CALCIUM 7.9 (L) 05/25/2025 PROT 6.0 05/25/2025 ALBUMIN 1.9 (L) 05/25/2025 BILITOT 0.3 05/25/2025 AST 76 (H) 05/25/2025 ALT 23 05/25/2025 URICACID 3.0 (L) 05/15/2025 PHOS 3.3 05/25/2025 MG 2.2 05/25/2025 ALKPHOS 221 (H) 05/25/2025 EGFR 8 (L) 05/25/2025 RADIOLOGY I have reviewed the relevant diagnostic imaging MICROBIOLOGY I have reviewed the relevant microbiology ASSESSMENT & PLAN Diagnosis (ACUTE/Chronic) Plan Neuro: Acute metabolic encephalopathy (improving) - due to Hypercalcemia -Pain control: Acetaminophen -Sedation/Anxiety management: NA - F/U RPR Cardiovascular/Hematological: Arterial hypotension (multifactorial) - Marginal but compensated on midodrine pre-HD Afib with RVR (rate-controlled) Cardiomyopathy( EF 35%) HFrEF Chronic PAF (on Eliquis) Hyperlipidemia -Full Code - Confirmed -target MAP > 65 mmHg -F/U TTE -Continue metoprolol, midodrine, rosuvastatin -Hold digoxin and follow Dig level - resume apixaban following perma cath placement -Cardiology consult(Dr. Bailey) for chronic CHF management reviewed and appreciated -start amiodarone infusion and follow LFTs Heme: Breast cancer with metastases to bone and brain -transfusion trigger Hb < 7.0 g/dl -VTE prophylaxis: mechanical, heparin IV until apixaban is resumed -Continue tamoxifen -Dr Joseph (Heme/Onc) is on Consult Pulmonary: COPD LEYDA Tracheal stenosis -Target SaO2 > 92% -Continue fluticasone -Albuterol nebs scheduled and PRN GI/Nutrition: Severe protein calorie malnutrition -Peptic Ulcer Prophylaxis: Pantoprazole -enteral feeds as possible -ondansetron PRN -Bicarb infusion for RTA until HD /Renal/Lytes: Hypercalcemia (controlled) -Improved after zoledronic acid on 05/16. -now mild asymptomatic Hypocalcemia Hyperkalemia (controlled) Acute metabolic acidosis(multifactorial) ZEN on CKD2 UTI -target UO > 0.5 cc/kg/h Adjusted IBW -replace electrolytes to WNL -IUBC for hourly UO while critically ill -Continue Lokelma -Continue Bumex until scheduled HD is initiated - Perma cath placement Tuesday followed by initiation of scheduled elective HD - Nephrology input (Dr Zamarripa) reviewed and appreciated - Hypocalcemia replacement in collaboration with Nephrology Endocrine: DM2 -target BG 140-180 -SSI ICU protocol ID: -Ceftriaxone for UTI -f/u all cultures -assess antimicrobials, when present, daily for potential de-escalation. Social: Patient/family (Daughter-Maggie Donald [[phone]] - is listed as HCA1 with Abdulaziz Jeni [[phone]] HCA2) updated regarding patient status, response to therapy and plan of care. Skin/Wound: -Wound prevention positioning DISPOSITION: Continue ICU level of care 88 minutes of critical care time was spent in direct patient care at the bedside or in the immediate area with this patient. They are acutely ill with system failure. They are at high risk for decompensation. This time was spent assessing and managing the patient, interpreting labs and imaging, coordinating care with other medical providers, and gathering history and discussing management and prognosis with family. Charlotte Camara MD [1] acetaminophen, 1,000 mg, oral, q8h EMILY calcium gluconate, 1 g, intravenous, Once cefTRIAXone, 1 g, intravenous, q24h [Held by provider] digoxin, 125 mcg, oral, Once per day on Tuesday fluticasone propionate, 2 spray, Each Nostril, Daily metoprolol tartrate, 2.5 mg, intravenous, q6h midodrine, 10 mg, oral, TID AC multivitamin, 1 each, oral, Daily perflutren lipid microsphere (DEFINITY) 1.3 mL in sodium chloride 0.9% 8.7 mL injection, 10 mL, intravenous, Once in imaging rosuvastatin, 10 mg, oral, Nightly sodium chloride, 10 mL, intravenous, BID [Held by provider] sodium zirconium cyclosilicate, 10 g, oral, BID tamoxifen, 20 mg, oral, Daily thiamine, 100 mg, oral, Daily [2] bumetanide, 0.5 mg/hr, Last Rate: 0.5 mg/hr (05/26/25441) heparin, 13 Units/kg/hr, Last Rate: 13 Units/kg/hr (05/26/25441) sodium bicarbonate, 150 mEq, Last Rate: 50 mL/hr at 05/26/25 044 [3] PRN medications: dextrose 50%, dextrose 50%, dextrose, dextrose, heparin OR heparin, metoprolol tartrate, naloxone, ondansetron (ZOFRAN-ODT) disintegrating tablet OR ondansetron, oxyCODONE, polyetheylene glycol, sodium chloride, Insert peripheral IV AND Maintain IV access AND Saline lock IV AND sodium chloride AND sodium chloride [4] bumetanide, 0.5 mg/hr, Last Rate: 0.5 mg/hr (05/26/25441) heparin, 13 Units/kg/hr, Last Rate: 13 Units/kg/hr (05/26/25441) sodium bicarbonate, 150 mEq, Last Rate: 50 mL/hr at 05/26/25441 [5] PRN medications: dextrose 50%, dextrose 50%, dextrose, dextrose, heparin OR heparin, metoprolol tartrate, naloxone, ondansetron (ZOFRAN-ODT) disintegrating tablet OR ondansetron, oxyCODONE, polyetheylene glycol, sodium chloride, Insert peripheral IV AND Maintain IV access AND Saline lock IV AND sodium chloride AND sodium chloride * DIMAS Myers - 05/25/2025 11:03 AM EDT Medical record reviewed. [place] [facility] [place]. Disposition documented --home with Baylee MANJARREZ. Physical therapy assessment on 05-21-25, recommending placement at a retirement facility. Patient resides alone and is a maximum assist with ADL's. Call placed to primary health care agent, Pramod to verify dc plan/disposition. Daughter is requesting rehab. Listing of area facilities and medicare compare web site left bedside for daughter's review. Daughter anticipates call on 05-27-25 toidentify facilities of choice. Patient presently at an ICU level of care. * Zina Oconnor RN - 05/25/2025 10:28 AM EDT Goals: Identify possible barriers to meeting goals/advancing plan of care: critical care pt Stability of the patient: Moderately Unstable - Medium risk of patient condition declining or worsening End of Shift Summary: continue to monitor * Johann Zamarripa MD - 05/25/2025 9:56 AM EDT Images from the original note were not included. Progress Note CHIEF COMPLAINT F/u regarding ZEN And ICU SUBJECTIVE Patient seen and examined Sleepy but arousable Urine output about 20 to 25 mL/h MEDICAL HISTORY Medical History[1] MEDICATIONS MEDSSCHEDULED[2] MEDSPRN[3] MEDSCONTINUOUS[4] OBJECTIVE Vital signs in last 24 hours: Visit Vitals BP 82/50 Pulse (!) 112 Temp 36.8 ??C (98.2 ??F) Resp 14 Intake/Output last 24 hours: Intake/Output Summary (Last 24 hours) at 05/25/2025 0956 Last data filed at 05/25/2025 0936 Gross per 24 hour Intake 2244.79 ml Output 395 ml Net 1849.79 ml Weights: Admission Weight: Weight: 49.9 kg (110 lb) Wt Readings from Last 3 Encounters: 05/25/25 67.5 kg (148 lb 13 oz) 01/30/25 66.2 kg (146 lb) 07/24/24 68 kg (150 lb) Physical Exam: General: No acute distress HEENT: Normocephalic, atraumatic, anicteric Cardiovascular: S1 S2 normal Respiratory: unlabored Gl: soft non-distended Extremities: No cyanosis Neurological: Alert Integumentary: no rash Psych: Calm, cooperative LABS Results from last 7 days Lab Units 05/25/25 0559 05/24/25 0237 05/23/25 0549 WBC AUTO K/mcL 11.0* 11.9* 11.9* 11.6* HEMOGLOBIN g/dL 8.7* 9.1* 9.1* 10.1* HEMATOCRIT % 29.2* 31.2* 31.2* 35.3 MCV FL 89.6 89.7 89.7 92.9 PLATELETS K/mcL 261 260 260 249 Results from last 7 days Lab Units 05/25/25 0559 05/24/25 0237 05/24/25 0025 CREATININE mg/dL 4.91* 4.52* 4.36* BUN mg/dL 61* 53* 54* SODIUM mmol/L 140 140 138 POTASSIUM mmol/L 4.3 5.8* 6.0* CHLORIDE mmol/L 109 116* 115* CO2 mmol/L 17* 15* 15* Phosphorus Date Value Ref Range Status 05/25/2025 3.0 2.5 - 4.5 mg/dL Final 05/24/2025 3.0 2.5 - 4.5 mg/dL Final PTH Date Value Ref Range Status 05/16/2025 9.7 (L) 18.5 - 88.0 pcg/mL Final No results found for: IRON , TIBC , FERRITIN No results found for: COLORUA , CLARITYUA , SPECGRAVUA , PHUA , PROTUA , GLUCOSEUA , KETONESUA , BILIRUBINUA , BLOODUA , UROBILINOGUA , NITRITEUA IMPRESSION and PLAN Severe acute kidney injury in the setting of hypotension/likely acute tubular injury at this juncture Doubt contrast nephropathy as the timeline does not fit Urine sodium is elevated with hide fractional excretion of sodium consistent with acute tubular injury Clinically patient looks prerenal multifactorial reasons including hypocalcemia- adequately hydrated Baseline creatinine is 0.7-0.8 Myeloma screen was negative Breast CA with likely metastatic disease Hypercalcemia-likely due to with PTH which is suppressed likely due to malignancy Myeloma screen was negative and this could likely be due to breast CA with mets Acute metabolic encephalopathy-resolved Hyperkalemia Mild metabolic acidosis Permacath today if IR able to place it Heparin management based on permacath Tachycardia has improved Cardiopulmonary support as per ICU Will continue to follow regarding HEAD SCORER needs Follow-up renal function in a.m. Watch calcium level Follow-up workup for hypercalcemia Will check kappa lambda ratio in the serum -Avoid nephrotoxins, such as NSAIDs, iodinated contrast, and phosphate enema, as able. -Dose all mediations for appropriate eGFR Thank you Johann Zamarripa MD [1] History reviewed. No pertinent past medical history. [2] acetaminophen, 1,000 mg, oral, q8h EMILY calcium gluconate, 2 g, intravenous, Once cefTRIAXone, 1 g, intravenous, q24h [Held by provider] digoxin, 125 mcg, oral, Once per day on Tuesday fluticasone propionate, 2 spray, Each Nostril, Daily midodrine, 10 mg, oral, TID AC multivitamin, 1 each, oral, Daily perflutren lipid microsphere (DEFINITY) 1.3 mL in sodium chloride 0.9% 8.7 mL injection, 10 mL, intravenous, Once in imaging rosuvastatin, 10 mg, oral, Nightly sodium chloride, 10 mL, intravenous, BID sodium zirconium cyclosilicate, 10 g, oral, BID tamoxifen, 20 mg, oral, Daily thiamine, 100 mg, oral, Daily [3] PRN medications: dextrose 50%, dextrose 50%, dextrose, dextrose, heparin OR heparin, metoprolol tartrate, naloxone, ondansetron (ZOFRAN-ODT) disintegrating tablet OR ondansetron, oxyCODONE, polyetheylene glycol, sodium chloride, Insert peripheral IV AND Maintain IV access AND Saline lock IV AND sodium chloride AND sodium chloride [4] heparin, 13 Units/kg/hr, Last Rate: Stopped (05/25/25 0614) sodium bicarbonate, 150 mEq, Last Rate: 75 mL/hr at 05/25/25 0848 * Charlotte Camara MD - 05/25/2025 7:44 AM EDT CCM PROGRESS NOTE Code Status: Full Code - Confirmed Length of Stay: 11 ICU Day: 2 SUBJECTIVE ICU COURSE SHEN Klein is a 79 y.o.,female presenting with weakness and altered mental status. 05/15 hospitalist admit note: Mrs. Rafael Klein is a 79-year-old Ecuadorean speaking female with PMH breast cancer follows with Dr. Joseph, Hypertension, Hyperlipidemia, HFrEF, COPD, paroxysmal atrial fibrillation on eliquis, amongst others seen today with educational interpreter and family for complaint of altered mental status. Patient was only oriented to person. Patient send reports that started a few days ago and she started tramadol for pain. She states she has not been eating or drinking as much she has had no appetite. She also denies any chest pain, shortness of breath, nausea or vomiting, abdominal pain, dysuria. She has not been febrile at home. She did have a bowel movement yesterday but her da ughter reports she has been constipated prior to this. She endorses that she has pain all over but is probably located in the lower back extending into her hips. She does endorse weakness and fatigueinto the ambulates with use of a cane but has been using a walker and is now not ambulating secondary to her ongoing generalized weakness. She had an outpatient CT scan on 04/26 with findings concerning for multiple myeloma versus metastatic disease. Given these findings and her confusion her primarycare decided to send her in for further evaluation. Of note her daughter reports that she has been taking Entresto for over 1 year now and she has been in contact with her primary care as well as line out man to determine if she should restart his medication or not. She still takes furosemide and spironolactone. Vitals are as follows: 36.4, pulse of 110, respiratory rate 22, bp of 133/83, pulse ox 95% on room air. Labs are notable for calcium of 12.1, albumin of 2.1, AST of 123, alk phos of 359, BNP of 199, CRP of greater than 190, oxycodone 13.8, INR 1.7. EKG 107 bpm atrial fibrillation. Chest x-ray pending formal read appears to show no pulmonary edema or pneumonia. Brain Ct showed no acute intracranial findings. Patient was given 1 L normal saline in the ED. Patient be transferred to the care of staff further management of their acute metabolic encephalopathy, hypercalcemia, multiple myeloma versus metastatic disease. 05/24 ICU admit note: Ms. Baig was admitted by the hospitalist service on 05/15, found to be hypercalcemic. She was diagnosed with metastatic breast cancer as the cause of her hypercalcemia. Hypercalcemia was treated and mental status improved. Please see the hospitalist dictated history and physical for the full details regarding her past medical, surgical, social histories. Please see hospitalist notes and linux consultant notes for details regarding hospital course. Chart, labs, studies reviewed in detail. I was asked by Dr Molina to evaluate Ms. Rafael Klein for ICU transfer in the setting of hypotension and worsening renal function, dialysis planned for tomorrow. The patient has had variable blood pressures dropping into the 80s over the course of the day today. No fevers or chills. Reports chest pain and back pain as well as abdominal pain. No dizziness or lightheadedness. Daughter is healthcare proxy. Patient full code. Patient transferred to the ICU for hemodynamic monitoring during initiation of dialysis, planned for tomorrow. BONILLA 05/25: Transfer of care received from [facility]. Overnight events and EMR reviewed. Patient examined and discussed with ICU bedside nurse and ICU multidisciplinary team on AM rounds. Overnight and AM noteable events include: Afeb VS acceptable without vasopressor support Hypotension significantly improved following IV calcium replacement for moderate hypocalcemia following necsssary treatment o HyperCalcemia with tratzoledronic acid on 05/16 . Cum I/O 1497 ml with UO 20-35 cc/h Serum Calcium has decreased from 12.1(05/15) to 6.9 ( today-05/25) Hyperkalemia has resolved from 6.0 (05/24) to 4.3 today on lokelma No new clinical events overnight B12, folate, RPR, TSH. Patient Discussed with Dr Zamarripa(Nephrology) - no acute indication for HD today: will replace low Calcium, trial IV Bumex, continue lokelma and IV bicarb OBJECTIVE FLUID BALANCE VITAL SIGNS Intake/Output Summary (Last 24 hours) at 05/25/2025 0744 Last data filed at 05/25/2025 0600 Gross per 24 hour Intake 1832.69 ml Output 335 ml Net 1497.69 ml Weight change: 3.312 kg (7 lb 4.8 oz) Visit Vitals BP 98/76 Pulse (!) 113 Temp 36.8 ??C (98.2 ??F) (Temporal) Resp 18 OXYGENATION AND VENTILATION ABG No results found for: PHART , VLF8VAU , PO2ART , HYQ4NJC , B4ZPFOMX , BEART , ALLENS , FIO2 PHYSICAL EXAMINATION Appearance: Elderly female resting comfortably in bed. No Acute Distress Mental Status: A,A, & O x 3. appropriately conversant Head Exam: Normocephalic, Symmetric HEENT: Sclera Anicteric, PERRL, EOMI, Moist Mucous Membranes, Trachea Midline, No JVD. Chest: CTA bilaterally. No Accessory Muscle Use. Cardiac: IRR without audible M/R/G. Normal peripheral pulses all 4 extremities. Abdomen: Soft, Non-tender, NABS Rectal Exam: Deferred : IUBC in place draining clear sundeep urine Skin: Skin Color Normal, Skin Temperature Normal, Skin Turgor Normal. CRF < 3sec Wound Present: No Upper Extremity Appearance: Normal, Symmetric. Extremity muscle appearance and tone are unremarkable. Lower Extremity Appearance: Chronic venous stasis changes bilaterally with 2+ symmetric BLE edema w/o palpable cords, cellulitis or calf discomfort. Normal, Symmetric. Extremity muscle appearance andtone are unremarkable. Neuro: nonfocal motor exam and without sensory deficit Follows Commands: yes Motor Response: symmetric, non-focally localizes noxious stimuli all 4 extremities Sensory Response: nonfocally localizes noxious stimuli all 4 extremities CURRENT MEDICATIONS Scheduled Meds: MEDSSCHEDULED[1] MEDSCONTINUOUS[2] MEDSPRN[3] Continuous Infusions:MEDSCONTINUOUS[4] PRN Meds: MEDSPRN[5] LINES & DRAINS Peripheral IV 05/23/25 Anterior;Right Forearm (Active) Site Assessment Clean;Dry;Intact 05/25/25399 Dressing Type Transparent 05/25/25399 Line Status Flushed;Infusing 05/25/25399 Phlebitis Scale 0 05/25/25399 Dressing Status Clean;Dry;Intact 05/25/25 040 Midline 05/24/25 Single Lumen Left Brachial (Active) Site Assessment Clean;Dry;Intact 05/25/25 040 Distal Lumen Status Blood return noted;Capped;Cap Change;Flushed 05/25/25399 Phlebitis Scale 0 05/25/25 040 Length masha (cm) 0 cm 05/24/25 180 Extremity Circumference (cm) 30 cm 05/24/25 180 Dressing Type Transparent with Chlorhexidine Gluconate gel 05/25/25399 Dressing Status Clean;Dry;Intact 05/25/25 040 Dressing Intervention New dressing 05/24/25 180 Dressing Change Due 05/31/25 05/24/251999 Urethral Catheter Double-lumen 16 Fr. (Active) Site Assessment Clean;Skin intact 05/24/251999 Collection Container Standard drainage bag 05/25/25399 Securement Method Securing device (Describe) 05/25/25 040 Reason for Continuing Urinary Catheterization Critically ill and need for accurate measurements of I&O (e.g., hourly monitoring) 05/25/25 040 Urinary Catheter Output (mL) 20 mL 05/25/25 0600 NUTRITION Diet Order: Dietary Orders (From admission, onward) Start Ordered 05/24/25 1327 Adult diet [facility]; General; Potassium 2 gm Restriction (50 mEq), Renal- Chronic Kidney Disease Diet effective now Question Answer Comment Location [facility] Diet Type (req) General General Diet Potassium 2 gm Restriction (50 mEq) General Diet Renal- Chronic Kidney Disease 05/24/25 1327 05/18/25 1235 Dietary nutrition supplements Two times daily (BID); [facility]; Standard Oral Supplement Continuous Comments: [place] or vanilla Question Answer Comment Frequency Two times daily (BID) Location [facility] Supplements Standard Oral Supplement 05/18/25 1234 LAB RESULTS Lab Results Component Value Date WBC 11.0 (H) 05/25/2025 RBC 3.30 (L) 05/25/2025 HGB 8.7 (L) 05/25/2025 HCT 29.2 (L) 05/25/2025 MCV 89.6 05/25/2025 MCHC 29.8 (L) 05/25/2025 RDW 19.7 (H) 05/25/2025 PLT 261 05/25/2025 MPV 10.7 05/25/2025 NRBC 0.6 05/25/2025 DIFF Lab Results Component Value Date LYMPHOPCT 12.2 05/25/2025 NEUTROABS 8.59 (H) 05/25/2025 LYMPHSABS 1.34 05/25/2025 MONOABS 0.72 05/25/2025 EOSABS 0.21 05/25/2025 BASOSABS 0.03 05/25/2025 IMMGRANABS 0.10 (H) 05/25/2025 RETIC No results found for: RETIC , RETICCTPCT Lab Results Component Value Date NA 140 05/25/2025 K 4.3 05/25/2025 CL 109 05/25/2025 CO2 17 (L) 05/25/2025 GLUCOSE 117 (H) 05/25/2025 BUN 61 (H) 05/25/2025 CREATININE 4.91 (H) 05/25/2025 CALCIUM 6.9 (L) 05/25/2025 PROT 5.8 (L) 05/25/2025 ALBUMIN 1.5 (L) 05/25/2025 BILITOT 0.2 05/25/2025 AST 81 (H) 05/25/2025 ALT 21 05/25/2025 URICACID 3.0 (L) 05/15/2025 PHOS 3.0 05/25/2025 MG 2.0 05/25/2025 ALKPHOS 235 (H) 05/25/2025 EGFR 8 (L) 05/25/2025 RADIOLOGY I have reviewed the relevant diagnostic imaging MICROBIOLOGY I have reviewed the relevant microbiology ASSESSMENT & PLAN Diagnosis (ACUTE/Chronic) Plan Neuro: Acute metabolic encephalopathy (improving) - due to Hypercalcemia -Pain control: Acetaminophen -Sedation/Anxiety management: NA - F/U RPR Cardiovascular/Hematological: Arterial hypotension (multifactorial) - Marginal but compensated on midodrine pre-HD Afib with RVR (rate-controlled) Cardiomyopathy HFrEF Chronic PAF (on Eliquis) Hyperlipidemia -Full Code - Confirmed -target MAP > 65 mmHg -F/U TTE -Continue metoprolol, midodrine, rosuvastatin -Hold digoxin and check Dig level - resume apixaban following perma cath placement Heme: Breast cancer with metastases to bone and brain -transfusion trigger Hb < 7.0 g/dl -VTE prophylaxis: mechanical, heparin IV until apixaban is resumed -Continue tamoxifen -Dr Joseph (Heme/Onc) is on Consult Pulmonary: COPD LEYDA Tracheal stenosis -Target SaO2 > 92% -Continue fluticasone -Albuterol nebs scheduled and PRN GI/Nutrition: Severe protein calorie malnutrition -Peptic Ulcer Prophylaxis: Pantoprazole -enteral feeds as possible -ondansetron PRN -Bicarb infusion for RTA until HD /Renal/Lytes: Hypercalcemia (controlled) -Improved after zoledronic acid on 05/16. -now mild asymptomatic Hypocalcemia Hyperkalemia (controlled) Acute metabolic acidosis(multifactorial) ZEN on CKD UTI -target UO > 0.5 cc/kg/h Adjusted IBW -replace electrolytes to WNL -IUBC for hourly UO while critically ill -Continue Lokelma -Trial Bumex - Perma cath placement Tuesday followed by initiation of scheduled elective HD - Nephrology input (Dr Zamarripa) reviewed and appreciated - Hypocalcemia replacement in collaboration with Nephrology Endocrine: DM2 -target BG 140-180 -SSI ICU protocol ID: -Ceftriaxone for UTI -f/u all cultures -assess antimicrobials, when present, daily for potential de-escalation. Social: Patient/family (Daughter-Maggie Donald- is listed as HCA1 with Abdulaziz Jeni HCA2) updated regarding patient status, response to therapy and plan of care. Skin/Wound: -Wound prevention positioning DISPOSITION: Continue ICU level of care 123 minutes of critical care time was spent in direct patient care at the bedside or in the immediate area with this patient. They are acutely ill with system failure. They are at high risk for decompensation. This time was spent assessing and managing the patient, interpreting labs and imaging, coordinating care with other medical providers, and gathering history and discussing management and prognosis with family. Charlotte Camara MD [1] acetaminophen, 1,000 mg, oral, q8h EMILY cefTRIAXone, 1 g, intravenous, q24h [Held by provider] digoxin, 125 mcg, oral, Once per day on Tuesday fluticasone propionate, 2 spray, Each Nostril, Daily midodrine, 10 mg, oral, TID AC multivitamin, 1 each, oral, Daily rosuvastatin, 10 mg, oral, Nightly sodium chloride, 10 mL, intravenous, BID sodium zirconium cyclosilicate, 10 g, oral, BID tamoxifen, 20 mg, oral, Daily thiamine, 100 mg, oral, Daily [2] heparin, 13 Units/kg/hr, Last Rate: Stopped (05/25/25613) sodium bicarbonate, 150 mEq, Last Rate: 75 mL/hr at 05/25/25599 [3] PRN medications: dextrose 50%, dextrose 50%, dextrose, dextrose, heparin OR heparin, metoprolol tartrate, naloxone, ondansetron (ZOFRAN-ODT) disintegrating tablet OR ondansetron, oxyCODONE, polyetheylene glycol, sodium chloride, Insert peripheral IV AND Maintain IV access AND Saline lock IV AND sodium chloride AND sodium chloride [4] heparin, 13 Units/kg/hr, Last Rate: Stopped (05/25/25613) sodium bicarbonate, 150 mEq, Last Rate: 75 mL/hr at 05/25/25599 [5] PRN medications: dextrose 50%, dextrose 50%, dextrose, dextrose, heparin OR heparin, metoprolol tartrate, naloxone, ondansetron (ZOFRAN-ODT) disintegrating tablet OR ondansetron, oxyCODONE, polyetheylene glycol, sodium chloride, Insert peripheral IV AND Maintain IV access AND Saline lock IV AND sodium chloride AND sodium chloride * Prasanna Mon RN - 05/24/2025 4:24 PM EDT Goals: Identify possible barriers to meeting goals/advancing plan of care: Transferred to ICU/permacath placement/Dialysis/Rapid Fib/RVR Stability of the patient: Unstable - High likelihood or risk of patient condition declining or worsening End of Shift Summary: Patient's HR ranged from 90's to 150's, and BP's were as low as 80's/50's. Patient was hypoglycemic overnight with blood glucose less than 10. Patient was supposed to have permacath placed today, followed by dialysis, but patient was too unstable. Patient transferred to ICU for further monitoring. * Cris Samayoa RN - 05/24/2025 1:16 PM EDT CM 05/24 Tx to ICU DAVON: TBD CM 05/24 HD tomm/permacath CM 05/22 DAVON: 05/26 Barrier: Perma cath plmt 05/24 then start HD, HR 120, BP 83/63, 2.5 L NC, NPO, B/Cr 53/4.52, WBC 11.9, Full code, GOC 05/25, bone biops/PT eval pending Plan: Home with Baylee * Desmond Molina MD - 05/24/2025 12:02 PM EDT Images from the original note were not included. GAUTAM PROGRESS NOTE Date: 05/24/2025 Author: Desmond Molina MD Patient ID: Chayito Klein is a 79 y.o. female : 1945 MR#: [id number] SUBJECTIVE CC: f/u bone mets, anemia, encephalopathy. ZEN Overnight events noted. Patient had marked hypoglycemia and HEAD SCORER was called. Patient was started on D10. Continues to have hypotensive episodes and tachyarrhythmia with heart rate 120s at times. Met with patient's daughter, Maggie at bedside this morning. Explained concerns of worsening renal function and risk of further complications including hemodynamic instability, respiratory failure, significant arrhythmias and even . At this time she wants to proceed with hemodialysis which is being arranged by nephrology team. Readdressed CODE STATUS and explained limitations, pian/fractures (pt has bone mets) and probably futility of aggressive measures but she wants to keep her full code and will go day by day. She said that she will talk to her brother. She noted that her mother does not have pain or SOB presently but her appetite was poor yesterday. ADDENDUM: I did inform Maggie this morning and pathology report was back and it was showing breast cancer cells in bone marrow which indicates stage 4 cancer/metastasis. ROS: Limited historian/encephalopathic Pt denies pain Denies sob No nausea OBJECTIVE Vitals: Vitals: 05/24/25 0933 BP: (!) 122/92 Pulse: 108 Resp: Temp: SpO2: Physical Exam: General: Ill appearing. Somnolent but opens eyes and smiled few times. Does not appear to be in pain. Psych: mood stable. No agitation. Oriented to daughter. CVS: S1 S2 no mrg Ext: no pitting pedal edema. PUL: Mild basilar crackles GI: BS present. Mild distention. No guarding. LAB RESULTS HEMATOLOGY Lab Results Component Value Date WBC 11.9 (H) 05/24/2025 WBC 11.9 (H) 05/24/2025 HGB 9.1 (L) 05/24/2025 HGB 9.1 (L) 05/24/2025 HCT 31.2 (L) 05/24/2025 HCT 31.2 (L) 05/24/2025 MCV 89.7 05/24/2025 MCV 89.7 05/24/2025 PLT 260 05/24/2025 PLT 260 05/24/2025 CHEMISTRY Lab Results Component Value Date GLUCOSE 148 (H) 05/24/2025 NA 140 05/24/2025 K 5.8 (H) 05/24/2025 CO2 15 (L) 05/24/2025 CL 116 (H) 05/24/2025 BUN 53 (H) 05/24/2025 CREATININE 4.52 (H) 05/24/2025 EGFR 9 (L) 05/24/2025 CALCIUM 7.0 (L) 05/24/2025 MG 2.0 05/24/2025 PHOS 3.0 05/24/2025 ANIONGAP 9 05/24/2025 ASSESSMENT & PLAN 79-year-old female with PMH of breast cancer diagnosed in 2020 status postmastectomy currently on letrozole, osteoarthritis, HTN, glaucoma, dyslipidemia, diabetes, LEYDA, CAD, cardiomyopathy, paroxysmal A-fib, COPD among others who presented on 05/15/2025 with confusion, generalized weakness and poor appetite, weight loss. Patient seen by oncology team and imaging studies demonstrated findings concerning for bone metastases as well as multiple myeloma. She was found to have hypercalcemia with calcium level 12.4. -ZEN/ATN. Multifactorial and hypotension likely contributing. Pt is decompensating with hypotensive episodes, tachycardia, hyperkalemia, metabolic acidosis and congestion/fluid retention. Renal team following and arranging Permcath and dialysis sometime today. At high risk of morbidity/mortality and this was discussed with pt's HCP, Maggie. See above. Presently family wants to continue aggressive treatment including CPR/intiubation if needed. Encouraged to speak to oncology team and asked Dr. Joseph to speak with family as well. ADDENDUM: 1:35pm Discussed with renal team, Dr. Davis and no plans for permach/dialysis today. Because of hemodynamic instability (episodes of tachycardia and hypotension) he asked if pt can be transferred to ICU and arrange dialysis catheter tomorrow and dialysis in ICU. Meanwhile suggested to change IVFs to bicarb (D5 with 150meq bicarb) at 75cc/hr and Lokema 10mg BID. I spoke to Dr. Ayala and he will take pt to ICU for further monitoring. I updated pt's daughter, Maggie about plan to transfer to ICU for further monitoring and treatment and she was okay with this. - Hyperkalemia. D/t worsening renal function. S/p Lokema. Continue Tele. - Hypoglycemia. Not on DM meds. Likely from poor oral intake and poor live glycogen stores On D10 at 50cc. - Breast cancer. Outpatient CT scan demonstrated multiple Lucent lesions in right humeral shaft, rib, vertebrae suspicious for multiple myeloma versus metastatic disease. Bone scan revealed multipe bone mets. Seen by Dr. Joseph and recommended bone biopsy. S/p bone biopsy on 05/20. Path revealed breast cancer as primary. MM w/u was negative. Spoke to Dr. Joseph and recommended to stop Letrozol and start Tamoxifen 20mg daily. He spoke to Maggie and family still wants full treatment and not change code status. - Hypotension. GDMT discontinued as not tolerating On Midodrine. S/p IV albumin. BP still keeps dropping down. - Atrial fibrillation with RVR. Digoxin 125 on hold dt/ ZEN 2.5 mg BID Eliquis on hold and bridge with IV heparin drip while monitoring antiXa closely. Possible permacath today. Hold PO Metoprolol. IV metoprolol Q 6hrs. - Chronic systolic and diastolic heart failure. TTE attempted but patient could not tolerate. LEAD ARCHITECT apparently she was not compliant with Entresto and developed hypotension here. GDMT limited due to hypotension at this time and will be discontinued. -Hypercalcemia. Likely secondary to malignancy, probably breast. PTH suppressed at 9.7. PTH related peptide pending. Status post zoledronic acid. Calcium normalized. SPEP with no M spike. [place]/lambda ratio normal. - Acute metabolic encephalopathy. Multifactorial. Hypercalcemia corrected. CT brain with no acute abnormality. Brain MRI with no acute intracranial abnormality, several small calvarial metastatic lesions are suspected. MS is fluctuating and somnolent. - Hypokalemia. Now hyperkalemia. - Hypernatremia. - Severe body pain. Resolved. Likely from bone mets. Comfortable with just tylenol TID and avoid opioids as much as possible. -Malnutrition, moderate. Likely related to underlying cancer DVT prophylaxis: Heparin CODE STATUS: Full code confirmed by HCP/daughter again today Condition: Very poor and at high risk of morbidity/mortality Patient's daughter, Maggie Donald, >60 min spent on E/M pt, counselling Maggie about worsening ZEN, possible risks, prognosis, treatment options, code status, ordering tests/treatment and documenting findings. * Vanessa Colón PT - 05/24/2025 10:52 AM EDT Therapy session was attempted for Chayito Klein by Vanessa Colón PT on 05/24/2025. The patient was unable to be seen for the following reason(s): Medically unstable/on Medical hold and Other: per MD will cancel PT eval at this time Plan for return visit: Other: please re order if necessary * Jacobo Davis MD - 05/24/2025 8:33 AM EDT Images from the original note were not included. Progress Note CHIEF COMPLAINT F/u regarding ZEN SUBJECTIVE Patient seen and examined Now in afib RVR- discussed with IR- unable to place perm Cath MEDICAL HISTORY Medical History[1] MEDICATIONS MEDSSCHEDULED[2] MEDSPRN[3] MEDSCONTINUOUS[4] OBJECTIVE Vital signs in last 24 hours: Visit Vitals BP 83/63 (BP Location: Upper, Patient Position: Lying) Pulse (!) 120 Temp 36.1 ??C (96.9 ??F) (Temporal) Resp 18 Intake/Output last 24 hours: Intake/Output Summary (Last 24 hours) at 05/24/2025 0833 Last data filed at 05/24/2025 0344 Gross per 24 hour Intake -- Output 500 ml Net -500 ml Weights: Admission Weight: Weight: 49.9 kg (110 lb) Wt Readings from Last 3 Encounters: 05/23/25 62.2 kg (137 lb 1.6 oz) 01/30/25 66.2 kg (146 lb) 07/24/24 68 kg (150 lb) Physical Exam: General: No acute distress HEENT: Normocephalic, atraumatic, anicteric Cardiovascular: S1 S2 normal Respiratory: unlabored Gl: soft non-distended Extremities: No cyanosis Neurological: Alert Integumentary: no rash Psych: Calm, cooperative LABS Results from last 7 days Lab Units 05/24/25 0237 05/23/25 0549 05/22/25 0552 WBC AUTO K/mcL 11.9* 11.9* 11.6* 12.6* HEMOGLOBIN g/dL 9.1* 9.1* 10.1* 9.4* HEMATOCRIT % 31.2* 31.2* 35.3 33.3* MCV FL 89.7 89.7 92.9 94.6 PLATELETS K/mcL 260 260 249 269 Results from last 7 days Lab Units 05/24/25 0237 05/24/25 0025 05/23/25 1554 05/23/25 0549 CREATININE mg/dL 4.52* 4.36* -- 4.01* BUN mg/dL 53* 54* -- 49* SODIUM mmol/L 140 138 -- 141 POTASSIUM mmol/L 5.8* 6.0* 5.3 5.8* CHLORIDE mmol/L 116* 115* -- 116* CO2 mmol/L 15* 15* -- 18* Phosphorus Date Value Ref Range Status 05/24/2025 3.0 2.5 - 4.5 mg/dL Final PTH Date Value Ref Range Status 05/16/2025 9.7 (L) 18.5 - 88.0 pcg/mL Final No results found for: IRON , TIBC , FERRITIN No results found for: COLORUA , CLARITYUA , SPECGRAVUA , PHUA , PROTUA , GLUCOSEUA , KETONESUA , BILIRUBINUA , BLOODUA , UROBILINOGUA , NITRITEUA IMPRESSION and PLAN Severe acute kidney injury in the setting of hypotension/likely acute tubular injury at this juncture Doubt contrast nephropathy as the timeline does not fit Urine sodium is elevated with hide fractional excretion of sodium consistent with acute tubular injury Clinically patient looks prerenal multifactorial reasons including hypocalcemia- adequately hydrated Baseline creatinine is 0.7-0.8 Myeloma screen was negative Breast CA with likely metastatic disease Hypercalcemia-likely due to malignancy PTH which is suppressed Myeloma screen was negative and this could likely be due to breast CA with mets Acute metabolic encephalopathy-resolved Hyperkalemia Mild metabolic acidosis Recommend Continue to hold gabapentin Agree with holding apixaban. Last dose was 05/22 Agree with IV antibiotics Agree with holding all BP medication Hold Entresto and spironolactone Cont IV fluids with bicarb - Lokelma 10gm bid Bone biopsy results are pending Follow-up renal function in a.m. Watch calcium level Follow-up workup for hypercalcemia GFR is dropped from 72 to 11 and has not plateaued. Hyperkalemic and mildly acidotic at the presenttime Looks like she is heading towards dialysis - unable to place permcath due to instablility of RVR , transfer to icu for stabilization and likely placement of temp dialysis access tomorrow based on reassessment Jacobo Davis MD [1] History reviewed. No pertinent past medical history. [2] acetaminophen, 1,000 mg, oral, q8h EMILY [Held by provider] digoxin, 125 mcg, oral, Once per day on Tuesday fluticasone propionate, 2 spray, Each Nostril, Daily letrozole, 2.5 mg, oral, Daily metoprolol tartrate, 50 mg, oral, q6h midodrine, 10 mg, oral, TID AC multivitamin, 1 each, oral, Daily rosuvastatin, 10 mg, oral, Nightly sodium chloride, 10 mL, intravenous, BID thiamine, 100 mg, oral, Daily [3] PRN medications: dextrose 50%, dextrose 50%, dextrose, dextrose, heparin OR heparin, metoprolol tartrate, naloxone, ondansetron (ZOFRAN-ODT) disintegrating tablet OR ondansetron, oxyCODONE, polyetheylene glycol, prochlorperazine OR prochlorperazine OR prochlorperazine, Insert per ipheral IV AND Maintain IV access AND Saline lock IV AND sodium chloride AND sodiumchloride [4] dextrose, 50 mL/hr, Last Rate: 50 mL/hr (05/24/25 0531) heparin, 13 Units/kg/hr, Last Rate: Stopped (05/24/25 7372) * Ferannda Blas RN - 05/24/2025 5:44 AM EDT Pt found on q 2 hr finger sticks with sugar less than 10. Repeat sugar after amp dextrose was 18. Rapid response was immediately called on initial finger stick. Pt also had a low BP. Pt was lethargicbut somewhat responsive. After sugar was corrected pt became alert and smiling, however, quickly became lethargic. Pt changed to q 1 hr finger sticks and placed on a D10 infusion at 50/hr. See code documentation for additional details. Fernanda Blas RN * ANY French - 05/24/2025 5:33 AM EDT Rapid response called overhead for severe hypoglycemia BG was 10 - amp of D50 given and recheck BG was 18 Additional amp given and BG was 400 Glucagon given x 1mg and patient was started on D10 @ 50/hr Recheck BG was 174 Blood pressure ranging from 80-110s/40-70s Heart rate in the 90-140s Her metoprolol 50 mg was held a few hours ago due to a blood pressure of 80/40s Q1h POC and hypoglycemic management PermAcath placement for dialysis later today Overall prognosis appears to be poor, FULL CODE, continue to monitor closely on telemetry Care provided by Tyler Funes overnight supervising physician who was also at bedside * Fernanda Blas RN - 05/24/2025 12:21 AM EDT Pt found to be lethargic during the shift. Took BGL, sugar was 21. ANY Addison notified and an amp & 1/2 were given to correct sugar. Fernanda Blas RN * Vanessa Colón PT - 05/23/2025 12:52 PM EDT Therapy session was attempted for Chayito Klein by Vanessa Colón PT on 05/23/2025. The patient was unable to be seen for the following reason(s): Refused treatment and Other: wants to wait for her dtr to come in which will be tomorrow because she helps her out a lot at home Plan for return visit: Tomorrow * Desmond Molina MD - 05/23/2025 11:42 AM EDT Images from the original note were not included. GAUT[facility] PROGRESS NOTE Date: 05/23/2025 Author: Desmond Molina MD Patient ID: Chayito Klein is a 79 y.o. female : 1945 MR#: [id number] SUBJECTIVE CC: f/u bone mets, anemia, encephalopathy. ZEN Pt is smiling and denies pain or SOB. Daughter, Maggie at bedside and translates for the pt which she prefers. Discussed about increase in creatinine which is concerning and that we have not seen stabilization or improvement. Discussed potential need for dialysis. Glucose low this morning and treated with Dextrose, rechecked and normal. Appetites remains not great. ROS: No fever No chest pain Denies sob No nausea No abd pain OBJECTIVE Vitals: Vitals: 05/23/25 0829 BP: 99/69 Pulse: 73 Resp: 18 Temp: 36.3 ??C (97.3 ??F) SpO2: (!) 84% Physical Exam: General: Awak, alert. Smiling Conically ill appearing. Psych: mood stable. Daughter at bedside and pt appears happy. CVS: S1 S2 no mrg Ext: no pitting edema. PUL: No audible wheezes or crackles or tachypnea. Although she now has decreased Air entry at bases. GI: BS present. Mild distention. No guarding. Skin: no cyanosis LAB RESULTS HEMATOLOGY Lab Results Component Value Date WBC 11.6 (H) 05/23/2025 HGB 10.1 (L) 05/23/2025 HCT 35.3 05/23/2025 MCV 92.9 05/23/2025 PLT 249 05/23/2025 CHEMISTRY Lab Results Component Value Date GLUCOSE 112 (H) 05/23/2025 NA 141 05/23/2025 K 5.8 (H) 05/23/2025 CO2 18 (L) 05/23/2025 CL 116 (H) 05/23/2025 BUN 49 (H) 05/23/2025 CREATININE 4.01 (H) 05/23/2025 EGFR 11 (L) 05/23/2025 CALCIUM 7.5 (L) 05/23/2025 MG 2.1 05/20/2025 ANIONGAP 7 05/23/2025 ASSESSMENT & PLAN 79-year-old female with PMH of breast cancer diagnosed in 2020 status postmastectomy currently on letrozole, osteoarthritis, HTN, glaucoma, dyslipidemia, diabetes, LEYDA, CAD, cardiomyopathy, paroxysmal A-fib, COPD among others who presented on 05/15/2025 with confusion, generalized weakness and poor appetite, weight loss. Patient seen by oncology team and imaging studies demonstrated findings concerning for bone metastases as well as multiple myeloma. She was found to have hypercalcemia with calcium level 12.4. -ZEN/ATN. Multifactorial and hypotension likely contributing. Renal consult appreciated. Cr getting worse and she has some metabolic acidosis, hyperkalemia today. CXR also with new pulmonary congestion/small pleural effusions. Holding apixaban as may need dilyaisis. Bladder scan only ~ 230cc this morning. - Hyperkalemia. S/p 10g Lokema. Continue Tele. - Acute metabolic encephalopathy. Multifactorial. Hypercalcemia corrected. CT brain with no acute abnormality. Brain MRI with no acute intracranial abnormality, several small calvarial metastatic lesions are suspected. MS improved. Avoid oxycodone/sedatives. - Hypotension. GDMT discontinued as not tolerating On Midodrine Off IVFs as did not respond and may develop fluid overload. -Hypercalcemia. Likely secondary to malignancy, probably breast. PTH suppressed at 9.7. PTH related peptide pending. Status post zoledronic acid. Calcium normalized. SPEP with no M spike. [place]/lambda ratio normal. - Breast cancer. Outpatient CT scan demonstrated multiple Lucent lesions in right humeral shaft, rib, vertebrae suspicious for multiple myeloma versus metastatic disease. Bone scan revealed multipe bone mets. Seen by Dr. Joseph and recommended bone biopsy. S/p bone biopsy on 05/20. Path pending. - Hypokalemia. Replaced. - Hypernatremia. Better. - Severe body pain. Resolved. Likely from bone mets. Comfortable with just tylenol TID and avoid opioids as much as possible. - Atrial fibrillation with RVR. Heart rate improved. Digoxin 125 on hold dt/ ZEN 2.5 mg BID Eliquis will be placed on hold and bridge with IV heparin drip while monitoring antiXa closely. Possible permacath tomorrow. Hold Heparin drip in am. - Chronic systolic and diastolic heart failure. TTE attempted but patient could not tolerate. LEAD ARCHITECT apparently she was not compliant with Entresto and developed hypotension here. GDMT limited due to hypotension at this time and will be discontinued. -Malnutrition, moderate. Likely related to underlying cancer DVT prophylaxis: Heparin CODE STATUS: Full code confirmed by HCP/daughter. Patient's daughter, Maggie Donald, >60 min spent on E/M pt, counselling family about findings, worsening ZEN, treatment plan, discussing with renal team, ordering tests/treatment, reviewing imaging study and documenting findings. * Johann Zamarripa MD - 05/23/2025 11:28 AM EDT Images from the original note were not included. Progress Note CHIEF COMPLAINT F/u regarding ZEN SUBJECTIVE Patient seen and examined More awake and comfortable She had about 6 L in Exact output unknown MEDICAL HISTORY Medical History[1] MEDICATIONS MEDSSCHEDULED[2] MEDSPRN[3] MEDSCONTINUOUS[4] OBJECTIVE Vital signs in last 24 hours: Visit Vitals BP 99/69 (BP Location: Lower) Pulse 73 Temp 36.3 ??C (97.3 ??F) (Temporal) Resp 18 Intake/Output last 24 hours: No intake or output data in the 24 hours ending 05/23/25 1128 Weights: Admission Weight: Weight: 49.9 kg (110 lb) Wt Readings from Last 3 Encounters: 05/15/25 48.6 kg (107 lb 3.2 oz) 01/30/25 66.2 kg (146 lb) 07/24/24 68 kg (150 lb) Physical Exam: General: No acute distress HEENT: Normocephalic, atraumatic, anicteric Cardiovascular: S1 S2 normal Respiratory: unlabored Gl: soft non-distended Extremities: No cyanosis Neurological: Alert Integumentary: no rash Psych: Calm, cooperative LABS Results from last 7 days Lab Units 05/23/25 0549 05/22/25 0552 05/21/25 0613 WBC AUTO K/mcL 11.6* 12.6* 14.9* HEMOGLOBIN g/dL 10.1* 9.4* 9.0* HEMATOCRIT % 35.3 33.3* 32.1* MCV FL 92.9 94.6 93.6 PLATELETS K/mcL 249 269 268 Results from last 7 days Lab Units 05/23/25 0549 05/22/25 0552 05/21/25 0613 CREATININE mg/dL 4.01* 3.32* 2.79* BUN mg/dL 49* 38* 31* SODIUM mmol/L 141 142 144 POTASSIUM mmol/L 5.8* 5.0 4.7 CHLORIDE mmol/L 116* 115* 117* CO2 mmol/L 18* 20* 20* PTH Date Value Ref Range Status 05/16/2025 9.7 (L) 18.5 - 88.0 pcg/mL Final No results found for: IRON , TIBC , FERRITIN No results found for: COLORUA , CLARITYUA , SPECGRAVUA , PHUA , PROTUA , GLUCOSEUA , KETONESUA , BILIRUBINUA , BLOODUA , UROBILINOGUA , NITRITEUA IMPRESSION and PLAN Severe acute kidney injury in the setting of hypotension/likely acute tubular injury at this juncture Doubt contrast nephropathy as the timeline does not fit Urine sodium is elevated with hide fractional excretion of sodium consistent with acute tubular injury Clinically patient looks prerenal multifactorial reasons including hypocalcemia- adequately hydrated Baseline creatinine is 0.7-0.8 Myeloma screen was negative Breast CA with likely metastatic disease Hypercalcemia-likely due to with PTH which is suppressed likely due to malignancy Myeloma screen was negative and this could likely be due to breast CA with mets Acute metabolic encephalopathy-resolved Hyperkalemia Mild metabolic acidosis Continue to hold gabapentin Agree with holding apixaban. Last dose was 05/22 Agree with IV antibiotics Agree with holding all BP medication Hold Entresto and spironolactone Will give 1 L of IV fluids with bicarb Bone biopsy results are pending Lokelma 10 g x 1 dose Follow-up renal function in a.m. Watch calcium level Follow-up workup for hypercalcemia Will check kappa lambda ratio in the serum GFR is dropped from 72 to 11 and has not plateaued. Hyperkalemic and mildly acidotic at the presenttime Looks like she is heading towards dialysis and I will arrange for a permacath for the patient and dialysis in a.m. Discussed with the healthcare proxy who is the daughter at the bedside and the patient in detail. They agree with a trial of dialysis Orders placed for n.p.o. Patient daughter signed consent for dialysis Total time spent for coordination of care-30 minutes Cannot be completed cannot be -Avoid nephrotoxins, such as NSAIDs, iodinated contrast, and phosphate enema, as able. -Dose all mediations for appropriate eGFR Thank you Johann Zamarripa MD [1] History reviewed. No pertinent past medical history. [2] acetaminophen, 1,000 mg, oral, q8h EMILY [Held by provider] apixaban, 2.5 mg, oral, BID [Held by provider] digoxin, 125 mcg, oral, Once per day on Tuesday fluticasone propionate, 2 spray, Each Nostril, Daily letrozole, 2.5 mg, oral, Daily metoprolol tartrate, 50 mg, oral, q6h midodrine, 10 mg, oral, TID AC multivitamin, 1 each, oral, Daily rosuvastatin, 10 mg, oral, Nightly sodium chloride, 10 mL, intravenous, BID thiamine, 100 mg, oral, Daily [3] PRN medications: metoprolol tartrate, naloxone, ondansetron (ZOFRAN-ODT) disintegrating tablet OR ondansetron, oxyCODONE, polyetheylene glycol, prochlorperazine OR prochlorperazine ORprochlorperazine, Insert peripheral IV AND Maintain IV access AND Saline lock IV AND sodium chloride AND sodium chloride [4] * Vanessa Colón PT - 05/23/2025 11:25 AM EDT Therapy session was attempted for Chayito Klein by Vanessa Colón, PT on 05/23/2025. The patient was unable to be seen for the following reason(s): With other team members and Other: in with MD Plan for return visit: Later today for additional attempt * Georgette Huggins RN - 05/22/2025 2:42 PM EDT DAVON: 05/23 Barrier: hypotensive, bone biops/PT eval pending Pending Plan: Home with Baylee * Desmond Molina MD - 05/22/2025 2:37 PM EDT Images from the original note were not included. [facility] PROGRESS NOTE Date: 05/22/2025 Author: Desmond Molina MD Patient ID: Chayito Klein is a 79 y.o. female : 1945 MR#: [id number] SUBJECTIVE CC:f/u bone mets, anemia, encephalopathy Pt wants to have BM. Informed nurse and noted that she already had large BM and was declining bed pen. No more hypotension. Cr still trended up. ROS: No fever No chest pain No sob No N/V OBJECTIVE Vitals: Vitals: 05/22/25 1213 BP: (!) 129/94 Pulse: 87 Resp: 18 Temp: 36.7 ??C (98.1 ??F) SpO2: 95% Physical Exam: General: Awak, alert. Conically ill appearing. Psych: mood stable. Sl anxious. Daughter not at bedside presently. CVS: S1 S2 no mrg Ext: no pitting edema. PUL: No audible wheezes or crackles. No overt tachypnea. GI: BS present. Mild distention. No guarding. Skin: no cyanosis LAB RESULTS HEMATOLOGY Lab Results Component Value Date WBC 12.6 (H) 05/22/2025 HGB 9.4 (L) 05/22/2025 HCT 33.3 (L) 05/22/2025 MCV 94.6 05/22/2025 PLT 269 05/22/2025 CHEMISTRY Lab Results Component Value Date GLUCOSE 69 (L) 05/22/2025 NA 142 05/22/2025 K 5.0 05/22/2025 CO2 20 (L) 05/22/2025 CL 115 (H) 05/22/2025 BUN 38 (H) 05/22/2025 CREATININE 3.32 (H) 05/22/2025 EGFR 14 (L) 05/22/2025 CALCIUM 7.4 (L) 05/22/2025 MG 2.1 05/20/2025 ANIONGAP 7 05/22/2025 ASSESSMENT & PLAN 79-year-old female with PMH of breast cancer diagnosed in 2020 status postmastectomy currently on letrozole, osteoarthritis, HTN, glaucoma, dyslipidemia, diabetes, LEYDA, CAD, cardiomyopathy, paroxysmal A-fib, COPD among others who presented on 05/15/2025 with confusion, generalized weakness and poor appetite, weight loss. Patient seen by oncology team and imaging studies demonstrated findings concerning for bone metastases as well as multiple myeloma. She was found to have hypercalcemia with calcium level 12.4. - Acute metabolic encephalopathy. Multifactorial. Hypercalcemia corrected. CT brain with no acute abnormality. Brain MRI with no acute intracranial abnormality, several small calvarial metastatic lesions are suspected. MS improved. Avoid oxycodone/sedatives. -ZEN. Probable ATN. Hypotension likely contributing. Renal consult appreciated. Cr 3.2 and has not plateaud yet. On IVFs. No hypoxia/crackles. - Hypotension. GDMT discontinued as not tolerating On Midodrine IVFs -Hypercalcemia. Likely secondary to malignancy, probably breast. PTH suppressed at 9.7. PTH related peptide pending. Status post zoledronic acid. Calcium normalized. SPEP with no M spike. [place]/lambda ratio normal. - Breast cancer. Outpatient CT scan demonstrated multiple Lucent lesions in right humeral shaft, rib, vertebrae suspicious for multiple myeloma versus metastatic disease. Bone scan revealed multipe bone mets. Seen by Dr. Joseph and recommended bone biopsy. S/p bone biopsy on 05/20. Path pending. - Hypokalemia. Replaced. - Hypernatremia. Better. - Severe body pain. Likely from bone mets. Comfortable with just tylenol TID and avoid opioids as much as possible. - Atrial fibrillation with RVR. Heart rate improved. Digoxin 125 on hold dt/ ZEN On 2.5 mg twice daily Eliquis - Chronic systolic and diastolic heart failure. TTE attempted but patient could not tolerate. LEAD ARCHITECT apparently she was not compliant with Entresto and developed hypotension here. GDMT limited due to hypotension at this time and will be discontinued. -Malnutrition. Likely related to underlying cancer DVT prophylaxis: Heparin CODE STATUS: Full code confirmed by HCP/daughter. Patient's daughter, Maggie Donald, Disposition: Pending improvement in cr, before transitioning to STR which was recommended by PT. * Johann Zamarripa MD - 05/22/2025 10:37 AM EDT Images from the original note were not included. Progress Note CHIEF COMPLAINT F/u regarding ZEN SUBJECTIVE Patient seen and examined Patient emaciated not able to give good history MEDICAL HISTORY Medical History[1] MEDICATIONS MEDSSCHEDULED[2] MEDSPRN[3] MEDSCONTINUOUS[4] OBJECTIVE Vital signs in last 24 hours: Visit Vitals BP 120/64 (BP Location: Right arm, Patient Position: Lying) Pulse 84 Temp 36.6 ??C (97.9 ??F) (Temporal) Resp 16 Intake/Output last 24 hours: Intake/Output Summary (Last 24 hours) at 05/22/2025 1038 Last data filed at 05/22/2025 0600 Gross per 24 hour Intake 1113.88 ml Output -- Net 1113.88 ml Weights: Admission Weight: Weight: 49.9 kg (110 lb) Wt Readings from Last 3 Encounters: 05/15/25 48.6 kg (107 lb 3.2 oz) 01/30/25 66.2 kg (146 lb) 07/24/24 68 kg (150 lb) Physical Exam: General: No acute distress HEENT: Normocephalic, atraumatic, anicteric Cardiovascular: S1 S2 normal Respiratory: unlabored Gl: soft non-distended Extremities: No cyanosis Neurological: Alert Integumentary: no rash Psych: Calm, cooperative LABS Results from last 7 days Lab Units 05/22/25 0552 05/21/25 0613 05/20/25 0536 WBC AUTO K/mcL 12.6* 14.9* 12.1* 12.1* HEMOGLOBIN g/dL 9.4* 9.0* 10.0* 10.0* HEMATOCRIT % 33.3* 32.1* 36.5 36.5 MCV FL 94.6 93.6 96.3 96.3 PLATELETS K/mcL 269 268 209 209 Results from last 7 days Lab Units 05/22/25 0552 05/21/25 0613 05/20/25 0746 CREATININE mg/dL 3.32* 2.79* 2.29* BUN mg/dL 38* 31* 22 SODIUM mmol/L 142 144 146* POTASSIUM mmol/L 5.0 4.7 4.2 CHLORIDE mmol/L 115* 117* 119* CO2 mmol/L 20* 20* 20* PTH Date Value Ref Range Status 05/16/2025 9.7 (L) 18.5 - 88.0 pcg/mL Final No results found for: IRON , TIBC , FERRITIN No results found for: COLORUA , CLARITYUA , SPECGRAVUA , PHUA , PROTUA , GLUCOSEUA , KETONESUA , BILIRUBINUA , BLOODUA , UROBILINOGUA , NITRITEUA IMPRESSION and PLAN Severe acute kidney injury in the setting of hypotension-creatinine plateauing off continue to holdgabapentin Doubt contrast nephropathy as the timeline does not fit Urine sodium is elevated with hide fractional excretion of sodium consistent with acute tubular injury Clinically patient looks prerenal multifactorial reasons including hypocalcemia Baseline creatinine is 0.7-0.8 Breast CA with likely metastatic disease Hypercalcemia-likely due to with PTH which is suppressed likely due to malignancy Myeloma screen was negative and this could likely be due to breast CA with mets Acute metabolic and cephalopathy Mild hyponatremia At this juncture I recommend discontinuation of gabapentin Agree with IV antibiotics Agree with holding all BP medication Hold Entresto and spironolactone Continue IV fluids as ordered. IV LR was changed as LR has potassium in it Bone biopsy results are pending Follow-up renal function in a.m. Watch calcium level Follow-up workup for hypercalcemia No immediate need for renal replacement therapy but will continue to follow -Avoid nephrotoxins, such as NSAIDs, iodinated contrast, and phosphate enema, as able. -Dose all mediations for appropriate eGFR Thank you Johann Zamarripa MD [1] History reviewed. No pertinent past medical history. [2] acetaminophen, 1,000 mg, oral, q8h EMILY apixaban, 2.5 mg, oral, BID [Held by provider] digoxin, 125 mcg, oral, Once per day on Tuesday fluticasone propionate, 2 spray, Each Nostril, Daily [Held by provider] gabapentin, 100 mg, oral, Nightly letrozole, 2.5 mg, oral, Daily metoprolol tartrate, 5 mg, intravenous, q6h [Held by provider] metoprolol tartrate, 50 mg, oral, q6h midodrine, 10 mg, oral, TID AC multivitamin, 1 each, oral, Daily rosuvastatin, 10 mg, oral, Nightly [Held by provider] sacubitriL-valsartan, 1 tablet, oral, BID sodium chloride, 10 mL, intravenous, BID [Held by provider] spironolactone, 12.5 mg, oral, Daily [Held by provider] tamsulosin, 0.4 mg, oral, Daily thiamine, 100 mg, oral, Daily [3] PRN medications: metoprolol tartrate, naloxone, ondansetron (ZOFRAN-ODT) disintegrating tablet OR ondansetron, oxyCODONE, polyetheylene glycol, prochlorperazine OR prochlorperazine ORprochlorperazine, Insert peripheral IV AND Maintain IV access AND Saline lock IV AND sodium chloride AND sodium chloride [4] sodium chloride, 75 mL/hr, Last Rate: 75 mL/hr (05/21/252234) * Madeline Ortiz RN - 05/22/2025 4:24 AM EDT Goals: Identify possible barriers to meeting goals/advancing plan of care: Stability of the patient: Moderately Stable - Low risk of patient condition declining or worsening End of Shift Summary: * Milena Wayne PT - 05/21/2025 3:45 PM EDT [facility] Physical Therapy Evaluation & Treatment PT Discharge Recommendations: residential facility placement Staff Recommendations for safe patient handling: assist x 2 Modified Concho Scale Score: 5=Severe disability. Requires constant nursing care and attention, bedridden. AM-PAC 6 Clicks Scoring Form: Unable: 1 A Lot: 2 A Little: 3 None: 4 How much difficulty does the patient currently have? Turning over in bed (including adjustment of bedclothes, sheets, and blankets) [] [x] [] [] Sitting down on and standing up from a chair with arms (wheelchair, bedside commode etc [] [x] [] [] Moving from lying on back to sitting on the side of the bed [] [x] [] [] How much help from another person does the patient currently need? Moving to and from a bed to a chair ( including a wheelchair) [x] [] [] [] To walk in hospital room [x] [] [] [] Climbing 3-5 steps with a railing [x] [] [] [] Score: score indicates the pt would benefit from STR after acute discharge Precautions Medical Precautions: Fall Risk Safety Interventions: Telesitter, Side rails up x1, Bed alarm, Call lynch within reach RUE Weight Bearing Status: Full LUE Weight Bearing Status: Full RLE Weight Bearing Status: Full LLE Weight Bearing Status: Full Fall prevention education provided including use of call light in hospital, use of appropriate assistive device, safe mobility techniques, and safety measures at home. PT Received On: 05/21/25 PT Start Time: 1545 PT Stop Time: 1645 PT Time Calculation (min): 60 min General Family/Caregiver Present: Yes Precautions Medical Precautions: Fall Risk Safety Interventions: Telesitter, Side rails up x1, Bed alarm, Call lynch within reach RUE Weight Bearing Status: Full LUE Weight Bearing Status: Full RLE Weight Bearing Status: Full LLE Weight Bearing Status: Full Cognition Orientation Level: Disoriented to place, Disoriented to time, Disoriented to situation Following Commands: Follows multistep commands with increased time Hearing: Intact Vision: Intact Speech: Intact Integumentary: small wounds on L lower leg History of Present Illness: Patient is a 79 y.o. female admitted to [facility] on 05/15/2025. Problem List[1] Medical History[2] Surgical History[3] Social History Home Living Environment: Home Living Type of Home: Apartment Lives With: Alone Home Adaptive Equipment: Cane, Walker - rolling Home Access: Elevator Prior Function Level of [place]: Needs assistance with mobility, Needs assistance with functional transfers Ambulation Status: Household ambulator Receives Help From: Family Indoor Mobility Assistance: Needed Some Help Stairs Assistance : Not Applicable Prior Device Use: Cane Prior Function Comments: daughter assisted with adls and mobility General Assessment Coin Purse [employer]amer Services Is an educational interpreter used? : Yes Information Interpreted: Assessment Coin Purse Framer Provider Service: amn Coin Purse Framer Name or Number: [id number] Type of Resource Used: Video remote educational interpreter Length of Time Coin Purse [employer]amer Services Utilized (min): 60 Minutes Communication Needs: Coin Purse Framer (Legal) 05/21/25 1545 PT Last Visit PT Received On 05/21/25 General Family/Caregiver Present Yes PT Time Calculation PT Start Time 1545 PT Stop Time 1645 PT Time Calculation (min) 60 min Precautions Medical Precautions Fall Risk Safety Interventions Telesitter;Side rails up x1;Bed alarm;Call lynch within reach RUE Weight Bearing Status Full LUE Weight Bearing Status Full RLE Weight Bearing Status Full LLE Weight Bearing Status Full Vital Signs Temp 36 ??C (96.8 ??F) Temp Source Temporal Heart Rate 66 Resp 16 BP 96/58 MAP (Device/Manual Entry) 67 mmHg MAP (Calculated) 71 mm Hg BP Location Right arm Patient Position Lying SpO2 94 % Oxygen Therapy Oxygen Therapy None (Room air) O2 Flow Rate (L/min) 0.5 L/min Pain Assessment Pain Assessment No/denies pain Pain Location Leg Pain Orientation Right Cognition Orientation Level Disoriented to place;Disoriented to situation;Disoriented to time Following Commands Follows multistep commands with increased time Home Living Type of Home Apartment Lives With Alone Home Adaptive Equipment Cane;Walker - rolling Home Access Elevator Prior Function Level of [place] Needs assistance with mobility;Needs assistance with functional transfers Ambulation Status Household ambulator Receives Help From Family Indoor Mobility Assistance Needed Some Help Stairs Assistance Not Applicable Prior Device Use Cane Prior Function Comments daughter assisted with adls and mobility Activity Tolerance Endurance Tolerates 10 - 20 min exercise with multiple rests Proprioception Proprioception No apparent deficits Coordination Coordination Gross motor impaired Postural Control Postural Control Deficits on evaluation Trunk Control mildly impaired Static Sitting Balance Static Sitting-Level of Assistance Contact guard Static Sitting-Balance Support Right upper extremity supported;Left upper extremity supported Static Standing Balance Static Standing-Level of Assistance Maximum assistance Static Standing-Balance Support Left upper extremity supported;Right upper extremity supported Static Standing-Comment/Number of Minutes 30 seconds Dynamic Standing Balance Dynamic Standing-Level of Assistance Maximum assistance Dynamic Standing-Balance During completion of ADLs Dynamic Standing-Balance Support Right upper extremity supported;Left upper extremity supported Dynamic Standing-Comments during bed-commode transfer Bed Mobility Rolling Left and Right Assistance Maximum assistance Sitting to Lying Assistance Maximum assistance Lying to Sitting Assistance Maximum assistance Transfers Sit to Stand Assistance Maximum assistance Toilet Transfer Assistance Assist x2 Toilet Transfer Deficit (assist of 2, for standing toilet hygiene) Ambulation Walking Assistance Dependent Device No device Distance Ambulated (ft) 1 Stairs 1 step (curb): Assistance Not applicable, did not do prior RUE Assessment RUE Assessment Impaired RUE Assessment Comments edematous forearm d/t iv site; decreased sshoulder ROM 115;gen. weakness LUE Assessment LUE Assessment Comments gen. weakness RLE Assessment RLE Assessment Impaired RLE Assessment Comments c/o pain , supine-sitting -n hip; firm tissue r ant thigh; marked weakness LLE Assessment LLE Assessment Impaired LLE Assessment Comments marked weakness PT Assessment PT Assessment Results Decreased strength;Decreased range of motion;Decreased endurance;Impaired balance;Impaired gait;Decreased mobility;Decreased coordination;Decreased cognition;Obesity;Decreased skin integrity;Pain Prognosis Good Evaluation/Treatment Tolerance Patient limited by fatigue Medical Staff Made Aware Yes Plan Treatment/Interventions Functional transfer training;LE strengthening/ROM;Endurance training;Patient/family training;Equipment eval/education;Bed mobility;Gait training;Compensatory technique educatio n;Continued evaluation;Balance training PT Plan Skilled PT PT Frequency 2-5 days per week PT Discharge Recommendations residential facility placement Equipment Recommended (TBD) PT - Evaluation Status Complete PT Evaluation Time Entry PT Evaluation (Moderate) Time Entry 60 ADDITIONAL COMMENTS: Chart reviewed. RN clears pt for session. Pt agrees to participate and presented in supine upon PT arrival. All lines in place. Initiated education on the importance of PT, bed mobility safety, Transfer Safety, Ambulation Safety , Therapy Plan of Care, Home Safety, Energy Conservations strategies, and importance of OOB activity . Pt verbalized understanding. EXIT STATUS: Session ended with patient supine, tray table and call light within reach, and RN made aware. Physical Therapy Assessment/Plan Chayito Klein is a 79 y.o. female admitted to [facility] on 05/15/2025 for Hypercalcemia [E83.52] Acute metabolic encephalopathy [G93.41] . Pt presents with decreased BLE strength, balance deficits, decreased activity tolerance, and far below functional baseline. Pt will benefit from skilled acute PT during hospital stay to improve the deficits listed above and optimize function. PT recommends [facility] nursing facility placement when medically stable for safe discharge and to optimize functional mobility and independence. Goals Encounter Problems Encounter Problems (Active) Template: Physical Therapy Problem: PT Short Term Goals Dates: Start: 05/21/25 Goal: Patient will transfer safely with min assist Dates: Start: 05/21/25 Expected End: 05/29/25 Goal: Patient will ambulate with rwalker x 20 ft, min assist Dates: Start: 05/21/25 Expected End: 05/28/25 Encounter Problems (Resolved) There are no resolved problems. Education Documentation Explain information regarding therapeutic regimen, taught by Milena Wayne PT at 05/21/2025 5:22 PM. Learner: Family, Patient Readiness: Acceptance Method: Explanation Response: Verbalizes Understanding Comment: discussed POC and rec. for snf on dc Teach information regarding safety precautions, taught by Milena Wayne PT at 05/21/2025 5:22 PM. Learner: Family, Patient Readiness: Acceptance Method: Explanation Response: Verbalizes Understanding Comment: discussed POC and rec. for snf on dc Teach proper use of assistive devices, taught by Milena Wayne PT at 05/21/2025 5:22 PM. Learner: Family, Patient Readiness: Acceptance Method: Explanation Response: Verbalizes Understanding Comment: discussed POC and rec. for snf on dc Education Comments No comments found. Milena Wayne PT [1] Patient Active Problem List Diagnosis Cardiomyopathy ([facility] V24, [facility] V28) COPD (chronic obstructive pulmonary disease) [place] [place] [facility] V28) DM2 (diabetes mellitus, type 2) ([facility] V24, [facility] V28) HTN (hypertension) Hyperlipidemia with target LDL less than 70 Observed sleep apnea Paroxysmal A-fib ([facility] [place], [facility] V28) Tracheal stenosis Malignant neoplasm of overlapping sites of right breast in female, estrogen receptor positive ([facility] V24, [facility] V28) Acute metabolic encephalopathy Hypercalcemia Malignancy (CMS/HCC V24, CMS/HCC V28) Severe protein-calorie malnutrition (CMS/HCC V24) Hypotension [2] History reviewed. No pertinent past medical history. [3] Past Surgical History: Procedure Laterality Date US GUIDED BREAST BIOPSY RIGHT Right 2020 * Betty Obrien, RD - 05/21/2025 1:55 PM EDT 05/21/2025 @ 1:55 PM EDT Nutrition Follow Up Note Coin Purse Framer Services: Language: Ecuadorean speaking, educational interpreter not utilized for this interview, patient sleeping and daughter providing history Reason for RD Intervention: Assessment Type: Follow-up Reason for Assessment: High MST Score Anthropometrics: Height: 157.5 cm (62 ) Weight: 48.6 kg (107 lb 3.2 oz) BMI (Calculated): 19.6 BMI Class: Normal IBW (lbs): 110 Recent Weight Change: Yes Other (Comment): If recorded weight history accurate 27% loss over 3 months Current Diet and Supplements: Dietary Orders (From admission, onward) Start Ordered 05/20/25 1726 Adult diet [facility]; General; Regular Diet effective now Question Answer Comment Location [facility] Diet Type (req) General General Diet Regular 05/20/25 1726 05/18/25 1235 Dietary nutrition supplements Two times daily (BID); [facility]; Standard Oral Supplement Continuous Comments: [place] or vanilla Question Answer Comment Frequency Two times daily (BID) Location [facility] Supplements Standard Oral Supplement 05/18/25 1234 History of presenting illness: Patient is a 79 y.o. female with a history of Medical History[1] Surgical History[2] admitted 05/15/2025 with Acute metabolic encephalopathy. Weight History: Wt Readings from Last 10 Encounters: 05/15/25 48.6 kg (107 lb 3.2 oz) 01/30/25 66.2 kg (146 lb) 07/24/24 68 kg (150 lb) 12/16/23 69.9 kg (154 lb 3.2 oz) 07/04/23 73 kg (161 lb) 06/15/23 72.1 kg (159 lb) 01/12/23 76.7 kg (169 lb 3.2 oz) 12/15/22 74.8 kg (165 lb) 06/21/22 71.2 kg (157 lb) 06/16/22 76.7 kg (169 lb) Subjective Assessment: Patient sleeping, daughter at bedside. Patient with slightly improved intake, daughter reports she likes Ensure supplements and has been consuming most of the Ensure and 25-50% meals. Daughter has been present at mealtimes to encourage patient to eat and has not noted any difficulty swallowing, though notes she has some difficulty chewing meats. Nutrition-Related Lab Values: Results from last 7 days Lab Units 05/21/25 0613 05/21/25 0355 05/20/25 0746 SODIUM mmol/L 144 -- 146* POTASSIUM mmol/L 4.7 -- 4.2 MAGNESIUM mg/dL -- -- 2.1 CHLORIDE mmol/L 117* -- 119* CO2 mmol/L 20* -- 20* BUN mg/dL 31* -- 22 CREATININE mg/dL 2.79* -- 2.29* EGFR mL/min/1.73m2 17* -- 21* CALCIUM mg/dL 7.1* -- 7.9* BILIRUBIN TOTAL mg/dL -- -- 0.4 ALK PHOS unit/L -- -- 367* ALT unit/L -- -- 23 AST unit/L -- -- 235* POCT GLUCOSE -- < > -- GLUCOSE mg/dL 258* -- 200* WBC AUTO K/mcL 14.9* -- -- < > = values in this interval not displayed. Medications: MEDSSCHEDULED[3] CONTINUOUS: MEDSCONTINUOUS[4] MEDSPRN[5] Food/Nutrition-Current Status: Intake Type: P.O. Appetite: Fair Intake Amount (%): 25-50% Intake Assessment: Improved Main IVF: None Main IVF Rate (mL/hr): 75 Barriers: Cognitive, Language (Ecuadorean speaking) Nutrition Focused Physical Findings: Overall Appearance: Patient lying in bed, sleeping, daughter at bedside Digestive System (Mouth to Rectum): Appetite change Nerves and Cognition: Somnolent Skin: no wounds noted Loss of Fat Location: Orbital, Ribs, Triceps Loss of Fat Amt-Orbital: Moderate Loss of Fat Amt-Triceps: Moderate Loss of Fat Amt-Ribs: Moderate Loss of Muscle Location: Temples, Clavicle, Interosseous Loss of Muscle Amt-Temples: Moderate Loss of Muscle Amt-Clavicle: Moderate Loss of Muscle Amt-Inter Musc: Moderate Nutrition Diagnosis: Code Type: Severe-Acute (E43) Severe-Acute Criteria: Weight Loss >7.5%/3 mos, Moderate Body Fat Depletion, Moderate Muscle Mass Depletion Status: Other (Comment) (ongoing) Diagnosis: Malnutrition Etiology: Increased demand for nutrient, Changes in taste and appetite or preference Symptoms: 27% weight loss over 3 months. moderate muscle and fat depletion Additional Nutrition Diagnosis?: Yes Status: Improvement Diagnosis: Inadequate Oral Intake Etiology: Physiologic causes, Changes in taste and appetite or preference Symptoms: weight loss, muscle and fat depletion Nutrition Interventions: Medical Food Supplement, Meals/Snacks Medical Food Supplement(s): Ensure Plus Continue supplements, encourage PO intake, assist with meals, notified diet office of food preferences and requested chopped meats. Nutrition Education Education Materials Reviewed: Not provided, follow for need Goals: Patient will consume greater than or equal to 75% meals., Patient will consume ONS., Improvement inrenal labs., Electrolytes within normal range., Maintain weight., Stooling appropriately., and Maintain skin integrity. Coordination of Patient Care: Verbal discussion with RN. and Care plan discussed with patient/family. Monitoring/Evaluation: Food Intake, Medical Food Supp/Oral Nutrition Supp, Weight, Renal/Electrolyte Profile Follow Up: Nutrition Priority Level: Moderate Nutritional Discharge Recommendations: RD remains available and will continue to follow. Signature: Betty Obrien RD [1] History reviewed. No pertinent past medical history. [2] Past Surgical History: Procedure Laterality Date US GUIDED BREAST BIOPSY RIGHT Right 2020 [3] acetaminophen, 1,000 mg, oral, q8h EMILY apixaban, 2.5 mg, oral, BID [Held by provider] digoxin, 125 mcg, oral, Once per day on Tuesday fluticasone propionate, 2 spray, Each Nostril, Daily [Held by provider] gabapentin, 100 mg, oral, Nightly lactated Ringer's, 125 mL/hr, intravenous, See admin instructions letrozole, 2.5 mg, oral, Daily metoprolol tartrate, 5 mg, intravenous, q6h [Held by provider] metoprolol tartrate, 50 mg, oral, q6h midodrine, 10 mg, oral, TID AC multivitamin, 1 each, oral, Daily rosuvastatin, 10 mg, oral, Nightly [Held by provider] sacubitriL-valsartan, 1 tablet, oral, BID sodium chloride, 10 mL, intravenous, BID [Held by provider] spironolactone, 12.5 mg, oral, Daily [Held by provider] tamsulosin, 0.4 mg, oral, Daily thiamine, 100 mg, oral, Daily [4] [5] PRN medications: metoprolol tartrate, naloxone, ondansetron (ZOFRAN-ODT) disintegrating tablet OR ondansetron, oxyCODONE, polyetheylene glycol, prochlorperazine OR prochlorperazine ORprochlorperazine, Insert peripheral IV AND Maintain IV access AND Saline lock IV AND sodium chloride AND sodium chloride * Desmond Molina MD - 05/21/2025 12:39 PM EDT Images from the original note were not included. [facility] PROGRESS NOTE Date: 05/21/2025 Author: Desmond Molina MD Patient ID: Chayito Klein is a 79 y.o. female : 1945 MR#: [id number] SUBJECTIVE CC:f/u bone mets, anemia, encephalopathy Overnight events noted. Patient was hypotensive again. Urine cultures have been ordered but it was discontinued today by infection prevention team, notingthat patient does not meet criteria based on their algorithm. Informed them that UC was sent to r/usepsis as pt was hypotensive. This morning pt was awake and alert. He daughter was feeding her. Pt had no complaints. Denies SOB.She was getting IVFs. Daughter was updated at beside about low BP issues, ZEN and plan to give IVFsand monitor BP, respiratory status. ROS: No chest pain No sob No N/V No abd pain OBJECTIVE Vitals: Vitals: 05/21/25 1132 BP: (!) 92/48 Pulse: 91 Resp: 16 Temp: 36 ??C (96.8 ??F) SpO2: 100% Physical Exam: General: Awak, alert. NAD. Conically ill appearing. Psych: mood stable. No agitation. No sedation. CVS: S1 S2 no mrg Ext: no pitting edema. PUL: No audible wheezes or crackles. No overt tachypnea. GI: BS present. ND or guarding. Skin: no cyanosis LAB RESULTS HEMATOLOGY Lab Results Component Value Date WBC 14.9 (H) 05/21/2025 HGB 9.0 (L) 05/21/2025 HCT 32.1 (L) 05/21/2025 MCV 93.6 05/21/2025 PLT 268 05/21/2025 CHEMISTRY Lab Results Component Value Date GLUCOSE 258 (H) 05/21/2025 NA 144 05/21/2025 K 4.7 05/21/2025 CO2 20 (L) 05/21/2025 CL 117 (H) 05/21/2025 BUN 31 (H) 05/21/2025 CREATININE 2.79 (H) 05/21/2025 EGFR 17 (L) 05/21/2025 CALCIUM 7.1 (L) 05/21/2025 MG 2.1 05/20/2025 ANIONGAP 7 05/21/2025 ASSESSMENT & PLAN 79-year-old female with PMH of breast cancer diagnosed in 2020 status postmastectomy currently on letrozole, osteoarthritis, HTN, glaucoma, dyslipidemia, diabetes, LEYDA, CAD, cardiomyopathy, paroxysmal A-fib, COPD among others who presented on 05/15/2025 with confusion, generalized weakness and poor appetite, weight loss. Patient seen by oncology team and imaging studies demonstrated findings concerning for bone metastases as well as multiple myeloma. She was found to have hypercalcemia with calcium level 12.4. - Acute metabolic encephalopathy. Multifactorial. Hypercalcemia corrected. CT brain with no acute abnormality. Brain MRI with no acute intracranial abnormality, several small calvarial metastatic lesions are suspected. Much more alert last couple of days after not taking oxycodone. -ZEN. Probable ATN. Hypotension likely contributing. Renal consult appreciated. IVFs. Monitor respiratory status. Presently no dyspnea and lungs are clear BL. - Hypotension. Developed after resuming Entresto and Aldactone and continues to have low BP despite holding these medications for several days. Differential includes hypovolemia, sepsis. No fever. Lungs clear. UA abnormal but could be from [place]. Infection control declined to check urine cultures. Monitor how she responds to IVFs and if develops fever, will need to reconsider Urine culture. Not tolerating and will DC from meds Entresto, Aldactone for now. On Midodrine 10 mg TID. Transition to PO metoprolol later today. -Hypercalcemia. Likely secondary to malignancy, probably breast. PTH suppressed at 9.7. PTH related peptide pending. Status post zoledronic acid. Calcium normalized. SPEP with no M spike. [place]/lambda ratio normal. - Breast cancer. Outpatient CT scan demonstrated multiple Lucent lesions in right humeral shaft, rib, vertebrae suspicious for multiple myeloma versus metastatic disease. Bone scan revealed multipe bone mets. Seen by Dr. Joseph and recommended bone biopsy. S/p bone biopsy on 05/20. - Hypokalemia. Replaced. - Hypernatremia. Better. - Severe body pain. Likely from bone mets. Comfortable with just tylenol TID and avoid opioids as much as possible. - Atrial fibrillation with RVR. Heart rate improved. Digoxin 125 on hold dt/ ZEN> Resume 2.5 mg twice daily Eliquis - Chronic systolic and diastolic heart failure. TTE attempted but patient could not tolerate. LEAD ARCHITECT apparently she was not compliant with Entresto and developed hypotension here. GDMT limited due to hypotension at this time and will be discontinued. -Malnutrition. Likely related to underlying cancer DVT prophylaxis: Heparin CODE STATUS: Full code confirmed by HCP/daughter. Patient's daughter, Maggie Donald, * ANY Walton - 05/21/2025 6:03 AM EDT Rapid response called at 0354 due to hypotension of 72/46. Upon arrival, new BP has been obtained with repeat showing 115/57 and 99/60. Heart rate ranging between 80-110s- afib. Pt is laying in bed, appears comfortable. Utilizing electronic bedside interpretor, pt denies any symptoms or chest pain. - Holding morning dose of Metoprolol Shortly after, CC notified that the pt has not produced any urine overnight. She has been [id number] mL/hour of IV fluids. Bladder scan does not show any urine. Analytics Associate was 1.15 on 05/19 with increase up to 2.29 on 05/20. - Nursing able to to obtain 30 cc of urine; will send in for UA, urine sodium, creatinine, osmolality - Avoid nephrotoxins and renally adjust mediations - Obtain morning labs and monitor academic coach - Consult placed with nephrology; input appreciated Discussed with Dr.Christopher Sanz * Brissa Pride RN - 05/21/2025 4:46 AM EDT RR called at 0354 due to hypotension. BP initially 81/44, manual taken was 72/46, HR afib 110 spo2 100% RR 16. Once providers came to bedside next cycled BP's were 115/57 and 99/60. Pt did not endorse any symptoms using ANM educational interpreter. Verbal order to hold IV metoprolol br Dr. Sanz, otherwise no new orders. * Melissa Escalera, PT - 05/20/2025 3:00 PM EDT Physical Therapy Therapy session was attempted for Chayito Klein by Melissa Escalera PT on 05/20/2025. The patient was unable to be seen for the following reason(s): Other: Pt in deep sleep and difficult to arouse this afternoon. PT notified nurse. Defer PT for today. Plan for return visit: Tomorrow * Georgette Huggins RN - 05/20/2025 11:24 AM EDT DAVON: 05/21 Barrier: hypercalcemia, hypotensive, bone biopsy Pending Plan: Home with kulwinder * Desmond Molina MD - 05/20/2025 11:08 AM EDT Images from the original note were not included. GAUTAM PROGRESS NOTE Date: 05/20/2025 Author: Desmond Molina MD Patient ID: Chayito Klein is a 79 y.o. female : 1945 MR#: [id number] SUBJECTIVE CC:f/u bone mets, anemia, encephalopathy Patient awake and alert this morning. Patient's family including daughter, Maggie at bedside she admits that patient was very somnolent and confused yesterday evening but today she is looking much better. Pt is smiling and reports only mild pain in her feet (chronic). She is on Tylenol and has not required any oxycodone overnight. Heparin drip remains on hold since 4 am. Maggie provides interpretation. ROS: Denies chest pain No sob No N/V No abd pain OBJECTIVE Vitals: Vitals: 05/20/25 1056 BP: 93/55 Pulse: 92 Resp: 24 Temp: 36.4 ??C (97.5 ??F) SpO2: 100% Physical Exam: General: Awak, alert. NAD Psych: mood stable. No agitation. No more sedation. CVS: S1 S2 no mrg Ext: no pitting edema. PUL: No audible wheezes or crackles. GI: BS present. No tenderness not clammy. Skin: no cyanosis LAB RESULTS HEMATOLOGY Lab Results Component Value Date WBC 12.1 (H) 05/20/2025 WBC 12.1 (H) 05/20/2025 HGB 10.0 (L) 05/20/2025 HGB 10.0 (L) 05/20/2025 HCT 36.5 05/20/2025 HCT 36.5 05/20/2025 MCV 96.3 05/20/2025 MCV 96.3 05/20/2025 PLT 209 05/20/2025 PLT 209 05/20/2025 CHEMISTRY Lab Results Component Value Date GLUCOSE 169 (H) 05/19/2025 NA 145 05/19/2025 K 3.7 05/19/2025 CO2 25 05/19/2025 CL 115 (H) 05/19/2025 BUN 14 05/19/2025 CREATININE 1.15 (H) 05/19/2025 EGFR 48 (L) 05/19/2025 CALCIUM 7.9 (L) 05/19/2025 MG 2.1 05/19/2025 ANIONGAP 5 05/19/2025 ASSESSMENT & PLAN 79-year-old female with PMH of breast cancer diagnosed in 2020 status postmastectomy currently on letrozole, osteoarthritis, HTN, glaucoma, dyslipidemia, diabetes, LEYDA, CAD, cardiomyopathy, paroxysmal A-fib, COPD among others who presented on 05/15/2025 with confusion, generalized weakness and poor appetite, weight loss. Patient seen by oncology team and imaging studies demonstrated findings concerning for bone metastases as well as multiple myeloma. She was found to have hypercalcemia with calcium level 12.4. - Acute metabolic encephalopathy. Multifactorial. Hypercalcemia corrected. CT brain with no acute abnormality. Brain MRI results reviewed: No acute intracranial abnormality. Several small calvarial metastatic lesions are suspected. Much more alert today. Keep holding oxycodone unless severe pain recurs (dose reduced) -Hypercalcemia. Likely secondary to malignancy. PTH suppressed at 9.7. PTH related peptide pending. Status post zoledronic acid. Calcium normalized. SPEP, light chains pending as multiple myeloma on differential. - Hypotension. Developed after resuming Entresto and Aldactone. Continue holding Entresto, Aldactone On metoprolol. IV since yesterday as she could not take some pills d/t somnolence. BP better. On Midodrine 10 mg TID. Transition to PO metoprolol later today. ADDENDUM -ZEN. BMP results reviewed and creatinine up to 2.2. Sodium slightly up to 146. Potassium normal at 4.2. ZEN could be from hypotension. BP better today. Continue hydration and repeat BMP in am. - Hypokalemia. Replaced. - Hypernatremia. On hypotonic IVFs. Better. Monitor. - Breast cancer. Outpatient CT scan demonstrated multiple Lucent lesions in right humeral shaft, rib, vertebrae suspicious for multiple myeloma versus metastatic disease. Bone scan revealed multipe bone mets. Seen by Dr. Joseph and recommended bone biopsy. Case had been discussed with IR and biopsy had been scheduled on today. Apixaban remains on hold and Heparin bridging also placed on hold in the morning - Severe body pain. Likely from bone mets. Comfortable with just tylenol TID and avoid opioids as much as possible. - Atrial fibrillation with RVR. Heart rate improved. Digoxin 125 mcg daily, BB. 2.5 mg twice daily Eliquis on hold. On heparin drip as outlined above - Chronic systolic and diastolic heart failure. TTE attempted but patient could not tolerate. LEAD ARCHITECT apparently she was not compliant with Entresto and developed hypotension here. GDMT limited due to hypotension at this time -Malnutrition. Likely related to underlying cancer DVT prophylaxis: Heparin CODE STATUS: Full code confirmed by HCP/daughter. Patient's daughter, Maggie Donald, * Janes Calhoun RN - 05/19/2025 5:10 PM EDT Patient awake and eating with daughter at bedside, was able to take digoxin and midodrine crushed in applesauce. No cough or dysphagia noted. * Janes Calhoun RN - 05/19/2025 2:01 PM EDT Patient not following simple commands (pocketing food, not swallowing), unable to take PO meds. has been notified. * Desmond Molina MD - 05/19/2025 12:31 PM EDT Images from the original note were not included. GAUTAM PROGRESS NOTE Date: 05/19/2025 Author: Desmond Molina MD Patient ID: Chayito Klein is a 79 y.o. female : 1945 MR#: [id number] SUBJECTIVE CC:f/u bone mets, anemia, encephalopathy Patient seen first time today. Interviewed via [place]cu[place] speaking staff/Pt's RN at bedside who noted that pt could not really use machine educational interpreter earlier. Pt appears comfortable but sedated as per nurse she was in severe pain this morning and was crying.Apparently received 10 mg oxycodone which helped pain. Patient denies any symptoms but she is forgetful and encephalopathic. Reliable history cannot be obtained from her. ROS: Limited historian. Denies chest pain or shortness of breath Denies headache OBJECTIVE Vitals: Vitals: 05/19/25 1208 BP: 92/50 Pulse: Resp: Temp: SpO2: Physical Exam: General: Awake but sedated/somnolent. NAD Psych: mood stable. No agitation. CVS: S1 S2 no mrg Ext: no pitting edema. PUL: Poor inspiratory effort. No audible wheezes or crackles. GI: BS present. No tenderness not clammy. Skin: no cyanosis or rashes. LAB RESULTS HEMATOLOGY Lab Results Component Value Date WBC 10.7 05/17/2025 HGB 11.4 (L) 05/17/2025 HCT 38.4 05/17/2025 MCV 89.5 05/17/2025 PLT 416 (H) 05/17/2025 CHEMISTRY Lab Results Component Value Date GLUCOSE 119 (H) 05/19/2025 NA 146 (H) 05/19/2025 K 2.7 (LL) 05/19/2025 CO2 26 05/19/2025 CL 114 (H) 05/19/2025 BUN 10 05/19/2025 CREATININE 0.77 05/19/2025 EGFR 78 05/19/2025 CALCIUM 8.3 (L) 05/19/2025 MG 2.1 05/19/2025 ANIONGAP 6 05/19/2025 ASSESSMENT & PLAN 79-year-old female with PMH of breast cancer diagnosed in 2020 status postmastectomy currently on letrozole, osteoarthritis, HTN, glaucoma, dyslipidemia, diabetes, LEYDA, CAD, cardiomyopathy, paroxysmal A-fib, COPD among others who presented on 05/15/2025 with confusion, generalized weakness and poor appetite, weight loss. Patient seen by oncology team and imaging studies demonstrated findings concerning for bone metastases as well as multiple myeloma. She was found to have hypercalcemia with calcium level 12.4. - Acute metabolic encephalopathy. Multifactorial. Hypercalcemia corrected. CT brain with no acute abnormality. Brain MRI results reviewed: No acute intracranial abnormality. Several small calvarial metastatic lesions are suspected. Today this morning she is oversedated slightly with oxycodone 10 mg. -Hypercalcemia. Likely secondary to malignancy. PTH suppressed at 9.7. PTH related peptide pending. Status post zoledronic acid. Calcium normalized. SPEP, light chains pending as multiple myeloma on differential. - Hypotension. Developed after resuming Entresto and Aldactone. Continue holding Entresto, Aldactone And metoprolol with holding parameters Patient was started on midodrine 5 mg 3 times a day. BP still soft. Will increase Midodrine to 10 mg TID and given additiona IVFs as not taking much by mouth. - Hypokalemia. Potassium 2.7. Replacing with 40 mEq IV KCl - Hypernatremia. Sodium 146 today. Likely from inadequate fluid intake and free water deficit. Decrease sedatives and encourage oral hydration. If no improvement may need to change IV fluids to hypotonic. First replace potassium. - Breast cancer. Outpatient CT scan demonstrated multiple Lucent lesions in right humeral shaft, rib, vertebrae suspicious for multiple myeloma versus metastatic disease. Bone scan revealed multipe bone mets. Seen by Dr. Joseph and recommended bone biopsy. Case had been discussed with IR and biopsy had been scheduled on Tuesday. Apixaban remains on hold and currently bridging with heparin which will be placed on hold in the morning. I called and updated her daughter, Maggie and updated about plans of care. She last saw time her mother yesterday and stated that she was improving and more oriented. She is aware about biopsy plans and is ready to provide consent. She also confirmed full code status. - Severe body pain. Likely from bone mets. Pain free after 10mg Oxycodone but sedated and more encephalopathic. Change to 5mg Oxycodone for severe pain. Start 1g Q8 hour Tylenol. - Atrial fibrillation with RVR. Heart rate improved. On Lopressor 50 mg every 6 hours. Digoxin 125 mcg daily. 2.5 mg twice daily Eliquis on hold. On heparin drip as outlined above - Chronic systolic and diastolic heart failure. TTE attempted but patient could not tolerate. LEAD ARCHITECT apparently she was not compliant with Entresto and developed hypotension here. GDMT limited due to hypotension at this time -Acute metabolic encephalopathy. Mental status fluctuating. Hypercalcemia corrected. Now confused and sedated. Could be from oxycodone. Monitor. -Malnutrition. Likely related to underlying cancer DVT prophylaxis: Heparin CODE STATUS: Full code. Explained that it could be futile to ressuscitate if she has end stage cancer. She wants to keep her mother Full code. Patient's daughter, Maggie Donald, Total time spent: >60 min on reviewing labs, images, evaluating pt, ordering tests/treatments and discussing with family and staff. * Ernesto Lynch MD - 05/18/2025 9:54 AM EDT Images from the original note were not included. GAUTAM PROGRESS NOTE Date: 05/18/2025 Author: Ernesto Lynch MD Patient ID: Chayito Klein is a 79 y.o. female : 1945 MR#: [id number] ASSESSMENT & PLAN Assessment/Plan Principal Problem: Acute metabolic encephalopathy Active Problems: Hypercalcemia Malignancy (CMS/HCC V24, CMS/HCC V28) Severe protein-calorie malnutrition (CMS/HCC V24) Hypotension Chayito Klein is a 79 y.o. female who has history of right sided stage I breast cancer diagnosed in 2020 s/p partial mastectomy and letrozole, osteoarthritis, glaucoma, HTN, hyperlipidemia, diabetes, LEYDA, CAD, cardiomyopathy, paroxysmal A-fib, COPD. Patient presented to ED due to confusion for few days. She has been having weakness, reduced appetite and weight loss for past few weeks as well as back pain for which she had outpatient CT which showed findings concerning for multiple myeloma. 1. Hypercalcemia S/p zoledronic acid and IV normal saline. Serum calcium trending down. PTH reduced at 9.7. Likely hypercalcemia of malignancy. 2. Acute metabolic encephalopathy Patient still confused. CT brain showed no acute abnormality. I will order MRI brain. 3. Hypotension Patient developed hypotension after resuming Entresto and lactone. I have held his medications and also added tamsulosin. Continue midodrine 5 mg 3 times daily. 4. Malignancy/history of breast cancer Outpatient CT was done with findings of multiple lucent lesions within right humeral shaft, rib, vertebrae. Suspicious for multiple myeloma versus metastatic disease. SPEP and immunofixation results pending. CT CAP showed multiple osseous lesions. IR consulted for biopsy to be done on Sunday 05/20. Nuclear bone scan showed diffuse osseous lesions. 5. A-fib with RVR Continues in A-fib, rate improved to 90s-low 100s. Continue with Lopressor 50 mg every 6 hours and heparin drip. 6. History of HFrEF H/O systolic and diastolic dysfunction. TTE attempted but patient could not tolerate. Patient was not compliant with Entresto due to hypotension at home. GDMT limited by hypotension at this time. 7. Malnutrition Likely severe malnutrition. Dietitian consulted. SUBJECTIVE Subjective No events overnight. Patient's son was present at bedside. Patient oriented only to person, confused and rambling, occasionally redirectable. She denied pain. Allergies Patient has no known allergies. Current Medications: [Held by provider] apixaban, 2.5 mg, oral, BID digoxin, 125 mcg, oral, Once per day on Tuesday fluticasone propionate, 2 spray, Each Nostril, Daily gabapentin, 100 mg, oral, Nightly letrozole, 2.5 mg, oral, Daily metoprolol tartrate, 50 mg, oral, q6h midodrine, 5 mg, oral, TID AC rosuvastatin, 40 mg, oral, Nightly [Held by provider] sacubitriL-valsartan, 1 tablet, oral, BID sodium chloride, 10 mL, intravenous, BID [Held by provider] spironolactone, 12.5 mg, oral, Daily [Held by provider] tamsulosin, 0.4 mg, oral, Daily heparin, 20 Units/kg/hr, Last Rate: 18 Units/kg/hr (05/17/252155) sodium chloride, 75 mL/hr, Last Rate: 75 mL/hr (05/17/251750) PRN medications: acetaminophen, heparin OR heparin, metoprolol tartrate, naloxone, ondansetron (ZOFRAN-ODT) disintegrating tablet OR ondansetron, oxyCODONE, oxyCODONE, polyetheylene glycol, prochlorperazine OR prochlorperazine OR prochlorperazine, Insert peripheral IV AND Maintain IV access AND Saline lock IV AND sodium chloride AND sodium chloride OBJECTIVE Vitals: 05/18/25 0006 05/18/25 0348 05/18/25 0814 05/18/25 0828 BP: 99/55 101/53 105/50 BP Location: Left arm Patient Position: Lying Pulse: 83 (!) 116 97 Resp: 16 12 Temp: 36.4 ??C (97.6 ??F) 35.8 ??C (96.4 ??F) TempSrc: Temporal SpO2: 98% (!) 86% 94% Weight: Height: Physical Exam Vitals and nursing note reviewed. Constitutional: General: She is not in acute distress. Appearance: She is underweight. She is not toxic-appearing. HENT: Head: Normocephalic and atraumatic. Nose: Nose normal. Mouth/Throat: Mouth: Mucous membranes are moist. Eyes: Extraocular Movements: Extraocular movements intact. Pupils: Pupils are equal, round, and reactive to light. Cardiovascular: Rate and Rhythm: Normal rate. Rhythm irregular. Heart sounds: No murmur heard. Pulmonary: Effort: Pulmonary effort is normal. Breath sounds: Normal breath sounds. No wheezing or rales. Abdominal: General: Abdomen is flat. There is no distension. Palpations: Abdomen is soft. There is no mass. Tenderness: There is no abdominal tenderness. Musculoskeletal: General: No swelling or deformity. Skin: General: Skin is warm and dry. Neurological: General: No focal deficit present. Mental Status: She is alert. She is disoriented. LABS HEMATOLOGY Lab Results Component Value Date WBC 10.7 05/17/2025 HGB 11.4 (L) 05/17/2025 HCT 38.4 05/17/2025 MCV 89.5 05/17/2025 PLT 416 (H) 05/17/2025 CHEMISTRY Lab Results Component Value Date GLUCOSE 124 (H) 05/18/2025 NA 142 05/18/2025 K 3.7 05/18/2025 CO2 26 05/18/2025 CL 109 05/18/2025 BUN 14 05/18/2025 CREATININE 0.76 05/18/2025 EGFR 79 05/18/2025 CALCIUM 9.4 05/18/2025 MG 2.2 05/18/2025 ANIONGAP 7 05/18/2025 No results found for this or any previous visit (from the past week). Imaging: NM Bone/Joint Scan Whole Body Narrative: HISTORY: Bone lesion, humerus, malignancy suspected Unknown primary, initial workup Technique: Anterior and posterior planar imaging was performed after administration of 24.8 mCi Tc-99m MDP IV. Compared with the CT 05/16/2025 Findings: Multifocal increased uptake throughout the ribs, sternum, pelvis and proximal upper and lower extremities. Impression: Diffuse skeletal metastases. -------- FINAL REPORT -------- Dictated By: Roula Macario Dictated Date: 05/17/2025 17:21 ET Assigned Physician: Roula Macario Reviewed and Electronically Signed By: Roula Macario Signed Date: 05/17/2025 17:28 ET Workstation ID: [id number] Transcribed By: Self Edit Transcribed Date: 05/17/2025 17:21 ET DAILY CARE CHECKLIST Length of Stay: 02d 11h 08m VTE Prophylaxis: IV heparin Resuscitation: Full Code - Confirmed IV Access: Peripheral Tubes, Catheters, Devices: None PCP: Peyman Boss MD Disposition: Pending clinical improvement, bone biopsy 05/20 Ernesto Lynch MD 05/18/25 9:54 AM EDT * Agustina Martinez RN - 05/17/2025 1:47 PM EDT DAVON: 05/21 Barrier: hypercalcemia, hypotensive, bone biopsy on Tuesday Plan: current plan is home with daughter and VNA * Ernesto Lynch MD - 05/17/2025 11:37 AM EDT Images from the original note were not included. GAUTAM PROGRESS NOTE Date: 05/17/2025 Author: Ernesto Lynch MD Patient ID: Chayito Klein is a 79 y.o. female : 1945 MR#: [id number] ASSESSMENT & PLAN Assessment/Plan Principal Problem: Acute metabolic encephalopathy Active Problems: Hypercalcemia Malignancy ([facility]/HCC V24, CMS/HCC V28) Severe protein-calorie malnutrition ([facility] V24) Hypotension Chayito Klein is a 79 y.o. female who has history of right sided stage I breast cancer diagnosed in 2020 s/p partial mastectomy and letrozole, osteoarthritis, glaucoma, HTN, hyperlipidemia, diabetes, LEYDA, CAD, cardiomyopathy, paroxysmal A-fib, COPD. Patient presented to ED due to confusion for few days. She has been having weakness, reduced appetite and weight loss for past few weeks as well as back pain for which she had outpatient CT which showed findings concerning for multiple myeloma. 1. Hypercalcemia S/p zoledronic acid and IV normal saline. Serum calcium trending down. PTH reduced at 9.7. Likely hypercalcemia of malignancy. 2. Acute metabolic encephalopathy Likely related to hypercalcemia. CT showed no acute abnormality. 3. Hypotension Patient's blood pressure dropped, SBP in the 70s. She is not overly symptomatic. I have ordered fluid bolus and will hold antihypertensives including Entresto, tamsulosin, spironolactone. 4. Malignancy Outpatient CT was done with findings of multiple lucent lesions within right humeral shaft, rib, vertebrae. Suspicious for multiple myeloma versus metastatic disease. SPEP and immunofixation results pending. CT CAP showed multiple osseous lesions. IR consulted for biopsy. Pending bone scan. Oncology is following. 5. A-fib with RVR Continues to have elevated rates in the 130s, up to 150s overnight. Will continue digoxin and metoprolol tartrate 50 mg every 6 hours. Continue with heparin drip pending procedure. 6. History of HFrEF H/O systolic and diastolic dysfunction. TTE pending. Patient was not compliant with Entresto due tohypotension at home. GDMT limited by hypotension at this time. 7. Malnutrition Likely severe malnutrition. Dietitian consulted. SUBJECTIVE Subjective Overnight patient continues in A-fib with rates going up to the 180s at times. Her daughter was at bedside. Patient currently denying pain. She is still confused, believes she it is a form. She denied abdominal pain, nausea, vomiting, fever, chills. Allergies Patient has no known allergies. Current Medications: [Held by provider] apixaban, 2.5 mg, oral, BID digoxin, 125 mcg, oral, Once per day on Tuesday fluticasone propionate, 2 spray, Each Nostril, Daily gabapentin, 100 mg, oral, Nightly letrozole, 2.5 mg, oral, Daily metoprolol tartrate, 50 mg, oral, q6h rosuvastatin, 40 mg, oral, Nightly [Held by provider] sacubitriL-valsartan, 1 tablet, oral, BID sodium chloride, 1,000 mL, intravenous, Once sodium chloride, 10 mL, intravenous, BID [Held by provider] spironolactone, 12.5 mg, oral, Daily [Held by provider] tamsulosin, 0.4 mg, oral, Daily heparin, 20 Units/kg/hr, Last Rate: 20 Units/kg/hr (05/17/25 0600) sodium chloride, 75 mL/hr, Last Rate: 75 mL/hr (05/17/25 0825) PRN medications: acetaminophen, heparin OR heparin, metoprolol tartrate, naloxone, ondansetron (ZOFRAN-ODT) disintegrating tablet OR ondansetron, oxyCODONE, oxyCODONE, polyetheylene glycol, prochlorperazine OR prochlorperazine OR prochlorperazine, Insert peripheral IV AND Maintain IV access AND Saline lock IV AND sodium chloride AND sodium chloride OBJECTIVE Vitals: 05/17/25 1111 05/17/25 1116 05/17/25 1119 05/17/25 1127 BP: (!) 68/48 (!) 73/48 (!) 84/49 90/51 BP Location: Patient Position: Pulse: 79 Resp: Temp: TempSrc: SpO2: Weight: Height: Physical Exam Vitals and nursing note reviewed. Constitutional: General: She is not in acute distress. Appearance: She is underweight. She is not toxic-appearing. HENT: Head: Normocephalic and atraumatic. Nose: Nose normal. Mouth/Throat: Mouth: Mucous membranes are moist. Eyes: Extraocular Movements: Extraocular movements intact. Pupils: Pupils are equal, round, and reactive to light. Cardiovascular: Rate and Rhythm: Tachycardia present. Rhythm irregular. Heart sounds: No murmur heard. Pulmonary: Effort: Pulmonary effort is normal. Breath sounds: Normal breath sounds. No wheezing or rales. Abdominal: General: Abdomen is flat. There is no distension. Palpations: Abdomen is soft. There is no mass. Tenderness: There is no abdominal tenderness. Musculoskeletal: General: No swelling or deformity. Skin: General: Skin is warm and dry. Neurological: General: No focal deficit present. Mental Status: She is alert. She is disoriented. LABS HEMATOLOGY Lab Results Component Value Date WBC 10.7 05/17/2025 HGB 11.4 (L) 05/17/2025 HCT 38.4 05/17/2025 MCV 89.5 05/17/2025 PLT 416 (H) 05/17/2025 CHEMISTRY Lab Results Component Value Date GLUCOSE 130 (H) 05/17/2025 NA 139 05/17/2025 K 3.5 05/17/2025 CO2 31 05/17/2025 CL 103 05/17/2025 BUN 16 05/17/2025 CREATININE 0.82 05/17/2025 EGFR 72 05/17/2025 CALCIUM 10.4 05/17/2025 ANIONGAP 5 05/17/2025 No results found for this or any previous visit (from the past week). Imaging: CT Chest/Abdomen/Pelvis w Contrast Narrative: CT CHEST, ABDOMEN AND PELVIS WITH CONTRAST INDICATION: Unknown primary, initial workup TECHNIQUE: Chest, abdomen and pelvis CT following the intravenous administration of 90cc ISOVUE 370. Multiplanar reformats were created and interpreted. The examination was performed utilizing dose reduction techniques. Total DLP: 450 mGy/cm COMPARISON: No priors available. FINDINGS: LUNGS/PLEURA: Hypoventilatory examination with atelectasis. Patchy groundglass opacities in the upper lobes which could be infectious/inflammatory though a follow-up CT chest should be performed in 3months to ensure resolution. MEDIASTINUM: Cardiomegaly with coronary artery calcifications. Heterogenous appearance of the thyroid with thyroid nodules. CHEST WALL: Posttreatment changes in the right breast. HEPATOBILIARY: No focal liver lesions. Cholelithiasis. SPLEEN: no focal lesion PANCREAS: No focal mass or ductal dilatation. ADRENALS: No nodules. KIDNEYS/URETERS: Nonobstructing right renal calculi. PELVIC ORGANS/BLADDER: Bladder is distended. PERITONEUM / RETROPERITONEUM: No ascites or free air. No retroperitoneal lymphadenopathy. VESSELS: Sclerotic plaque throughout the GI TRACT: The aorta. BONES AND SOFT TISSUES: There are numerous metastatic lesions throughout the bones with multilevel degenerative changes of the spine with anterolisthesis of L4 and L5. No acute osseous abnormality. Remote rib deformities. Soft tissues are unremarkable. Impression: 1. Numerous metastatic lesions throughout the bones. 2. Nodular opacities in the upper lobes, consider follow-up CT in 1-3 months. -------- FINAL REPORT -------- Dictated By: Roula Macario Dictated Date: 05/16/2025 14:27 ET Assigned Physician: Roula Macario Reviewed and Electronically Signed By: Roula Macario Signed Date: 05/16/2025 14:48 ET Workstation ID: [id number] Transcribed By: Self Edit Transcribed Date: 05/16/2025 14:41 ET XR Humerus 2+ Views Right Narrative: INDICATION: Bone lesion, hemorrhage, malignancy suspected FINDINGS: Minimum of 2 views of the right humerus were obtained. No prior studies are available forcomparison. No fracture or dislocation. No periosteal reaction or radiopaque foreign body. No significant soft tissue abnormality. No lytic or sclerotic lesions. Postoperative changes overlying the right humeralhead with 2 metallic anchors. Degenerative changes. Impression: Degenerative and postoperative changes without acute bony abnormality. -------- FINAL REPORT -------- Dictated By: Gladis Mcgovern Dictated Date: 05/16/2025 09:24 ET Assigned Physician: Gladis Mcgovern Reviewed and Electronically Signed By: Gladis Mcgovern Signed Date: 05/16/2025 09:25 ET Workstation ID: [id number] Transcribed By: Self Edit Transcribed Date: 05/16/2025 09:24 ET XR Chest 1 View Narrative: XR CHEST 1 VIEW INDICATION: Heart failure, shortness of breath TECHNIQUE: XR CHEST 1 VIEW COMPARISON: 03/25/2021. Impression: FINDINGS/IMPRESSION: No pneumonia or pulmonary edema. No pleural effusion or pneumothorax. Cardiac silhouette is mildly enlarged. Bones are similar compared to 2020 with rotator cuff repair bone anchors noted at the right proximal humerus. S-shaped thoracolumbar scoliosis with degenerative changes seen throughout the spine. -------- FINAL REPORT -------- Dictated By: CHIDI PATEL Dictated Date: 05/16/2025 08:51 ET Assigned Physician: CHIDI PATEL Reviewed and Electronically Signed By: CHIDI PATEL Signed Date: 05/16/2025 08:53 ET Workstation ID: [id number] Transcribed By: Self Edit Transcribed Date: 05/16/2025 08:51 ET DAILY CARE CHECKLIST Length of Stay: 01d 12h 52m VTE Prophylaxis: IV heparin Resuscitation: Full Code - Confirmed IV Access: Peripheral Tubes, Catheters, Devices: None PCP: Peyman Boss MD Disposition: Pending clinical improvement Ernesto Lynch MD 05/17/25 11:38 AM EDT * Fernanda Blas RN - 05/17/2025 5:56 AM EDT Pt lost IV access (due to unwilling to unbend her arm as it was located in her AC). Pt's hep gtt/fluids were off for 3 hours. Rosalind AGARWAL was aware. Restarting hep gtt and will use 12:00 ptt to titrate the next dose. Fernanda Blas RN * Agustina Martinez RN - 05/16/2025 12:25 PM EDT 05/16/25 1225 Initial Transition Plan Initial Transition Plan Home Back up Transition Plan Back up Transition plan Home Health Care Discharge Planning Living Arrangements Alone Type of Residence Private residence Assistive Devices Cane Support Systems Children Medication Coverage Has Med Coverage Under Insurance Plan Yes Medication Affordability No concerns related to payment for meds Anticipated Discharge Needs Home Health RN Informed Choice Informed Choice Given? 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 ICC met with pt daughter (Maggie) who is agreeableto VNA referral. Would prefer home with services. * Ernesto Lynch MD - 05/16/2025 12:10 PM EDT Images from the original note were not included. GAUTAM PROGRESS NOTE Date: 05/16/2025 Author: Ernesto Lynch MD Patient ID: Chayito Klein is a 79 y.o. female : 1945 MR#: [id number] ASSESSMENT & PLAN Assessment/Plan Principal Problem: Acute metabolic encephalopathy Active Problems: Hypercalcemia Malignancy (CMS/HCC V24, CMS/HCC V28) Severe protein-calorie malnutrition (CMS/HCC V24) Chayito Klein is a 79 y.o. female who has history of right sided stage I breast cancer diagnosed in 2020 s/p partial mastectomy and letrozole, osteoarthritis, glaucoma, HTN, hyperlipidemia, diabetes, LEYDA, CAD, cardiomyopathy, paroxysmal A-fib, COPD. Patient presented to ED due to confusion for few days. She has been having weakness, reduced appetite and weight loss for past few weeks as well as back pain for which she had outpatient CT which showed findings concerning for multiple myeloma. 1. Hypercalcemia Patient presented with elevated corrected calcium 13.6. She is on IV normal saline. I ordered Zometa 4 mg. Will PTH and parathyroid hormone related peptide levels. 2. Acute metabolic encephalopathy Likely related to hypercalcemia. CT showed no acute abnormality. 3. Malignancy Outpatient CT was done with findings of multiple lucent lesions within right humeral shaft, rib, vertebrae. Suspicious for multiple myeloma versus metastatic disease. SPEP and immunofixation results pending. I will order CT chest abdomen and pelvis as well as bone scan. Oncologist to see. 4. A-fib with RVR History of paroxysmal A-fib. Currently having rates in the 130s. I have switched metoprolol succinate to metoprolol tartrate 50 mg 3 times daily and will continue telemetry monitoring. Patient is on digoxin. Eliquis held in the case that patient needs biopsy, will order IV heparin. 5. History of HFrEF H/O systolic and diastolic dysfunction. I do not see recent echocardiogram, will order TTE. I will continue with Entresto and spironolactone as at home. 6. Malnutrition Patient has evidence of weight loss. Will consult RD. SUBJECTIVE Subjective No events overnight. Patient's daughter was at bedside. She complained of her mid back pain. She denied nausea, vomiting, fever, chill, chest pain, shortness of breath. She is oriented only to person. Allergies Patient has no known allergies. Current Medications: digoxin, 125 mcg, oral, Once per day on Tuesday fluticasone propionate, 2 spray, Each Nostril, Daily gabapentin, 100 mg, oral, Nightly letrozole, 2.5 mg, oral, Daily metoprolol tartrate, 50 mg, oral, TID rosuvastatin, 40 mg, oral, Nightly sodium chloride, 10 mL, intravenous, BID tamsulosin, 0.4 mg, oral, Daily sodium chloride, 100 mL/hr, Last Rate: 100 mL/hr (05/16/25 1014) PRN medications: acetaminophen, metoprolol tartrate, naloxone, ondansetron (ZOFRAN-ODT) disintegrating tablet OR ondansetron, polyetheylene glycol, prochlorperazine OR prochlorperazine ORprochlorperazine, Insert peripheral IV AND Maintain IV access AND Saline lock IV AND sodium chloride AND sodium chloride, traMADoL OBJECTIVE Vitals: 05/15/25 2028 05/15/25 2257 05/16/25 0539 05/16/25 0752 BP: 128/74 (!) 122/97 131/87 122/80 BP Location: Left arm Left arm Right arm Left arm Patient Position: Lying Lying Lying Lying Pulse: 108 (!) 115 83 94 Resp: 18 16 15 Temp: 36 ??C (96.8 ??F) 36.6 ??C (97.8 ??F) 36.4 ??C (97.6 ??F) 35.7 ??C (96.3 ??F) TempSrc: Oral Temporal Temporal Temporal SpO2: 95% 95% 93% 94% Weight: 48.6 kg (107 lb 3.2 oz) Height: Physical Exam Vitals and nursing note reviewed. Constitutional: General: She is not in acute distress. Appearance: She is underweight. She is not toxic-appearing. HENT: Head: Normocephalic and atraumatic. Nose: Nose normal. Mouth/Throat: Mouth: Mucous membranes are moist. Eyes: Extraocular Movements: Extraocular movements intact. Pupils: Pupils are equal, round, and reactive to light. Cardiovascular: Rate and Rhythm: Tachycardia present. Rhythm irregular. Heart sounds: No murmur heard. Pulmonary: Effort: Pulmonary effort is normal. Breath sounds: Normal breath sounds. No wheezing or rales. Abdominal: General: Abdomen is flat. There is no distension. Palpations: Abdomen is soft. There is no mass. Tenderness: There is no abdominal tenderness. Musculoskeletal: General: No swelling or deformity. Skin: General: Skin is warm and dry. Neurological: General: No focal deficit present. Mental Status: She is alert. She is disoriented. LABS HEMATOLOGY Lab Results Component Value Date WBC 13.3 (H) 05/16/2025 HGB 10.9 (L) 05/16/2025 HCT 37.4 05/16/2025 MCV 91.0 05/16/2025 PLT 388 05/16/2025 CHEMISTRY Lab Results Component Value Date GLUCOSE 122 (H) 05/16/2025 NA 137 05/16/2025 K 4.0 05/16/2025 CO2 33 (H) 05/16/2025 CL 99 05/16/2025 BUN 20 05/16/2025 CREATININE 0.74 05/16/2025 EGFR 82 05/16/2025 CALCIUM 11.3 (H) 05/16/2025 ANIONGAP 5 05/16/2025 No results found for this or any previous visit (from the past week). Imaging: XR Humerus 2+ Views Right Narrative: INDICATION: Bone lesion, hemorrhage, malignancy suspected FINDINGS: Minimum of 2 views of the right humerus were obtained. No prior studies are available forcomparison. No fracture or dislocation. No periosteal reaction or radiopaque foreign body. No significant soft tissue abnormality. No lytic or sclerotic lesions. Postoperative changes overlying the right humeralhead with 2 metallic anchors. Degenerative changes. Impression: Degenerative and postoperative changes without acute bony abnormality. -------- FINAL REPORT -------- Dictated By: Gladis Mcgovern Dictated Date: 05/16/2025 09:24 ET Assigned Physician: Gladis Mcgovern Reviewed and Electronically Signed By: Gladis Mcgovern Signed Date: 05/16/2025 09:25 ET Workstation ID: [id number] Transcribed By: Self Edit Transcribed Date: 05/16/2025 09:24 ET XR Chest 1 View Narrative: XR CHEST 1 VIEW INDICATION: Heart failure, shortness of breath TECHNIQUE: XR CHEST 1 VIEW COMPARISON: 03/25/2021. Impression: FINDINGS/IMPRESSION: No pneumonia or pulmonary edema. No pleural effusion or pneumothorax. Cardiac silhouette is mildly enlarged. Bones are similar compared to 2020 with rotator cuff repair bone anchors noted at the right proximal humerus. S-shaped thoracolumbar scoliosis with degenerative changes seen throughout the spine. -------- FINAL REPORT -------- Dictated By: CHIDI PATEL Dictated Date: 05/16/2025 08:51 ET Assigned Physician: CHIDI PATEL Reviewed and Electronically Signed By: CHIDI PATEL Signed Date: 05/16/2025 08:53 ET Workstation ID: [id number] Transcribed By: Self Edit Transcribed Date: 05/16/2025 08:51 ET DAILY CARE CHECKLIST Length of Stay: 13h 41m VTE Prophylaxis: IV heparin Resuscitation: Full Code - Confirmed IV Access: Peripheral Tubes, Catheters, Devices: None PCP: Peyman Boss MD Disposition: Pending clinical improvement Ernesto Lynch MD 05/16/25 12:27 PM EDT * Donatus Ironuma - 05/16/2025 10:09 AM EDT SPIRITUAL CARE Date/Time:05/16/25 at 10:09 AM EDT Type of Visit: Initial Visit and Apartment Rental Agent Rounding Reason for Visit: Spiritual/Emotional Support Time Spent: 10 Minutes Location: Sacramental Encounters: Spiritual Distress Assessment: Spiritual Assessment/Distress Spiritual Care Assessment: Assessment: Chayito, was awake, lying down in bed at the time of God. Ecuadorean speaking but said nothing. Was observed getting tearful. Provided supporting and comforting presence. Stella jew listed as Advent, prayed for recovery and good health before leaving the room. Intervention: NE Spiritual Care Interventions : provided support, provided silent and supportive presence, and provided prayer Outcomes: Plan of Care: Visit as needed *Reference: Spiritual Distress Assessment Tool: The SDAT is a clinical tool used by chaplains to identify unmet spiritual and emotional needs that can impact Goals of Care in the following categories: Spiritual Distress Assessment Legend Spiritual Needs Related Questions Meaning Are you having difficulties coping with what is happening to your now? Does your hospitalization have any repercussions on the way you live usually? Transcendence Do you have a particular jew, stella, or spirituality? Is your jew/spirituality/stella challenged by what is happening to you now? Values Do you think that the health professionals caring for you know you well enough? Do you feel that you are participating in the decisions made about your care? Psycho-Social Identity Do you have any worries or difficulties regarding your family or other persons close to you? Do you feel lonely? Do you have links to your stella community? SCALE 0= no evidence of unmet spiritual needs 1= some evidence of unmet spiritual needs 2= substantial evidence of unmet spiritual needs 3= evidence of severe unmet spiritual needs * Candy Patten RN - 05/15/2025 9:23 PM EDT ED RN HANDOFF (All [place] Below Must Be Completed) Reason/Diagnosis for Admission: Acute metabolic encephalopathy Type of Admission: [] Medsurg, [x] Telemetry Already in a Hospital Bed: [] Yes / [] No Room Considerations/Precautions (ex: fever, diarrhea, or any infectious concerns): [] Yes / [] No Continuous Miner: [x] Yes / [] No If YES, Cardiac Rhythm: [] NSR, [] SB, [] ST, [x] A-FIB, [] A-Flutter, [] Pacemaker, [] 1st Degree HB, [] 2nd Degree HB, [] 3rd Degree HB Reason for Continuous Miner: VS: Visit Vitals BP 128/74 (BP Location: Left arm, Patient Position: Lying) Pulse 108 Temp 36 ??C (96.8 ??F) (Oral) Resp 18 Ht 1.575 m (62 ) Wt 49.9 kg (110 lb) SpO2 95% BMI 20.12 kg/m?? OB Status Postmenopausal Smoking Status Never Assessed BSA 1.48 m?? Current Mental Status: A/O x []4, [x]3, []2, []1 Current Ambulation Status: IV Access: [x] Yes / [] No Field IV present: [] Yes / [] No Hx of Violence: [] Yes / [] No / [x] Unknown Fall Risk:[x] Yes / [] No Yellow Bracelet Applied [] Yes / [] No Yellow Socks Applied [] Yes / [] No Patient Belongings inventoried and BL completed: [x] Yes / [] No Patient belongings stored in the security closet: [] Yes (If Yes please supply Security bag #): [] No Patient Medications stored in Pharmacy: [] Yes (If Yes please supply Medication Security bag #): [] No ED Summary of Care Pt presents with general weakness and confusion/lethargy. Recent diagnosis diagnosis of multiple myeloma bony mets in the CT scan. EKG, labs done. 1000 ml nacl given @ ED. Submitted by and Phone Extension: Candy [phone] * Ivania Vidal MD - 05/15/2025 6:26 PM EDT Summary Pt with generalized weakness, confusion, decreased alertness over last few days. Started after taking new medication: tramadol. Workup in progress. Signed out to oncoming physician To Do Labs CT brain UA * Ash Guerrero RN - 05/15/2025 4:32 PM EDT BIBA from home, daughter called for decreased ambulatory status and increased weakness. Pt began taking tramadol Tuesday with subsequent AMS (ex. unable to state birthday). Hx breast cancer, pt went to dr for leg pain, dr concerned for cancerous spots on bones. * Ivania Vidal MD - 05/15/2025 4:22 PM EDT HPI Chief Complaint Patient presents with Weakness - Generalized Chayitozheng Klein is a 79 y.o. female with history of breast cancer, atrial fibrillation who presents with general weakness and confusion/lethargy. The patient arrived escorted by family member (daughter). Primarily Ecuadorean speaking and assisted with Ecuadorean Tax Form Preparer. - Symptoms began 5 days prior to arrival. Onset was sudden, and symptoms are waxing/waning. - Severity: moderate - Timing: intermittent - Context: pt was given new medicine: tramadol on the day symptoms started due to ongoing hip pain. Recent workup with multiple bony lesions suspected to be metastasis vs myeloma. PCP prescribed tramadol to attempt to help with pain. Daughter noticed pt seemed weaker, less alert, less mobile than usual. - Symptoms are associated with attempting to get up, needing more assistance to walk, feed herself,bathe and taking medications than usual. - Symptoms are not associated with fever. - Improved by nothing. - Not improved by anything. - Risk factors: new medications She has also recently been treated for a nonhealing leg wound with weekly wraps/unna boot. Last tramadol dose earlier this morning. Pt denies pain at this time. Luis Coma Scale Score: 14 Patient History No past medical history on file. Past Surgical History: Procedure Laterality Date US GUIDED BREAST BIOPSY RIGHT Right 2020 No family history on file. Social History Tobacco Use Smoking status: Not on file Smokeless tobacco: Not on file Substance Use Topics Alcohol use: Not on file Drug use: Not on file Review of Systems Review of Systems Unable to perform ROS: Mental status change Constitutional: Positive for activity change and appetite change. Negative for fever. Genitourinary: Negative for difficulty urinating. Musculoskeletal: Positive for arthralgias. Psychiatric/Behavioral: Positive for confusion. Physical Exam ED Triage Vitals [05/15/25 1728] Temp Heart Rate Resp BP 36.4 ??C (97.6 ??F) 110 22 133/83 SpO2 Temp Source Heart Rate Source Patient Position 95 % Oral Monitor Sitting BP Location FiO2 (%) Left arm -- Physical Exam Constitutional: Appearance: She is normal weight. Comments: At times alert, opens eyes and speaks, at times appears less alert/falls asleep. HENT: Head: Normocephalic and atraumatic. Mouth/Throat: Mouth: Mucous membranes are dry. Eyes: Extraocular Movements: Extraocular movements intact. Cardiovascular: Rate and Rhythm: Tachycardia present. Rhythm irregular. Pulmonary: Effort: Pulmonary effort is normal. Abdominal: General: Abdomen is flat. Palpations: Abdomen is soft. Tenderness: There is no abdominal tenderness. Musculoskeletal: General: No swelling. Normal range of motion. Cervical back: Neck supple. Skin: General: Skin is warm and dry. Comments: Healing skin wounds on left anterior and lateral/posterior lower leg. Neurological: Mental Status: She is disoriented. Cranial Nerves: No cranial nerve deficit. Motor: Weakness present. Comments: Generalized motor weakness symmetric through all 4 extremities. Psychiatric: Behavior: Behavior normal. Comments: Limited psych evaluation as pt not answering all questions. ED Course & MDM ED Course as of 05/15/251826May 15, 2025 174 EKG with atrial fibrillation, rate 107, no STEMI, LVH, nonspecific ST/T abnormality. Irregularbaseline. Prior EKG [AK] 1813 Patient lethargic/confusion with history of breast cancer. Possibly medication side effect of tramadol workup in progress [MZ] [address] Dickey. [AK] ED Course User Index [AK] Ivania Vidal MD [MZ] Terell Dickey MD Medical Decision Making Amount and/or Complexity of Data Reviewed ECG/medicine tests: independent interpretation performed. Decision-making details documented in ED Course. Procedures Ivania Vidal MD 05/15/25 174 Ivania Vidal MD 05/15/251826 * Terell Dickey MD - 05/15/2025 4:22 PM EDT HPI Chief Complaint Patient presents with ??? Weakness - Generalized HPI Luis Coma Scale Score: 14 Patient History No past medical history on file. Past Surgical History: Procedure Laterality Date ??? US GUIDED BREAST BIOPSY RIGHT Right 2020 No family history on file. Social History Tobacco Use ??? Smoking status: Not on file ??? Smokeless tobacco: Not on file Substance Use Topics ??? Alcohol use: Not on file ??? Drug use: Not on file Review of Systems Review of Systems Physical Exam ED Triage Vitals [05/15/25 1728] Temp Heart Rate Resp BP 36.4 ??C (97.6 ??F) 110 22 133/83 SpO2 Temp Source Heart Rate Source Patient Position 95 % Oral Monitor Sitting BP Location FiO2 (%) Left arm -- Physical Exam ED Course & MDM ED Course as of 05/15/252110May 15, 2025 1741 EKG with atrial fibrillation, rate 107, no STEMI, LVH, nonspecific ST/T abnormality. Irregularbaseline. Prior EKG [AK] 1813 Patient lethargic/confusion with history of breast cancer. Possibly medication side effect of tramadol workup in progress [MZ] [address] Dickey. [AK] 2033 Calcium(!): 12.1 Elevated Calcium level will give IV fluid [MZ] ED Course User Index [AK] Ivania Vidal MD [MZ] Terell Dickey MD Clinical Impressions as of 05/15/252110 Acute metabolic encephalopathy Hypercalcemia Medical Decision Making 79 y.o. female with history of breast cancer, atrial fibrillation who presents with general weakness and confusion/lethargy. Recent diagnosis diagnosis of multiple myeloma bony mets in the CT scan done on 04/26/2024 brought in by daughter for increased confusion for last 5 days with poor oral intake patient had elevated calcium level of 11.5 on 04/25 still waiting for the chemistry likely for metabolic cause/hypercalcemia for change in mental status give IV fluids plan for admission Procedures Terell Dickey MD 05/15/252001 Terell Dickey MD 05/15/252110 documented in this encounter H&P Notes * Amarjit Ayala DO - 05/24/2025 1:55 PM EDT Critical Care History & Physical Note History Of Present Illness (include Chief Complaint): Chayito Klein is a 79 y.o.,female presenting with weakness and altered mental status. 05/15 hospitalist admit note: Mrs. Rafael Klein is a 79-year-old Ecuadorean speaking female with PMH breast cancer follows with Dr. Joseph, Hypertension, Hyperlipidemia, HFrEF, COPD, paroxysmal atrial fibrillation on eliquis, amongst others seen today with educational interpreter and family for complaint of altered mental status. Patient was only oriented to person. Patient send reports that started a few days ago and she started tramadol for pain. She states she has not been eating or drinking as much she has had no appetite. She also denies any chest pain, shortness of breath, nausea or vomiting, abdominal pain, dysuria. She has not been febrile at home. She did have a bowel movement yesterday but her da ughter reports she has been constipated prior to this. She endorses that she has pain all over but is probably located in the lower back extending into her hips. She does endorse weakness and fatigueinto the ambulates with use of a cane but has been using a walker and is now not ambulating secondary to her ongoing generalized weakness. She had an outpatient CT scan on 04/26 with findings concerning for multiple myeloma versus metastatic disease. Given these findings and her confusion her primarycare decided to send her in for further evaluation. Of note her daughter reports that she has been taking Entresto for over 1 year now and she has been in contact with her primary care as well as line out man to determine if she should restart his medication or not. She still takes furosemide and spironolactone. Vitals are as follows: 36.4, pulse of 110, respiratory rate 22, bp of 133/83, pulse ox 95% on room air. Labs are notable for calcium of 12.1, albumin of 2.1, AST of 123, alk phos of 359, BNP of 199, CRP of greater than 190, oxycodone 13.8, INR 1.7. EKG 107 bpm atrial fibrillation. Chest x-ray pending formal read appears to show no pulmonary edema or pneumonia. Brain Ct showed no acute intracranial findings. Patient was given 1 L normal saline in the ED. Patient be transferred to the care of staff further management of their acute metabolic encephalopathy, hypercalcemia, multiple myeloma versus metastatic disease. 05/24 ICU admit note: Ms. Baig was admitted by the hospitalist service on 05/15, found to be hypercalcemic. She was diagnosed with metastatic breast cancer as the cause of her hypercalcemia. Hypercalcemia was treated and mental status improved. Please see the hospitalist dictated history and physical for the full details regarding her past medical, surgical, social histories. Please see hospitalist notes and linux consultant notes for details regarding hospital course. Chart, labs, studies reviewed in detail. I was asked by Dr Molina to evaluate Ms. Rafael Klein for ICU transfer in the setting of hypotension and worsening renal function, dialysis planned for tomorrow. The patient has had variable blood pressures dropping into the 80s over the course of the day today. No fevers or chills. Reports chest pain and back pain as well as abdominal pain. No dizziness or lightheadedness. Daughter is healthcare proxy. Patient full code. Patient transferred to the ICU for hemodynamic monitoring during initiation of dialysis, planned for tomorrow. Review of Systems As noted above and otherwise negative x 9 systems reviewed. Past Medical History: She has no past medical history on file. Surgical History: She has a past surgical history that includes us guided breast biopsy right (Right, 2020). Family History: family history is not on file. Social History: She reports that she has never smoked. She has never used smokeless tobacco. She reports that she does not currently use alcohol. She reports that she does not use drugs. Allergies: Patient has no known allergies. Home Medications: Prescriptions Prior to Admission[1] Last Recorded Vitals: Blood pressure (!) 114/92, pulse (!) 145, temperature 36.4 ??C (97.5 ??F), temperature source Oral,resp. rate 20, height 1.575 m (62 ), weight 62.2 kg (137 lb 1.6 oz), SpO2 94%. Physical Exam Constitutional: Comments: Elderly female. Sitting upright in bed. No acute distress. HENT: Head: Normocephalic. Mouth/Throat: Mouth: Mucous membranes are dry. Eyes: Extraocular Movements: Extraocular movements intact. Pupils: Pupils are equal, round, and reactive to light. Cardiovascular: Rate and Rhythm: Tachycardia present. Rhythm irregular. Pulses: Normal pulses. Heart sounds: Normal heart sounds. Pulmonary: Effort: Pulmonary effort is normal. Breath sounds: Normal breath sounds. Abdominal: General: Abdomen is flat. Bowel sounds are normal. Palpations: Abdomen is soft. Musculoskeletal: General: No swelling or tenderness. Cervical back: Normal range of motion. No rigidity. Right lower leg: Edema present. Left lower leg: Edema present. Comments: Chronic venous stasis changes bilaterally. Skin: General: Skin is warm and dry. Capillary Refill: Capillary refill takes 2 to 3 seconds. Neurological: General: No focal deficit present. Psychiatric: Mood and Affect: Mood normal. Relevant Results: Reviewed. Assessment/Plan Principal Problem: Acute metabolic encephalopathy Active Problems: Hypercalcemia Malignancy (CMS/HCC V24, CMS/HCC V28) Severe protein-calorie malnutrition (CMS/HCC V24) Hypotension This is an 79-year-old female with metastatic breast cancer admitted with confusion and weakness, found to be hypercalcemic. Hypercalcemia treated. Ruled out for myeloma. Hospital course complicated by worsening ZEN requiring hemodialysis and hypotension. Patient transferred to the ICU for anticipation of PermCath placement tomorrow with initiation of dialysis. Concern is for hypotension. Neuro: Continue on oxycodone for pain. Brain CT negative on admission. Check B12, folate, RPR, TSH. CV: Blood pressure has been somewhat labile. History of heart failure with reduced ejection fraction. Repeat echo ordered. Pulm: Stable. GI: Diet as tolerated. Renal: Worsening ZEN. Got Lokelma. Repeat electrolytes later today. Dialysis planned for tomorrow. IR consulted for PermCath. ID: Mild leukocytosis. UA grossly positive on admission. No culture sent. Got 1 dose of ceftriaxoneon 05/20. Repeat UA. Restart ceftriaxone. Endocrine: No role for steroids. Check thyroid studies for completeness sake. Hypercalcemia mediated by bone mets. Improved after zoledronic acid on 05/16. Repeat ionized calcium in the morning. Hematology/oncology: Dr. Joseph following. Continue tamoxifen. Proph: Hold off on systemic anticoagulation as patient was on Eliquis, procedure planned for tomorrow. No role for PPI. Code: Full code. Daughter is listed next of kin. Disp: ICU level of care for ZEN requiring HD and hypotension. Critical care time spent evaluation management of this patient is 45 minutes. [1] Medications Prior to Admission Medication Sig Dispense Refill Last Dose/Taking Rocklatan 0.02-0.005 % drops Administer 1 drop into both eyes 1 (one) time each day in the evening.Taking sacubitriL-valsartan (ENTRESTO) 24-26 mg per tablet Take 1 tablet by mouth 2 (two) times a day. Taking traMADoL (ULTRAM) 50 mg tablet Take 1 tablet (50 mg total) by mouth every 8 (eight) hours if neededfor moderate pain. Max Daily Amount: 150 mg Taking As Needed acetaminophen (TYLENOL) 325 mg tablet Take 2 tablets (650 mg total) by mouth every 6 (six) hours ifneeded. apixaban (ELIQUIS) 5 mg tablet Take 0.5 tablets (2.5 mg total) by mouth 2 (two) times a day. cholecalciferol (VITAMIN D-3) 50 mcg (2,000 unit) capsule Take by mouth. (Patient not taking: Reported on 05/15/2025) Not Taking digoxin (LANOXIN) 125 mcg (0.125 mg) tablet Take by mouth. docusate sodium (COLACE) 100 mg capsule Take 100 mg by mouth 2 times daily. (Patient not taking: Reported on 05/15/2025) Not Taking fluticasone propionate (FLONASE) 50 mcg/actuation nasal spray 2 Sprays by Each Nare route daily. furosemide (LASIX) 40 mg tablet Take 0.5 tablets (20 mg total) by mouth 1 (one) time each day. gabapentin (NEURONTIN) 100 mg capsule Take 1 capsule (100 mg total) by mouth. ipratropium/albuterol sulfate (COMBIVENT INHL) Inhale into the lungs. (Patient not taking: Reportedon 05/15/2025) Not Taking letrozole (FEMARA) 2.5 mg tablet TAKE ONE TABLET BY MOUTH EVERY DAY 90 tablet 3 metoprolol succinate (TOPROL-XL) 200 mg 24 hr tablet Take 1 tablet (200 mg total) by mouth 1 (one) time each day. potassium chloride (KLOR-CON M10) 10 mEq CR tablet Take 2 tablets (20 mEq total) by mouth 1 (one) time each day. rosuvastatin (CRESTOR) 40 mg tablet Take 40 mg by mouth daily. spironolactone (ALDACTONE) 25 mg tablet Take 0.5 tablets (12.5 mg total) by mouth. tamsulosin (FLOMAX) 0.4 mg 24 hr capsule Take 1 capsule (0.4 mg total) by mouth. * ANY Cervantes - 05/15/2025 9:22 PM EDT Images from the original note were not included. [facility]UT[facility] HISTORY AND PHYSICAL Please contact author [ANY Cervantes] via [employer]. Patient: Chayito Klein Admission Date/Time: 05/15/2025 4:32 PM : 1945 [79 y.o.] Patient's PCP: Peyman Boss MD Attending Provider: Jhoan Sanz MD CHIEF COMPLAINT Altered mental status HISTORY OF PRESENT ILLNESS Mrs. Rafael Klein is a 79-year-old [place]cuadorean speaking female with PMH breast cancer follows with Dr. Joseph, Hypertension, Hyperlipidemia, HFrEF, COPD, [facility] others seen today with educational interpreter and family for complaint of altered mental status. Patient wasonly oriented to person. Patient send reports that started a few days ago and she started tramadol for pain. She states she has not been eating or drinking as much she has had no appetite. She also denies any chest pain, shortness of breath, nausea or vomiting, abdominal pain, dysuria. She has not been febrile at home. She did have a bowel movement yesterday but her daughter reports she has been constipated prior to this. She endorses that she has pain all over but is probably located in the lower back extending into her hips. She does endorse weakness and fatigue into the ambulates with use of a cane but has been using a walker and is now not ambulating secondary to her ongoing generalizedweakness. She had an outpatient CT scan on 04/26 with findings concerning for multiple myeloma versusmetastatic disease. Given these findings and her confusion her primary care decided to send her in for further evaluation. Of note her daughter reports that she has been taking Entresto for over 1 year now and she has been in contact with her primary care as well as line out man to determine if she should restart his medication or not. She still takes furosemide and spironolactone. Vitals are as follows: 36.4, pulse of 110, respiratory rate 22, bp of 133/83, pulse ox 95% on room air. Labs are notable for calcium of 12.1, albumin of 2.1, AST of 123, alk phos of 359, BNP of 199, CRP of greater than 190, oxycodone 13.8, INR 1.7. EKG 107 bpm atrial fibrillation. Chest x-ray pending formal read appears to show no pulmonary edema or pneumonia. Brain Ct showed no acute intracranial findings. Patient was given 1 L normal saline in the ED. Patient be transferred to the care of staff further management of their acute metabolic encephalopathy, hypercalcemia, multiple myeloma versus metastatic disease. Review of Systems Review of Systems partial review of systems negative, difficult given patients altered mental status MEDICAL HISTORY Past Medical History History reviewed. No pertinent past medical history. Past Surgical History Past Surgical History: Procedure Laterality Date US GUIDED BREAST BIOPSY RIGHT Right 2020 Social History Family History family history is not on file. Allergies has No Known Allergies. Home Medications No current facility-administered medications on file prior to encounter. Current Outpatient Medications on File Prior to Encounter Medication Sig Dispense Refill Rocklatan 0.02-0.005 % drops Administer 1 drop into both eyes 1 (one) time each day in the evening. sacubitriL-valsartan (ENTRESTO) 24-26 mg per tablet Take 1 tablet by mouth 2 (two) times a day. traMADoL (ULTRAM) 50 mg tablet Take 1 tablet (50 mg total) by mouth every 8 (eight) hours if neededfor moderate pain. Max Daily Amount: 150 mg acetaminophen (TYLENOL) 325 mg tablet Take 2 tablets (650 mg total) by mouth every 6 (six) hours ifneeded. apixaban (ELIQUIS) 5 mg tablet Take 0.5 tablets (2.5 mg total) by mouth 2 (two) times a day. cholecalciferol (VITAMIN D-3) 50 mcg (2,000 unit) capsule Take by mouth. (Patient not taking: Reported on 05/15/2025) digoxin (LANOXIN) 125 mcg (0.125 mg) tablet Take by mouth. docusate sodium (COLACE) 100 mg capsule Take 100 mg by mouth 2 times daily. (Patient not taking: Reported on 05/15/2025) fluticasone propionate (FLONASE) 50 mcg/actuation nasal spray 2 Sprays by Each Nare route daily. furosemide (LASIX) 40 mg tablet Take 0.5 tablets (20 mg total) by mouth 1 (one) time each day. gabapentin (NEURONTIN) 100 mg capsule Take 1 capsule (100 mg total) by mouth. ipratropium/albuterol sulfate (COMBIVENT INHL) Inhale into the lungs. (Patient not taking: Reportedon 05/15/2025) letrozole (FEMARA) 2.5 mg tablet TAKE ONE TABLET BY MOUTH EVERY DAY 90 tablet 3 metoprolol succinate (TOPROL-XL) 200 mg 24 hr tablet Take 1 tablet (200 mg total) by mouth 1 (one) time each day. potassium chloride (KLOR-CON M10) 10 mEq CR tablet Take 2 tablets (20 mEq total) by mouth 1 (one) time each day. rosuvastatin (CRESTOR) 40 mg tablet Take 40 mg by mouth daily. spironolactone (ALDACTONE) 25 mg tablet Take 0.5 tablets (12.5 mg total) by mouth. tamsulosin (FLOMAX) 0.4 mg 24 hr capsule Take 1 capsule (0.4 mg total) by mouth. [DISCONTINUED] gabapentin (NEURONTIN) 300 mg capsule Take 300 mg by mouth 3 times daily. [DISCONTINUED] lisinopriL (PRINIVIL,ZESTRIL) 5 mg tablet Take 5 mg by mouth daily. [DISCONTINUED] METOPROLOL SUCCINATE ORAL Take by mouth. [DISCONTINUED] sotaloL (BETAPACE) 80 mg tablet Take 80 mg by mouth 2 times daily. [DISCONTINUED] warfarin sodium (COUMADIN ORAL) Take by mouth. OBJECTIVE Vitals Visit Vitals BP (!) 122/97 (BP Location: Left arm, Patient Position: Lying) Pulse 108 Temp 36.6 ??C (97.8 ??F) (Temporal) Resp 18 Temp (24hrs), Av.3 ??C (97.4 ??F), Min:36 ??C (96.8 ??F), Max:36.6 ??C (97.8 ??F) Body mass index is 20.12 kg/m??. No results found for: PTWT , PTHT Physical Examination Physical Exam General: older female sitting upright in the stretcher, in no acute distress, calm Skin: Appropriate tone for ethnicity, warm, dry, HEENT: normocephalic, atraumatic, sclera nonicteric, PERRL, could not follow commands to assess extraocular movements, tongue is midline, dry mucous membranes, uvula midline, Pulmonary: Lungs clear to auscultation in all lung cagle bilaterally. No wheezes rales or rhonchi appreciated, no respiratory distress, no accessory muscle use. Cardiac: S1 and S2 appreciated, no murmurs, rubs or gallops, no peripheral edema Abdomen: Soft, non-tender, nondistended, no guarding or rebound tenderness appreciated. Bowel sounds normoactive. MSK: Full range of motion in upper and lower extremities with strength 2/5 and equal bilaterally dorsiflexion, plantarflexion, strength. Neuro: Alert and oriented to person alone, she does not know where she is the month or the year andcannot tell me her birthday other than July. Otherwise cranial nerves 2-12 intact. No focal neurological deficits appreciated. No facial droop. Psych: Normal affect. ECG: Was ECG Performed? Yes . Sinus Rhythm? No. Signs of acute ischemia? No Further Interpretation: EKG 107 bpm atrial fibrillation. LAB RESULTS (most recent) HEMATOLOGY Lab Results Component Value Date WBC 13.8 (H) 05/15/2025 HGB 11.7 05/15/2025 HCT 40.2 05/15/2025 MCV 90.7 05/15/2025 PLT 444 (H) 05/15/2025 CHEMISTRY Lab Results Component Value Date GLUCOSE 220 (H) 05/15/2025 NA 133 05/15/2025 K 4.7 05/15/2025 CO2 33 (H) 05/15/2025 CL 93 (L) 05/15/2025 BUN 24 05/15/2025 CREATININE 0.93 05/15/2025 EGFR 62 05/15/2025 CALCIUM 12.1 (H) 05/15/2025 ANIONGAP 7 05/15/[address] Head wo Contrast Final Result 1. No acute intracranial findings. This document has been electronically signed by: Andi Ann MD on 05/15/2025 20:01:27 XR Chest 1 View (Results Pending) XR Humerus 2+ Views Right (Results Pending) ASSESSMENT & PLAN Acute metabolic encephalopathy Hypercalcemia -Vitals are stable -Labs are notable for calcium of 12.1(corrected 13.6), albumin of 2.1, AST of 123, alk phos of 359,BNP of 199, CRP of greater than 190, oxycodone 13.8, INR 1.7. -Chest x-ray pending formal read appears to show no pulmonary edema or pneumonia. -Brain Ct showed no acute intracranial findings. Patient was given 1 L normal saline in the ED. -continue with ivf, will trend tonight and in the morning -suspect altered mentation secondary to hypercalcemia, could also be from tramadol -ua ordered -am labs Multiple myeloma vs metastatic disease -she had outpatient ct scan on 04/26 with findings No acute intrathoracic or abdominopelvic pathology, no mass or lymphadenopathy, multiple lucent lesions noted including within the right humeral shaft, left lateral ninth rib, S1 in all 4 vertebral, this finding can be seen with metastatic disease or multiple myeloma. (listed under media tab for reference) -will consult oncology, awaiting labs including immunoglobulins, kappa lambda free light chains, protein electrophoresis Elevated lfts -she was noted to have elevated ast 123, alk phos 359 -ct imaging showed Diffuse low-attenuation throughout the liver parenchyma consistent hepatic steatosis, no evidence of a suspicious lesion . Her ast in February was normal and her alk phos was 180. check hepatitis panel, will trend lfts in the morning, reduced prn tylenol ordered Paroxysmal atrial fibrillation Secondary hypercoagulable state -continue metoprolol, hold eliquis Breast cancer -diagnosed in [address] Joseph, s/p right partial mastectomy, declined adjuvant radiation -continue letrozole -would attempt to hold off on tramadol unless she is very uncomfortable, as it may be contributing to her encephalopathy HFrEF -last echo on file was from 2021, ef 25-30%, grade III diastolic dysfunction with severe restrictive physiology, moderate mitral and tricuspid valve regurgitation -daughter reports she has been off entresto for 1 year and is going back and forth with cardiology and pcp regarding continuing this medication, on lasix 20mg daily will hold for now Hypertension -hold spironolactone Hyperlipidemia -continue statin Admission checklist [x] Code status: Full Code - Confirmed [x] VTE Prophylaxis: SCD, hold eliquis as she may need biopsy pending further results [x] Diet order on admission: Dietary Orders (From admission, onward) Start Ordered 05/15/252112 Adult diet [facility]; General; Regular Diet effective now Question Answer Comment Location [facility] Diet Type (req) General General Diet Regular 05/15/252111 [x] Lines, tubes, drains: IV access [x] Medication reconciliation Health Care proxy with Phone number, daughter Maggie Donald, , present at bedside and updated on plan of care Cosigned by Jhoan Sanz MD at 05/17/2025 6:50 AM EDT Associated attestation - Jhoan Sanz MD - 05/17/2025 6:50 AM EDT This is a split/shared visit with ANY Cervantes. I personally performed the medical decision making (MDM) for the care of this patient on 05/15/2025 as documented below 79 year-old female with history of invasive ductal carcinoma of the right breast status post partial mastectomy and adjuvant radiation currently on letrozole, COPD, heart failure with reduced ejection fraction LVEF 25-30%, paroxysmal atrial fibrillation on apixaban anticoagulation, hypertension, hyperlipidemia presents acute metabolic encephalopathy and hypercalcemia. After discussion with the ER provider the patient will be admitted to the hospital. The patient is hypercalcemic with a corrected calcium of 13.1 mg/dL. She is noted to have an elevated protein gap with her total protein at 8.6 g/dL and albumin at 2.1 g/dL. A radiolucency is noted in the right humerus on her chest x-ray. She had a recent outpatient CT scan that also reported lytic lesions in her right humerus, lumbar spine, and rib cage concerning for multiple myeloma versus metastatic disease from her breast cancer. We will check a serum protein electrophoresis, kappa:lambda light chain ratio, serum immunoglobulin levels, beta-2 microglobulin level. Her apixaban is being held in anticipation of possible biopsy of one of her bone lesions. Medical oncology will consulted for assistance in her ongoing work up. She was given a trial of fluid resuscitation for treatment of the hypercalcemia. Fluid resuscitation may be limited by her heart failure. If her calcium remains elevated despite IV fluids, zoledronic acid may be administered, The patient's encephalopathy is likely secondary to her hypercalcemia. Management of additional chronic medical problems as below. Jhoan Sanz MD 05/17/25 6:36 AM EDT documented in this encounter Procedure Notes * ANY Islas - 05/27/2025 4:36 PM EDT INDICATIONS: HD catheter TECHNIQUE: Patient was brought to angiography suite placed in a supine position. Ultrasound imagingdemonstrates venous patency. The patient's right neck was assessed and subsequently prepped and draped in the usual and sterile fashion. Maximum sterile barrier technique was used. A timeout was performed. 2% lidocaine was used for skin anesthesia. Moderate intravenous sedation was initiated and maintained for approximately 30 minutes utlizing 0.5mg Versed and 25mcg Fentanyl while the patient wasindependently monitored by the radiology nurse under the supervision of the performing provider. Under continuous ultrasound guidance, a micropuncture needle was advanced into the vein. There was dark venous return, a 0.018 wire was advanced centrally. A 3-5 sheath dilator was then advanced overthe wire. The inner dilator and wire were removed and an 0.035 wire was advanced centrally. Attention was then turned to the tunnel. Additional LIDOCAINE with EPINEPHRINE was injected in the superficial soft tissues. Small stab incision was made. A tunneler device was utilized and the catheter was pulled through to the access site. Serial dilatation of the access site was then performed and a peel-away sheath was positioned. Subsequently, the catheter was advanced through the peel-away sheath which was removed. Imaging demonstrates appropriate positioning of the catheter. Both lumens were assessed demonstrating excellent pull of blood and flush well. Both lumens were then flushed with the appropriate volume of heparin. The puncture site was closed with Dermabond. The catheter was then secu red to the skin with 2-0 nylon suture and a sterile bandage was applied The patient tolerated well with no immediate complications. There was less than 5ml blood loss. IMPRESSION: Right internal jugular vein HD catheter placement. 23 cm tip to cuff catheter utilized. Catheter is available for immediate use. * Adriana Mitchell RN - 05/24/2025 6:03 PM EDT Images from the original note were not included. MidLine Insertion Procedure Note Indications: Frequent blood draws Procedure: Insertion of a Bard, 4 Welsh, single lumen Power Midline (ML), into the left brachial vein. LOT #: [id number] Exp: 2025-08-21 Procedure Details Verbal consent given. Maximum sterile technique was used including: hand hygiene, gloves, gown, sterile drape, mask, and cap. Chloreprep scrub at insertion site and allowed to dry. Lidocaine: 1.5 mlsinjected SC. ML catheter inserted in left brachial vein. Smooth insertion. ML cut to 15 cm and inserted 15 cm per hospital protocol, with 0 cm exposed. Positive blood return. ML flushes without issues. Guide wires and sharps discarded. Biopatch, catheter stabilization device (stat lock), and dressing applied. End caps applied to microclave connector. No complications observed. Findings: Catheter cut to 15 cm and inserted 15 cm, with 0 cm exposed, into the left brachial vein. Upper arminsertion circumference is 30 cm. There were no changes to vital signs. Catheter was flushed with 20 mls of NS. Patient tolerate procedure well. No complications observed. CVR: * Rahul Loyola MD - 05/20/2025 3:46 PM EDT Interventional Radiology Brief Postprocedure Note Attending: Desmond Molina MD Pre-Procedure Diagnosis: osseous metastatic disease Post-Procedure Diagnosis: Same as Pre-Procedure Diagnosis Description of procedure: ct guided biopsy of left iliac crest bone lesion Performing Provider: Rahul Loyola MD Staff Role Rahul Loyola MD Radiologist Maribel Washington Order Entry Specialist Panchito Chen RN Radiology Nurse Berhane Ramires RN CV Invasive Nurse Cinthia Isaac Order Entry Specialist Anesthesia: Conscious Sedation Significant Findings: None Complications: None Estimated Blood Loss: none Medications (Filter: Administrations occurring from 1146 to 1237 on 05/20/25) As of 05/20/25 1237 fentaNYL (PF) (SUBLIMAZE) injection (mcg) Total dose: 25 mcg Date/Time Rate/Dose/Volume Action 05/20/25 1212 25 mcg Given midazolam (VERSED) injection (mg) Total dose: 0.5 mg Date/Time Rate/Dose/Volume Action 05/20/25 1212 0.5 mg Given lidocaine (XYLOCAINE) 1 % injection (mL) Total volume: 5 mL Date/Time Rate/Dose/Volume Action 05/20/25 1234 5 mL Given Specimens Source Type Bone Bone Description: left iliac Bone Bone Final Radiology report with images in PACS to follow. The patient tolerated the procedure well without incident or complication and is in stable condition. * Rahul Loyola MD - 05/20/2025 3:45 PM EDT Interventional Radiology Preprocedure Note Indication for procedure: The primary encounter diagnosis was Acute metabolic encephalopathy. Diagnoses of Hypercalcemia and Cardiomyopathy, unspecified type (CMS/HCC V24, CMS/HCC V28) were also pertinent to this visit. Relevant review of systems: NA Relevant Labs: Lab Results Component Value Date CREATININE 2.29 (H) 05/20/2025 EGFR 21 (L) 05/20/2025 INR 1.7 05/15/2025 Directed physical examination: Heart and lungs wnl Mallampati: II (hard and soft palate, upper portion of tonsils anduvula visible) ASA Score: ASA 3 - Patient with moderate systemic disease with functional limitations Immediate reassessment prior to sedation: Patient's status reviewed and vital signs assessed; acceptable to perform procedure and proceed to administer sedation as planned. documented in this encounter Consult Notes * Chris Welsh DO - 05/31/2025 10:09 AM EDTAssociated Order(s): IP CONSULT TO GASTROENTEROLOGY INITIAL GI CONSULT CONSULTING PROVIDER: Aminata Le MD REASON FOR CONSULT: Bleeding, anemia HPI: 79-year-old female who I am asked to see for evaluation of GI bleed and anemia. The patient has a background history of metastatic breast cancer, CKD V, hypertension, hyperlipidemia, A-fib on apixaban, anxiety, HFrEF, osteoarthritis. The patient is currently hospitalized for management of multiple active issues. Originally she was found to have acute renal failure presumed to be secondary to ATN/hypotension with very serious electrolyte disturbances were eventually were managed with hemodialysis. In addition, there was some challenges with A-fib with RVR and UTI. This is all in the background of metastatic breast cancer. Overnight, she was noted to have maroon color stools without any true hematemesis or melena. She does have nonspecific and chronic abdominal pains but nothing worsened over the past few days. She didexperience a drop in her H&H from a baseline of approximately 11 to 12 g/dL as of 04/2025 to 6.9g/dL today. Recent CT A/P with IV contrast with evidence of diffuse metastatic disease in the bones but no evidence of GI lesions. ROS: GENERAL: No fever, weight loss, weakness. HEENT: No double vision, blurred vision, sorethroat, nasal discharge, nosebleeds. NECK: No pain, swelling, rashes. RESPIRATORY: No cough, wheezing or shortness of breath CARDIOVASCULAR: No chest pain, leg swelling or palpitations GI:As per HPI section MUSCULOSKELETAL: No joint pain or swelling, back pain. No unexplained myalgias. SKIN: No lesions, rash or itching. The rest of the ROS is negative except as mentioned in the HPI section. PAST MEDICAL HISTORY: As above PAST SURGICAL HISTORY: Past Surgical History: Procedure Laterality Date US GUIDED BREAST BIOPSY RIGHT Right 2020 SOCIAL HISTORY: Social History Tobacco Use Smoking status: Never Smokeless tobacco: Never Substance Use Topics Alcohol use: Not Currently Drug use: Never FAMILY HISTORY: No premature cancers or coagulopathy. MEDICATIONS: Outpatient Medications Marked as Taking for the 05/15/25 encounter (Hospital Encounter) Medication Sig Dispense Refill Rocklatan 0.02-0.005 % drops Administer 1 drop into both eyes 1 (one) time each day in the evening. sacubitriL-valsartan (ENTRESTO) 24-26 mg per tablet Take 1 tablet by mouth 2 (two) times a day. traMADoL (ULTRAM) 50 mg tablet Take 1 tablet (50 mg total) by mouth every 8 (eight) hours if neededfor moderate pain. Max Daily Amount: 150 mg ALLERGIES: No Known Allergies PHYSICAL EXAM: Visit Vitals BP 101/71 Pulse 88 Temp 36.6 ??C (97.9 ??F) Resp 16 Ht 1.575 m (62 ) Wt 81.5 kg (179 lb 10.8 oz) SpO2 96% BMI 32.86 kg/m?? OB Status Postmenopausal Smoking Status Never BSA 1.83 m?? APPEARANCE: Ill appearing, someone lethargic. HEART: RRR with normal S1 and S2, no murmurs appreciated LUNG: CTA on anterior exam. Not on supplemental O2. ABDOMEN: Soft, non distended, non tender. RECTAL: Exam deferred EXTREMITIES: Severe LUE edema. NEURO: Aox2 at baseline. SKIN: No rashes. No bruising. No jaundice. LABS: Lab Results Component Value Date WBC 6.4 05/31/2025 HGB 6.2 (LL) 05/31/2025 HCT 19.7 (LL) 05/31/2025 MCV 87.1 05/31/2025 PLT 175 05/31/2025 Lab Results Component Value Date ALT 14 05/30/2025 AST 45 (H) 05/30/2025 ALKPHOS 195 (H) 05/30/2025 BILITOT 0.3 05/30/2025 Lab Results Component Value Date NA 141 05/31/2025 K 3.2 (L) 05/31/2025 CL 102 05/31/2025 CO2 34 (H) 05/31/2025 GLUCOSE 74 05/31/2025 BUN 17 05/31/2025 CREATININE 2.29 (H) 05/31/2025 CALCIUM 7.6 (L) 05/31/2025 PROT 6.2 05/30/2025 ALBUMIN 2.2 (L) 05/30/2025 BILITOT 0.3 05/30/2025 AST 45 (H) 05/30/2025 ALT 14 05/30/2025 URICACID 3.0 (L) 05/15/2025 PHOS 2.0 (L) 05/31/2025 MG 1.8 (L) 05/31/2025 ALKPHOS 195 (H) 05/30/2025 EGFR 21 (L) 05/31/2025 No results found for: LIPASE IMAGING: CT scan reviewed. No abdominal masses but she has diffuse metastatic disease to the bones. IMPRESSION: 1. Acute metabolic encephalopathy 2. Hypercalcemia 3. Cardiomyopathy, unspecified type (CMS/HCC V24, CMS/HCC V28) 4. Edema of right upper arm 5. Malignancy (CMS/HCC V24, CMS/HCC V28) 6. 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 Acute posthemorrhagic anemia 7. Overt GI bleed PLAN: The patient is hemodynamically stable but ill and weak appearing. She is having overt GI bleed witha subacute downtrend in her hemoglobin now requiring PRBC transfusions. In the setting of recent severe hypotension, her bleed likely represents acute colonic ischemia worsened by her chronic anticoagulation. However, she is at risk of other possible culprits such as an acute stress ulcer, bleeding AVMs in the setting of CKD, GAVE, neoplasms, diverticular disease or hemorrhoids. In the meantime, given her active bleed I recommend that we diagnose a source of the bleed before the weekend when decisions are being made. Elevated ALP in the setting of bone metastasis. I had a long and detailed conversation with the patient's daughter over the phone. She made it veryclear and eloquently that she wants her mom to be a full code and to undergo any procedure then he needed to save her life. For that reason, she is requesting that I treat the bleed with all my capacity. She does not want her mom to . Given her advanced age and advanced comorbidities and spread malignancy goals of care discussions need to take place. I recommend a hospice/oncology discussion with the patient and her family. Recommendations: IV PPI twice daily. EGD/flex sig today. Full code according to the patient and her HCP. This will need to be reevaluated. H&H monitoring and transfuse to keep over 7 g/dL. Goals of care discussion with hospice/oncology. No need to trend LFTs daily. Orders Placed This Encounter Procedures Blood Culture, Peripheral Draw #1 Blood Culture, Peripheral Draw #2 CT Head wo Contrast XR Chest 1 View XR Humerus 2+ Views Right CT Chest/Abdomen/Pelvis w Contrast NM Bone/Joint Scan Whole Body IR Bx Bone Trocar/Ndl Deep MR Brain wo and w Contrast XR Abdomen 1 View XR Chest 1 View IR Insert Tunneled CVC wo Port or Pump More 5yrs Left CBC and differential Urinalysis with reflex microscopic and culture B-Type Natriuretic Peptide (BNP) CBC auto differential Urinalysis with reflex microscopic and culture Ponce urine culture tube Protime-INR Digoxin level Comprehensive metabolic panel High Sensitivity CRP Thyroid Stimulating Hormone (TSH) Basic metabolic panel CBC and differential Protein electrophoresis, serum Beta 2 microglobulin, serum Uric acid Lactate dehydrogenase Immunoglobulins IgG, IgA, IgM, IgE Hepatic function panel Hepatitis panel, acute with reflex to confirmation Protein, total [place]-lambda free light chains, quantitative Albumin Basic metabolic panel CBC auto differential Calcium, ionized Parathyroid hormone intact Calcium, ionized Basic metabolic panel Activated Partial Thromboplastin Time - STAT Anti-Xa - STAT Parathyroid hormone related protein Basic metabolic panel Magnesium Activated partial thromboplastin time Digoxin level Extra Tubes Lavender tube Digoxin level Basic metabolic panel Magnesium Extra Tubes Lavender tube Activated Partial Thromboplastin Time - Every 6 Hours Extra Tubes Lavender tube Basic metabolic panel CBC and differential Hepatic function panel Magnesium Basic metabolic panel CBC auto differential Extra Tubes Light blue tube Lavender tube Basic metabolic panel CBC and differential PATHOLOGIST REVIEW PROTEIN ELECTROPHORESIS Activated partial thromboplastin time CBC auto differential Sodium, urine, random Osmolality, urine Creatinine, urine, random Basic metabolic panel CBC and differential CBC auto differential Extra Tubes Light blue tube CBC and differential Basic metabolic panel CBC auto differential Prothrombin Time with INR - STAT Activated Partial Thromboplastin Time - STAT Anti-Xa - STAT Potassium Basic metabolic panel Extra Tubes Lavender tube Heparin and low molecular weight anti Xa level Basic metabolic panel CBC and differential Magnesium Phosphorus CBC auto differential Vitamin D 1,25 dihydroxy Angiotensin converting enzyme Basic metabolic panel CBC and differential Magnesium Hepatic function panel Hepatitis B surface antibody quantitative Hepatitis B surface antigen with reflex to confirmation Vitamin B12 Folate Treponema pallidum antibody with reflex to RPR and particle agglutination Thyroid stimulating hormone with reflex to free t4 and free t3 Cortisol Procalcitonin Urinalysis microscopic only Urinalysis microscopic only Calcium, ionized Phosphorus Prothrombin time with INR Activated partial thromboplastin time Heparin and low molecular weight anti Xa level Heparin and low molecular weight anti Xa level CBC auto differential Magnesium Lactate CBC and differential Calcium, ionized Magnesium Phosphorus Comprehensive metabolic panel Comprehensive metabolic panel Hemoglobin A1c Heparin and low molecular weight anti Xa level Calcium, ionized Magnesium Digoxin level Comprehensive metabolic panel Heparin and low molecular weight anti Xa level Basic metabolic panel Magnesium Phosphorus Calcium, ionized CBC auto differential Heparin and low molecular weight anti Xa level Venous blood gas Basic metabolic panel Magnesium Phosphorus Calcium, ionized Basic metabolic panel Magnesium Phosphorus Calcium, ionized CBC and differential Calcium, ionized Magnesium Phosphorus Venous blood gas Comprehensive metabolic panel CBC auto differential Lactate CBC and differential Calcium, ionized Magnesium Phosphorus Venous blood gas Comprehensive metabolic panel Basic metabolic panel Calcium, ionized Heparin and low molecular weight anti Xa level CBC auto differential Heparin and low molecular weight anti Xa level CBC and differential Calcium, ionized Magnesium Phosphorus Basic metabolic panel Albumin Prothrombin Time with INR - STAT Activated Partial Thromboplastin Time - STAT Basic metabolic panel Calcium, ionized Magnesium Phosphorus Venous blood gas CBC auto differential Basic metabolic panel Calcium, ionized Magnesium Phosphorus Hepatic function panel Procalcitonin CBC and differential CBC auto differential Occult blood stool, guaiac Basic metabolic panel CBC and differential Magnesium Phosphorus CBC auto differential Type and screen Prothrombin time with INR Hemoglobin and hematocrit Adult NPO diet Location: [facility] [place]; Diet: NPO- Except for Medications ACTIVITY As tolerated Notify physician - vital signs Intake and output Maintain IV access Place sequential compression device Patient Safety: Virtual Monitoring for Cardiac Monitoring for Arrhythmia Management Bladder scan Weigh patient Insert Indwelling Urinary Catheter Catheter care per VALERY Prevention Tool Discontinue Indwelling Urinary Catheter per VALERY Prevention Tool Vital Signs (specify frequency) Apply warming blanket Wound dressing Every other day Pressure Injury Buttocks Right Wound dressing q3 days Wound dressing q3 days Pressure Injury Hip Right Wound dressing q3 days Venous Ulcer Tibial Left;Lateral;Outer Target RASS Goal - RASS -1 to +1 Assess sedation level Notify provider if unable to maintain sedation goal at maximum ordered doses Miscellaneous Nursing Order (Specify Details) Miscellaneous Nursing Order (Specify Details) [id number] Notify Physician: Blood Administration Parameters Instructions for Transfusion Reaction Management Full code - Confirmed Inpatient consult to Oncology Inpatient consult to Nutrition Services Inpatient consult to Interventional Radiology Inpatient consult to Nephrology Inpatient consult to Chemical Engineering Technician Inpatient consult to IV Team Wound Care Inpatient Follow-Up Inpatient consult to Cardiology Inpatient consult to IV Team Inpatient consult to Gastroenterology Dietary nutrition supplements Two times daily (BID); [facility] [place]; Standard Oral Supplement PT eval and treat PT eval and treat Oxygen Therapy, Adult - Device: Nasal Cannula; Rate in liters per minute: 0.5 lpm POCT Glucose, blood POCT Glucose, blood POCT Glucose, blood POCT Glucose, blood POCT Glucose, blood POCT Glucose, blood POCT Glucose, blood POCT Glucose, blood POCT Glucose, blood POCT Glucose, blood POCT Glucose, blood POCT Glucose, blood POCT Glucose, blood POCT Glucose, blood POCT Glucose, blood POCT Glucose, blood POCT Glucose, blood POCT Glucose, blood POCT Glucose, blood POCT Glucose, blood POCT Glucose, blood POCT Glucose, blood POCT Glucose, blood POCT Glucose, blood POCT Glucose, blood POCT Glucose, blood POCT Glucose, blood POCT Glucose, blood POCT Glucose, blood POCT Glucose, blood POCT Glucose, blood POCT Glucose, blood POCT Glucose, blood POCT Glucose, blood POCT Glucose, blood POCT Glucose, blood POCT Glucose, blood POCT Glucose, blood POCT Glucose, blood POCT Glucose, blood POCT Glucose, blood POCT Glucose, blood POCT Glucose, blood POCT Glucose, blood POCT Glucose, blood POCT Glucose, blood POCT Glucose, blood POCT Glucose, blood POCT Glucose, blood POCT Glucose, blood POCT Glucose, blood POCT Glucose, blood POCT Glucose, blood POCT Glucose, blood POCT Glucose, blood POCT Glucose, blood POCT Glucose, blood POCT Glucose, blood POCT Glucose, blood ECG 12 lead ECG 12 lead PRN ECG-Annotated Transthoracic echocardiogram (TTE) complete with PRN contrast, bubble, strain, and 3D order panel Prepare RBC: 1 Units, Leukoreduced Insert peripheral IV Saline lock IV Hemodialysis inpatient 2.5 Hours Hemodialysis inpatient 3 Hours Hemodialysis inpatient 3 Hours Hemodialysis inpatient 3 Hours; -2 Admit to Inpatient General Medicine Bed Request Transfer patient to new unit Transfer patient to new unit Tissue exam Transfuse RBC: 1 Units, Leukoreduced Vascular US duplex upper extremity venous right FLEXIBLE SIGMOIDOSCOPY Anesthesia - MAC; [facility] ENDOSCOPY CT HEAD WO CONTRAST XR CHEST 1 VIEW XR HUMERUS 2+ VIEWS RIGHT CT CHEST/ABDOMEN/PELVIS W CONTRAST NM BONE/JOINT SCAN WHOLE BODY IR BX BONE TROCAR/NDL DEEP MR BRAIN WO AND W CONTRAST XR ABDOMEN 1 VIEW XR CHEST 1 VIEW IR INSERT TUNNELED CVC WO PORT OR PUMP MORE 5YRS LEFT ADMIT TO INPATIENT ED TO FLOOR BED REQUEST TRANSFER PATIENT TO NEW UNIT TRANSFER PATIENT TO NEW UNIT ACTIVITY NOTIFY PROVIDER - VITAL SIGNS INTAKE AND OUTPUT MAINTAIN IV ACCESS SEQUENTIAL COMPRESSION DEVICE PATIENT SAFETY: VIRTUAL MONITORING CARDIAC MONITORING BLADDER SCAN INSERT INDWELLING CATHETER CATHETER CARE URINARY CATHETER DISCONTINUE MEASURE WEIGHT VITAL SIGNS APPLY WARMING BLANKET WOUND DRESSING WOUND DRESSING WOUND DRESSING WOUND DRESSING TARGET RASS GOAL NURSING GENERAL ASSESSMENTS AND INTERVENTIONS NOTIFY PROVIDER - INDICATE REASON MISCELLANEOUS NURSING CARE ORDER (SPECIFY) MISCELLANEOUS NURSING CARE ORDER (SPECIFY) [id number] NOTIFY PROVIDER - INDICATE REASON [id number] INSERT PERIPHERAL IV SALINE LOCK IV IP CONSULT TO ONCOLOGY IP CONSULT TO NUTRITION SERVICES IP CONSULT TO INTERVENTIONAL RADIOLOGY IP CONSULT TO NEPHROLOGY IP CONSULT TO OUTSIDE DEALER SALES REPRESENTATIVE IP CONSULT TO IV TEAM WOUND CARE INPATIENT FOLLOW-UP IP CONSULT TO CARDIOLOGY IP CONSULT TO IV TEAM IP CONSULT TO GASTROENTEROLOGY FULL CODE CONFIRMED DIETARY NUTRITION SUPPLEMENTS PT EVAL AND TREAT PT EVAL AND TREAT VAS US DUPLEX UPPER EXT VENOUS RIGHT FLEXIBLE SIGMOIDOSCOPY ADULT NPO DIET . Signatures Board Certified, Gastroenterology and Internal Medicine Gastroenterology and Hepatology Practice [facility] [email or web address] [phone] [place] [address] [address] [place] [address] [email or web address] * Berhane Prater MD - 05/26/2025 10:43 AM EDTAssociated Order(s): IP CONSULT TO CARDIOLOGY Images from the original note were not included. [facility] Cardiology- Cardiology Consultation Note PATIENT NAME: Chayito Klein ([id number]) DATE OF CONSULT: A-fib SUBJECTIVE REASON FOR CONSULTATION: Atrial fibrillation HISTORY OF PRESENT ILLNESS: Chayito Klein is a 79 y.o. female patient with history of heart failure with reduced ejectionfraction, atrial fibrillation, metastatic breast cancer, hypertension, and hyperlipidemia who was initially admitted on 05/15/2025 due to an altered mental status. On admission, the patient was noted to have hypercalcemia. She was admitted for further evaluation. During the hospitalization, the patient has been noted to have worsening renal function. She was ultimately transferred to the ICU. The patient is pending initiation of hemodialysis. The patient has been noted to have uncontrolled heart rates in the setting of her atrial fibrillation. We are asked to evaluate the patient because of this. At the time of my evaluation this morning, the patient was resting comfortably in bed. She denies any chest pain, shortness of breath, palpitations, or dizziness at the time of my evaluation. REVIEW OF SYSTEMS (ROS): Negative except as mentioned in the HPI. PAST MEDICAL HISTORY She has no past medical history on file. PAST SURGICAL HISTORY She has a past surgical history that includes us guided breast biopsy right (Right, 2020). SOCIAL HISTORY Tob: reports that she has never smoked. She has never used smokeless tobacco. ETOH: reports that she does not currently use alcohol. Drug: reports no history of drug use. FAMILY HISTORY She family history is not on file. MEDICATIONS:Current Medications[1] ALLERGIES: She has no known allergies. OBJECTIVE Vitals: 05/26/25 0900 BP: (!) 149/138 Pulse: (!) 116 Resp: 18 Temp: SpO2: 92% Body mass index is 27.22 kg/m??. PHYSICAL EXAMINATION: Constitutional: In no acute distress. Appearance is age appropriate. Head / face: Facial features are normal. Eyes: Sclera are clear bilaterally. Ears / mouth / nose / throat: External nose is noted to be normal. Mouth is normal. Respiratory: Normal inspiration and expiration. Clear to auscultation bilaterally. Cardiac: Irregular rate and rhythm. No murmurs. Abdomen: Positive bowel sounds. Soft and depressible. Nontender Vascular: Radial pulse is normal bilaterally. Ext: Skin temperature is warm to palpation. No edema or cyanosis. Psych: Alert. Awake. LABS: Lactate Order: [id number] Status: Final result Test Result Released: No (inaccessible in MyChart) 0 Result Notes Component Ref Range & Units (hover) 03:59 Lactate 2.3 High ntains abnormal data CBC auto differential Order: [id number] - Part of Panel Order [id number] Status: Final result Test Result Released: No (inaccessible in MyChart) 0 Result Notes Component Ref Range & Units (hover) 03:59 (05/26/25) 1 d ago (05/25/25) 2 d ago (05/24/25) 2 d ago (05/24/25) 3 d ago (05/23/25) 4 d ago (05/22/25) 5 d ago (05/21/25) WBC 10.3 11.0 High 11.9 High 11.9 High 11.6 High 12.6 High 14.9 High RBC 3.30 Low 3.30 Low 3.50 Low 3.50 Low 3.80 3.50 Low 3.40 Low Hemoglobin 8.5 Low 8.7 Low 9.1 Low 9.1 Low 10.1 Low 9.4 Low 9.0 Low Hematocrit 28.9 Low 29.2 Low 31.2 Low 31.2 Low 35.3 33.3 Low 32.1 Low MCV 88.7 89.6 89.7 89.7 92.9 94.6 93.6 MCH 26.1 Low 26.7 Low 26.1 Low 26.1 Low 26.6 Low 26.7 Low 26.2 Low MCHC 29.4 Low 29.8 Low 29.2 Low 29.2 Low 28.6 Low 28.2 Low 28.0 Low RDW 19.9 High 19.7 High 19.4 High 19.4 High 19.4 High 18.8 High 18.4 High Platelets 261 261 260 260 249 269 268 MPV 11.0 10.7 11.1 High 11.1 High 11.2 High 10.9 10.7 NRBC 0.5 0.6 0.6 0.6 0.8 0.5 0.0 NRBC Absolute 0.05 0.07 0.07 0.07 0.09 0.06 0.00 Neutrophils Relative 76.5 78.1 79.6 82.7 84.6 83.6 Lymphocytes Relative 12.1 12.2 11.8 10.1 7.9 6.7 Monocytes Relative 8.4 6.6 6.2 5.3 6.0 8.7 Eosinophils Relative 1.7 1.9 1.3 0.8 0.4 0.0 Basophils Relative 0.3 0.3 0.3 0.3 0.1 0.1 Immature Granulocytes Relative 1.0 0.9 0.8 0.8 1.0 0.9 Neutrophils Absolute 7.88 High 8.59 High 9.43 High 9.58 High 10.63 High 12.42 High Lymphocytes Absolute 1.25 1.34 1.40 1.17 0.99 Low 0.99 Low Monocytes Absolute 0.86 0.72 0.74 0.61 0.75 1.30 High Eosinophils Absolute 0.17 0.21 0.16 0.09 0.05 0.00 Basophils Absolute 0.03 0.03 0.04 0.04 0.01 0.02 Immature Granulocytes Absolute 0.10 High 0.10 High 0.09 High 0.09 High 0.12 High 0.14 High Resulting Agency [facility] Comprehensive metabolic panel Order: [id number] Status: Final result Test Result Released: No (inaccessible in Vantrixhart) 0 Result Notes 2 HM Topics Component Ref Range & Units (hover) 05:33 (05/26/25) 1 d ago (05/25/25) 1 d ago (05/25/25) 1 d ago (05/25/25) 1 d ago (05/25/25) 1 d ago (05/25/25) 2 d ago (05/24/25) Sodium 140 138 139 138 140 140 Potassium 4.0 3.8 4.1 4.2 4.3 5.8 High CM Chloride 106 106 107 107 109 116 High CO2 23 21 21 20 Low 17 Low 15 Low Anion Gap 11 11 11 11 14 High 9 Glucose 104 High 119 High 122 High 155 High 117 High 96 BUN 54 High 59 High 60 High 61 High 61 High 53 High Creatinine 4.80 High 4.92 High 4.93 High 5.00 High 4.91 High 4.52 High eGFR 9 Low 8 Low CM 8 Low CM 8 Low CM 8 Low CM 9 Low CM Comment: Calculation based on the Chronic Kidney Disease Epidemiology Collaboration (CKD-EPI) equation refit without adjustment for race. BUN/Creatinine Ratio 11.3 12.0 12.2 12.2 12.4 11.7 Calcium 8.2 Low 7.9 Low 7.8 Low 7.3 Low 6.9 Low 7.0 Low AST (SGOT) 68 High 76 High 73 High 81 High ALT (SGPT) 22 23 22 21 Alkaline Phosphatase 219 High 221 High 223 High 235 High Total Protein 5.8 Low 6.0 6.3 5.8 Low Albumin 1.8 Low 1.9 Low 2.1 Low 1.5 Low Total Bilirubin 0.3 0.3 0.2 0.2 ntains abnormal data B-Type Natriuretic Peptide (BNP) Order: [id number] Status: Final result Test Result Released: No (inaccessible in Vant[employer]) 0 Result Notes Component Ref Range & Units (hover) 11 d ago BNP 199 High CARDIOVASCULAR TESTING Transthoracic echocardiogram (01/15/2022): Study done at [facility]. Severely reduced left ventricular systolic function with a left ventricular ejection fraction of 25 to 30%. Diffuse hypokinesis with septal akinesis. Severely restricted diastolic dysfunction. Moderate biatrial enlargement. Moderate MR.Moderate TR. ASSESSMENT & PLAN 1. Atrial fibrillation with RVR: -The patient has a history of apparent paroxysmal atrial fibrillation. However, more recently, it seems that her atrial fibrillation has progressed to the persistent stage. For example, during a recent hospitalization at [facility] in March 2025, an EKG showed evidence of atrial fibrillation. - The patient is on rate control therapy with digoxin and metoprolol in the outpatient setting. Thepatient is also on anticoagulation therapy with Eliquis in the outpatient setting. The patient is compliant with the use of her anticoagulation therapy in the outpatient setting. - After arriving to the hospital, the patient was started on anticoagulation therapy with a heparindrip - Given her worsening renal function, her digoxin was placed on hold. - The patient's clinical course has been marked by hypotension and she is currently requiring the use of midodrine 10 mg orally 3 times a day - As such, she is currently only on rate control therapy with Lopressor 2.5 mg IV every 6 hours. - However, despite the therapy with Lopressor, her heart rate is currently uncontrolled. Her heart rate is currently fluctuating between 120 and 150 bpm. Currently, her blood pressures are appropriate with the use of midodrine. - At this point, it is evident that the patient needs optimization of her rate control. However, her options are limited. Cannot use digoxin due to the patient's renal function. Cannot use a calcium channel amador (such as diltiazem) due to the patient's underlying LV systolic dysfunction. On the other hand, the patient's blood pressures are likely to be able to tolerate a higher dose of metoprolol. - Therefore, we will need to consider the use of IV amiodarone as a rate control agent. Amiodarone would be indicated in this case given the patient's uncontrolled heart rate and evidence of LV systolic dysfunction. Certainly, the use of amiodarone could result in a pharmacological cardioversion toa sinus rhythm. Nevertheless, the patient has been compliant with the use of her Eliquis in the outpatient setting and she has been on a heparin drip during this hospitalization with minimal interruptions. As such, even though there may be a risk of pharmacological cardioversion to a sinus rhythm and an associated risk of embolic event, this risk is slightly low given the patient's anticoagulation therapy. Also, started previously, our options at this point are rather limited with regards to potential agents to control her heart rate. - Would recommend to monitor the patient's LFTs after starting the amiodarone. Would also recommendto obtain a baseline TSH level given that the patient will be started on amiodarone. 2. Heart failure with reduced ejection fraction: - The patient has a history of heart failure with reduced ejection fraction. She is apparently followed in the outpatient setting by the [facility] cardiology service. It seems that the patient was on medical therapy with Entresto, furosemide,, digoxin, Toprol, and spironolactone in the outpatient setting. - The last echocardiogram available in our system is from 2021 (done at [facility]) and at that point her LVEF was around 25 to 30%. - On today's examination, the patient was noted to be euvolemic. However, she is currently on a Bumex drip as directed by the nephrology service. - Currently, her spironolactone and Entresto are on hold due to her ZEN. - At this point, would recommend to continue to follow with the nephrology service recommendations regarding her Bumex drip. Also, would recommend to obtain an echocardiogram to reevaluate her cardiac function. -Would also recommend to attempt to obtain the records from the patient's primary line out man at [facility]. [facility] CARDIOLOGY RECOMMENDATIONS: Complete an echocardiogram Attempted to obtain the records from the patient's primary line out man in the outpatient setting ([facility] cardiology) Continue to hold spironolactone and Entresto due to the patient's ZEN Continue with the Bumex drip as directed by the nephrology service Consider starting on amiodarone drip Please monitor the patient's LFTs after starting the amiodarone Please obtain a baseline TSH level given that the patient will be started on amiodarone Recommendations discussed with the ICU attending physician. Thank you for allowing us to participate in this consultation. Please feel free to contact us with questions or concerns. [facility] [address] [place] [address], [address] [place] [address] Please be aware that the above note was completed using voice recognition software. If you have anyquestions please contact the author of this note for clarification. [1] Current Facility-Administered Medications: acetaminophen (TYLENOL) tablet 1,000 mg, 1,000 mg, oral, q8h EMILY, Amarjit Ayala DO, 1,000 mg at1 0611 [COMPLETED] amiodarone (CORDARONE) bolus from infusion 150 mg, 150 mg, intravenous, Once, 150 mg at1 1027 FOLLOWED BY amiodarone (NEXTERONE) 360 mg in dextrose iso-osmotic 200 mL (1.8 mg/mL) infusion, 1 mg/min, intravenous, Continuous, Last Rate: 33.3 mL/hr at 05/26/25 1028, 1 mg/min at 05/26/25 1028 FOLLOWED BY amiodarone (NEXTERONE) 360 mg in dextrose iso- osmotic 200 mL (1.8 mg/mL) infusion, 0.5 mg/min, intravenous, Continuous, Charlotte Camara MD bumetanide (BUMEX) 10 mg in 40 mL infusion, 0.5 mg/hr, intravenous, Continuous, Salina Crenshaw NP, Last Rate: 2 mL/hr at 05/26/25 0640, 0.5 mg/hr at 05/26/25 0640 cefTRIAXone (ROCEPHIN) 1 g in sterile water 10 mL IV syringe, 1 g, intravenous, q24h, Amarjit Ayala DO, 1 g at 05/25/25 1511 dextrose (D50W) 50% injection 12.5 g, 12.5 g, intravenous, q15 min PRN, Amarjit Ayala DO, 12.5 g at 05/25/25 1149 dextrose (D50W) 50% injection 25 g, 25 g, intravenous, q15 min PRN, Amarjit Ayala DO, 25 g at 05/24/25 1731 dextrose 15 gram/60 mL oral solution 15 g, 15 g, oral, q15 min PRN, Amarjit Ayala DO dextrose 15 gram/60 mL oral solution 30 g, 30 g, oral, q15 min PRN, Amarjit Ayala DO [Held by provider] digoxin (LANOXIN) tablet 125 mcg, 125 mcg, oral, Once per day on Tuesday, ANY Cervantes, 125 mcg at 05/19/25 1703 fluticasone propionate (FLONASE) 50 mcg/actuation nasal spray 2 spray, 2 spray, Each Nostril, Daily, Amarjit Ayala DO, 2 spray at 05/26/25 0819 heparin (UFH) bolus from infusion 5,400 Units, 80 Units/kg, intravenous, q6h PRN OR heparin (UFH) bolus from infusion 2,700 Units, 40 Units/kg, intravenous, q6h PRN, Charlotte Camara MD heparin (UFH) in 5% dextrose 25,000 Units/250 mL (100 Units/mL) infusion, 13 Units/kg/hr, intravenous, Continuous, Charlotte Camara MD, Last Rate: 8.8 mL/hr at 05/26/25 0640, 13 Units/kg/hr at 05/26/25 0640 metoprolol tartrate (LOPRESSOR) injection 2.5 mg, 2.5 mg, intravenous, q6h, Charlotte Camara MD, 2.5 mg at 05/26/25 0818 metoprolol tartrate (LOPRESSOR) injection 2.5 mg, 2.5 mg, intravenous, q4h PRN, Charlotte Camara MD, 2.5 mg at 05/26/25 0211 midodrine (PROAMATINE) tablet 10 mg, 10 mg, oral, TID AC, Amarjit Ayala DO, 10 mg at 05/26/25 0818 multivitamin tablet 1 tablet, 1 each, oral, Daily, Amarjit Ayala DO, 1 tablet at 05/26/25 0818 naloxone (NARCAN) injection 0.04 mg, 0.04 mg, intravenous, PRN, Amarjit Cheemarault, DO ondansetron ODT (ZOFRAN-ODT) disintegrating tablet 4 mg, 4 mg, oral, q8h PRN OR ondansetron (PF) (ZOFRAN) injection 4 mg, 4 mg, intravenous, q8h PRN, Amarjit Cheemarault, DO oxyCODONE (ROXICODONE) immediate release tablet 5 mg, 5 mg, oral, q4h PRN, Amarjit Cheemaraanup, DO, 5 mg at 05/24/25 0009 perflutren lipid microsphere (DEFINITY) 1.3 mL in sodium chloride 0.9% 8.7 mL injection, 10 mL, intravenous, Once in imaging, Amarjit Cheemaraanup DO polyethylene glycol (MIRALAX) packet 17 g, 17 g, oral, Daily PRN, Amarjit Cheemarault, DO rosuvastatin (CRESTOR) tablet 10 mg, 10 mg, oral, Nightly, Amarjit Cheemarault, DO, 10 mg at 05/25/252114 sodium bicarbonate in dextrose 5 % 150 mEq/1150 mL infusion (Ordered as: sodium bicarbonate), 150 mEq, intravenous, Continuous, Salina Crenshaw NP, Last Rate: 50 mL/hr at 05/26/25 0640, Rate Verify at 05/26/25 0640 sodium chloride 0.9 % bolus 100 mL, 100 mL, intravenous, q5 min PRN, Amarjit Cheemarault, DO Insert peripheral IV, , , Once AND Maintain IV access, , , Until discontinued AND Saline lock IV, , , Once AND sodium chloride 0.9 % flush 10 mL, 10 mL, intravenous, BID, 10 mL at 05/26/25 0953 AND sodium chloride 0.9 % flush 10 mL, 10 mL, intravenous, PRN, Amarjit Levrault, DO, 10 mL at 05/25/252024 sodium zirconium cyclosilicate (LOKELMA) packet 10 g, 10 g, oral, BID, Salina Crenshaw NP, 10 g at 05/26/25 0818 tamoxifen (NOLVADEX) tablet 20 mg, 20 mg, oral, Daily, Amarjit Cheemarault, DO, 20 mg at 05/26/25 0818 thiamine (VITAMIN B-1) tablet 100 mg, 100 mg, oral, Daily, Amarjit Ayala, DO, 100 mg at [id number] * Johann Zamarripa MD - 05/21/2025 12:23 PM EDT Images from the original note were not included. Reason for Consultation: Acute kidney injury History of Present Illness: 79 year-old female with history of invasive ductal carcinoma of the right breast status post partial mastectomy and adjuvant radiation currently on letrozole, COPD, heart failure with reduced ejection fraction LVEF 25-30%, paroxysmal atrial fibrillation on apixaban anticoagulation, hypertension, hyperlipidemia presents acute metabolic encephalopathy and hypercalcemia. And admitted to the hospital with hypercalcemia with a corrected calcium of 13.1 mg/dL. She is noted to have an elevated protein gap with her total protein at 8.6 g/dL and albumin at 2.1 g/dL. . She had a recent outpatient CT scan that also reported lytic lesions in her right humerus, lumbarspine, and rib cage concerning for multiple myeloma versus metastatic disease from her breast cancer. consulted for assistance in her ongoing work up. Patient had a bone marrow biopsy She was given a trial of fluid resuscitation for treatment of the hypercalcemia. Fluid resuscitation may be limited by her heart failure. If her calcium remains elevated despite IV fluids, zoledronicacid was administered after that Renal consult been requested as patient creatinine was around 0.[address] scan with iodinated contrast on 16 May-creatinine started increasing 1 year in the Patient did have significant hypotension SUBJECTIVE Review of Systems Patient has altered mental status not giving good history Medical History[1] Surgical History[2] Social History Socioeconomic History Marital status: Spouse name: Not on file Number of children: Not on file Years of education: Not on file Highest education level: Not on file Occupational History Not on file Tobacco Use Smoking status: Never Smokeless tobacco: Never Substance and Sexual Activity Alcohol use: Not Currently Drug use: Never Sexual activity: Defer Other Topics Concern Not on file Social History Narrative Not on file Family History[3] Home Medications acetaminophen (TYLENOL) 325 mg tablet Take 2 tablets (650 mg total) by mouth every 6 (six) hours ifneeded. apixaban (ELIQUIS) 5 mg tablet Take 0.5 tablets (2.5 mg total) by mouth 2 (two) times a day. cholecalciferol (VITAMIN D-3) 50 mcg (2,000 unit) capsule Take by mouth. digoxin (LANOXIN) 125 mcg (0.125 mg) tablet Take by mouth. docusate sodium (COLACE) 100 mg capsule Take 100 mg by mouth 2 times daily. fluticasone propionate (FLONASE) 50 mcg/actuation nasal spray 2 Sprays by Each Nare route daily. furosemide (LASIX) 40 mg tablet Take 0.5 tablets (20 mg total) by mouth 1 (one) time each day. gabapentin (NEURONTIN) 100 mg capsule Take 1 capsule (100 mg total) by mouth. ipratropium/albuterol sulfate (COMBIVENT INHL) Inhale into the lungs. letrozole (FEMARA) 2.5 mg tablet TAKE ONE TABLET BY MOUTH EVERY DAY metoprolol succinate (TOPROL-XL) 200 mg 24 hr tablet Take 1 tablet (200 mg total) by mouth 1 (one) time each day. potassium chloride (KLOR-CON M10) 10 mEq CR tablet Take 2 tablets (20 mEq total) by mouth 1 (one) time each day. Rocklatan 0.02-0.005 % drops Administer 1 drop into both eyes 1 (one) time each day in the evening. rosuvastatin (CRESTOR) 40 mg tablet Take 40 mg by mouth daily. sacubitriL-valsartan (ENTRESTO) 24-26 mg per tablet Take 1 tablet by mouth 2 (two) times a day. spironolactone (ALDACTONE) 25 mg tablet Take 0.5 tablets (12.5 mg total) by mouth. tamsulosin (FLOMAX) 0.4 mg 24 hr capsule Take 1 capsule (0.4 mg total) by mouth. traMADoL (ULTRAM) 50 mg tablet Take 1 tablet (50 mg total) by mouth every 8 (eight) hours if neededfor moderate pain. Max Daily Amount: 150 mg Allergies: No Known Allergies Current Medications: MEDSSCHEDULED[4] MEDSCONTINUOUS[5] MEDSPRN[6] OBJECTIVE Physical Exam: Current Vitals: Blood pressure (!) 92/48, pulse 91, temperature 36 ??C (96.8 ??F), temperature source Temporal, resp. rate 16, height 1.575 m (62 ), weight 48.6 kg (107 lb 3.2 oz), SpO2 100%. Intake/Output: I/O last 3 completed shifts: In: - (0 mL/kg) Out: 455 (9.4 mL/kg) [Urine:455 (0.3 mL/kg/hr)] Weight: 48.6 kg General : Lying in bed lethargic but arousable HEENT: Normocephalic, sclerae anicteric, buccal mucosa moist no oral lesions Neck: Supple, symmetrical, trachea midline, no JVD Lungs: Clear to auscultation bilaterally, respirations unlabored Chest wall: No tenderness or deformity Heart: Regular rate and rhythm. No murmurs. No JVD. No hepatojugular reflux. Abdomen: Soft, non-tender, bowel sounds active all four quadrants. Extremities: Extremities normal, atraumatic, no cyanosis or edema Pulses: 2+ and symmetric all extremities Skin: Dry mucosa Neurologic: Lethargic but arousable Laboratory Data: Urine No results found for: COLORUA , CLARITYUA , SPECGRAVUA , PHUA , PROTUA , GLUCOSEUA , KETONESUA , BILIRUBINUA , BLOODUA , UROBILINOGUA , NITRITEUA No results found for: MICROALBUR , [id number] CBC Results from last 7 days Lab Units 05/21/25 0613 05/20/25 0536 05/17/25 0617 WBC AUTO K/mcL 14.9* 12.1* 12.1* 10.7 HEMOGLOBIN g/dL 9.0* 10.0* 10.0* 11.4* HEMATOCRIT % 32.1* 36.5 36.5 38.4 PLATELETS K/mcL 268 209 209 416* CMP Results from last 7 days Lab Units 05/21/25 0613 05/21/25 0355 05/20/25 0746 05/19/25 1554 SODIUM mmol/L 144 -- 146* 145 POTASSIUM mmol/L 4.7 -- 4.2 3.7 CHLORIDE mmol/L 117* -- 119* 115* CO2 mmol/L 20* -- 20* 25 BUN mg/dL 31* -- 22 14 CREATININE mg/dL 2.79* -- 2.29* 1.15* EGFR mL/min/1.73m2 17* -- 21* 48* POCT GLUCOSE -- < > -- -- GLUCOSE mg/dL 258* -- 200* 169* CALCIUM mg/dL 7.1* -- 7.9* 7.9* < > = values in this interval not displayed. Anemia MBD No results found for: IRON , TIBC , FERRITIN Lab Results Component Value Date PTH 9.7 (L) 05/16/2025 CALCIUM 7.1 (L) 05/21/2025 CAION 5.48 (H) 05/17/2025 ASSESSMENT AND PLAN Severe acute kidney injury in the setting of hypotension Doubt contrast nephropathy as the timeline does not fit Urine sodium is elevated with hide fractional excretion of sodium consistent with acute tubular injury Clinically patient looks prerenal multifactorial reasons including hypocalcemia Baseline creatinine is 0.7-0.8 Breast CA with likely metastatic disease Hypercalcemia-likely due to with PTH which is suppressed likely due to malignancy Myeloma screen was negative and this could likely be due to breast CA with mets Acute metabolic and cephalopathy Mild hyponatremia At this juncture I recommend discontinuation of gabapentin Agree with IV antibiotics Agree with holding all BP medication Hold Entresto and spironolactone I will discontinue the present IV fluids with potassium and start her on LR-Will give 125 mL/h withclose watch of her volume status Bone biopsy results are pending Follow-up renal function in a.m. Watch calcium level Follow-up workup for hypercalcemia No immediate need for renal replacement therapy but will continue to follow -Avoid nephrotoxins, such as NSAIDs, iodinated contrast, and phosphate enema, as able. -Dose all mediations for appropriate eGFR Thank you again for the consultation on your patient, we will be happy to follow along with you. [1] History reviewed. No pertinent past medical history. [2] Past Surgical History: Procedure Laterality Date US GUIDED BREAST BIOPSY RIGHT Right 2020 [3] No family history on file. [4] acetaminophen, 1,000 mg, oral, q8h EMILY [Held by provider] apixaban, 2.5 mg, oral, BID cefTRIAXone, 1 g, intravenous, q24h [Held by provider] digoxin, 125 mcg, oral, Once per day on Tuesday fluticasone propionate, 2 spray, Each Nostril, Daily gabapentin, 100 mg, oral, Nightly letrozole, 2.5 mg, oral, Daily metoprolol tartrate, 5 mg, intravenous, q6h [Held by provider] metoprolol tartrate, 50 mg, oral, q6h midodrine, 10 mg, oral, TID AC multivitamin, 1 each, oral, Daily rosuvastatin, 10 mg, oral, Nightly [Held by provider] sacubitriL-valsartan, 1 tablet, oral, BID sodium chloride, 10 mL, intravenous, BID [Held by provider] spironolactone, 12.5 mg, oral, Daily [Held by provider] tamsulosin, 0.4 mg, oral, Daily thiamine, 100 mg, oral, Daily [5] dextrose 5 % and sodium chloride 0.9 % with KCl 20 mEq/L, 100 mL/hr, Last Rate: 100 mL/hr (05/21/25 0110) heparin, 20 Units/kg/hr, Last Rate: 18 Units/kg/hr (05/20/25 1730) [6] PRN medications: heparin OR heparin, metoprolol tartrate, naloxone, ondansetron (ZOFRAN-ODT) disintegrating tablet OR ondansetron, oxyCODONE, polyetheylene glycol, prochlorperazine ORprochlorperazine OR prochlorperazine, Insert peripheral IV AND Maintain IV access AND Saline lock IV AND sodium chloride AND sodium chloride * Betty Obrien RD - 05/18/2025 12:24 PM EDTAssociated Order(s): IP CONSULT TO NUTRITION SERVICES 05/18/2025 @ 12:26 PM EDT Nutrition Consult Note/Nutrition Assessment [employer] Services: Language: Patient Ecuadorean speaking but confused. History obtained from patient's daughter. Reason for RD Intervention: Assessment Type: Provider Consult Reason for Assessment: High MST Score Anthropometrics: Height: 157.5 cm (62 ) Weight: 48.6 kg (107 lb 3.2 oz) BMI (Calculated): 19.6 BMI Class: Normal IBW (lbs): 110 Recent Weight Change: Yes Other (Comment): If recorded weight history accurate 27% loss over 3 months Current Diet and Supplements: Dietary Orders (From admission, onward) Start Ordered 05/15/252112 Adult diet [facility]; General; Regular Diet effective now Question Answer Comment Location [facility] Diet Type (req) General General Diet Regular 05/15/252111 History of presenting illness: Patient is a 79 y.o. female with a history of History reviewed. No pertinent past medical history. Past Surgical History: Procedure Laterality Date US GUIDED BREAST BIOPSY RIGHT Right 2020 admitted 05/15/2025 with Acute metabolic encephalopathy. Food/Nutrition History: Patient unable to provide history, per Daughter Maggie patient with weight loss and loss of appetite over past few months. Daughter encouraging patient to eat, but she was consuming ,75% of usual intake. Daughter has started providing Ensure at home. Daughter noted patient will not et on her own needs assistance a mealtimes. Social Influencers of Health & Nutrition - Hunger Vital Signs: Within the past 12 months we worried whether our food would run out before we got money to buy more: Unable to respond Within the past 12 months the food we bought just didn't last and we didn't have money to get more: Unable to respond Who obtained answers? Unable to complete at this time. Assistance: Unable to determine at this time Weight History: Wt Readings from Last 10 Encounters: 05/15/25 48.6 kg (107 lb 3.2 oz) 01/30/25 66.2 kg (146 lb) 07/24/24 68 kg (150 lb) 12/16/23 69.9 kg (154 lb 3.2 oz) 07/04/23 73 kg (161 lb) 06/15/23 72.1 kg (159 lb) 01/12/23 76.7 kg (169 lb 3.2 oz) 12/15/22 74.8 kg (165 lb) 06/21/22 71.2 kg (157 lb) 06/16/22 76.7 kg (169 lb) Subjective Assessment: Patient presents with altered mental status, hypercalcemia, weight loss, meets criteria for malnutrition, concern for metastasis to bone. Plan for bone biopsy Tuesday. Patient consumed 25% breakfast. Nutrition-Related Lab Values: Results from last 7 days Lab Units 05/18/25 0424 05/17/25 0617 05/17/25 0611 05/16/25 0552 SODIUM mmol/L 142 -- < > 137 POTASSIUM mmol/L 3.7 -- < > 4.0 MAGNESIUM mg/dL 2.2 -- -- -- CHLORIDE mmol/L 109 -- < > 99 CO2 mmol/L 26 -- < > 33* BUN mg/dL 14 -- < > 20 CREATININE mg/dL 0.76 -- < > 0.74 EGFR mL/min/1.73m2 79 -- < > 82 CALCIUM mg/dL 9.4 -- < > 11.3* BILIRUBIN TOTAL mg/dL -- -- -- 0.4 ALK PHOS unit/L -- -- -- 325* ALT unit/L -- -- -- 17 AST unit/L -- -- -- 97* GLUCOSE mg/dL 124* -- < > 122* WBC AUTO K/mcL -- 10.7 -- 13.3* < > = values in this interval not displayed. Medications: [Held by provider] apixaban, 2.5 mg, oral, BID digoxin, 125 mcg, oral, Once per day on Tuesday fluticasone propionate, 2 spray, Each Nostril, Daily gabapentin, 100 mg, oral, Nightly letrozole, 2.5 mg, oral, Daily metoprolol tartrate, 50 mg, oral, q6h midodrine, 5 mg, oral, TID AC rosuvastatin, 40 mg, oral, Nightly [Held by provider] sacubitriL-valsartan, 1 tablet, oral, BID sodium chloride, 10 mL, intravenous, BID [Held by provider] spironolactone, 12.5 mg, oral, Daily [Held by provider] tamsulosin, 0.4 mg, oral, Daily CONTINUOUS: heparin, 20 Units/kg/hr, Last Rate: 18 Units/kg/hr (05/17/25 9095) sodium chloride, 75 mL/hr, Last Rate: 75 mL/hr (05/17/25 3478) PRN medications: acetaminophen, heparin OR heparin, metoprolol tartrate, naloxone, ondansetron (ZOFRAN-ODT) disintegrating tablet OR ondansetron, oxyCODONE, oxyCODONE, polyetheylene glycol, prochlorperazine OR prochlorperazine OR prochlorperazine, Insert peripheral IV AND Maintain IV access AND Saline lock IV AND sodium chloride AND sodium chloride Food/Nutrition-Current Status: Intake Type: P.O. Appetite: Poor Intake Amount (%): 0-25% Intake Assessment: Inadequate (one meal observed) Main IVF: NS Main IVF Rate (mL/hr): 75 Nutrition Focused Physical Findings: Overall Appearance: Patient lying in bed, appears thin, frail Digestive System (Mouth to Rectum): Appetite change Nerves and Cognition: Alert, Confused Skin: no wounds noted Loss of Fat Location: Orbital, Ribs, Triceps Loss of Fat Amt-Orbital: Moderate Loss of Fat Amt-Triceps: Moderate Loss of Fat Amt-Ribs: Moderate Loss of Muscle Location: Temples, Clavicle, Interosseous Loss of Muscle Amt-Temples: Moderate Loss of Muscle Amt-Clavicle: Moderate Loss of Muscle Amt-Inter Musc: Moderate Nutrition Diagnosis: Code Type: Severe-Acute (E43) Severe-Acute Criteria: Weight Loss >7.5%/3 mos, Moderate Body Fat Depletion, Moderate Muscle Mass Depletion Status: New Diagnosis: Malnutrition Etiology: Increased demand for nutrient, Changes in taste and appetite or preference Symptoms: 27% weight loss over 3 months. moderate muscle and fat depletion Additional Nutrition Diagnosis?: Yes Status: New Diagnosis: Inadequate Oral Intake Etiology: Physiologic causes, Changes in taste and appetite or preference Symptoms: weight loss, muscle and fat depletion Nutrition Interventions: Medical Food Supplement, Feeding Assistance, Vitamin/Mineral Supplement Medical Food Supplement(s): Ensure Plus BID, prefers strawberry or vanilla Notify provider and RN patient needs assistance with meals. Order multivitamin daily, thiamine 100 mg Nutrition Education Education Materials Reviewed: Follow for need. Readiness: [] Eager [] Acceptance [] Non-acceptance [] Refuses [x] Cognitively Impaired Methods: [] Explanation []Demonstration [] Handout [x] Cognitively Impaired [] Teach-Back Response: [] Verbalizes Understanding [] Demonstrated Understanding [] Needs Reinforcement [] No Evidence of Learning [] Refused Teaching [] Indicates Has Questions [x] Cognitively Impaired [] Able to teach back information Goals: Patient will initially consume at least 50% of meals. , Patient will consume ONS., Maintain weight., Stooling appropriately., and Maintain skin integrity. Coordination of Patient Care: Verbal discussion with RN., Care plan discussed with patient/family., Discussed with provider(s) via [employer] Secure Chat/Haiku. , Malnutrition OPA sent to provider via [employer], and Malnutrition identification discussed with provider. Monitoring/Evaluation: Food Intake, Medical Food Supp/Oral Nutrition Supp, Weight Follow Up: Nutrition Priority Level: High Nutritional Discharge Recommendations: RD remains available and will continue to follow. Signature: Btety Obrien RD * Gladis Mcgovern MD - 05/17/2025 12:34 PM EDTAssociated Order(s): IP CONSULT TO INTERVENTIONAL RADIOLOGY Interventional Radiology Consult Note History Of Present Illness Chayito Klein is a 79 y.o. female presenting with multiple bony lesions. Past Medical History She has no past medical history on file. Surgical History She has a past surgical history that includes us guided breast biopsy right (Right, 2020). Family History family history is not on file. Social History She reports that she has never smoked. She has never used smokeless tobacco. She reports that she does not currently use alcohol. She reports that she does not use drugs. Allergies Patient has no known allergies. Medications Medications Prior to Admission Medication Sig Dispense Refill Last Dose/Taking Rocklatan 0.02-0.005 % drops Administer 1 drop into both eyes 1 (one) time each day in the evening.Taking sacubitriL-valsartan (ENTRESTO) 24-26 mg per tablet Take 1 tablet by mouth 2 (two) times a day. Taking traMADoL (ULTRAM) 50 mg tablet Take 1 tablet (50 mg total) by mouth every 8 (eight) hours if neededfor moderate pain. Max Daily Amount: 150 mg Taking As Needed acetaminophen (TYLENOL) 325 mg tablet Take 2 tablets (650 mg total) by mouth every 6 (six) hours ifneeded. apixaban (ELIQUIS) 5 mg tablet Take 0.5 tablets (2.5 mg total) by mouth 2 (two) times a day. cholecalciferol (VITAMIN D-3) 50 mcg (2,000 unit) capsule Take by mouth. (Patient not taking: Reported on 05/15/2025) Not Taking digoxin (LANOXIN) 125 mcg (0.125 mg) tablet Take by mouth. docusate sodium (COLACE) 100 mg capsule Take 100 mg by mouth 2 times daily. (Patient not taking: Reported on 05/15/2025) Not Taking fluticasone propionate (FLONASE) 50 mcg/actuation nasal spray 2 Sprays by Each Nare route daily. furosemide (LASIX) 40 mg tablet Take 0.5 tablets (20 mg total) by mouth 1 (one) time each day. gabapentin (NEURONTIN) 100 mg capsule Take 1 capsule (100 mg total) by mouth. ipratropium/albuterol sulfate (COMBIVENT INHL) Inhale into the lungs. (Patient not taking: Reportedon 05/15/2025) Not Taking letrozole (FEMARA) 2.5 mg tablet TAKE ONE TABLET BY MOUTH EVERY DAY 90 tablet 3 metoprolol succinate (TOPROL-XL) 200 mg 24 hr tablet Take 1 tablet (200 mg total) by mouth 1 (one) time each day. potassium chloride (KLOR-CON M10) 10 mEq CR tablet Take 2 tablets (20 mEq total) by mouth 1 (one) time each day. rosuvastatin (CRESTOR) 40 mg tablet Take 40 mg by mouth daily. spironolactone (ALDACTONE) 25 mg tablet Take 0.5 tablets (12.5 mg total) by mouth. tamsulosin (FLOMAX) 0.4 mg 24 hr capsule Take 1 capsule (0.4 mg total) by mouth. Last Recorded Vitals Blood pressure (!) 86/48, pulse 79, temperature 36.2 ??C (97.2 ??F), resp. rate 16, height 1.575 m (62 ), weight 48.6 kg (107 lb 3.2 oz), SpO2 96%. Relevant Results Lab Results Component Value Date INR 1.7 05/15/2025 PLT 416 (H) 05/17/2025 WBC 10.7 05/17/2025 HGB 11.4 (L) 05/17/2025 HCT 38.4 05/17/2025 EGFR 72 05/17/2025 Assessment/Plan Principal Problem: Acute metabolic encephalopathy Active Problems: Hypercalcemia Malignancy (CMS/HCC V24, CMS/HCC V28) Severe protein-calorie malnutrition (CMS/HCC V24) Hypotension CT reviewed. Bone biopsy of focal lesion will be ordered for Tuesday. Target to be determined by their doc on Tuesday. * Dhaval Joseph MD - 05/16/2025 9:43 AM EDTAssociated Order(s): IP CONSULT TO ONCOLOGY Hematology/Oncology Consult Note Date of Consult: 05/16/2025 Patient's Primary Care Physician: Peyman Boss MD Subjective History of Present Illness Patient is evaluated at bedside, interpretation with the help of her son Abdulaziz. History is limiteddue to patient's confusion. She complains of generalized pain, and has difficulty moving her legs related to pain. Her son tells me that she has been losing weight, at her last visit with medical oncology in January she weighed 146lb and was 108lb on hospital admission (05/15/2025). I called patient's daughter Mariaa at Abdulaziz's request as she is the main caregiver for the patient. Mariaa tells me that her mother has had generalized pain for a while but that it was mild and did not raise any alarms forthem, but about a month ago the pain was so bad that she was unable to walk. She states that her mother was started on tramadol on Thursday 05/10 and started to become confused on Tuesday or Tuesday. They assumed the confusion was from the pain medicine. They eventually brought her to the hospital on Tuesday 05/15 when she was admitted for hypercalcemia. Oncology history: Patient underwent screening mammogram on 11/08/2018 which showed a 1cm spiculated mass in the right breast at 9:00, 2-4 cm from the nipple and a 0.7cm focal asymmetry in the right breast at 7:00-8:00.She was subsequently lost to follow- up. On 03/27/2021 she underwent a screening mammogram which showed a spiculated mass in the inferolateral right breast, 5cm from the nipple. Follow-up right breast ultrasound on 03/31/2021 revealed a 1.4 x 1.0 x 1.0 cm irregularly marginated hypoechoic shadowing mass at 8:00, 5cm from the nipple. She underwent an ultrasound-guided core biopsy on 04/06/2021 and the pathology showed a grade 2 invasive ductal breast cancer, ER/MT-positive, [id number], Ki-67 low. She underwent a partial mastectomy on 05/05/[address] Faustin and the pathology revealed a 1.9 cm grade 2 invasive ductal breast cancer. LVI was not present. She declined adjuvant radiation based on her age over 69 and stage I disease and on the assumption that she would complete adjuvant hormonal therapy. She started adjuvant letrozole in June 2021 and is tolerating it well without significant side effects. Most recent mammogram on 07/24/2024 with no mammographic evidence of malignancy. Past Medical History History reviewed. No pertinent past medical history. Past Surgical History Past Surgical History: Procedure Laterality Date US GUIDED BREAST BIOPSY RIGHT Right 2020 Family History No family history on file. Personal and Social History Social History Tobacco Use Smoking Status Never Smokeless Tobacco Never Social History Substance and Sexual Activity Alcohol Use Not Currently Social History Substance and Sexual Activity Drug Use Never Objective Medications Current Facility-Administered Medications: acetaminophen (TYLENOL) tablet 500 mg, 500 mg, oral, q6h PRN, ANY Cervantes digoxin (LANOXIN) tablet 125 mcg, 125 mcg, oral, Once per day on Tuesday, ANY Cervantes fluticasone propionate (FLONASE) 50 mcg/actuation nasal spray 2 spray, 2 spray, Each Nostril, Daily, ANY Cervantes, 2 spray at 05/16/25 0826 gabapentin (NEURONTIN) capsule 100 mg, 100 mg, oral, Nightly, ANY Cervantes letrozole (FEMARA) tablet 2.5 mg, 2.5 mg, oral, Daily, ANY Cervantes metoprolol tartrate (LOPRESSOR) injection 5 mg, 5 mg, intravenous, q6h PRN, ANY Cervantes, 5 mg at 05/16/25 0831 metoprolol tartrate (LOPRESSOR) tablet 50 mg, 50 mg, oral, TID, Ernesto Lynch MD naloxone (NARCAN) injection 0.04 mg, 0.04 mg, intravenous, PRN, ANY Cervantes ondansetron ODT (ZOFRAN-ODT) disintegrating tablet 4 mg, 4 mg, oral, q8h PRN OR ondansetron (PF) (ZOFRAN) injection 4 mg, 4 mg, intravenous, q8h PRN, Jhoan Sanz MD polyethylene glycol (MIRALAX) packet 17 g, 17 g, oral, Daily PRN, Jhoan Sanz MD prochlorperazine (COMPAZINE) tablet 10 mg, 10 mg, oral, q6h PRN OR prochlorperazine (COMPAZINE)injection 10 mg, 10 mg, intravenous, q6h PRN OR prochlorperazine (COMPAZINE) suppository 25 mg,25 mg, rectal, q12h PRN, Jhoan Sanz MD rosuvastatin (CRESTOR) tablet 40 mg, 40 mg, oral, Nightly, ANY Cervantes Insert peripheral IV, , , Once AND Maintain IV access, , , Until discontinued AND Saline lock IV, , , Once AND sodium chloride 0.9 % flush 10 mL, 10 mL, intravenous, BID, 10 mL at 05/16/25 0827 AND sodium chloride 0.9 % flush 10 mL, 10 mL, intravenous, PRN, Jhoan Sanz MD sodium chloride 0.9 % infusion, 100 mL/hr, intravenous, Continuous, Jhoan Sanz MD, Last Rate: 100 mL/hr at 05/16/25 0935, 100 mL/hr at 05/16/25 0935 tamsulosin (FLOMAX) 24 hr capsule 0.4 mg, 0.4 mg, oral, Daily, ANY Cervantes traMADoL (ULTRAM) tablet 50 mg, 50 mg, oral, q8h PRN, ANY Cervantes zoledronic acid (ZOMETA) IVPB pre-mix 4 mg, 4 mg, intravenous, Once, Ernesto Lynch MD, Last Rate: 200 mL/hr at 05/16/25 0937, 4 mg at 05/16/25 0937 Allergies No Known Allergies Physical Exam Vitals: 05/15/25202705/15/25 2257 05/16/25 0539 05/16/25 0752 BP: 128/74 (!) 122/97 131/87 122/80 BP Location: Left arm Left arm Right arm Left arm Patient Position: Lying Lying Lying Lying Pulse: 108 (!) 115 83 94 Resp: 18 16 15 Temp: 36 ??C (96.8 ??F) 36.6 ??C (97.8 ??F) 36.4 ??C (97.6 ??F) 35.7 ??C (96.3 ??F) TempSrc: Oral Temporal Temporal Temporal SpO2: 95% 95% 93% 94% Weight: 48.6 kg (107 lb 3.2 oz) Height: Body mass index is 19.61 kg/m??. General: Pleasant but mildly confused Eyes: conjunctiva pink and sclera are Normal without icterus Oral cavity: No erythema or exudates Neck Neck supple, no adenopathy, Resp: CTA; normal inspiratory effort, no wheezes, rhonchi or rales Cardio: RRR, no murmurs rubs or gallops Abdomen: soft non tender, non distended, normoactive bowel sounds, MSK: Moving all extremities; no edema Skin: warm, dry, no rashes Neuro: alert to person and place but has difficulty responding to questions appropriately, sensation is grossly intact, is able to lift both of her legs and move her toes Imaging CT chest/abdomen/pelvis 05/16/2025 FINDINGS: LUNGS/PLEURA: Hypoventilatory examination with atelectasis. Patchy groundglass opacities in the upper lobes which could be infectious/inflammatory though a follow-up CT chest should be performed in 3months to ensure resolution. MEDIASTINUM: Cardiomegaly with coronary artery calcifications. Heterogenous appearance of the thyroid with thyroid nodules. CHEST WALL: Posttreatment changes in the right breast. HEPATOBILIARY: No focal liver lesions. Cholelithiasis. SPLEEN: no focal lesion PANCREAS: No focal mass or ductal dilatation. ADRENALS: No nodules. KIDNEYS/URETERS: Nonobstructing right renal calculi. PELVIC ORGANS/BLADDER: Bladder is distended. PERITONEUM / RETROPERITONEUM: No ascites or free air. No retroperitoneal lymphadenopathy. VESSELS: Sclerotic plaque throughout the GI TRACT: The aorta. BONES AND SOFT TISSUES: There are numerous metastatic lesions throughout the bones with multilevel degenerative changes of the spine with anterolisthesis of L4 and L5. No acute osseous abnormality. Remote rib deformities. Soft tissues are unremarkable. IMPRESSION: 1. Numerous metastatic lesions throughout the bones. 2. Nodular opacities in the upper lobes, consider follow-up CT in 1-3 months. Mammogram 08/13/2024 FINDINGS: The breasts are again seen to [...] new area of architectural distortion. There is nonipple retraction. IMPRESSION: No mammographic evidence of malignancy. Postlumpectomy changes laterally in the right breast are again seen, mildly decreased. A negative mammogram in the presence of a clinically suspicious palpable abnormality does not preclude the possibility of malignancy or alter the indications for biopsy. TISSUE DENSITY: There are scattered areas of fibroglandular density. (BI-RADS category B) IMPRESSION: Benign. BI-RADS CATEGORY: 2 - BENIGN RECOMMENDATION: Screening bilateral mammogram is recommended in 1 year. Labs Lab Results Component Value Date WBC 13.3 (H) 05/16/2025 RBC 4.10 05/16/2025 HGB 10.9 (L) 05/16/2025 HCT 37.4 05/16/2025 MCV 91.0 05/16/2025 MCHC 29.1 (L) 05/16/2025 RDW 16.9 (H) 05/16/2025 PLT 388 05/16/2025 MPV 10.0 05/16/2025 NRBC 0.0 05/16/2025 DIFF Lab Results Component Value Date LYMPHOPCT 12.0 05/16/2025 NEUTROABS 10.03 (H) 05/16/2025 LYMPHSABS 1.60 05/16/2025 MONOABS 1.40 (H) 05/16/2025 EOSABS 0.09 05/16/2025 BASOSABS 0.07 05/16/2025 IMMGRANABS 0.10 (H) 05/16/2025 RETIC No results found for: RETIC , RETICCTPCT Lab Results Component Value Date NA 137 05/16/2025 K 4.0 05/16/2025 CL 99 05/16/2025 CO2 33 (H) 05/16/2025 GLUCOSE 122 (H) 05/16/2025 BUN 20 05/16/2025 CREATININE 0.74 05/16/2025 CALCIUM 11.3 (H) 05/16/2025 PROT 7.8 05/16/2025 ALBUMIN 1.9 (L) 05/16/2025 BILITOT 0.4 05/16/2025 AST 97 (H) 05/16/2025 ALT 17 05/16/2025 URICACID 3.0 (L) 05/15/2025 ALKPHOS 325 (H) 05/16/2025 EGFR 82 05/16/2025 Assessment & Plan Case discussed with Dhaval Joseph MD recommendations as follows: 79 year old female with right-sided stage I T1cN0 invasive ductal breast cancer, ER/MT-positive, [id number], Ki-67 low, s/p partial mastectomy on 05/05/2021, on letrozole, here for confusion and hypercalcemia and likely breast cancer bone metastasis. The hypercalcemia has been treated with Zometa IV and hydration. Numerous metastatic lesions throughout the bones on CT Likely breast cancer metastasis Consult IR for biopsy of bone lesion, preferably a bone metastasis with a soft tissue component amenable to biopsy. We require a sample with enough tissue for molecular testing. We will arrange PET scan as outpatient Outpatient follow up after discharge. If confirmed breast cancer metastasis, treatment options include ribociclib/fulvestrant. If there is an ESR1 mutation identified on molecular testing, ribociclib/elacestrant would be a reasonable option. If PIK3CA mutation is identified, capivasertib in combination with fulvestrant is indicated. Bone Pain Patient reporting significant bone pain, recommend oxycodone 5 mg as needed for better pain control ?Multiple myeloma Awaiting SPEP and light chains Please note, this note may have been created in part by using adRise dictation software, and therefore, it may contain typographical and/or grammatical errors inherent in a voice recognition software program CC: Peyman Boss MD Sign: Ivania Adorno PA-C Hematology/Oncology [facility] [phone] I saw and examined the patient on 05/16/2025. The case was discussed extensively with our physician editorial assistant. I agree with the de leon aspects of the history and physical and assessment and plan above. Dhaval Joseph MD Attending physician. documented in this encounter Miscellaneous Notes * ED Bed Hold Note - Amanda Claros RN - 05/15/2025 4:32 PM EDT Bed: RD-15 Expected date: Expected time: Means of arrival: Comments: Santy: 79yoF weakness, increased confusion documented in this encounter Plan of Treatment Upcoming Encounters Date Type Department Care Team (Late st Contact Info) Description 08/07/2025 11:15 AM EST Office Visit [facility] Hematology Oncology [address] [place] [address] Dhaval Joseph MD [address] [place] [phone] Pending Results Name Type Priority Associated Diagnoses Date /Time FLEXIBLE SIGMOIDOSCOPY Anesthesia - MAC; SP ENDOSCOPY Endoscopy Routine 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, left ([facility] V24, [facility] V28) 05/31/2025 12:38 PM EDT EGD Anesthesia - MAC; [facility] ENDOSCOPY Endoscopy Routine 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, left ([facility] V24, [facility] V28) 05/31/2025 1:07 PM EDT Scheduled Orders Name Type Priority Associated Diagnoses Orde r Schedule FLEXIBLE SIGMOIDOSCOPY Anesthesia - MAC; [facility] ENDOSCOPY Endoscopy Routine 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, left (CMS/HCC V24, CMS/HCC V28) Once for 1 Occurrences starting 05/31/2025 until 05/31/2025 EGD Anesthesia - MAC; [facility] ENDOSCOPY Endoscopy Routine 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, left (CMS/HCC V24, CMS/HCC V28) Once for 1 Occurrences starting 05/31/2025 until 05/31/2025 documented as of this encounter Procedures Procedure Name Priority Date/Time Associated Diagnosis Comments POCT GLUCOSE BLOOD Routine 06/05/2025 4: 03 PM EDT IR REMOVE TUNNELED CVC WO SUBQ PORT OR PUMP Routine 06/05/2025 3:48 PM EDT POCT GLUCOSE BLOOD Routine 06/05/2025 11 :29 AM EDT POCT GLUCOSE BLOOD Routine 06/05/2025 7: 50 AM EDT CBC WITH AUTO DIFFERENTIAL Routine 06/05/2025 5:29 AM EDT HEMOGLOBIN AND HEMATOCRIT Timed 06/05/2025 5:29 AM EDT CBC AND DIFFERENTIAL Routine 06/05/2025 5:29 AM EDT MAGNESIUM Routine 06/05/2025 5:29 AM EDT BASIC METABOLIC PANEL Routine 06/05/2025 5:29 AM EDT POCT GLUCOSE BLOOD Routine 06/05/2025 4: 07 AM EDT POCT GLUCOSE BLOOD Routine 06/05/2025 4: 01 AM EDT HEMOGLOBIN AND HEMATOCRIT Timed 06/04/2025 8:55 PM EDT POCT GLUCOSE BLOOD Routine 06/04/2025 8: 45 PM EDT POCT GLUCOSE BLOOD Routine 06/04/2025 4: 11 PM EDT POCT GLUCOSE BLOOD Routine 06/04/2025 12 :12 PM EDT CALCIUM, IONIZED Routine 06/04/2025 10:2 1 AM EDT OXYGEN THERAPY, ADULT Routine 06/04/2025 8:00 AM EDT POCT GLUCOSE BLOOD Routine 06/04/2025 7: 57 AM EDT CBC WITH AUTO DIFFERENTIAL Routine 06/04/2025 5:55 AM EDT HEMOGLOBIN AND HEMATOCRIT Timed 06/04/2025 5:55 AM EDT CBC AND DIFFERENTIAL Routine 06/04/2025 5:55 AM EDT MAGNESIUM Routine 06/04/2025 5:55 AM EDT ALBUMIN Add-On 06/04/2025 5:55 AM EDT BASIC METABOLIC PANEL Routine 06/04/2025 5:55 AM EDT POCT GLUCOSE BLOOD Routine 06/04/2025 12 :55 AM EDT HEMOGLOBIN AND HEMATOCRIT Timed 06/03/2025 9:21 PM EDT POCT GLUCOSE BLOOD Routine 06/03/2025 9: 08 PM EDT POCT GLUCOSE BLOOD Routine 06/03/2025 4: 09 PM EDT POCT GLUCOSE BLOOD Routine 06/03/2025 10 :59 AM EDT POCT GLUCOSE BLOOD Routine 06/03/2025 8: 41 AM EDT OXYGEN THERAPY, ADULT Routine 06/03/2025 8:00 AM EDT POCT GLUCOSE BLOOD Routine 06/03/2025 7: 32 AM EDT CBC WITH AUTO DIFFERENTIAL Routine 06/03/2025 5:13 AM EDT HEMOGLOBIN AND HEMATOCRIT Timed 06/03/2025 5:13 AM EDT CBC AND DIFFERENTIAL Routine 06/03/2025 5:13 AM EDT MAGNESIUM Routine 06/03/2025 5:13 AM EDT BASIC METABOLIC PANEL Routine 06/03/2025 5:13 AM EDT POCT GLUCOSE BLOOD Routine 06/03/2025 4: 24 AM EDT SST - GOLD Routine 06/03/2025 12:00 AM EDT EXTRA TUBES Routine 06/03/2025 12:00 AM EDT POCT GLUCOSE BLOOD Routine 06/02/2025 11 :57 PM EDT HEMOGLOBIN AND HEMATOCRIT Timed 06/02/2025 8:18 PM EDT POCT GLUCOSE BLOOD Routine 06/02/2025 8: 14 PM EDT OXYGEN THERAPY, ADULT Routine 06/02/2025 8:00 PM EDT POCT GLUCOSE BLOOD Routine 06/02/2025 3: 30 PM EDT POCT GLUCOSE BLOOD Routine 06/02/2025 12 :08 PM EDT POCT GLUCOSE BLOOD Routine 06/02/2025 8: 26 AM EDT OXYGEN THERAPY, ADULT Routine 06/02/2025 8:00 AM EDT CBC WITH AUTO DIFFERENTIAL Routine 06/02/2025 5:53 AM EDT HEMOGLOBIN AND HEMATOCRIT Timed 06/02/2025 5:53 AM EDT CBC AND DIFFERENTIAL Routine 06/02/2025 5:53 AM EDT PHOSPHORUS Routine 06/02/2025 5:53 AM EDT MAGNESIUM Routine 06/02/2025 5:53 AM EDT BASIC METABOLIC PANEL Routine 06/02/2025 5:53 AM EDT POCT GLUCOSE BLOOD Routine 06/02/2025 3: 55 AM EDT POCT GLUCOSE BLOOD Routine 06/01/2025 11 :48 PM EDT HEMOGLOBIN AND HEMATOCRIT Timed 06/01/2025 8:14 PM EDT OXYGEN THERAPY, ADULT Routine 06/01/2025 8:00 PM EDT POCT GLUCOSE BLOOD Routine 06/01/2025 7: 32 PM EDT POCT GLUCOSE BLOOD Routine 06/01/2025 6: 45 PM EDT POCT GLUCOSE BLOOD Routine 06/01/2025 12 :04 PM EDT POCT GLUCOSE BLOOD Routine 06/01/2025 8: 33 AM EDT OXYGEN THERAPY, ADULT Routine 06/01/2025 8:00 AM EDT POCT GLUCOSE BLOOD Routine 06/01/2025 6: 37 AM EDT POCT GLUCOSE BLOOD Routine 06/01/2025 6 :23 AM EDT CBC WITH AUTO DIFFERENTIAL Routine 06/01/2025 5:08 AM EDT HEMOGLOBIN AND HEMATOCRIT Timed 06/01/2025 5:08 AM EDT CBC AND DIFFERENTIAL Routine 06/01/2025 5:08 AM EDT MAGNESIUM Routine 06/01/2025 5:08 AM EDT BASIC METABOLIC PANEL Routine 06/01/2025 5:08 AM EDT POCT GLUCOSE BLOOD Routine 06/01/2025 4: 06 AM EDT POCT GLUCOSE BLOOD Routine 05/31/2025 11 :58 PM EDT POCT GLUCOSE BLOOD Routine 05/31/2025 8: 30 PM EDT HEMOGLOBIN AND HEMATOCRIT Timed 05/31/2025 8:06 PM EDT OXYGEN THERAPY, ADULT Routine 05/31/2025 8:00 PM EDT POCT GLUCOSE BLOOD Routine 05/31/2025 4: 13 PM EDT PREPARE RBC Routine 05/31/2025 2:40 PM EDT POCT GLUCOSE BLOOD Routine 05/31/2025 12 :21 PM EDT POCT GLUCOSE BLOOD Routine 05/31/2025 11 :33 AM EDT HEMOGLOBIN AND HEMATOCRIT Routine 05/31/2025 10:17 AM EDT OXYGEN THERAPY, ADULT Routine 05/31/2025 8:00 AM EDT POCT GLUCOSE BLOOD Routine 05/31/2025 7: 45 AM EDT HEMODIALYSIS INPATIENT Routine 7:29 AM EDT POCT GLUCOSE BLOOD Routine 05/31/2025 4: 40 AM EDT PROTHROMBIN TIME WITH INR STAT 05/31/2025 4:15 AM EDT TYPE AND SCREEN Routine 05/31/2025 4:15 AM EDT PREPARE RBC Routine 05/31/2025 3:41 AM EDT OCCULT BLOOD STOOL, GUAIAC Routine 05/31/2025 3:07 AM EDT CBC WITH AUTO DIFFERENTIAL STAT 05/31/2025 3:07 AM EDT CBC AND DIFFERENTIAL STAT 05/31/2025 3:07 AM EDT PHOSPHORUS STAT 05/31/2025 3:07 AM EDT MAGNESIUM STAT 05/31/2025 3:07 AM EDT BASIC METABOLIC PANEL STAT 05/31/2025 3:07 AM EDT POCT GLUCOSE BLOOD Routine 05/31/2025 12 :41 AM EDT POCT GLUCOSE BLOOD Routine 05/30/2025 8: 09 PM EDT OXYGEN THERAPY, ADULT Routine 05/30/2025 8:00 PM EDT POCT GLUCOSE BLOOD Routine 05/30/2025 4: 33 PM EDT VAS US DUPLEX UPPER EXT VENOUS RIGHT Routine 05/30/2025 3:42 PM EDT Edema of right upper arm POCT GLUCOSE BLOOD Routine 05/30/2025 11 :52 AM EDT POCT GLUCOSE BLOOD Routine 05/30/2025 8: 22 AM EDT OXYGEN THERAPY, ADULT Routine 05/30/2025 8:00 AM EDT PROCALCITONIN Routine 05/30/2025 6:12 AM EDT CBC WITH AUTO DIFFERENTIAL Routine 05/30/2025 6:12 AM EDT CBC AND DIFFERENTIAL Routine 05/30/2025 6:12 AM EDT PHOSPHORUS Routine 05/30/2025 6:12 AM EDT MAGNESIUM Routine 05/30/2025 6:12 AM EDT CALCIUM, IONIZED Routine 05/30/2025 6:12 AM EDT HEPATIC FUNCTION PANEL Routine 6:12 AM EDT BASIC METABOLIC PANEL Routine 05/30/2025 6:12 AM EDT POCT GLUCOSE BLOOD Routine 05/30/2025 12 :31 AM EDT OXYGEN THERAPY, ADULT Routine 05/29/2025 8:00 PM EDT POCT GLUCOSE BLOOD Routine 05/29/2025 5: 07 PM EDT HEMODIALYSIS INPATIENT Routine 10:44 AM EDT POCT GLUCOSE BLOOD Routine 05/29/2025 8: 22 AM EDT OXYGEN THERAPY, ADULT Routine 05/29/2025 8:00 AM EDT CBC WITH AUTO DIFFERENTIAL Routine 05/29/2025 5:04 AM EDT COMPLETE BLOOD COUNT Timed 05/29/2025 5:04 AM EDT CBC AND DIFFERENTIAL Routine 05/29/2025 5:04 AM EDT PHOSPHORUS Routine 05/29/2025 5:04 AM EDT MAGNESIUM Routine 05/29/2025 5:04 AM EDT CALCIUM, IONIZED Routine 05/29/2025 5:04 AM EDT BASIC METABOLIC PANEL Routine 05/29/2025 5:04 AM EDT POCT GLUCOSE BLOOD Routine 05/28/2025 11 :27 PM EDT VENOUS BLOOD GAS Routine 05/28/2025 10:2 6 PM EDT POCT GLUCOSE BLOOD Routine 05/28/2025 10 :17 PM EDT PHOSPHORUS STAT 05/28/2025 8:51 PM EDT MAGNESIUM STAT 05/28/2025 8:51 PM EDT CALCIUM, IONIZED STAT 05/28/2025 8:51 PM EDT BASIC METABOLIC PANEL STAT 05/28/2025 8:51 PM EDT OXYGEN THERAPY, ADULT Routine 05/28/2025 8:00 PM EDT POCT GLUCOSE BLOOD Routine 05/28/2025 7: 57 PM EDT ACTIVATED PARTIAL THROMBOPLASTIN TIME STAT 05/28/2025 5:22 PM EDT PROTHROMBIN TIME WITH INR STAT 05/28/2025 5:22 PM EDT BASIC METABOLIC PANEL Routine 05/28/2025 2:27 PM EDT HEPARIN AND LOW MOLECULAR WEIGHT ANTI XA LEVEL Routine 05/28/2025 11:27 AM EDT ALBUMIN Routine 05/28/2025 9:22 AM EDT OXYGEN THERAPY, ADULT Routine 05/28/2025 8:00 AM EDT HEPARIN AND LOW MOLECULAR WEIGHT ANTI XA LEVEL Routine 05/28/2025 5:44 AM EDT CBC WITH AUTO DIFFERENTIAL Routine 05/28/2025 3:57 AM EDT CBC AND DIFFERENTIAL Routine 05/28/2025 3:57 AM EDT PHOSPHORUS Routine 05/28/2025 3:57 AM EDT MAGNESIUM Routine 05/28/2025 3:57 AM EDT LACTATE Routine 05/28/2025 3:57 AM EDT VENOUS BLOOD GAS Routine 05/28/2025 3:57 AM EDT CALCIUM, IONIZED Routine 05/28/2025 3:57 AM EDT COMPREHENSIVE METABOLIC PANEL Routine 05/28/2025 3:57 AM EDT POCT GLUCOSE BLOOD Routine 05/27/2025 11 :34 PM EDT OXYGEN THERAPY, ADULT Routine 05/27/2025 8:00 PM EDT POCT GLUCOSE BLOOD Routine 05/27/2025 7: 53 PM EDT POCT GLUCOSE BLOOD Routine 05/27/2025 5: 01 PM EDT IR INSERT TUNNELED CVC WO PORT OR PUMP MORE 5YRS LEFT Routine 05/27/2025 4:09 PM EDT CALCIUM, IONIZED Routine 05/27/2025 1:59 PM EDT POCT GLUCOSE BLOOD Routine 05/27/2025 11 :14 AM EDT HEMODIALYSIS INPATIENT Routine 10:45 AM EDT OXYGEN THERAPY, ADULT Routine 05/27/2025 8:00 AM EDT POCT GLUCOSE BLOOD Routine 05/27/2025 8: 00 AM EDT CBC WITH AUTO DIFFERENTIAL Routine 05/27/2025 4:17 AM EDT CBC AND DIFFERENTIAL Routine 05/27/2025 4:17 AM EDT PHOSPHORUS Routine 05/27/2025 4:17 AM EDT MAGNESIUM Routine 05/27/2025 4:17 AM EDT VENOUS BLOOD GAS Routine 05/27/2025 4:17 AM EDT CALCIUM, IONIZED Routine 05/27/2025 4:17 AM EDT COMPREHENSIVE METABOLIC PANEL Routine 05/27/2025 4:17 AM EDT POCT GLUCOSE BLOOD Routine 05/27/2025 12 :13 AM EDT OXYGEN THERAPY, ADULT Routine 05/26/2025 8:00 PM EDT PHOSPHORUS Routine 05/26/2025 7:30 PM EDT MAGNESIUM Routine 05/26/2025 7:30 PM EDT CALCIUM, IONIZED Routine 05/26/2025 7:30 PM EDT BASIC METABOLIC PANEL Routine 05/26/2025 7:30 PM EDT POCT GLUCOSE BLOOD Routine 05/26/2025 6: 03 PM EDT POCT GLUCOSE BLOOD Routine 05/26/2025 2: 50 PM EDT TRANSTHORACIC ECHOCARDIOGRAM (TTE) COMPLETE Routine 05/26/2025 1:11 PM EDT Cardiomyopathy, unspecified type (CMS/HCC V24, CMS/HCC V28) PHOSPHORUS Routine 05/26/2025 11:41 AM EDT MAGNESIUM Routine 05/26/2025 11:41 AM EDT CALCIUM, IONIZED Routine 05/26/2025 11:4 1 AM EDT BASIC METABOLIC PANEL Routine 05/26/2025 11:41 AM EDT POCT GLUCOSE BLOOD Routine 05/26/2025 9: 54 AM EDT POCT GLUCOSE BLOOD Routine 05/26/2025 8: 22 AM EDT OXYGEN THERAPY, ADULT Routine 05/26/2025 8:00 AM EDT VENOUS BLOOD GAS Routine 05/26/2025 6:14 AM EDT HEPARIN AND LOW MOLECULAR WEIGHT ANTI XA LEVEL Routine 05/26/2025 5:33 AM EDT PHOSPHORUS Routine 05/26/2025 5:33 AM EDT MAGNESIUM Routine 05/26/2025 5:33 AM EDT COMPREHENSIVE METABOLIC PANEL Routine 05/26/2025 5:33 AM EDT CBC WITH AUTO DIFFERENTIAL Routine 05/26/2025 3:59 AM EDT CBC AND DIFFERENTIAL Routine 05/26/2025 3:59 AM EDT LACTATE Routine 05/26/2025 3:59 AM EDT CALCIUM, IONIZED Routine 05/26/2025 3:59 AM EDT POCT GLUCOSE BLOOD Routine 05/26/2025 2: 00 AM EDT PHOSPHORUS Routine 05/25/2025 11:47 PM EDT MAGNESIUM Routine 05/25/2025 11:47 PM EDT CALCIUM, IONIZED Routine 05/25/2025 11:4 7 PM EDT BASIC METABOLIC PANEL Routine 05/25/2025 11:47 PM EDT HEPARIN AND LOW MOLECULAR WEIGHT ANTI XA LEVEL Routine 05/25/2025 10:53 PM EDT OXYGEN THERAPY, ADULT Routine 05/25/2025 8:00 PM EDT POCT GLUCOSE BLOOD Routine 05/25/2025 7: 21 PM EDT MAGNESIUM Routine 05/25/2025 6:23 PM EDT CALCIUM, IONIZED Routine 05/25/2025 6:23 PM EDT DIGOXIN LEVEL Timed 05/25/2025 6:23 PM EDT COMPREHENSIVE METABOLIC PANEL Routine 05/25/2025 6:23 PM EDT POCT GLUCOSE BLOOD Routine 05/25/2025 3: 52 PM EDT HEPARIN AND LOW MOLECULAR WEIGHT ANTI XA LEVEL Routine 05/25/2025 3:47 PM EDT POCT GLUCOSE BLOOD Routine 05/25/2025 1: 59 PM EDT MAGNESIUM Routine 05/25/2025 1:50 PM EDT COMPREHENSIVE METABOLIC PANEL Routine 05/25/2025 1:50 PM EDT POCT GLUCOSE BLOOD Routine 05/25/2025 12 :08 PM EDT POCT GLUCOSE BLOOD Routine 05/25/2025 11 :48 AM EDT POCT GLUCOSE BLOOD Routine 05/25/2025 11 :28 AM EDT POCT GLUCOSE BLOOD Routine 05/25/2025 8: 21 AM EDT OXYGEN THERAPY, ADULT Routine 05/25/2025 8:00 AM EDT CBC WITH AUTO DIFFERENTIAL Routine 05/25/2025 5:59 AM EDT ACTIVATED PARTIAL THROMBOPLASTIN TIME Routine 05/25/2025 5:59 AM EDT PROTHROMBIN TIME WITH INR Routine 05/25/2025 5:59 AM EDT CBC AND DIFFERENTIAL Routine 05/25/2025 5:59 AM EDT PHOSPHORUS Routine 05/25/2025 5:59 AM EDT MAGNESIUM Routine 05/25/2025 5:59 AM EDT HEMOGLOBIN A1C Add-On 05/25/2025 5:59 AM EDT CALCIUM, IONIZED Routine 05/25/2025 5:59 AM EDT HEPATIC FUNCTION PANEL Routine 5:59 AM EDT BASIC METABOLIC PANEL Routine 05/25/2025 5:59 AM EDT POCT GLUCOSE BLOOD Routine 05/25/2025 4: 13 AM EDT POCT GLUCOSE BLOOD Routine 05/25/2025 2: 16 AM EDT HEPARIN AND LOW MOLECULAR WEIGHT ANTI XA LEVEL Routine 05/25/2025 1:14 AM EDT POCT GLUCOSE BLOOD Routine 05/25/2025 12 :27 AM EDT POCT GLUCOSE BLOOD Routine 05/24/2025 11 :12 PM EDT POCT GLUCOSE BLOOD Routine 05/24/2025 8: 53 PM EDT OXYGEN THERAPY, ADULT Routine 05/24/2025 8:00 PM EDT POCT GLUCOSE BLOOD Routine 05/24/2025 7: 56 PM EDT POCT GLUCOSE BLOOD Routine 05/24/2025 6: 49 PM EDT POCT GLUCOSE BLOOD Routine 05/24/2025 6: 17 PM EDT HEPARIN AND LOW MOLECULAR WEIGHT ANTI XA LEVEL Routine 05/24/2025 6:06 PM EDT URINALYSIS MICROSCOPIC ONLY Routine 05/24/2025 5:12 PM EDT URINALYSIS MICROSCOPIC ONLY Routine 05/24/2025 5:12 PM EDT POCT GLUCOSE BLOOD Routine 05/24/2025 5: 10 PM EDT HEPATITIS B SURFACE ANTIGEN WITH CONFIRMATION Routine 05/24/2025 2:05 PM EDT TREPONEMA PALLIDUM ANTIBODY WITH REFLEX TO RPR AND PARTICLE AGGLUTINATION Routine 05/24/2025 2:05 PM EDT THYROID STIMULATING HORMONE WITH REFLEX TO FREE T4 AND FREE T3 Routine 05/24/2025 2:05 PM EDT PROCALCITONIN Routine 05/24/2025 2:05 PM EDT HEPATITIS B SURFACE ANTIBODY QUANTITATIVE Routine 05/24/2025 2:05 PM EDT FOLATE Routine 05/24/2025 2:05 PM EDT VITAMIN B12 Routine 05/24/2025 2:05 PM EDT CORTISOL Routine 05/24/2025 2:05 PM EDT POCT GLUCOSE BLOOD Routine 05/24/2025 11 :43 AM EDT POCT GLUCOSE BLOOD Routine 05/24/2025 10 :37 AM EDT POCT GLUCOSE BLOOD Routine 05/24/2025 9: 42 AM EDT VITAMIN D 1,25 DIHYDROXY Routine 05/24/2025 9:11 AM EDT ANGIOTENSIN CONVERTING ENZYME Routine 05/24/2025 9:11 AM EDT POCT GLUCOSE BLOOD Routine 05/24/2025 8: 26 AM EDT OXYGEN THERAPY, ADULT Routine 05/24/2025 8:00 AM EDT POCT GLUCOSE BLOOD Routine 05/24/2025 7: 30 AM EDT POCT GLUCOSE BLOOD Routine 05/24/2025 6: 26 AM EDT POCT GLUCOSE BLOOD Routine 05/24/2025 5: 26 AM EDT POCT GLUCOSE BLOOD Routine 05/24/2025 5: 14 AM EDT POCT GLUCOSE BLOOD Routine 05/24/2025 5: 11 AM EDT POCT GLUCOSE BLOOD Routine 05/24/2025 5: 05 AM EDT CBC WITH AUTO DIFFERENTIAL Routine 05/24/2025 2:37 AM EDT HEPARIN AND LOW MOLECULAR WEIGHT ANTI XA LEVEL Timed 05/24/2025 2:37 AM EDT COMPLETE BLOOD COUNT Timed 05/24/2025 2:37 AM EDT CBC AND DIFFERENTIAL Routine 05/24/2025 2:37 AM EDT PHOSPHORUS Routine 05/24/2025 2:37 AM EDT MAGNESIUM Routine 05/24/2025 2:37 AM EDT BASIC METABOLIC PANEL Routine 05/24/2025 2:37 AM EDT POCT GLUCOSE BLOOD Routine 05/24/2025 2: 36 AM EDT POCT GLUCOSE BLOOD Routine 05/24/2025 12 :49 AM EDT POCT GLUCOSE BLOOD Routine 05/24/2025 12 :39 AM EDT BASIC METABOLIC PANEL Routine 05/24/2025 12:25 AM EDT HEPARIN AND LOW MOLECULAR WEIGHT ANTI XA LEVEL Timed 05/24/2025 12:18 AM EDT EXTRA TUBES Routine 05/24/2025 12:17 AM EDT LAVENDER - EDTA Routine 05/24/2025 12:17 AM EDT POCT GLUCOSE BLOOD Routine 05/23/2025 11 :55 PM EDT POCT GLUCOSE BLOOD Routine 05/23/2025 11 :46 PM EDT POCT GLUCOSE BLOOD Routine 05/23/2025 11 :21 PM EDT OXYGEN THERAPY, ADULT Routine 05/23/2025 8:00 PM EDT HEPARIN AND LOW MOLECULAR WEIGHT ANTI XA LEVEL Timed 05/23/2025 5:48 PM EDT POTASSIUM STAT 05/23/2025 3:54 PM EDT ACTIVATED PARTIAL THROMBOPLASTIN TIME STAT 05/23/2025 12:05 PM EDT PROTHROMBIN TIME WITH INR STAT 05/23/2025 12:05 PM EDT HEPARIN AND LOW MOLECULAR WEIGHT ANTI XA LEVEL STAT 05/23/2025 12:05 PM EDT HEMODIALYSIS INPATIENT Routine 11:35 AM EDT XR CHEST 1 VIEW STAT 05/23/2025 10:22 AM EDT POCT GLUCOSE BLOOD Routine 05/23/2025 9: 16 AM EDT POCT GLUCOSE BLOOD Routine 05/23/2025 8: 54 AM EDT OXYGEN THERAPY, ADULT Routine 05/23/2025 8:00 AM EDT CBC WITH AUTO DIFFERENTIAL Routine 05/23/2025 5:49 AM EDT CBC AND DIFFERENTIAL Routine 05/23/2025 5:49 AM EDT BASIC METABOLIC PANEL Routine 05/23/2025 5:49 AM EDT OXYGEN THERAPY, ADULT Routine 05/22/2025 8:00 PM EDT OXYGEN THERAPY, ADULT Routine 05/22/2025 8:00 AM EDT EXTRA TUBES Routine 05/22/2025 5:52 AM EDT CBC WITH AUTO DIFFERENTIAL Routine 05/22/2025 5:52 AM EDT LT BLUE - NA CITRATE Routine 05/22/2025 5:52 AM EDT CBC AND DIFFERENTIAL Routine 05/22/2025 5:52 AM EDT BASIC METABOLIC PANEL Routine 05/22/2025 5:52 AM EDT OXYGEN THERAPY, ADULT Routine 05/21/2025 8:00 PM EDT CULTURE BLOOD Routine 05/21/2025 8:57 AM EDT CULTURE BLOOD Routine 05/21/2025 8:57 AM EDT OXYGEN THERAPY, ADULT Routine 05/21/2025 8:00 AM EDT CBC WITH AUTO DIFFERENTIAL Routine 05/21/2025 6:13 AM EDT ACTIVATED PARTIAL THROMBOPLASTIN TIME Timed 05/21/2025 6:13 AM EDT CBC AND DIFFERENTIAL Routine 05/21/2025 6:13 AM EDT BASIC METABOLIC PANEL Routine 05/21/2025 6:13 AM EDT URINALYSIS WITH REFLEX MICROSCOPIC AND CULTURE STAT 05/21/2025 5:09 AM EDT PONCE URINE CULTURE TUBE STAT 05/21/2025 5:09 AM EDT SODIUM, URINE, RANDOM STAT 05/21/2025 5:09 AM EDT OSMOLALITY, URINE Routine 05/21/2025 5:0 9 AM EDT CREATININE, URINE, RANDOM STAT 05/21/2025 5:09 AM EDT URINALYSIS WITH REFLEX MICROSCOPIC AND CULTURE STAT 05/21/2025 5:09 AM EDT POCT GLUCOSE BLOOD Routine 05/21/2025 3: 55 AM EDT ACTIVATED PARTIAL THROMBOPLASTIN TIME STAT 05/20/2025 11:00 PM EDT HEPARIN AND LOW MOLECULAR WEIGHT ANTI XA LEVEL Timed 05/20/2025 11:00 PM EDT OXYGEN THERAPY, ADULT Routine 05/20/2025 8:00 PM EDT HEPARIN AND LOW MOLECULAR WEIGHT ANTI XA LEVEL Timed 05/20/2025 4:36 PM EDT TISSUE EXAM Routine 05/20/2025 12:35 PM EDT Acute metabolic encephalopathy Hypercalcemia Cardiomyopathy, unspecified type (CMS/HCC V24, CMS/HCC V28) IR BX BONE TROCAR/NDL DEEP Routine 05/20/2025 12:28 PM EDT OXYGEN THERAPY, ADULT Routine 05/20/2025 8:00 AM EDT LAVENDER - EDTA Routine 05/20/2025 7:46 AM EDT MAGNESIUM Routine 05/20/2025 7:46 AM EDT HEPATIC FUNCTION PANEL Routine 7:46 AM EDT BASIC METABOLIC PANEL Routine 05/20/2025 7:46 AM EDT EXTRA TUBES Routine 05/20/2025 7:45 AM EDT LT BLUE - NA CITRATE Routine 05/20/2025 7:45 AM EDT CBC WITH AUTO DIFFERENTIAL Routine 05/20/2025 5:36 AM EDT COMPLETE BLOOD COUNT Timed 05/20/2025 5:36 AM EDT CBC AND DIFFERENTIAL Routine 05/20/2025 5:36 AM EDT OXYGEN THERAPY, ADULT Routine 05/19/2025 8:00 PM EDT BASIC METABOLIC PANEL STAT 05/19/2025 3:54 PM EDT OXYGEN THERAPY, ADULT Routine 05/19/2025 8:00 AM EDT EXTRA TUBES Routine 05/19/2025 5:37 AM EDT LAVENDER - EDTA Routine 05/19/2025 5:37 AM EDT ACTIVATED PARTIAL THROMBOPLASTIN TIME Routine 05/19/2025 5:37 AM EDT MAGNESIUM Routine 05/19/2025 5:37 AM EDT BASIC METABOLIC PANEL Routine 05/19/2025 5:37 AM EDT OXYGEN THERAPY, ADULT Routine 05/18/2025 8:00 PM EDT XR ABDOMEN 1 VIEW Routine 05/18/2025 3:3 3 PM EDT MR BRAIN WO AND W CONTRAST Routine 05/18/2025 2:01 PM EDT EXTRA TUBES Routine 05/18/2025 10:11 AM EDT LAVENDER - EDTA Routine 05/18/2025 10:11 AM EDT ACTIVATED PARTIAL THROMBOPLASTIN TIME Timed 05/18/2025 10:11 AM EDT DIGOXIN LEVEL Timed 05/18/2025 10:11 AM EDT OXYGEN THERAPY, ADULT Routine 05/18/2025 10:03 AM EDT OXYGEN THERAPY, ADULT Routine 05/18/2025 10:03 AM EDT OXYGEN THERAPY, ADULT Routine 05/18/2025 10:03 AM EDT EXTRA TUBES Routine 05/18/2025 4:24 AM EDT LAVENDER - EDTA Routine 05/18/2025 4:24 AM EDT ACTIVATED PARTIAL THROMBOPLASTIN TIME Timed 05/18/2025 4:24 AM EDT MAGNESIUM Routine 05/18/2025 4:24 AM EDT BASIC METABOLIC PANEL Routine 05/18/2025 4:24 AM EDT ACTIVATED PARTIAL THROMBOPLASTIN TIME Timed 05/17/2025 9:11 PM EDT DIGOXIN LEVEL Timed 05/17/2025 9:11 PM EDT ACTIVATED PARTIAL THROMBOPLASTIN TIME Timed 05/17/2025 7:14 PM EDT NM BONE/JOINT SCAN WHOLE BODY Routine 05/17/2025 3:09 PM EDT ACTIVATED PARTIAL THROMBOPLASTIN TIME Timed 05/17/2025 12:42 PM EDT ACTIVATED PARTIAL THROMBOPLASTIN TIME Timed 05/17/2025 6:17 AM EDT COMPLETE BLOOD COUNT Timed 05/17/2025 6:17 AM EDT CALCIUM, IONIZED Routine 05/17/2025 6:11 AM EDT BASIC METABOLIC PANEL Routine 05/17/2025 6:11 AM EDT ACTIVATED PARTIAL THROMBOPLASTIN TIME Timed 05/17/2025 12:54 AM EDT ACTIVATED PARTIAL THROMBOPLASTIN TIME Timed 05/16/2025 6:[address] CHEST/ABDOMEN/PELVIS W CONTRAST STAT 05/16/2025 1:55 PM EDT PARATHYROID HORMONE RELATED PROTEIN Routine 05/16/2025 12:42 PM EDT ACTIVATED PARTIAL THROMBOPLASTIN TIME STAT 05/16/2025 12:41 PM EDT HEPARIN AND LOW MOLECULAR WEIGHT ANTI XA LEVEL STAT 05/16/2025 12:41 PM EDT PARATHYROID HORMONE INTACT Add-On 05/16/2025 12:41 PM EDT KAPPA-LAMBDA QUANTITATIVE FREE LIGHT CHAINS Routine 05/16/2025 5:52 AM EDT CBC WITH AUTO DIFFERENTIAL Routine 05/16/2025 5:52 AM EDT CBC AND DIFFERENTIAL Routine 05/16/2025 5:52 AM EDT CALCIUM, IONIZED Routine 05/16/2025 5:52 AM EDT HEPATIC FUNCTION PANEL Routine 5:52 AM EDT BASIC METABOLIC PANEL Routine 05/16/2025 5:52 AM EDT ECG ANNOTATED 05/16/2025 MT PROTEIN ELECTROPHORETIC FRACTIONATION & QUANTITATION SERUM Routine 05/15/2025 11:14 PM EDT HEPATITIS PANEL, ACUTE WITH REFLEX TO CONFIRMATION Routine 05/15/2025 11:14 PM EDT PROTEIN ELECTROPHORESIS, SERUM Routine 05/15/2025 11:14 PM EDT PROTEIN, TOTAL Routine 05/15/2025 11:14 PM EDT ALBUMIN Add-On 05/15/2025 11:14 PM EDT BASIC METABOLIC PANEL Add-On 05/15/2025 11:14 PM EDT XR HUMERUS 2+ VIEWS RIGHT STAT 05/15/2025 10:[address] HEAD WO CONTRAST STAT 05/15/2025 7 :18 PM EDT PROTHROMBIN TIME WITH INR STAT 05/15/2025 6:17 PM EDT XR CHEST 1 VIEW STAT 05/15/2025 6:15 PM EDT IMMUNOGLOBULINS IGG, IGA, IGM, IGE Add-On 05/15/2025 5:36 PM EDT CBC WITH AUTO DIFFERENTIAL STAT 05/15/2025 5:36 PM EDT CBC AND DIFFERENTIAL STAT 05/15/2025 5:36 PM EDT C REACTIVE PROTEIN, HIGH SENSITIVITY STAT Add-on 05/15/2025 5:36 PM EDT URIC ACID Add-On 05/15/2025 5:36 PM EDT THYROID STIMULATING HORMONE STAT Add-on 05/15/2025 5:36 PM EDT B-TYPE NATRIURETIC PEPTIDE STAT 05/15/2025 5:36 PM EDT LACTATE DEHYDROGENASE Add-On 05/15/2025 5:36 PM EDT BETA 2 MICROGLOBULIN, SERUM Add-On 05/15/2025 5:36 PM EDT DIGOXIN LEVEL Timed 05/15/2025 5:36 PM EDT COMPREHENSIVE METABOLIC PANEL STAT Add-on 05/15/2025 5:36 PM EDT ECG 12-LEAD STAT 05/15/2025 5:24 PM EDT documented in this encounter Results * (ABNORMAL) POCT Glucose, blood (06/05/2025 4:03 PM EDT) Glucose POCT 118(H) 70 - 100 mg/dL 06/05/2025 4:04 PM EDT [facility] Blood Capillary blood specimen / Unknown 06/05/2025 4:03 PM EDT 06/05/2025 4:05 PM EDT us Kia Le MD LAB POINT OF CARE TE ST DOCKED DEVICE UNSOLICITED RESULTS Final Result [facility] [address] [place] [address], [place] [phone] * IR Remove Tunneled CVC wo Subq Port or Pump (06/05/2025 3:48 PM EDT) Anatomical Region Laterality Modality N/A Interventional R adiology 06/05/2025 3:48 PM EDT Impressions 06/05/2025 4:22 PM EDT Successful bedside removal of right-sided hemodialysis catheter. -------- FINAL REPORT -------- Dictated By: Sharon Hassan Dictated Date: 06/05/2025 15:48 ET Assigned Physician: Luis Alfredo Bains Reviewed and Electronically Signed By: Luis Alfredo Bains Signed Date: 06/05/2025 16:22 ET Workstation ID: [id number] Transcribed By: Self Edit Transcribed Date: 06/05/2025 15:52 ET Resident/PA/DEPARTMENT TRAFFIC FREIGHT ROUTER: Sharon Hassan Narrative 06/05/2025 4:22 PM EDT INDICATION: HD catheter removal HISTORY: Patient is an 79-year-old female with history of acute kidney injury. No longer needs dialysis. TECHNIQUE: Bedside hemodialysis catheter removal was performed. The area overlying the right-sided hemodialysis catheter was cleaned and prepped with ChloraPrep solution. Pursestring suture at the catheter exit site was cut and removed in its entirety. The catheter was then easily removed in its entirety with no resistance at the cuff. A local anesthetic was not used. A clean and dry dressing was applied to the exit site. Pressure applied to the area of the IJ over several minutes. Good hemostasis. Patient tolerated the procedure very well without any complication. Procedure Note Luis Alfredo Bains MD - 06/05/2025 INDICATION: HD catheter removal HISTORY: Patient is an 79-year-old female with history of acute kidneyinjury. No longer needs dialysis. TECHNIQUE: Bedside hemodialysis catheter removal was performed. The areaoverlying the right-sided hemodialysis catheter was cleaned and preppedwith ChloraPrep solution. Pursestring suture at the catheter exit site wascut and removed in its entirety. The catheter was then easily removed inits entirety with no resistance at the cuff. A local anesthetic was notused. A clean and dry dressing was applied to the exit site. Pressureapplied to the area of the IJ over several minutes. Good hemostasis. Patient tolerated the procedure very well without any complication. IMPRESSION: Successful bedside removal of right-sided hemodialysis catheter. -------- FINAL REPORT -------- Dictated By: Sharon Hassan Dictated Date: 06/05/2025 15:48 ET Assigned Physician: Luis Alfredo Bains Reviewed and Electronically Signed By: Luis Alfredo Bains Signed Date: 06/05/2025 16:22 ET Workstation ID: [id number] Transcribed By: Self Edit Transcribed Date: 06/05/2025 15:52 ET Resident/PA/DEPARTMENT TRAFFIC FREIGHT ROUTER: Sharon Hassan us Carlos Alberto Islas MD [facility] [place] Final Result * (ABNORMAL) POCT Glucose, blood (06/05/2025 11:29 AM EDT) Pathologist [facility] Glucose POCT 123(H) 70 - 100 mg/dL 06/05/2025 11:29 AM EDT [facility] Blood Capillary blood specimen / Unknown 06/05/2025 11:29 AM EDT 06/05/2025 11:30 AM EDT Kia Le MD LAB POINT OF CARE TE ST DOCKED DEVICE UNSOLICITED RESULTS Final Result [facility] [address] [place] [address], [place] [phone] * (ABNORMAL) POCT Glucose, blood (06/05/2025 7:50 AM EDT) [facility] Glucose POCT 67(L) 70 - 100 mg/dL 06/05/2025 7:51 AM EDT [facility] Blood Capillary blood specimen / Unknown 06/05/2025 7:50 AM EDT 06/05/2025 7:52 AM EDT us Kia Le MD LAB POINT OF CARE TE ST DOCKED DEVICE UNSOLICITED RESULTS Final Result Performing Organization Address [facility] de Phone Number [facility] [address] [place] [address], [place] [phone] * (ABNORMAL) Hemoglobin and hematocrit (06/05/2025 5:29 AM EDT) [facility] Hemoglobin 7.7(L) 11.5 - 16.0 g/dL LAB HEMETOLOGY METHOD 06/05/2025 6:39 AM EDT [facility] Hematocrit 25.5(L) 35.0 - 47.0 % LAB HEMETOLOGY METHOD 06/05/2025 6:39 AM EDT [facility] Blood Venous blood specimen / Unknown Venipuncture / Unknown 06/05/2025 5:29 AM EDT 06/05/2025 6:22 AM EDT us Kia Le MD LAB BLOOD ORDERABLES Final Resul t Performing Organization Address [facility]/ZIP Co de Phone Number [facility] [address] [place] [address], [place] [phone] * (ABNORMAL) CBC auto differential (06/05/2025 5:29 AM EDT) [facility] WBC 10.0 4.8 - 10.8 K/[facility] LAB HEMETOLOGY METHOD 06/05/2025 6:39 AM [facility] RBC 2.80(L) 3.80 - 4.80 M/[facility] LAB HEMETOLOGY METHOD 06/05/2025 6:39 AM [facility] Hemoglobin 7.7(L) 11.5 - 16.0 g/dL LAB HEMETOLOGY METHOD 06/05/2025 6:39 AM [facility] Hematocrit 25.5(L) 35.0 - 47.0 % LAB HEMETOLOGY METHOD 06/05/2025 6:39 AM [facility] MCV 92.7 79.0 - 98.0 FL LAB HEMETOLOGY METHOD 06/05/2025 6:39 AM [facility] MCH 28.0 27.0 - 32.0 pcg LAB HEMETOLOGY METHOD 06/05/2025 6:39 AM [facility] MCHC 30.2(L) 32.0 - 37.0 g/dL LAB HEMETOLOGY METHOD 06/05/2025 6:39 AM [facility] RDW 22.7(H) 11.0 - 15.0 % LAB HEMETOLOGY METHOD 06/05/2025 6:39 AM [facility] Platelets 206 130 - 400 K/[facility] HEMETOLOGY METHOD 06/05/2025 6:39 AM [facility] MPV 10.9 7.0 - 11.0 FL LAB HEMETOLOGY METHOD 06/05/2025 6:39 AM [facility] NRBC 0.0 <1.0 % LAB HEMETOLOGY METHOD 06/05/2025 6:39 AM [facility] NRBC Absolute 0.00 <0.10 K/[facility] HEMETOLOGY METHOD 06/05/2025 6:39 AM [facility] Neutrophils Relative 68.9 % LAB HEMETOLOGY METHOD 06/05/2025 6:39 AM [facility] Lymphocytes Relative 17.6 % LAB HEMETOLOGY METHOD 06/05/2025 6:39 AM [facility] Monocytes Relative 9.9 % LAB HEMETOLOGY METHOD 06/05/2025 6:39 AM [facility] Eosinophils Relative 2.5 % LAB HEMETOLOGY METHOD 06/05/2025 6:39 AM [facility] Basophils Relative 0.5 % LAB HEMETOLOGY METHOD 06/05/2025 6:39 AM [facility] Immature Granulocytes Relative 0.6 % LAB HEMETOLOGY METHOD 06/05/2025 6:39 AM [facility] Neutrophils Absolute 6.91 1.50 - 7.00 K/mcL LAB HEMETOLOGY METHOD 06/05/2025 6:39 AM [facility] Lymphocytes Absolute 1.77 1.00 - 5.00 K/mcL LAB HEMETOLOGY METHOD 06/05/2025 6:39 AM [facility] Monocytes Absolute 0.99 0.20 - 1.00 K/mcL LAB HEMETOLOGY METHOD 06/05/2025 6:39 AM [facility] Eosinophils Absolute 0.25 0.00 - 0.50 K/mcL LAB HEMETOLOGY METHOD 06/05/2025 6:39 AM [facility] Basophils Absolute 0.05 0.00 - 0.20 K/mcL LAB HEMETOLOGY METHOD 06/05/2025 6:39 AM [facility] Immature Granulocytes Absolute 0.06(H) 0.00 - 0.03 K/mcL LAB HEMETOLOGY METHOD 06/05/2025 6:39 AM [facility] Blood Venous blood specimen / Unknown Venipuncture / Unknown 06/05/2025 5:29 AM EDT 06/05/2025 6:22 AM EDT us Kia Le MD LAB BLOOD ORDERABLES Final Resul t Performing Organization Address City/[facility]/ZIP Co de Phone Number [facility] [address] [place] [address], [place] [phone] * Magnesium (06/05/2025 5:29 AM EDT) Magnesium 1.9 1.9 - 2.6 mg/dL LAB CHEMISTRY METHOD 06/05/2025 7:04 AM EDT [facility] Blood Venous blood specimen / Unknown Venipuncture / Unknown 06/05/2025 5:29 AM EDT 06/05/2025 6:22 AM EDT us Kia Le MD LAB BLOOD ORDERABLES Final Resul t Performing Organization Address City/[facility]/ZIP Co de Phone Number [facility] [address] [place] [address], [place] [phone] * (ABNORMAL) Basic metabolic panel (06/05/2025 5:29 AM EDT) Pathologist [facility] Sodium 145 133 - 145 mmol/L LAB CHEMISTRY METHOD 06/05/2025 7:04 AM EDT [facility] Potassium 3.2(L) 3.5 - 5.5 mmol/L LAB CHEMISTRY METHOD 06/05/2025 7:04 AM EDT [facility] Chloride 110 96 - 110 mmol/L LAB CHEMISTRY METHOD 06/05/2025 7:04 AM EDT [facility] CO2 28 21 - 32 mmol/L LAB CHEMISTRY METHOD 06/05/2025 7:04 AM EDT [facility] Anion Gap 7 3 - 11 LAB CHEMISTRY METHOD 06/05/2025 7:04 AM EDT [facility] Glucose 84 70 - 100 mg/dL LAB CHEMISTRY METHOD 06/05/2025 7:04 AM EDT [facility] BUN 20 5 - 25 mg/dL LAB CHEMISTRY METHOD 06/05/2025 7:04 AM EDT [facility] Creatinine 2.95(H) 0.50 - 1.10 mg/dL LAB CHEMISTRY METHOD 06/05/2025 7:04 AM EDT [facility] eGFR 16(L) >=60 mL/min/1. 73m2 LAB CHEMISTRY METHOD 06/05/2025 7:04 AM EDT [facility] Comment:Calculation based on the Chronic Kidney Disease Epidemiology Collaboration (CKD-EPI) equation refit without adjustment for race. BUN/Creatinine Ratio 6.8 LAB CHEMISTRY METHOD 06/05/2025 7:04 AM EDT [facility] Calcium 7.6(L) 8.5 - 10.5 mg/dL LAB CHEMISTRY METHOD 06/05/2025 7:04 AM EDT [facility] Blood Venous blood specimen / Unknown Venipuncture / Unknown 06/05/2025 5:29 AM EDT 06/05/2025 6:22 AM EDT us Kia Le MD LAB BLOOD ORDERABLES Final Resul t [facility] [address] [place] [address], [place] [phone] * POCT Glucose, blood (06/05/2025 4:07 AM EDT) Glucose POCT 99 70 - 100 mg/dL 06/05/2025 4:08 AM EDT [facility] Blood Capillary blood specimen / Unknown 06/05/2025 4:07 AM EDT 06/05/2025 4:09 AM EDT us Kia Le MD LAB POINT OF CARE TE ST DOCKED DEVICE UNSOLICITED RESULTS Final Result Performing Organization Address [facility]/ZIP Co de Phone Number [facility] [address] [place] [address], [place] [phone] * (ABNORMAL) POCT Glucose, blood (06/05/2025 4:01 AM EDT) Glucose POCT <10(LL) 70 - 100 mg/dL 06/05/2025 4:03 AM EDT [facility] POCT Comment Retest by POCT 06/05/2025 4:03 AM EDT [facility] Blood Capillary blood specimen / Unknown 06/05/2025 4:01 AM EDT 06/05/2025 4:04 AM EDT us Kia Le MD LAB POINT OF CARE TE ST DOCKED DEVICE UNSOLICITED RESULTS Final Result Performing Organization Address [facility] de Phone Number [facility] [address] [place] [address], [place] [phone] * (ABNORMAL) Hemoglobin and hematocrit (06/04/2025 8:55 PM EDT) [facility] Hemoglobin 8.1(L) 11.5 - 16.0 g/dL LAB HEMETOLOGY METHOD 06/04/2025 9:27 PM EDT [facility] Hematocrit 26.5(L) 35.0 - 47.0 % LAB HEMETOLOGY METHOD 06/04/2025 9:27 PM EDT [facility] Blood Venous blood specimen / Unknown Venipuncture / Unknown 06/04/2025 8:55 PM EDT 06/04/2025 9:19 PM EDT us Kia Le MD LAB BLOOD ORDERABLES Final Resul t Performing Organization Address [facility]/ZIP Co de Phone Number [facility] [address] [place] [address], [place] [phone] * (ABNORMAL) POCT Glucose, blood (06/04/2025 8:45 PM EDT) Glucose POCT 144(H) 70 - 100 mg/dL 06/04/2025 8:45 PM EDT [facility] Blood Capillary blood specimen / Unknown 06/04/2025 8:45 PM EDT 06/04/2025 8:47 PM EDT us Kia Le MD LAB POINT OF CARE TE ST DOCKED DEVICE UNSOLICITED RESULTS Final Result [facility] [address] [place] [address], [place] [phone] * (ABNORMAL) POCT Glucose, blood (06/04/2025 4:11 PM EDT) Glucose POCT 138(H) 70 - 100 mg/dL 06/04/2025 4:12 PM EDT [facility] Blood Capillary blood specimen / Unknown 06/04/2025 4:11 PM EDT 06/04/2025 4:13 PM EDT us Kia Le MD LAB POINT OF CARE TE ST DOCKED DEVICE UNSOLICITED RESULTS Final Result [facility] [address] [place] [address], [place] [phone] * POCT Glucose, blood (06/04/2025 12:12 PM EDT) Glucose POCT 98 70 - 100 mg/dL 06/04/2025 12:12 PM EDT [facility] Blood Capillary blood specimen / Unknown 06/04/2025 12:12 PM EDT 06/04/2025 12:15 PM EDT us Kia Le MD LAB POINT OF CARE TE ST DOCKED DEVICE UNSOLICITED RESULTS Final Result Performing Organization Address City/[facility]/ZIP Co de Phone Number [facility] [address] [place] [address], [place] [phone] * (ABNORMAL) Calcium, ionized (06/04/2025 10:21 AM EDT) Calcium Ionized 4.09(L) 4.50 - 5.30 mg/dL 06/04/2025 11:21 AM EDT [facility] Blood Venous blood specimen / Unknown Venipuncture / Unknown 06/04/2025 10:21 AM EDT 06/04/2025 11:09 AM EDT us Kia Le MD LAB BLOOD ORDERABLES Final Resul t Performing Organization Address [facility]/ZIP Co de Phone Number [facility] [address] [place] [address], [place] [phone] * POCT Glucose, blood (06/04/2025 7:57 AM EDT) [facility] Glucose POCT 91 70 - 100 mg/dL 06/04/2025 8:39 AM EDT [facility] Blood Capillary blood specimen / Unknown 06/04/2025 7:57 AM EDT 06/04/2025 8:40 AM EDT us Kia Le MD LAB POINT OF CARE TE ST DOCKED DEVICE UNSOLICITED RESULTS Final Result [facility] [address] [place] [address], [place] [phone] * (ABNORMAL) Albumin (06/04/2025 5:55 AM EDT) Albumin 2.4(L) 3.2 - 5.0 g/dL LAB CHEMISTRY METHOD 06/04/2025 9:51 AM EDT [facility] Blood Venous blood specimen / Unknown Venipuncture / Unknown 06/04/2025 5:55 AM EDT 06/04/2025 6:16 AM EDT us Kia Le MD LAB BLOOD ORDERABLES Final Resul t Performing Organization Address [facility] Co de Phone Number [facility] [address] [place] [address], * (ABNORMAL) Hemoglobin and hematocrit (06/04/2025 5:55 AM EDT) Hemoglobin 8.0(L) 11.5 - 16.0 g/dL LAB HEMETOLOGY METHOD 06/04/2025 6:26 AM EDT [facility] Hematocrit 25.9(L) 35.0 - 47.0 % LAB HEMETOLOGY METHOD 06/04/2025 6:26 AM EDT [facility] Blood Venous blood specimen / Unknown Venipuncture / Unknown 06/04/2025 5:55 AM EDT 06/04/2025 6:17 AM EDT us Kia Le MD LAB BLOOD ORDERABLES Final Resul t Performing Organization Address [facility] Co de Phone Number [facility] [address] [place] [address], * (ABNORMAL) CBC auto differential (06/04/2025 5:55 AM EDT) WBC 10.7 4.8 - 10.8 K/mcL LAB HEMETOLOGY METHOD 06/04/2025 6:26 AM EDT [facility] RBC 2.90(L) 3.80 - 4.80 M/mcL LAB HEMETOLOGY METHOD 06/04/2025 6:26 AM EDT [facility] Hemoglobin 8.0(L) 11.5 - 16.0 g/dL LAB HEMETOLOGY METHOD 06/04/2025 6:26 AM [facility] Hematocrit 25.9(L) 35.0 - 47.0 % LAB HEMETOLOGY METHOD 06/04/2025 6:26 AM [facility] MCV 90.9 79.0 - 98.0 FL LAB HEMETOLOGY METHOD 06/04/2025 6:26 AM [facility] MCH 28.1 27.0 - 32.0 pcg LAB HEMETOLOGY METHOD 06/04/2025 6:26 AM [facility] MCHC 30.9(L) 32.0 - 37.0 g/dL LAB HEMETOLOGY METHOD 06/04/2025 6:26 AM [facility] RDW 22.4(H) 11.0 - 15.0 % LAB HEMETOLOGY METHOD 06/04/2025 6:26 AM [facility] Platelets 202 130 - 400 K/mcL LAB HEMETOLOGY METHOD 06/04/2025 6:26 AM [facility] MPV 10.8 7.0 - 11.0 FL LAB HEMETOLOGY METHOD 06/04/2025 6:26 AM [facility] NRBC 0.0 <1.0 % LAB HEMETOLOGY METHOD 06/04/2025 6:26 AM [facility] NRBC Absolute 0.00 <0.10 K/mcL LAB HEMETOLOGY METHOD 06/04/2025 6:26 AM [facility] Neutrophils Relative 73.4 % LAB HEMETOLOGY METHOD 06/04/2025 6:26 AM [facility] Lymphocytes Relative 12.9 % LAB HEMETOLOGY METHOD 06/04/2025 6:26 AM [facility] Monocytes Relative 10.3 % LAB HEMETOLOGY METHOD 06/04/2025 6:26 AM EDT [facility] Eosinophils Relative 2.0 % LAB HEMETOLOGY METHOD 06/04/2025 6:26 AM EDT [facility] Basophils Relative 0.5 % LAB HEMETOLOGY METHOD 06/04[facility]25 [facility] Immature Granulocytes Relative 0.9 % LAB HEMETOLOGY METHOD 06/04/2025 6:26 AM EDT [facility] Neutrophils Absolute 7.87(H) 1.50 - 7.00 K/mcL LAB HEMETOLOGY METHOD 06/04/2025 6:26 AM EDT [facility] Lymphocytes Absolute 1.38 1.00 - 5.00 K/mcL LAB HEMETOLOGY METHOD 06/04/2025 6:26 AM EDT [facility] Monocytes Absolute 1.10(H) 0.20 - 1.00 K/mcL LAB HEMETOLOGY METHOD 06/04/2025 6:26 AM EDT [facility] Eosinophils Absolute 0.21 0.00 - 0.50 K/mcL LAB HEMETOLOGY METHOD 06/04/2025 6:26 AM EDT [facility] Basophils Absolute 0.05 0.00 - 0.20 K/mcL LAB HEMETOLOGY METHOD 06/04/2025 6:26 AM EDT [facility] Immature Granulocytes Absolute 0.10(H) 0.00 - 0.03 K/mcL LAB HEMETOLOGY METHOD 06/04/2025 6:26 AM EDT [facility] Blood Venous blood specimen / Unknown Venipuncture / Unknown 06/04/2025 5:55 AM EDT 06/04/2025 6:17 AM EDT us Kia Le MD LAB BLOOD ORDERABLES Final Resul t [facility] [address] [place] [address], * Magnesium (06/04/2025 5:55 AM EDT) Pathologist [facility] Magnesium 2.3 1.9 - 2.6 mg/dL LAB CHEMISTRY METHOD 06/04/2025 7:11 AM [facility] Blood Venous blood specimen / Unknown Venipuncture / Unknown 06/04/2025 5:55 AM EDT 06/04/2025 6:16 AM EDT us Kia Le MD LAB BLOOD ORDERABLES Final Resul t [facility] [address] [place] [address], [place] [phone] * (ABNORMAL) Basic metabolic panel (06/04/2025 5:55 AM EDT) Pathologist [facility] Sodium 144 133 - 145 mmol/L LAB CHEMISTRY METHOD 06/04/2025 7:11 AM [facility] Potassium 3.7 3.5 - 5.5 mmol/L LAB CHEMISTRY METHOD 06/04/2025 7:11 AM [facility] Chloride 108 96 - 110 mmol/L LAB CHEMISTRY METHOD 06/04/2025 7:11 AM [facility] CO2 28 21 - 32 mmol/L LAB CHEMISTRY METHOD 06/04/2025 7:11 AM [facility] Anion Gap 8 3 - 11 LAB CHEMISTRY METHOD 06/04/2025 7:11 AM [facility] Glucose 95 70 - 100 mg/dL LAB CHEMISTRY METHOD 06/04/2025 7:11 AM [facility] BUN 19 5 - 25 mg/dL LAB CHEMISTRY METHOD 06/04/2025 7:11 AM [facility] Creatinine 2.85(H) 0.50 - 1.10 mg/dL LAB CHEMISTRY METHOD 06/04/2025 7:11 AM EDT [facility] eGFR 16(L) >=60 mL/min/1. 73m2 LAB CHEMISTRY METHOD 06/04/2025 7:11 AM EDT [facility] Comment:Calculation based on the Chronic Kidney Disease Epidemiology Collaboration (CKD-EPI) equation refit without adjustment for race. BUN/Creatinine Ratio 6.7 LAB CHEMISTRY METHOD 06/04/2025 7:11 AM EDT [facility] Calcium 7.8(L) 8.5 - 10.5 mg/dL LAB CHEMISTRY METHOD 06/04/2025 7:11 AM EDT [facility] Blood Venous blood specimen / Unknown Venipuncture / Unknown 06/04/2025 5:55 AM EDT 06/04/2025 6:16 AM EDT us Kia Le MD LAB BLOOD ORDERABLES Final Resul t [facility] [address] [place] [address], [place] [phone] * (ABNORMAL) POCT Glucose, blood (06/04/2025 12:55 AM EDT) Glucose POCT 113(H) 70 - 100 mg/dL 06/04/2025 12:56 AM EDT [facility] Blood Capillary blood specimen / Unknown 06/04/2025 12:55 AM EDT 06/04/2025 12:58 AM EDT us Kia Le MD LAB POINT OF CARE TE ST DOCKED DEVICE UNSOLICITED RESULTS Final Result [facility] [address] [place] [address], [place] [phone] * (ABNORMAL) Hemoglobin and hematocrit (06/03/2025 9:21 PM EDT) Hemoglobin 8.4(L) 11.5 - 16.0 g/dL LAB HEMETOLOGY METHOD 06/03/2025 10:26 PM EDT [facility] Hematocrit 27.2(L) 35.0 - 47.0 % LAB HEMETOLOGY METHOD 06/03/2025 10:26 PM EDT [facility] Blood Venous blood specimen / Unknown Venipuncture / Unknown 06/03/2025 9:21 PM EDT 06/03/2025 10:21 PM EDT us Kia Le MD LAB BLOOD ORDERABLES Final Resul t [facility] [address] [place] [address], [place] [phone] * (ABNORMAL) POCT Glucose, blood (06/03/2025 9:08 PM EDT) Glucose POCT 156(H) 70 - 100 mg/dL 06/03/2025 9:09 PM EDT [facility] Blood Capillary blood specimen / Unknown 06/03/2025 9:08 PM EDT 06/03/2025 9:10 PM EDT us Kia Le MD LAB POINT OF CARE TE ST DOCKED DEVICE UNSOLICITED RESULTS Final Result [facility] [address] [place] [address], [place] [phone] * (ABNORMAL) POCT Glucose, blood (06/03/2025 4:09 PM EDT) Glucose POCT 115(H) 70 - 100 mg/dL 06/03/2025 4:10 PM EDT [facility] Blood Capillary blood specimen / Unknown 06/03/2025 4:09 PM EDT 06/03/2025 4:11 PM EDT us Kia Le MD LAB POINT OF CARE TE ST DOCKED DEVICE UNSOLICITED RESULTS Final Result [facility] [address] [place] [address], [place] [phone] * POCT Glucose, blood (06/03/2025 10:59 AM EDT) Glucose POCT 82 70 - 100 mg/dL 06/03/2025 11:00 AM EDT [facility] Blood Capillary blood specimen / Unknown 06/03/2025 10:59 AM EDT 06/03/2025 11:01 AM EDT us Kia Le MD LAB POINT OF CARE TE ST DOCKED DEVICE UNSOLICITED RESULTS Final Result Performing Organization Address [facility]/ZIP Co de Phone Number [facility] [address] [place] [address], [place] [phone] * POCT Glucose, blood (06/03/2025 8:41 AM EDT) Glucose POCT 87 70 - 100 mg/dL 06/03/2025 8:41 AM EDT [facility] Blood Capillary blood specimen / Unknown 06/03/2025 8:41 AM EDT 06/03/2025 8:42 AM EDT us Kia Le MD LAB POINT OF CARE TE ST DOCKED DEVICE UNSOLICITED RESULTS Final Result Performing Organization Address City/[facility]/ZIP Co de Phone Number [facility] [address] [place] [address], [place] [phone] * (ABNORMAL) POCT Glucose, blood (06/03/2025 7:32 AM EDT) Glucose POCT 68(L) 70 - 100 mg/dL 06/03/2025 7:33 AM EDT [facility] Blood Capillary blood specimen / Unknown 06/03/2025 7:32 AM EDT 06/03/2025 7:34 AM EDT us Kia Le MD LAB POINT OF CARE TE ST DOCKED DEVICE UNSOLICITED RESULTS Final Result Performing Organization Address [facility] Co de Phone Number [facility] [address] [place] [address], * (ABNORMAL) Hemoglobin and hematocrit (06/03/2025 5:13 AM EDT) Hemoglobin 7.7(L) 11.5 - 16.0 g/dL LAB HEMETOLOGY METHOD 06/03/2025 5:44 AM EDT [facility] Hematocrit 24.4(L) 35.0 - 47.0 % LAB HEMETOLOGY METHOD 06/03/2025 5:44 AM EDT [facility] Blood Venous blood specimen / Unknown Venipuncture / Unknown 06/03/2025 5:13 AM EDT 06/03/2025 5:40 AM EDT us Kia Le MD LAB BLOOD ORDERABLES Final Resul t Performing Organization Address [facility]/ZIP Co de Phone Number [facility] [address] [place] [address], * (ABNORMAL) CBC auto differential (06/03/2025 5:13 AM EDT) WBC 8.9 4.8 - 10.8 K/mcL LAB HEMETOLOGY METHOD 06/03/2025 5:44 AM EDT [facility] RBC 2.80(L) 3.80 - 4.80 M/mcL LAB HEMETOLOGY METHOD 06/03/2025 5:44 AM EDT [facility] Hemoglobin 7.7(L) 11.5 - 16.0 g/dL LAB HEMETOLOGY METHOD 06/03/2025 5:44 AM [facility] Hematocrit 24.4(L) 35.0 - 47.0 % LAB HEMETOLOGY METHOD 06/03/2025 5:44 AM [facility] MCV 88.7 79.0 - 98.0 FL LAB HEMETOLOGY METHOD 06/03/2025 5:44 AM [facility] MCH 28.0 27.0 - 32.0 pcg LAB HEMETOLOGY METHOD 06/03/2025 5:44 AM [facility] MCHC 31.6(L) 32.0 - 37.0 g/dL LAB HEMETOLOGY METHOD 06/03/2025 5:44 AM [facility] RDW 21.4(H) 11.0 - 15.0 % LAB HEMETOLOGY METHOD 06/03/2025 5:44 AM [facility] Platelets 168 130 - 400 K/mcL LAB HEMETOLOGY METHOD 06/03/2025 5:44 AM [facility] MPV 10.7 7.0 - 11.0 FL LAB HEMETOLOGY METHOD 06/03/2025 5:44 AM [facility] NRBC 0.0 <1.0 % LAB HEMETOLOGY METHOD 06/03/2025 5:44 AM [facility] NRBC Absolute 0.00 <0.10 K/mcL LAB HEMETOLOGY METHOD 06/03/2025 5:44 AM [facility] Neutrophils Relative 72.2 % LAB HEMETOLOGY METHOD 06/03/2025 5:44 AM [facility] Lymphocytes Relative 14.4 % LAB HEMETOLOGY METHOD 06/03/2025 5:44 AM [facility] Monocytes Relative 9.6 % LAB HEMETOLOGY METHOD 06/03/2025 5:44 AM EDT [facility] Eosinophils Relative 2.7 % LAB HEMETOLOGY METHOD 06/03/2025 5:44 AM EDT [facility] Basophils Relative 0.5 % LAB HEMETOLOGY METHOD 06/03/2025 5:44 AM EDT [facility] Immature Granulocytes Relative 0.6 % LAB HEMETOLOGY METHOD 06/03/2025 5:44 AM EDT [facility] Neutrophils Absolute 6.40 1.50 - 7.00 K/mcL LAB HEMETOLOGY METHOD 06/03/2025 5:44 AM EDT [facility] Lymphocytes Absolute 1.27 1.00 - 5.00 K/mcL LAB HEMETOLOGY METHOD 06/03/2025 5:44 AM EDT [facility] Monocytes Absolute 0.85 0.20 - 1.00 K/mcL LAB HEMETOLOGY METHOD 06/03/2025 5:44 AM EDT [facility] Eosinophils Absolute 0.24 0.00 - 0.50 K/mcL LAB HEMETOLOGY METHOD 06/03/2025 5:44 AM EDT [facility] Basophils Absolute 0.04 0.00 - 0.20 K/mcL LAB HEMETOLOGY METHOD 06/03/2025 5:44 AM EDT [facility] Immature Granulocytes Absolute 0.05(H) 0.00 - 0.03 K/mcL LAB HEMETOLOGY METHOD 06/03/2025 5:44 AM EDT [facility] Blood Venous blood specimen / Unknown Venipuncture / Unknown 06/03/2025 5:13 AM EDT 06/03/2025 5:40 AM EDT us Kia Le MD LAB BLOOD ORDERABLES Final Resul t [facility] [address] [place] [address], * (ABNORMAL) Magnesium (06/03/2025 5:13 AM EDT) Pathologist [facility] Magnesium 1.8(L) 1.9 - 2.6 mg/dL LAB CHEMISTRY METHOD 06/03/2025 6:03 AM [facility] Blood Venous blood specimen / Unknown Venipuncture / Unknown 06/03/2025 5:13 AM EDT 06/03/2025 5:40 AM EDT us Kia Le MD LAB BLOOD ORDERABLES Final Resul t [facility] [address] [place] [address], [place] [phone] * (ABNORMAL) Basic metabolic panel (06/03/2025 5:13 AM EDT) Pathologist [facility] Sodium 144 133 - 145 mmol/L LAB CHEMISTRY METHOD 06/03/2025 6:03 AM [facility] Potassium 3.4(L) 3.5 - 5.5 mmol/L LAB CHEMISTRY METHOD 06/03/2025 6:03 AM [facility] Chloride 107 96 - 110 mmol/L LAB CHEMISTRY METHOD 06/03/2025 6:03 AM [facility] CO2 30 21 - 32 mmol/L LAB CHEMISTRY METHOD 06/03/2025 6:03 AM [facility] Anion Gap 7 3 - 11 LAB CHEMISTRY METHOD 06/03/2025 6:03 AM [facility] Glucose 71 70 - 100 mg/dL LAB CHEMISTRY METHOD 06/03/2025 6:03 AM [facility] BUN 17 5 - 25 mg/dL LAB CHEMISTRY METHOD 06/03/2025 6:03 AM [facility] Creatinine 2.22(H) 0.50 - 1.10 mg/dL LAB CHEMISTRY METHOD 06/03/2025 6:03 AM EDT [facility] eGFR 22(L) >=60 mL/min/1. 73m2 LAB CHEMISTRY METHOD 06/03/2025 6:03 AM EDT [facility] Comment:Calculation based on the Chronic Kidney Disease Epidemiology Collaboration (CKD-EPI) equation refit without adjustment for race. BUN/Creatinine Ratio 7.7 LAB CHEMISTRY METHOD 06/03/2025 6:03 AM EDT [facility] Calcium 7.7(L) 8.5 - 10.5 mg/dL LAB CHEMISTRY METHOD 06/03/2025 6:03 AM EDT [facility] Blood Venous blood specimen / Unknown Venipuncture / Unknown 06/03/2025 5:13 AM EDT 06/03/2025 5:40 AM EDT us Kia Le MD LAB BLOOD ORDERABLES Final Resul t [facility] [address] [place] [address], [place] [phone] * POCT Glucose, blood (06/03/2025 4:24 AM EDT) Glucose POCT 77 70 - 100 mg/dL 06/03/2025 4:24 AM EDT [facility] Blood Capillary blood specimen / Unknown 06/03/2025 4:24 AM EDT 06/03/2025 4:25 AM EDT us Kia Le MD LAB POINT OF CARE TE ST DOCKED DEVICE UNSOLICITED RESULTS Final Result [facility] [address] [place] [address], [place] [phone] * SST tube (06/03/2025 12:00 AM EDT) Extra Tube Hold for add-ons. 06/04/2025 12:01 AM EDT [facility] Comment:Auto resulted. Blood Venous blood specimen / Unknown 06/03/2025 06/03/2025 10:22 PM EDT us Kia Le MD LAB BLOOD ORDERABLES Final Resul t Performing Organization Address City/[facility]/ZIP Co de Phone Number [facility] [address] [place] [address], [place] [phone] * POCT Glucose, blood (06/02/2025 11:57 PM EDT) Glucose POCT 81 70 - 100 mg/dL 06/02/2025 11:58 PM EDT [facility] Blood Capillary blood specimen / Unknown 06/02/2025 11:57 PM EDT 06/02/2025 11:59 PM EDT us Kia Le MD LAB POINT OF CARE TE ST DOCKED DEVICE UNSOLICITED RESULTS Final Result Performing Organization Address [facility]/ZIP Co de Phone Number [facility] [address] [place] [address], [place] [phone] * (ABNORMAL) Hemoglobin and hematocrit (06/02/2025 8:18 PM EDT) Hemoglobin 7.9(L) 11.5 - 16.0 g/dL LAB HEMETOLOGY METHOD 06/02/2025 8:43 PM EDT [facility] Hematocrit 25.0(L) 35.0 - 47.0 % LAB HEMETOLOGY METHOD 06/02/2025 8:43 PM EDT [facility] Blood Venous blood specimen / Unknown Venipuncture / Unknown 06/02/2025 8:18 PM EDT 06/02/2025 8:36 PM EDT us Kia Le MD LAB BLOOD ORDERABLES Final Resul t [facility] [address] [place] [address], [place] [phone] * POCT Glucose, blood (06/02/2025 8:14 PM EDT) Glucose POCT 74 70 - 100 mg/dL 06/02/2025 8:15 PM EDT [facility] Blood Capillary blood specimen / Unknown 06/02/2025 8:14 PM EDT 06/02/2025 8:16 PM EDT us Kia Le MD LAB POINT OF CARE TE ST DOCKED DEVICE UNSOLICITED RESULTS Final Result Performing Organization Address [facility]/ZIP Co de Phone Number [facility] [address] [place] [address], [place] [phone] * POCT Glucose, blood (06/02/2025 3:30 PM EDT) Glucose POCT 94 70 - 100 mg/dL 06/02/2025 3:30 PM EDT [facility] Blood Capillary blood specimen / Unknown 06/02/2025 3:30 PM EDT 06/02/2025 3:32 PM EDT us Kia Le MD LAB POINT OF CARE TE ST DOCKED DEVICE UNSOLICITED RESULTS Final Result [facility] [address] [place] [address], [place] [phone] * (ABNORMAL) POCT Glucose, blood (06/02/2025 12:08 PM EDT) Glucose POCT 105(H) 70 - 100 mg/dL 06/02/2025 12:08 PM EDT [facility] Blood Capillary blood specimen / Unknown 06/02/2025 12:08 PM EDT 06/02/2025 12:10 PM EDT us Kia Le MD LAB POINT OF CARE TE ST DOCKED DEVICE UNSOLICITED RESULTS Final Result Performing Organization Address [facility]/ZIP Co de Phone Number [facility] [address] [place] [address], [place] [phone] * POCT Glucose, blood (06/02/2025 8:26 AM EDT) Glucose POCT 76 70 - 100 mg/dL 06/02/2025 8:27 AM EDT [facility] Blood Capillary blood specimen / Unknown 06/02/2025 8:26 AM EDT 06/02/2025 8:28 AM EDT us Kia Le MD LAB POINT OF CARE TE ST DOCKED DEVICE UNSOLICITED RESULTS Final Result Performing Organization Address [facility]/ZIP Co de Phone Number [facility] [address] [place] [address], [place] [phone] * (ABNORMAL) Hemoglobin and hematocrit (06/02/2025 5:53 AM EDT) [facility] Hemoglobin 7.9(L) 11.5 - 16.0 g/dL LAB HEMETOLOGY METHOD 06/02/2025 6:24 AM EDT [facility] Hematocrit 25.4(L) 35.0 - 47.0 % LAB HEMETOLOGY METHOD 06/02/2025 6:24 AM EDT [facility] Blood Blood sample taken from central line / Unknown Venipuncture / Unknown 06/02/2025 5:53 AM EDT 06/02/2025 6:14 AM EDT us Kia Le MD LAB BLOOD ORDERABLES Final Resul t [facility] [address] [place] [address], [place] [phone] * (ABNORMAL) CBC auto differential (06/02/2025 5:53 AM EDT) [facility] WBC 9.4 4.8 - 10.8 K/mcL LAB HEMETOLOGY METHOD 06/02/2025 6:24 AM EDT [facility] RBC 2.90(L) 3.80 - 4.80 M/mcL LAB HEMETOLOGY METHOD 06/02/2025 6:24 AM EDT [facility] Hemoglobin 7.9(L) 11.5 - 16.0 g/dL LAB HEMETOLOGY METHOD 06/02/2025 6:24 AM EDT [facility] Hematocrit 25.4(L) 35.0 - 47.0 % LAB HEMETOLOGY METHOD [facility]/02[facility]25 [facility] MCV 88.5 79.0 - 98.0 FL LAB HEMETOLOGY METHOD 06/02/2025 6:24 AM EDT [facility] MCH 27.5 27.0 - 32.0 pcg LAB HEMETOLOGY METHOD 06/02/2025 6:24 AM [facility] MCHC 31.1(L) 32.0 - 37.0 g/dL LAB HEMETOLOGY METHOD 06/02/2025 6:24 AM [facility] RDW 21.0(H) 11.0 - 15.0 % LAB HEMETOLOGY METHOD 06/02/2025 6:24 AM EDT [facility] Platelets 167 130 - 400 K/mcL LAB HEMETOLOGY METHOD 06/02/2025 6:24 AM EDT [facility] MPV 11.2(H) 7.0 - 11.0 FL LAB HEMETOLOGY METHOD 06/02/2025 6:24 AM [facility] NRBC 0.3 <1.0 % LAB HEMETOLOGY METHOD 06/02/2025 6:24 AM [facility] NRBC Absolute 0.03 <0.10 K/mcL LAB HEMETOLOGY METHOD 06/02/2025 6:24 AM [facility] Neutrophils Relative 75.7 % LAB HEMETOLOGY METHOD 06/02/2025 6:24 AM [facility] Lymphocytes Relative 13.2 % LAB HEMETOLOGY METHOD 06/02/2025 6:24 AM [facility] Monocytes Relative 7.8 % LAB HEMETOLOGY METHOD 06/02/2025 6:24 AM [facility] Eosinophils Relative 2.4 % LAB HEMETOLOGY METHOD 06/02/2025 6:24 AM [facility] Basophils Relative 0.3 % LAB HEMETOLOGY METHOD 06/02/2025 6:24 AM [facility] Immature Granulocytes Relative 0.6 % LAB HEMETOLOGY METHOD 06/02/2025 6:24 AM [facility] Neutrophils Absolute 7.12(H) 1.50 - 7.00 K/mcL LAB HEMETOLOGY METHOD 06/02/2025 6:24 AM [facility] Lymphocytes Absolute 1.24 1.00 - 5.00 K/mcL LAB HEMETOLOGY METHOD 06/02/2025 6:24 AM [facility] Monocytes Absolute 0.73 0.20 - 1.00 K/mcL LAB HEMETOLOGY METHOD 06/02/2025 6:24 AM [facility] Eosinophils Absolute 0.23 0.00 - 0.50 K/mcL LAB HEMETOLOGY METHOD 06/02/2025 6:24 AM [facility] Basophils Absolute 0.03 0.00 - 0.20 K/mcL LAB HEMETOLOGY METHOD 06/02/2025 6:24 AM [facility] Immature Granulocytes Absolute 0.06(H) 0.00 - 0.03 K/mcL LAB HEMETOLOGY METHOD 06/02/2025 6:24 AM EDT [facility] Blood Blood sample taken from central line / Unknown Venipuncture / Unknown 06/02/2025 5:53 AM EDT 06/02/2025 6:14 AM EDT us Kia Le MD LAB BLOOD ORDERABLES Final Resul t Performing Organization Address City/[facility] Co de Phone Number [facility] [address] [place] [address], [place] [phone] * (ABNORMAL) Phosphorus (06/02/2025 5:53 AM EDT) Phosphorus 1.5(L) 2.5 - 4.5 mg/dL LAB CHEMISTRY METHOD 06/02/2025 6:41 AM EDT [facility] Blood Blood sample taken from central line / Unknown Venipuncture / Unknown 06/02/2025 5:53 AM EDT 06/02/2025 6:14 AM EDT us Kia Le MD LAB BLOOD ORDERABLES Final Resul t Performing Organization Address [facility] de Phone Number [facility] [address] [place] [address], [place] [phone] * Magnesium (06/02/2025 5:53 AM EDT) Magnesium 2.0 1.9 - 2.6 mg/dL LAB CHEMISTRY METHOD 06/02/2025 6:41 AM EDT [facility] Blood Blood sample taken from central line / Unknown Venipuncture / Unknown 06/02/2025 5:53 AM EDT 06/02/2025 6:14 AM EDT us Kia Le MD LAB BLOOD ORDERABLES Final Resul t Performing Organization Address City/[facility]/ZIP Co de Phone Number [facility] [address] [place] [address], * (ABNORMAL) Basic metabolic panel (06/02/2025 5:53 AM EDT) Sodium 141 133 - 145 mmol/L LAB CHEMISTRY METHOD 06/02/2025 6:41 AM [facility] Potassium 3.7 3.5 - 5.5 mmol/L LAB CHEMISTRY METHOD 06/02/2025 6:41 AM [facility] Chloride 104 96 - 110 mmol/L LAB CHEMISTRY METHOD 06/02/2025 6:41 AM [facility] CO2 31 21 - 32 mmol/L LAB CHEMISTRY METHOD 06/02/2025 6:41 AM [facility] Anion Gap 6 3 - 11 LAB CHEMISTRY METHOD 06/02/2025 6:41 AM [facility] Glucose 85 70 - 100 mg/dL LAB CHEMISTRY METHOD 06/02/2025 6:41 AM [facility] BUN 15 5 - 25 mg/dL LAB CHEMISTRY METHOD 06/02/2025 6:41 AM [facility] Creatinine 1.81(H) 0.50 - 1.10 mg/dL LAB CHEMISTRY METHOD 06/02/2025 6:41 AM [facility] eGFR 28(L) >=60 mL/min/1. 73m2 LAB CHEMISTRY METHOD 06/02/2025 6:41 AM [facility] Comment:Calculation based on the Chronic Kidney Disease Epidemiology Collaboration (CKD-EPI) equation refit without adjustment for race. BUN/Creatinine Ratio 8.3 LAB CHEMISTRY METHOD 06/02/2025 6:41 AM [facility] Calcium 7.7(L) 8.5 - 10.5 mg/dL LAB CHEMISTRY METHOD 06/02/2025 6:41 AM [facility] Blood Blood sample taken from central line / Unknown Venipuncture / Unknown 06/02/2025 5:53 AM EDT 06/02/2025 6:14 AM EDT us Kia Le MD LAB BLOOD ORDERABLES Final Resul t Performing Organization Address [facility]/ZIP Co de Phone Number [facility] [address] [place] [address], [place] [phone] * POCT Glucose, blood (06/02/2025 3:55 AM EDT) Glucose POCT 72 70 - 100 mg/dL 06/02/2025 3:56 AM EDT [facility] Blood Capillary blood specimen / Unknown 06/02/2025 3:55 AM EDT 06/02/2025 3:56 AM EDT us Kia Le MD LAB POINT OF CARE TE ST DOCKED DEVICE UNSOLICITED RESULTS Final Result Performing Organization Address [facility]/ZIP Co de Phone Number [facility] [address] [place] [address], [place] [phone] * (ABNORMAL) POCT Glucose, blood (06/01/2025 11:48 PM EDT) Glucose POCT 119(H) 70 - 100 mg/dL 06/01/2025 11:50 PM EDT [facility] Blood Capillary blood specimen / Unknown 06/01/2025 11:48 PM EDT 06/01/2025 11:51 PM EDT us Kia Le MD LAB POINT OF CARE TE ST DOCKED DEVICE UNSOLICITED RESULTS Final Result [facility] [address] [place] [address], [place] [phone] * (ABNORMAL) Hemoglobin and hematocrit (06/01/2025 8:14 PM EDT) Hemoglobin 8.1(L) 11.5 - 16.0 g/dL LAB HEMETOLOGY METHOD 06/01/2025 8:30 PM EDT [facility] Hematocrit 25.2(L) 35.0 - 47.0 % LAB HEMETOLOGY METHOD 06/01/2025 8:30 PM EDT [facility] Blood Blood sample taken from central line / Unknown Venipuncture / Unknown 06/01/2025 8:14 PM EDT 06/01/2025 8:26 PM EDT us Kia Le MD LAB BLOOD ORDERABLES Final Resul t [facility] [address] [place] [address], [place] [phone] * POCT Glucose, blood (06/01/2025 7:32 PM EDT) [facility] Signature Glucose POCT 87 70 - 100 mg/dL 06/01/2025 7:33 PM EDT [facility] Blood Capillary blood specimen / Unknown 06/01/2025 7:32 PM EDT 06/01/2025 7:34 PM EDT us Kia Le MD LAB POINT OF CARE TE ST DOCKED DEVICE UNSOLICITED RESULTS Final Result [facility] [address] [place] [address], [place] [phone] * (ABNORMAL) POCT Glucose, blood (06/01/2025 6:45 PM EDT) Glucose POCT 69(L) 70 - 100 mg/dL 06/01/2025 6:46 PM EDT [facility] POCT Comment RN Notified 06/01/2025 6:46 PM EDT [facility] Blood Capillary blood specimen / Unknown 06/01/2025 6:45 PM EDT 06/01/2025 6:47 PM EDT us Kia Le MD LAB POINT OF CARE TE ST DOCKED DEVICE UNSOLICITED RESULTS Final Result Performing Organization Address City/[facility]/ZIP Co de Phone Number [facility] [address] [place] [address], [place] [phone] * POCT Glucose, blood (06/01/2025 12:04 PM EDT) Glucose POCT 74 70 - 100 mg/dL 06/01/2025 12:05 PM EDT [facility] POCT Comment RN Notified 06/01/2025 12:05 PM EDT [facility] Blood Capillary blood specimen / Unknown 06/01/2025 12:04 PM EDT 06/01/2025 12:06 PM EDT us Kia Le MD LAB POINT OF CARE TE ST DOCKED DEVICE UNSOLICITED RESULTS Final Result Performing Organization Address [facility]/ZIP Co de Phone Number [facility] [address] [place] [address], [place] [phone] * POCT Glucose, blood (06/01/2025 8:33 AM EDT) Glucose POCT 78 70 - 100 mg/dL 06/01/2025 8:41 AM EDT [facility] POCT Comment RN Notified 06/01/2025 8:41 AM EDT [facility] Blood Capillary blood specimen / Unknown 06/01/2025 8:33 AM EDT 06/01/2025 8:42 AM EDT us Kia Le MD LAB POINT OF CARE TE ST DOCKED DEVICE UNSOLICITED RESULTS Final Result Performing Organization Address [facility] Co de Phone Number [facility] [address] [place] [address], [place] [phone] * POCT Glucose, blood (06/01/2025 6:37 AM EDT) Glucose POCT 75 70 - 100 mg/dL 06/01/2025 6:37 AM EDT [facility] Blood Capillary blood specimen / Unknown 06/01/2025 6:37 AM EDT 06/01/2025 6:38 AM EDT us Kia Le MD LAB POINT OF CARE TE ST DOCKED DEVICE UNSOLICITED RESULTS Final Result Performing Organization Address [facility] Co de Phone Number [facility] [address] [place] [address], [place] [phone] * POCT Glucose, blood (06/01/2025 6:23 AM EDT) Glucose POCT 78 70 - 100 mg/dL 06/01/2025 6:23 AM EDT [facility] Blood Capillary blood specimen / Unknown 06/01/2025 6:23 AM EDT 06/01/2025 6:24 AM EDT us Kia Le MD LAB POINT OF CARE TE ST DOCKED DEVICE UNSOLICITED RESULTS Final Result Performing Organization Address [facility]/ZIP Co de Phone Number [facility] [address] [place] [address], [place] [phone] * (ABNORMAL) Hemoglobin and hematocrit (06/01/2025 5:08 AM EDT) Hemoglobin 8.0(L) 11.5 - 16.0 g/dL LAB HEMETOLOGY METHOD 06/01/2025 7:11 AM EDT [facility] Hematocrit 24.2(L) 35.0 - 47.0 % LAB HEMETOLOGY METHOD 06/01/2025 7:11 AM [facility] Blood Venous blood specimen / Unknown Venipuncture / Unknown 06/01/2025 5:08 AM EDT 06/01/2025 6:52 AM EDT us Kia Le MD LAB BLOOD ORDERABLES Final Resul t [facility] [address] [place] [address], * (ABNORMAL) CBC auto differential (06/01/2025 5:08 AM EDT) WBC 8.9 4.8 - 10.8 K/mcL LAB HEMETOLOGY METHOD 06/01/2025 7:11 AM [facility] RBC 2.90(L) 3.80 - 4.80 M/[facility] LAB HEMETOLOGY METHOD 06/01/2025 7:11 AM [facility] Hemoglobin 8.0(L) 11.5 - 16.0 g/dL LAB HEMETOLOGY METHOD 06/01/2025 7:11 AM [facility] Hematocrit 24.2(L) 35.0 - 47.0 % LAB HEMETOLOGY METHOD 06/01/2025 7:11 AM [facility] MCV 84.9 79.0 - 98.0 FL LAB HEMETOLOGY METHOD 06/01/2025 7:[facility] MCH 28.1 27.0 - 32.0 pcg LAB HEMETOLOGY METHOD 06/01/2025 7:11 AM [facility] MCHC 33.1 32.0 - 37.0 g/dL LAB HEMETOLOGY METHOD 06/01/2025 7:11 AM [facility] RDW 19.9(H) 11.0 - 15.0 % LAB HEMETOLOGY METHOD 06/01/2025 7:11 AM [facility] Platelets 143 130 - 400 K/mcL LAB HEMETOLOGY METHOD 06/01/2025 7:11 AM [facility] MPV 10.9 7.0 - 11.0 FL LAB HEMETOLOGY METHOD 06/01/2025 7:11 AM [facility] NRBC 0.2 <1.0 % LAB HEMETOLOGY METHOD 06/01/2025 7:11 AM [facility] NRBC Absolute 0.02 <0.10 K/mcL LAB HEMETOLOGY METHOD 06/01/2025 7:11 AM [facility] Neutrophils Relative 74.3 % LAB HEMETOLOGY METHOD 06/01/2025 7:11 AM [facility] Lymphocytes Relative 13.8 % LAB HEMETOLOGY METHOD 06/01/2025 7:11 AM [facility] Monocytes Relative 8.1 % LAB HEMETOLOGY METHOD 06/01/2025 7:11 AM [facility] Eosinophils Relative 2.8 % LAB HEMETOLOGY METHOD 06/01/2025 7:11 AM [facility] Basophils Relative 0.4 % LAB HEMETOLOGY METHOD 06/01/2025 7:11 AM [facility] Immature Granulocytes Relative 0.6 % LAB HEMETOLOGY METHOD 06/01/2025 7:11 AM [facility] Neutrophils Absolute 6.62 1.50 - 7.00 K/mcL LAB HEMETOLOGY METHOD 06/01/2025 7:11 AM [facility] Lymphocytes Absolute 1.23 1.00 - 5.00 K/mcL LAB HEMETOLOGY METHOD 06/01/2025 7:11 AM [facility] Monocytes Absolute 0.72 0.20 - 1.00 K/mcL LAB HEMETOLOGY METHOD 06/01/2025 7:11 AM EDT [facility] Eosinophils Absolute 0.25 0.00 - 0.50 K/[facility] LAB HEMETOLOGY METHOD 06/01/2025 7:11 AM EDT [facility] Basophils Absolute 0.04 0.00 - 0.20 K/[facility] LAB HEMETOLOGY METHOD 06/01/2025 7:11 AM EDT [facility] Immature Granulocytes Absolute 0.05(H) 0.00 - 0.03 K/[facility] LAB HEMETOLOGY METHOD 06/01/2025 7:11 AM EDT [facility] Blood Venous blood specimen / Unknown Venipuncture / Unknown 06/01/2025 5:08 AM EDT 06/01/2025 6:52 AM EDT us Kia Le MD LAB BLOOD ORDERABLES Final Resul t Performing Organization Address City/[facility]/ZIP Co de Phone Number [facility] [address] [place] [address], [place] [phone] * (ABNORMAL) Magnesium (06/01/2025 5:08 AM EDT) Magnesium 1.7(L) 1.9 - 2.6 mg/dL LAB CHEMISTRY METHOD 06/01/2025 7:41 AM EDT [facility] Blood Venous blood specimen / Unknown Venipuncture / Unknown 06/01/2025 5:08 AM EDT 06/01/2025 6:52 AM EDT us Kia Le MD LAB BLOOD ORDERABLES Final Resul t [facility] [address] [place] [address], [place] [phone] * (ABNORMAL) Basic metabolic panel (06/01/2025 5:08 AM EDT) Sodium 143 133 - 145 mmol/L LAB CHEMISTRY METHOD 06/01/2025 7:48 AM [facility] Potassium 2.9(LL) 3.5 - 5.5 mmol/L LAB CHEMISTRY METHOD 06/01/2025 7:48 AM [facility] Chloride 106 96 - 110 mmol/L LAB CHEMISTRY METHOD 06/01/2025 7:48 AM [facility] CO2 30 21 - 32 mmol/L LAB CHEMISTRY METHOD 06/01/2025 7:48 AM [facility] Anion Gap 7 3 - 11 LAB CHEMISTRY METHOD 06/01/2025 7:48 AM [facility] Glucose 81 70 - 100 mg/dL LAB CHEMISTRY METHOD 06/01/2025 7:48 AM [facility] BUN 26(H) 5 - 25 mg/dL LAB CHEMISTRY METHOD 06/01/2025 7:48 AM [facility] Creatinine 2.82(H) 0.50 - 1.10 mg/dL LAB CHEMISTRY METHOD 06/01/2025 7:48 AM [facility] eGFR 16(L) >=60 mL/min/1. 73m2 LAB CHEMISTRY METHOD 06/01/2025 7:48 AM [facility] Comment:Calculation based on the Chronic Kidney Disease Epidemiology Collaboration (CKD-EPI) equation refit without adjustment for race. BUN/Creatinine Ratio 9.2 LAB CHEMISTRY METHOD 06/01/2025 7:48 AM [facility] Calcium 7.5(L) 8.5 - 10.5 mg/dL LAB CHEMISTRY METHOD 06/01/2025 7:48 AM [facility] Blood Venous blood specimen / Unknown Venipuncture / Unknown 06/01/2025 5:08 AM EDT 06/01/2025 6:52 AM EDT us Kia Le MD LAB BLOOD ORDERABLES Final Resul t Performing Organization Address [facility]/ZIP Co de Phone Number [facility] [address] [place] [address], [place] [phone] * POCT Glucose, blood (06/01/2025 4:06 AM EDT) Glucose POCT 70 70 - 100 mg/dL 06/01/2025 4:06 AM EDT [facility] Blood Capillary blood specimen / Unknown 06/01/2025 4:06 AM EDT 06/01/2025 4:08 AM EDT us Kia Le MD LAB POINT OF CARE TE ST DOCKED DEVICE UNSOLICITED RESULTS Final Result Performing Organization Address [facility]/ZIP Co de Phone Number [facility] [address] [place] [address], [place] [phone] * POCT Glucose, blood (05/31/2025 11:58 PM EDT) Glucose POCT 78 70 - 100 mg/dL 05/31/2025 11:59 PM EDT [facility] Blood Capillary blood specimen / Unknown 05/31/2025 11:58 PM EDT 06/01/2025 12:00 AM EDT us Kia Le MD LAB POINT OF CARE TE ST DOCKED DEVICE UNSOLICITED RESULTS Final Result Performing Organization Address City/[facility]/ZIP Co de Phone Number [facility] [address] [place] [address], [place] [phone] * POCT Glucose, blood (05/31/2025 8:30 PM EDT) Glucose POCT 81 70 - 100 mg/dL 05/31/2025 8:31 PM EDT [facility] Blood Capillary blood specimen / Unknown 05/31/2025 8:30 PM EDT 05/31/2025 8:32 PM EDT us Kia Le MD LAB POINT OF CARE TE ST DOCKED DEVICE UNSOLICITED RESULTS Final Result Performing Organization Address [facility]/ZIP Co de Phone Number [facility] [address] [place] [address], [place] [phone] * (ABNORMAL) Hemoglobin and hematocrit (05/31/2025 8:06 PM EDT) Hemoglobin 8.3(L) 11.5 - 16.0 g/dL LAB HEMETOLOGY METHOD 05/31/2025 9:01 PM EDT [facility] Hematocrit 25.8(L) 35.0 - 47.0 % LAB HEMETOLOGY METHOD 05/31/2025 9:01 PM EDT [facility] Blood Venous blood specimen / Unknown Venipuncture / Unknown 05/31/2025 8:06 PM EDT 05/31/2025 8:56 PM EDT us Kia Le MD LAB BLOOD ORDERABLES Final Resul t [facility] [address] [place] [address], [place] [phone] * Transfuse RBC, Leukoreduced (05/31/2025 6:54 PM EDT) us Kia Le MD BLOOD TRANSFUSION ORDERABLES Fin al Result * POCT Glucose, blood (05/31/2025 4:13 PM EDT) Glucose POCT 82 70 - 100 mg/dL 05/31/2025 4:14 PM EDT [facility] Blood Capillary blood specimen / Unknown 05/31/2025 4:13 PM EDT 05/31/2025 4:15 PM EDT us Kia Le MD LAB POINT OF CARE TE ST DOCKED DEVICE UNSOLICITED RESULTS Final Result Performing Organization Address City/[facility]/ZIP Co de Phone Number [facility] [address] [place] [address], [place] [phone] * Prepare RBC: 1 Units, Leukoreduced (05/31/2025 2:40 PM EDT) Product Code [id number] 05/31/2025 3:53 PM EDT [facility] Unit Number [id number] 05/31/20 3:53 PM EDT [facility] Crossmatch Compatible 05/31/2025 3:07 PM EDT [facility] Dispense Status Transfused 05/31/2025 3:53 PM EDT [facility] Unit ABO Rh BPOS 05/31/2025 3:53 PM EDT [facility] Unit Expiration Date Time [id number] 05/31/2025 3:53 PM EDT [facility] Unit Blood Type 7300 05/31/2025 3:53 PM EDT [facility] Blood Venous blood specimen / Unknown 05/31/2025 2:40 PM EDT 05/31/2025 4:34 AM EDT Kia Le MD BLOOD BANK PRODUCT ORDERABLES Fi nal Result [facility] [address] [place] [address], [place] [phone] * (ABNORMAL) POCT Glucose, blood (05/31/2025 12:21 PM EDT) Glucose POCT 114(H) 70 - 100 mg/dL 05/31/2025 12:22 PM EDT [facility] Blood Capillary blood specimen / Unknown 05/31/2025 12:21 PM EDT 05/31/2025 12:24 PM EDT us Kia Le MD LAB POINT OF CARE TE ST DOCKED DEVICE UNSOLICITED RESULTS Final Result Performing Organization Address [facility]/ZIP Co de Phone Number [facility] [address] [place] [address], [place] [phone] * (ABNORMAL) POCT Glucose, blood (05/31/2025 11:33 AM EDT) Glucose POCT 66(L) 70 - 100 mg/dL 05/31/2025 12:06 PM EDT [facility] Blood Capillary blood specimen / Unknown 05/31/2025 11:33 AM EDT 05/31/2025 12:07 PM EDT us Kia Le MD LAB POINT OF CARE TE ST DOCKED DEVICE UNSOLICITED RESULTS Final Result Performing Organization Address [facility] de Phone Number [facility] [address] [place] [address], [place] [phone] * (ABNORMAL) Hemoglobin and hematocrit (05/31/2025 10:17 AM EDT) Hemoglobin 7.4(L) 11.5 - 16.0 g/dL LAB HEMETOLOGY METHOD 05/31/2025 10:33 AM EDT [facility] Hematocrit 23.1(L) 35.0 - 47.0 % LAB HEMETOLOGY METHOD 05/31/2025 10:33 AM EDT [facility] Blood Venous blood specimen / Unknown Venipuncture / Unknown 05/31/2025 10:17 AM EDT 05/31/2025 10:28 AM EDT us Kia Le MD LAB BLOOD ORDERABLES Final Resul t [facility] [address] [place] [address], [place] [phone] * Transfuse RBC, Leukoreduced (05/31/2025 8:54 AM EDT) Mi AGARWAL BLOOD TRANSFUSION ORDER JAMA Final Result * POCT Glucose, blood (05/31/2025 7:45 AM EDT) Glucose POCT 74 70 - 100 mg/dL 05/31/2025 7:46 AM EDT [facility] Blood Capillary blood specimen / Unknown 05/31/2025 7:45 AM EDT 05/31/2025 7:47 AM EDT Kia Le MD LAB POINT OF CARE TE ST DOCKED DEVICE UNSOLICITED RESULTS Final Result Performing Organization Address City/[facility]/ZIP Co de Phone Number [facility] [address] [place] [address], [place] [phone] * POCT Glucose, blood (05/31/2025 4:40 AM EDT) [facility] Glucose POCT 74 70 - 100 mg/dL 05/31/2025 4:41 AM EDT [facility] Blood Capillary blood specimen / Unknown 05/31/2025 4:40 AM EDT 05/31/2025 4:42 AM EDT us Kia Le MD LAB POINT OF CARE TE ST DOCKED DEVICE UNSOLICITED RESULTS Final Result [facility] [address] [place] [address], [place] [phone] * (ABNORMAL) Prothrombin time with INR (05/31/2025 4:15 AM EDT) Protime 19.9(H) 10.6 - 13.9 sec LAB COAGULATION METHOD 05/31/2025 4:44 AM EDT [facility] INR 1.6 LAB COAGULATION METHOD 05/31/2025 4:44 AM EDT [facility] Blood Venous blood specimen / Unknown Venipuncture / Unknown 05/31/2025 4:15 AM EDT 05/31/2025 4:34 AM EDT Mi [facility] LAB BLOOD ORDERABLES Fi nal Result Performing Organization Address [facility]/ZIP Co de Phone Number [facility] [address] [place] [address], [place] [phone] * Type and screen (05/31/2025 4:15 AM EDT) ABO Group B 05/31/2025 5:28 AM EDT [facility] Rh Type Positive 05/31/2025 5:28 AM EDT [facility] Antibody Screen Negative 05/31/2025 5:28 AM EDT [facility] Blood Venous blood specimen / Unknown Venipuncture / Unknown 05/31/2025 4:15 AM EDT 05/31/2025 4:34 AM EDT Mi [facility] LAB BLOOD BANK TEST ORD ERABLES Final Result Performing Organization Address City/[facility]/ZIP Co de Phone Number [facility] [address] [place] [address], [place] [phone] * Prepare RBC: 1 Units, Leukoreduced (05/31/2025 3:41 AM EDT) Product Code [id number] 05/31/2025 5:56 AM EDT [facility] Unit Number [id number] 05/31/20 5:56 AM EDT [facility] Crossmatch Compatible 05/31/2025 5:36 AM EDT [facility] Dispense Status Transfused 05/31/2025 5:56 AM EDT [facility] Unit ABO Rh BPOS 05/31/2025 5:56 AM EDT [facility] Unit Expiration Date Time [id number] 05/31/2025 5:56 AM EDT [facility] Unit Blood Type 7300 05/31/2025 5:56 AM EDT [facility] Blood Venous blood specimen / Unknown 05/31/2025 3:41 AM EDT 05/31/2025 4:34 AM EDT us Mi AGARWAL BLOOD BANK PRODUCT ORDE RIKKI Final Result [facility] [address] [place] [address], * (ABNORMAL) CBC auto differential (05/31/2025 3:07 AM EDT) WBC 6.4 4.8 - 10.8 K/[facility] HEMETOLOGY METHOD 05/31/2025 3:38 AM EDT [facility] RBC 2.30(L) 3.80 - 4.80 M/[facility] LAB HEMETOLOGY METHOD 05/31/2025 3:38 AM EDT [facility] Hemoglobin 6.2(LL) 11.5 - 16.0 g/dL LAB HEMETOLOGY METHOD 05/31/2025 3:38 AM EDT [facility] Hematocrit 19.7(LL) 35.0 - 47.0 % LAB HEMETOLOGY METHOD 05/31/2025 3:38 AM EDT [facility] MCV 87.1 79.0 - 98.0 FL LAB HEMETOLOGY METHOD 05/31/2025 3:38 AM EDT [facility] MCH 26.3(L) 27.0 - 32.0 pcg LAB HEMETOLOGY METHOD 05/31/2025 3:38 AM [facility] MCHC 30.2(L) 32.0 - 37.0 g/dL LAB HEMETOLOGY METHOD 05/31/2025 3:38 AM [facility] RDW 21.1(H) 11.0 - 15.0 % LAB HEMETOLOGY METHOD 05/31/2025 3:38 AM [facility] Platelets 175 130 - 400 K/mcL LAB HEMETOLOGY METHOD 05/31/2025 3:38 AM [facility] MPV 10.4 7.0 - 11.0 FL LAB HEMETOLOGY METHOD 05/31/2025 3:38 AM [facility] NRBC 0.3 <1.0 % LAB HEMETOLOGY METHOD 05/31/2025 3:38 AM [facility] NRBC Absolute 0.02 <0.10 K/mcL LAB HEMETOLOGY METHOD 05/31/2025 3:38 AM [facility] Neutrophils Relative 67.9 % LAB HEMETOLOGY METHOD 05/31/2025 3:38 AM [facility] Lymphocytes Relative 18.9 % LAB HEMETOLOGY METHOD 05/31/2025 3:38 AM [facility] Monocytes Relative 9.3 % LAB HEMETOLOGY METHOD 05/31/2025 3:38 AM [facility] Eosinophils Relative 3.0 % LAB HEMETOLOGY METHOD 05/31/2025 3:38 AM [facility] Basophils Relative 0.3 % LAB HEMETOLOGY METHOD 05/31/2025 3:38 AM [facility] Immature Granulocytes Relative 0.6 % LAB HEMETOLOGY METHOD 05/31/2025 3:38 AM EDT [facility] Neutrophils Absolute 4.37 1.50 - 7.00 K/mcL LAB HEMETOLOGY METHOD 05/31/2025 3:38 AM EDT [facility] Lymphocytes Absolute 1.22 1.00 - 5.00 K/mcL LAB HEMETOLOGY METHOD 05/31/2025 3:38 AM EDT [facility] Monocytes Absolute 0.60 0.20 - 1.00 K/mcL LAB HEMETOLOGY METHOD 05/31/2025 3:38 AM EDT [facility] Eosinophils Absolute 0.19 0.00 - 0.50 K/mcL LAB HEMETOLOGY METHOD 05/31/2025 3:38 AM EDT [facility] Basophils Absolute 0.02 0.00 - 0.20 K/mcL LAB HEMETOLOGY METHOD 05/31/2025 3:38 AM EDT [facility] Immature Granulocytes Absolute 0.04(H) 0.00 - 0.03 K/mcL LAB HEMETOLOGY METHOD 05/31/2025 3:38 AM EDT [facility] Blood Venous blood specimen / Unknown Venipuncture / Unknown 05/31/2025 3:07 AM EDT 05/31/2025 3:13 AM EDT [facility] LAB BLOOD ORDERABLES Fi nal Result [facility] [address] [place] [address], * (ABNORMAL) Phosphorus (05/31/2025 3:07 AM EDT) Phosphorus 2.0(L) 2.5 - 4.5 mg/dL LAB CHEMISTRY METHOD 05/31/2025 3:39 AM EDT [facility] Blood Venous blood specimen / Unknown Venipuncture / Unknown 05/31/2025 3:07 AM EDT 05/31/2025 3:13 AM EDT [facility] LAB BLOOD ORDERABLES Fi nal Result Performing Organization Address [facility]/ZIP Co de Phone Number [facility] [address] [place] [address], [place] [phone] * (ABNORMAL) Magnesium (05/31/2025 3:07 AM EDT) Pathologist [facility] Magnesium 1.8(L) 1.9 - 2.6 mg/dL LAB CHEMISTRY METHOD 05/31/2025 3:39 AM EDT [facility] Blood Venous blood specimen / Unknown Venipuncture / Unknown 05/31/2025 3:07 AM EDT 05/31/2025 3:13 AM EDT Mi AGARWAL LAB BLOOD ORDERABLES Fi nal Result Performing Organization Address [facility] de Phone Number [facility] [address] [place] [address], [place] [phone] * (ABNORMAL) Basic metabolic panel (05/31/2025 3:07 AM EDT) [facility] Sodium 141 133 - 145 mmol/L LAB CHEMISTRY METHOD 05/31/2025 3:39 AM EDT [facility] Potassium 3.2(L) 3.5 - 5.5 mmol/L LAB CHEMISTRY METHOD 05/31/2025 3:39 AM EDT [facility] Chloride 102 96 - 110 mmol/L LAB CHEMISTRY METHOD 05/31/2025 3:39 AM EDT [facility] CO2 34(H) 21 - 32 mmol/L LAB CHEMISTRY METHOD 05/31/2025 3:39 AM EDT [facility] Anion Gap 5 3 - 11 LAB CHEMISTRY METHOD 05/31/2025 3:39 AM EDT [facility] Glucose 74 70 - 100 mg/dL LAB CHEMISTRY METHOD 05/31/2025 3:39 AM EDT [facility] BUN 17 5 - 25 mg/dL LAB CHEMISTRY METHOD 05/31/2025 3:39 AM EDT [facility] Creatinine 2.29(H) 0.50 - 1.10 mg/dL LAB CHEMISTRY METHOD 05/31/2025 3:39 AM EDT [facility] eGFR 21(L) >=60 mL/min/1. 73m2 LAB CHEMISTRY METHOD 05/31/2025 3:39 AM EDT [facility] Comment:Calculation based on the Chronic Kidney Disease Epidemiology Collaboration (CKD-EPI) equation refit without adjustment for race. BUN/Creatinine Ratio 7.4 LAB CHEMISTRY METHOD 05/31/2025 3:39 AM EDT [facility] Calcium 7.6(L) 8.5 - 10.5 mg/dL LAB CHEMISTRY METHOD 05/31/2025 3:39 AM EDT [facility] Blood Venous blood specimen / Unknown Venipuncture / Unknown 05/31/2025 3:07 AM EDT 05/31/2025 3:13 AM EDT Mi AGARWAL LAB BLOOD ORDERABLES Fi nal Result [facility] [address] [place] [address], * (ABNORMAL) Occult blood stool, guaiac (05/31/2025 3:07 AM EDT) Occult Blood, Stool #1 Positive( A) Negative 05/31/2025 3:34 AM EDT [facility] Stool Rectum structure / Unknown Non-blood Collection / Unknown 05/31/2025 3:07 AM EDT 05/31/2025 3:13 AM EDT Mi AGARWAL LAB BODY FLUIDS AND STO OLS ORDERABLES Final Result Performing Organization Address [facility]/ZIP Co de Phone Number [facility] [address] [place] [address], [place] [phone] * POCT Glucose, blood (05/31/2025 12:41 AM EDT) Glucose POCT 81 70 - 100 mg/dL 05/31/2025 12:42 AM EDT [facility] Blood Capillary blood specimen / Unknown 05/31/2025 12:41 AM EDT 05/31/2025 12:43 AM EDT us Kia Le MD LAB POINT OF CARE TE ST DOCKED DEVICE UNSOLICITED RESULTS Final Result Performing Organization Address [facility]/ZIP Co de Phone Number [facility] [address] [place] [address], [place] [phone] * POCT Glucose, blood (05/30/2025 8:09 PM EDT) Glucose POCT 91 70 - 100 mg/dL 05/30/2025 8:30 PM EDT [facility] Blood Capillary blood specimen / Unknown 05/30/2025 8:09 PM EDT 05/30/2025 8:31 PM EDT us Kia Le MD LAB POINT OF CARE TE ST DOCKED DEVICE UNSOLICITED RESULTS Final Result Performing Organization Address [facility]/ZIP Co de Phone Number [facility] [address] [place] [address], [place] [phone] * POCT Glucose, blood (05/30/2025 4:33 PM EDT) Glucose POCT 80 70 - 100 mg/dL 05/30/2025 4:33 PM EDT [facility] Blood Capillary blood specimen / Unknown 05/30/2025 4:33 PM EDT 05/30/2025 4:34 PM EDT us Kia Le MD LAB POINT OF CARE TE ST DOCKED DEVICE UNSOLICITED RESULTS Final Result [facility] [address] [place] [address], [place] [phone] * Vascular US duplex upper extremity venous right (05/30/2025 3:42 PM EDT) Anatomical Region Laterality Modality Vascular, Abdomen Ultrasound 05/30/2025 4:07 PM EDT Impressions 05/30/2025 4:08 PM EDT Thrombus seen in the right cephalic vein in the upper forearm. No deep venous thrombosis. -------- FINAL REPORT -------- Dictated By: Roula Macario Dictated Date: 05/30/2025 16:07 ET Assigned Physician: Roula Macario Reviewed and Electronically Signed By: Roula Macario Signed Date: 05/30/2025 16:08 ET Workstation ID: [id number] Transcribed By: Self Edit Transcribed Date: 05/30/2025 16:07 ET Narrative 05/30/2025 4:08 PM EDT STUDY: VAS US DUPLEX UPPER EXT VENOUS RIGHT COMPARISON: None INDICATION: right upper extremity swelling/pain TECHNIQUE: Multiple sonographic images of the right upper extremity were obtained with and without color flow interrogation and spectral duplex waveform analysis. FINDINGS: On the right, the visualized internal jugular vein demonstrates color flow, normal phasic waveforms, and compressibility. The visualized subclavian vein demonstrates color flow and phasic waveforms. Color flow is demonstrated within the visualized axillary vein. The brachial veins demonstrates color flow, phasic waveforms and compressibility. Thrombus seen in the right cephalic vein in the upper forearm. Basilic vein not visualized. Procedure Note Roula Macario MD - 05/30/2025 STUDY: VAS US DUPLEX UPPER EXT VENOUS RIGHT COMPARISON: None INDICATION: right upper extremity swelling/pain TECHNIQUE: Multiple sonographic images of the right upper extremity wereobtained with and without color flow interrogation and spectral duplexwaveform analysis. FINDINGS: On the right, the visualized internal jugular vein demonstrates colorflow, normal phasic waveforms, and compressibility. The visualizedsubclavian vein demonstrates color flow and phasic waveforms. Color flowis demonstrated within the visualized axillary vein. The brachial veinsdemonstrates color flow, phasic waveforms and compressibility. Thrombusseen in the right cephalic vein in the upper forearm. Basilic vein notvisualized. IMPRESSION: Thrombus seen in the right cephalic vein in the upper forearm. No deepvenous thrombosis. -------- FINAL REPORT -------- Dictated By: Roula Macario Dictated Date: 05/30/2025 16:07 ET Assigned Physician: Roula Macario Reviewed and Electronically Signed By: Roula Macario Signed Date: 05/30/2025 16:08 ET Workstation ID: [id number] Transcribed By: Self Edit Transcribed Date: 05/30/2025 16:07 ET us Rosalind AGARWAL CV VASCULAR PROCEDURES Final Result * POCT Glucose, blood (05/30/2025 11:52 AM EDT) Glucose POCT 73 70 - 100 mg/dL 05/30/2025 11:52 AM EDT [facility] Blood Capillary blood specimen / Unknown 05/30/2025 11:52 AM EDT 05/30/2025 11:54 AM EDT Kia Le MD LAB POINT OF CARE TE ST DOCKED DEVICE UNSOLICITED RESULTS Final Result [facility] [address] [place] [address], [place] [phone] * POCT Glucose, blood (05/30/2025 8:22 AM EDT) Glucose POCT 72 70 - 100 mg/dL 05/30/2025 8:23 AM EDT [facility] Blood Capillary blood specimen / Unknown 05/30/2025 8:22 AM EDT 05/30/2025 8:25 AM EDT us Kia Le MD LAB POINT OF CARE TE ST DOCKED DEVICE UNSOLICITED RESULTS Final Result [facility] [address] [place] [address], [place] [phone] * (ABNORMAL) CBC auto differential (05/30/2025 6:12 AM EDT) WBC 8.2 4.8 - 10.8 K/mcL LAB HEMETOLOGY METHOD 05/30/2025 6:40 AM EDT [facility] RBC 3.00(L) 3.80 - 4.80 M/mcL LAB HEMETOLOGY METHOD 05/30/2025 6:40 AM EDT [facility] Hemoglobin 7.9(L) 11.5 - 16.0 g/dL LAB HEMETOLOGY METHOD 05/30/2025 6:40 AM EDT [facility] Hematocrit 25.3(L) 35.0 - 47.0 % LAB HEMETOLOGY METHOD 05/30/2025 6:40 AM EDT [facility] MCV 84.6 79.0 - 98.0 FL LAB HEMETOLOGY METHOD 05/30/2025 6:40 AM EDT [facility] MCH 26.4(L) 27.0 - 32.0 pcg LAB HEMETOLOGY METHOD 05/30/2025 6:40 AM EDT [facility] MCHC 31.2(L) 32.0 - 37.0 g/dL LAB HEMETOLOGY METHOD 05/30/2025 6:40 AM EDT [facility] RDW 21.2(H) 11.0 - 15.0 % LAB HEMETOLOGY METHOD 05/30/2025 6:40 AM EDT [facility] Platelets 228 130 - 400 K/mcL LAB HEMETOLOGY METHOD 05/30/2025 6:40 AM [facility] MPV 10.6 7.0 - 11.0 FL LAB HEMETOLOGY METHOD 05/30/2025 6:40 AM [facility] NRBC 0.2 <1.0 % LAB HEMETOLOGY METHOD 05/30/2025 6:40 AM [facility] NRBC Absolute 0.02 <0.10 K/mcL LAB HEMETOLOGY METHOD 05/30/2025 6:40 AM [facility] Neutrophils Relative 68.7 % LAB HEMETOLOGY METHOD 05/30/2025 6:40 AM [facility] Lymphocytes Relative 18.8 % LAB HEMETOLOGY METHOD 05/30/2025 6:40 AM [facility] Monocytes Relative 10.0 % LAB HEMETOLOGY METHOD 05/30/2025 6:40 AM [facility] Eosinophils Relative 1.9 % LAB HEMETOLOGY METHOD 05/30/2025 6:40 AM [facility] Basophils Relative 0.2 % LAB HEMETOLOGY METHOD 05/30/2025 6:40 AM [facility] Immature Granulocytes Relative 0.4 % LAB HEMETOLOGY METHOD 05/30/2025 6:40 AM [facility] Neutrophils Absolute 5.64 1.50 - 7.00 K/mcL LAB HEMETOLOGY METHOD 05/30/2025 6:40 AM [facility] Lymphocytes Absolute 1.54 1.00 - 5.00 K/mcL LAB HEMETOLOGY METHOD 05/30/2025 6:40 AM [facility] Monocytes Absolute 0.82 0.20 - 1.00 K/mcL LAB HEMETOLOGY METHOD 05/30/2025 6:40 AM [facility] Eosinophils Absolute 0.16 0.00 - 0.50 K/mcL LAB HEMETOLOGY METHOD 05/30/2025 6:40 AM EDT [facility] Basophils Absolute 0.02 0.00 - 0.20 K/mcL LAB HEMETOLOGY METHOD 05/30/2025 6:40 AM EDT [facility] Immature Granulocytes Absolute 0.03 0.00 - 0.03 K/mcL LAB HEMETOLOGY METHOD 05/30/2025 6:40 AM EDT [facility] Blood Venous blood specimen / Unknown Venipuncture / Unknown 05/30/2025 6:12 AM EDT 05/30/2025 6:28 AM EDT us Amarjit Ayala DO LAB BLOOD ORDERABLES Final R esult [facility] [address] [place] [address], * (ABNORMAL) Procalcitonin (05/30/2025 6:12 AM EDT) Procalcitonin 1.22(H) <=0.16 ng/mL LAB CHEMISTRY METHOD 05/30/2025 7:56 AM EDT [facility] Blood Venous blood specimen / Unknown Venipuncture / Unknown 05/30/2025 6:12 AM EDT 05/30/2025 6:28 AM EDT Narrative [facility] - 05/30/2025 7:56 AM EDT Procalcitonin > 2.00 ng/ml: Procalcitonin Levels above 2.00 ng/ml, on the first day of ICU admission represent a high risk for progression to severe sepsis and/or septic shock. Procalcitonin < 0.50 ng/ml: Procalcitonin levels below 0.50 ng/ml on the first day of ICU admission represent a low risk for progression to severe sepsis and/or septic shock. Concentrations <0.5 ng/mL do not exclude an infection, on account of local ized infections (without systemic signs) which can be associated with such low concentrations, or a systemic infection in its initial stages (<6 hours). Furthermore, increased procalcitonin can occur without infection. PCT concentrations between 0.5 and 2.0 ng/mL should be interpreted taking into account the patient's history. It is recommended to retest PCT within 6-24 hours if any concentrations <2.0 ng/mL are obtained. us Amarjit Ayala DO LAB BLOOD ORDERABLES Final R mayrault [facility] [address] [place] [address], [place] [phone] * (ABNORMAL) Hepatic function panel (05/30/2025 6:12 AM EDT) Total Protein 6.2 6.0 - 8.0 g/dL LAB CHEMISTRY METHOD [facility]2025 [facility] Albumin 2.2(L) 3.2 - 5.0 g/dL LAB CHEMISTRY METHOD 05/30/2025 6:57 [facility] Total Bilirubin 0.3 0.0 - 1.4 mg/dL LAB CHEMISTRY METHOD 05/30/2025 6:57 AM [facility] Bilirubin, Direct 0.2 0.0 - 0.3 mg/dL LAB CHEMISTRY METHOD 05/30/2025 6:57 AM [facility] Bilirubin, Indirect 0.1 0.0 - 1.1 mg/dL LAB CHEMISTRY METHOD 05/30/2025 6:57 [facility] ALT (SGPT) 14 10 - 60 unit/L LAB CHEMISTRY METHOD 05/30/2025 6:57 AM [facility] AST (SGOT) 45(H) 10 - 42 unit/L LAB CHEMISTRY METHOD 05/30/2025 6:57 AM [facility] Alkaline Phosphatase 195(H) 42 - 121 unit/L LAB CHEMISTRY METHOD 05/30/2025 6:57 AM [facility] Blood Venous blood specimen / Unknown Venipuncture / Unknown 05/30/2025 6:12 AM EDT 05/30/2025 6:28 AM EDT [facility] BLOOD ORDERABLES Final R esult Performing Organization Address [facility]/ZIP Co de Phone Number [facility] [address] [place] [address], [place] [phone] * Phosphorus (05/30/2025 6:12 AM EDT) Phosphorus 3.2 2.5 - 4.5 mg/dL LAB CHEMISTRY METHOD 05/30/2025 6:54 AM EDT [facility] Blood Venous blood specimen / Unknown Venipuncture / Unknown 05/30/2025 6:12 AM EDT 05/30/2025 6:28 AM EDT [facility] BLOOD ORDERABLES Final R esult Performing Organization Address [facility] Co de Phone Number [facility] [address] [place] [address], [place] [phone] * Magnesium (05/30/2025 6:12 AM EDT) Magnesium 2.1 1.9 - 2.6 mg/dL LAB CHEMISTRY METHOD 05/30/2025 6:54 AM EDT [facility] Blood Venous blood specimen / Unknown Venipuncture / Unknown 05/30/2025 6:12 AM EDT 05/30/2025 6:28 AM EDT [facility] BLOOD ORDERABLES Final R esult Performing Organization Address [facility]/ZIP Co de Phone Number [facility] [address] [place] [address], [place] [phone] * (ABNORMAL) Calcium, ionized (05/30/2025 6:12 AM EDT) Calcium Ionized 4.13(L) 4.50 - 5.30 mg/dL 05/30/2025 6:34 AM [facility] Blood Venous blood specimen / Unknown Venipuncture / Unknown 05/30/2025 6:12 AM EDT 05/30/2025 6:28 AM EDT Amarjit Ayala DO LAB BLOOD ORDERABLES Final R esult [facility] [address] [place] [address], * (ABNORMAL) Basic metabolic panel (05/30/2025 6:12 AM EDT) Pathologist [facility] Sodium 140 133 - 145 mmol/L LAB CHEMISTRY METHOD 05/30/2025 6:54 AM [facility] Potassium 3.1(L) 3.5 - 5.5 mmol/L LAB CHEMISTRY METHOD 05/30/2025 6:54 AM [facility] Chloride 101 96 - 110 mmol/L LAB CHEMISTRY METHOD 05/30/2025 6:54 AM [facility] CO2 31 21 - 32 mmol/L LAB CHEMISTRY METHOD 05/30/2025 6:54 AM [facility] Anion Gap 8 3 - 11 LAB CHEMISTRY METHOD 05/30/2025 6:54 AM [facility] Glucose 77 70 - 100 mg/dL LAB CHEMISTRY METHOD 05/30/2025 6:54 AM [facility] BUN 28(H) 5 - 25 mg/dL LAB CHEMISTRY METHOD 05/30/2025 6:54 AM [facility] Creatinine 3.55(H) 0.50 - 1.10 mg/dL LAB CHEMISTRY METHOD 05/30/2025 6:54 AM [facility] eGFR 12(L) >=60 mL/min/1. 73m2 LAB CHEMISTRY METHOD 05/30/2025 6:54 AM EDT [facility] Comment:Calculation based on the Chronic Kidney Disease Epidemiology Collaboration (CKD-EPI) equation refit without adjustment for race. BUN/Creatinine Ratio 7.9 LAB CHEMISTRY METHOD 05/30/2025 6:54 AM EDT [facility] Calcium 8.0(L) 8.5 - 10.5 mg/dL LAB CHEMISTRY METHOD 05/30/2025 6:54 AM EDT [facility] Blood Venous blood specimen / Unknown Venipuncture / Unknown 05/30/2025 6:12 AM EDT 05/30/2025 6:28 AM EDT us Amarjit Ayala DO LAB BLOOD ORDERABLES Final R esult Performing Organization Address City/[facility]/ZIP Co de Phone Number [facility] [address] [place] [address], [place] [phone] * (ABNORMAL) POCT Glucose, blood (05/30/2025 12:31 AM EDT) Glucose POCT 103(H) 70 - 100 mg/dL 05/30/2025 12:31 AM EDT [facility] Blood Capillary blood specimen / Unknown 05/30/2025 12:31 AM EDT 05/30/2025 12:32 AM EDT us Charlotte Camara MD LAB POINT OF CARE TE ST DOCKED DEVICE UNSOLICITED RESULTS Final Result [facility] [address] [place] [address], [place] [phone] * POCT Glucose, blood (05/29/2025 5:07 PM EDT) Glucose POCT 79 70 - 100 mg/dL 05/29/2025 5:08 PM EDT [facility] Blood Capillary blood specimen / Unknown 05/29/2025 5:07 PM EDT 05/29/2025 5:09 PM EDT Charlotte Camara MD LAB POINT OF CARE TE ST DOCKED DEVICE UNSOLICITED RESULTS Final Result [facility] [address] [place] [address], [place] [phone] * POCT Glucose, blood (05/29/2025 8:22 AM EDT) Pathologist [facility] Glucose POCT 94 70 - 100 mg/dL 05/29/2025 8:22 AM EDT [facility] Blood Capillary blood specimen / Unknown 05/29/2025 8:22 AM EDT 05/29/2025 8:26 AM EDT Charlotte Camara MD LAB POINT OF CARE TE ST DOCKED DEVICE UNSOLICITED RESULTS Final Result [facility] [address] [place] [address], [place] [phone] * (ABNORMAL) CBC - Every 3 Days (05/29/2025 5:04 AM EDT) WBC 8.5 4.8 - 10.8 K/mcL LAB HEMETOLOGY METHOD 05/29/2025 5:19 AM EDT [facility] RBC 2.90(L) 3.80 - 4.80 M/mcL LAB HEMETOLOGY METHOD 05/29/2025 5:19 AM EDT [facility] Hemoglobin 7.6(L) 11.5 - 16.0 g/dL LAB HEMETOLOGY METHOD 05/29/2025 5:19 AM EDT [facility] Hematocrit 24.9(L) 35.0 - 47.0 % LAB HEMETOLOGY METHOD 05/29/2025 5:19 AM EDT [facility] MCV 85.3 79.0 - 98.0 FL LAB HEMETOLOGY METHOD 05/29/2025 5:19 AM EDT [facility] MCH 26.0(L) 27.0 - 32.0 pcg LAB HEMETOLOGY METHOD 05/29/2025 5:19 AM EDT [facility] MCHC 30.5(L) 32.0 - 37.0 g/dL LAB HEMETOLOGY METHOD 05/29/2025 5:19 AM EDT [facility] RDW 21.0(H) 11.0 - 15.0 % LAB HEMETOLOGY METHOD 05/29/2025 5:19 [facility] Platelets 214 130 - 400 K/mcL LAB HEMETOLOGY METHOD 05/29/2025 5:19 AM EDT [facility] MPV 10.7 7.0 - 11.0 FL LAB HEMETOLOGY METHOD 05/29/2025 5:19 AM EDT [facility] NRBC 0.2 <1.0 % LAB HEMETOLOGY METHOD 05/29/2025 5:19 AM [facility] NRBC Absolute 0.02 <0.10 K/mcL LAB HEMETOLOGY METHOD 05/29/2025 5:19 AM [facility] Blood Blood sample taken from central line / Unknown Venipuncture / Unknown 05/29/2025 5:04 AM EDT 05/29/2025 5:12 AM EDT us Charlotte Camara MD LAB BLOOD ORDERABLES Final Re sult [facility] [address] [place] [address], * (ABNORMAL) CBC auto differential (05/29/2025 5:04 AM EDT) [facility] WBC 8.5 4.8 - 10.8 K/mcL LAB HEMETOLOGY METHOD 05/29/2025 5:19 AM [facility] RBC 2.90(L) 3.80 - 4.80 M/mcL LAB HEMETOLOGY METHOD 05/29/2025 5:19 AM [facility] Hemoglobin 7.6(L) 11.5 - 16.0 g/dL LAB HEMETOLOGY METHOD 05/29/2025 5:19 AM [facility] Hematocrit 24.9(L) 35.0 - 47.0 % LAB HEMETOLOGY METHOD 05/29/2025 5:19 AM [facility] MCV 85.3 79.0 - 98.0 FL LAB HEMETOLOGY METHOD 05/29/2025 5:19 AM [facility] MCH 26.0(L) 27.0 - 32.0 pcg LAB HEMETOLOGY METHOD 05/29/2025 5:19 AM [facility] MCHC 30.5(L) 32.0 - 37.0 g/dL LAB HEMETOLOGY METHOD 05/29/2025 5:19 AM [facility] RDW 21.0(H) 11.0 - 15.0 % LAB HEMETOLOGY METHOD 05/29/2025 5:19 AM [facility] Platelets 214 130 - 400 K/mcL LAB HEMETOLOGY METHOD 05/29/2025 5:19 AM [facility] MPV 10.7 7.0 - 11.0 FL LAB HEMETOLOGY METHOD 05/29/2025 5:19 AM [facility] NRBC 0.2 <1.0 % LAB HEMETOLOGY METHOD 05/29/2025 5:19 AM [facility] NRBC Absolute 0.02 <0.10 K/mcL LAB HEMETOLOGY METHOD 05/29/2025 5:19 AM [facility] Neutrophils Relative 73.3 % LAB HEMETOLOGY METHOD 05/29/2025 5:19 AM [facility] Lymphocytes Relative 14.7 % LAB HEMETOLOGY METHOD 05/29/2025 5:19 AM [facility] Monocytes Relative 8.2 % LAB HEMETOLOGY METHOD 05/29/2025 5:19 AM [facility] Eosinophils Relative 2.5 % LAB HEMETOLOGY METHOD 05/29/2025 5:19 AM [facility] Basophils Relative 0.2 % LAB HEMETOLOGY METHOD 05/29/2025 5:19 AM [facility] Immature Granulocytes Relative 1.1 % LAB HEMETOLOGY METHOD 05/29/2025 5:19 AM [facility] Neutrophils Absolute 6.25 1.50 - 7.00 K/mcL LAB HEMETOLOGY METHOD 05/29/2025 5:19 AM [facility] Lymphocytes Absolute 1.25 1.00 - 5.00 K/mcL LAB HEMETOLOGY METHOD 05/29/2025 5:19 AM [facility] Monocytes Absolute 0.70 0.20 - 1.00 K/mcL LAB HEMETOLOGY METHOD 05/29/2025 5:19 AM [facility] Eosinophils Absolute 0.21 0.00 - 0.50 K/mcL LAB HEMETOLOGY METHOD 05/29/2025 5:19 AM [facility] Basophils Absolute 0.02 0.00 - 0.20 K/mcL LAB HEMETOLOGY METHOD 05/29/2025 5:19 AM [facility] Immature Granulocytes Absolute 0.09(H) 0.00 - 0.03 K/mcL LAB HEMETOLOGY METHOD 05/29/2025 5:19 AM [facility] Blood Blood sample taken from central line / Unknown Venipuncture / Unknown 05/29/2025 5:04 AM EDT 05/29/2025 5:12 AM EDT us Charlotte Camara MD LAB BLOOD ORDERABLES Final Re sult [facility] [address] [place] [address], * (ABNORMAL) Basic metabolic panel (05/29/2025 5:04 AM EDT) Sodium 133 133 - 145 mmol/L LAB CHEMISTRY METHOD 05/29/2025 5:47 AM [facility] Potassium 3.5 3.5 - 5.5 mmol/L LAB CHEMISTRY METHOD 05/29/2025 5:47 AM [facility] Chloride 95(L) 96 - 110 mmol/L LAB CHEMISTRY METHOD 05/29/2025 5:47 AM [facility] CO2 30 21 - 32 mmol/L LAB CHEMISTRY METHOD 05/29/2025 5:47 AM [facility] Anion Gap 8 3 - 11 LAB CHEMISTRY METHOD 05/29/2025 5:47 AM [facility] Glucose 98 70 - 100 mg/dL LAB CHEMISTRY METHOD 05/29/2025 5:47 AM [facility] BUN 26(H) 5 - 25 mg/dL LAB CHEMISTRY METHOD 05/29/2025 5:47 AM [facility] Creatinine 2.98(H) 0.50 - 1.10 mg/dL LAB CHEMISTRY METHOD 05/29/2025 5:47 AM [facility] eGFR 15(L) >=60 mL/min/1. 73m2 LAB CHEMISTRY METHOD 05/29/2025 5:47 AM [facility] Comment:Calculation based on the Chronic Kidney Disease Epidemiology Collaboration (CKD-EPI) equation refit without adjustment for race. BUN/Creatinine Ratio 8.7 LAB CHEMISTRY METHOD 05/29/2025 5:47 AM EDT [facility] Calcium 8.0(L) 8.5 - 10.5 mg/dL LAB CHEMISTRY METHOD 05/29/2025 5:47 AM EDT [facility] Blood Blood sample taken from central line / Unknown Venipuncture / Unknown 05/29/2025 5:04 AM EDT 05/29/2025 5:12 AM EDT us Charlotte Camara MD LAB BLOOD ORDERABLES Final Re sult Performing Organization Address City/[facility]/ZIP Co de Phone Number [facility] [address] [place] [address], [place] [phone] * Phosphorus (05/29/2025 5:04 AM EDT) Phosphorus 3.0 2.5 - 4.5 mg/dL LAB CHEMISTRY METHOD 05/29/2025 5:47 AM EDT [facility] Blood Blood sample taken from central line / Unknown Venipuncture / Unknown 05/29/2025 5:04 AM EDT 05/29/2025 5:12 AM EDT us Charlotte Camara MD LAB BLOOD ORDERABLES Final Re sult [facility] [address] [place] [address], [place] [phone] * Magnesium (05/29/2025 5:04 AM EDT) Magnesium 2.1 1.9 - 2.6 mg/dL LAB CHEMISTRY METHOD 05/29/2025 5:47 AM EDT [facility] Blood Blood sample taken from central line / Unknown Venipuncture / Unknown 05/29/2025 5:04 AM EDT 05/29/2025 5:12 AM EDT us Charlotte Camara MD LAB BLOOD ORDERABLES Final Re sult [facility] [address] [place] [address], [place] [phone] * (ABNORMAL) Calcium, ionized (05/29/2025 5:04 AM EDT) Calcium Ionized 4.32(L) 4.50 - 5.30 mg/dL 05/29/2025 5:19 AM EDT [facility] Blood Blood sample taken from central line / Unknown Venipuncture / Unknown 05/29/2025 5:04 AM EDT 05/29/2025 5:12 AM EDT us Charlotte Camara MD LAB BLOOD ORDERABLES Final Re sult Performing Organization Address [facility]/ZIP Co de Phone Number [facility] [address] [place] [address], [place] [phone] * (ABNORMAL) POCT Glucose, blood (05/28/2025 11:27 PM EDT) Glucose POCT 115(H) 70 - 100 mg/dL 05/28/2025 11:27 PM EDT [facility] Blood Capillary blood specimen / Unknown 05/28/2025 11:27 PM EDT 05/28/2025 11:28 PM EDT us Charlotte Camara MD LAB POINT OF CARE TE ST DOCKED DEVICE UNSOLICITED RESULTS Final Result Performing Organization Address [facility]/ZIP Co de Phone Number [facility] [address] [place] [address], [place] [phone] * (ABNORMAL) Venous blood gas (05/28/2025 10:26 PM EDT) pH, Mukesh 7.45(H) 7.32 - 7.42 pH 05/28/2025 10:47 PM EDT [facility] pCO2, Mukesh 54(H) 41 - 51 mmHg 05/28/2025 10:47 PM EDT [facility] pO2, Mukesh 33 25 - 40 mmHg 05/28/2025 10:47 PM EDT [facility] HCO3, Venous 33.6(H) 22.0 - 26.0 mmol/L 05/28/2025 10:47 PM EDT [facility] O2 Sat, Mukesh 59.7 % 05/28/2025 10:47 PM EDT [facility] Base Excess, Mukesh 12.0(H) -2.0 - 2.0 mmol/L 05/28/2025 10:47 PM EDT [facility] Blood Venous blood specimen / Unknown Venipuncture / Unknown 05/28/2025 10:26 PM EDT 05/28/2025 10:44 PM EDT us Charlotte Camara MD LAB BLOOD ORDERABLES Final Re sult [facility] [address] [place] [address], * (ABNORMAL) POCT Glucose, blood (05/28/2025 10:17 PM EDT) Glucose POCT 122(H) 70 - 100 mg/dL 05/28/2025 10:18 PM EDT [facility] Blood Capillary blood specimen / Unknown 05/28/2025 10:17 PM EDT 05/28/2025 10:19 PM EDT us Charlotte Camara MD LAB POINT OF CARE TE ST DOCKED DEVICE UNSOLICITED RESULTS Final Result Performing Organization Address [facility] Co de Phone Number [facility] [address] [place] [address], * (ABNORMAL) Phosphorus (05/28/2025 8:51 PM EDT) Phosphorus 2.0(L) 2.5 - 4.5 mg/dL LAB CHEMISTRY METHOD 05/28/2025 10:22 PM EDT [facility] Blood Blood sample taken from central line / Unknown Existing Catheter / Unknown 05/28/2025 8:51 PM EDT 05/28/2025 9:20 PM EDT us Eddie AGARWAL LAB BLOOD ORDERABLES Final Resul t Performing Organization Address [facility] de Phone Number [facility] [address] [place] [address], * (ABNORMAL) Magnesium (05/28/2025 8:51 PM EDT) Magnesium 1.8(L) 1.9 - 2.6 mg/dL LAB CHEMISTRY METHOD 05/28/2025 10:22 PM EDT [facility] Blood Blood sample taken from central line / Unknown Existing Catheter / Unknown 05/28/2025 8:51 PM EDT 05/28/2025 9:20 PM EDT us Eddie AGARWAL LAB BLOOD ORDERABLES Final Resul t Performing Organization Address [facility] de Phone Number [facility] [address] [place] [address], * (ABNORMAL) Calcium, ionized (05/28/2025 8:51 PM EDT) Calcium Ionized 3.99(L) 4.50 - 5.30 mg/dL 05/28/2025 9:40 PM EDT [facility] Blood Blood sample taken from central line / Unknown Existing Catheter / Unknown 05/28/2025 8:51 PM EDT 05/28/2025 9:20 PM EDT us Eddie AGARWAL LAB BLOOD ORDERABLES Final Resul t [facility] [address] [place] [address], [place] [phone] * (ABNORMAL) Basic metabolic panel (05/28/2025 8:51 PM EDT) Sodium 138 133 - 145 mmol/L LAB CHEMISTRY METHOD 05/28/2025 10:33 PM [facility] Potassium 3.4(L) 3.5 - 5.5 mmol/L LAB CHEMISTRY METHOD 05/28/2025 10:33 PM [facility] Chloride 100 96 - 110 mmol/L LAB CHEMISTRY METHOD 05/28/2025 10:33 PM [facility] CO2 26 21 - 32 mmol/L LAB CHEMISTRY METHOD 05/28/2025 10:33 PM [facility] Anion Gap 12(H) 3 - 11 LAB CHEMISTRY METHOD 05/28/2025 10:33 PM [facility] Glucose 109(H) 70 - 100 mg/dL LAB CHEMISTRY METHOD 05/28/2025 10:33 PM [facility] BUN 25 5 - 25 mg/dL LAB CHEMISTRY METHOD 05/28/2025 10:33 PM [facility] Creatinine 3.04(H) 0.50 - 1.10 mg/dL LAB CHEMISTRY METHOD 05/28/2025 10:33 PM [facility] eGFR 15(L) >=60 mL/min/1. 73m2 LAB CHEMISTRY METHOD 05/28/2025 10:33 PM [facility] Comment:Calculation based on the Chronic Kidney Disease Epidemiology Collaboration (CKD-EPI) equation refit without adjustment for race. BUN/Creatinine Ratio 8.2 LAB CHEMISTRY METHOD 05/28/2025 10:33 PM EDT [facility] Calcium 7.5(L) 8.5 - 10.5 mg/dL LAB CHEMISTRY METHOD 05/28/2025 10:33 PM EDT [facility] Blood Blood sample taken from central line / Unknown Existing Catheter / Unknown 05/28/2025 8:51 PM EDT 05/28/2025 9:20 PM EDT us Eddie AGARWAL LAB BLOOD ORDERABLES Final Resul t [facility] [address] [place] [address], [place] [phone] * (ABNORMAL) POCT Glucose, blood (05/28/2025 7:57 PM EDT) Glucose POCT 106(H) 70 - 100 mg/dL 05/28/2025 7:58 PM EDT [facility] Blood Capillary blood specimen / Unknown 05/28/2025 7:57 PM EDT 05/28/2025 7:59 PM EDT Charlotte Camara MD LAB POINT OF CARE TE ST DOCKED DEVICE UNSOLICITED RESULTS Final Result Performing Organization Address City/[facility]/ZIP Co de Phone Number [facility] [address] [place] [address], [place] [phone] * (ABNORMAL) Activated Partial Thromboplastin Time - STAT (05/28/2025 5:22 PM EDT) aPTT 109.1(HH) 24.1 - 39.3 sec LAB COAGULATION METHOD 05/28/2025 6:26 PM EDT [facility] Blood Venous blood specimen / Unknown Venipuncture / Unknown 05/28/2025 5:22 PM EDT 05/28/2025 5:35 PM EDT us Charlotte Camara MD LAB BLOOD ORDERABLES Final Re sult Performing Organization Address [facility]/ZIP Co de Phone Number [facility] [address] [place] [address], [place] [phone] * (ABNORMAL) Prothrombin Time with INR - STAT (05/28/2025 5:22 PM EDT) Pathologist [facility] Protime 15.6(H) 10.6 - 13.9 sec LAB COAGULATION METHOD 05/28/2025 6:00 PM EDT [facility] INR 1.2 LAB COAGULATION METHOD 05/28/2025 6:00 PM EDT [facility] Blood Venous blood specimen / Unknown Venipuncture / Unknown 05/28/2025 5:22 PM EDT 05/28/2025 5:35 PM EDT us Charlotte Camara MD LAB BLOOD ORDERABLES Final Re sult Performing Organization Address City/[facility]/ZIP Co de Phone Number [facility] [address] [place] [address], [place] [phone] * (ABNORMAL) Basic metabolic panel (05/28/2025 2:27 PM EDT) [facility] Sodium 140 133 - 145 mmol/L LAB CHEMISTRY METHOD 05/28/2025 3:27 PM EDT [facility] Potassium 4.3 3.5 - 5.5 mmol/L LAB CHEMISTRY METHOD 05/28/2025 3:27 PM EDT [facility] Chloride 107 96 - 110 mmol/L LAB CHEMISTRY METHOD 05/28/2025 3:27 PM EDT [facility] CO2 26 21 - 32 mmol/L LAB CHEMISTRY METHOD 05/28/2025 3:27 PM EDT [facility] Anion Gap 7 3 - 11 LAB CHEMISTRY METHOD 05/28/2025 3:27 PM EDT [facility] Glucose 88 70 - 100 mg/dL LAB CHEMISTRY METHOD 05/28/2025 3:27 PM EDT [facility] BUN 21 5 - 25 mg/dL LAB CHEMISTRY METHOD 05/28/2025 3:27 PM EDT [facility] Creatinine 2.29(H) 0.50 - 1.10 mg/dL LAB CHEMISTRY METHOD 05/28/2025 3:27 PM EDT [facility] eGFR 21(L) >=60 mL/min/1. 73m2 LAB CHEMISTRY METHOD 05/28/2025 3:27 PM EDT [facility] Comment:Calculation based on the Chronic Kidney Disease Epidemiology Collaboration (CKD-EPI) equation refit without adjustment for race. BUN/Creatinine Ratio 9.2 LAB CHEMISTRY METHOD 05/28/2025 3:27 PM EDT [facility] Calcium 6.7(L) 8.5 - 10.5 mg/dL LAB CHEMISTRY METHOD 05/28/2025 3:27 PM EDT [facility] Blood Venous blood specimen / Unknown Venipuncture / Unknown 05/28/2025 2:27 PM EDT 05/28/2025 2:37 PM EDT us Charlotte Camara MD LAB BLOOD ORDERABLES Final Re sult [facility] [address] [place] [address], * Heparin and low molecular weight anti Xa level (05/28/2025 11:27 AM EDT) Heparin Anti-Xa 0.56 0.30 - 0.70 I Unit/mL LAB COAGULATION METHOD 05/28/2025 12:14 PM EDT [facility] Blood Venous blood specimen / Unknown Venipuncture / Unknown 05/28/2025 11:27 AM EDT 05/28/2025 11:37 AM EDT Narrative [facility] - 05/28/2025 12:14 PM EDT Therapeutic range listed is for Unfractionated Heparin. LMW Heparin therapeutic range: 0.50-1.20 IU/mL us Charlotte Camara MD LAB BLOOD ORDERABLES Final Re sult Performing Organization Address City/[facility]/ZIP Co de Phone Number [facility] [address] [place] [address], [place] [phone] * (ABNORMAL) Albumin (05/28/2025 9:22 AM EDT) [facility] Albumin 1.8(L) 3.2 - 5.0 g/dL LAB CHEMISTRY METHOD 05/28/2025 10:04 AM EDT [facility] Blood Venous blood specimen / Unknown Venipuncture / Unknown 05/28/2025 9:22 AM EDT 05/28/2025 9:31 AM EDT us Charlotte Camara MD LAB BLOOD ORDERABLES Final Re sult Performing Organization Address City/[facility]/ZIP Co de Phone Number [facility] [address] [place] [address], [place] [phone] * Heparin and low molecular weight anti Xa level (05/28/2025 5:44 AM EDT) Heparin Anti-Xa 0.40 0.30 - 0.70 I Unit/mL LAB COAGULATION METHOD 05/28/2025 6:29 AM EDT [facility] Blood Venous blood specimen / Unknown Existing Catheter / Unknown 05/28/2025 5:44 AM EDT 05/28/2025 6:16 AM EDT Kailey [facility] - 05/28/2025 6:29 AM EDT Therapeutic range listed is for Unfractionated Heparin. LMW Heparin therapeutic range: 0.50-1.20 IU/mL us Charlotte Camara MD LAB BLOOD ORDERABLES Final Re sult [facility] [address] [place] [address], [place] [phone] * (ABNORMAL) CBC auto differential (05/28/2025 3:57 AM EDT) WBC 7.9 4.8 - 10.8 K/mcL LAB HEMETOLOGY METHOD 05/28/2025 4:12 AM EDT [facility] RBC 2.90(L) 3.80 - 4.80 M/mcL LAB HEMETOLOGY METHOD 05/28[facility]2025 [facility] Hemoglobin 7.5(L) 11.5 - 16.0 g/dL LAB HEMETOLOGY METHOD 05/28/2025 4:12 AM [facility] Hematocrit 24.7(L) 35.0 - 47.0 % LAB HEMETOLOGY METHOD 05/28/2025 4:12 AM EDT [facility] MCV 86.7 79.0 - 98.0 FL LAB HEMETOLOGY METHOD 05/28/2025 4:12 AM [facility] MCH 26.3(L) 27.0 - 32.0 pcg LAB HEMETOLOGY METHOD 05/28/2025 4:12 AM EDT [facility] MCHC 30.4(L) 32.0 - 37.0 g/dL LAB HEMETOLOGY METHOD 05/28/2025 4:12 AM [facility] RDW 20.1(H) 11.0 - 15.0 % LAB HEMETOLOGY METHOD 05/28/2025 4:12 AM [facility] Platelets 231 130 - 400 K/mcL LAB HEMETOLOGY METHOD 05/28/2025 4:12 [facility] MPV 11.1(H) 7.0 - 11.0 FL LAB HEMETOLOGY METHOD 05/28/2025 4:12 AM [facility] NRBC 0.3 <1.0 % LAB HEMETOLOGY METHOD 05/28/2025 4:12 AM [facility] NRBC Absolute 0.02 <0.10 K/mcL LAB HEMETOLOGY METHOD 05/28/2025 4:12 AM [facility] Neutrophils Relative 72.3 % LAB HEMETOLOGY METHOD 05/28/2025 4:12 AM [facility] Lymphocytes Relative 14.9 % LAB HEMETOLOGY METHOD 05/28/2025 4:12 AM [facility] Monocytes Relative 9.2 % LAB HEMETOLOGY METHOD 05/28/2025 4:12 AM [facility] Eosinophils Relative 2.5 % LAB HEMETOLOGY METHOD 05/28/2025 4:12 AM [facility] Basophils Relative 0.3 % LAB HEMETOLOGY METHOD 05/28/2025 4:12 AM [facility] Immature Granulocytes Relative 0.8 % LAB HEMETOLOGY METHOD 05/28/2025 4:12 AM [facility] Neutrophils Absolute 5.69 1.50 - 7.00 K/mcL LAB HEMETOLOGY METHOD 05/28/2025 4:12 AM [facility] Lymphocytes Absolute 1.17 1.00 - 5.00 K/mcL LAB HEMETOLOGY METHOD 05/28/2025 4:12 AM [facility] Monocytes Absolute 0.72 0.20 - 1.00 K/mcL LAB HEMETOLOGY METHOD 05/28/2025 4:12 AM [facility] Eosinophils Absolute 0.20 0.00 - 0.50 K/mcL LAB HEMETOLOGY METHOD 05/28/2025 4:12 AM EDT [facility] Basophils Absolute 0.02 0.00 - 0.20 K/mcL LAB HEMETOLOGY METHOD 05/28/2025 4:12 AM EDT [facility] Immature Granulocytes Absolute 0.06(H) 0.00 - 0.03 K/mcL LAB HEMETOLOGY METHOD 05/28/2025 4:12 AM EDT [facility] Blood Venous blood specimen / Unknown Existing Catheter / Unknown 05/28/2025 3:57 AM EDT 05/28/2025 4:03 AM EDT us Charlotte Camara MD LAB BLOOD ORDERABLES Final Re sult [facility] [address] [place] [address], * (ABNORMAL) Comprehensive metabolic panel (05/28/2025 3:57 AM EDT) Sodium 139 133 - 145 mmol/L LAB CHEMISTRY METHOD 05/28/2025 5:00 AM [facility] Potassium 3.4(L) 3.5 - 5.5 mmol/L LAB CHEMISTRY METHOD 05/28/2025 5:00 AM [facility] Chloride 100 96 - 110 mmol/L LAB CHEMISTRY METHOD 05/28/2025 5:00 AM [facility] CO2 28 21 - 32 mmol/L LAB CHEMISTRY METHOD 05/28/2025 5:00 AM [facility] Anion Gap 11 3 - 11 LAB CHEMISTRY METHOD 05/28/2025 5:00 AM [facility] Glucose 101(H) 70 - 100 mg/dL LAB CHEMISTRY METHOD 05/28/2025 5:00 AM [facility] BUN 59(H) 5 - 25 mg/dL LAB CHEMISTRY METHOD 05/28/2025 5:00 AM [facility] Creatinine 5.33(H) 0.50 - 1.10 mg/dL LAB CHEMISTRY METHOD 05/28/2025 5:00 AM [facility] eGFR 8(L) >=60 mL/min/1. 73m2 LAB CHEMISTRY METHOD 05/28/2025 5:00 AM [facility] Comment:Calculation based on the Chronic Kidney Disease Epidemiology Collaboration (CKD-EPI) equation refit without adjustment for race. BUN/Creatinine Ratio 11.1 LAB CHEMISTRY METHOD 05/28/2025 5:00 AM [facility] Calcium 8.1(L) 8.5 - 10.5 mg/dL LAB CHEMISTRY METHOD 05/28/2025 5:00 AM [facility] AST (SGOT) 47(H) 10 - 42 unit/L LAB CHEMISTRY METHOD 05/28/2025 5:00 AM [facility] ALT (SGPT) 15 10 - 60 unit/L LAB CHEMISTRY METHOD 05/28/2025 5:00 AM [facility] Alkaline Phosphatase 189(H) 42 - 121 unit/L LAB CHEMISTRY METHOD 05/28/2025 5:00 AM [facility] Total Protein 5.3(L) 6.0 - 8.0 g/dL LAB CHEMISTRY METHOD 05/28/2025 5:00 AM [facility] Albumin 1.5(L) 3.2 - 5.0 g/dL LAB CHEMISTRY METHOD 05/28/2025 5:00 AM [facility] Total Bilirubin 0.3 0.0 - 1.4 mg/dL LAB CHEMISTRY METHOD 05/28/2025 5:00 AM [facility] Blood Venous blood specimen / Unknown Existing Catheter / Unknown 05/28/2025 3:57 AM EDT 05/28/2025 4:04 AM EDT Charlotte Camara MD LAB BLOOD ORDERABLES Final Re sult Performing Organization Address [facility]/ZIP Co de Phone Number [facility] [address] [place] [address], * (ABNORMAL) Venous blood gas (05/28/2025 3:57 AM EDT) pH, Mukesh 7.36 7.32 - 7.42 pH 05/28/2025 4:06 AM EDT [facility] pCO2, Mukesh 52(H) 41 - 51 mmHg 05/28/2025 4:06 AM EDT [facility] pO2, Mukesh 31 25 - 40 mmHg 05/28/2025 4:06 AM EDT [facility] HCO3, Venous 26.9(H) 22.0 - 26.0 mmol/L 05/28/2025 4:06 AM EDT [facility] O2 Sat, Mukesh 54.8 % 05/28/2025 4:06 AM EDT [facility] Base Excess, Mukesh 3.4(H) -2.0 - 2.0 mmol/L 05/28/2025 4:06 AM EDT [facility] Blood Venous blood specimen / Unknown Existing Catheter / Unknown 05/28/2025 3:57 AM EDT 05/28/2025 4:02 AM EDT Charlotte Camara MD LAB BLOOD ORDERABLES Final Re sult [facility] [address] [place] [address], * Phosphorus (05/28/2025 3:57 AM EDT) Phosphorus 3.3 2.5 - 4.5 mg/dL LAB CHEMISTRY METHOD 05/28/2025 4:58 AM EDT [facility] Blood Venous blood specimen / Unknown Existing Catheter / Unknown 05/28/2025 3:57 AM EDT 05/28/2025 4:04 AM EDT us Charlotte Camara MD LAB BLOOD ORDERABLES Final Re sult Performing Organization Address [facility]/ZIP Co de Phone Number [facility] [address] [place] [address], [place] [phone] * Magnesium (05/28/2025 3:57 AM EDT) Magnesium 2.0 1.9 - 2.6 mg/dL LAB CHEMISTRY METHOD 05/28/2025 4:58 AM EDT [facility] Blood Venous blood specimen / Unknown Existing Catheter / Unknown 05/28/2025 3:57 AM EDT 05/28/2025 4:04 AM EDT us Charlotte Camara MD LAB BLOOD ORDERABLES Final Re sult Performing Organization Address [facility] Co de Phone Number [facility] [address] [place] [address], [place] [phone] * (ABNORMAL) Calcium, ionized (05/28/2025 3:57 AM EDT) Calcium Ionized 4.32(L) 4.50 - 5.30 mg/dL 05/28/2025 4:07 AM EDT [facility] Blood Venous blood specimen / Unknown Existing Catheter / Unknown 05/28/2025 3:57 AM EDT 05/28/2025 4:03 AM EDT us Charlotte Camara MD LAB BLOOD ORDERABLES Final Re sult Performing Organization Address City/[facility]/ZIP Co de Phone Number [facility] [address] [place] [address], [place] [phone] * Lactate (05/28/2025 3:57 AM EDT) Lactate 1.7 0.4 - 2.0 mmol/L LAB CHEMISTRY METHOD 05/28/2025 4:35 AM EDT [facility] Blood Venous blood specimen / Unknown Existing Catheter / Unknown 05/28/2025 3:57 AM EDT 05/28/2025 4:03 AM EDT us Charlotte Camara MD LAB BLOOD ORDERABLES Final Re sult [facility] [address] [place] [address], [place] [phone] * POCT Glucose, blood (05/27/2025 11:34 PM EDT) Glucose POCT 86 70 - 100 mg/dL 05/27/2025 11:34 PM EDT [facility] Blood Capillary blood specimen / Unknown 05/27/2025 11:34 PM EDT 05/27/2025 11:35 PM EDT us Charlotte Camara MD LAB POINT OF CARE TE ST DOCKED DEVICE UNSOLICITED RESULTS Final Result [facility] [address] [place] [address], [place] [phone] * (ABNORMAL) POCT Glucose, blood (05/27/2025 7:53 PM EDT) Glucose POCT 109(H) 70 - 100 mg/dL 05/27/2025 7:53 PM EDT [facility] Blood Capillary blood specimen / Unknown 05/27/2025 7:53 PM EDT 05/27/2025 7:54 PM EDT us Chralotte Camara MD LAB POINT OF CARE TE ST DOCKED DEVICE UNSOLICITED RESULTS Final Result Performing Organization Address [facility] Co de Phone Number [facility] [address] [place] [address], [place] [phone] * (ABNORMAL) POCT Glucose, blood (05/27/2025 5:01 PM EDT) Glucose POCT 112(H) 70 - 100 mg/dL 05/27/2025 5:03 PM EDT [facility] Blood Capillary blood specimen / Unknown 05/27/2025 5:01 PM EDT 05/27/2025 5:04 PM EDT Charlotte Camara MD LAB POINT OF CARE TE ST DOCKED DEVICE UNSOLICITED RESULTS Final Result Performing Organization Address [facility] de Phone Number [facility] [address] [place] [address], [place] [phone] * IR Insert Tunneled CVC wo Port or Pump More 5yrs Left (05/27/2025 4:09 PM EDT) Anatomical Region Laterality Modality Left Interventional R adiology 05/28/2025 8:29 AM EDT Impressions 05/28/2025 3:05 PM EDT Right internal jugular vein HD catheter placement. 23 cm tip to cuff catheter utilized. Catheter is available for immediate use. -------- FINAL REPORT -------- Dictated By: Sharon Hassan Dictated Date: 05/28/2025 08:29 ET Assigned Physician: Gladis Mcgovern Reviewed and Electronically Signed By: Gladis Mcgovern Signed Date: 05/28/2025 15:05 ET Workstation ID: [id number] Transcribed By: Self Edit Transcribed Date: 05/28/2025 08:30 ET Resident/PA/DEPARTMENT [employer]FFIC [employer]RE[employer]OUTER: Sharon Hassan Narrative 05/28/2025 3:05 PM EDT INDICATIONS: HD catheter HISTORY: Patient is an 79-year-old female with history of acute kidney injury TECHNIQUE: Patient was brought to angiography suite placed in a supine position. Ultrasound imaging demonstrates venous patency. The patient's right neck was assessed and subsequently prepped and draped in the usual and sterile fashion. Maximum sterile barrier technique was used. A timeout was performed. 2% lidocaine was used for skin anesthesia. Moderate intravenous sedation was initiated and maintained for approximately 30 minutes while the patient was independently monitored by the radiology nurse under the supervision of the interventional radiologist. A total of 0.5 mg of Versed and 25 mcg of fentanyl administered during the procedure. Under continuous ultrasound guidance, a micropuncture needle was advanced into the vein. There was dark venous return, a 0.018 wire was advanced centrally. A 3-5 sheath dilator was then advanced over the wire. The inner dilator and wire were removed and an 0.035 wire was advanced centrally. Attention was then turned to the tunnel. Additional LIDOCAINE with EPINEPHRINE was injected in the superficial soft tissues. Small stab incision was made. A tunneler device was utilized and the catheter was pulled through to the access site. Serial dilatation of the access site was then performed and a peel-away sheath was positioned. Subsequently, the catheter was advanced through the peel-away sheath which was removed. Imaging demonstrates appropriate positioning of the catheter. Both lumens were assessed demonstrating excellent pull of blood and flush well. Both lumens were then flushed with the appropriate volume of heparin. The puncture site was closed with Dermabond. The catheter was then secured to the skin with 2-0 nylon suture and a sterile bandage was applied The patient tolerated well with no immediate complications. There was less than 5ml blood loss. Air Kerma: 2mGy Procedure Note Gladis Mcgovern MD - 05/28/2025 INDICATIONS: HD catheter HISTORY: Patient is an 79-year-old female with history of acute kidneyinjury TECHNIQUE: Patient was brought to angiography suite placed in a supineposition. Ultrasound imaging demonstrates venous patency. The patient'sright neck was assessed and subsequently prepped and draped in the usualand sterile fashion. Maximum sterile barrier technique was used. Atimeout was performed. 2% lidocaine was used for skin anesthesia.Moderate intravenous sedation was initiated and maintained forapproximately 30 minutes while the patient was independently monitored bythe radiology nurse under the supervision of the interventionalradiologist. A total of 0.5 mg of Versed and 25 mcg of fentanyladministered during the procedure. Under continuous ultrasound guidance, a micropuncture needle was advancedinto the vein. There was dark venous return, a 0.018 wire was advancedcentrally. A 3-5 sheath dilator was then advanced over the wire. Theinner dilator and wire were removed and an 0.035 wire was advancedcentrally. Attention was then turned to the tunnel. Additional LIDOCAINEwith EPINEPHRINE was injected in the superficial soft tissues. Small stabincision was made. A tunneler device was utilized and the catheter waspulled through to the access site. Serial dilatation of the access sitewas then performed and a peel-away sheath was positioned. Subsequently,the catheter was advanced through the peel-away sheath which was removed.Imaging demonstrates appropriate positioning of the catheter. Both lumenswere assessed demonstrating excellent pull of blood and flush well. Bothlumens were then flushed with the appropriate volume of heparin. Thepuncture site was closed with Dermabond. The catheter was then secured to the skin with 2-0 nylon suture and a sterile bandagewas applied The patient tolerated well with no immediate complications. There wasless than 5ml blood loss. Air Kerma: 2mGy IMPRESSION: Right internal jugular vein HD catheter placement. 23 cm tip to cuffcatheter utilized. Catheter is available for immediate use. -------- FINAL REPORT -------- Dictated By: Sharon Hassan Dictated Date: 05/28/2025 08:29 ET Assigned Physician: Gladis Mcgovern Reviewed and Electronically Signed By: Gladis Mcgovern Signed Date: 05/28/2025 15:05 ET Workstation ID: [id number] Transcribed By: Self Edit Transcribed Date: 05/28/2025 08:30 ET Resident/PA/DEPARTMENT [employer]: Sharon Hassan us Amarjit Ayala DO IMG IR PROCEDURES Final Resu lt * (ABNORMAL) Calcium, ionized (05/27/2025 1:59 PM EDT) Calcium Ionized 4.19(L) 4.50 - 5.30 mg/dL 05/27/2025 2:21 PM EDT [facility] Blood Venous blood specimen / Unknown Venipuncture / Unknown 05/27/2025 1:59 PM EDT 05/27/2025 2:14 PM EDT us Charlotte Camara MD LAB BLOOD ORDERABLES Final Re sult Performing Organization Address [facility]/ZIP Co de Phone Number [facility] [address] [place] [address], [place] [phone] * POCT Glucose, blood (05/27/2025 11:14 AM EDT) Glucose POCT 98 70 - 100 mg/dL 05/27/2025 11:15 AM EDT [facility] Blood Capillary blood specimen / Unknown 05/27/2025 11:14 AM EDT 05/27/2025 11:25 AM EDT us Charlotte Camara MD LAB POINT OF CARE TE ST DOCKED DEVICE UNSOLICITED RESULTS Final Result Performing Organization Address [facility]/ZIP Co de Phone Number [facility] [address] [place] [address], [place] [phone] * (ABNORMAL) POCT Glucose, blood (05/27/2025 8:00 AM EDT) Glucose POCT 108(H) 70 - 100 mg/dL 05/27/2025 8:00 AM EDT [facility] Blood Capillary blood specimen / Unknown 05/27/2025 8:00 AM EDT 05/27/2025 8:03 AM EDT us Charlotte Camara MD LAB POINT OF CARE TE ST DOCKED DEVICE UNSOLICITED RESULTS Final Result Performing Organization Address City/[facility]/ZIP Co de Phone Number [facility] [address] [place] [address], [place] [phone] * (ABNORMAL) CBC auto differential (05/27/2025 4:17 AM EDT) [facility] WBC 10.2 4.8 - 10.8 K/mcL LAB HEMETOLOGY METHOD 05/27/2025 4:32 AM [facility] RBC 3.20(L) 3.80 - 4.80 M/mcL LAB HEMETOLOGY METHOD 05/27/2025 4:32 AM [facility] Hemoglobin 8.4(L) 11.5 - 16.0 g/dL LAB HEMETOLOGY METHOD 05/27/2025 4:32 AM [facility] Hematocrit 27.8(L) 35.0 - 47.0 % LAB HEMETOLOGY METHOD 05/27/2025 4:32 AM [facility] MCV 86.9 79.0 - 98.0 FL LAB HEMETOLOGY METHOD 05/27/2025 4:32 AM [facility] MCH 26.3(L) 27.0 - 32.0 pcg LAB HEMETOLOGY METHOD 05/27/2025 4:32 AM [facility] MCHC 30.2(L) 32.0 - 37.0 g/dL LAB HEMETOLOGY METHOD 05/27/2025 4:32 AM [facility] RDW 20.1(H) 11.0 - 15.0 % LAB HEMETOLOGY METHOD 05/27/2025 4:32 AM [facility] Platelets 252 130 - 400 K/mcL LAB HEMETOLOGY METHOD 05/27/2025 4:32 AM [facility] MPV 10.4 7.0 - 11.0 FL LAB HEMETOLOGY METHOD 05/27/2025 4:32 AM [facility] NRBC 0.5 <1.0 % LAB HEMETOLOGY METHOD 05/27/2025 4:32 AM [facility] NRBC Absolute 0.05 <0.10 K/mcL LAB HEMETOLOGY METHOD 05/27/2025 4:32 AM [facility] Neutrophils Relative 68.3 % LAB HEMETOLOGY METHOD 05/27/2025 4:32 AM [facility] Lymphocytes Relative 15.5 % LAB HEMETOLOGY METHOD 05/27/2025 4:32 AM [facility] Monocytes Relative 12.6 % LAB HEMETOLOGY METHOD 05/27/2025 4:32 AM [facility] Eosinophils Relative 2.2 % LAB HEMETOLOGY METHOD 05/27/2025 4:32 AM [facility] Basophils Relative 0.3 % LAB HEMETOLOGY METHOD 05/27/2025 4:32 AM [facility] Immature Granulocytes Relative 1.1 % LAB HEMETOLOGY METHOD 05/27/2025 4:32 AM [facility] Neutrophils Absolute 6.98 1.50 - 7.00 K/mcL LAB HEMETOLOGY METHOD 05/27/2025 4:32 AM [facility] Lymphocytes Absolute 1.58 1.00 - 5.00 K/mcL LAB HEMETOLOGY METHOD 05/27/2025 4:32 AM [facility] Monocytes Absolute 1.29(H) 0.20 - 1.00 K/mcL LAB HEMETOLOGY METHOD 05/27/2025 4:32 AM [facility] Eosinophils Absolute 0.22 0.00 - 0.50 K/mcL LAB HEMETOLOGY METHOD 05/27/2025 4:32 AM [facility] Basophils Absolute 0.03 0.00 - 0.20 K/mcL LAB HEMETOLOGY METHOD 05/27/2025 4:32 AM [facility] Immature Granulocytes Absolute 0.11(H) 0.00 - 0.03 K/mcL LAB HEMETOLOGY METHOD 05/27/2025 4:32 AM [facility] Blood Blood sample taken from central line / Unknown Existing Catheter / Unknown 05/27/2025 4:17 AM EDT 05/27/2025 4:27 AM EDT us Charlotte Camara MD LAB BLOOD ORDERABLES Final Re sult [facility] [address] [place] [address], [place] [phone] * (ABNORMAL) Comprehensive metabolic panel (05/27/2025 4:17 AM EDT) Sodium 137 133 - 145 mmol/L LAB CHEMISTRY METHOD 05/27/2025 5:41 AM [facility] Potassium 3.6 3.5 - 5.5 mmol/L LAB CHEMISTRY METHOD 05/27/2025 5:41 AM [facility] Chloride 101 96 - 110 mmol/L LAB CHEMISTRY METHOD 05/27/2025 5:41 AM [facility] CO2 26 21 - 32 mmol/L LAB CHEMISTRY METHOD 05/27/2025 5:41 AM [facility] Anion Gap 10 3 - 11 LAB CHEMISTRY METHOD 05/27/2025 5:41 AM [facility] Glucose 130(H) 70 - 100 mg/dL LAB CHEMISTRY METHOD 05/27/2025 5:41 AM [facility] BUN 57(H) 5 - 25 mg/dL LAB CHEMISTRY METHOD 05/27/2025 5:41 AM [facility] Creatinine 4.91(H) 0.50 - 1.10 mg/dL LAB CHEMISTRY METHOD 05/27/2025 5:41 AM [facility] eGFR 8(L) >=60 mL/min/1. 73m2 LAB CHEMISTRY METHOD 05/27/2025 5:41 AM [facility] Comment:Calculation based on the Chronic Kidney Disease Epidemiology Collaboration (CKD-EPI) equation refit without adjustment for race. BUN/Creatinine Ratio 11.6 LAB CHEMISTRY METHOD 05/27/2025 5:41 AM [facility] Calcium 8.2(L) 8.5 - 10.5 mg/dL LAB CHEMISTRY METHOD 05/27/2025 5:41 AM [facility] AST (SGOT) 58(H) 10 - 42 unit/L LAB CHEMISTRY METHOD 05/27/2025 5:41 AM [facility] ALT (SGPT) 21 10 - 60 unit/L LAB CHEMISTRY METHOD 05/27/2025 5:41 AM [facility] Alkaline Phosphatase 219(H) 42 - 121 unit/L LAB CHEMISTRY METHOD 05/27/2025 5:41 AM [facility] Total Protein 5.6(L) 6.0 - 8.0 g/dL LAB CHEMISTRY METHOD 05/27/2025 5:41 AM [facility] Albumin 1.7(L) 3.2 - 5.0 g/dL LAB CHEMISTRY METHOD 05/27/2025 5:41 AM [facility] Total Bilirubin 0.3 0.0 - 1.4 mg/dL LAB CHEMISTRY METHOD 05/27/2025 5:41 AM [facility] Blood Blood sample taken from central line / Unknown Existing Catheter / Unknown 05/27/2025 4:17 AM EDT 05/27/2025 4:27 AM EDT us Charlotte Camara MD LAB BLOOD ORDERABLES Final Re sult [facility] [address] [place] [address], * (ABNORMAL) Venous blood gas (05/27/2025 4:17 AM EDT) pH, Mukesh 7.32 7.32 - 7.42 pH 05/27/2025 4:34 AM EDT [facility] pCO2, Mukesh 52(H) 41 - 51 mmHg 05/27/2025 4:34 AM EDT [facility] pO2, Mukesh 32 25 - 40 mmHg 05/27/2025 4:34 AM EDT [facility] HCO3, Venous 24.4 22.0 - 26.0 mmol/L 05/27/2025 4:34 AM EDT [facility] O2 Sat, Mukesh 57.5 % 05/27/2025 4:34 AM EDT [facility] Base Excess, Mukesh 0.3 -2.0 - 2.0 mmol/L 05/27/2025 4:34 AM EDT [facility] Blood Venous blood specimen / Unknown Existing Catheter / Unknown 05/27/2025 4:17 AM EDT 05/27/2025 4:27 AM EDT us Charlotte Camara MD LAB BLOOD ORDERABLES Final Re sult Performing Organization Address City/[facility]/ZIP Co de Phone Number [facility] [address] [place] [address], * Phosphorus (05/27/2025 4:17 AM EDT) Pathologist [facility] Phosphorus 3.2 2.5 - 4.5 mg/dL LAB CHEMISTRY METHOD 05/27/2025 5:41 AM EDT [facility] Blood Blood sample taken from central line / Unknown Existing Catheter / Unknown 05/27/2025 4:17 AM EDT 05/27/2025 4:27 AM EDT us Charlotte Camara MD LAB BLOOD ORDERABLES Final Re sult [facility] [address] [place] [address], [place] [phone] * Magnesium (05/27/2025 4:17 AM EDT) [facility] Magnesium 2.2 1.9 - 2.6 mg/dL LAB CHEMISTRY METHOD 05/27/2025 5:41 AM EDT [facility] Blood Blood sample taken from central line / Unknown Existing Catheter / Unknown 05/27/2025 4:17 AM EDT 05/27/2025 4:27 AM EDT us Charlotte Camara MD LAB BLOOD ORDERABLES Final Re sult Performing Organization Address City/[facility]/ZIP Co de Phone Number [facility] [address] [place] [address], [place] [phone] * (ABNORMAL) Calcium, ionized (05/27/2025 4:17 AM EDT) [facility] Calcium Ionized 4.08(L) 4.50 - 5.30 mg/dL 05/27/2025 4:37 AM EDT [facility] Blood Blood sample taken from central line / Unknown Existing Catheter / Unknown 05/27/2025 4:17 AM EDT 05/27/2025 4:27 AM EDT us Charlotte Camara MD LAB BLOOD ORDERABLES Final Re sult [facility] [address] [place] [address], [place] [phone] * (ABNORMAL) POCT Glucose, blood (05/27/2025 12:13 AM EDT) [facility] Glucose POCT 158(H) 70 - 100 mg/dL 05/27/2025 12:14 AM EDT [facility] Blood Capillary blood specimen / Unknown 05/27/2025 12:13 AM EDT 05/27/2025 12:15 AM EDT us Charlotte Camara MD LAB POINT OF CARE TE ST DOCKED DEVICE UNSOLICITED RESULTS Final Result Performing Organization Address [facility]/ZIP Co de Phone Number [facility] [address] [place] [address], [place] [phone] * (ABNORMAL) Calcium, ionized (05/26/2025 7:30 PM EDT) [facility] Calcium Ionized 3.97(L) 4.50 - 5.30 mg/dL 05/26/2025 7:49 PM EDT [facility] Blood Blood sample taken from central line / Unknown Existing Catheter / Unknown 05/26/2025 7:30 PM EDT 05/26/2025 7:42 PM EDT us Salina Crenshaw NP LAB BLOOD ORDERABLES Final Resul t Performing Organization Address [facility] Co de Phone Number [facility] [address] [place] [address], [place] [phone] * Phosphorus (05/26/2025 7:30 PM EDT) [facility] Phosphorus 3.3 2.5 - 4.5 mg/dL LAB CHEMISTRY METHOD 05/26/2025 8:52 PM EDT [facility] Blood Blood sample taken from central line / Unknown Existing Catheter / Unknown 05/26/2025 7:30 PM EDT 05/26/2025 7:42 PM EDT us Salina Crenshaw NP LAB BLOOD ORDERABLES Final Resul t Performing Organization Address [facility]/ZIP Co de Phone Number [facility] [address] [place] [address], [place] [phone] * Magnesium (05/26/2025 7:30 PM EDT) [facility] Magnesium 2.2 1.9 - 2.6 mg/dL LAB CHEMISTRY METHOD 05/26/2025 8:48 PM EDT [facility] Blood Blood sample taken from central line / Unknown Existing Catheter / Unknown 05/26/2025 7:30 PM EDT 05/26/2025 7:42 PM EDT Salina Crenshaw NP LAB BLOOD ORDERABLES Final Resul t [facility] [address] [place] [address], [place] [phone] * (ABNORMAL) Basic metabolic panel (05/26/2025 7:30 PM EDT) [facility] Sodium 138 133 - 145 mmol/L LAB CHEMISTRY METHOD 05/26/2025 8:59 PM [facility] Potassium 3.7 3.5 - 5.5 mmol/L LAB CHEMISTRY METHOD 05/26/2025 8:59 PM [facility] Chloride 101 96 - 110 mmol/L LAB CHEMISTRY METHOD 05/26/2025 8:59 PM [facility] CO2 23 21 - 32 mmol/L LAB CHEMISTRY METHOD 05/26/2025 8:59 PM [facility] Anion Gap 14(H) 3 - 11 LAB CHEMISTRY METHOD 05/26/2025 8:59 PM [facility] Glucose 197(H) 70 - 100 mg/dL LAB CHEMISTRY METHOD 05/26/2025 8:59 PM [facility] BUN 58(H) 5 - 25 mg/dL LAB CHEMISTRY METHOD 05/26/2025 8:59 PM [facility] Creatinine 4.86(H) 0.50 - 1.10 mg/dL LAB CHEMISTRY METHOD 05/26/2025 8:59 PM [facility] eGFR 9(L) >=60 mL/min/1. 73m2 LAB CHEMISTRY METHOD 05/26/2025 8:59 PM EDT [facility] Comment:Calculation based on the Chronic Kidney Disease Epidemiology Collaboration (CKD-EPI) equation refit without adjustment for race. BUN/Creatinine Ratio 11.9 LAB CHEMISTRY METHOD 05/26/2025 8:59 PM EDT [facility] Calcium 7.8(L) 8.5 - 10.5 mg/dL LAB CHEMISTRY METHOD 05/26/2025 8:59 PM EDT [facility] Blood Blood sample taken from central line / Unknown Existing Catheter / Unknown 05/26/2025 7:30 PM EDT 05/26/2025 7:42 PM EDT Salina Crenshaw NP LAB BLOOD ORDERABLES Final Resul t [facility] [address] [place] [address], [place] [phone] * (ABNORMAL) POCT Glucose, blood (05/26/2025 6:03 PM EDT) Glucose POCT 156(H) 70 - 100 mg/dL 05/26/2025 6:04 PM EDT [facility] Blood Capillary blood specimen / Unknown 05/26/2025 6:03 PM EDT 05/26/2025 6:06 PM EDT Charlotte Camara MD LAB POINT OF CARE TE ST DOCKED DEVICE UNSOLICITED RESULTS Final Result [facility] [address] [place] [address], [place] [phone] * (ABNORMAL) POCT Glucose, blood (05/26/2025 2:50 PM EDT) Glucose POCT 142(H) 70 - 100 mg/dL 05/26/2025 7:25 PM EDT [facility] Blood Capillary blood specimen / Unknown 05/26/2025 2:50 PM EDT 05/26/2025 7:26 PM EDT us Charlotte Camara MD LAB POINT OF CARE TE ST DOCKED DEVICE UNSOLICITED RESULTS Final Result [facility] ([facility]) [facility] [address] [place] [address], [place] [phone] * (ABNORMAL) TRANSTHORACIC ECHOCARDIOGRAM (TTE) COMPLETE (05/26/2025 1:11 PM EDT) LV EDV (A2C) 44 mL CV PACS LV EDV (A4C) 43 mL CV PACS LV Diastolic Volume (BP) 44(A) 46 - 106 mL CV PACS LV ESV (A4C) 30 mL CV PACS IVSD 0.8 0.6 - 0.9 cm CV PACS LVIDD 4.7 3.8 - 5.2 cm CV PACS LVIDS 3.8(A) 2.2 - 3.5 cm CV PACS LVOT Diameter 2.0 cm CV PACS LVOT Mean Miguel 0.5 m/s CV PACS LVOT Mean Grad 1 mmHg CV PACS LVOT Mean Grad 1 mmHg CV PACS LVOT Peak VTI 12.8 cm CV PACS LVOT Peak Miguel 0.8 m/s CV PACS LVOT Peak Gradient 2 mmHg CV PACS LVPWD 0.9 0.6 - 0.9 cm CV PACS MV E' Tissue Velocity Lateral 14 cm/s CV PACS MV E' Tissue Velocity Septal 6 cm/s CV PACS Ejection Fraction (A4C) 31 % CV PACS LVOT Area 3.1 cm2 CV PACS LVOT Stroke Volume 40 mL CV PACS Left Atrium Minor Hampton 5.9 cm CV PACS Left Atrium Major Hampton 5.8 cm CV PACS LA Area Sys (A2C) 23 cm2 CV PACS LA Area Sys (A4C) 25 cm2 CV PACS LA Volume (BP) 83 mL CV PACS LA Size 4.6 cm CV PACS RA Area 24.4 cm2 CV PACS RA 2D Volume 81 mL CV PACS AV Mean Gradient 3 mmHg CV PACS Ao VTI 19.1 cm CV PACS AV Peak Imguel 1.1 m/s CV PACS AV Peak Gradient 5 mmHg CV PACS AV Area Continuity Equation 2.1 cm2 CV PACS AV Area Peak Velocity 2.2 cm2 CV PACS Aortic Arch 2.3 cm CV PACS Ascending Aorta 3.4 cm CV PACS Aortic Sinus Valsalva 3.1 cm CV PACS IVC Proximal 1.7 cm CV PACS MV Deceleration Tillman 9.0 m/s2 CV PACS E Wave Deceleration Time 147 119 - 242 ms CV PACS MV PHT 43 ms CV PACS MV Peak E Miguel 1.24 m/s CV PACS MV Mean Gradient 2 mmHg CV PACS MV Mean Gradient 2 mmHg CV PACS MV Mean Gradient 2 mmHg CV PACS MV Mean Gradient 2 mmHg CV PACS MV VTI 21.2 cm CV PACS Mitral Valve Max Velocity 1.2 m/s CV PACS MV Peak Gradient 6 mmHg CV PACS MV Area PHT 5.1 cm2 CV PACS MV Area Continuity Equation 1.9 cm2 CV PACS PV Acceleration Time 88 ms CV PACS PV Acceleration Time 120 ms CV PACS PV Acceleration Time 104 ms CV PACS PV Mean Gradient 1 mmHg CV PACS PV VTI 11.5 cm CV PACS PV Peak Velocity 0.8 m/s CV PACS PV Peak Gradient 2 mmHg CV PACS RV Diastolic Basal Dimension 4.6(A) 2.5 - 4.1 cm CV PACS RV S' 10 cm/s CV PACS TAPSE 13 mm CV PACS TR Peak Velocity 3.40 m/s CV PACS TR Peak Gradient 62 mmHg CV PACS LV ESV Index (A4C) 18 mL/m2 CV PACS LV EDV Index (A4C) 26 mL/m2 CV PACS E/E' Ratio Septal 21 CV PACS E/E' Ratio Averaged 15 CV PACS LVOT Stroke Index 24 mL/m2 CV PACS LA Dimension Index 2D 2.7 cm/m2 CV PACS Relative Wall Thickness ratio 0.38 CV PACS LVOT:AV VTI Index 0.67 CV PACS FS 19 % CV PACS LV Mass 2D 132 g CV PACS Ascending Aorta Index 2.02 cm/m2 CV PACS MV VTI:LVOT VTI ratio 1.7 CV PACS LVOT flow 157 mL/s CV PACS RA 2D Volume Index 48 mL/m2 CV PACS PAMELA Index (VTI) 1.25 cm2/m2 CV PACS PAMELA Index (Pk Miguel) 1.31 cm2/m2 CV PACS LVIDD Index 2.80 cm/m2 CV PACS LVIDS Index 2.26 cm/m2 CV PACS AV Velocity Ratio 0.73 CV PACS E/E' Ratio Lateral 9 CV PACS LV Diastolic Volume Index (BP) 26 mL/m2 CV PACS LA Volume Index (BP) 49 mL/m2 CV PACS LV Mass Index 2D 79 g/m2 CV PACS LV EDV Index (A2C) 26 mL/m2 CV PACS BSA 1.71 m2 CV PACS Right Ventricular Peak Systolic Pressure 49 mmHg CV PACS Est. RA Pressure 3 mmHg CV PACS Anatomical Region Laterality Modality Ultrasound Narrative 05/27/2025 9:01 AM EDT Left ventricle cavity size is normal. Left ventricular systolic function is moderately decreased with an ejection fraction of 30-35%. Moderate LV global hypokinesis is present. Left ventricle wall thickness is normal. Abnormal left ventricular septal motion. Right ventricle cavity is mildly enlarged. Right ventricular systolic function is mildly reduced. Pulmonary artery systolic pressure is ~49 mmHg. The atria are dilated. Right atrial pressure is ~3 mmHg. Mild to moderate mitral regurgitation. Tricuspid valve demonstrates moderate regurgitation. See remainder of the report for additional findings. Left Ventricle Left ventricle cavity size is normal. Wall thickness is normal. Systolic function is moderately decreased with an ejection fraction of 30-35%. Moderate global LV hypokinesis is present. Indeterminate diastolic function. There is abnormal septal motion. Right Ventricle Right ventricle cavity is mildly dilated. Systolic function is reduced. Left Atrium Left atrium cavity is severely dilated. Right Atrium Right atrium cavity is severely dilated. IVC/SVC Inferior vena cava structure is normal. RA pressures is estimated to be 3 mmHg (IVC diameter <21 mm and decreases >50% during inspiration). Mitral Valve The leaflets are mildly thickened. There is annular calcification. There is mild-moderate regurgitation. There is no evidence of mitral valve stenosis. Tricuspid Valve Tricuspid valve structure is normal. There is moderate regurgitation. The right ventricular systolic pressure is elevated. Aortic Valve The aortic valve is trileaflet. The leaflets are mildly thickened. There is no regurgitation or stenosis. Pulmonic Valve There is trace pulmonic valve regurgitation. Ascending Aorta The aorta appears normal in size. Pericardium Pericardium appears normal. There is no pericardial effusion. Study Details Overall the study quality was adequate. us Amarjit Ayala DO CV ECHO PROCEDURES Final Res ult * (ABNORMAL) Calcium, ionized (05/26/2025 11:41 AM EDT) Calcium Ionized 4.16(L) 4.50 - 5.30 mg/dL 05/26/2025 12:13 PM EDT [facility] Blood Blood sample taken from central line / Unknown Existing Catheter / Unknown 05/26/2025 11:41 AM EDT 05/26/2025 12:08 PM EDT us Salina Crenshaw [employer]MENT [employer] LAB BLOOD ORDERABLES Final Resul t Performing Organization Address [facility]/ZIP Co de Phone Number [facility] [address] [place] [address], * Phosphorus (05/26/2025 11:41 AM EDT) [facility] Phosphorus 3.2 2.5 - 4.5 mg/dL LAB CHEMISTRY METHOD 05/26/2025 12:43 PM EDT [facility] Blood Blood sample taken from central line / Unknown Existing Catheter / Unknown 05/26/2025 11:41 AM EDT 05/26/2025 12:08 PM EDT us Salina Crenshaw NP LAB BLOOD ORDERABLES Final Resul t [facility] [address] [place] [address], * Magnesium (05/26/2025 11:41 AM EDT) Pathologist [facility] Magnesium 2.2 1.9 - 2.6 mg/dL LAB CHEMISTRY METHOD 05/26/2025 12:43 PM EDT [facility] Blood Blood sample taken from central line / Unknown Existing Catheter / Unknown 05/26/2025 11:41 AM EDT 05/26/2025 12:08 PM EDT us Salina Crenshaw NP LAB BLOOD ORDERABLES Final Resul t [facility] [address] [place] [address], * (ABNORMAL) Basic metabolic panel (05/26/2025 11:41 AM EDT) Sodium 139 133 - 145 mmol/L LAB CHEMISTRY METHOD 05/26/2025 12:46 PM [facility] Potassium 3.7 3.5 - 5.5 mmol/L LAB CHEMISTRY METHOD 05/26/2025 12:46 PM [facility] Chloride 104 96 - 110 mmol/L LAB CHEMISTRY METHOD 05/26/2025 12:46 PM [facility] CO2 23 21 - 32 mmol/L LAB CHEMISTRY METHOD 05/26/2025 12:46 PM [facility] Anion Gap 12(H) 3 - 11 LAB CHEMISTRY METHOD 05/26/2025 12:46 PM [facility] Glucose 144(H) 70 - 100 mg/dL LAB CHEMISTRY METHOD 05/26/2025 12:46 PM [facility] BUN 57(H) 5 - 25 mg/dL LAB CHEMISTRY METHOD 05/26/2025 12:46 PM [facility] Creatinine 4.83(H) 0.50 - 1.10 mg/dL LAB CHEMISTRY METHOD 05/26/2025 12:46 PM [facility] eGFR 9(L) >=60 mL/min/1. 73m2 LAB CHEMISTRY METHOD 05/26/2025 12:46 PM [facility] Comment:Calculation based on the Chronic Kidney Disease Epidemiology Collaboration (CKD-EPI) equation refit without adjustment for race. BUN/Creatinine Ratio 11.8 LAB CHEMISTRY METHOD 05/26/2025 12:46 PM EDT [facility] Calcium 8.0(L) 8.5 - 10.5 mg/dL LAB CHEMISTRY METHOD 05/26/2025 12:46 PM EDT [facility] Blood Blood sample taken from central line / Unknown Existing Catheter / Unknown 05/26/2025 11:41 AM EDT 05/26/2025 12:08 PM EDT us Salina Crenshaw NP LAB BLOOD ORDERABLES Final Resul t [facility] [address] [place] [address], [place] [phone] * POCT Glucose, blood (05/26/2025 9:54 AM EDT) Glucose POCT 100 70 - 100 mg/dL 05/26/2025 9:55 AM EDT [facility] Blood Capillary blood specimen / Unknown 05/26/2025 9:54 AM EDT 05/26/2025 9:56 AM EDT us Charlotte Camara MD LAB POINT OF CARE TE ST DOCKED DEVICE UNSOLICITED RESULTS Final Result [facility] [address] [place] [address], [place] [phone] * POCT Glucose, blood (05/26/2025 8:22 AM EDT) Glucose POCT 95 70 - 100 mg/dL 05/26/2025 8:22 AM EDT [facility] Blood Capillary blood specimen / Unknown 05/26/2025 8:22 AM EDT 05/26/2025 8:23 AM EDT us Charlotte Camara MD LAB POINT OF CARE TE ST DOCKED DEVICE UNSOLICITED RESULTS Final Result Performing Organization Address [facility]/ZIP Co de Phone Number [facility] [address] [place] [address], [place] [phone] * (ABNORMAL) Venous blood gas (05/26/2025 6:14 AM EDT) pH, Mukesh 7.30(L) 7.32 - 7.42 pH 05/26/2025 6:28 AM EDT [facility] pCO2, Mukesh 46 41 - 51 mmHg 05/26/2025 6:28 AM EDT [facility] pO2, Mukesh 34 25 - 40 mmHg 05/26/2025 6:28 AM EDT [facility] HCO3, Venous 21.4(L) 22.0 - 26.0 mmol/L 05/26/2025 6:28 AM EDT [facility] O2 Sat, Mukesh 62.6 % 05/26/2025 6:28 AM EDT [facility] Base Excess, Mukesh -3.7(L) -2.0 - 2.0 mmol/L 05/26/2025 6:28 AM EDT [facility] Blood Venous blood specimen / Unknown Existing Catheter / Unknown 05/26/2025 6:14 AM EDT 05/26/2025 6:24 AM EDT us Salina Crenshaw NP LAB BLOOD ORDERABLES Final Resul t [facility] [address] [place] [address], [place] [phone] * Heparin and low molecular weight anti Xa level (05/26/2025 5:33 AM EDT) Heparin Anti-Xa 0.45 0.30 - 0.70 I Unit/mL LAB COAGULATION METHOD 05/26/2025 6:13 AM EDT [facility] Blood Blood sample taken from central line / Unknown Existing Catheter / Unknown 05/26/2025 5:33 AM EDT 05/26/2025 5:57 AM EDT Narrative [facility] - 05/26/2025 6:13 AM EDT Therapeutic range listed is for Unfractionated Heparin. LMW Heparin therapeutic range: 0.50-1.20 IU/mL us Charlotte Camara MD LAB BLOOD ORDERABLES Final Re sult [facility] [address] [place] [address], * (ABNORMAL) Comprehensive metabolic panel (05/26/2025 5:33 AM EDT) Sodium 140 133 - 145 mmol/L LAB CHEMISTRY METHOD 05/26/2025 6:36 AM [facility] Potassium 4.0 3.5 - 5.5 mmol/L LAB CHEMISTRY METHOD 05/26/2025 6:36 AM [facility] Chloride 106 96 - 110 mmol/L LAB CHEMISTRY METHOD 05/26/2025 6:36 AM [facility] CO2 23 21 - 32 mmol/L LAB CHEMISTRY METHOD 05/26/2025 6:36 AM [facility] Anion Gap 11 3 - 11 LAB CHEMISTRY METHOD 05/26/2025 6:36 AM [facility] Glucose 104(H) 70 - 100 mg/dL LAB CHEMISTRY METHOD 05/26/2025 6:36 AM [facility] BUN 54(H) 5 - 25 mg/dL LAB CHEMISTRY METHOD 05/26/2025 6:36 AM [facility] Creatinine 4.80(H) 0.50 - 1.10 mg/dL LAB CHEMISTRY METHOD 05/26/2025 6:36 AM [facility] eGFR 9(L) >=60 mL/min/1. 73m2 LAB CHEMISTRY METHOD 05/26/2025 6:36 AM [facility] Comment:Calculation based on the Chronic Kidney Disease Epidemiology Collaboration (CKD-EPI) equation refit without adjustment for race. BUN/Creatinine Ratio 11.3 LAB CHEMISTRY METHOD 05/26/2025 6:36 AM [facility] Calcium 8.2(L) 8.5 - 10.5 mg/dL LAB CHEMISTRY METHOD 05/26/2025 6:36 AM [facility] AST (SGOT) 68(H) 10 - 42 unit/L LAB CHEMISTRY METHOD 05/26/2025 6:36 AM [facility] ALT (SGPT) 22 10 - 60 unit/L LAB CHEMISTRY METHOD 05/26/2025 6:36 AM [facility] Alkaline Phosphatase 219(H) 42 - 121 unit/L LAB CHEMISTRY METHOD 05/26/2025 6:36 AM [facility] Total Protein 5.8(L) 6.0 - 8.0 g/dL LAB CHEMISTRY METHOD 05/26/2025 6:36 AM [facility] Albumin 1.8(L) 3.2 - 5.0 g/dL LAB CHEMISTRY METHOD 05/26/2025 6:36 AM [facility] Total Bilirubin 0.3 0.0 - 1.4 mg/dL LAB CHEMISTRY METHOD 05/26/2025 6:36 AM [facility] Blood Blood sample taken from central line / Unknown Existing Catheter / Unknown 05/26/2025 5:33 AM EDT 05/26/2025 5:57 AM EDT us Charlotte Camara MD LAB BLOOD ORDERABLES Final Re sult [facility] [address] [place] [address], [place] [phone] * Phosphorus (05/26/2025 5:33 AM EDT) [facility] Phosphorus 3.0 2.5 - 4.5 mg/dL LAB CHEMISTRY METHOD 05/26/2025 6:35 AM EDT [facility] Blood Blood sample taken from central line / Unknown Existing Catheter / Unknown 05/26/2025 5:33 AM EDT 05/26/2025 5:57 AM EDT us Charlotte Camara MD LAB BLOOD ORDERABLES Final Re sult [facility] [address] [place] [address], [place] [phone] * Magnesium (05/26/2025 5:33 AM EDT) [facility] Magnesium 2.3 1.9 - 2.6 mg/dL LAB CHEMISTRY METHOD 05/26/2025 6:35 AM EDT [facility] Blood Blood sample taken from central line / Unknown Existing Catheter / Unknown 05/26/2025 5:33 AM EDT 05/26/2025 5:57 AM EDT us Charlotte Camara MD LAB BLOOD ORDERABLES Final Re sult [facility] [address] [place] [address], [place] [phone] * (ABNORMAL) CBC auto differential (05/26/2025 3:59 AM EDT) [facility] WBC 10.3 4.8 - 10.8 K/[facility] LAB HEMETOLOGY METHOD 05/26/2025 4:37 AM EDT [facility] RBC 3.30(L) 3.80 - 4.80 M/mcL LAB HEMETOLOGY METHOD 05/26/2025 4:37 AM [facility] Hemoglobin 8.5(L) 11.5 - 16.0 g/dL LAB HEMETOLOGY METHOD 05/26/2025 4:37 AM [facility] Hematocrit 28.9(L) 35.0 - 47.0 % LAB HEMETOLOGY METHOD 05/26/2025 4:37 AM [facility] MCV 88.7 79.0 - 98.0 FL LAB HEMETOLOGY METHOD 05/26/2025 4:37 AM [facility] MCH 26.1(L) 27.0 - 32.0 pcg LAB HEMETOLOGY METHOD 05/26/2025 4:37 AM [facility] MCHC 29.4(L) 32.0 - 37.0 g/dL LAB HEMETOLOGY METHOD 05/26/2025 4:37 AM [facility] RDW 19.9(H) 11.0 - 15.0 % LAB HEMETOLOGY METHOD 05/26/2025 4:37 AM [facility] Platelets 261 130 - 400 K/mcL LAB HEMETOLOGY METHOD 05/26/2025 4:37 AM [facility] MPV 11.0 7.0 - 11.0 FL LAB HEMETOLOGY METHOD 05/26/2025 4:37 AM [facility] NRBC 0.5 <1.0 % LAB HEMETOLOGY METHOD 05/26/2025 4:37 AM [facility] NRBC Absolute 0.05 <0.10 K/mcL LAB HEMETOLOGY METHOD 05/26/2025 4:37 AM [facility] Neutrophils Relative 76.5 % LAB HEMETOLOGY METHOD 05/26/2025 4:37 AM [facility] Lymphocytes Relative 12.1 % LAB HEMETOLOGY METHOD 05/26/2025 4:37 AM [facility] Monocytes Relative 8.4 % LAB HEMETOLOGY METHOD 05/26/2025 4:37 AM [facility] Eosinophils Relative 1.7 % LAB HEMETOLOGY METHOD 05/26/2025 4:37 AM [facility] Basophils Relative 0.3 % LAB HEMETOLOGY METHOD 05/26/2025 4:37 AM [facility] Immature Granulocytes Relative 1.0 % LAB HEMETOLOGY METHOD 05/26/2025 4:37 AM [facility] Neutrophils Absolute 7.88(H) 1.50 - 7.00 K/mcL LAB HEMETOLOGY METHOD 05/26/2025 4:37 AM [facility] Lymphocytes Absolute 1.25 1.00 - 5.00 K/mcL LAB HEMETOLOGY METHOD 05/26/2025 4:37 AM [facility] Monocytes Absolute 0.86 0.20 - 1.00 K/mcL LAB HEMETOLOGY METHOD 05/26/2025 4:37 AM [facility] Eosinophils Absolute 0.17 0.00 - 0.50 K/mcL LAB HEMETOLOGY METHOD 05/26/2025 4:37 AM [facility] Basophils Absolute 0.03 0.00 - 0.20 K/mcL LAB HEMETOLOGY METHOD 05/26/2025 4:37 AM [facility] Immature Granulocytes Absolute 0.10(H) 0.00 - 0.03 K/mcL LAB HEMETOLOGY METHOD 05/26/2025 4:37 AM [facility] Blood Blood sample taken from central line / Unknown Existing Catheter / Unknown 05/26/2025 3:59 AM EDT 05/26/2025 4:29 AM EDT us Charlotte Camara MD LAB BLOOD ORDERABLES Final Re sult [facility] [address] [place] [address], [place] [phone] * (ABNORMAL) Calcium, ionized (05/26/2025 3:59 AM EDT) Calcium Ionized 4.33(L) 4.50 - 5.30 mg/dL 05/26/2025 4:33 AM EDT [facility] Blood Blood sample taken from central line / Unknown Existing Catheter / Unknown 05/26/2025 3:59 AM EDT 05/26/2025 4:29 AM EDT Charlotte Camara MD LAB BLOOD ORDERABLES Final Re sult Performing Organization Address [facility]/ZIP Co de Phone Number [facility] [address] [place] [address], [place] [phone] * (ABNORMAL) Lactate (05/26/2025 3:59 AM EDT) Lactate 2.3(H) 0.4 - 2.0 mmol/L LAB CHEMISTRY METHOD 05/26/2025 4:55 AM EDT [facility] Blood Blood sample taken from central line / Unknown Existing Catheter / Unknown 05/26/2025 3:59 AM EDT 05/26/2025 4:28 AM EDT Charlotte Camara MD LAB BLOOD ORDERABLES Final Re sult [facility] [address] [place] [address], [place] [phone] * POCT Glucose, blood (05/26/2025 2:00 AM EDT) Glucose POCT 96 70 - 100 mg/dL 05/26/2025 2:02 AM EDT [facility] Blood Capillary blood specimen / Unknown 05/26/2025 2:00 AM EDT 05/26/2025 2:04 AM EDT Charlotte Camara MD LAB POINT OF CARE TE ST DOCKED DEVICE UNSOLICITED RESULTS Final Result Performing Organization Address [facility]/ZIP Co de Phone Number [facility] [address] [place] [address], [place] [phone] * (ABNORMAL) Calcium, ionized (05/25/2025 11:47 PM EDT) Calcium Ionized 4.05(L) 4.50 - 5.30 mg/dL 05/26/2025 12:15 AM EDT [facility] Blood Blood sample taken from central line / Unknown Existing Catheter / Unknown 05/25/2025 11:47 PM EDT 05/26/2025 12:01 AM EDT us Salina Crenshaw [employer] LAB BLOOD ORDERABLES Final Resul t Performing Organization Address [facility]/ZIP Co de Phone Number [facility] [address] [place] [address], [place] [phone] * Phosphorus (05/25/2025 11:47 PM EDT) Phosphorus 3.3 2.5 - 4.5 mg/dL LAB CHEMISTRY METHOD 05/26/2025 12:52 AM EDT [facility] Blood Blood sample taken from central line / Unknown Existing Catheter / Unknown 05/25/2025 11:47 PM EDT 05/26/2025 12:01 AM EDT us Salina Crenshaw [employer] LAB BLOOD ORDERABLES Final Resul t Performing Organization Address City/[facility]/ZIP Co de Phone Number [facility] [address] [place] [address], [place] [phone] * Magnesium (05/25/2025 11:47 PM EDT) Magnesium 2.2 1.9 - 2.6 mg/dL LAB CHEMISTRY METHOD 05/26/2025 12:52 AM [facility] Blood Blood sample taken from central line / Unknown Existing Catheter / Unknown 05/25/2025 11:47 PM EDT 05/26/2025 12:01 AM EDT us Salina Crenshaw NP LAB BLOOD ORDERABLES Final Resul t [facility] [address] [place] [address], * (ABNORMAL) Basic metabolic panel (05/25/2025 11:47 PM EDT) Pathologist [facility] Sodium 138 133 - 145 mmol/L LAB CHEMISTRY METHOD 05/26/2025 12:59 AM [facility] Potassium 3.8 3.5 - 5.5 mmol/L LAB CHEMISTRY METHOD 05/26/2025 12:59 AM [facility] Chloride 106 96 - 110 mmol/L LAB CHEMISTRY METHOD 05/26/2025 12:59 AM [facility] CO2 21 21 - 32 mmol/L LAB CHEMISTRY METHOD 05/26/2025 12:59 AM [facility] Anion Gap 11 3 - 11 LAB CHEMISTRY METHOD 05/26/2025 12:59 AM [facility] Glucose 119(H) 70 - 100 mg/dL LAB CHEMISTRY METHOD 05/26/2025 12:59 AM [facility] BUN 59(H) 5 - 25 mg/dL LAB CHEMISTRY METHOD 05/26/2025 12:59 AM [facility] Creatinine 4.92(H) 0.50 - 1.10 mg/dL LAB CHEMISTRY METHOD 05/26/2025 12:59 AM EDT [facility] eGFR 8(L) >=60 mL/min/1. 73m2 LAB CHEMISTRY METHOD 05/26/2025 12:59 AM EDT [facility] Comment:Calculation based on the Chronic Kidney Disease Epidemiology Collaboration (CKD-EPI) equation refit without adjustment for race. BUN/Creatinine Ratio 12.0 LAB CHEMISTRY METHOD 05/26/2025 12:59 AM EDT [facility] Calcium 7.9(L) 8.5 - 10.5 mg/dL LAB CHEMISTRY METHOD 05/26/2025 12:59 AM EDT [facility] Blood Blood sample taken from central line / Unknown Existing Catheter / Unknown 05/25/2025 11:47 PM EDT 05/26/2025 12:01 AM EDT us Salina Crenshaw NP LAB BLOOD ORDERABLES Final Resul t Performing Organization Address [facility]/ZIP Co de Phone Number [facility] [address] [place] [address], [place] [phone] * Heparin and low molecular weight anti Xa level (05/25/2025 10:53 PM EDT) Heparin Anti-Xa 0.49 0.30 - 0.70 I Unit/mL LAB COAGULATION METHOD 05/25/2025 11:25 PM EDT [facility] Blood Blood sample taken from central line / Unknown Existing Catheter / Unknown 05/25/2025 10:53 PM EDT 05/25/2025 11:05 PM EDT Narrative [facility] - 05/25/2025 11:25 PM EDT Therapeutic range listed is for Unfractionated Heparin. LMW Heparin therapeutic range: 0.50-1.20 IU/mL us Charlotte Camara MD LAB BLOOD ORDERABLES Final Re sult [facility] [address] [place] [address], [place] [phone] * POCT Glucose, blood (05/25/2025 7:21 PM EDT) Glucose POCT 90 70 - 100 mg/dL 05/25/2025 7:22 PM EDT [facility] POCT Comment RN Notified 05/25/2025 7:22 PM EDT [facility] Blood Capillary blood specimen / Unknown 05/25/2025 7:21 PM EDT 05/25/2025 7:23 PM EDT Charlotte Camara MD LAB POINT OF CARE TE ST DOCKED DEVICE UNSOLICITED RESULTS Final Result [facility] [address] [place] [address], [place] [phone] * (ABNORMAL) Comprehensive metabolic panel (05/25/2025 6:23 PM EDT) [facility] Sodium 139 133 - 145 mmol/L LAB CHEMISTRY METHOD 05/25/2025 7:33 PM [facility] Potassium 4.1 3.5 - 5.5 mmol/L LAB CHEMISTRY METHOD 05/25/2025 7:33 PM [facility] Chloride 107 96 - 110 mmol/L LAB CHEMISTRY METHOD 05/25/2025 7:33 PM [facility] CO2 21 21 - 32 mmol/L LAB CHEMISTRY METHOD 05/25/2025 7:33 PM [facility] Anion Gap 11 3 - 11 LAB CHEMISTRY METHOD 05/25/2025 7:33 PM [facility] Glucose 122(H) 70 - 100 mg/dL LAB CHEMISTRY METHOD 05/25/2025 7:33 PM [facility] BUN 60(H) 5 - 25 mg/dL LAB CHEMISTRY METHOD 05/25/2025 7:33 PM [facility] Creatinine 4.93(H) 0.50 - 1.10 mg/dL LAB CHEMISTRY METHOD 05/25/2025 7:33 PM [facility] eGFR 8(L) >=60 mL/min/1. 73m2 LAB CHEMISTRY METHOD 05/25/2025 7:33 PM [facility] Comment:Calculation based on the Chronic Kidney Disease Epidemiology Collaboration (CKD-EPI) equation refit without adjustment for race. BUN/Creatinine Ratio 12.2 LAB CHEMISTRY METHOD 05/25/2025 7:33 PM [facility] Calcium 7.8(L) 8.5 - 10.5 mg/dL LAB CHEMISTRY METHOD 05/25/2025 7:33 PM [facility] AST (SGOT) 76(H) 10 - 42 unit/L LAB CHEMISTRY METHOD 05/25/2025 7:33 PM [facility] ALT (SGPT) 23 10 - 60 unit/L LAB CHEMISTRY METHOD 05/25/2025 7:33 PM [facility] Alkaline Phosphatase 221(H) 42 - 121 unit/L LAB CHEMISTRY METHOD 05/25/2025 7:33 PM [facility] Total Protein 6.0 6.0 - 8.0 g/dL LAB CHEMISTRY METHOD 05/25/2025 7:33 PM [facility] Albumin 1.9(L) 3.2 - 5.0 g/dL LAB CHEMISTRY METHOD 05/25/2025 7:33 PM [facility] Total Bilirubin 0.3 0.0 - 1.4 mg/dL LAB CHEMISTRY METHOD 05/25/2025 7:33 PM [facility] Blood Blood sample taken from central line / Unknown Venipuncture / Unknown 05/25/2025 6:23 PM EDT 05/25/2025 6:43 PM EDT us Charlotte Camara MD LAB BLOOD ORDERABLES Final Re sult Performing Organization Address City/[facility]/ZIP Co de Phone Number [facility] [address] [place] [address], [place] [phone] * Digoxin level (05/25/2025 6:23 PM EDT) Digoxin Lvl 0.6 0.5 - 2.0 ng/mL LAB CHEMISTRY METHOD 05/25/2025 7:44 PM EDT [facility] Blood Blood sample taken from central line / Unknown Venipuncture / Unknown 05/25/2025 6:23 PM EDT 05/25/2025 6:43 PM EDT Charlotte Camara MD LAB BLOOD ORDERABLES Final Re sult Performing Organization Address [facility] Co de Phone Number [facility] [address] [place] [address], [place] [phone] * Magnesium (05/25/2025 6:23 PM EDT) Magnesium 2.4 1.9 - 2.6 mg/dL LAB CHEMISTRY METHOD 05/25/2025 7:33 PM EDT [facility] Blood Blood sample taken from central line / Unknown Venipuncture / Unknown 05/25/2025 6:23 PM EDT 05/25/2025 6:43 PM EDT Charlotte Camara MD LAB BLOOD ORDERABLES Final Re sult Performing Organization Address [facility]/ZIP Co de Phone Number [facility] [address] [place] [address], [place] [phone] * (ABNORMAL) Calcium, ionized (05/25/2025 6:23 PM EDT) Calcium Ionized 3.96(L) 4.50 - 5.30 mg/dL 05/25/2025 6:52 PM EDT [facility] Blood Blood sample taken from central line / Unknown Venipuncture / Unknown 05/25/2025 6:23 PM EDT 05/25/2025 6:43 PM EDT us Charlotte Camara MD LAB BLOOD ORDERABLES Final Re sult Performing Organization Address City/[facility]/ZIP Co de Phone Number [facility] [address] [place] [address], [place] [phone] * (ABNORMAL) POCT Glucose, blood (05/25/2025 3:52 PM EDT) [facility] Glucose POCT 131(H) 70 - 100 mg/dL 05/25/2025 3:53 PM EDT [facility] Blood Capillary blood specimen / Unknown 05/25/2025 3:52 PM EDT 05/25/2025 3:54 PM EDT us Charlotte Camara MD LAB POINT OF CARE TE ST DOCKED DEVICE UNSOLICITED RESULTS Final Result Performing Organization Address [facility] Co de Phone Number [facility] [address] [place] [address], [place] [phone] * Heparin and low molecular weight anti Xa level (05/25/2025 3:47 PM EDT) [facility] Heparin Anti-Xa 0.50 0.30 - 0.70 I Unit/mL LAB COAGULATION METHOD 05/25/2025 4:13 PM EDT [facility] Blood Blood sample taken from central line / Unknown Existing Catheter / Unknown 05/25/2025 3:47 PM EDT 05/25/2025 3:58 PM EDT Narrative [facility] - 05/25/2025 4:13 PM EDT Therapeutic range listed is for Unfractionated Heparin. LMW Heparin therapeutic range: 0.50-1.20 IU/mL us Charlotte Camara MD LAB BLOOD ORDERABLES Final Re sult Performing Organization Address City/[facility]/ZIP Co de Phone Number [facility] [address] [place] [address], [place] [phone] * (ABNORMAL) POCT Glucose, blood (05/25/2025 1:59 PM EDT) [facility] Glucose POCT 144(H) 70 - 100 mg/dL 05/25/2025 1:59 PM EDT [facility] Blood Capillary blood specimen / Unknown 05/25/2025 1:59 PM EDT 05/25/2025 2:01 PM EDT Charlotte Camara MD LAB POINT OF CARE TE ST DOCKED DEVICE UNSOLICITED RESULTS Final Result Performing Organization Address [facility]/ZIP Co de Phone Number [facility] [address] [place] [address], [place] [phone] * (ABNORMAL) Comprehensive metabolic panel (05/25/2025 1:50 PM EDT) [facility] Sodium 138 133 - 145 mmol/L LAB CHEMISTRY METHOD 05/25/2025 2:57 PM EDT [facility] Potassium 4.2 3.5 - 5.5 mmol/L LAB CHEMISTRY METHOD 05/25/2025 2:57 PM EDT [facility] Chloride 107 96 - 110 mmol/L LAB CHEMISTRY METHOD 05/25/2025 2:57 PM EDT [facility] CO2 20(L) 21 - 32 mmol/L LAB CHEMISTRY METHOD 05/25/2025 2:57 PM EDT [facility] Anion Gap 11 3 - 11 LAB CHEMISTRY METHOD 05/25/2025 2:57 PM EDT [facility] Glucose 155(H) 70 - 100 mg/dL LAB CHEMISTRY METHOD 05/25/2025 2:57 PM [facility] BUN 61(H) 5 - 25 mg/dL LAB CHEMISTRY METHOD 05/25/2025 2:57 PM [facility] Creatinine 5.00(H) 0.50 - 1.10 mg/dL LAB CHEMISTRY METHOD 05/25/2025 2:57 PM [facility] eGFR 8(L) >=60 mL/min/1. 73m2 LAB CHEMISTRY METHOD 05/25/2025 2:57 PM [facility] Comment:Calculation based on the Chronic Kidney Disease Epidemiology Collaboration (CKD-EPI) equation refit without adjustment for race. BUN/Creatinine Ratio 12.2 LAB CHEMISTRY METHOD 05/25/2025 2:57 PM [facility] Calcium 7.3(L) 8.5 - 10.5 mg/dL LAB CHEMISTRY METHOD 05/25/2025 2:57 PM [facility] AST (SGOT) 73(H) 10 - 42 unit/L LAB CHEMISTRY METHOD 05/25/2025 2:57 PM [facility] ALT (SGPT) 22 10 - 60 unit/L LAB CHEMISTRY METHOD 05/25/2025 2:57 PM [facility] Alkaline Phosphatase 223(H) 42 - 121 unit/L LAB CHEMISTRY METHOD 05/25/2025 2:57 PM [facility] Total Protein 6.3 6.0 - 8.0 g/dL LAB CHEMISTRY METHOD 05/25/2025 2:57 PM [facility] Albumin 2.1(L) 3.2 - 5.0 g/dL LAB CHEMISTRY METHOD 05/25/2025 2:57 PM [facility] Total Bilirubin 0.2 0.0 - 1.4 mg/dL LAB CHEMISTRY METHOD 05/25/2025 2:57 PM [facility] Blood Blood sample taken from central line / Unknown Venipuncture / Unknown 05/25/2025 1:50 PM EDT 05/25/2025 2:01 PM EDT us Charlotte Camara MD LAB BLOOD ORDERABLES Final Re sult Performing Organization Address City/[facility]/ZIP Co de Phone Number [facility] [address] [place] [address], [place] [phone] * (ABNORMAL) Magnesium (05/25/2025 1:50 PM EDT) Magnesium 1.8(L) 1.9 - 2.6 mg/dL LAB CHEMISTRY METHOD 05/25/2025 2:45 PM EDT [facility] Blood Blood sample taken from central line / Unknown Venipuncture / Unknown 05/25/2025 1:50 PM EDT 05/25/2025 2:01 PM EDT us Charlotte Camara MD LAB BLOOD ORDERABLES Final Re sult Performing Organization Address [facility]/ZIP Co de Phone Number [facility] [address] [place] [address], [place] [phone] * POCT Glucose, blood (05/25/2025 12:08 PM EDT) [facility] Signature Glucose POCT 81 70 - 100 mg/dL 05/25/2025 12:08 PM EDT [facility] Blood Capillary blood specimen / Unknown 05/25/2025 12:08 PM EDT 05/25/2025 12:09 PM EDT us Charlotte Camara MD LAB POINT OF CARE TE ST DOCKED DEVICE UNSOLICITED RESULTS Final Result Performing Organization Address [facility]/ZIP Co de Phone Number [facility] [address] [place] [address], [place] [phone] * (ABNORMAL) POCT Glucose, blood (05/25/2025 11:48 AM EDT) Glucose POCT 67(L) 70 - 100 mg/dL 05/25/2025 11:48 AM EDT [facility] Blood Capillary blood specimen / Unknown 05/25/2025 11:48 AM EDT 05/25/2025 11:49 AM EDT us Charlotte Camara MD LAB POINT OF CARE TE ST DOCKED DEVICE UNSOLICITED RESULTS Final Result [facility] [address] [place] [address], [place] [phone] * (ABNORMAL) POCT Glucose, blood (05/25/2025 11:28 AM EDT) Glucose POCT 58(L) 70 - 100 mg/dL 05/25/2025 11:29 AM EDT [facility] Blood Capillary blood specimen / Unknown 05/25/2025 11:28 AM EDT 05/25/2025 11:30 AM EDT us Charlotte Camara MD LAB POINT OF CARE TE ST DOCKED DEVICE UNSOLICITED RESULTS Final Result Performing Organization Address [facility]/ZIP Co de Phone Number [facility] [address] [place] [address], [place] [phone] * POCT Glucose, blood (05/25/2025 8:21 AM EDT) Glucose POCT 82 70 - 100 mg/dL 05/25/2025 8:22 AM EDT [facility] Blood Capillary blood specimen / Unknown 05/25/2025 8:21 AM EDT 05/25/2025 8:24 AM EDT us Charlotte Camara MD LAB POINT OF CARE TE ST DOCKED DEVICE UNSOLICITED RESULTS Final Result [facility] [address] [place] [address], [place] [phone] * (ABNORMAL) Hemoglobin A1c (05/25/2025 5:59 AM EDT) [facility] Hemoglobin A1C 7.6(H) <6.5 % LAB CHEMISTRY METHOD 05/26/2025 8:28 AM EDT [facility] Mean Bld Glu Estim. 171 mg/dL LAB CHEMISTRY METHOD 05/26/2025 8:28 AM EDT [facility] Blood Venous blood specimen / Unknown Existing Catheter / Unknown 05/25/2025 5:59 AM EDT 05/25/2025 6:06 AM EDT Charlotte Camara MD LAB BLOOD ORDERABLES Final Re sult Performing Organization Address [facility]/ZIP Co de Phone Number [facility] [address] [place] [address], [place] [phone] * (ABNORMAL) CBC auto differential (05/25/2025 5:59 AM EDT) [facility] WBC 11.0(H) 4.8 - 10.8 K/mcL LAB HEMETOLOGY METHOD 05/25/2025 6:11 AM EDT [facility] RBC 3.30(L) 3.80 - 4.80 M/mcL LAB HEMETOLOGY METHOD 05/25/2025 6:11 AM EDT [facility] Hemoglobin 8.7(L) 11.5 - 16.0 g/dL LAB HEMETOLOGY METHOD 05/25/2025 6:11 AM EDT [facility] Hematocrit 29.2(L) 35.0 - 47.0 % LAB HEMETOLOGY METHOD 05/25/2025 6:11 AM EDT [facility] MCV 89.6 79.0 - 98.0 FL LAB HEMETOLOGY METHOD 05/25/2025 6:11 AM [facility] MCH 26.7(L) 27.0 - 32.0 pcg LAB HEMETOLOGY METHOD 05/25/2025 6:11 AM [facility] MCHC 29.8(L) 32.0 - 37.0 g/dL LAB HEMETOLOGY METHOD 05/25/2025 6:11 AM [facility] RDW 19.7(H) 11.0 - 15.0 % LAB HEMETOLOGY METHOD 05/25/2025 6:11 AM [facility] Platelets 261 130 - 400 K/mcL LAB HEMETOLOGY METHOD 05/25/2025 6:11 AM [facility] MPV 10.7 7.0 - 11.0 FL LAB HEMETOLOGY METHOD 05/25/2025 6:11 AM [facility] NRBC 0.6 <1.0 % LAB HEMETOLOGY METHOD 05/25/2025 6:11 AM [facility] NRBC Absolute 0.07 <0.10 K/mcL LAB HEMETOLOGY METHOD 05/25/2025 6:11 AM [facility] Neutrophils Relative 78.1 % LAB HEMETOLOGY METHOD 05/25/2025 6:11 AM [facility] Lymphocytes Relative 12.2 % LAB HEMETOLOGY METHOD 05/25/2025 6:11 AM [facility] Monocytes Relative 6.6 % LAB HEMETOLOGY METHOD 05/25/2025 6:11 AM [facility] Eosinophils Relative 1.9 % LAB HEMETOLOGY METHOD 05/25/2025 6:11 AM [facility] Basophils Relative 0.3 % LAB HEMETOLOGY METHOD 05/25/2025 6:11 AM [facility] Immature Granulocytes Relative 0.9 % LAB HEMETOLOGY METHOD 05/25/2025 6:11 AM EDT [facility] Neutrophils Absolute 8.59(H) 1.50 - 7.00 K/[facility] LAB HEMETOLOGY METHOD 05/25/2025 6:11 AM EDT [facility] Lymphocytes Absolute 1.34 1.00 - 5.00 K/mcL LAB HEMETOLOGY METHOD 05/25/2025 6:11 AM EDT [facility] Monocytes Absolute 0.72 0.20 - 1.00 K/[facility] LAB HEMETOLOGY METHOD 05/25/2025 6:11 AM EDT [facility] Eosinophils Absolute 0.21 0.00 - 0.50 K/[facility] LAB HEMETOLOGY METHOD 05/25/2025 6:11 AM EDT [facility] Basophils Absolute 0.03 0.00 - 0.20 K/[facility] LAB HEMETOLOGY METHOD 05/25/2025 6:11 AM EDT [facility] Immature Granulocytes Absolute 0.10(H) 0.00 - 0.03 K/[facility] LAB HEMETOLOGY METHOD 05/25/2025 6:11 AM EDT [facility] Blood Venous blood specimen / Unknown Existing Catheter / Unknown 05/25/2025 5:59 AM EDT 05/25/2025 6:06 AM EDT us Estruby Molina MD LAB BLOOD ORDERABLES Final R esult [facility] [address] [place] [address], * (ABNORMAL) Activated partial thromboplastin time (05/25/2025 5:59 AM EDT) aPTT 43.6(H) 24.1 - 39.3 sec LAB COAGULATION METHOD 05/25/2025 6:20 AM EDT [facility] Blood Venous blood specimen / Unknown Existing Catheter / Unknown 05/25/2025 5:59 AM EDT 05/25/2025 6:06 AM EDT Amarjit Ayala DO LAB BLOOD ORDERABLES Final R esult [facility] [address] [place] [address], [place] [phone] * (ABNORMAL) Prothrombin time with INR (05/25/2025 5:59 AM EDT) Protime 15.1(H) 10.6 - 13.9 sec LAB COAGULATION METHOD 05/25/2025 6:20 AM EDT [facility] INR 1.2 LAB COAGULATION METHOD 05/25/2025 6:20 AM EDT [facility] Blood Venous blood specimen / Unknown Existing Catheter / Unknown 05/25/2025 5:59 AM EDT 05/25/2025 6:06 AM EDT Amarjit yAala LAB BLOOD ORDERABLES Final R esult Performing Organization Address [facility]/ZIP Co de Phone Number [facility] [address] [place] [address], [place] [phone] * Phosphorus (05/25/2025 5:59 AM EDT) Phosphorus 3.0 2.5 - 4.5 mg/dL LAB CHEMISTRY METHOD 05/25/2025 7:14 AM EDT [facility] Blood Venous blood specimen / Unknown Existing Catheter / Unknown 05/25/2025 5:59 AM EDT 05/25/2025 6:06 AM EDT Amarjit Ayala DO LAB BLOOD ORDERABLES Final R esult [facility] [address] [place] [address], [place] [phone] * (ABNORMAL) Calcium, ionized (05/25/2025 5:59 AM EDT) [facility] Calcium Ionized 3.61(L) 4.50 - 5.30 mg/dL 05/25/2025 6:10 AM EDT [facility] Blood Venous blood specimen / Unknown Existing Catheter / Unknown 05/25/2025 5:59 AM EDT 05/25/2025 6:06 AM EDT Amarjit Ayala DO LAB BLOOD ORDERABLES Final R esult [facility] [address] [place] [address], [place] [phone] * (ABNORMAL) Hepatic function panel (05/25/2025 5:59 AM EDT) [facility] Total Protein 5.8(L) 6.0 - 8.0 g/dL LAB CHEMISTRY METHOD 05/25/2025 7:20 AM [facility] Albumin 1.5(L) 3.2 - 5.0 g/dL LAB CHEMISTRY METHOD 05/25/2025 7:20 AM [facility] Total Bilirubin 0.2 0.0 - 1.4 mg/dL LAB CHEMISTRY METHOD 05/25/2025 7:20 AM [facility] Bilirubin, Direct 0.1 0.0 - 0.3 mg/dL LAB CHEMISTRY METHOD 05/25/2025 7:20 AM [facility] Bilirubin, Indirect 0.1 0.0 - 1.1 mg/dL LAB CHEMISTRY METHOD 05/25/2025 7:20 AM [facility] ALT (SGPT) 21 10 - 60 unit/L LAB CHEMISTRY METHOD 05/25/2025 7:20 AM [facility] AST (SGOT) 81(H) 10 - 42 unit/L LAB CHEMISTRY METHOD 05/25/2025 7:20 AM EDT [facility] Alkaline Phosphatase 235(H) 42 - 121 unit/L LAB CHEMISTRY METHOD 05/25/2025 7:20 AM EDT [facility] Blood Venous blood specimen / Unknown Existing Catheter / Unknown 05/25/2025 5:59 AM EDT 05/25/2025 6:06 AM EDT us Desmond Molina MD LAB BLOOD ORDERABLES Final R esult Performing Organization Address City/[facility]/ZIP Co de Phone Number [facility] [address] [place] [address], [place] [phone] * Magnesium (05/25/2025 5:59 AM EDT) Magnesium 2.0 1.9 - 2.6 mg/dL LAB CHEMISTRY METHOD 05/25/2025 7:14 AM EDT [facility] Blood Venous blood specimen / Unknown Existing Catheter / Unknown 05/25/2025 5:59 AM EDT 05/25/2025 6:06 AM EDT us Desmond Molina MD LAB BLOOD ORDERABLES Final R esult Performing Organization Address City/[facility]/ZIP Co de Phone Number [facility] [address] [place] [address], [place] [phone] * (ABNORMAL) Basic metabolic panel (05/25/2025 5:59 AM EDT) Sodium 140 133 - 145 mmol/L LAB CHEMISTRY METHOD 05/25/2025 7:20 AM EDT [facility] Potassium 4.3 3.5 - 5.5 mmol/L LAB CHEMISTRY METHOD 05/25/2025 7:20 AM EDT [facility] Chloride 109 96 - 110 mmol/L LAB CHEMISTRY METHOD 05/25/2025 7:[facility] CO2 17(L) 21 - 32 mmol/L LAB CHEMISTRY METHOD 05/25/2025 7:20 AM [facility] Anion Gap 14(H) 3 - 11 LAB CHEMISTRY METHOD 05/25/2025 7:20 AM [facility] Glucose 117(H) 70 - 100 mg/dL LAB CHEMISTRY METHOD 05/25/2025 7:20 AM [facility] BUN 61(H) 5 - 25 mg/dL LAB CHEMISTRY METHOD 05/25/2025 7:20 AM [facility] Creatinine 4.91(H) 0.50 - 1.10 mg/dL LAB CHEMISTRY METHOD 05/25/2025 7:20 AM [facility] eGFR 8(L) >=60 mL/min/1. 73m2 LAB CHEMISTRY METHOD 05/25/2025 7:20 AM [facility] Comment:Calculation based on the Chronic Kidney Disease Epidemiology Collaboration (CKD-EPI) equation refit without adjustment for race. BUN/Creatinine Ratio 12.4 LAB CHEMISTRY METHOD 05/25/2025 7:20 AM [facility] Calcium 6.9(L) 8.5 - 10.5 mg/dL LAB CHEMISTRY METHOD 05/25/2025 7:20 AM [facility] Blood Venous blood specimen / Unknown Existing Catheter / Unknown 05/25/2025 5:59 AM EDT 05/25/2025 6:06 AM EDT us [employer] AZAR LAB BLOOD ORDERABLES Final R esult [facility] [address] [place] [address], * (ABNORMAL) POCT Glucose, blood (05/25/2025 4:13 AM EDT) Glucose POCT 124(H) 70 - 100 mg/dL 05/25/2025 4:14 AM EDT [facility] Blood Capillary blood specimen / Unknown 05/25/2025 4:13 AM EDT 05/25/2025 4:16 AM EDT [facility] POINT OF CARE TE ST DOCKED DEVICE UNSOLICITED RESULTS Final Result Performing Organization Address City/[facility]/ZIP Co de Phone Number [facility] [address] [place] [address], [place] [phone] * (ABNORMAL) POCT Glucose, blood (05/25/2025 2:16 AM EDT) [facility] Signature Glucose POCT 120(H) 70 - 100 mg/dL 05/25/2025 2:17 AM EDT [facility] Blood Capillary blood specimen / Unknown 05/25/2025 2:16 AM EDT 05/25/2025 2:18 AM EDT us [facility]it [facility] POINT OF CARE TE ST DOCKED DEVICE UNSOLICITED RESULTS Final Result Performing Organization Address [facility] Co de Phone Number [facility] [address] [place] [address], [place] [phone] * Heparin and low molecular weight anti Xa level (05/25/2025 1:14 AM EDT) Heparin Anti-Xa 0.53 0.30 - 0.70 I Unit/mL LAB COAGULATION METHOD 05/25/2025 1:27 AM EDT [facility] Blood Venous blood specimen / Unknown Existing Catheter / Unknown 05/25/2025 1:14 AM EDT 05/25/2025 1:18 AM EDT Narrative [facility] - 05/25/2025 1:27 AM EDT Therapeutic range listed is for Unfractionated Heparin. LMW Heparin therapeutic range: 0.50-1.20 IU/mL Amarjit Ayala LAB BLOOD ORDERABLES Final R esult [facility] [address] [place] [address], [place] [phone] * POCT Glucose, blood (05/25/2025 12:27 AM EDT) Glucose POCT 89 70 - 100 mg/dL 05/25/2025 12:28 AM EDT [facility] Blood Capillary blood specimen / Unknown 05/25/2025 12:27 AM EDT 05/25/2025 12:29 AM EDT Amarjit Ayala LAB POINT OF CARE TE ST DOCKED DEVICE UNSOLICITED RESULTS Final Result Performing Organization Address [facility]/ZIP Co de Phone Number [facility] [address] [place] [address], [place] [phone] * (ABNORMAL) POCT Glucose, blood (05/24/2025 11:12 PM EDT) Glucose POCT 243(H) 70 - 100 mg/dL 05/24/2025 11:13 PM EDT [facility] Blood Capillary blood specimen / Unknown 05/24/2025 11:12 PM EDT 05/24/2025 11:14 PM EDT Amarjit Ayala LAB POINT OF CARE TE ST DOCKED DEVICE UNSOLICITED RESULTS Final Result [facility] [address] [place] [address], [place] [phone] * (ABNORMAL) POCT Glucose, blood (05/24/2025 8:53 PM EDT) Glucose POCT 135(H) 70 - 100 mg/dL 05/24/2025 8:54 PM EDT [facility] Blood Capillary blood specimen / Unknown 05/24/2025 8:53 PM EDT 05/24/2025 8:55 PM EDT Amarjit Ayala LAB POINT OF CARE TE ST DOCKED DEVICE UNSOLICITED RESULTS Final Result Performing Organization Address City/[facility]/ZIP Co de Phone Number [facility] [address] [place] [address], [place] [phone] * (ABNORMAL) POCT Glucose, blood (05/24/2025 7:56 PM EDT) Glucose POCT 136(H) 70 - 100 mg/dL 05/24/2025 7:57 PM EDT [facility] Blood Capillary blood specimen / Unknown 05/24/2025 7:56 PM EDT 05/24/2025 7:58 PM EDT Amarjit Ayala LAB POINT OF CARE TE ST DOCKED DEVICE UNSOLICITED RESULTS Final Result Performing Organization Address [facility]/ZIP Co de Phone Number [facility] [address] [place] [address], [place] [phone] * (ABNORMAL) POCT Glucose, blood (05/24/2025 6:49 PM EDT) Glucose POCT 135(H) 70 - 100 mg/dL 05/24/2025 6:50 PM EDT [facility] Blood Capillary blood specimen / Unknown 05/24/2025 6:49 PM EDT 05/24/2025 6:51 PM EDT [facility] POINT OF CARE TE ST DOCKED DEVICE UNSOLICITED RESULTS Final Result Performing Organization Address City/[facility]/ZIP Co de Phone Number [facility] [address] [place] [address], [place] [phone] * (ABNORMAL) POCT Glucose, blood (05/24/2025 6:17 PM EDT) [facility] Glucose POCT 136(H) 70 - 100 mg/dL 05/24/2025 6:17 PM EDT [facility] Blood Capillary blood specimen / Unknown 05/24/2025 6:17 PM EDT 05/24/2025 6:18 PM EDT Amarjit Ayala DO LAB POINT OF CARE TE ST DOCKED DEVICE UNSOLICITED RESULTS Final Result [facility] [address] [place] [address], [place] [phone] * (ABNORMAL) Heparin and low molecular weight anti Xa level (05/24/2025 6:06 PM EDT) [facility] Heparin Anti-Xa 0.26(L) 0.30 - 0.70 I Unit/mL LAB COAGULATION METHOD 05/24/2025 6:26 PM EDT [facility] Blood Venous blood specimen / Unknown Venipuncture / Unknown 05/24/2025 6:06 PM EDT 05/24/2025 6:13 PM EDT Narrative [facility] - 05/24/2025 6:26 PM EDT Therapeutic range listed is for Unfractionated Heparin. LMW Heparin therapeutic range: 0.50-1.20 IU/mL Amarjit Ayala DO LAB BLOOD ORDERABLES Final R esult [facility] [address] [place] [address], [place] [phone] * (ABNORMAL) Urinalysis microscopic only (05/24/2025 5:12 PM EDT) [facility] RBC, Urine 45.5(H) 0 - 4 /HPF LAB URINALYSIS - AUTOMATED METHOD 05/24/2025 6:36 PM EDT [facility] WBC, Urine >4,000(H) 0 - 4 /HPF LAB URINALYSIS - AUTOMATED METHOD 05/24/2025 6:36 PM EDT [facility] Squamous Epithelial, Urine 48 0 - 60 /LPF LAB URINALYSIS - AUTOMATED METHOD 05/24/2025 6:36 PM EDT [facility] Bacteria, Urine Few(A) Negative /HPF LAB URINALYSIS - AUTOMATED METHOD 05/24/2025 6:36 PM EDT [facility] Hyaline Casts, Urine 4.0(H) 0 - 3 /LPF LAB URINALYSIS - AUTOMATED METHOD 05/24/2025 6:36 PM EDT [facility] Urine Urine specimen obtained by clean catch procedure / Unknown Non-blood Collection / Unknown 05/24/2025 5:12 PM EDT 05/24/2025 5:22 PM EDT Amarjit Ayala DO LAB URINE ORDERABLES Final R esult [facility] [address] [place] [address], [place] [phone] * (ABNORMAL) POCT Glucose, blood (05/24/2025 5:10 PM EDT) Glucose POCT 62(L) 70 - 100 mg/dL 05/24/2025 5:11 PM EDT [facility] Blood Capillary blood specimen / Unknown 05/24/2025 5:10 PM EDT 05/24/2025 5:12 PM EDT Amarjit Ayala DO LAB POINT OF CARE TE ST DOCKED DEVICE UNSOLICITED RESULTS Final Result [facility] [address] [place] [address], [place] [phone] * (ABNORMAL) Procalcitonin (05/24/2025 2:05 PM EDT) Procalcitonin 3.81(H) <=0.16 ng/mL LAB CHEMISTRY METHOD 05/25/2025 9:46 AM EDT [facility] Blood Venous blood specimen / Unknown Venipuncture / Unknown 05/24/2025 2:05 PM EDT 05/24/2025 2:18 PM EDT Narrative [facility] - 05/25/2025 9:46 AM EDT Procalcitonin > 2.00 ng/ml: Procalcitonin Levels above 2.00 ng/ml, on the first day of ICU admission represent a high risk for progression to severe sepsis and/or septic shock. Procalcitonin < 0.50 ng/ml: Procalcitonin levels below 0.50 ng/ml on the first day of ICU admission represent a low risk for progression to severe sepsis and/or septic shock. Concentrations <0.5 ng/mL do not exclude an infection, on account of local ized infections (without systemic signs) which can be associated with such low concentrations, or a systemic infection in its initial stages (<6 hours). Furthermore, increased procalcitonin can occur without infection. PCT concentrations between 0.5 and 2.0 ng/mL should be interpreted taking into account the patient's history. It is recommended to retest PCT within 6-24 hours if any concentrations <2.0 ng/mL are obtained. us Amarjit Ayala DO LAB BLOOD ORDERABLES Final R esult [facility] [address] [place] [address], * Cortisol (05/24/2025 2:05 PM EDT) Cortisol 13.1 mcg/dL LAB CHEMISTRY METHOD 05/24/2025 3:55 PM EDT [facility] Blood Venous blood specimen / Unknown Venipuncture / Unknown 05/24/2025 2:05 PM EDT 05/24/2025 2:18 PM EDT Narrative [facility] - 05/24/2025 3:55 PM EDT CORTISOL REFERENCE RANGE 8 AM SPEC: 5.0-23.0 mcg/dL 4 PM SPEC: 3.0-16.0 mcg/dL 8 PM SPEC: <5.0 mcg/dL us Amarjit Ayala LAB BLOOD ORDERABLES Final R esult Performing Organization Address [facility]/ZIP Co de Phone Number [facility] [address] [place] [address], [place] [phone] * Thyroid stimulating hormone with reflex to free t4 and free t3 (05/24/2025 2:05 PM EDT) TSH 2.67 0.40 - 4.00 mcIU/mL LAB CHEMISTRY METHOD 05/24/2025 3:56 PM EDT [facility] Blood Venous blood specimen / Unknown Venipuncture / Unknown 05/24/2025 2:05 PM EDT 05/24/2025 2:18 PM EDT us Amarjit Ayala DO LAB BLOOD ORDERABLES Final R esult Performing Organization Address [facility]/ZIP Co de Phone Number [facility] [address] [place] [address], [place] [phone] * Treponema pallidum antibody with reflex to RPR and particle agglutination (05/24/2025 2:05 PM EDT) T. Pallidum Antibodies Negative Negative LAB CHEMISTRY METHOD 05/24/2025 4:05 PM EDT [facility] Blood Venous blood specimen / Unknown Venipuncture / Unknown 05/24/2025 2:05 PM EDT 05/24/2025 2:18 PM EDT us Amarjit Ayala LAB BLOOD ORDERABLES Final R esult [facility] [address] [place] [address], [place] [phone] * Folate (05/24/2025 2:05 PM EDT) [facility] Folate 13.2 2.8 - 17.0 ng/ml LAB CHEMISTRY METHOD 05/24/2025 3:20 PM EDT [facility] Blood Venous blood specimen / Unknown Venipuncture / Unknown 05/24/2025 2:05 PM EDT 05/24/2025 2:18 PM EDT Amarjit Denisusana LAB BLOOD ORDERABLES Final R esult Performing Organization Address City/[facility]/ZIP Co de Phone Number [facility] [address] [place] [address], [place] [phone] * (ABNORMAL) Vitamin B12 (05/24/2025 2:05 PM EDT) [facility] Vitamin B-12 1,040(H) 250 - 900 pcg/mL LAB CHEMISTRY METHOD 05/24/2025 3:20 PM EDT [facility] Blood Venous blood specimen / Unknown Venipuncture / Unknown 05/24/2025 2:05 PM EDT 05/24/2025 2:18 PM EDT Amarjit Ayala LAB BLOOD ORDERABLES Final R esult [facility] [address] [place] [address], [place] [phone] * Hepatitis B surface antigen with reflex to confirmation (05/24/2025 2:05 PM EDT) [facility] Hepatitis B Surface Ag Negative Negative LAB CHEMISTRY METHOD 05/24/2025 4:06 PM EDT [facility] Blood Venous blood specimen / Unknown Venipuncture / Unknown 05/24/2025 2:05 PM EDT 05/24/2025 2:[address] [facility] - 05/24/2025 4:06 PM EDT Over the counter supplements containing high doses of biotin may interfere with this assay. If interference is suspected, patients shoud be retested after refraining from biotin supplements for 72 hours. us Desmond Molina MD LAB BLOOD ORDERABLES Final R esult Performing Organization Address [facility] Co de Phone Number [facility] [address] [place] [address], * Hepatitis B surface antibody quantitative (05/24/2025 2:05 PM EDT) Hepatitis B Surface Ab Negative Negative LAB CHEMISTRY METHOD 05/24/2025 3:55 PM EDT [facility] Hepatitis B Surface Ab Quantitative 3.5 mIU/mL LAB CHEMISTRY METHOD 05/24/2025 3:55 PM EDT [facility] Blood Venous blood specimen / Unknown Venipuncture / Unknown 05/24/2025 2:05 PM EDT 05/24/2025 2:[address] [facility] - 05/24/2025 3:55 PM EDT >=10 mIU/mL is considered to be consistent with immunity. us Desmond Molina MD LAB BLOOD ORDERABLES Final R esult Performing Organization Address City/[facility]/ZIP Co de Phone Number [facility] [address] [place] [address], [place] [phone] * (ABNORMAL) POCT Glucose, blood (05/24/2025 11:43 AM EDT) Glucose POCT 148(H) 70 - 100 mg/dL 05/24/2025 11:44 AM EDT [facility] Blood Capillary blood specimen / Unknown 05/24/2025 11:43 AM EDT 05/24/2025 11:45 AM EDT us Desmond Molina MD LAB POINT OF CARE TE ST DOCKED DEVICE UNSOLICITED RESULTS Final Result [facility] [address] [place] [address], [place] [phone] * (ABNORMAL) POCT Glucose, blood (05/24/2025 10:37 AM EDT) Glucose POCT 178(H) 70 - 100 mg/dL 05/24/2025 10:38 AM EDT [facility] Blood Capillary blood specimen / Unknown 05/24/2025 10:37 AM EDT 05/24/2025 10:39 AM EDT us Desmond Molina MD LAB POINT OF CARE TE ST DOCKED DEVICE UNSOLICITED RESULTS Final Result Performing Organization Address [facility]/ZIP Co de Phone Number [facility] [address] [place] [address], [place] [phone] * (ABNORMAL) POCT Glucose, blood (05/24/2025 9:42 AM EDT) Glucose POCT 130(H) 70 - 100 mg/dL 05/24/2025 9:43 AM EDT [facility] Blood Capillary blood specimen / Unknown 05/24/2025 9:42 AM EDT 05/24/2025 9:44 AM EDT us Desmond Molina MD LAB POINT OF CARE TE ST DOCKED DEVICE UNSOLICITED RESULTS Final Result [facility] [address] [place] [address], * Angiotensin converting enzyme (05/24/2025 9:11 AM EDT) Angiotensin Converting Enzyme (FLORA) 43 8 - 52 U/L 05/27/2025 11:17 AM EDT [facility] Comment: Test performed at [facility], [address] , [place] [address] Rozina Peterson MD, PhD - Trailer Technician Blood Venous blood specimen / Unknown Venipuncture / Unknown 05/24/2025 9:11 AM EDT 05/24/2025 9:57 AM EDT us Jacobo Davis MD LAB BLOOD ORDERABLES Final Result Performing Organization Address City/[facility]/ZIP Co de Phone Number [facility] [address] [place] [address] * (ABNORMAL) Vitamin D 1,25 dihydroxy (05/24/2025 9:11 AM EDT) Pathologist [facility] Vitamin D, 1, 25-Dihydroxy 19(L) 20 - 79 pg/mL 05/27/2025 9:55 PM EDT [facility] Comment: Vitamin D 1, 25 dihydroxy levels should be primarily used to assess Vitamin D status in patients with renal disease and hypercalcemia. Vitamin D 1,25-dihydroxy levels are generally less than 5 pg/mL in end stage renal disease patients. The preferred initial test for assessing Vitamin D status in the general population is Vitamin D 25-hydroxy (VITD). Test performed at [facility], [address] , [place] [address] Rozina Peterson MD, PhD - Trailer Technician Blood Venous blood specimen / Unknown Venipuncture / Unknown 05/24/2025 9:11 AM EDT 05/24/2025 9:57 AM EDT us Jacobo Davis MD LAB BLOOD ORDERABLES Final Result [facility] [address] [place] [address] * (ABNORMAL) POCT Glucose, blood (05/24/2025 8:26 AM EDT) Glucose POCT 191(H) 70 - 100 mg/dL 05/24/2025 8:27 AM EDT [facility] Blood Capillary blood specimen / Unknown 05/24/2025 8:26 AM EDT 05/24/2025 8:28 AM EDT us Desmond Molina MD LAB POINT OF CARE TE ST DOCKED DEVICE UNSOLICITED RESULTS Final Result Performing Organization Address City/[facility]/ZIP Co de Phone Number [facility] [address] [place] [address], [place] [phone] * (ABNORMAL) POCT Glucose, blood (05/24/2025 7:30 AM EDT) Glucose POCT 201(H) 70 - 100 mg/dL 05/24/2025 7:31 AM EDT [facility] Blood Capillary blood specimen / Unknown 05/24/2025 7:30 AM EDT 05/24/2025 7:32 AM EDT us Desmond Molina MD LAB POINT OF CARE TE ST DOCKED DEVICE UNSOLICITED RESULTS Final Result [facility] [address] [place] [address], [place] [phone] * (ABNORMAL) POCT Glucose, blood (05/24/2025 6:26 AM EDT) Glucose POCT 213(H) 70 - 100 mg/dL 05/24/2025 6:27 AM EDT [facility] Blood Capillary blood specimen / Unknown 05/24/2025 6:26 AM EDT 05/24/2025 6:28 AM EDT us Desmond Molina MD LAB POINT OF CARE TE ST DOCKED DEVICE UNSOLICITED RESULTS Final Result [facility] [address] [place] [address], [place] [phone] * (ABNORMAL) POCT Glucose, blood (05/24/2025 5:26 AM EDT) Glucose POCT 174(H) 70 - 100 mg/dL 05/24/2025 5:27 AM EDT [facility] POCT Comment RN Notified 05/24/2025 5:27 AM EDT [facility] Blood Capillary blood specimen / Unknown 05/24/2025 5:26 AM EDT 05/24/2025 5:28 AM EDT us Desmond Molina MD LAB POINT OF CARE TE ST DOCKED DEVICE UNSOLICITED RESULTS Final Result Performing Organization Address [facility]/ZIP Co de Phone Number [facility] [address] [place] [address], [place] [phone] * (ABNORMAL) POCT Glucose, blood (05/24/2025 5:14 AM EDT) Glucose POCT 401(HH) 70 - 100 mg/dL 05/24/2025 5:15 AM EDT [facility] POCT Comment RN Notified 05/24/2025 5:15 AM EDT [facility] Blood Capillary blood specimen / Unknown 05/24/2025 5:14 AM EDT 05/24/2025 5:16 AM EDT us Desmond Molina MD LAB POINT OF CARE TE ST DOCKED DEVICE UNSOLICITED RESULTS Final Result [facility] [address] [place] [address], [place] [phone] * (ABNORMAL) POCT Glucose, blood (05/24/2025 5:11 AM EDT) Glucose POCT 18(LL) 70 - 100 mg/dL 05/24/2025 5:11 AM EDT [facility] POCT Comment RN Notified 05/24/2025 5:11 AM EDT [facility] Blood Capillary blood specimen / Unknown 05/24/2025 5:11 AM EDT 05/24/2025 5:13 AM EDT us Desmond Molina MD LAB POINT OF CARE TE ST DOCKED DEVICE UNSOLICITED RESULTS Final Result Performing Organization Address [facility]/ZIP Co de Phone Number [facility] [address] [place] [address], [place] [phone] * (ABNORMAL) POCT Glucose, blood (05/24/2025 5:05 AM EDT) Glucose POCT <10(LL) 70 - 100 mg/dL 05/24/2025 5:10 AM EDT [facility] POCT Comment RN Notified 05/24/2025 5:10 AM EDT [facility] Blood Capillary blood specimen / Unknown 05/24/2025 5:05 AM EDT 05/24/2025 5:12 AM EDT us Desmond Molina MD LAB POINT OF CARE TE ST DOCKED DEVICE UNSOLICITED RESULTS Final Result Performing Organization Address City/[facility]/ZIP Co de Phone Number [facility] [address] [place] [address], [place] [phone] * (ABNORMAL) CBC auto differential (05/24/2025 2:37 AM EDT) [facility] WBC 11.9(H) 4.8 - 10.8 K/mcL LAB HEMETOLOGY METHOD 05/24/2025 2:56 AM [facility] RBC 3.50(L) 3.80 - 4.80 M/mcL LAB HEMETOLOGY METHOD 05/24/2025 2:56 AM [facility] Hemoglobin 9.1(L) 11.5 - 16.0 g/dL LAB HEMETOLOGY METHOD 05/24/2025 2:56 AM [facility] Hematocrit 31.2(L) 35.0 - 47.0 % LAB HEMETOLOGY METHOD 05/24/2025 2:56 AM [facility] MCV 89.7 79.0 - 98.0 FL LAB HEMETOLOGY METHOD 05/24/2025 2:56 AM [facility] MCH 26.1(L) 27.0 - 32.0 pcg LAB HEMETOLOGY METHOD 05/24/2025 2:56 AM [facility] MCHC 29.2(L) 32.0 - 37.0 g/dL LAB HEMETOLOGY METHOD 05/24/2025 2:56 AM [facility] RDW 19.4(H) 11.0 - 15.0 % LAB HEMETOLOGY METHOD 05/24/2025 2:56 AM [facility] Platelets 260 130 - 400 K/mcL LAB HEMETOLOGY METHOD 05/24/2025 2:56 AM [facility] MPV 11.1(H) 7.0 - 11.0 FL LAB HEMETOLOGY METHOD 05/24/2025 2:56 AM [facility] NRBC 0.6 <1.0 % LAB HEMETOLOGY METHOD 05/24/2025 2:56 AM [facility] NRBC Absolute 0.07 <0.10 K/mcL LAB HEMETOLOGY METHOD 05/24/2025 2:56 AM T [facility] Neutrophils Relative 79.6 % LAB HEMETOLOGY METHOD 05/24/2025 2:56 AM [facility] Lymphocytes Relative 11.8 % LAB HEMETOLOGY METHOD 05/24/2025 2:56 AM [facility] Monocytes Relative 6.2 % LAB HEMETOLOGY METHOD 05/24/2025 2:56 AM [facility] Eosinophils Relative 1.3 % LAB HEMETOLOGY METHOD 05/24/2025 2:56 AM [facility] Basophils Relative 0.3 % LAB HEMETOLOGY METHOD 05/24/2025 2:56 AM [facility] Immature Granulocytes Relative 0.8 % LAB HEMETOLOGY METHOD 05/24/2025 2:56 AM [facility] Neutrophils Absolute 9.43(H) 1.50 - 7.00 K/mcL LAB HEMETOLOGY METHOD 05/24/2025 2:56 AM [facility] Lymphocytes Absolute 1.40 1.00 - 5.00 K/mcL LAB HEMETOLOGY METHOD 05/24/2025 2:56 AM [facility] Monocytes Absolute 0.74 0.20 - 1.00 K/mcL LAB HEMETOLOGY METHOD 05/24/2025 2:56 AM [facility] Eosinophils Absolute 0.16 0.00 - 0.50 K/mcL LAB HEMETOLOGY METHOD 05/24/2025 2:56 AM [facility] Basophils Absolute 0.04 0.00 - 0.20 K/mcL LAB HEMETOLOGY METHOD 05/24/2025 2:56 AM [facility] Immature Granulocytes Absolute 0.09(H) 0.00 - 0.03 K/mcL LAB HEMETOLOGY METHOD 05/24/2025 2:56 AM EDT [facility] Blood Venous blood specimen / Unknown Venipuncture / Unknown 05/24/2025 2:37 AM EDT 05/24/2025 2:51 AM EDT us Estruby Molina MD LAB BLOOD ORDERABLES Final R esult [facility] [address] [place] [address], * (ABNORMAL) CBC - Every 3 Days (05/24/2025 2:37 AM EDT) WBC 11.9(H) 4.8 - 10.8 K/mcL LAB HEMETOLOGY METHOD 05/24/2025 2:56 AM EDT [facility] RBC 3.50(L) 3.80 - 4.80 M/mcL LAB HEMETOLOGY METHOD 05/24/2025 2:56 AM EDT [facility] Hemoglobin 9.1(L) 11.5 - 16.0 g/dL LAB HEMETOLOGY METHOD 05/24/2025 2:56 AM EDT [facility] Hematocrit 31.2(L) 35.0 - 47.0 % LAB HEMETOLOGY METHOD 05/24/2025 2:56 AM EDT [facility] MCV 89.7 79.0 - 98.0 FL LAB HEMETOLOGY METHOD 05/24/2025 2:56 AM EDT [facility] MCH 26.1(L) 27.0 - 32.0 pcg LAB HEMETOLOGY METHOD 05/24/2025 2:56 AM EDT [facility] MCHC 29.2(L) 32.0 - 37.0 g/dL LAB HEMETOLOGY METHOD 05/24/2025 2:56 AM EDT [facility] RDW 19.4(H) 11.0 - 15.0 % LAB HEMETOLOGY METHOD 05/24/2025 2:56 AM EDT [facility] Platelets 260 130 - 400 K/mcL LAB HEMETOLOGY METHOD 05/24/2025 2:56 AM EDT [facility] MPV 11.1(H) 7.0 - 11.0 FL LAB HEMETOLOGY METHOD 05/24/2025 2:56 AM EDT [facility] NRBC 0.6 <1.0 % LAB HEMETOLOGY METHOD 05/24/2025 2:56 AM EDT [facility] NRBC Absolute 0.07 <0.10 K/mcL LAB HEMETOLOGY METHOD 05/24/2025 2:56 AM EDT [facility] Blood Venous blood specimen / Unknown Venipuncture / Unknown 05/24/2025 2:37 AM EDT 05/24/2025 2:51 AM EDT us Desmond Molina MD LAB BLOOD ORDERABLES Final R esult [facility] [address] [place] [address], * Phosphorus (05/24/2025 2:37 AM EDT) [facility] Signature Phosphorus 3.0 2.5 - 4.5 mg/dL LAB CHEMISTRY METHOD 05/24/2025 4:11 AM EDT [facility] Blood Venous blood specimen / Unknown Venipuncture / Unknown 05/24/2025 2:37 AM EDT 05/24/2025 2:51 AM EDT us Desmond Molina MD LAB BLOOD ORDERABLES Final R esult [facility] [address] [place] [address], * Magnesium (05/24/2025 2:37 AM EDT) [facility] Magnesium 2.0 1.9 - 2.6 mg/dL LAB CHEMISTRY METHOD 05/24/2025 4:11 AM [facility] Comment:Hemolysis present Blood Venous blood specimen / Unknown Venipuncture / Unknown 05/24/2025 2:37 AM EDT 05/24/2025 2:51 AM EDT [facility] BLOOD ORDERABLES Final R esult [facility] [address] [place] [address], * (ABNORMAL) Basic metabolic panel (05/24/2025 2:37 AM EDT) [facility] Sodium 140 133 - 145 mmol/L LAB CHEMISTRY METHOD 05/24/2025 4:11 AM [facility] Potassium 5.8(H) 3.5 - 5.5 mmol/L LAB CHEMISTRY METHOD 05/24/2025 4:11 AM [facility] Comment:Hemolysis present Chloride 116(H) 96 - 110 mmol/L LAB CHEMISTRY METHOD 05/24/2025 4:11 AM [facility] CO2 15(L) 21 - 32 mmol/L LAB CHEMISTRY METHOD 05/24/2025 4:11 AM [facility] Anion Gap 9 3 - 11 LAB CHEMISTRY METHOD 05/24/2025 4:11 AM [facility] Glucose 96 70 - 100 mg/dL LAB CHEMISTRY METHOD 05/24/2025 4:11 AM [facility] BUN 53(H) 5 - 25 mg/dL LAB CHEMISTRY METHOD 05/24/2025 4:11 AM [facility] Creatinine 4.52(H) 0.50 - 1.10 mg/dL LAB CHEMISTRY METHOD 05/24/2025 4:11 AM EDT [facility] eGFR 9(L) >=60 mL/min/1. 73m2 LAB CHEMISTRY METHOD 05/24/2025 4:11 AM EDT [facility] Comment:Calculation based on the Chronic Kidney Disease Epidemiology Collaboration (CKD-EPI) equation refit without adjustment for race. BUN/Creatinine Ratio 11.7 LAB CHEMISTRY METHOD 05/24/2025 4:11 AM EDT [facility] Calcium 7.0(L) 8.5 - 10.5 mg/dL LAB CHEMISTRY METHOD 05/24/2025 4:11 AM EDT [facility] Blood Venous blood specimen / Unknown Venipuncture / Unknown 05/24/2025 2:37 AM EDT 05/24/2025 2:51 AM EDT us Desmond Molina MD LAB BLOOD ORDERABLES Final R esult Performing Organization Address City/[facility]/ZIP Co de Phone Number [facility] [address] [place] [address], * (ABNORMAL) Heparin and low molecular weight anti Xa level (05/24/2025 2:37 AM EDT) Heparin Anti-Xa 0.86(H) 0.30 - 0.70 I Unit/mL LAB COAGULATION METHOD 05/24/2025 3:01 AM EDT [facility] Blood Venous blood specimen / Unknown Venipuncture / Unknown 05/24/2025 2:37 AM EDT 05/24/2025 2:51 AM EDT Narrative [facility] - 05/24/2025 3:01 AM EDT Therapeutic range listed is for Unfractionated Heparin. LMW Heparin therapeutic range: 0.50-1.20 IU/mL us Desmond Molina MD LAB BLOOD ORDERABLES Final R esult [facility] [address] [place] [address], [place] [phone] * POCT Glucose, blood (05/24/2025 2:36 AM EDT) Glucose POCT 93 70 - 100 mg/dL 05/24/2025 2:38 AM EDT [facility] Blood Capillary blood specimen / Unknown 05/24/2025 2:36 AM EDT 05/24/2025 2:39 AM EDT us Desmond Molina MD LAB POINT OF CARE TE ST DOCKED DEVICE UNSOLICITED RESULTS Final Result Performing Organization Address City/[facility]/ZIP Co de Phone Number [facility] [address] [place] [address], [place] [phone] * (ABNORMAL) POCT Glucose, blood (05/24/2025 12:49 AM EDT) Glucose POCT 111(H) 70 - 100 mg/dL 05/24/2025 12:49 AM EDT [facility] Blood Capillary blood specimen / Unknown 05/24/2025 12:49 AM EDT 05/24/2025 12:54 AM EDT us Desmond Molina MD LAB POINT OF CARE TE ST DOCKED DEVICE UNSOLICITED RESULTS Final Result [facility] [address] [place] [address], [place] [phone] * (ABNORMAL) POCT Glucose, blood (05/24/2025 12:39 AM EDT) Glucose POCT 102(H) 70 - 100 mg/dL 05/24/2025 12:39 AM EDT [facility] Blood Capillary blood specimen / Unknown 05/24/2025 12:39 AM EDT 05/24/2025 12:40 AM EDT us Desmond Molina MD LAB POINT OF CARE TE ST DOCKED DEVICE UNSOLICITED RESULTS Final Result [facility] [address] [place] [address], * (ABNORMAL) Basic metabolic panel (05/24/2025 12:25 AM EDT) Sodium 138 133 - 145 mmol/L LAB CHEMISTRY METHOD 05/24/2025 1:23 AM [facility] Potassium 6.0(H) 3.5 - 5.5 mmol/L LAB CHEMISTRY METHOD 05/24/2025 1:23 AM [facility] Comment:Hemolysis present Chloride 115(H) 96 - 110 mmol/L LAB CHEMISTRY METHOD 05/24/2025 1:23 AM [facility] CO2 15(L) 21 - 32 mmol/L LAB CHEMISTRY METHOD 05/24/2025 1:23 AM [facility] Anion Gap 8 3 - 11 LAB CHEMISTRY METHOD 05/24/2025 1:23 AM [facility] Glucose 104(H) 70 - 100 mg/dL LAB CHEMISTRY METHOD 05/24/2025 1:23 AM [facility] BUN 54(H) 5 - 25 mg/dL LAB CHEMISTRY METHOD 05/24/2025 1:23 AM [facility] Creatinine 4.36(H) 0.50 - 1.10 mg/dL LAB CHEMISTRY METHOD 05/24/2025 1:23 AM [facility] eGFR 10(L) >=60 mL/min/1. 73m2 LAB CHEMISTRY METHOD 05/24/2025 1:23 AM [facility] Comment:Calculation based on the Chronic Kidney Disease Epidemiology Collaboration (CKD-EPI) equation refit without adjustment for race. BUN/Creatinine Ratio 12.4 LAB CHEMISTRY METHOD 05/24/2025 1:23 AM EDT [facility] Calcium 7.0(L) 8.5 - 10.5 mg/dL LAB CHEMISTRY METHOD 05/24/2025 1:23 AM EDT [facility] Blood Venous blood specimen / Unknown Venipuncture / Unknown 05/24/2025 12:25 AM EDT 05/24/2025 12:32 AM EDT Rosalind AGARWAL LAB BLOOD ORDERABLES Final Re sult Performing Organization Address City/[facility]/ZIP Co de Phone Number [facility] [address] [place] [address], [place] [phone] * (ABNORMAL) Anti-Xa - Every 6 Hours (05/24/2025 12:18 AM EDT) Heparin Anti-Xa 1.20(H) 0.30 - 0.70 I Unit/mL LAB COAGULATION METHOD 05/24/2025 12:45 AM EDT [facility] Blood Venous blood specimen / Unknown Venipuncture / Unknown 05/24/2025 12:18 AM EDT 05/24/2025 12:32 AM EDT Narrative [facility] - 05/24/2025 12:45 AM EDT Therapeutic range listed is for Unfractionated Heparin. LMW Heparin therapeutic range: 0.50-1.20 IU/mL Desmond Molina MD LAB BLOOD ORDERABLES Final R esult [facility] [address] [place] [address], [place] [phone] * Lavender tube (05/24/2025 12:17 AM EDT) Extra Tube Hold for add-ons. 05/24/2025 2:01 AM EDT [facility] Comment:Auto resulted. Blood Venous blood specimen / Unknown Venipuncture / Unknown 05/24/2025 12:17 AM EDT 05/24/2025 12:33 AM EDT us Desmond Molina MD LAB BLOOD ORDERABLES Final R esult Performing Organization Address City/[facility]/ZIP Co de Phone Number [facility] [address] [place] [address], [place] [phone] * (ABNORMAL) POCT Glucose, blood (05/23/2025 11:55 PM EDT) Glucose POCT 62(L) 70 - 100 mg/dL 05/23/2025 11:56 PM EDT [facility] Blood Capillary blood specimen / Unknown 05/23/2025 11:55 PM EDT 05/23/2025 11:57 PM EDT us Desmond Molina MD LAB POINT OF CARE TE ST DOCKED DEVICE UNSOLICITED RESULTS Final Result Performing Organization Address [facility]/ZIP Co de Phone Number [facility] [address] [place] [address], [place] [phone] * POCT Glucose, blood (05/23/2025 11:46 PM EDT) Glucose POCT 95 70 - 100 mg/dL 05/23/2025 11:47 PM EDT [facility] Blood Capillary blood specimen / Unknown 05/23/2025 11:46 PM EDT 05/23/2025 11:48 PM EDT us Desmond Molina MD LAB POINT OF CARE TE ST DOCKED DEVICE UNSOLICITED RESULTS Final Result Performing Organization Address City/[facility]/ZIP Co de Phone Number [facility] [address] [place] [address], [place] [phone] * (ABNORMAL) POCT Glucose, blood (05/23/2025 11:21 PM EDT) [facility] Glucose POCT 21(LL) 70 - 100 mg/dL 05/23/2025 11:54 PM EDT [facility] Blood Capillary blood specimen / Unknown 05/23/2025 11:21 PM EDT 05/23/2025 11:56 PM EDT us Desmond Molina MD LAB POINT OF CARE TE ST DOCKED DEVICE UNSOLICITED RESULTS Final Result [facility] [address] [place] [address], [place] [phone] * (ABNORMAL) Anti-Xa - Every 6 Hours (05/23/2025 5:48 PM EDT) [facility] Heparin Anti-Xa 1.37(H) 0.30 - 0.70 I Unit/mL LAB COAGULATION METHOD 05/23/2025 7:36 PM EDT [facility] Blood Venous blood specimen / Unknown Venipuncture / Unknown 05/23/2025 5:48 PM EDT 05/23/2025 6:31 PM EDT Narrative [facility] - 05/23/2025 7:36 PM EDT Therapeutic range listed is for Unfractionated Heparin. LMW Heparin therapeutic range: 0.50-1.20 IU/mL us Desmond Molina MD LAB BLOOD ORDERABLES Final R esult [facility] [address] [place] [address], [place] [phone] * Potassium (05/23/2025 3:54 PM EDT) [facility] Potassium 5.3 3.5 - 5.5 mmol/L LAB CHEMISTRY METHOD 05/23/2025 4:39 PM EDT [facility] Blood Venous blood specimen / Unknown Venipuncture / Unknown 05/23/2025 3:54 PM EDT 05/23/2025 4:17 PM EDT us Desmond Molina MD LAB BLOOD ORDERABLES Final R esult Performing Organization Address City/[facility]/ZIP Co de Phone Number [facility] [address] [place] [address], [place] [phone] * (ABNORMAL) Anti-Xa - STAT (05/23/2025 12:05 PM EDT) Heparin Anti-Xa 0.72(H) 0.30 - 0.70 I Unit/mL LAB COAGULATION METHOD 05/23/2025 12:25 PM EDT [facility] Blood Venous blood specimen / Unknown Venipuncture / Unknown 05/23/2025 12:05 PM EDT 05/23/2025 12:12 PM EDT Narrative [facility] - 05/23/2025 12:25 PM EDT Therapeutic range listed is for Unfractionated Heparin. LMW Heparin therapeutic range: 0.50-1.20 IU/mL us Desmond Molina MD LAB BLOOD ORDERABLES Final R esult [facility] [address] [place] [address], [place] [phone] * Activated Partial Thromboplastin Time - STAT (05/23/2025 12:05 PM EDT) aPTT 30.4 24.1 - 39.3 sec LAB COAGULATION METHOD 05/23/2025 12:25 PM EDT [facility] Blood Venous blood specimen / Unknown Venipuncture / Unknown 05/23/2025 12:05 PM EDT 05/23/2025 12:12 PM EDT us Desmond Molina MD LAB BLOOD ORDERABLES Final R esult Performing Organization Address [facility]/ZIP Co de Phone Number [facility] [address] [place] [address], [place] [phone] * (ABNORMAL) Prothrombin Time with INR - STAT (05/23/2025 12:05 PM EDT) Protime 17.3(H) 10.6 - 13.9 sec LAB COAGULATION METHOD 05/23/2025 12:25 PM EDT [facility] INR 1.4 LAB COAGULATION METHOD 05/23/2025 12:25 PM EDT [facility] Blood Venous blood specimen / Unknown Venipuncture / Unknown 05/23/2025 12:05 PM EDT 05/23/2025 12:12 PM EDT us Desmond Molina MD LAB BLOOD ORDERABLES Final R esult Performing Organization Address City/[facility]/ZIP Co de Phone Number [facility] [address] [place] [address], [place] [phone] * XR Chest 1 View (05/23/2025 10:22 AM EDT) Anatomical Region Laterality Modality Body Radiographic Steph ging 05/23/2025 10:4 3 AM EDT Impressions 05/23/2025 10:45 AM EDT Cardiomegaly, also seen on 09/14/2024. Moderate pulmonary vascular congestion with small bilateral pleural effusions has developed since the prior study consistent with interval development of congestive heart failure. Code 30[address] CT Teleradiology -------- FINAL REPORT -------- Dictated By: Marino Bradshaw Dictated Date: 05/23/2025 10:43 ET Assigned Physician: Marino Bradhsaw Reviewed and Electronically Signed By: Marino Bradshaw Signed Date: 05/23/2025 10:45 ET Workstation ID: [id number] Transcribed By: Self Edit Transcribed Date: 05/23/2025 10:43 ET Narrative 05/23/2025 10:45 AM EDT HISTORY: The patient is an 79-year-old female with hypoxia. FINDINGS: Sitting AP portable radiograph of the chest again demonstrates 2 surgical anchors in the right humeral head as also seen on the prior study performed 05/15/2025. Again seen are degenerative changes of the thoracic spine. The cardiac silhouette is again seen to be enlarged. The aortic knob is calcified. Pulmonary vascular congestion and small bilateral pleural effusions have developed since the prior study consistent with congestive heart failure. No consolidation or mass is seen. Procedure Note Marino Bradshaw MD - 05/23/2025 HISTORY: The patient is an 79-year-old female with hypoxia. FINDINGS: Sitting AP portable radiograph of the chest again demonstrates 2surgical anchors in the right humeral head as also seen on the prior studyperformed 05/15/2025. Again seen are degenerative changes of the thoracicspine. The cardiac silhouette is again seen to be enlarged. The aorticknob is calcified. Pulmonary vascular congestion and small bilateralpleural effusions have developed since the prior study consistent withcongestive heart failure. No consolidation or mass is seen. IMPRESSION: Cardiomegaly, also seen on 09/14/2024. Moderate pulmonary vascularcongestion with small bilateral pleural effusions has developed since theprior study consistent with interval development of congestive heartfailure. Code 97637 CT Teleradiology -------- FINAL REPORT -------- Dictated By: Marino Bradshaw Dictated Date: 05/23/2025 10:43 ET Assigned Physician: Marino Bradshaw Reviewed and Electronically Signed By: Marino Bradshaw Signed Date: 05/23/2025 10:45 ET Workstation ID: [id number] Transcribed By: Self Edit Transcribed Date: 05/23/2025 10:43 ET us [facility]AR IMG XR PROCEDURES Final Resu lt * (ABNORMAL) POCT Glucose, blood (05/23/2025 9:16 AM EDT) Glucose POCT 112(H) 70 - 100 mg/dL 05/23/2025 9:17 AM EDT [facility] Blood Capillary blood specimen / Unknown 05/23/2025 9:16 AM EDT 05/23/2025 9:18 AM EDT us Desmond Molina MD LAB POINT OF CARE TE ST DOCKED DEVICE UNSOLICITED RESULTS Final Result [facility] [address] [place] [address], [place] [phone] * (ABNORMAL) POCT Glucose, blood (05/23/2025 8:54 AM EDT) [facility] Signature Glucose POCT <10(LL) 70 - 100 mg/dL 05/23/2025 9:00 AM EDT [facility] Blood Capillary blood specimen / Unknown 05/23/2025 8:54 AM EDT 05/23/2025 9:01 AM EDT us Desmond Molina MD LAB POINT OF CARE TE ST DOCKED DEVICE UNSOLICITED RESULTS Final Result Performing Organization Address City/[facility]/ZIP Co de Phone Number [facility] [address] [place] [address], [place] [phone] * (ABNORMAL) CBC auto differential (05/23/2025 5:49 AM EDT) WBC 11.6(H) 4.8 - 10.8 K/mcL LAB HEMETOLOGY METHOD 05/23/2025 6:35 AM EDT [facility] RBC 3.80 3.80 - 4.80 M/mcL LAB HEMETOLOGY METHOD 05/23/2025 6:35 AM EDT [facility] Hemoglobin 10.1(L) 11.5 - 16.0 g/dL LAB HEMETOLOGY METHOD 05/23/2025 6:35 AM [facility] Hematocrit 35.3 35.0 - 47.0 % LAB HEMETOLOGY METHOD 05/23/2025 6:35 AM [facility] MCV 92.9 79.0 - 98.0 FL LAB HEMETOLOGY METHOD 05/23/2025 6:35 AM [facility] MCH 26.6(L) 27.0 - 32.0 pcg LAB HEMETOLOGY METHOD 05/23/2025 6:35 AM [facility] MCHC 28.6(L) 32.0 - 37.0 g/dL LAB HEMETOLOGY METHOD 05/23/2025 6:35 AM [facility] RDW 19.4(H) 11.0 - 15.0 % LAB HEMETOLOGY METHOD 05/23/2025 6:35 AM [facility] Platelets 249 130 - 400 K/mcL LAB HEMETOLOGY METHOD 05/23/2025 6:35 AM [facility] MPV 11.2(H) 7.0 - 11.0 FL LAB HEMETOLOGY METHOD 05/23/2025 6:35 AM [facility] NRBC 0.8 <1.0 % LAB HEMETOLOGY METHOD 05/23/2025 6:35 AM [facility] NRBC Absolute 0.09 <0.10 K/mcL LAB HEMETOLOGY METHOD 05/23/2025 6:35 AM [facility] Neutrophils Relative 82.7 % LAB HEMETOLOGY METHOD 05/23/2025 6:35 AM [facility] Lymphocytes Relative 10.1 % LAB HEMETOLOGY METHOD 05/23/2025 6:35 AM [facility] LAB Monocytes Relative 5.3 % LAB HEMETOLOGY METHOD 05/23/2025 6:35 AM [facility] LAB Eosinophils Relative 0.8 % LAB HEMETOLOGY METHOD 05/23/2025 6:35 AM EDT [facility] LAB Basophils Relative 0.3 % LAB HEMETOLOGY METHOD 05/23/2025 6:35 AM EDT [facility] LAB Immature Granulocytes Relative 0.8 % LAB HEMETOLOGY METHOD 05/23/2025 6:35 AM EDT [facility] LAB Neutrophils Absolute 9.58(H) 1.50 - 7.00 K/mcL LAB HEMETOLOGY METHOD 05/23/2025 6:35 AM EDT [facility] LAB Lymphocytes Absolute 1.17 1.00 - 5.00 K/mcL LAB HEMETOLOGY METHOD 05/23/2025 6:35 AM EDT [facility] LAB Monocytes Absolute 0.61 0.20 - 1.00 K/mcL LAB HEMETOLOGY METHOD 05/23/2025 6:35 AM EDT [facility] LAB Eosinophils Absolute 0.09 0.00 - 0.50 K/mcL LAB HEMETOLOGY METHOD 05/23/2025 6:35 AM EDT [facility] LAB Basophils Absolute 0.04 0.00 - 0.20 K/mcL LAB HEMETOLOGY METHOD 05/23/2025 6:35 AM EDT [facility] Immature Granulocytes Absolute 0.09(H) 0.00 - 0.03 K/mcL LAB HEMETOLOGY METHOD 05/23/2025 6:35 AM EDT [facility] Blood Venous blood specimen / Unknown Venipuncture / Unknown 05/23/2025 5:49 AM EDT 05/23/2025 6:22 AM EDT us Estate Tracy AZAR LAB BLOOD ORDERABLES Final R esult [facility] [address] [place] [address], * (ABNORMAL) Basic metabolic panel (05/23/2025 5:49 AM EDT) Sodium 141 133 - 145 mmol/L LAB CHEMISTRY METHOD 05/23/2025 7:03 AM [facility] Potassium 5.8(H) 3.5 - 5.5 mmol/L LAB CHEMISTRY METHOD 05/23/2025 7:03 AM [facility] Chloride 116(H) 96 - 110 mmol/L LAB CHEMISTRY METHOD 05/23/2025 7:03 AM [facility] CO2 18(L) 21 - 32 mmol/L LAB CHEMISTRY METHOD 05/23/2025 7:03 AM [facility] Anion Gap 7 3 - 11 LAB CHEMISTRY METHOD 05/23/2025 7:03 AM [facility] Glucose 54(L) 70 - 100 mg/dL LAB CHEMISTRY METHOD 05/23/2025 7:03 AM [facility] BUN 49(H) 5 - 25 mg/dL LAB CHEMISTRY METHOD 05/23/2025 7:03 AM [facility] Creatinine 4.01(H) 0.50 - 1.10 mg/dL LAB CHEMISTRY METHOD 05/23/2025 7:03 AM [facility] eGFR 11(L) >=60 mL/min/1. 73m2 LAB CHEMISTRY METHOD 05/23/2025 7:03 AM [facility] Comment:Calculation based on the Chronic Kidney Disease Epidemiology Collaboration (CKD-EPI) equation refit without adjustment for race. BUN/Creatinine Ratio 12.2 LAB CHEMISTRY METHOD 05/23/2025 7:03 AM [facility] Calcium 7.5(L) 8.5 - 10.5 mg/dL LAB CHEMISTRY METHOD 05/23/2025 7:03 AM [facility] Blood Venous blood specimen / Unknown Venipuncture / Unknown 05/23/2025 5:49 AM EDT 05/23/2025 6:22 AM EDT us Desmond Molina MD LAB BLOOD ORDERABLES Final R esult Performing Organization Address [facility]/ZIP Co de Phone Number [facility] [address] [place] [address], [place] [phone] * Light blue tube (05/22/2025 5:52 AM EDT) [facility] Extra Tube Hold for add-ons. 05/22/2025 8:01 AM EDT [facility] Comment:Auto resulted. Blood Venous blood specimen / Unknown Venipuncture / Unknown 05/22/2025 5:52 AM EDT 05/22/2025 6:19 AM EDT us Desmond Molina MD LAB BLOOD ORDERABLES Final R esult Performing Organization Address City/[facility]/ZIP Co de Phone Number [facility] [address] [place] [address], [place] [phone] * (ABNORMAL) CBC auto differential (05/22/2025 5:52 AM EDT) [facility] WBC 12.6(H) 4.8 - 10.8 K/mcL LAB HEMETOLOGY METHOD 05/22/2025 6:36 AM EDT [facility] RBC 3.50(L) 3.80 - 4.80 M/mcL LAB HEMETOLOGY METHOD 05/22/2025 6:36 AM EDT [facility] Hemoglobin 9.4(L) 11.5 - 16.0 g/dL LAB HEMETOLOGY METHOD 05/22/2025 6:36 AM EDT [facility] Hematocrit 33.3(L) 35.0 - 47.0 % LAB HEMETOLOGY METHOD 05/22/2025 6:36 AM EDT [facility] MCV 94.6 79.0 - 98.0 FL LAB HEMETOLOGY METHOD 05/22/2025 6:36 AM [facility] MCH 26.7(L) 27.0 - 32.0 pcg LAB HEMETOLOGY METHOD 05/22/2025 6:36 AM [facility] MCHC 28.2(L) 32.0 - 37.0 g/dL LAB HEMETOLOGY METHOD 05/22/2025 6:36 AM [facility] RDW 18.8(H) 11.0 - 15.0 % LAB HEMETOLOGY METHOD 05/22/2025 6:36 AM [facility] Platelets 269 130 - 400 K/mcL LAB HEMETOLOGY METHOD 05/22/2025 6:36 AM [facility] MPV 10.9 7.0 - 11.0 FL LAB HEMETOLOGY METHOD 05/22/2025 6:36 AM [facility] NRBC 0.5 <1.0 % LAB HEMETOLOGY METHOD 05/22/2025 6:36 AM [facility] NRBC Absolute 0.06 <0.10 K/mcL LAB HEMETOLOGY METHOD 05/22/2025 6:36 AM [facility] Neutrophils Relative 84.6 % LAB HEMETOLOGY METHOD 05/22/2025 6:36 AM [facility] Lymphocytes Relative 7.9 % LAB HEMETOLOGY METHOD 05/22/2025 6:36 AM [facility] Monocytes Relative 6.0 % LAB HEMETOLOGY METHOD 05/22/2025 6:36 AM [facility] Eosinophils Relative 0.4 % LAB HEMETOLOGY METHOD 05/22/2025 6:36 AM [facility] Basophils Relative 0.1 % LAB HEMETOLOGY METHOD 05/22/2025 6:36 AM EDT [facility] Immature Granulocytes Relative 1.0 % LAB HEMETOLOGY METHOD 05/22/2025 6:36 AM EDT [facility] Neutrophils Absolute 10.63(H) 1.50 - 7.00 K/mcL LAB HEMETOLOGY METHOD 05/22/2025 6:36 AM [facility] Lymphocytes Absolute 0.99(L) 1.00 - 5.00 K/[facility] LAB HEMETOLOGY METHOD 05/22/2025 6:36 AM EDT [facility] Monocytes Absolute 0.75 0.20 - 1.00 K/mcL LAB HEMETOLOGY METHOD 05/22/2025 6:36 AM [facility] Eosinophils Absolute 0.05 0.00 - 0.50 K/mcL LAB HEMETOLOGY METHOD 05/22/2025 6:36 AM [facility] Basophils Absolute 0.01 0.00 - 0.20 K/mcL LAB HEMETOLOGY METHOD 05/22/2025 6:36 AM [facility] Immature Granulocytes Absolute 0.12(H) 0.00 - 0.03 K/mcL LAB HEMETOLOGY METHOD 05/22/2025 6:36 AM [facility] Blood Venous blood specimen / Unknown Venipuncture / Unknown 05/22/2025 5:52 AM EDT 05/22/2025 6:16 AM EDT us [employer] AZAR LAB BLOOD ORDERABLES Final R esult [facility] [address] [place] [address], * (ABNORMAL) Basic metabolic panel (05/22/2025 5:52 AM EDT) Sodium 142 133 - 145 mmol/L LAB CHEMISTRY METHOD 05/22/2025 7:40 AM EDT [facility] Potassium 5.0 3.5 - 5.5 mmol/L LAB CHEMISTRY METHOD 05/22/2025 7:40 AM [facility] Chloride 115(H) 96 - 110 mmol/L LAB CHEMISTRY METHOD 05/22/2025 7:40 AM [facility] CO2 20(L) 21 - 32 mmol/L LAB CHEMISTRY METHOD 05/22/2025 7:40 AM [facility] Anion Gap 7 3 - 11 LAB CHEMISTRY METHOD 05/22/2025 7:40 AM [facility] Glucose 69(L) 70 - 100 mg/dL LAB CHEMISTRY METHOD 05/22/2025 7:40 AM [facility] BUN 38(H) 5 - 25 mg/dL LAB CHEMISTRY METHOD 05/22/2025 7:40 AM [facility] Creatinine 3.32(H) 0.50 - 1.10 mg/dL LAB CHEMISTRY METHOD 05/22/2025 7:40 AM [facility] eGFR 14(L) >=60 mL/min/1. 73m2 LAB CHEMISTRY METHOD 05/22/2025 7:40 AM [facility] Comment:Calculation based on the Chronic Kidney Disease Epidemiology Collaboration (CKD-EPI) equation refit without adjustment for race. BUN/Creatinine Ratio 11.4 LAB CHEMISTRY METHOD 05/22/2025 7:40 AM [facility] Calcium 7.4(L) 8.5 - 10.5 mg/dL LAB CHEMISTRY METHOD 05/22/2025 7:40 AM [facility] Blood Venous blood specimen / Unknown Venipuncture / Unknown 05/22/2025 5:52 AM EDT 05/22/2025 6:15 AM EDT us [employer] AZAR LAB BLOOD ORDERABLES Final R esult [facility] [address] [place] [address], [place] [phone] * Blood Culture, Peripheral Draw #2 (05/21/2025 8:57 AM EDT) Culture, Blood No growth at 5 days LAB MICROBIOLOGY METHOD 05/26/2025 12:01 PM EDT [facility] Blood Venous blood specimen / Unknown Venipuncture / Unknown 05/21/2025 8:57 AM EDT 05/21/2025 9:03 AM EDT us Desmond Molina MD LAB MICROBIOLOGY - GENERAL O RDERABLES Final Result Performing Organization Address City/[facility]/ZIP Co de Phone Number [facility] [address] [place] [address], [place] [phone] * Blood Culture, Peripheral Draw #1 (05/21/2025 8:57 AM EDT) Culture, Blood No growth at 5 days LAB MICROBIOLOGY METHOD 05/26/2025 10:01 AM EDT [facility] Blood Venous blood specimen / Unknown Venipuncture / Unknown 05/21/2025 8:57 AM EDT 05/21/2025 9:03 AM EDT us Desmond Molina MD LAB MICROBIOLOGY - GENERAL O RDERABLES Final Result [facility] [address] [place] [address], [place] [phone] * (ABNORMAL) CBC auto differential (05/21/2025 6:13 AM EDT) WBC 14.9(H) 4.8 - 10.8 K/[facility] LAB HEMETOLOGY METHOD 05/21/2025 7:36 AM EDT [facility] RBC 3.40(L) 3.80 - 4.80 M/mcL LAB HEMETOLOGY METHOD 05/21/2025 7:36 AM [facility] Hemoglobin 9.0(L) 11.5 - 16.0 g/dL LAB HEMETOLOGY METHOD 05/21/2025 7:36 AM [facility] Hematocrit 32.1(L) 35.0 - 47.0 % LAB HEMETOLOGY METHOD 05/21/2025 7:36 AM [facility] MCV 93.6 79.0 - 98.0 FL LAB HEMETOLOGY METHOD 05/21/2025 7:36 AM [facility] MCH 26.2(L) 27.0 - 32.0 pcg LAB HEMETOLOGY METHOD 05/21/2025 7:36 AM [facility] MCHC 28.0(L) 32.0 - 37.0 g/dL LAB HEMETOLOGY METHOD 05/21/2025 7:36 AM [facility] RDW 18.4(H) 11.0 - 15.0 % LAB HEMETOLOGY METHOD 05/21/2025 7:36 AM [facility] Platelets 268 130 - 400 K/mcL LAB HEMETOLOGY METHOD 05/21/2025 7:36 AM [facility] MPV 10.7 7.0 - 11.0 FL LAB HEMETOLOGY METHOD 05/21/2025 7:36 AM [facility] NRBC 0.0 <1.0 % LAB HEMETOLOGY METHOD 05/21/2025 7:36 AM [facility] NRBC Absolute 0.00 <0.10 K/mcL LAB HEMETOLOGY METHOD 05/21/2025 7:36 AM [facility] Neutrophils Relative 83.6 % LAB HEMETOLOGY METHOD 05/21/2025 7:36 AM [facility] Lymphocytes Relative 6.7 % LAB HEMETOLOGY METHOD 05/21/2025 7:36 AM [facility] Monocytes Relative 8.7 % LAB HEMETOLOGY METHOD 05/21/2025 7:36 AM [facility] Eosinophils Relative 0.0 % LAB HEMETOLOGY METHOD 05/21/2025 7:36 AM [facility] Basophils Relative 0.1 % LAB HEMETOLOGY METHOD 05/21/2025 7:36 AM [facility] Immature Granulocytes Relative 0.9 % LAB HEMETOLOGY METHOD 05/21/2025 7:36 AM [facility] Neutrophils Absolute 12.42(H) 1.50 - 7.00 K/mcL LAB HEMETOLOGY METHOD 05/21/2025 7:36 AM [facility] Lymphocytes Absolute 0.99(L) 1.00 - 5.00 K/mcL LAB HEMETOLOGY METHOD 05/21/2025 7:36 AM [facility] Monocytes Absolute 1.30(H) 0.20 - 1.00 K/mcL LAB HEMETOLOGY METHOD 05/21/2025 7:36 AM [facility] Eosinophils Absolute 0.00 0.00 - 0.50 K/mcL LAB HEMETOLOGY METHOD 05/21/2025 7:36 AM [facility] Basophils Absolute 0.02 0.00 - 0.20 K/mcL LAB HEMETOLOGY METHOD 05/21/2025 7:36 AM [facility] Immature Granulocytes Absolute 0.14(H) 0.00 - 0.03 K/mcL LAB HEMETOLOGY METHOD 05/21/2025 7:36 AM [facility] Blood Venous blood specimen / Unknown Venipuncture / Unknown 05/21/2025 6:13 AM EDT 05/21/2025 7:19 AM EDT us Desmond Molina MD LAB BLOOD ORDERABLES Final R esult Performing Organization Address [facility]/ZIP Co de Phone Number [facility] [address] [place] [address], [place] [phone] * (ABNORMAL) Activated partial thromboplastin time (05/21/2025 6:13 AM EDT) aPTT 60.7(H) 24.1 - 39.3 sec LAB COAGULATION METHOD 05/21/2025 7:49 AM EDT [facility] Blood Venous blood specimen / Unknown Venipuncture / Unknown 05/21/2025 6:13 AM EDT 05/21/2025 7:20 AM EDT us Desmond Molina MD LAB BLOOD ORDERABLES Final R esult Performing Organization Address [facility]/ZIP Co de Phone Number [facility] [address] [place] [address], [place] [phone] * (ABNORMAL) Basic metabolic panel (05/21/2025 6:13 AM EDT) [facility] Sodium 144 133 - 145 mmol/L LAB CHEMISTRY METHOD 05/21/2025 8:04 AM [facility] Potassium 4.7 3.5 - 5.5 mmol/L LAB CHEMISTRY METHOD 05/21/2025 8:04 AM [facility] Chloride 117(H) 96 - 110 mmol/L LAB CHEMISTRY METHOD 05/21/2025 8:04 AM [facility] CO2 20(L) 21 - 32 mmol/L LAB CHEMISTRY METHOD 05/21/2025 8:04 AM [facility] Anion Gap 7 3 - 11 LAB CHEMISTRY METHOD 05/21/2025 8:04 AM [facility] Glucose 258(H) 70 - 100 mg/dL LAB CHEMISTRY METHOD 05/21/2025 8:04 AM EDT [facility] BUN 31(H) 5 - 25 mg/dL LAB CHEMISTRY METHOD 05/21/2025 8:04 AM EDT [facility] Creatinine 2.79(H) 0.50 - 1.10 mg/dL LAB CHEMISTRY METHOD 05/21/2025 8:04 AM EDT [facility] eGFR 17(L) >=60 mL/min/1. 73m2 LAB CHEMISTRY METHOD 05/21/2025 8:04 AM EDT [facility] Comment:Calculation based on the Chronic Kidney Disease Epidemiology Collaboration (CKD-EPI) equation refit without adjustment for race. BUN/Creatinine Ratio 11.1 LAB CHEMISTRY METHOD 05/21/2025 8:04 AM EDT [facility] Calcium 7.1(L) 8.5 - 10.5 mg/dL LAB CHEMISTRY METHOD 05/21/2025 8:04 AM EDT [facility] Blood Venous blood specimen / Unknown Venipuncture / Unknown 05/21/2025 6:13 AM EDT 05/21/2025 7:20 AM EDT Desmond Molina MD LAB BLOOD ORDERABLES Final R esult Performing Organization Address City/[facility] Co de Phone Number [facility] [address] [place] [address], * Creatinine, urine, random (05/21/2025 5:09 AM EDT) Creatinine, Urine <13.0 mg/dL LAB CHEMISTRY METHOD 05/21/2025 7:43 AM EDT [facility] Urine Urine specimen from urethra / Unknown Non-blood Collection / Unknown 05/21/2025 5:09 AM EDT 05/21/2025 7:07 AM EDT [facility] LAB URINE ORDERABLES Final R esult [facility] [address] [place] [address], [place] [phone] * (ABNORMAL) Osmolality, urine (05/21/2025 5:09 AM EDT) Osmolality, Urine 252(L) 300 - 1,300 mOsm/kg LAB CHEMISTRY METHOD 05/21/2025 8:12 AM EDT [facility] Urine Urine specimen obtained by clean catch procedure / Unknown Non-blood Collection / Unknown 05/21/2025 5:09 AM EDT 05/21/2025 7:07 AM EDT [facility] LAB URINE ORDERABLES Final R esult Performing Organization Address [facility] Co de Phone Number [facility] [address] [place] [address], [place] [phone] * Sodium, urine, random (05/21/2025 5:09 AM EDT) Sodium, Ur 96 mmol/L LAB CHEMISTRY METHOD 05/21/2025 7:38 AM EDT [facility] Urine Urine specimen from urethra / Unknown Non-blood Collection / Unknown 05/21/2025 5:09 AM EDT 05/21/2025 7:07 AM EDT [facility] LAB URINE ORDERABLES Final R esult Performing Organization Address [facility] Co de Phone Number [facility] [address] [place] [address], [place] [phone] * Ponce urine culture tube (05/21/2025 5:09 AM EDT) Extra Tube Hold for add-ons. 05/21/2025 9:01 AM EDT [facility] Comment:Auto resulted. Urine Urine specimen obtained by clean catch procedure / Unknown Non-blood Collection / Unknown 05/21/2025 5:09 AM EDT 05/21/2025 7:07 AM EDT us Ivania Vidal MD LAB URINE ORDERABLES Final Result [facility] [address] [place] [address], [place] [phone] * (ABNORMAL) Urinalysis with reflex microscopic and culture (05/21/2025 5:09 AM EDT) [place] Urine 1.010 1.003 - 1.030 LAB URINALYSIS - AUTOMATED METHOD 05/21/2025 7:39 AM [facility] pH, Urine 6.0 5.0 - 8.0 pH LAB URINALYSIS - AUTOMATED METHOD 05/21/2025 7:39 AM [facility] Leukocytes, Urine Large(A) Negative LAB URINALYSIS - AUTOMATED METHOD 05/21/2025 7:39 AM [facility] Nitrite, Urine Positive(A) Negative LAB URINALYSIS - AUTOMATED METHOD 05/21/2025 7:39 AM [facility] Protein, Urine 100(A) <=Trace mg/dL LAB URINALYSIS - AUTOMATED METHOD 05/21/2025 7:39 AM [facility] Glucose, Urine 250(A) Negative mg/dL LAB URINALYSIS - AUTOMATED METHOD 05/21/2025 7:39 AM [facility] Ketones, Urine Negative Negative mg/dL LAB URINALYSIS - AUTOMATED METHOD 05/21/2025 7:39 AM [facility] Urobilinogen , Urine 0.2 0.2 - 1.0 mg/dL LAB URINALYSIS - AUTOMATED METHOD 05/21/2025 7:39 AM [facility] Bilirubin, Urine Negative Negative LAB URINALYSIS - AUTOMATED METHOD 05/21/2025 7:39 AM EDT [facility] Blood, Urine Large(A) Negative LAB URINALYSIS - AUTOMATED METHOD 05/21/2025 7:39 AM T [facility] RBC, Urine 2.0 0 - 4 /HPF LAB URINALYSIS - AUTOMATED METHOD 05/21/2025 7:39 AM [facility] WBC, Urine 300.0(H) 0 - 4 /HPF LAB URINALYSIS - AUTOMATED METHOD 05/21/2025 7:39 AM EDT [facility] Squamous Epithelial, Urine 10 0 - 60 /LPF LAB URINALYSIS - AUTOMATED METHOD 05/21/2025 7:39 AM [facility] Bacteria, Urine Many(A) Negative /HPF LAB URINALYSIS - AUTOMATED METHOD 05/21/2025 7:39 AM [facility] Hyaline Casts, Urine 2.0 0 - 3 /LPF LAB URINALYSIS - AUTOMATED METHOD 05/21/2025 7:39 AM [facility] Urine Urine specimen obtained by clean catch procedure / Unknown Non-blood Collection / Unknown 05/21/2025 5:09 AM EDT 05/21/2025 7:07 AM EDT Ivania Vidal MD LAB URINE ORDERABLES Final Result [facility] [address] [place] [address], * (ABNORMAL) POCT Glucose, blood (05/21/2025 3:55 AM EDT) [facility] Glucose POCT 298(H) 70 - 100 mg/dL 05/21/2025 3:55 AM EDT [facility] Blood Capillary blood specimen / Unknown 05/21/2025 3:55 AM EDT 05/21/2025 3:56 AM EDT us Desmond Molina MD LAB POINT OF CARE TE ST DOCKED DEVICE UNSOLICITED RESULTS Final Result Performing Organization Address [facility] Co de Phone Number [facility] [address] [place] [address], [place] [phone] * (ABNORMAL) Activated partial thromboplastin time (05/20/2025 11:00 PM EDT) aPTT 54.2(H) 24.1 - 39.3 sec LAB COAGULATION METHOD 05/21/2025 12:16 AM EDT [facility] Blood Venous blood specimen / Unknown Venipuncture / Unknown 05/20/2025 11:00 PM EDT 05/20/2025 11:38 PM EDT us Desmond Molina MD LAB BLOOD ORDERABLES Final R esult Performing Organization Address [facility] de Phone Number [facility] [address] [place] [address], [place] [phone] * Heparin and low molecular weight anti Xa level (05/20/2025 11:00 PM EDT) [facility] Heparin Anti-Xa 0.36 0.30 - 0.70 I Unit/mL LAB COAGULATION METHOD 05/21/2025 12:03 AM EDT [facility] Blood Venous blood specimen / Unknown Venipuncture / Unknown 05/20/2025 11:00 PM EDT 05/20/2025 11:38 PM EDT Narrative [facility] - 05/21/2025 12:03 AM EDT Therapeutic range listed is for Unfractionated Heparin. LMW Heparin therapeutic range: 0.50-1.20 IU/mL us Desmond Molina MD LAB BLOOD ORDERABLES Final R esult Performing Organization Address [facility]/ZIP Co de Phone Number [facility] [address] [place] [address], * (ABNORMAL) Heparin and low molecular weight anti Xa level (05/20/2025 4:36 PM EDT) [facility] Heparin Anti-Xa 0.04(L) 0.30 - 0.70 I Unit/mL LAB COAGULATION METHOD 05/20/2025 5:17 PM EDT [facility] Blood Venous blood specimen / Unknown Venipuncture / Unknown 05/20/2025 4:36 PM EDT 05/20/2025 5:01 PM EDT Narrative [facility] - 05/20/2025 5:17 PM EDT Therapeutic range listed is for Unfractionated Heparin. LMW Heparin therapeutic range: 0.50-1.20 IU/mL Desmond Molina MD LAB BLOOD ORDERABLES Final R esult [facility] [address] [place] [address], * Tissue exam (05/20/2025 12:35 PM EDT) [facility] Addendum Breast Carcinoma Biomarkers: NOTE: The results should be taken with caution as they were performed on decalcified tissue. Original tumor is morphologically similar, ER Positive. Estrogen Receptor: Negative Internal controls not applicable Progesterone Receptor: Negative Internal controls not applicable HER2: Negative (1+) All external controls stained appropriately Patients with breast cancers that are HER2 IHC 3+ or IHC 2+/PORTILLO amplified may be eligible for several therapies that disrupt HER2 signaling pathways. Invasive breast cancers that test 'HER2-negative' (IHC 0, 1+ or 2+/PORTILLO not-amplified) are more specifically considered 'HER2-negative for protein overexpression/gene amplification' since non-overexpressed levels of the HER2 protein may be present in these cases. Patients with breast cancers that are HER2 IHC 1+ or IHC 2+/PORTILLO not amplified may be eligible for a treatment that targets non-amplified/non-ove rexpressed levels of HER2 expression for cytotoxic drug delivery (IHC 0 results do not result in eligibility currently). FFPE Block: A2 Cold Ischemia and Fixation Times: Does not meet requirements specified in the latest version of the ASCO/CAP guidelines These tests have not been validated for use on decalcified tissue, non-formalin fixed tissue, or tissue fixed outside of the ASCO/CAP guidelines. ASCO/CAP criteria for evaluation: ER: Staining evaluation ER: Low positive=1-10% positive nuclei, Positive >10% positive nuclei MT: Staining evaluation MT: Positive= >1% positive nuclei. HER2: Staining evaluation for HER2 (ASCO/CAP GUIDELINES 2018): - NEGATIVE (0): No staining or incomplete barely perceptible staining in <10 % of cells. - NEGATIVE (1+): Incomplete barely perceptible staining in >10 % of cells. - EQUIVOCAL (2+): Strong complete staining in 10% or less of cells or weak or moderate staining in >10 % cells. - POSITIVE (3+): Strong complete staining in more than 10% of cells. Detection system: Polymer HRP, [employer] [facility]-developed tests In Vitro Diagnostic: ER clone [id number] [employer], MT clone [id number] [employer] Analyte specific reagents: HER2 clone [id number] [employer] 5 4:40 PM EDT [facility] Addendum electronically signed by Radha Tejeda MD on 05/24/2025 at 1640 EDT Final Diagnosis Bone, left iliac, biopsy: Metastatic carcinoma, compatible with breast primary. 5 4:40 PM EDT [facility] at 1625 EDT Comment Immunohistochemical stains for GATA3 and cytokeratin ISAK are performed on not decalcified specimen (A1) and are interpreted as negative for metastatic carcinoma. Block A2 (decalcified) contains areas of concern not present on A1. Immunohistochemical stain for GATA3 is interpreted as positive, supporting the above diagnosis. Control stains appropriately. Additionally, patient's prior specimen [id number] is compared and is morphologically similar, further supporting metastasis from the same. Prognostic markers will be attempted on block A2, however negative staining should be interpreted with caution due to decalcification. Rig Supervisor slide(s) from this case have been presented at Anatomic Pathology Intradepartmental Review Conference on 05/23/25. 4:40 PM EDT [facility] Gross Description A. Bone, left iliac: Labeled LT iliac bone . Received in forms a 1.5 a 1.0 x 0.2 cm aggregate of soft to hard porter-white to pink portions of bone which are wrapped in paper and submitted in toto in two cassettes multiple pieces each (one H&E and +10 unstained slides for potential immunohistochemical stains; conserving tissue and one H&E), conserving tissue on each block. 1-tissue not requiring decalcification, multiple pieces 2-tissue requiring decalcification in Immunocal, multiple pieces Time put in formalin (cold ischemia ends): 12:39 PM 05/20/2025 Time tissue exits final stage of formalin on tissue processor: A1 12:00 AM 05/21/2025, A2: 12:00 AM 05/22/2025 Total fixation time (Ideally greater than 6 hours and less than 72 hours): A1: Approximately 11 hours, A2: Approximately 35 hours TS 4:40 PM EDT [facility] Disclaimer NOTE: The immunohistochemical tests and in situ hybridization tests were developed and their performance characteristics were determined by [facility]. They have not been cleared or approved by the U.S. Food and Drug Administration. The FDA has determined that such clearance or approval is not necessary. These tests are used for clinical purposes. They should not be regarded as investigational or for research. This laboratory is certified under the Clinical Laboratory Improvement Amendments of 1988 (CLIA) as qualified to perform high complexity clinical laboratory testing. (controls appropriate) Unless otherwise specified, all tissue is 10% NB formalin fixed and paraffin embedded. 4:40 PM EDT [facility] Bone Bone structure / Unknown 05/20/2025 12:35 PM EDT 05/20/2025 12:46 PM EDT Rahul Loyola MD LAB PATHOLOGY ORDERABLES Edited Result - Final [facility] [address], [place] [address] [phone] * IR Bx Bone Trocar/Ndl Deep (05/20/2025 12:28 PM EDT) Anatomical Region Laterality Modality N/A Interventional R adiology 05/20/2025 2:29 PM EDT Impressions 05/20/2025 2:[address]-guided bone biopsy performed directed toward left iliac crest. -------- FINAL REPORT -------- Dictated By: Rahul Loyola Dictated Date: 05/20/2025 14:29 ET Assigned Physician: Rahul Loyola Reviewed and Electronically Signed By: Rahul Loyola Signed Date: 05/20/2025 14:31 ET Workstation ID: [id number] Transcribed By: Self Edit Transcribed Date: 05/20/2025 14:29 ET Narrative 05/20/2025 2:31 PM EDT History: Osseous metastatic disease PROCEDURE: Biopsy performed in the CT IR suite with moderate sedation provided utilizing divided doses of IV fentanyl and Versed. Independent monitoring by nursing personnel in the IR suite. Sedation maintained 30 minutes. Medication decisions directed by undersigned IR. Preliminary scanning performed with patient prone to select optimal site for sampling. Skin overlying the left iliac crest marked then prepped and draped sterilely with patient prone. Local anesthetic placed. 11 G Argon T-Tamika bone biopsy needle advanced into the iliac crest. Core of bone retrieved then placed into formalin. Procedure well tolerated. No immediate complication. FINDINGS: Spot image of the pelvis shows mixed lytic/sclerotic irregularity throughout the osseous structures. Biopsy needle is passed into the iliac crest on the left. Procedure Note Rahul Loyola MD - 05/20/2025 History: Osseous metastatic disease PROCEDURE: Biopsy performed in the CT IR suite with moderate sedationprovided utilizing divided doses of IV fentanyl and Versed. Independentmonitoring by nursing personnel in the IR suite. Sedation maintained 30minutes. Medication decisions directed by undersigned IR. Preliminary scanning performed with patient prone to select optimal sitefor sampling. Skin overlying the left iliac crest marked then prepped anddraped sterilely with patient prone. Local anesthetic placed. 11 G ArgonT-Tamika bone biopsy needle advanced into the iliac crest. Core of boneretrieved then placed into formalin. Procedure well tolerated. No immediate complication. FINDINGS: Spot image of the pelvis shows mixed lytic/scleroticirregularity throughout the osseous structures. Biopsy needle is passedinto the iliac crest on the left. IMPRESSION: CT-guided bone biopsy performed directed toward left iliac crest. -------- FINAL REPORT -------- Dictated By: Rahul Loyola Dictated Date: 05/20/2025 14:29 ET Assigned Physician: Rahul Loyola Reviewed and Electronically Signed By: Rahul Loyola Signed Date: 05/20/2025 14:31 ET Workstation ID: [id number] Transcribed By: Self Edit Transcribed Date: 05/20/2025 14:29 ET us Gladis Mcgovern MD IMG IR PROCEDURES Final Result * Lavender tube (05/20/2025 7:46 AM EDT) Extra Tube Hold for add-ons. 05/20/2025 9:01 AM EDT [facility] Comment:Auto resulted. Blood Venous blood specimen / Unknown Venipuncture / Unknown 05/20/2025 7:46 AM EDT 05/20/2025 7:52 AM EDT us Desmond Molina MD LAB BLOOD ORDERABLES Final R esult [facility] [address] [place] [address], [place] [phone] * Magnesium (05/20/2025 7:46 AM EDT) Magnesium 2.1 1.9 - 2.6 mg/dL LAB CHEMISTRY METHOD 05/20/2025 12:58 PM EDT [facility] Blood Venous blood specimen / Unknown Venipuncture / Unknown 05/20/2025 7:46 AM EDT 05/20/2025 7:51 AM EDT us Desmond Molina MD LAB BLOOD ORDERABLES Final R esult Performing Organization Address City/[facility]/ZIP Co de Phone Number [facility] [address] [place] [address], * (ABNORMAL) Hepatic function panel (05/20/2025 7:46 AM EDT) Total Protein 6.2 6.0 - 8.0 g/dL LAB CHEMISTRY METHOD 05/20/2025 12:58 PM EDT [facility] Albumin 1.5(L) 3.2 - 5.0 g/dL LAB CHEMISTRY METHOD 05/20/2025 12:58 PM EDT [facility] Total Bilirubin 0.4 0.0 - 1.4 mg/dL LAB CHEMISTRY METHOD 05/20/2025 12:58 PM EDT [facility] Bilirubin, Direct 0.2 0.0 - 0.3 mg/dL LAB CHEMISTRY METHOD 05/20/2025 12:58 PM EDT [facility] Bilirubin, Indirect 0.2 0.0 - 1.1 mg/dL LAB CHEMISTRY METHOD 05/20/2025 12:58 PM EDT [facility] ALT (SGPT) 23 10 - 60 unit/L LAB CHEMISTRY METHOD 05/20/2025 12:58 PM T [facility] AST (SGOT) 235(H) 10 - 42 unit/L LAB CHEMISTRY METHOD 05/20/2025 12:58 PM EDT [facility] Alkaline Phosphatase 367(H) 42 - 121 unit/L LAB CHEMISTRY METHOD 05/20/2025 12:58 PM EDT [facility] Blood Venous blood specimen / Unknown Venipuncture / Unknown 05/20/2025 7:46 AM EDT 05/20/2025 7:51 AM EDT us Estate Tracy AZAR LAB BLOOD ORDERABLES Final R esult [facility] [address] [place] [address], * (ABNORMAL) Basic metabolic panel (05/20/2025 7:46 AM EDT) Sodium 146(H) 133 - 145 mmol/L LAB CHEMISTRY METHOD [facility]25 [facility] Potassium 4.2 3.5 - 5.5 mmol/L LAB CHEMISTRY METHOD 05/20/2025 12:58 PM [facility] Chloride 119(H) 96 - 110 mmol/L LAB CHEMISTRY METHOD 05/20/2025 12:58 PM [facility] CO2 20(L) 21 - 32 mmol/L LAB CHEMISTRY METHOD 05/20/2025 12:58 PM [facility] Anion Gap 7 3 - 11 LAB CHEMISTRY METHOD 05/20/2025 12:58 PM [facility] Glucose 200(H) 70 - 100 mg/dL LAB CHEMISTRY METHOD 05/20/2025 12:58 PM [facility] BUN 22 5 - 25 mg/dL LAB CHEMISTRY METHOD 05/20/2025 12:58 PM [facility] Creatinine 2.29(H) 0.50 - 1.10 mg/dL LAB CHEMISTRY METHOD 05/20/2025 12:58 PM [facility] eGFR 21(L) >=60 mL/min/1. 73m2 LAB CHEMISTRY METHOD 05/20/2025 12:58 PM [facility] Comment:Calculation based on the Chronic Kidney Disease Epidemiology Collaboration (CKD-EPI) equation refit without adjustment for race. BUN/Creatinine Ratio 9.6 LAB CHEMISTRY METHOD 05/20/2025 12:58 PM [facility] Calcium 7.9(L) 8.5 - 10.5 mg/dL LAB CHEMISTRY METHOD 05/20/2025 12:58 PM [facility] Blood Venous blood specimen / Unknown Venipuncture / Unknown 05/20/2025 7:46 AM EDT 05/20/2025 7:51 AM EDT us Desmond Molina MD LAB BLOOD ORDERABLES Final R esult Performing Organization Address City/[facility]/ZIP Co de Phone Number [facility] [address] [place] [address], [place] [phone] * Light blue tube (05/20/2025 7:45 AM EDT) Pathologist [facility] Extra Tube Hold for add-ons. 05/20/2025 9:01 AM EDT [facility] Comment:Auto resulted. Blood Venous blood specimen / Unknown 05/20/2025 7:45 AM EDT 05/20/2025 7:52 AM EDT us Desmond Molina MD LAB BLOOD ORDERABLES Final R esult Performing Organization Address City/[facility]/ZIP Co de Phone Number [facility] [address] [place] [address], [place] [phone] * (ABNORMAL) CBC auto differential (05/20/2025 5:36 AM EDT) Pathologist [facility] WBC 12.1(H) 4.8 - 10.8 K/[facility] LAB HEMETOLOGY METHOD 05/20/2025 6:30 AM EDT [facility] RBC 3.80 3.80 - 4.80 M/[facility] LAB HEMETOLOGY METHOD 05/20/2025 6:30 AM EDT [facility] Hemoglobin 10.0(L) 11.5 - 16.0 g/dL LAB HEMETOLOGY METHOD 05/20/2025 6:30 AM EDT [facility] Hematocrit 36.5 35.0 - 47.0 % LAB HEMETOLOGY METHOD 05/20/2025 6:30 AM [facility] MCV 96.3 79.0 - 98.0 FL LAB HEMETOLOGY METHOD 05/20/2025 6:30 AM [facility] MCH 26.4(L) 27.0 - 32.0 pcg LAB HEMETOLOGY METHOD 05/20/2025 6:30 AM [facility] MCHC 27.4(L) 32.0 - 37.0 g/dL LAB HEMETOLOGY METHOD 05/20/2025 6:30 AM [facility] RDW 18.1(H) 11.0 - 15.0 % LAB HEMETOLOGY METHOD 05/20/2025 6:30 AM [facility] Platelets 209 130 - 400 K/mcL LAB HEMETOLOGY METHOD 05/20/2025 6:30 AM [facility] MPV 10.6 7.0 - 11.0 FL LAB HEMETOLOGY METHOD 05/20/2025 6:30 AM [facility] NRBC 0.0 <1.0 % LAB HEMETOLOGY METHOD 05/20/2025 6:30 AM [facility] NRBC Absolute 0.00 <0.10 K/mcL LAB HEMETOLOGY METHOD 05/20/2025 6:30 AM [facility] Neutrophils Relative 69.3 % LAB HEMETOLOGY METHOD 05/20/2025 6:30 AM [facility] Lymphocytes Relative 17.0 % LAB HEMETOLOGY METHOD 05/20/2025 6:30 AM [facility] Monocytes Relative 11.9 % LAB HEMETOLOGY METHOD 05/20/2025 6:30 AM [facility] Eosinophils Relative 0.2 % LAB HEMETOLOGY METHOD 05/20/2025 6:30 AM [facility] Basophils Relative 0.3 % LAB HEMETOLOGY METHOD 05/20/2025 6:30 AM EDT [facility] Immature Granulocytes Relative 1.3 % LAB HEMETOLOGY METHOD 05/20/2025 6:30 AM EDT [facility] Neutrophils Absolute 8.38(H) 1.50 - 7.00 K/mcL LAB HEMETOLOGY METHOD 05/20/2025 6:30 AM EDT [facility] Lymphocytes Absolute 2.06 1.00 - 5.00 K/mcL LAB HEMETOLOGY METHOD 05/20/2025 6:30 AM EDT [facility] Monocytes Absolute 1.44(H) 0.20 - 1.00 K/mcL LAB HEMETOLOGY METHOD 05/20/2025 6:30 AM EDT [facility] Eosinophils Absolute 0.02 0.00 - 0.50 K/mcL LAB HEMETOLOGY METHOD 05/20/2025 6:30 AM EDT [facility] Basophils Absolute 0.04 0.00 - 0.20 K/mcL LAB HEMETOLOGY METHOD 05/20/2025 6:30 AM EDT [facility] Immature Granulocytes Absolute 0.16(H) 0.00 - 0.03 K/mcL LAB HEMETOLOGY METHOD 05/20/2025 6:30 AM EDT [facility] Blood Venous blood specimen / Unknown Venipuncture / Unknown 05/20/2025 5:36 AM EDT 05/20/2025 6:10 AM EDT us [employer] AZAR LAB BLOOD ORDERABLES Final R esult [facility] [address] [place] [address], * (ABNORMAL) CBC - Every 3 Days (05/20/2025 5:36 AM EDT) WBC 12.1(H) 4.8 - 10.8 K/mcL LAB HEMETOLOGY METHOD 05/20/2025 6:30 AM [facility] RBC 3.80 3.80 - 4.80 M/mcL LAB HEMETOLOGY METHOD 05/20/2025 6:30 AM [facility] Hemoglobin 10.0(L) 11.5 - 16.0 g/dL LAB HEMETOLOGY METHOD 05/20/2025 6:30 AM [facility] Hematocrit 36.5 35.0 - 47.0 % LAB HEMETOLOGY METHOD 05/20/2025 6:30 AM [facility] MCV 96.3 79.0 - 98.0 FL LAB HEMETOLOGY METHOD 05/20/2025 6:30 AM [facility] MCH 26.4(L) 27.0 - 32.0 pcg LAB HEMETOLOGY METHOD 05/20/2025 6:30 AM [facility] MCHC 27.4(L) 32.0 - 37.0 g/dL LAB HEMETOLOGY METHOD 05/20/2025 6:30 AM [facility] RDW 18.1(H) 11.0 - 15.0 % LAB HEMETOLOGY METHOD 05/20/2025 6:30 AM [facility] Platelets 209 130 - 400 K/mcL LAB HEMETOLOGY METHOD 05/20/2025 6:30 AM [facility] MPV 10.6 7.0 - 11.0 FL LAB HEMETOLOGY METHOD 05/20/2025 6:30 AM [facility] NRBC 0.0 <1.0 % LAB HEMETOLOGY METHOD 05/20/2025 6:30 AM [facility] NRBC Absolute 0.00 <0.10 K/mcL LAB HEMETOLOGY METHOD 05/20/2025 6:30 AM [facility] Blood Venous blood specimen / Unknown Venipuncture / Unknown 05/20/2025 5:36 AM EDT 05/20/2025 6:10 AM EDT Ernesto Lynch MD LAB BLOOD ORDERABLES Final Re sult [facility] [address] [place] [address], * (ABNORMAL) Basic metabolic panel (05/19/2025 3:54 PM EDT) Sodium 145 133 - 145 mmol/L LAB CHEMISTRY METHOD 05/19/2025 4:58 PM [facility] Potassium 3.7 3.5 - 5.5 mmol/L LAB CHEMISTRY METHOD 05/19/2025 4:58 PM [facility] Chloride 115(H) 96 - 110 mmol/L LAB CHEMISTRY METHOD 05/19/2025 4:58 PM T [facility] CO2 25 21 - 32 mmol/L LAB CHEMISTRY METHOD 05/19/2025 4:58 PM [facility] Anion Gap 5 3 - 11 LAB CHEMISTRY METHOD 05/19/2025 4:58 PM [facility] Glucose 169(H) 70 - 100 mg/dL LAB CHEMISTRY METHOD 05/19/2025 4:58 PM [facility] BUN 14 5 - 25 mg/dL LAB CHEMISTRY METHOD 05/19/2025 4:58 PM [facility] Creatinine 1.15(H) 0.50 - 1.10 mg/dL LAB CHEMISTRY METHOD 05/19/2025 4:58 PM [facility] eGFR 48(L) >=60 mL/min/1. 73m2 LAB CHEMISTRY METHOD 05/19/2025 4:58 PM [facility] Comment:Calculation based on the Chronic Kidney Disease Epidemiology Collaboration (CKD-EPI) equation refit without adjustment for race. BUN/Creatinine Ratio 12.2 LAB CHEMISTRY METHOD 05/19/2025 4:58 PM EDT [facility] Calcium 7.9(L) 8.5 - 10.5 mg/dL LAB CHEMISTRY METHOD 05/19/2025 4:58 PM EDT [facility] Blood Venous blood specimen / Unknown Venipuncture / Unknown 05/19/2025 3:54 PM EDT 05/19/2025 4:24 PM EDT us Desmond Molina MD LAB BLOOD ORDERABLES Final R esult [facility] [address] [place] [address], [place] [phone] * Lavender tube (05/19/2025 5:37 AM EDT) Extra Tube Hold for add-ons. 05/19/2025 8:01 AM EDT [facility] Comment:Auto resulted. Blood Venous blood specimen / Unknown Venipuncture / Unknown 05/19/2025 5:37 AM EDT 05/19/2025 6:17 AM EDT us Desmond Molina MD LAB BLOOD ORDERABLES Final R esult [facility] [address] [place] [address], [place] [phone] * (ABNORMAL) Activated Partial Thromboplastin Time - Every 6 Hours (05/19/2025 5:37 AM EDT) aPTT 55.2(H) 24.1 - 39.3 sec LAB COAGULATION METHOD 05/19/2025 6:43 AM EDT [facility] Blood Venous blood specimen / Unknown Venipuncture / Unknown 05/19/2025 5:37 AM EDT 05/19/2025 6:15 AM EDT us Ernesto Lynch MD LAB BLOOD ORDERABLES Final Re sult Performing Organization Address City/[facility]/ZIP Co de Phone Number [facility] [address] [place] [address], [place] [phone] * Magnesium (05/19/2025 5:37 AM EDT) [facility] Magnesium 2.1 1.9 - 2.6 mg/dL LAB CHEMISTRY METHOD 05/19/2025 8:47 AM EDT [facility] Blood Venous blood specimen / Unknown Venipuncture / Unknown 05/19/2025 5:37 AM EDT 05/19/2025 6:15 AM EDT Ernesto Lynch MD LAB BLOOD ORDERABLES Final Re sult Performing Organization Address [facility]/ZIP Co de Phone Number [facility] [address] [place] [address], [place] [phone] * (ABNORMAL) Basic metabolic panel (05/19/2025 5:37 AM EDT) [facility] Sodium 146(H) 133 - 145 mmol/L LAB CHEMISTRY METHOD 05/19/2025 8:48 AM EDT [facility] Potassium 2.7(LL) 3.5 - 5.5 mmol/L LAB CHEMISTRY METHOD 05/19/2025 8:48 AM EDT [facility] Chloride 114(H) 96 - 110 mmol/L LAB CHEMISTRY METHOD 05/19/2025 8:48 AM EDT [facility] CO2 26 21 - 32 mmol/L LAB CHEMISTRY METHOD 05/19/2025 8:48 AM EDT [facility] Anion Gap 6 3 - 11 LAB CHEMISTRY METHOD 05/19/2025 8:48 AM EDT [facility] Glucose 119(H) 70 - 100 mg/dL LAB CHEMISTRY METHOD 05/19/2025 8:48 AM EDT [facility] BUN 10 5 - 25 mg/dL LAB CHEMISTRY METHOD 05/19/2025 8:48 AM EDT [facility] Creatinine 0.77 0.50 - 1.10 mg/dL LAB CHEMISTRY METHOD 05/19/2025 8:48 AM EDT [facility] eGFR 78 >=60 mL/min/1. 73m2 LAB CHEMISTRY METHOD 05/19/2025 8:48 AM EDT [facility] Comment:Calculation based on the Chronic Kidney Disease Epidemiology Collaboration (CKD-EPI) equation refit without adjustment for race. BUN/Creatinine Ratio 13.0 LAB CHEMISTRY METHOD 05/19/2025 8:48 AM EDT [facility] Calcium 8.3(L) 8.5 - 10.5 mg/dL LAB CHEMISTRY METHOD 05/19/2025 8:48 AM EDT [facility] Blood Venous blood specimen / Unknown Venipuncture / Unknown 05/19/2025 5:37 AM EDT 05/19/2025 6:15 AM EDT us Ernesto Lynch MD LAB BLOOD ORDERABLES Final Re sult [facility] [address] [place] [address], * XR Abdomen 1 View (05/18/2025 3:33 PM EDT) Anatomical Region Laterality Modality Body Radiographic Steph ging 05/18/2025 3:37 PM EDT Impressions 05/18/2025 3:42 PM EDT Nonspecific bowel gas pattern. Mild scattered stool in the right colon. -------- FINAL REPORT -------- Dictated By: Jay Varela Dictated Date: 05/18/2025 15:37 ET Assigned Physician: Jay Vaerla Reviewed and Electronically Signed By: Jay Varela Signed Date: 05/18/2025 15:42 ET Workstation ID: [id number] Transcribed By: Self Edit Transcribed Date: 05/18/2025 15:37 ET Narrative 05/18/2025 3:42 PM EDT EXAMINATION: Abdomen one view. CLINICAL INDICATION: Weakness and unknown primary. COMPARISON: CT abdomen and pelvis 05/16/2025. FINDINGS: There is mild degenerative changes with spondylosis throughout lumbar spine. Visualized bones are slightly heterogenous as mentioned on the preceding CT chest exam. There is nonspecific bowel gas pattern with scattered stool in the right colon. There is no organomegaly. Procedure Note Jay Varela MD - 05/18/2025 EXAMINATION: Abdomen one view. CLINICAL INDICATION: Weakness and unknown primary. COMPARISON: CT abdomen and pelvis 05/16/2025. FINDINGS: There is mild degenerative changes with spondylosis throughoutlumbar spine. Visualized bones are slightly heterogenous as mentioned onthe preceding CT chest exam. There is nonspecific bowel gas pattern withscattered stool in the right colon. There is no organomegaly. IMPRESSION: Nonspecific bowel gas pattern. Mild scattered stool in the right colon. -------- FINAL REPORT -------- Dictated By: Jay Varela Dictated Date: 05/18/2025 15:37 ET Assigned Physician: Jay Varela Reviewed and Electronically Signed By: Jay Varela Signed Date: 05/18/2025 15:42 ET Workstation ID: [id number] Transcribed By: Self Edit Transcribed Date: 05/18/2025 15:37 ET us Ernesto Lynch MD IMG XR PROCEDURES Final Resul t * MR Brain wo and w Contrast (05/18/2025 2:01 PM EDT) Anatomical Region Laterality Modality Head and Neck Magnetic Resonan ce 05/19/2025 8:33 AM EDT Impressions 05/19/2025 8:33 AM EDT No acute intracranial abnormality. Several small calvarial metastatic lesions are suspected. Chronic intracranial changes. This document has been electronically signed by: Jorge Ramirez MD on 05/19/2025 08:33:02 Narrative 05/19/2025 8:33 AM EDT INDICATION: Brain metastases suspected MR Brain with and without gadolinium Comparison: CT - CT HEAD WO CONTRAST - 05/15/25 19:18 EDT Findings: No restricted diffusion. No intra-axial mass or hemorrhage. No midline shift. No hydrocephalus. Vascular flow voids are intact. There is T2 signal prolongation in the periventricular white matter and diffuse volume loss. Several small enhancing calvarial lesions are present, for example coronal 215. The orbits are normal. The sinuses and mastoid air cells are clear. No focal bone lesion. Procedure Note Jorge Ramirez MD - 05/19/2025 INDICATION: Brain metastases suspected MR Brain with and without gadolinium Comparison: CT - CT HEAD WO CONTRAST - 05/15/25 19:18 EDT Findings: No restricted diffusion. No intra-axial mass or hemorrhage. No midline shift. No hydrocephalus. Vascular flow voids are intact. There is T2 signal prolongation in the periventricular white matter and diffuse volume loss. Several small enhancing calvarial lesions are present, for examplecoronal 215. The orbits are normal. The sinuses and mastoid air cells are clear. No focal bone lesion. IMPRESSION: No acute intracranial abnormality. Several small calvarial metastatic lesions are suspected. Chronic intracranial changes. This document has been electronically signed by: Jorge Ramirez MD on 05/19/2025 08:33:02 us Ernesto Lynch MD IMG MRI PROCEDURES Final Resu lt * Lavender tube (05/18/2025 10:11 AM EDT) Extra Tube Hold for add-ons. 05/18/2025 12:01 PM EDT [facility] Comment:Auto resulted. Blood Venous blood specimen / Unknown Venipuncture / Unknown 05/18/2025 10:11 AM EDT 05/18/2025 10:19 AM EDT us Ernesto Lynch MD LAB BLOOD ORDERABLES Final Re sult [facility] [address] [place] [address], [place] [phone] * Digoxin level (05/18/2025 10:11 AM EDT) [facility] Digoxin Lvl 0.5 0.5 - 2.0 ng/mL LAB CHEMISTRY METHOD 05/18/2025 11:44 AM EDT [facility] Blood Venous blood specimen / Unknown Venipuncture / Unknown 05/18/2025 10:11 AM EDT 05/18/2025 10:19 AM EDT us Ernesto Lynch MD LAB BLOOD ORDERABLES Final Re sult Performing Organization Address City/[facility]/ZIP Co de Phone Number [facility] [address] [place] [address], [place] [phone] * (ABNORMAL) Activated Partial Thromboplastin Time - Every 6 Hours (05/18/2025 10:11 AM EDT) [facility] aPTT 57.7(H) 24.1 - 39.3 sec LAB COAGULATION METHOD 05/18/2025 10:38 AM EDT [facility] Blood Venous blood specimen / Unknown Venipuncture / Unknown 05/18/2025 10:11 AM EDT 05/18/2025 10:19 AM EDT us Ernesto Lynch MD LAB BLOOD ORDERABLES Final Re sult Performing Organization Address City/[facility]/ZIP Co de Phone Number [facility] [address] [place] [address], [place] [phone] * Lavender tube (05/18/2025 4:24 AM EDT) [facility] Extra Tube Hold for add-ons. 05/18/2025 6:01 AM EDT [facility] Comment:Auto resulted. Blood Venous blood specimen / Unknown Venipuncture / Unknown 05/18/2025 4:24 AM EDT 05/18/2025 4:28 AM EDT us Ernesto Lynch MD LAB BLOOD ORDERABLES Final Re sult Performing Organization Address [facility] Co de Phone Number [facility] [address] [place] [address], [place] [phone] * (ABNORMAL) Activated Partial Thromboplastin Time - Every 6 Hours (05/18/2025 4:24 AM EDT) [facility] aPTT 58.4(H) 24.1 - 39.3 sec LAB COAGULATION METHOD 05/18/2025 5:09 AM EDT [facility] Blood Venous blood specimen / Unknown Venipuncture / Unknown 05/18/2025 4:24 AM EDT 05/18/2025 4:28 AM EDT us Ernesto Lynch MD LAB BLOOD ORDERABLES Final Re sult Performing Organization Address [facility] de Phone Number [facility] [address] [place] [address], [place] [phone] * Magnesium (05/18/2025 4:24 AM EDT) [facility] Magnesium 2.2 1.9 - 2.6 mg/dL LAB CHEMISTRY METHOD 05/18/2025 4:55 AM EDT [facility] Blood Venous blood specimen / Unknown Venipuncture / Unknown 05/18/2025 4:24 AM EDT 05/18/2025 4:28 AM EDT us Ernesto Lynch MD LAB BLOOD ORDERABLES Final Re sult Performing Organization Address [facility] Co de Phone Number [facility] [address] [place] [address], [place] [phone] * (ABNORMAL) Basic metabolic panel (05/18/2025 4:24 AM EDT) Sodium 142 133 - 145 mmol/L LAB CHEMISTRY METHOD 05/18/2025 4:55 AM [facility] Potassium 3.7 3.5 - 5.5 mmol/L LAB CHEMISTRY METHOD 05/18/2025 4:55 AM [facility] Chloride 109 96 - 110 mmol/L LAB CHEMISTRY METHOD 05/18/2025 4:55 AM [facility] CO2 26 21 - 32 mmol/L LAB CHEMISTRY METHOD 05/18/2025 4:55 AM [facility] Anion Gap 7 3 - 11 LAB CHEMISTRY METHOD 05/18/2025 4:55 AM [facility] Glucose 124(H) 70 - 100 mg/dL LAB CHEMISTRY METHOD 05/18/2025 4:55 AM [facility] BUN 14 5 - 25 mg/dL LAB CHEMISTRY METHOD 05/18/2025 4:55 AM [facility] Creatinine 0.76 0.50 - 1.10 mg/dL LAB CHEMISTRY METHOD 05/18/2025 4:55 AM [facility] eGFR 79 >=60 mL/min/1. 73m2 LAB CHEMISTRY METHOD 05/18/2025 4:55 AM [facility] Comment:Calculation based on the Chronic Kidney Disease Epidemiology Collaboration (CKD-EPI) equation refit without adjustment for race. BUN/Creatinine Ratio 18.4 LAB CHEMISTRY METHOD 05/18/2025 4:55 AM [facility] Calcium 9.4 8.5 - 10.5 mg/dL LAB CHEMISTRY METHOD 05/18/2025 4:55 AM [facility] Blood Venous blood specimen / Unknown Venipuncture / Unknown 05/18/2025 4:24 AM EDT 05/18/2025 4:28 AM EDT us Ernesto Lynch MD LAB BLOOD ORDERABLES Final Re sult [facility] [address] [place] [address], [place] [phone] * Digoxin level (05/17/2025 9:11 PM EDT) Digoxin Lvl 0.6 0.5 - 2.0 ng/mL LAB CHEMISTRY METHOD 05/17/2025 10:11 PM EDT [facility] Blood Venous blood specimen / Unknown Venipuncture / Unknown 05/17/2025 9:11 PM EDT 05/17/2025 9:17 PM EDT Moe AGARWAL LAB BLOOD ORDERABLES Final Res ult Performing Organization Address [facility] Co de Phone Number [facility] [address] [place] [address], [place] [phone] * (ABNORMAL) Activated partial thromboplastin time (05/17/2025 9:11 PM EDT) aPTT 49.3(H) 24.1 - 39.3 sec LAB COAGULATION METHOD 05/17/2025 9:49 PM EDT [facility] Blood Venous blood specimen / Unknown Venipuncture / Unknown 05/17/2025 9:11 PM EDT 05/17/2025 9:17 PM EDT Ernesto Lynch MD LAB BLOOD ORDERABLES Final Re sult Performing Organization Address [facility]/ZIP Co de Phone Number [facility] [address] [place] [address], [place] [phone] * (ABNORMAL) Activated Partial Thromboplastin Time - Every 6 Hours (05/17/2025 7:14 PM EDT) aPTT 70.6(H) 24.1 - 39.3 sec LAB COAGULATION METHOD 05/17/2025 7:50 PM EDT [facility] Blood Venous blood specimen / Unknown Venipuncture / Unknown 05/17/2025 7:14 PM EDT 05/17/2025 7:24 PM EDT us Ernesto Lynch MD LAB BLOOD ORDERABLES Final Re sult [facility] ([facility] [address] [place] [address], * NM Bone/Joint Scan Whole Body (05/17/2025 3:09 PM EDT) Anatomical Region Laterality Modality Nuclear Medicine 05/17/2025 5:21 PM EDT Impressions 05/17/2025 5:28 PM EDT Diffuse skeletal metastases. -------- FINAL REPORT -------- Dictated By: Roula Macario Dictated Date: 05/17/2025 17:21 ET Assigned Physician: Roula Macario Reviewed and Electronically Signed By: Roula Macario Signed Date: 05/17/2025 17:28 ET Workstation ID: [id number] Transcribed By: Self Edit Transcribed Date: 05/17/2025 17:21 ET Narrative 05/17/2025 5:28 PM EDT HISTORY: Bone lesion, humerus, malignancy suspected Unknown primary, initial workup Technique: Anterior and posterior planar imaging was performed after administration of 24.8 mCi Tc-99m MDP IV. Compared with the CT 05/16/2025 Findings: Multifocal increased uptake throughout the ribs, sternum, pelvis and proximal upper and lower extremities. Procedure Note Roula Macario MD - 05/17/2025 HISTORY: Bone lesion, humerus, malignancy suspected Unknown primary, initial workup Technique: Anterior and posterior planar imaging was performed afteradministration of 24.8 mCi Tc-99m MDP IV. Compared with the CT05/16/2025 Findings: Multifocal increased uptake throughout the ribs, sternum, pelvisand proximal upper and lower extremities. IMPRESSION: Diffuse skeletal metastases. -------- FINAL REPORT -------- Dictated By: Roula Macario Dictated Date: 05/17/2025 17:21 ET Assigned Physician: Roula Macario Reviewed and Electronically Signed By: Roula Macario Signed Date: 05/17/2025 17:28 ET Workstation ID: [id number] Transcribed By: Self Edit Transcribed Date: 05/17/2025 17:21 ET us Ernesto Lynch MD IMG NM PROCEDURES Final Resul t * (ABNORMAL) Activated Partial Thromboplastin Time - Every 6 Hours (05/17/2025 12:42 PM EDT) aPTT 63.2(H) 24.1 - 39.3 sec LAB COAGULATION METHOD 05/17/2025 1:18 PM EDT [facility] Blood Venous blood specimen / Unknown Venipuncture / Unknown 05/17/2025 12:42 PM EDT 05/17/2025 12:55 PM EDT us Ernesto Lynch MD LAB BLOOD ORDERABLES Final Re sult Performing Organization Address City/[facility]/ZIP Co de Phone Number [facility] [address] [place] [address], [place] [phone] * Activated Partial Thromboplastin Time - Every 6 Hours (05/17/2025 6:17 AM EDT) aPTT 28.6 24.1 - 39.3 sec LAB COAGULATION METHOD 05/17/2025 7:58 AM EDT [facility] Blood Venous blood specimen / Unknown Venipuncture / Unknown 05/17/2025 6:17 AM EDT 05/17/2025 7:32 AM EDT us Ernesto Lynch MD LAB BLOOD ORDERABLES Final Re sult [facility] [address] [place] [address], [place] [phone] * (ABNORMAL) CBC - Every 3 Days (05/17/2025 6:17 AM EDT) [facility] WBC 10.7 4.8 - 10.8 K/mcL LAB HEMETOLOGY METHOD 05/17/2025 7:49 AM [facility] RBC 4.30 3.80 - 4.80 M/mcL LAB HEMETOLOGY METHOD 05/17/2025 7:49 AM [facility] Hemoglobin 11.4(L) 11.5 - 16.0 g/dL LAB HEMETOLOGY METHOD 05/17/2025 7:49 AM [facility] Hematocrit 38.4 35.0 - 47.0 % LAB HEMETOLOGY METHOD 05/17/2025 7:49 AM [facility] MCV 89.5 79.0 - 98.0 FL LAB HEMETOLOGY METHOD 05/17/2025 7:49 AM [facility] MCH 26.6(L) 27.0 - 32.0 pcg LAB HEMETOLOGY METHOD 05/17/2025 7:49 AM [facility] MCHC 29.7(L) 32.0 - 37.0 g/dL LAB HEMETOLOGY METHOD 05/17/2025 7:49 AM [facility] RDW 17.2(H) 11.0 - 15.0 % LAB HEMETOLOGY METHOD 05/17/2025 7:49 AM [facility] Platelets 416(H) 130 - 400 K/mcL LAB HEMETOLOGY METHOD 05/17/2025 7:49 AM [facility] MPV 10.2 7.0 - 11.0 FL LAB HEMETOLOGY METHOD 05/17/2025 7:49 AM [facility] NRBC 0.0 <1.0 % LAB HEMETOLOGY METHOD 05/17/2025 7:49 AM [facility] NRBC Absolute 0.00 <0.10 K/mcL LAB HEMETOLOGY METHOD 05/17/2025 7:49 AM [facility] Blood Venous blood specimen / Unknown Venipuncture / Unknown 05/17/2025 6:17 AM EDT 05/17/2025 7:31 AM EDT us Ernesto Lynch MD LAB BLOOD ORDERABLES Final Re sult [facility] [address] [place] [address], [place] [phone] * (ABNORMAL) Basic metabolic panel (05/17/2025 6:11 AM EDT) Sodium 139 133 - 145 mmol/L LAB CHEMISTRY METHOD 05/17/2025 8:08 AM [facility] Potassium 3.5 3.5 - 5.5 mmol/L LAB CHEMISTRY METHOD 05/17/2025 8:08 AM [facility] Chloride 103 96 - 110 mmol/L LAB CHEMISTRY METHOD 05/17/2025 8:08 AM [facility] CO2 31 21 - 32 mmol/L LAB CHEMISTRY METHOD 05/17/2025 8:08 AM [facility] Anion Gap 5 3 - 11 LAB CHEMISTRY METHOD 05/17/2025 8:08 AM [facility] Glucose 130(H) 70 - 100 mg/dL LAB CHEMISTRY METHOD 05/17/2025 8:08 AM [facility] BUN 16 5 - 25 mg/dL LAB CHEMISTRY METHOD 05/17/2025 8:08 AM [facility] Creatinine 0.82 0.50 - 1.10 mg/dL LAB CHEMISTRY METHOD 05/17/2025 8:08 AM [facility] eGFR 72 >=60 mL/min/1. 73m2 LAB CHEMISTRY METHOD 05/17/2025 8:08 AM [facility] Comment:Calculation based on the Chronic Kidney Disease Epidemiology Collaboration (CKD-EPI) equation refit without adjustment for race. BUN/Creatinine Ratio 19.5 LAB CHEMISTRY METHOD 05/17/2025 8:08 AM EDT [facility] Calcium 10.4 8.5 - 10.5 mg/dL LAB CHEMISTRY METHOD 05/17/2025 8:08 AM EDT [facility] Blood Venous blood specimen / Unknown Venipuncture / Unknown 05/17/2025 6:11 AM EDT 05/17/2025 7:31 AM EDT us Ernesto Lynch MD LAB BLOOD ORDERABLES Final Re sult Performing Organization Address [facility] Co de Phone Number [facility] [address] [place] [address], [place] [phone] * (ABNORMAL) Calcium, ionized (05/17/2025 6:11 AM EDT) Calcium Ionized 5.48(H) 4.50 - 5.30 mg/dL 05/17/2025 7:44 AM EDT [facility] Blood Venous blood specimen / Unknown Venipuncture / Unknown 05/17/2025 6:11 AM EDT 05/17/2025 7:31 AM EDT us Ernesto Lynch MD LAB BLOOD ORDERABLES Final Re sult Performing Organization Address City/[facility]/ZIP Co de Phone Number [facility] [address] [place] [address], [place] [phone] * (ABNORMAL) Activated Partial Thromboplastin Time - Every 6 Hours (05/17/2025 12:54 AM EDT) aPTT 43.5(H) 24.1 - 39.3 sec LAB COAGULATION METHOD 05/17/2025 1:46 AM EDT [facility] Blood Venous blood specimen / Unknown Venipuncture / Unknown 05/17/2025 12:54 AM EDT 05/17/2025 1:10 AM EDT us Ernesto Lynch MD LAB BLOOD ORDERABLES Final Re sult Performing Organization Address [facility]/ZIP Co de Phone Number [facility] [address] [place] [address], [place] [phone] * (ABNORMAL) Activated Partial Thromboplastin Time - Every 6 Hours (05/16/2025 6:50 PM EDT) aPTT 52.7(H) 24.1 - 39.3 sec LAB COAGULATION METHOD 05/16/2025 7:16 PM EDT [facility] Blood Venous blood specimen / Unknown Venipuncture / Unknown 05/16/2025 6:50 PM EDT 05/16/2025 6:56 PM EDT us Ernesto Lynch MD LAB BLOOD ORDERABLES Final Re sult Performing Organization Address [facility] Co de Phone Number [facility] [address] [place] [address], [place] [phone] * CT Chest/Abdomen/Pelvis w Contrast (05/16/2025 1:55 PM EDT) Anatomical Region Laterality Modality Body Computed Tomogra phy 05/16/2025 2:27 PM EDT Impressions 05/16/2025 2:48 PM EDT 1. Numerous metastatic lesions throughout the bones. 2. Nodular opacities in the upper lobes, consider follow-up CT in 1-3 months. -------- FINAL REPORT -------- Dictated By: Roula Macario Dictated Date: 05/16/2025 14:27 ET Assigned Physician: Roula Macario Reviewed and Electronically Signed By: Roula Macario Signed Date: 05/16/2025 14:48 ET Workstation ID: [id number] Transcribed By: Self Edit Transcribed Date: 05/16/2025 14:41 ET Narrative 05/16/2025 2:[address] CHEST, ABDOMEN AND PELVIS WITH CONTRAST INDICATION: Unknown primary, initial workup TECHNIQUE: Chest, abdomen and pelvis CT following the intravenous administration of 90cc ISOVUE 370. Multiplanar reformats were created and interpreted. The examination was performed utilizing dose reduction techniques. Total DLP: 450 mGy/cm COMPARISON: No priors available. FINDINGS: LUNGS/PLEURA: Hypoventilatory examination with atelectasis. Patchy groundglass opacities in the upper lobes which could be infectious/inflammatory though a follow-up CT chest should be performed in 3 months to ensure resolution. MEDIASTINUM: Cardiomegaly with coronary artery calcifications. Heterogenous appearance of the thyroid with thyroid nodules. CHEST WALL: Posttreatment changes in the right breast. HEPATOBILIARY: No focal liver lesions. Cholelithiasis. SPLEEN: no focal lesion PANCREAS: No focal mass or ductal dilatation. ADRENALS: No nodules. KIDNEYS/URETERS: Nonobstructing right renal calculi. PELVIC ORGANS/BLADDER: Bladder is distended. PERITONEUM / RETROPERITONEUM: No ascites or free air. No retroperitoneal lymphadenopathy. VESSELS: Sclerotic plaque throughout the GI TRACT: The aorta. BONES AND SOFT TISSUES: There are numerous metastatic lesions throughout the bones with multilevel degenerative changes of the spine with anterolisthesis of L4 and L5. No acute osseous abnormality. Remote rib deformities. Soft tissues are unremarkable. Procedure Note Roual Macario MD - 05/16/2025 CT CHEST, ABDOMEN AND PELVIS WITH CONTRAST INDICATION: Unknown primary, initial workup TECHNIQUE: Chest, abdomen and pelvis CT following the intravenousadministration of 90cc ISOVUE 370. Multiplanar reformats were created andinterpreted. The examination was performed utilizing dose reductiontechniques. Total DLP: 450 mGy/cm COMPARISON: No priors available. FINDINGS: LUNGS/PLEURA: Hypoventilatory examination with atelectasis. Patchygroundglass opacities in the upper lobes which could beinfectious/inflammatory though a follow-up CT chest should be performed in3 months to ensure resolution. MEDIASTINUM: Cardiomegaly with coronary artery calcifications.Heterogenous appearance of the thyroid with thyroid nodules. CHEST WALL: Posttreatment changes in the right breast. HEPATOBILIARY: No focal liver lesions. Cholelithiasis. SPLEEN: no focal lesion PANCREAS: No focal mass or ductal dilatation. ADRENALS: No nodules. KIDNEYS/URETERS: Nonobstructing right renal calculi. PELVIC ORGANS/BLADDER: Bladder is distended. PERITONEUM / RETROPERITONEUM: No ascites or free air. No retroperitoneallymphadenopathy. VESSELS: Sclerotic plaque throughout the GI TRACT: The aorta. BONES AND SOFT TISSUES: There are numerous metastatic lesions throughoutthe bones with multilevel degenerative changes of the spine withanterolisthesis of L4 and L5. No acute osseous abnormality. Remote ribdeformities. Soft tissues are unremarkable. IMPRESSION: 1. Numerous metastatic lesions throughout the bones. 2. Nodular opacities in the upper lobes, consider follow-up CT in 1-3months. -------- FINAL REPORT -------- Dictated By: Roula Macario Dictated Date: 05/16/2025 14:27 ET Assigned Physician: Roula Macario Reviewed and Electronically Signed By: Roula Macario Signed Date: 05/16/2025 14:48 ET Workstation ID: [id number] Transcribed By: Self Edit Transcribed Date: 05/16/2025 14:41 ET Ernesto Lynch MD IM CT PROCEDURES Final Resul t * (ABNORMAL) Parathyroid hormone related protein (05/16/2025 12:42 PM EDT) [facility] PTH-related Protein (PTHrP) 9(L) 11 - 20 pg/mL 05/23/2025 1:40 AM EDT [facility] Comment: This is a C-terminal PTH-RP assay. PTH-RP is useful in the differential diagnosis of hypercalcemia and levels may be elevated in patients with tumor-associated hypercalcemia. Elevated results may also be observed in patients with renal disease. This test was developed and its analytical performance characteristics have been determined by [facility]. It has not been cleared or approved by the FDA. This assay has been validated pursuant to the CLIA regulations and is used for clinical purposes. Test Performed at: [facility] [address] [id number] Asa Sun MD, PhD, KIMBERLEE Blood Venous blood specimen / Unknown Venipuncture / Unknown 05/16/2025 12:42 PM EDT 05/16/2025 12:53 PM EDT Ernesto Lynch MD LAB BLOOD ORDERABLES Final [place] [address] [place] [address] * (ABNORMAL) Anti-Xa - STAT (05/16/2025 12:41 PM EDT) Heparin Anti-Xa 0.19(L) 0.30 - 0.70 I Unit/mL LAB COAGULATION METHOD 05/16/2025 1:07 PM EDT [facility] Blood Venous blood specimen / Unknown Venipuncture / Unknown 05/16/2025 12:41 PM EDT 05/16/2025 12:53 PM EDT Narrative [facility] - 05/16/2025 1:07 PM EDT Therapeutic range listed is for Unfractionated Heparin. LMW Heparin therapeutic range: 0.50-1.20 IU/mL us Ernesto Lynch MD LAB BLOOD ORDERABLES Final Re sult Performing Organization Address [facility] Co de Phone Number [facility] [address] [place] [address], [place] [phone] * Activated Partial Thromboplastin Time - STAT (05/16/2025 12:41 PM EDT) aPTT 24.7 24.1 - 39.3 sec LAB COAGULATION METHOD 05/16/2025 1:07 PM EDT [facility] Blood Venous blood specimen / Unknown Venipuncture / Unknown 05/16/2025 12:41 PM EDT 05/16/2025 12:53 PM EDT us Ernesto Lynch MD LAB BLOOD ORDERABLES Final Re sult Performing Organization Address City/[facility]/ZIP Co de Phone Number [facility] [address] [place] [address], [place] [phone] * (ABNORMAL) Parathyroid hormone intact (05/16/2025 12:41 PM EDT) Pathologist [facility] PTH 9.7(L) 18.5 - 88.0 pcg/mL LAB CHEMISTRY METHOD 05/16/2025 1:35 PM EDT [facility] Blood Venous blood specimen / Unknown Venipuncture / Unknown 05/16/2025 12:41 PM EDT 05/16/2025 12:53 PM EDT us Ernesto Lynch MD LAB BLOOD ORDERABLES Final Re sult Performing Organization Address [facility]/ZIP Co de Phone Number [facility] [address] [place] [address], * (ABNORMAL) Calcium, ionized (05/16/2025 5:52 AM EDT) [facility] Calcium Ionized 5.78(H) 4.50 - 5.30 mg/dL 05/16/2025 6:22 AM EDT [facility] Blood Venous blood specimen / Unknown Venipuncture / Unknown 05/16/2025 5:52 AM EDT 05/16/2025 6:15 AM EDT Rosalind AGARWAL LAB BLOOD ORDERABLES Final Re sult [facility] [address] [place] [address], [place] [phone] * (ABNORMAL) CBC auto differential (05/16/2025 5:52 AM EDT) Pathologist [facility] WBC 13.3(H) 4.8 - 10.8 K/[facility] LAB HEMETOLOGY METHOD 05/16/2025 6:32 AM EDT [facility] RBC 4.10 3.80 - 4.80 M/mcL LAB HEMETOLOGY METHOD 05/16/2025 6:32 AM T [facility] Hemoglobin 10.9(L) 11.5 - 16.0 g/dL LAB HEMETOLOGY METHOD 05/16/2025 6:32 AM [facility] Hematocrit 37.4 35.0 - 47.0 % LAB HEMETOLOGY METHOD 05/16/2025 6:32 AM T [facility] MCV 91.0 79.0 - 98.0 FL LAB HEMETOLOGY METHOD 05/16/2025 6:32 AM [facility] MCH 26.5(L) 27.0 - 32.0 pcg LAB HEMETOLOGY METHOD 05/16/2025 6:32 AM [facility] MCHC 29.1(L) 32.0 - 37.0 g/dL LAB HEMETOLOGY METHOD 05/16/2025 6:32 AM [facility] RDW 16.9(H) 11.0 - 15.0 % LAB HEMETOLOGY METHOD 05/16/2025 6:32 AM [facility] Platelets 388 130 - 400 K/mcL LAB HEMETOLOGY METHOD 05/16/2025 6:32 AM [facility] MPV 10.0 7.0 - 11.0 FL LAB HEMETOLOGY METHOD 05/16/2025 6:32 AM [facility] NRBC 0.0 <1.0 % LAB HEMETOLOGY METHOD 05/16/2025 6:32 AM [facility] NRBC Absolute 0.00 <0.10 K/mcL LAB HEMETOLOGY METHOD 05/16/2025 6:32 AM [facility] Neutrophils Relative 75.5 % LAB HEMETOLOGY METHOD 05/16/2025 6:32 AM [facility] Lymphocytes Relative 12.0 % LAB HEMETOLOGY METHOD 05/16/2025 6:32 AM [facility] Monocytes Relative 10.5 % LAB HEMETOLOGY METHOD 05/16/2025 6:32 AM [facility] Eosinophils Relative 0.7 % LAB HEMETOLOGY METHOD 05/16/2025 6:32 AM [facility] Basophils Relative 0.5 % LAB HEMETOLOGY METHOD 05/16/2025 6:32 AM [facility] Immature Granulocytes Relative 0.8 % LAB HEMETOLOGY METHOD 05/16/2025 6:32 AM [facility] Neutrophils Absolute 10.03(H) 1.50 - 7.00 K/mcL LAB HEMETOLOGY METHOD 05/16/2025 6:32 AM [facility] Lymphocytes Absolute 1.60 1.00 - 5.00 K/mcL LAB HEMETOLOGY METHOD 05/16/2025 6:32 AM [facility] Monocytes Absolute 1.40(H) 0.20 - 1.00 K/mcL LAB HEMETOLOGY METHOD 05/16/2025 6:32 AM [facility] Eosinophils Absolute 0.09 0.00 - 0.50 K/mcL LAB HEMETOLOGY METHOD 05/16/2025 6:32 AM [facility] Basophils Absolute 0.07 0.00 - 0.20 K/mcL LAB HEMETOLOGY METHOD 05/16/2025 6:32 AM [facility] Immature Granulocytes Absolute 0.10(H) 0.00 - 0.03 K/mcL LAB HEMETOLOGY METHOD 05/16/2025 6:32 AM [facility] Blood Venous blood specimen / Unknown Venipuncture / Unknown 05/16/2025 5:52 AM EDT 05/16/2025 6:15 AM EDT Jhoan Sanz MD LAB BLOOD ORDERABLES Final Result [facility] [address] [place] [address], * (ABNORMAL) [place]-lambda free light chains, quantitative (05/16/2025 5:52 AM EDT) [place] Free Light Chain 7.64(H) 0.33 - 1.94 mg/dL 05/20/2025 12:36 PM EDT [facility] Lambda Free Light Chain 6.05(H) 0.57 - 2.63 mg/dL 05/20/2025 12:36 PM EDT [facility] [place]/Lambda FLC Ratio 1.26 0.26 - 1.65 05/20/2025 12:36 PM EDT [facility] Comment: Test performed at [facility], [address] , [place] [address] Rozina Peterson MD, PhD - Trailer Technician Blood Venous blood specimen / Unknown Venipuncture / Unknown 05/16/2025 5:52 AM EDT 05/16/2025 6:15 AM EDT Rosalind AGARWAL LAB BLOOD ORDERABLES Final Re sult [facility] [address] [place] [address] * (ABNORMAL) Hepatic function panel (05/16/2025 5:52 AM EDT) Total Protein 7.8 6.0 - 8.0 g/dL LAB CHEMISTRY METHOD 05/16/2025 8:18 AM EDT [facility] Albumin 1.9(L) 3.2 - 5.0 g/dL LAB CHEMISTRY METHOD 05/16/2025 8:18 AM EDT [facility] Comment:Results verified by repeat testing Total Bilirubin 0.4 0.0 - 1.4 mg/dL LAB CHEMISTRY METHOD [facility]/16[facility]2025 [facility] Bilirubin, Direct 0.2 0.0 - 0.3 mg/dL LAB CHEMISTRY METHOD 05/16/2025 8:18 AM [facility] Bilirubin, Indirect 0.2 0.0 - 1.1 mg/dL LAB CHEMISTRY METHOD 05/16/2025 8:18 AM [facility] ALT (SGPT) 17 10 - 60 unit/L LAB CHEMISTRY METHOD 05/16/2025 8:18 AM [facility] AST (SGOT) 97(H) 10 - 42 unit/L LAB CHEMISTRY METHOD 05/16/2025 8:18 AM [facility] Alkaline Phosphatase 325(H) 42 - 121 unit/L LAB CHEMISTRY METHOD 05/16/2025 8:18 AM [facility] Blood Venous blood specimen / Unknown Venipuncture / Unknown 05/16/2025 5:52 AM EDT 05/16/2025 6:15 AM EDT us Rosalind AGARWAL LAB BLOOD ORDERABLES Final Re sult [facility] [address] [place] [address], * (ABNORMAL) Basic metabolic panel (05/16/2025 5:52 AM EDT) Sodium 137 133 - 145 mmol/L LAB CHEMISTRY METHOD 05/16/2025 8:18 AM [facility] Potassium 4.0 3.5 - 5.5 mmol/L LAB CHEMISTRY METHOD 05/16/2025 8:18 AM [facility] Chloride 99 96 - 110 mmol/L LAB CHEMISTRY METHOD 05/16/2025 8:18 AM [facility] CO2 33(H) 21 - 32 mmol/L LAB CHEMISTRY METHOD 05/16/2025 8:18 AM [facility] Anion Gap 5 3 - 11 LAB CHEMISTRY METHOD 05/16/2025 8:18 AM EDT [facility] Glucose 122(H) 70 - 100 mg/dL LAB CHEMISTRY METHOD 05/16/2025 8:18 AM EDT [facility] BUN 20 5 - 25 mg/dL LAB CHEMISTRY METHOD 05/16/2025 8:18 AM EDT [facility] Creatinine 0.74 0.50 - 1.10 mg/dL LAB CHEMISTRY METHOD 05/16/2025 8:18 AM EDT [facility] eGFR 82 >=60 mL/min/1. 73m2 LAB CHEMISTRY METHOD 05/16/2025 8:18 AM EDT [facility] Comment:Calculation based on the Chronic Kidney Disease Epidemiology Collaboration (CKD-EPI) equation refit without adjustment for race. BUN/Creatinine Ratio 27.0 LAB CHEMISTRY METHOD 05/16/2025 8:18 AM EDT [facility] Calcium 11.3(H) 8.5 - 10.5 mg/dL LAB CHEMISTRY METHOD 05/16/2025 8:18 AM EDT [facility] Blood Venous blood specimen / Unknown Venipuncture / Unknown 05/16/2025 5:52 AM EDT 05/16/2025 6:15 AM EDT Jhoan Sanz MD LAB BLOOD ORDERABLES Final Result [facility] [address] [place] [address], * ECG-Annotated (05/16/2025) us Provider Onbase ECG ORDERABLES Final Result * PATHOLOGIST REVIEW PROTEIN ELECTROPHORESIS (05/15/2025 11:14 PM EDT) Pathologist Interpretation Rachna Garcia MD 05/20/2025 2:41 PM EDT [facility] Blood Venous blood specimen / Unknown Venipuncture / Unknown 05/15/2025 11:14 PM EDT 05/15/2025 11:23 PM EDT us Jhoan Sanz MD LAB BLOOD ORDERABLES Final Result [facility] [address] [place] [address], * (ABNORMAL) Basic metabolic panel (05/15/2025 11:14 PM EDT) Sodium 134 133 - 145 mmol/L LAB CHEMISTRY METHOD 05/15/2025 11:53 PM [facility] Potassium 4.2 3.5 - 5.5 mmol/L LAB CHEMISTRY METHOD 05/15/2025 11:53 PM [facility] Chloride 96 96 - 110 mmol/L LAB CHEMISTRY METHOD 05/15/2025 11:53 PM [facility] CO2 32 21 - 32 mmol/L LAB CHEMISTRY METHOD 05/15/2025 11:53 PM [facility] Anion Gap 6 3 - 11 LAB CHEMISTRY METHOD 05/15/2025 11:53 PM [facility] Glucose 163(H) 70 - 100 mg/dL LAB CHEMISTRY METHOD 05/15/2025 11:53 PM [facility] BUN 22 5 - 25 mg/dL LAB CHEMISTRY METHOD 05/15/2025 11:53 PM [facility] Creatinine 0.83 0.50 - 1.10 mg/dL LAB CHEMISTRY METHOD 05/15/2025 11:53 PM [facility] eGFR 71 >=60 mL/min/1. 73m2 LAB CHEMISTRY METHOD 05/15/2025 11:53 PM [facility] Comment:Calculation based on the Chronic Kidney Disease Epidemiology Collaboration (CKD-EPI) equation refit without adjustment for race. BUN/Creatinine Ratio 26.5 LAB CHEMISTRY METHOD 05/15/2025 11:53 PM EDT [facility] Calcium 11.6(H) 8.5 - 10.5 mg/dL LAB CHEMISTRY METHOD 05/15/2025 11:53 PM EDT [facility] Blood Venous blood specimen / Unknown Venipuncture / Unknown 05/15/2025 11:14 PM EDT 05/15/2025 11:24 PM EDT Rosalind AGARWAL LAB BLOOD ORDERABLES Final Re sult Performing Organization Address City/[facility]/ZIP Co de Phone Number [facility] [address] [place] [address], [place] [phone] * (ABNORMAL) Albumin (05/15/2025 11:14 PM EDT) Albumin 2.1(L) 3.2 - 5.0 g/dL LAB CHEMISTRY METHOD 05/15/2025 11:53 PM EDT [facility] Blood Venous blood specimen / Unknown Venipuncture / Unknown 05/15/2025 11:14 PM EDT 05/15/2025 11:24 PM EDT Rosalind AGARWAL LAB BLOOD ORDERABLES Final Re sult Performing Organization Address City/[facility]/ZIP Co de Phone Number [facility] [address] [place] [address], [place] [phone] * (ABNORMAL) Protein, total (05/15/2025 11:14 PM EDT) Total Protein 8.8(H) 6.0 - 8.0 g/dL LAB CHEMISTRY METHOD 05/16/2025 1:48 AM EDT [facility] Blood Venous blood specimen / Unknown Venipuncture / Unknown 05/15/2025 11:14 PM EDT 05/15/2025 11:23 PM EDT us Jhoan Sanz MD LAB BLOOD ORDERABLES Final Result Performing Organization Address [facility]/ZIP Co de Phone Number [facility] [address] [place] [address], [place] [phone] * Hepatitis panel, acute with reflex to confirmation (05/15/2025 11:14 PM EDT) Pathologist [facility] Hepatitis B Surface Ag Negative Negative LAB CHEMISTRY METHOD 05/16/2025 1:21 AM EDT [facility] Hepatitis A Antibody IgM Negative Negative LAB CHEMISTRY METHOD 05/16/2025 1:21 AM EDT [facility] Hep B Core IgM Negative Negative LAB CHEMISTRY METHOD 05/16/2025 1:21 AM EDT [facility] Hepatitis C Antibody Negative Negative LAB CHEMISTRY METHOD 05/16/2025 1:21 AM EDT [facility] Blood Venous blood specimen / Unknown Venipuncture / Unknown 05/15/2025 11:14 PM EDT 05/15/2025 11:24 PM EDT Rosalind AGARWAL LAB BLOOD ORDERABLES Final Re sult Performing Organization Address [facility]/ZIP Co de Phone Number [facility] [address] [place] [address], [place] [phone] * (ABNORMAL) Protein electrophoresis, serum (05/15/2025 11:14 PM EDT) Total Protein 8.8(H) 6.0 - 8.0 g/dL LAB CHEMISTRY METHOD 05/20/2025 2:41 PM EDT [facility] Albumin, Serum 2.2(L) 2.9 - 4.1 g/dL LAB CHEMISTRY METHOD 05/20/2025 2:41 PM EDT [facility] Alpha 1 Globulin (g/dL) 0.7(H) 0.1 - 0.5 g/dL LAB CHEMISTRY METHOD 05/20/2025 2:41 PM EDT [facility] Alpha 2 Globulin (g/dL) 1.6(H) 0.7 - 1.5 g/dL LAB CHEMISTRY METHOD 05/20/2025 2:41 PM EDT [facility] Beta (g/dL) 1.3 0.7 - 1.5 g/dL LAB CHEMISTRY METHOD 05/20/2025 2:41 PM EDT [facility] Gamma Globulin (g/dL) 3.1(H) 0.7 - 1.9 g/dL LAB CHEMISTRY METHOD 05/20/2025 2:41 PM EDT [facility] SPEP Interpretation No M-Jessee seen. Hypoalbuminem ia, suggestive of malnutrition, decreased hepatic synthesis or renal/GI loss Elevated alpha-1 fraction, suggestive of acute or or chronic inflammation. Elevated alpha-2 fraction, suggestive of acute phase reaction Hypergammaglo binemia Polyclonal. Pattern may be associated with chronic inflammation, chronic LAB CHEMISTRY METHOD 05/20/2025 2:41 PM EDT [facility] Blood Venous blood specimen / Unknown Venipuncture / Unknown 05/15/2025 11:14 PM EDT 05/15/2025 11:23 PM EDT us Jhoan Sanz MD LAB BLOOD ORDERABLES Final Result [facility] [address] [place] [address], * XR Humerus 2+ Views Right (05/15/2025 10:38 PM EDT) Anatomical Region Laterality Modality Upper Extremities, Humerus Right Radio graphic Imaging 05/16/2025 9:24 AM EDT Impressions 05/16/2025 9:25 AM EDT Degenerative and postoperative changes without acute bony abnormality. -------- FINAL REPORT -------- Dictated By: Gladis Mcgovern Dictated Date: 05/16/2025 09:24 ET Assigned Physician: Gladis Mcgovern Reviewed and Electronically Signed By: Gladis Mcgovern Signed Date: 05/16/2025 09:25 ET Workstation ID: [id number] Transcribed By: Self Edit Transcribed Date: 05/16/2025 09:24 ET Narrative 05/16/2025 9:25 AM EDT INDICATION: Bone lesion, hemorrhage, malignancy suspected FINDINGS: Minimum of 2 views of the right humerus were obtained. No prior studies are available for comparison. No fracture or dislocation. No periosteal reaction or radiopaque foreign body. No significant soft tissue abnormality. No lytic or sclerotic lesions. Postoperative changes overlying the right humeral head with 2 metallic anchors. Degenerative changes. Procedure Note Gladis Mcgovern MD - 05/16/2025 INDICATION: Bone lesion, hemorrhage, malignancy suspected FINDINGS: Minimum of 2 views of the right humerus were obtained. No priorstudies are available for comparison. No fracture or dislocation. No periosteal reaction or radiopaque foreignbody. No significant soft tissue abnormality. No lytic or scleroticlesions. Postoperative changes overlying the right humeral head with 2metallic anchors. Degenerative changes. IMPRESSION: Degenerative and postoperative changes without acute bony abnormality. -------- FINAL REPORT -------- Dictated By: Gladis Mcgovern Dictated Date: 05/16/2025 09:24 ET Assigned Physician: Gladis Mcgovern Reviewed and Electronically Signed By: Gladis Mcgovern Signed Date: 05/16/2025 09:25 ET Workstation ID: [id number] Transcribed By: Self Edit Transcribed Date: 05/16/2025 09:24 ET us Jhoan Sanz MD IMG XR PROCEDURES Final Res ult * CT Head wo Contrast (05/15/2025 7:18 PM EDT) Anatomical Region Laterality Modality Head and Neck Computed Tomogra phy 05/15/2025 8:01 PM EDT Impressions 05/15/2025 8:01 PM EDT 1. No acute intracranial findings. This document has been electronically signed by: Andi Ann MD on 05/15/2025 20:01:27 Narrative 05/15/2025 8:01 PM EDT INDICATION: Mental status change, unknown cause CT head without contrast. COMPARISON: None provided. FINDINGS: The visualized paranasal sinuses are clear. The mastoid air cells are clear. No calvarial fracture. Atherosclerotic intracranial vasculature. No evidence for mass or mass effect. No intracranial hemorrhage or abnormal extra-axial fluid collection. No CT evidence of acute infarct. The ventricles are proportional with the degree of mild global cerebral volume loss without evidence of hydrocephalus. Basilar cisterns are patent. There are periventricular areas of low attenuation compatible with mild white matter small vessel disease. Posterior fossa appears unremarkable. Procedure Note Andi Ann MD - 05/15/2025 INDICATION: Mental status change, unknown cause CT head without contrast. COMPARISON: None provided. FINDINGS: The visualized paranasal sinuses are clear. The mastoid air cells are clear. No calvarial fracture. Atherosclerotic intracranial vasculature. No evidence for mass or mass effect. No intracranial hemorrhage or abnormal extra-axial fluid collection. No CT evidence of acute infarct. The ventricles are proportional with the degree of mild global cerebral volume loss without evidence of hydrocephalus. Basilar cisterns arepatent. There are periventricular areas of low attenuation compatible with mild white matter small vessel disease. Posterior fossa appears unremarkable. IMPRESSION: 1. No acute intracranial findings. This document has been electronically signed by: Andi Ann MD on 05/15/2025 20:01:27 Ivania Vidal MD IM CT PROCEDURES Final Res ult * (ABNORMAL) Protime-INR (05/15/2025 6:17 PM EDT) Protime 21.0(H) 10.6 - 13.9 sec LAB COAGULATION METHOD 05/15/2025 6:54 PM EDT [facility] INR 1.7 LAB COAGULATION METHOD 05/15/2025 6:54 PM EDT [facility] Blood Venous blood specimen / Unknown Venipuncture / Unknown 05/15/2025 6:17 PM EDT 05/15/2025 6:39 PM EDT us Ivania Vidal MD LAB BLOOD ORDERABLES Final Result [facility] [address] [facility] [place] [address], * XR Chest 1 View (05/15/2025 6:15 PM EDT) Anatomical Region Laterality Modality Body Radiographic Steph ging 05/16/2025 8:51 AM EDT Impressions 05/16/2025 8:53 AM EDT FINDINGS/IMPRESSION: No pneumonia or pulmonary edema. No pleural effusion or pneumothorax. Cardiac silhouette is mildly enlarged. Bones are similar compared to 2020 with rotator cuff repair bone anchors noted at the right proximal humerus. S-shaped thoracolumbar scoliosis with degenerative changes seen throughout the spine. -------- FINAL REPORT -------- Dictated By: CHIDI PATEL Dictated Date: 05/16/2025 08:51 ET Assigned Physician: CHIDI PATEL Reviewed and Electronically Signed By: CHIDI PATEL Signed Date: 05/16/2025 08:53 ET Workstation ID: [id number] Transcribed By: Self Edit Transcribed Date: 05/16/2025 08:51 ET Narrative 05/16/2025 8:53 AM EDT XR CHEST 1 VIEW INDICATION: Heart failure, shortness of breath TECHNIQUE: XR CHEST 1 VIEW COMPARISON: 03/25/2021. Procedure Note Chidi Patel MD - 05/16/2025 XR CHEST 1 VIEW INDICATION: Heart failure, shortness of breath TECHNIQUE: XR CHEST 1 VIEW COMPARISON: 03/25/2021. IMPRESSION: FINDINGS/IMPRESSION: No pneumonia or pulmonary edema. No pleural effusionor pneumothorax. Cardiac silhouette is mildly enlarged. Bones aresimilar compared to 2020 with rotator cuff repair bone anchors noted atthe right proximal humerus. S-shaped thoracolumbar scoliosis withdegenerative changes seen throughout the spine. -------- FINAL REPORT -------- Dictated By: CHIDI PATEL Dictated Date: 05/16/2025 08:51 ET Assigned Physician: CHIDI PATEL Reviewed and Electronically Signed By: CHIDI PATEL Signed Date: 05/16/2025 08:53 ET Workstation ID: [id number] Transcribed By: Self Edit Transcribed Date: 05/16/2025 08:51 ET Jhoan Sanz MD IMG XR PROCEDURES Final Res ult * (ABNORMAL) Immunoglobulins IgG, IgA, IgM, IgE (05/15/2025 5:36 PM EDT) Total IgG 2,510(H) 549 - 1,584 mg/dL LAB CHEMISTRY METHOD 05/15/2025 9:51 PM EDT [facility] IgA 545(H) 61 - 348 mg/dL LAB CHEMISTRY METHOD 05/15/2025 9:51 PM EDT [facility] IgM 151 23 - 259 mg/dL LAB CHEMISTRY METHOD 05/15/2025 9:51 PM EDT [facility] IgE 16.2 0.0 - 158.0 I Unit/mL LAB CHEMISTRY METHOD 05/15/2025 9:51 PM EDT [facility] Blood Venous blood specimen / Unknown Venipuncture / Unknown 05/15/2025 5:36 PM EDT 05/15/2025 5:57 PM EDT Jhoan Sanz MD LAB BLOOD ORDERABLES Final Result [facility] [address] [place] [address], * (ABNORMAL) Lactate dehydrogenase (05/15/2025 5:36 PM EDT) LDH 396(H) 120 - 246 unit/L LAB CHEMISTRY METHOD 05/15/2025 9:26 PM EDT [facility] Blood Venous blood specimen / Unknown Venipuncture / Unknown 05/15/2025 5:36 PM EDT 05/15/2025 5:57 PM EDT us Jhoan Sanz MD LAB BLOOD ORDERABLES Final Result Performing Organization Address City/[facility]/ZIP Co de Phone Number [facility] [address] [place] [address], [place] [phone] * (ABNORMAL) Uric acid (05/15/2025 5:36 PM EDT) [facility] Uric Acid 3.0(L) 3.1 - 7.8 mg/dL LAB CHEMISTRY METHOD 05/15/2025 9:22 PM EDT [facility] Blood Venous blood specimen / Unknown Venipuncture / Unknown 05/15/2025 5:36 PM EDT 05/15/2025 5:57 PM EDT us Jhoan Sanz MD LAB BLOOD ORDERABLES Final Result Performing Organization Address [facility] Co de Phone Number [facility] [address] [place] [address], [place] [phone] * (ABNORMAL) Beta 2 microglobulin, serum (05/15/2025 5:36 PM EDT) [facility] Beta-2 Microglobulin 5.6(H) 0.7 - 1.8 mg/L LAB CHEMISTRY METHOD 05/15/2025 9:22 PM EDT [facility] Blood Venous blood specimen / Unknown Venipuncture / Unknown 05/15/2025 5:36 PM EDT 05/15/2025 5:57 PM EDT us Jhoan Sanz MD LAB BLOOD ORDERABLES Final Result Performing Organization Address [facility] Co de Phone Number [facility] [address] [place] [address], [place] [phone] * Thyroid Stimulating Hormone (TSH) (05/15/2025 5:36 PM EDT) TSH 0.90 0.40 - 4.00 mcIU/mL LAB CHEMISTRY METHOD 05/15/2025 8:07 PM EDT [facility] Blood Venous blood specimen / Unknown Venipuncture / Unknown 05/15/2025 5:36 PM EDT 05/15/2025 5:57 PM EDT Terell Dickey MD LAB BLOOD ORDERABLES Pauline l Result Performing Organization Address City/[facility]/ZIP Co de Phone Number [facility] [address] [place] [address], [place] [phone] * High Sensitivity CRP (05/15/2025 5:36 PM EDT) Pathologist [facility] CRP, High Sensitivity >190.00 mg/L LAB CHEMISTRY METHOD 05/15/2025 7:07 PM EDT [facility] Comment: Cardio CRP Relative Risk Categories Low <1.0 mg/L Average 1.0 - 3.0 mg/L High >3.0 mg/L Levels >10.0 mg/L should be ignored and repeated when the patient is stable and infection or inflammation is ruled out. HRT (estrogens) consistently increase cardio CRP levels. Risk estimates for women on HRT may need to be calibrated downward. Blood Venous blood specimen / Unknown Venipuncture / Unknown 05/15/2025 5:36 PM EDT 05/15/2025 5:57 PM EDT Terell Dickey MD LAB BLOOD ORDERABLES Pauline l Result Performing Organization Address City/[facility]/ZIP Co de Phone Number [facility] [address] [place] [address], [place] [phone] * (ABNORMAL) Comprehensive metabolic panel (05/15/2025 5:36 PM EDT) Pathologist [facility] Sodium 133 133 - 145 mmol/L LAB CHEMISTRY METHOD 05/15/2025 7:47 PM EDT [facility] Potassium 4.7 3.5 - 5.5 mmol/L LAB CHEMISTRY METHOD 05/15/2025 7:47 PM [facility] Comment:Hemolysis present Chloride 93(L) 96 - 110 mmol/L LAB CHEMISTRY METHOD 05/15/2025 7:47 PM [facility] CO2 33(H) 21 - 32 mmol/L LAB CHEMISTRY METHOD 05/15/2025 7:47 PM [facility] Anion Gap 7 3 - 11 LAB CHEMISTRY METHOD 05/15/2025 7:47 PM [facility] Glucose 220(H) 70 - 100 mg/dL LAB CHEMISTRY METHOD 05/15/2025 7:47 PM [facility] BUN 24 5 - 25 mg/dL LAB CHEMISTRY METHOD 05/15/2025 7:47 PM [facility] Creatinine 0.93 0.50 - 1.10 mg/dL LAB CHEMISTRY METHOD 05/15/2025 7:47 PM [facility] eGFR 62 >=60 mL/min/1. 73m2 LAB CHEMISTRY METHOD 05/15/2025 7:47 PM [facility] Comment:Calculation based on the Chronic Kidney Disease Epidemiology Collaboration (CKD-EPI) equation refit without adjustment for race. BUN/Creatinine Ratio 25.8 LAB CHEMISTRY METHOD 05/15/2025 7:47 PM [facility] Calcium 12.1(H) 8.5 - 10.5 mg/dL LAB CHEMISTRY METHOD 05/15/2025 7:47 PM [facility] AST (SGOT) 123(H) 10 - 42 unit/L LAB CHEMISTRY METHOD 05/15/2025 7:47 PM [facility] ALT (SGPT) 27 10 - 60 unit/L LAB CHEMISTRY METHOD 05/15/2025 7:47 PM [facility] Alkaline Phosphatase 359(H) 42 - 121 unit/L LAB CHEMISTRY METHOD 05/15/2025 7:47 PM EDT [facility] Total Protein 8.6(H) 6.0 - 8.0 g/dL LAB CHEMISTRY METHOD 05/15/2025 7:47 PM EDT [facility] Albumin 2.1(L) 3.2 - 5.0 g/dL LAB CHEMISTRY METHOD 05/15/2025 7:47 PM EDT [facility] Total Bilirubin 0.5 0.0 - 1.4 mg/dL LAB CHEMISTRY METHOD 05/15/2025 7:47 PM EDT [facility] Blood Venous blood specimen / Unknown Venipuncture / Unknown 05/15/2025 5:36 PM EDT 05/15/2025 5:57 PM EDT us Ivania Vidal MD LAB BLOOD ORDERABLES Final Result Performing Organization Address City/[facility]/ZIP Co de Phone Number [facility] [address] [place] [address], [place] [phone] * Digoxin level (05/15/2025 5:36 PM EDT) Digoxin Lvl 0.8 0.5 - 2.0 ng/mL LAB CHEMISTRY METHOD 05/15/2025 7:00 PM EDT [facility] Blood Venous blood specimen / Unknown Venipuncture / Unknown 05/15/2025 5:36 PM EDT 05/15/2025 5:57 PM EDT us Ivania Vidal MD LAB BLOOD ORDERABLES Final Result [facility] [address] [place] [address], [place] [phone] * (ABNORMAL) CBC auto differential (05/15/2025 5:36 PM EDT) WBC 13.8(H) 4.8 - 10.8 K/mcL LAB HEMETOLOGY METHOD 05/15/2025 6:05 PM [facility] RBC 4.40 3.80 - 4.80 M/mcL LAB HEMETOLOGY METHOD 05/15/2025 6:05 PM [facility] Hemoglobin 11.7 11.5 - 16.0 g/dL LAB HEMETOLOGY METHOD 05/15/2025 6:05 PM [facility] Hematocrit 40.2 35.0 - 47.0 % LAB HEMETOLOGY METHOD 05/15/2025 6:05 PM [facility] MCV 90.7 79.0 - 98.0 FL LAB HEMETOLOGY METHOD 05/15/2025 6:05 PM [facility] MCH 26.4(L) 27.0 - 32.0 pcg LAB HEMETOLOGY METHOD 05/15/2025 6:05 PM [facility] MCHC 29.1(L) 32.0 - 37.0 g/dL LAB HEMETOLOGY METHOD 05/15/2025 6:05 PM [facility] RDW 16.8(H) 11.0 - 15.0 % LAB HEMETOLOGY METHOD 05/15/2025 6:05 PM [facility] Platelets 444(H) 130 - 400 K/mcL LAB HEMETOLOGY METHOD 05/15/2025 6:05 PM [facility] MPV 10.5 7.0 - 11.0 FL LAB HEMETOLOGY METHOD 05/15/2025 6:05 PM [facility] NRBC 0.0 <1.0 % LAB HEMETOLOGY METHOD 05/15/2025 6:05 PM [facility] NRBC Absolute 0.00 <0.10 K/mcL LAB HEMETOLOGY METHOD 05/15/2025 6:05 PM [facility] Neutrophils Relative 80.1 % LAB HEMETOLOGY METHOD 05/15/2025 6:05 PM [facility] Lymphocytes Relative 9.6 % LAB HEMETOLOGY METHOD 05/15/2025 6:05 PM [facility] Monocytes Relative 8.3 % LAB HEMETOLOGY METHOD 05/15/2025 6:05 PM [facility] Eosinophils Relative 0.5 % LAB HEMETOLOGY METHOD 05/15/2025 6:05 PM [facility] Basophils Relative 0.3 % LAB HEMETOLOGY METHOD 05/15/2025 6:05 PM [facility] Immature Granulocytes Relative 1.2 % LAB HEMETOLOGY METHOD 05/15/2025 6:05 PM [facility] Neutrophils Absolute 11.05(H) 1.50 - 7.00 K/mcL LAB HEMETOLOGY METHOD 05/15/2025 6:05 PM [facility] Lymphocytes Absolute 1.32 1.00 - 5.00 K/mcL LAB HEMETOLOGY METHOD 05/15/2025 6:05 PM [facility] Monocytes Absolute 1.14(H) 0.20 - 1.00 K/mcL LAB HEMETOLOGY METHOD 05/15/2025 6:05 PM [facility] Eosinophils Absolute 0.07 0.00 - 0.50 K/mcL LAB HEMETOLOGY METHOD 05/15/2025 6:05 PM [facility] Basophils Absolute 0.04 0.00 - 0.20 K/mcL LAB HEMETOLOGY METHOD 05/15/2025 6:05 PM [facility] Immature Granulocytes Absolute 0.16(H) 0.00 - 0.03 K/mcL LAB HEMETOLOGY METHOD 05/15/2025 6:05 PM [facility] Blood Venous blood specimen / Unknown Venipuncture / Unknown 05/15/2025 5:36 PM EDT 05/15/2025 5:57 PM EDT us Ivania Vidal MD LAB BLOOD ORDERABLES Final Result Performing Organization Address [facility] Co de Phone Number [facility] [address] [place] [address], [place] [phone] * (ABNORMAL) B-Type Natriuretic Peptide (BNP) (05/15/2025 5:36 PM EDT) [facility] BNP 199(H) <=100 pcg/mL LAB CHEMISTRY METHOD 05/15/2025 6:32 PM EDT [facility] Blood Venous blood specimen / Unknown Venipuncture / Unknown 05/15/2025 5:36 PM EDT 05/15/2025 5:57 PM EDT us Ivania Vidal MD LAB BLOOD ORDERABLES Final Result Performing Organization Address [facility] Co de Phone Number [facility] [address] [place] [address], [place] [phone] * ECG 12 lead (05/15/2025 5:24 PM EDT) [facility] Ventricular Rate ECG 107 BPM GEMUSE QRS Duration 104 ms GEMUSE Q-T Interval 324 ms GEMUSE QTc 432 ms GEMUSE R [place] 0 degrees GEMUSE T [place] -111 degrees GEMUSE ECG Interpretation Atrial fibrillation with rapid ventricular response Minimal voltage criteria for LVH, may be normal variant ( [place] product ) Nonspecific ST and T wave abnormality Abnormal ECG When compared with ECG of 25-MAR-2021 01:26, Significant changes have occurred Confirmed by BERHANE PRATER ([id number]) on 05/16/2025 11:40:02 AM GEMUSE 05/15/2025 5:24 PM EDT 05/16/2025 11:40 AM EDT us Ivania Vidal MD ECG ORDERABLES Final Resul t Performing Organization Address City/[facility] Co de Phone Number GEMUSE documented in this encounter Visit Diagnoses Diagnosis Acute metabolic encephalopathy- Primary Acute metabolic encephalopathy Hypercalcemia Cardiomyopathy, unspecified type (CMS/HCC V24, CMS/HCC V28) Edema of right upper arm Malignancy (CMS/HCC V24, CMS/HCC V28) Other malignant neoplasm of unspecified site 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, left (CMS/HCC V24, CMS/HCC V28) Ischemic cardiomyopathy Other specified forms of chronic ischemic heart disease Hypercalcemia Malignancy (CMS/HCC V24, CMS/HCC V28) Other malignant neoplasm of unspecified site Severe protein-calorie malnutrition (CMS/HCC V24) Other severe protein-calorie malnutrition Hypotension Unspecified hypotension documented in this encounter Admitting Diagnoses Diagnosis Acute metabolic encephalopathy Hypercalcemia documented in this encounter Administered Medications Inactive Administered Medications - up to 3 most recent administrations Medication Order MAR Action Action Date Dose Rate Site acetaminophen (TYLENOL) tablet 1,000 mg 1,000 mg, oral, Every 8 hours scheduled, First dose on Tue05/19/25 at 1400 Given 06/05/2025 5:39 AM EDT 1,000 mg Given 06/04/2025 9:00 PM EDT 1,000 mg Given 06/04/2025 2:20 PM EDT 1,000 mg acetaminophen (TYLENOL) tablet 500 mg 500 mg, oral, Every 6 hours PRN, mild pain, headaches, fever - temperature GREATER than 38 C (100.4 F), Starting on Tue05/15/25 at 2130 Given 05/19/2025 3:55 AM EDT 500 mg Given 05/18/2025 5:34 PM EDT 500 mg Given 05/17/2025 8:06 AM EDT 500 mg albumin human 25 % infusion 25 g 25 g, intravenous, at 120 mL/hr, Once, On 05/25/25 at 0945, For 1 dose, .mhs, Indication? Cardiac Surgery New Bag 05/25/2025 9:36 AM EDT 25 g 120 mL/hr albumin human 25 % infusion 25 g 25 g, intravenous, at 120 mL/hr, Once, On 05/28/25 at 0915, For 1 dose, Indication? 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 Infusing too rapidly may cause vascular overload which may lead to pulmonary edema or cardiac failure. ROUTINE REPLACEMENT: (non-critical) Infuse 5% or 25% Albumin @ 100 mL/hr for routine albumin replacement in non-critical situations. Faster infusion rates are appropriate for hypovolemic shock (see above). 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 Infusing too rapidly may cause vascular overload which may lead to pulmonary edema or cardiac failure. ROUTINE REPLACEMENT: (non-critical) Infuse 5% or 25% Albumin @ 100 mL/hr for routine albumin replacement in non-critical situations. Faster infusion rates are appropriate for hypovolemic shock (see above). 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 Bolus from Bag 05/26/2025 10:27 AM EDT 150 mg amiodarone (NEXTERONE) 360 mg in dextrose iso-osmotic 200 mL (1.8 mg/mL) infusion 1 mg/min (33.3333 mL/hr, rounded to 33.3 mL/hr), intravenous, Continuous, Starting on Tue05/26/25 at 1045, For 6 hours, *Administer through IV line with In-Line Filter* GOAL EFFECT: Suppression of arrhythmia USUAL INFUSION REGIMEN: -1 mg/min for 6 hrs followed by -0.5 mg/min (further adjustments per prescriber) CONTACT PRESCRIBER: -HR LESS than 60 BPM -HR GREATER than 120 BPM, -SBP LESS than 80 mmHg -SBP GREATER than 180 mmHg -Prolongation of MT interval + QRS complex *Individual cases may require deviation from parameters (with prescriber approval)* Use in-line filter. Administer through central venous catheter whenever available. New Bag 05/26/2025 1:51 PM EDT 1 mg/min 33.3 mL/hr New Bag 05/26/2025 10:28 AM EDT 1 mg/min 33.3 mL/hr amiodarone (NEXTERONE) 360 mg in dextrose iso-osmotic 200 mL (1.8 mg/mL) infusion 0.5 mg/min (16.6667 mL/hr, rounded to 16.67 mL/hr), intravenous, Continuous, Starting on Tue05/26/25 at 1628, For 2 days 2 hours, *Administer through IV line with In-Line Filter* GOAL EFFECT: Suppression of arrhythmia USUAL INFUSION REGIMEN: -1 mg/min for 6 hrs followed by -0.5 mg/min (further adjustments per prescriber) CONTACT PRESCRIBER: -HR LESS than 60 BPM -HR GREATER than 120 BPM, -SBP LESS than 80 mmHg -SBP GREATER than 180 mmHg -Prolongation of MT interval + QRS complex *Individual cases may require deviation from parameters (with prescriber approval)* Use in-line filter. Administer through central venous catheter whenever available. Rate/Dose Verify 05/28/2025 3:00 PM EDT 0.5 mg/min 16.67 mL/hr New Bag 05/28/2025 11:28 AM EDT 0.5 mg/min 16.67 mL/hr Rate/Dose Verify 05/28/2025 9:00 AM EDT 0.5 mg/min 16.67 m L/hr amiodarone (PACERONE) tablet 400 mg 400 mg, oral, 2 times daily, First dose on Tue05/28/25 at 2100, For 14 doses, Indications: atrial fibrillationIndications:atrial fibrillation Given 05/30/2025 11:54 AM EDT 400 mg Given 05/29/2025 8:52 PM EDT 400 mg Given 05/29/2025 8:29 AM EDT 400 mg apixaban (ELIQUIS) tablet 2.5 mg 2.5 mg, oral, 2 times daily, First dose on Tue05/21/25 at 1300, Indication: Atrial Fibrillation, On hold since Tue05/23/2025 at 0857 until manually unheld Given 05/22/2025 9:06 PM EDT 2.5 mg Given 05/22/2025 8:22 AM EDT 2.5 mg Given 05/21/2025 9:18 PM EDT 2.5 mg apixaban (ELIQUIS) tablet 2.5 mg 2.5 mg, oral, 2 times daily, First dose on Tue05/29/25 at 0800, Indication: Atrial Fibrillation, On hold since Tue05/31/2025 at 0253 until manually unheld Given 05/30/2025 10:00 PM EDT 2.5 mg Given 05/30/2025 11:52 AM EDT 2.5 mg Given 05/29/2025 8:54 PM EDT 2.5 mg bisacodyL (DULCOLAX) suppository 10 mg 10 mg, rectal, Daily PRN, constipation, Starting on Tue05/27/25 at 1037, For 1 dose Given 05/27/2025 10:17 PM EDT 10 mg bumetanide (BUMEX) 10 mg in 40 mL infusion 0.5 mg/hr (2 mL/hr), intravenous, Continuous, Starting on 05/25/25 at 2015, CONTACT PRESCRIBER: If urine output LESS than 30-35 mLs/hr over 2 hours Rate/Dose Verify 05/26/2025 6:40 AM EDT 0.5 mg/hr 2 mL/hr Rate/Dose Verify 05/26/2025 4:42 AM EDT 0.5 mg/hr 2 mL/hr Rate/Dose Verify 05/26/2025 3:15 AM EDT 0.5 mg/hr 2 mL/hr bumetanide (BUMEX) injection 2 mg 2 mg, intravenous, Once, On 05/25/25 at 1115, For 1 dose Given 05/25/2025 11:29 AM EDT 2 mg calcium gluconate 1 gram/50 mL IVPB (premix) 1 g 1 g, intravenous, at 50 mL/hr, Administer over 60 Minutes, Once, On 05/25/25 at 1630, For 1 dose New Bag 05/25/2025 4:11 PM EDT 1 g 50 mL/hr calcium gluconate 1 gram/50 mL IVPB (premix) 1 g 1 g, intravenous, at 50 mL/hr, Administer over 60 Minutes, Once, On 05/26/25 at 0615, For 1 dose New Bag 05/26/2025 6:10 AM EDT 1 g 50 mL/hr calcium gluconate 2 gram/100 mL IVPB (premix) 2 g 2 g, intravenous, at 100 mL/hr, Administer over 60 Minutes, Once, On 05/25/25 at 0945, For 1 dose New Bag 05/25/2025 9:36 AM EDT 2 g 100 mL/hr calcium gluconate 2 gram/100 mL IVPB (premix) 2 g 2 g, intravenous, at 100 mL/hr, Administer over 60 Minutes, Once, On 05/25/25 at 2015, For 1 dose New Bag 05/25/2025 8:19 PM EDT 2 g 100 mL/hr calcium gluconate 2 gram/100 mL IVPB (premix) 2 g 2 g, intravenous, at 100 mL/hr, Administer over 60 Minutes, Once, On Tue05/26/25 at 0130, For 1 dose New Bag 05/26/2025 2:06 AM EDT 2 g 100 mL/hr calcium gluconate 2 gram/100 mL IVPB (premix) 2 g 2 g, intravenous, at 100 mL/hr, Administer over 60 Minutes, Once, On Tue05/26/25 at 2315, For 1 dose New 05/26/2025 11:48 PM EDT 2 g 100 mL/hr calcium gluconate 2 gram/100 mL IVPB (premix) 2 g 2 g, intravenous, at 100 mL/hr, Administer over 60 Minutes, Once, On Tue05/27/25 at 0530, For 1 dose New 05/27/2025 7:38 AM EDT 2 g 100 mL/hr calcium gluconate 2 gram/100 mL IVPB (premix) 2 g 2 g, intravenous, at 100 mL/hr, Administer over 60 Minutes, Once, On Tue05/27/25 at 1715, For 1 dose New 05/27/2025 5:08 PM EDT 2 g 100 mL/hr calcium gluconate 2 gram/100 mL IVPB (premix) 2 g 2 g, intravenous, at 100 mL/hr, Administer over 60 Minutes, Once, On Tue05/28/25 at 0615, For 1 dose New 05/28/2025 6:15 AM EDT 2 g 100 mL/hr calcium gluconate 2 gram/100 mL IVPB (premix) 2 g 2 g, intravenous, at 100 mL/hr, Administer over 60 Minutes, Once, On Tue05/28/25 at 2330, For 1 dose New 05/28/2025 11:57 PM EDT 2 g 100 mL/hr calcium gluconate 2 gram/100 mL IVPB (premix) 2 g 2 g, intravenous, at 100 mL/hr, Administer over 60 Minutes, Once, On Tue05/29/25 at 0630, For 1 dose New 05/29/2025 7:17 AM EDT 2 g 100 mL/hr cefTRIAXone (ROCEPHIN) 1 g in sterile water 10 mL IV syringe 1 g, intravenous, Administer over 3 Minutes, Every 24 hours, First dose on Tue05/21/25 at 0845, For 7 days, Do not administer simultaneously with any calcium containing solutions via a Y-site in any patient., Indication: Urinary Tract/Genitourinary Given 05/21/2025 8:46 AM EDT 1 g cefTRIAXone (ROCEPHIN) 1 g in sterile water 10 mL IV syringe 1 g, intravenous, Administer over 3 Minutes, Every 24 hours, First dose on Tue05/24/25 at 1500, For 5 days, Do not administer simultaneously with any calcium containing solutions via a Y-site in any patient., Indication: Urinary Tract/Genitourinary Given 05/27/2025 2:10 PM EDT 1 g Given 05/26/2025 2:01 PM EDT 1 g Given 05/25/2025 3:11 PM EDT 1 g cefTRIAXone (ROCEPHIN) 1 g in sterile water 10 mL IV syringe 1 g, intravenous, Administer over 3 Minutes, Once, On Tue05/28/25 at 1645, For 1 dose, Do not administer simultaneously with any calcium containing solutions via a Y-site in any patient., Indication: Urinary Tract/Genitourinary Given 05/28/2025 4:34 PM EDT 1 g dexAMETHasone (DECADRON) injection 4 mg 4 mg, intravenous, Once, On Tue05/20/25 at 0445, For 1 dose Given 05/20/2025 5:27 AM EDT 4 mg dexmedeTOMIDine (PRECEDEX) 200 mcg in sodium chloride 0.9 % 50 mL (4 mcg/mL) infusion 0.2-1.5 mcg/kg/hr 67.1 kg (3.355-25.1625 mL/hr, rounded to 3.36-25.16 mL/hr), intravenous, Continuous, Starting on Tue05/27/25 at 1715, *If the patient FAILS the SAT, the RN will restart previously ordered sedative at one-half of the dose given prior to beginning the SAT* GOAL EFFECT: Titrate to target RASS goal INITIAL RATE: 0.2 mcg/kg/hr USUAL DOSE RANGE: 0.2 - 1.5 mcg/kg/hr TITRATION DOSE: 0.1 mcg/kg/hr TITRATION FREQUENCY: 15 mins CONTACT PRESCRIBER: -If RASS goal NOT achieved at maximum rate *Individual cases may deviate from parameters and would REQUIRE an order from the provider documented in the patient record* Rate/Dose Change 05/28/2025 11:15 PM EDT 0.2 mcg/kg/hr 3.36 mL/hr Rate/Dose Change 05/28/2025 11:00 PM EDT 0.3 mcg/kg/hr 5.0 3 mL/hr Rate/Dose Change 05/28/2025 10:42 PM EDT 0.4 mcg/kg/hr 6.7 1 mL/hr dextrose (D50W) 50% injection - ADS Override Pull Starting on Tue05/23/25 at 0856, For 1 dose dextrose (D50W) 50% injection - ADS Override Pull Starting on Tue05/24/25 at 0506, For 1 dose Given 05/24/2025 5:30 AM EDT dextrose (D50W) 50% injection 12.5 g 12.5 g, intravenous, Every 15 min PRN, low blood sugar, moderate hypoglycemia *Patient is Unconscious, NPO, unable to swallow: BG 54 - 69 mg/dl*, Starting on Tue05/23/25 at 2325 Given 05/25/2025 11:49 AM EDT 12.5 g Given 05/25/2025 11:31 AM EDT 12.5 g Given 05/24/2025 12:09 AM EDT 12.5 g dextrose (D50W) 50% injection 12.5 g 12.5 g, intravenous, Every 15 min PRN, low blood sugar, moderate hypoglycemia *Patient is Unconscious, NPO, unable to swallow: BG 54 - 69 mg/dl*, Starting on Tue05/29/25 at 1930 Given 06/05/2025 8:20 AM EDT 12.5 g Given 05/31/2025 11:40 AM EDT 12.5 g dextrose (D50W) 50% injection 25 g 25 g, intravenous, Once, On Tue05/23/25 at 0930, For 1 dose Given 05/23/2025 9:01 AM EDT 25 g dextrose (D50W) 50% injection 25 g 25 g, intravenous, Every 15 min PRN, low blood sugar, severe hypoglycemia *Patient is Unconscious, NPO, unable to swallow: BG LESS than 54 mg/dL*, Starting on Tue05/23/25 at 2325 Given 05/24/2025 5:31 PM EDT 25 g dextrose (D50W) 50% injection 25 g 25 g, intravenous, Every 15 min PRN, low blood sugar, severe hypoglycemia *Patient is Unconscious, NPO, unable to swallow: BG LESS than 54 mg/dL*, Starting on Tue05/29/25 at 1930 dextrose (D50W) 50% injection 50 mL 50 mL, intravenous, Once, On Tue05/23/25 at 2345, For 1 dose Given 05/23/2025 11:28 PM EDT 50 mL dextrose 10 % infusion 50 mL/hr, intravenous, Continuous, Starting on Tue05/24/25 at 0545, For 6 hours New Bag 05/24/2025 5:31 AM EDT 50 mL/hr 50 mL/hr dextrose 10 % infusion 50 mL/hr, intravenous, Continuous, Starting on Tue05/24/25 at 1230, For 6 hours Restarted 05/24/2025 12:38 PM EDT 50 mL/hr 50 mL/hr dextrose 15 gram/60 mL oral solution 15 g 15 g, oral, Every 15 min PRN, low blood sugar, hypoglycemia *Patient conscious AND able to drink and swallow safely*, Starting on Tue05/29/25 at 1930 dextrose 15 gram/60 mL oral solution 30 g 30 g, oral, Every 15 min PRN, low blood sugar, hypoglycemia *Patient conscious AND able to drink and swallow safely*, Starting on Tue05/29/25 at 1930 dextrose 5 % and sodium chloride 0.9 % with KCl 20 mEq/L infusion 100 mL/hr, intravenous, Continuous, Starting on Tue05/19/25 at 1800 New Bag 05/21/2025 1:10 AM EDT 100 mL/hr 100 mL/hr New Bag 05/20/2025 2:46 PM EDT 100 mL/hr 100 mL/hr New Bag 05/20/2025 3:59 AM EDT 100 mL/hr 100 mL/hr digoxin (LANOXIN) tablet 125 mcg 125 mcg, oral, User specified (Once per day on Tuesday), First dose on Tue05/16/25 at 1700, Take every day except Tuesday and Tuesday, On hold since Tue05/20/2025 at 1445 until manually unheld Given 05/19/2025 5:03 PM EDT 125 mcg Given 05/18/2025 4:02 PM EDT 125 mcg Given 05/17/2025 5:44 PM EDT 125 mcg digoxin (LANOXIN) tablet 125 mcg 125 mcg, oral, Once, On Jillian 05/23/25 at 1545, For 1 dose Given 05/23/2025 4:05 PM EDT 125 mcg fentaNYL (PF) (SUBLIMAZE) injection intravenous, As needed, Starting on 05/20/25 at 1212, Intraprocedure Given 05/20/2025 12:12 PM EDT 25 mcg fentaNYL (PF) (SUBLIMAZE) injection intravenous, As needed, Starting on 05/27/25 at 1610, Intraprocedure Given 05/27/2025 4:10 PM EDT 25 mcg fludrocortisone (FLORINEF) tablet 0.1 mg 0.1 mg, oral, Daily, First dose on Tue05/29/25 at 0900 Given 05/30/2025 11:54 AM EDT 0.1 mg Given 05/29/2025 8:28 AM EDT 0.1 mg fludrocortisone (FLORINEF) tablet 0.1 mg 0.1 mg, oral, 2 times daily, First dose on Tue05/31/25 at 1400 Given 06/01/2025 12:43 PM EDT 0.1 mg Given 05/31/2025 10:27 PM EDT 0.1 mg Given 05/31/2025 2:16 PM EDT 0.1 mg fludrocortisone (FLORINEF) tablet 0.1 mg 0.1 mg, oral, Daily, First dose (after last modification) on Tue06/02/25 at 0900 Given 06/02/2025 9:53 AM EDT 0.1 mg fluticasone propionate (FLONASE) 50 mcg/actuation nasal spray 2 spray 2 spray, Each Nostril, Daily, First dose on Jillian 05/16/25 at 0900, Shake gently. Before first use, prime pump (press 6 times until fine spray appears). After use, clean tip and replace cap. Given 06/05/2025 8:24 AM EDT 2 sprays Given 06/04/2025 8:21 AM EDT 2 sprays Given 06/03/2025 9:21 AM EDT 2 sprays four-factor human prothrombin complex concentrate (BALFAXAR) 2,000 Units in sterile water 80 mL infusion 2,000 Units, intravenous, at 480 mL/hr, Administer over 10 Minutes, Once, On Tue05/31/25 at 0400, For 1 dose, Do NOT exceed rate of 504 mL/hr (8.4 mL/min). WITH DOCUMENTATION OF EACH ADMINISTRATION, NURSE ASSURES VISUAL INSPECTION OF THE PRODUCT. *Pharmacy will round doses to nearest vial size* Given 05/31/2025 4:36 AM EDT 2,000 Units 480 mL/hr gabapentin (NEURONTIN) capsule 100 mg 100 mg, oral, Nightly, First dose on Tue05/15/25 at 2315, On hold since Tue05/21/2025 at 1234 until manually unheld Given 05/20/2025 9:26 PM EDT 100 mg Given 05/18/2025 8:57 PM EDT 100 mg Given 05/17/2025 8:43 PM EDT 100 mg gadoterate meglumine (CLARISCAN, DOTAREM) injection 10 mL 10 mL, intravenous, Once in imaging, Starting on 05/18/25 at 1401, For 1 dose Given 05/18/2025 2:01 PM EDT 10 mL glucagon HCL injection 1 mg 1 mg, intramuscular, Once as needed, low blood sugar, severe hypoglycemia, Starting on Jillian 05/23/25 at 2325, For 1 dose Given 05/24/2025 5:23 AM EDT 1 mg Right Anterior Thigh glucagon HCL injection 1 mg 1 mg, intramuscular, Once as needed, low blood sugar, severe hypoglycemia, Starting on Tue05/29/25 at 1930, For 1 dose haloperidol lactate (HALDOL) injection 1 mg 1 mg, intravenous, Once as needed, agitation, Starting on Tue05/15/25 at 2356, For 1 dose, May be ordered via either intramuscular or intravenous route. If ordered IV, maximum of 5 mg/minute. Given 05/16/2025 12:02 AM EDT 1 mg heparin (UFH) bolus from infusion 1,944 Units 1,944 Units (40 Units/kg 48.6 kg), intravenous, Every 6 hours PRN, Per current aPTT result, Starting on Jillian 05/16/25 at 1651, Bolus from infusion. Suggested bolus infusion time is over 10 minutes., Indication: Treatment of Venous Thromboembolism (i.e. VTE,PE) Bolus from Bag 05/17/2025 2:30 AM EDT 1,944 Units heparin (UFH) bolus from infusion 1,944 Units 1,944 Units (40 Units/kg 48.6 kg), intravenous, Every 6 hours PRN, Per current Anti-Xa result, Starting on Jillian 05/23/25 at 1552, Bolus from infusion. Suggested bolus infusion time is over 10 minutes., Indication: Treatment of Venous Thromboembolism (i.e. VTE,PE) Bolus from Bag 05/24/2025 7:14 PM EDT 1,944 Units heparin (UFH) bolus from infusion 3,888 Units 3,888 Units (80 Units/kg 48.6 kg), intravenous, Once, On Jillian 05/16/25 at 1330, For 1 dose, *Initial bolus for patients LESS than 100 kg* *Maximum dose 8000 units* Bolus from infusion. Suggested bolus infusion time is over 10 minutes., Indication: Treatment of Venous Thromboembolism (i.e. VTE,PE) Bolus from Bag 05/16/2025 2:58 PM EDT 3,888 Units heparin (UFH) bolus from infusion 3,888 Units 3,888 Units (80 Units/kg 48.6 kg), intravenous, Once, On Jillian 05/23/25 at 1215, For 1 dose, *Initial bolus for patients LESS than 100 kg* *Maximum dose 8000 units* Bolus from infusion. Suggested bolus infusion time is over 10 minutes., Indication: Treatment of Venous Thromboembolism (i.e. VTE,PE) Bolus from Bag 05/23/2025 3:26 PM EDT 3,888 Units heparin (UFH) in 5% dextrose 25,000 Units/250 mL (100 Units/mL) infusion 20 Units/kg/hr 48.6 kg (9.72 mL/hr, rounded to 9.7 mL/hr), intravenous, Continuous, Starting on Jillian 05/16/25 at 1330 New Bag 05/20/2025 5:30 PM EDT 18 Units/kg/hr 8.7 mL/hr New Bag 05/18/2025 4:48 PM EDT 18 Units/kg/hr 8.7 mL/hr Rate/Dose Change 05/17/2025 9:56 PM EDT 18 Units/kg/hr 8.7 mL/hr heparin (UFH) in 5% dextrose 25,000 Units/250 mL (100 Units/mL) infusion 18 Units/kg/hr 48.6 kg (8.748 mL/hr, rounded to 8.7 mL/hr), intravenous, Continuous, Starting on Jillian 05/23/25 at 1215 New Bag 05/23/2025 3:23 PM EDT 18 Units/kg/hr 8.7 mL/hr heparin (UFH) in 5% dextrose 25,000 Units/250 mL (100 Units/mL) infusion 15 Units/kg/hr 48.6 kg (7.29 mL/hr, rounded to 7.3 mL/hr), intravenous, Continuous, Starting on Tue05/24/25 at 0245 New Bag 05/24/2025 2:30 AM EDT 15 Units/kg/hr 7.3 mL/hr heparin (UFH) in 5% dextrose 25,000 Units/250 mL (100 Units/mL) infusion 13 Units/kg/hr 62.2 kg (8.086 mL/hr, rounded to 8.1 mL/hr), intravenous, Continuous, Starting on Tue05/24/25 at 0345 Rate/Dose Verify 05/25/2025 11:54 AM EDT 13 Units/kg/hr 8.1 mL/hr Rate/Dose Verify 05/25/2025 10:20 AM EDT 13 Units/kg/hr 8. 1 mL/hr Restarted 05/25/2025 9:56 AM EDT 13 Units/kg/hr 8.1 mL/hr heparin (UFH) in 5% dextrose 25,000 Units/250 mL (100 Units/mL) infusion 13 Units/kg/hr 67.5 kg (8.775 mL/hr, rounded to 8.8 mL/hr), intravenous, Continuous, Starting on 05/25/25 at 1300, For 3 days 19 hours New Bag 05/29/2025 3:34 AM EDT 13 Units/kg/hr 8.8 mL/hr Rate/Dose Verify 05/28/2025 8:43 PM EDT 13 Units/kg/hr 8.8 mL/hr Rate/Dose Change 05/28/2025 6:26 PM EDT 13 Units/kg/hr 8.8 mL/hr iopamidoL (ISOVUE-370) 370 mg iodine /mL (76 %) injection 90 mL 90 mL, intravenous, Once in imaging, Starting on Jillian 05/16/25 at 1343, For 1 dose Given 05/16/2025 1:45 PM EDT 90 mL letrozole (FEMARA) tablet 2.5 mg 2.5 mg, oral, Daily, First dose on Jillian 05/16/25 at 0900, Antineoplastic Hazardous Medication Intact: - Single pair of ASTM standard [id number] certified gloves - Eye/face protection if vomit or potential to spit up Manipulated: - Double pair of ASTM standard [id number] certified gloves - Eye/face protection if vomit or potential to spit up - Staff at reproductive risk must also wear a hazardous gown - Crushing must be performed in sealed closed pouch - Splitting/cutting should be performed by pharmacy, if possible Given for Pain 05/24/2025 9:17 AM EDT 2.5 mg Given 05/23/2025 10:31 AM EDT 2.5 mg Given 05/22/2025 8:22 AM EDT 2.5 mg lidocaine (XYLOCAINE) 1 % injection As needed, Starting on Tue05/20/25 at 1234, Intraprocedure Given 05/20/2025 12:34 PM EDT 5 mL lidocaine-EPINEPHrine (XYLOCAINE W/EPI) 1 %-1:100,000 injection As needed, Starting on Tue05/27/25 at 1621, Intraprocedure Given 05/27/2025 4:21 PM EDT 7 mL LORazepam (ATIVAN) injection 0.5 mg 0.5 mg, intravenous, Once, On 05/27/25 at 0530, For 1 dose, Prior to IV use, lorazepam injection should be DILUTED with an equal volume of compatible solution; Rate of administration should NOT exceed 2 mg/min. Given 05/27/2025 5:07 AM EDT 0 .5 mg LORazepam (ATIVAN) injection 0.5 mg 0.5 mg, intravenous, Once, On Jillian 05/30/25 at 0045, For 1 dose, Prior to IV use, lorazepam injection should be DILUTED with an equal volume of compatible solution; Rate of administration should NOT exceed 2 mg/min. Given 05/30/2025 12:30 AM E DT 0.5 mg LORazepam (ATIVAN) injection 1 mg 1 mg, intravenous, Once, On Jillian 05/30/25 at 0745, For 1 dose, Prior to IV use, lorazepam injection should be DILUTED with an equal volume of compatible solution; Rate of administration should NOT exceed 2 mg/min. Given 05/30/2025 8:08 AM EDT 1 mg LORazepam (ATIVAN) injection 1 mg 1 mg, intravenous, Every 6 hours PRN, anxiety, restless/agitation, Starting on Jillian 05/30/25 at 1557, Prior to IV use, lorazepam injection should be DILUTED with an equal volume of compatible solution; Rate of administration should NOT exceed 2 mg/min. Given 06/02/2025 12:03 PM EDT 1 mg Given 06/02/2025 4:52 AM EDT 1 mg Given 06/01/2025 11:14 AM EDT 1 mg LORazepam (ATIVAN) tablet 0.5 mg 0.5 mg, oral, Once as needed, anxiety, Starting on Jillian 05/30/25 at 0000, For 1 dose magnesium sulfate 2 gram/50 mL (4 %) IVPB 2 g 2 g, intravenous, at 25 mL/hr, Administer over 2 Hours, Once, On 05/25/25 at 1600, For 1 dose New Bag 05/25/2025 4:03 PM EDT 2 g 25 mL/hr magnesium sulfate 2 gram/50 mL (4 %) IVPB 2 g 2 g, intravenous, at 25 mL/hr, Administer over 2 Hours, Once, On Tue05/28/25 at 2330, For 1 dose New Bag 05/28/2025 11:57 PM EDT 2 g 25 mL/hr magnesium sulfate 2 gram/50 mL (4 %) IVPB 2 g 2 g, intravenous, at 25 mL/hr, Administer over 2 Hours, Once, On Tue06/01/25 at 0915, For 1 dose New Bag 06/01/2025 12:44 PM EDT 2 g 25 mL/hr magnesium sulfate 2 gram/50 mL (4 %) IVPB 2 g 2 g, intravenous, at 25 mL/hr, Administer over 2 Hours, Once, On Tue06/03/25 at 0900, For 1 dose New Bag 06/03/2025 9:19 AM EDT 2 g 25 mL/hr metoprolol tartrate (LOPRESSOR) 5 mg/5 mL injection - ADS Override Pull Starting on Tue05/28/25 at 1243, For 1 dose, Created by odalis override metoprolol tartrate (LOPRESSOR) injection 2.5 mg 2.5 mg, intravenous, Every 6 hours, First dose on Tue05/25/25 at 1500, For IV Push - Administer undiluted over 2 minutes Given 05/29/2025 8:29 AM EDT 2.5 mg Given 05/27/2025 8:01 PM EDT 2.5 mg Given 05/27/2025 3:24 AM EDT 2.5 mg metoprolol tartrate (LOPRESSOR) injection 2.5 mg 2.5 mg, intravenous, Every 4 hours PRN, sustained HR >130, Starting on 05/25/25 at 1442, For IV Push - Administer undiluted over 2 minutes Given 06/01/2025 11:03 AM EDT 2.5 mg Given 05/31/2025 7:48 AM EDT 2.5 mg Given for Pain 05/30/2025 9:46 AM EDT 2.5 mg metoprolol tartrate (LOPRESSOR) injection 2.5 mg 2.5 mg, intravenous, Once, On Tue05/28/25 at 1300, For 1 dose, For IV Push - Administer undiluted over 2 minutes Given 05/28/2025 2:12 PM EDT 2.5 mg Given 05/28/2025 12:45 PM EDT 2.5 mg metoprolol tartrate (LOPRESSOR) injection 5 mg 5 mg, intravenous, Every 6 hours PRN, other, give for hr sustained >120, Starting on Tue05/15/25 at 2355, For IV Push - Administer undiluted over 2 minutes Given for Pain 05/24/2025 9:16 AM EDT 5 mg Given 05/23/2025 4:51 AM EDT 5 mg Given 05/22/2025 5:34 AM EDT 5 mg metoprolol tartrate (LOPRESSOR) injection 5 mg 5 mg, intravenous, Every 6 hours, First dose on 05/19/25 at 1530, For IV Push - Administer undiluted over 2 minutes, Indications: hold for SBP <90mmHg or HR <60Indications:hold for SBP <90mmHg or HR <60 Given 05/22/2025 2:43 PM EDT 5 mg Given 05/22/2025 8:25 AM EDT 5 mg Given 05/22/2025 1:49 AM EDT 5 mg metoprolol tartrate (LOPRESSOR) injection 5 mg 5 mg, intravenous, Every 6 hours, First dose (after last modification) on Tue05/24/25 at 1400, For IV Push - Administer undiluted over 2 minutes Given 05/24/2025 1:54 PM EDT 5 mg metoprolol tartrate (LOPRESSOR) injection 5 mg 5 mg, intravenous, Every 4 hours PRN, sustained HR >130, Starting on Tue05/24/25 at 1755, For IV Push - Administer undiluted over 2 minutes Given 05/25/2025 6:39 AM EDT 5 mg Given 05/25/2025 12:55 AM EDT 5 mg Given 05/24/2025 8:04 PM EDT 5 mg metoprolol tartrate (LOPRESSOR) tablet 25 mg 25 mg, oral, Every 6 hours, First dose on Tue05/29/25 at 1030, Hold SBP <90 or HR <65 Given 05/30/2025 11:53 AM EDT 25 mg Given 05/29/2025 10:08 PM EDT 25 mg Given 05/29/2025 4:11 PM EDT 25 mg metoprolol tartrate (LOPRESSOR) tablet 25 mg 25 mg, oral, Every 6 hours, First dose (after last modification) on Tue05/31/25 at 1630, Hold SBP <90 or HR <65 Given 06/04/2025 10:31 AM EDT 25 mg Given 06/04/2025 5:20 AM EDT 25 mg Given 06/03/2025 11:25 PM EDT 25 mg metoprolol tartrate (LOPRESSOR) tablet 37.5 mg 37.5 mg, oral, Every 6 hours, First dose (after last modification) on Tue05/30/25 at 1630, Hold SBP <90 or HR <65 Given 05/31/2025 10:39 AM EDT 37.5 mg Given 05/30/2025 10:00 PM EDT 37.5 mg metoprolol tartrate (LOPRESSOR) tablet 50 mg 50 mg, oral, 3 times daily, First dose on Tue05/16/25 at 1000 Given 05/17/2025 8:09 AM EDT 50 mg Given 05/16/2025 10:33 PM EDT 50 mg Given 05/16/2025 1:23 PM EDT 50 mg metoprolol tartrate (LOPRESSOR) tablet 50 mg 50 mg, oral, Every 6 hours, First dose (after last modification) on Tue05/17/25 at 1500 Given 05/23/2025 5:22 PM EDT 50 mg Given 05/23/2025 10:32 AM EDT 50 mg Given 05/23/2025 5:40 AM EDT 50 mg metoprolol tartrate (LOPRESSOR) tablet 50 mg 50 mg, oral, 2 times daily, First dose (after last modification) on Tue06/04/25 at 2100, Hold SBP <90 or HR <65 Given 06/05/2025 8:22 AM EDT 50 mg Given 06/04/2025 8:56 PM EDT 50 mg midazolam (VERSED) injection intravenous, As needed, Starting on Tue05/20/25 at 1212, Intraprocedure Given 05/20/2025 12:12 PM EDT 0.5 mg midazolam (VERSED) injection intravenous, As needed, Starting on Tue05/27/25 at 1610, Intraprocedure Given 05/27/2025 4:10 PM EDT 0.5 mg midodrine (PROAMATINE) tablet 10 mg 10 mg, oral, 3 times daily before meals, First dose (after last modification) on Tue05/19/25 at 1630, Hold for SBP>100 Given 06/05/2025 3:54 PM EDT 10 mg Given 06/04/2025 4:50 PM EDT 10 mg Given 06/03/2025 6:04 PM EDT 10 mg midodrine (PROAMATINE) tablet 5 mg 5 mg, oral, 3 times daily before meals, First dose on Tue05/17/25 at 1300 Given 05/19/2025 11:22 AM EDT 5 mg Given for Pain 05/19/2025 6:37 AM EDT 5 mg Given 05/18/2025 4:02 PM EDT 5 mg multivitamin tablet 1 tablet 1 tablet (1 each), oral, Daily, First dose on 05/18/25 at 1300 Given 06/05/2025 8:23 AM EDT 1 tablet Given 06/04/2025 8:15 AM EDT 1 tablet Given 06/03/2025 9:19 AM EDT 1 tablet naloxone (NARCAN) injection 0.04 mg 0.04 mg, intravenous, As needed, opioid reversal, Starting on Tue05/15/25 at 2321, For 10 doses, Give IVP every 2 minutes up to 10 doses total as needed for opioid reversal OLANZapine (ZyPREXA ZYDIS) disintegrating tablet 5 mg 5 mg, oral, 2 times daily PRN, delirium, Starting on Tue05/29/25 at 0631, Tablets should NOT be swallowed whole, chewed, broken, or crushed. Place tablet in mouth, allow to dissolve, and then swallow saliva with or without water. Given 05/31/2025 10:39 AM EDT 5 mg Given 05/29/2025 10:24 PM EDT 5 mg Given 05/29/2025 8:28 AM EDT 5 mg oxyCODONE (ROXICODONE) immediate release tablet 10 mg 10 mg, oral, Every 4 hours PRN, severe pain, Starting on Jillian 05/16/25 at 1632 Given 05/19/2025 8:14 AM EDT 10 mg Given 05/17/2025 5:43 PM EDT 10 mg Given 05/17/2025 8:09 AM EDT 10 mg oxyCODONE (ROXICODONE) immediate release tablet 5 mg 5 mg, oral, Every 4 hours PRN, moderate pain, Starting on Jillian 05/16/25 at 1633 Given 05/18/2025 5:09 AM EDT 5 mg oxyCODONE (ROXICODONE) immediate release tablet 5 mg 5 mg, oral, Every 4 hours PRN, severe pain, Starting on 05/19/25 at 0956 Given 06/04/2025 11:16 PM EDT 5 mg Given 05/31/2025 10:39 AM EDT 5 mg Given 05/26/2025 9:07 PM EDT 5 mg perflutren lipid microsphere (DEFINITY) 1.3 mL in sodium chloride 0.9% 8.7 mL injection 10 mL, intravenous, Administer over 10 Minutes, Once in imaging, Starting on 05/25/25 at 0923, For 1 dose potassium chloride (KLOR-CON M20) CR tablet 20 mEq 20 mEq, oral, Once, On Tue05/28/25 at 0615, For 1 dose, Tablet may be swallowed whole (do not crush/chew/suck on) OR broken in half and each half swallowed separately OR dissolved (whole tablet) in ~4 ounces of water (allow ~2 minutes to dissolve, stir well and administer immediately). Given 05/28/2025 6:23 AM EDT 20 mEq potassium chloride (KLOR-CON M20) CR tablet 20 mEq 20 mEq, oral, Once, On Tue06/02/25 at 0900, For 1 dose, Tablet may be swallowed whole (do not crush/chew/suck on) OR broken in half and each half swallowed separately OR dissolved (whole tablet) in ~4 ounces of water (allow ~2 minutes to dissolve, stir well and administer immediately). Given 06/02/2025 9:53 AM EDT 20 mEq potassium chloride (KLOR-CON M20) CR tablet 40 mEq 40 mEq, oral, Every 4 hours, First dose on 06/01/25 at 0815, For 3 doses, Tablet may be swallowed whole (do not crush/chew/suck on) OR broken in half and each half swallowed separately OR dissolved (whole tablet) in ~4 ounces of water (allow ~2 minutes to dissolve, stir well and administer immediately). Given 06/01/2025 3:29 PM EDT 40 mEq Given 06/01/2025 8:07 AM EDT 40 mEq potassium chloride (KLOR-CON M20) CR tablet 40 mEq 40 mEq, oral, Once, On Tue06/03/25 at 0900, For 1 dose, Tablet may be swallowed whole (do not crush/chew/suck on) OR broken in half and each half swallowed separately OR dissolved (whole tablet) in ~4 ounces of water (allow ~2 minutes to dissolve, stir well and administer immediately). Given 06/03/2025 9:20 AM EDT 40 mEq potassium chloride (KLOR-CON) packet 20 mEq 20 mEq, oral, Once, On Tue06/05/25 at 1030, For 1 dose, Dissolve each packet in 4 ounces of water = 5 mEq per 1 oz fluid. Given 06/05/2025 11:03 AM EDT 20 mEq potassium chloride 10 mEq/100 mL IVPB 10 mEq 10 mEq, intravenous, at 100 mL/hr, Administer over 1 Hours, Every 1 hour, First dose on Tue05/19/25 at 0930, For 4 doses New Bag 05/19/2025 12:40 PM EDT 10 mEq 100 mL/hr New Bag 05/19/2025 11:52 AM EDT 10 mEq 100 mL/hr New 05/19/2025 10:52 AM EDT 10 mEq 100 mL/hr potassium chloride 10 mEq/100 mL IVPB 10 mEq 10 mEq, intravenous, at 100 mL/hr, Administer over 1 Hours, Every 1 hour, First dose on Tue05/26/25 at 1315, For 2 doses New 05/26/2025 2:46 PM EDT 10 mEq 100 mL/hr New 05/26/2025 2:01 PM EDT 10 mEq 100 mL/hr potassium phosphates 15 mmol in sodium chloride 0.9 % 250 mL infusion 15 mmol, intravenous, at 41.7 mL/hr, Administer over 6 Hours, Once, On Tue05/29/25 at 0000, For 1 dose, Each 3 mmol contains 4.4 mEq potassium. New 05/28/2025 11:30 PM EDT 15 mmol 41.7 mL/hr rosuvastatin (CRESTOR) tablet 10 mg 10 mg, oral, Nightly, First dose (after last modification) on Tue05/21/25 at 2100, Can substitute (not letting me sub to atorvastatin), Was patient receiving rosuvastatin prior to admission? (See order restrictions above): Yes Given 06/04/2025 8:56 PM EDT 10 mg Given 06/03/2025 10:08 PM EDT 10 mg Given 06/02/2025 10:23 PM EDT 10 mg rosuvastatin (CRESTOR) tablet 40 mg 40 mg, oral, Nightly, First dose on Jillian 05/16/25 at 2100, Can substitute (not letting me sub to atorvastatin), Was patient receiving rosuvastatin prior to admission? (See order restrictions above): Yes Given 05/20/2025 9:25 PM EDT 40 mg Given 05/18/2025 8:57 PM EDT 40 mg Given 05/17/2025 8:43 PM EDT 40 mg sacubitriL-valsartan (ENTRESTO) 24-26 mg per tablet 1 tablet 1 tablet, oral, 2 times daily, First dose on Tue05/16/25 at 1300, Contraindicated in combination with FLORA inhibitors. Ensure a minimum of 36 hours between any FLORA inhibitor dose and sacubitril-valsartan., On hold since Tue05/17/2025 at 1135 until manually unheld Given 05/17/2025 8:10 AM EDT 1 tablet Given 05/16/2025 10:33 PM EDT 1 tablet Given 05/16/2025 1:23 PM EDT 1 tablet sacubitriL-valsartan (ENTRESTO) 24-26 mg per tablet 1 tablet 1 tablet, oral, 2 times daily, First dose on Tue06/04/25 at 1430, Contraindicated in combination with FLORA inhibitors. Ensure a minimum of 36 hours between any FLORA inhibitor dose and sacubitril-valsartan., On hold since Tue06/05/2025 at 0836 until manually unheld Given 06/05/2025 8:22 AM EDT 1 tablet Given 06/04/2025 8:56 PM EDT 1 tablet Given 06/04/2025 2:39 PM EDT 1 tablet sodium bicarbonate in dextrose 5 % 150 mEq/1150 mL infusion (Ordered as: sodium bicarbonate) 150 mEq, intravenous, at 75 mL/hr, Continuous, Starting on Tue05/24/25 at 1400 Rate/Dose Verify 05/25/2025 8:22 PM EDT 75 mL/h r Rate/Dose Verify 05/25/2025 3:39 PM EDT 75 mL/h r Rate/Dose Verify 05/25/2025 1:20 PM EDT 75 mL/h r sodium bicarbonate in dextrose 5 % 150 mEq/1150 mL infusion (Ordered as: sodium bicarbonate) 150 mEq, intravenous, at 50 mL/hr, Continuous, Starting on Tue05/25/25 at 2130 Rate/Dose Verify 05/28/2025 8:43 PM EDT 50 mL/h r Rate/Dose Verify 05/28/2025 6:17 PM EDT 50 mL/h r Rate/Dose Verify 05/28/2025 3:00 PM EDT 50 mL/h r sodium chloride 0.9 % bolus 1,000 mL 1,000 mL, intravenous, at 1,000 mL/hr, Administer over 1 Hours, Once, On Tue05/15/25 at 1933, For 1 dose New Bag 05/15/2025 7:42 PM EDT 1,000 mL 1000 mL/hr sodium chloride 0.9 % bolus 1,000 mL 1,000 mL, intravenous, at 1,000 mL/hr, Administer over 1 Hours, Once, On Tue05/17/25 at 1130, For 1 dose New Bag 05/17/2025 11:28 AM EDT 1,000 mL 1000 mL/hr sodium chloride 0.9 % bolus 100 mL 100 mL, intravenous, at 100 mL/hr, Administer over 1 Hours, Every 5 min PRN, For SBP LESS than 90 mmHg during hemodialysis/hemofiltration, Starting on Tue05/24/25 at 1207, For 5 doses, -For SBP LESS than 90 mmHg during hemodialysis -May repeat to a maximum of 500 mL -Nursing to try to calculate fluid bolus into removal if possible -Contact physician for further orders if needed sodium chloride 0.9 % bolus 250 mL 250 mL, intravenous, at 250 mL/hr, Administer over 1 Hours, Once, On Tue05/19/25 at 1300, For 1 dose New Bag 05/19/2025 1:41 PM EDT 250 mL 250 mL/hr sodium chloride 0.9 % bolus 250 mL 250 mL, intravenous, at 250 mL/hr, Administer over 1 Hours, Once, On Tue05/21/25 at 0845, For 1 dose New Bag 05/21/2025 8:46 AM EDT 250 mL 250 mL/hr sodium chloride 0.9 % bolus 500 mL 500 mL, intravenous, at 500 mL/hr, Administer over 1 Hours, Once, On Tue05/20/25 at 0300, For 1 dose New Bag 05/20/2025 2:46 AM EDT 500 mL 500 mL/hr sodium chloride 0.9 % flush 10 mL 10 mL, intravenous, 2 times daily, First dose on Tue05/15/25 at 2113 Given 06/05/2025 8:23 AM EDT 10 mL Given 06/04/2025 9:05 PM EDT 10 mL Given 06/04/2025 8:04 AM EDT 10 mL sodium chloride 0.9 % flush 10 mL 10 mL, intravenous, As needed, line care, Starting on Tue05/15/25 at 2112 Given 06/04/2025 9:04 PM EDT 10 mL Given 05/25/2025 8:25 PM EDT 10 mL sodium chloride 0.9 % flush 10 mL 10 mL, intravenous, Once, On Tue05/16/25 at 1400, For 1 dose Given 05/16/2025 1:45 PM EDT 10 mL sodium chloride 0.9 % flush bag 50 mL 50 mL, intravenous, Once, On Tue05/31/25 at 0400, For 1 dose, Flush tubing used to administer four-factor PCC (BALFAXAR, KCENTRA). Infuse at the same rate as four-factor PCC after four-factor PCC infused to ensure complete dose is delivered. New Bag 05/31/2025 4:00 AM EDT 50 mL sodium chloride 0.9 % infusion 75 mL/hr, intravenous, Continuous, Starting on Tue05/15/25 at 2113 New Bag 05/18/2025 11:53 PM EDT 75 mL/hr 75 mL/hr New Bag 05/17/2025 5:51 PM EDT 75 mL/hr 75 mL/hr Rate/Dose Change 05/17/2025 8:25 AM EDT 75 mL/hr 75 mL/h r sodium chloride 0.9 % infusion 75 mL/hr, intravenous, Continuous, Starting on Tue05/21/25 at 2245, For 1 day New Bag 05/22/2025 10:55 AM EDT 75 mL/hr 75 mL/hr New Bag 05/21/2025 10:35 PM EDT 75 mL/hr 75 mL/hr sodium chloride 0.9 % infusion 42 mL/hr, intravenous, As needed, pre-, and post- transfusion as needed for line flush purposes, in conjunction with blood product transfusion only, Starting on Tue05/31/25 at 0340, -Use only the amount required from a 250 mL bag of NS to adequately flush -A new NS bag is required with each new unit of blood administered sodium chloride 0.9 % infusion 42 mL/hr, intravenous, As needed, pre-, and post- transfusion as needed for line flush purposes, in conjunction with blood product transfusion only, Starting on Tue05/31/25 at 1439, -Use only the amount required from a 250 mL bag of NS to adequately flush -A new NS bag is required with each new unit of blood administered sodium zirconium cyclosilicate (LOKELMA) packet 10 g 10 g, oral, Once, On Tue05/23/25 at 0900, For 1 dose, empty the entire contents of the packet(s) into a drinking glass containing approximately 1.5 ounces (45 mL) water or more if desired. Stir well and drink immediately. If powder remains in the drinking glass, add water, stir and drink immediately. Repeat until no powder remains to ensure the entire dose is taken. Given 05/23/2025 10:31 AM EDT 10 g sodium zirconium cyclosilicate (LOKELMA) packet 10 g 10 g, oral, 2 times daily, First dose on Tue05/24/25 at 1430, empty the entire contents of the packet(s) into a drinking glass containing approximately 1.5 ounces (45 mL) water or more if desired. Stir well and drink immediately. If powder remains in the drinking glass, add water, stir and drink immediately. Repeat until no powder remains to ensure the entire dose is taken., On hold since Tue05/27/2025 at 0838 until manually unheld Given 05/26/2025 9:08 PM EDT 10 g Given 05/26/2025 8:18 AM EDT 10 g Given 05/25/2025 9:15 PM EDT 10 g spironolactone (ALDACTONE) tablet 12.5 mg 12.5 mg, oral, Daily, First dose on Tue05/16/25 at 1300, Hazardous Medication Intact: - Single pair of ASTM standard [id number] certified gloves - Eye/face protection if vomit or potential to spit up Manipulated: - Double pair of ASTM standard [id number] certified gloves - Eye/face protection if vomit or potential to spit up - Staff at reproductive risk must also wear a hazardous gown - Crushing must be performed in sealed closed pouch - Splitting/cutting should be performed by pharmacy, if possible, On hold since Tue05/17/2025 at 1135 until manually unheld Given 05/17/2025 8:09 AM EDT 12.5 mg Given 05/16/2025 1:23 PM EDT 12.5 mg spironolactone (ALDACTONE) tablet 12.5 mg 12.5 mg, oral, Daily, First dose on Tue06/04/25 at 1430, Hazardous Medication Intact: - Single pair of ASTM standard [id number] certified gloves - Eye/face protection if vomit or potential to spit up Manipulated: - Double pair of ASTM standard [id number] certified gloves - Eye/face protection if vomit or potential to spit up - Staff at reproductive risk must also wear a hazardous gown - Crushing must be performed in sealed closed pouch - Splitting/cutting should be performed by pharmacy, if possible Given 06/05/2025 8:23 AM EDT 12.5 mg Given 06/04/2025 2:39 PM EDT 12.5 mg tamoxifen (NOLVADEX) tablet 20 mg 20 mg, oral, Daily, First dose on Tue05/24/25 at 1300, Antineoplastic Hazardous Medication Intact: - Single pair of ASTM standard [id number] certified gloves - Eye/face protection if vomit or potential to spit up Manipulated: - Manipulation strongly discouraged and should be performed by pharmacy, if possible - Double pair of ASTM standard [id number] certified gloves - Hazardous gown - Eye/face protection if vomit or potential to spit up - Crushing must be performed in sealed closed pouch with respiratory protection in addition to PPE noted above Given 06/05/2025 8:23 AM EDT 20 mg Given 06/04/2025 8:15 AM EDT 20 mg Given 06/03/2025 9:20 AM EDT 20 mg tamsulosin (FLOMAX) 24 hr capsule 0.4 mg 0.4 mg, oral, Daily, First dose on Tue05/16/25 at 0900, For oral administration: capsules should be swallowed whole (Do not crush, chew, or open). For tube administration: open capsule and administer with water (granules should NOT be crushed)., On hold since Tue05/17/2025 at 1135 until manually unheld Given 05/17/2025 8:05 AM EDT 0.4 mg TC-99M medronate radio-isotope injection 24.8 millicurie 24.8 millicurie, intravenous, Once in imaging, Starting on Tue05/17/25 at 1000, For 1 dose Given 05/17/2025 10:01 AM EDT 24.8 millicurie s thiamine (VITAMIN B-1) tablet 100 mg 100 mg, oral, Daily, First dose on 05/18/25 at 1300 Given 06/05/2025 8:23 AM EDT 100 mg Given 06/04/2025 8:15 AM EDT 100 mg Given 06/03/2025 9:19 AM EDT 100 mg traMADoL (ULTRAM) tablet 50 mg 50 mg, oral, Every 8 hours PRN, moderate pain, Starting on Tue05/15/25 at 2321, Max of 300 mg daily for patients greater than 75 years of age. Given 05/16/2025 10:29 AM EDT 50 mg zoledronic acid (ZOMETA) IVPB pre-mix 4 mg 4 mg, intravenous, at 200 mL/hr, Administer over 30 Minutes, Once, On Jillian 05/16/25 at 0900, For 1 dose, Hazardous Medication - Double pair of ASTM standard [id number] certified gloves - Eye/face protection if liquid that could splash - Staff at reproductive risk must also wear a hazardous gown New Bag 05/16/2025 9:37 AM EDT 4 mg 200 mL/hr documented in this encounter Discontinued Medications Medication Sig Discontinue Reason Start Date End Da te warfarin sodium (COUMADIN ORAL) Take by mouth. Discontinued by another clinician 05/15/2025 METOPROLOL SUCCINATE ORAL Take by mouth. Discontinued by another clinician 05/15/2025 sotaloL (BETAPACE) 80 mg tablet Take 80 mg by mouth 2 times daily. Discontinued by another clinician 05/15/2025 lisinopriL (PRINIVIL,ZESTRIL) 5 mg tablet Take 5 mg by mouth daily. Discontinued by another clinician 05/15/2025 gabapentin (NEURONTIN) 300 mg capsule Take 300 mg by mouth 3 times daily. Discontinued by another clinician 05/15/2025 apixaban (ELIQUIS) 5 mg tablet Take 0.5 tablets (2.5 mg total) by mouth 2 (two) times a day. Stop Taking at Discharge 06/05/2025 digoxin (LANOXIN) 125 mcg (0.125 mg) tablet Take by mouth. Stop Taking at Discharge 06/05/2025 spironolactone (ALDACTONE) 25 mg tablet Take 0.5 tablets (12.5 mg total) by mouth. Stop Taking at Discharge 06/05/2025 docusate sodium (COLACE) 100 mg capsule Take 100 mg by mouth 2 times daily. Stop Taking at Discharge 06/05/2025 ipratropium/albuterol sulfate (COMBIVENT INHL) Inhale into the lungs. Stop Taking at Discharge 06/05/2025 furosemide (LASIX) 40 mg tablet Take 0.5 tablets (20 mg total) by mouth 1 (one) time each day. Stop Taking at Discharge 06/05/2025 letrozole (FEMARA) 2.5 mg tablet TAKE ONE TABLET BY MOUTH EVERY DAY Stop Taking at Discharge 08/27/2024 06/05/2025 metoprolol succinate (TOPROL-XL) 200 mg 24 hr tablet Take 1 tablet (200 mg total) by mouth 1 (one) time each day. Stop Taking at Discharge 06/05/2025 sacubitriL-valsartan (ENTRESTO) 24-26 mg per tablet Take 1 tablet by mouth 2 (two) times a day. Stop Taking at Discharge 05/13/2025 06/05/2025 traMADoL (ULTRAM) 50 mg tablet Take 1 tablet (50 mg total) by mouth every 8 (eight) hours if needed for moderate pain. Max Daily Amount: 150 mg Stop Taking at Discharge 05/10/2025 06/05/2025 documented as of this encounter Historical Medications * This list may reflect changes made after this encounter. potassium chloride (KLOR-CON M10) 10 mEq CR tablet Take 2 tablets (20 mEq total) by mouth 1 (one) time each day. [place] 0.02-0.005 % drops Administer 1 drop into both eyes 1 (one) time each day in the evening. 03/15/2025 acetaminophen (TYLENOL) 325 mg tablet Take 2 tablets (650 mg total) by mouth every 6 (six) hours if needed. traMADoL (ULTRAM) 50 mg tablet Take 1 tablet (50 mg total) by mouth every 8 (eight) hours if needed for moderate pain. Max Daily Amount: 150 mg 05/10/2025 sacubitriL-valsa rtan (ENTRESTO) 24-26 mg per tablet Take 1 tablet by mouth 2 (two) times a day. 05/13/2025 metoprolol succinate (TOPROL-XL) 200 mg 24 hr tablet Take 1 tablet (200 mg total) by mouth 1 (one) time each day. added in this encounter Active and Recently Administered Medications Times are shown in EDT. Scheduled Medication Order 06/03/2025 06/04/2025 06/05/2025 acetaminophen (TYLENOL) tablet 1,000 mg 1,000 mg, oral, Every 8 hours scheduled, First dose on Tue05/19/25 at 1400 0516 (Given - Provider: Sofia Melissa RN)1504 (Given - Provider: Tammy Hanson RN)2208 (Given - Provider: Nel Brar RN) 0651 (Given - Provider: Nel Brar RN)1420 (Given - Provider: Tammy Hanson RN)2100 (Given - Provider: Guerrero Du RN) 0539 (Given - Provider: Guerrero Du RN)1438 (Not Given - Provider: Penelope Ortiz RN - Reason: Patient/Resident/Age nt refused - education provided ) apixaban (ELIQUIS) tablet 2.5 mg 2.5 mg, oral, 2 times daily, First dose on Tue05/29/25 at 0800, Indication: Atrial Fibrillation, On hold since Tue05/31/2025 at 0253 until manually unheld 0900 (Not Given - Provider: Tammy Hanson RN - Reason: Other - Comment: on hold by provider)2099 (Dose Auto Held - Provider: ANY French) 0900 (Not Given - Provider: Tammy Hanson RN - Reason: Other - Comment: provider held)2099 (Not Given - Provider: Guerrero Du RN - Reason: Other - Comment: held by provider) 0900 (Not Given - Provider: Penelope Ortiz RN - Reason: Other - Comment: hold by md)2002 (Unheld by provider - Provider: Automatic Discharge Provider) fluticasone propionate (FLONASE) 50 mcg/actuation nasal spray 2 spray 2 spray, Each Nostril, Daily, First dose on Tue05/16/25 at 0900, Shake gently. Before first use, prime pump (press 6 times until fine spray appears). After use, clean tip and replace cap. 0921 (Given - Provider: Tammy Hanson RN) 0821 (Given - Provider: Tammy Hanson, JEANNE) 0824 (Given - Provider: Penelope Ortiz, JEANNE) magnesium sulfate 2 gram/50 mL (4 %) IVPB 2 g (COMPLETED) 2 g, intravenous, at 25 mL/hr, Administer over 2 Hours, Once, On Tue06/03/25 at 0900, For 1 dose 0919 (New Bag - Provider: Tammy Hanson RN)1119 (Stopped - Provider: Tammy Hanson RN) metoprolol tartrate (LOPRESSOR) tablet 25 mg (CANCELED) 25 mg, oral, Every 6 hours, First dose (after last modification) on Tue05/31/25 at 1630, Hold SBP <90 or HR <65 0516 (Given - Provider: Sofia Melissa RN)1226 (Given - Provider: Tammy Hanson RN)1804 (Given - Provider: Tammy Hanson RN)2325 (Given - Provider: Nel Brar, JEANNE) 0520 (Given - Provider: Nel Brar, JEANNE)1031 (Given - Provider: Tammy Hanson, JEANNE) metoprolol tartrate (LOPRESSOR) tablet 50 mg 50 mg, oral, 2 times daily, First dose (after last modification) on Tue06/04/25 at 2100, Hold SBP <90 or HR <65 2056 (Given - Provider: Guerrero Du RN) 0822 (Given - Provider: Penelope Ortiz, JEANNE) midodrine (PROAMATINE) tablet 10 mg 10 mg, oral, 3 times daily before meals, First dose (after last modification) on Tue05/19/25 at 1630, Hold for SBP>100 0919 (Given - Provider: Tammy Hanson RN)1226 (Given - Provider: Tammy Hanson RN)1804 (Given - Provider: Tammy Hanson RN) 0658 (Hold - Provider: Nel Brar RN - Reason: Change in vital signs - Comment: sbp 130)1226 (Not Given - Provider: Tammy Hanson RN - Reason: Order parameters not met)1650 (Given - Provider: Tammy Hanson RN) 0640 (Not Given - Provider: Guerrero Du RN - Reason: Order parameters not met - Comment: BP 106/52)1142 (Not Given - Provider: Penelope Ortiz RN - Reason: Contraindicated)1554 (Given - Provider: Penelope Ortiz RN) multivitamin tablet 1 tablet 1 tablet (1 each), oral, Daily, First dose on 05/18/25 at 1300 0919 (Given - Provider: Tammy Hanson RN) 0815 (Given - Provider: Tammy Hanson RN) 0823 (Given - Provider: Penelope Ortiz RN) perflutren lipid microsphere (DEFINITY) 1.3 mL in sodium chloride 0.9% 8.7 mL injection 10 mL, intravenous, Administer over 10 Minutes, Once in imaging, Starting on 05/25/25 at 0923, For 1 dose potassium chloride (KLOR-CON M20) CR tablet 40 mEq (COMPLETED) 40 mEq, oral, Once, On 06/03/25 at 0900, For 1 dose, Tablet may be swallowed whole (do not crush/chew/suck on) OR broken in half and each half swallowed separately OR dissolved (whole tablet) in ~4 ounces of water (allow ~2 minutes to dissolve, stir well and administer immediately). 0920 (Given - Provider: Tammy Hanson RN) potassium chloride (KLOR-CON) packet 20 mEq (COMPLETED) 20 mEq, oral, Once, On 06/05/25 at 1030, For 1 dose, Dissolve each packet in 4 ounces of water = 5 mEq per 1 oz fluid. 1103 (Given - Provider: Penelope Ortiz RN) rosuvastatin (CRESTOR) tablet 10 mg 10 mg, oral, Nightly, First dose (after last modification) on Tue05/21/25 at 2100, Can substitute (not letting me sub to atorvastatin), Was patient receiving rosuvastatin prior to admission? (See order restrictions above): Yes 2207 (Given - Provider: Nel Brar, JEANNE) 2055 (Given - Provider: Guerrero Du, JEANNE) sacubitriL-valsartan (ENTRESTO) 24-26 mg per tablet 1 tablet 1 tablet, oral, 2 times daily, First dose on Tue06/04/25 at 1430, Contraindicated in combination with FLORA inhibitors. Ensure a minimum of 36 hours between any FLORA inhibitor dose and sacubitril-valsartan., On hold since Tue06/05/2025 at 0836 until manually unheld 1438 (Given - Provider: Tammy Hanson RN)2055 (Given - Provider: Guerrero Du, JEANNE) 08 (Given - Provider: Penelope Ortiz RN)08 (Held by provider - Provider: Kia Le MD - Reason: Change in vital signs)2002 (Unheld by provider - Provider: Automatic Discharge Provider) sodium chloride 0.9 % flush 10 mL(Linked Group 1) 10 mL, intravenous, 2 times daily, First dose on Tue05/15/25 at 2113 1225 (Given - Provider: Tammy Hanson RN)2208 (Given - Provider: Nel Brar RN) 08 (Given - Provider: Tammy Hanson RN)2104 (Given - Provider: Guerrero Du RN) 0823 (Given - Provider: Penelope Ortiz RN) spironolactone (ALDACTONE) tablet 12.5 mg (CANCELED) 12.5 mg, oral, Daily, First dose on Tue06/04/25 at 1430, Hazardous Medication Intact: - Single pair of ASTM standard [id number] certified gloves - Eye/face protection if vomit or potential to spit up Manipulated: - Double pair of ASTM standard [id number] certified gloves - Eye/face protection if vomit or potential to spit up - Staff at reproductive risk must also wear a hazardous gown - Crushing must be performed in sealed closed pouch - Splitting/cutting should be performed by pharmacy, if possible 1439 (Given - Provider: Tammy Hanson RN) 0823 (Given - Provider: Penelope Ortiz RN) tamoxifen (NOLVADEX) tablet 20 mg 20 mg, oral, Daily, First dose on Tue05/24/25 at 1300, Antineoplastic Hazardous Medication Intact: - Single pair of ASTM standard [id number] certified gloves - Eye/face protection if vomit or potential to spit up Manipulated: - Manipulation strongly discouraged and should be performed by pharmacy, if possible - Double pair of ASTM standard [id number] certified gloves - Hazardous gown - Eye/face protection if vomit or potential to spit up - Crushing must be performed in sealed closed pouch with respiratory protection in addition to PPE noted above 0920 (Given - Provider: Tammy Hanson RN) 0815 (Given - Provider: Tammy Hanson RN) 0823 (Given - Provider: Penelope Ortiz RN) thiamine (VITAMIN B-1) tablet 100 mg 100 mg, oral, Daily, First dose on Tue05/18/25 at 1300 0919 (Given - Provider: Tammy Hanson RN) 0815 (Given - Provider: Tammy Hanson RN) 0823 (Given - Provider: Penelope Ortiz RN) PRN Medication Order 06/03/2025 06/04/2025 06/05/2025 dextrose (D50W) 50% injection 12.5 g 12.5 g, intravenous, Every 15 min PRN, low blood sugar, moderate hypoglycemia *Patient is Unconscious, NPO, unable to swallow: BG 54 - 69 mg/dl*, Starting on Tue05/29/25 at 1930 0820 (Given - Provid er: Penelope Ortiz RN) dextrose (D50W) 50% injection 25 g 25 g, intravenous, Every 15 min PRN, low blood sugar, severe hypoglycemia *Patient is Unconscious, NPO, unable to swallow: BG LESS than 54 mg/dL*, Starting on Tue05/29/25 at 1930 dextrose 15 gram/60 mL oral solution 15 g 15 g, oral, Every 15 min PRN, low blood sugar, hypoglycemia *Patient conscious AND able to drink and swallow safely*, Starting on Tue05/29/25 at 1930 dextrose 15 gram/60 mL oral solution 30 g 30 g, oral, Every 15 min PRN, low blood sugar, hypoglycemia *Patient conscious AND able to drink and swallow safely*, Starting on 05/29/25 at 1930 glucagon HCL injection 1 mg 1 mg, intramuscular, Once as needed, low blood sugar, severe hypoglycemia, Starting on Tue05/29/25 at 1930, For 1 dose LORazepam (ATIVAN) injection 1 mg 1 mg, intravenous, Every 6 hours PRN, anxiety, restless/agitation, Starting on Jillian 05/30/25 at 1557, Prior to IV use, lorazepam injection should be DILUTED with an equal volume of compatible solution; Rate of administration should NOT exceed 2 mg/min. LORazepam (ATIVAN) tablet 0.5 mg 0.5 mg, oral, Once as needed, anxiety, Starting on Jillian 05/30/25 at 0000, For 1 dose metoprolol tartrate (LOPRESSOR) injection 2.5 mg 2.5 mg, intravenous, Every 4 hours PRN, sustained HR >130, Starting on 05/25/25 at 1442, For IV Push - Administer undiluted over 2 minutes naloxone (NARCAN) injection 0.04 mg 0.04 mg, intravenous, As needed, opioid reversal, Starting on Tue05/15/25 at 2321, For 10 doses, Give IVP every 2 minutes up to 10 doses total as needed for opioid reversal OLANZapine (ZyPREXA ZYDIS) disintegrating tablet 5 mg 5 mg, oral, 2 times daily PRN, delirium, Starting on Tue05/29/25 at 0631, Tablets should NOT be swallowed whole, chewed, broken, or crushed. Place tablet in mouth, allow to dissolve, and then swallow saliva with or without water. oxyCODONE (ROXICODONE) immediate release tablet 5 mg 5 mg, oral, Every 4 hours PRN, severe pain, Starting on Tue05/19/25 at 0956 2316 (Given - Provider: Guerrero Du RN) polyethylene glycol (MIRALAX) packet 17 g 17 g, oral, Daily PRN, constipation, Starting on Tue05/15/25 at 2112, Bowel Regimen - for prevention of constipation sodium chloride 0.9 % bolus 100 mL 100 mL, intravenous, at 100 mL/hr, Administer over 1 Hours, Every 5 min PRN, For SBP LESS than 90 mmHg during hemodialysis/hemofiltration, Starting on Tue05/24/25 at 1207, For 5 doses, -For SBP LESS than 90 mmHg during hemodialysis -May repeat to a maximum of 500 mL -Nursing to try to calculate fluid bolus into removal if possible -Contact physician for further orders if needed sodium chloride 0.9 % flush 10 mL(Linked Group 1) 10 mL, intravenous, As needed, line care, Starting on Tue05/15/25 at 2111 2103 (Given - Provider: Guerrero Du RN) sodium chloride 0.9 % infusion 42 mL/hr, intravenous, As needed, pre-, and post- transfusion as needed for line flush purposes, in conjunction with blood product transfusion only, Starting on Tue05/31/25 at 0340, -Use only the amount required from a 250 mL bag of NS to adequately flush -A new NS bag is required with each new unit of blood administered sodium chloride 0.9 % infusion 42 mL/hr, intravenous, As needed, pre-, and post- transfusion as needed for line flush purposes, in conjunction with blood product transfusion only, Starting on Tue05/31/25 at 1439, -Use only the amount required from a 250 mL bag of NS to adequately flush -A new NS bag is required with each new unit of blood administered Linked Groups Order Group 1: Insert peripheral IV (CANCELED) STAT, Once, On Tue05/15/25 at 2112, For 1 occurrence And Maintain IV access (CANCELED) Until discontinued, Starting on Tue05/15/25 at 2112, Until Specified And Saline lock IV (CANCELED) Routine, Once, On Tue05/15/25 at 2112, For 1 occurrence And sodium chloride 0.9 % flush 10 mLJump to med 10 mL, intravenous, 2 times daily, First dose on Tue05/15/25 at 2112 And sodium chloride 0.9 % flush 10 mLJump to med 10 mL, intravenous, As needed, line care, Starting on Tue05/15/25 at 2111 documented in this encounter Orders Medications Ordered That Balta ht Not Have Been Administered Count Last Ordered Date First Ordered Date LORazepam (ATIVAN) 2 mg/mL i njection - ADS Override Pull 2 06/02/2025 05/30/2025 sodium chloride 0.9 % infusion 2 05/31/2025 LORazepam (ATIVAN) injection 1 mg 1 025 dextrose (D50W) 50% injection 25 g 1 2024 dextrose 15 gram/60 mL oral solution 15 g 2 05/29/2025 05/23/2025 dextrose 15 gram/60 mL oral solution 30 g 2 05/29/2025 05/23/2025 glucagon HCL injection 1 mg 1 05/29/2025 LORazepam (ATIVAN) tablet 0.5 mg 2 05/29/20 amiodarone (PACERONE) tablet 200 mg 1 05/28 amiodarone (NEXTERONE) 360 m g in dextrose iso-osmotic 200 mL (1.8 mg/mL) infusion 2 05/27/2025 heparin (UFH) bolus from inf usion 2,700 Units 1 05/25/2025 heparin (UFH) bolus from inf usion 5,400 Units 1 05/25/2025 perflutren lipid microsphere (DEFINITY) 1.3 mL in sodium chloride 0.9% 8.7 mL injection 1 05/25/2025 sodium chloride 0.9 % bolus 100 mL 1 2024 dextrose (D25W) 25 % injection 2.5 g 1 09/2024 heparin (UFH) bolus from inf usion 3,888 Units 4 05/23/2025 05/16/2025 dextrose 5 % and sodium chlo ride 0.9 % infusion 1 05/21/2025 lactated Ringer's infusion 1 05/21/2025 acetaminophen (TYLENOL) tablet 650 mg 2 05/15/2025 apixaban (ELIQUIS) tablet 2.5 mg 1 05/16/20 heparin (UFH) bolus from inf usion 1,944 Units 1 05/16/2025 heparin (UFH) in 5% dextrose 25,000 Units/250 mL (100 Units/mL) infusion 1 05/16/2025 metoprolol succinate (TOPROL -XL) 24 Hour tablet 200 mg 1 05/15/2025 naloxone (NARCAN) injection 0.04 mg 1 05/15 ondansetron (PF) (ZOFRAN) injection 4 mg 1 05/15/2025 ondansetron ODT (ZOFRAN-ODT) disintegrating tablet 4 mg 1 05/15/2025 polyethylene glycol (MIRALAX) packet 17 g 1 05/15/2025 prochlorperazine (COMPAZINE) injection 10 mg 1 05/15/2025 prochlorperazine (COMPAZINE) suppository 25 mg 1 05/15/2025 prochlorperazine (COMPAZINE) tablet 10 mg 1 05/15/2025 Lab Orders Without Results Count Last Ordered D ate First Ordered Date POCT GLUCOSE, BLOOD 92 06/05/2025 05/23/20 Nursing Count Last Ordered Date First Orde red Date BLADDER SCAN 1 05/23/2025 Consult Count Last Ordered Date First Orde red Date IP CONSULT TO GASTROENTEROLOGY 1 05/31/2025 IP CONSULT TO IV TEAM 2 05/27/20252024 IP CONSULT TO CARDIOLOGY 1 05/26/2025 WOUND CARE INPATIENT FOLLOW-UP 1 05/24/2025 IP CONSULT TO INTERVENTIONAL RADIOLOGY 1 IP CONSULT TO NUTRITION SERVICES 1 05/16/20 IP CONSULT TO ONCOLOGY 1 05/15/2025 PT Count Last Ordered Date First Orde red Date PT EVAL AND TREAT 2 05/21/2025 05/20/2025 Respiratory Care Count Last Ordered Date First Ordered Date OXYGEN THERAPY, ADULT 36 06/04/20252024 Dialysis Count Last Ordered Date First Orde red Date HEMODIALYSIS INPATIENT 4 05/31/202505/23 Admission Count Last Ordered Date First Orde red Date ADMIT TO INPATIENT 1 05/15/2025 Transfer Count Last Ordered Date First Orde red Date TRANSFER PATIENT TO NEW UNIT 3 06/05/2025 05/24/2025 ED TO FLOOR BED REQUEST 1 05/15/2025 Discharge Count Last Ordered Date First Orde red Date DISCHARGE PATIENT 1 06/05/2025 documented in this encounter Care Teams Nitric Acid Concentrator Operator Relationship Specialty Start Date End Date Peyman Boss MD [address] [place], [place] [id number] PCP - General 12/26/08 documented as of this encounter
[2025-06-06 05:35] LABS: MANUAL DIFF FLAG NO
--- OUTSIDE RECORDS SUMMARY | 2025-06-06 05:38 | XMS_ITS | Clinical Summary ---
Author Organization [facility] Address [address] [place] [address] Care Team Providers Care Social Work Specialist Name Role Phone Peyman Boss MD Primary [...] age to complete this topic Care Teams Social Work Specialist Relationship Specialty Start Date End Date Peyman Boss MD PCP - General Internal Medicine 04/16/21
--- OUTSIDE RECORDS SUMMARY | 2025-06-06 05:39 | XMS_ITS ---
Author Organization [facility] Address [address] [place] [address] Phone Care Team Providers Care Latrine Cleaner Name Role Phone Peyman Boss MD Primary Care Provider [phone] Active Problems Problem Noted Date Diagnosed Date Hypotension 05/17/2025 Hypercalcemia 05/16/2025 Malignancy ([facility] V24, [facility] V28) 05/16/2025 Severe protein-calorie malnutrition ([facility] V24 ) 05/16/2025 Acute metabolic encephalopathy 05/15/2025 Malignant neoplasm of overla pping sites of right breast in female, estrogen receptor positive ([facility] V24, [facility] V28) 07/24/2024 Cardiomyopathy ([facility] V24, [facility] V28) 2011 Overview (06/20/2024): LVEF 2008 25-30% Echo 03/2011 LVEF 50-55%, mild LVH, diastolic dysfunction, TRELL mildly dilated mild MR Thought to be afib/tachy mediated COPD (chronic obstructive pu lmonary disease) ([facility] V24, [facility] V28) 06/14/2012 DM2 (diabetes mellitus, type 2) ([facility] V24, [facility] V28) 06/14/2012 HTN (hypertension) 06/14/2012 Hyperlipidemia with target LDL less than 70 05/23 Overview (06/20/2024): IMO update Observed sleep apnea 06/14/2012 Paroxysmal A-fib ([facility] V24, [facility] V28) 05/23 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 Past Treatment and Therapy Plans No past plan information found. Lifetime Dose Tracking * Chemical Lifetime Dose Automatic Entry Manual Entr y Fluoro Time 0.5 minutes 0 minutes 0.5 minutes Air Kerma 2 mGy 0 mGy 2 mGy
--- OUTSIDE RECORDS SUMMARY | 2025-06-06 05:39 | XMS_ITS | Clinical Summary ---
Author Organization [facility] Address [address] [place] [address] Phone Care Team Providers Care Customer Experience Professional Name Role Phone Peyman Boss MD Primary Care Provider [phone] Allergies No known active allergies Medications tamsulosin (FLOMAX) 0.4 mg 24 hr capsule Take 1 capsule (0.4 mg total) by mouth. Active gabapentin (NEURONTIN) 100 mg capsule Take 1 capsule (100 mg total) by mouth. Active rosuvastatin (CRESTOR) 40 mg tablet Take 40 mg by mouth daily. Active fluticasone propionate (FLONASE) 50 mcg/actuation nasal spray 2 Sprays by Each Nare route daily. Active cholecalciferol (VITAMIN D-3) 50 mcg (2,000 unit) capsule Take by mouth. Activ e acetaminophen (TYLENOL) 325 mg tablet Take 2 tablets (650 mg total) by mouth every 6 (six) hours if needed. Active Rocklatan 0.02-0.005 % drops Administer 1 drop into both eyes 1 (one) time each day in the evening. 03/15/20 25 Active potassium chloride (KLOR-CON M10) 10 mEq CR tablet Take 2 tablets (20 mEq total) by mouth 1 (one) time each day. Active metoprolol tartrate (LOPRESSOR) 50 mg tablet Take 1 tablet (50 mg total) by mouth 2 (two) times a day. 06/05/20 25 026 Active midodrine (PROAMATINE) 10 mg tablet Take 1 tablet (10 mg total) by mouth 3 (three) times a day before meals. To hold if SBP>120 06/05/20 Active multivitamin tablet Take 1 tablet by mouth 1 (one) time each day. 06/06/20 Active OLANZapine (ZyPREXA ZYDIS) 5 mg disintegrating tabletIndications :Ischemic cardiomyopathy Take 1 tablet (5 mg total) by mouth 2 (two) times a day if needed (delirium). 06/05/20 Active polyethylene glycol (MIRALAX) 17 gram packet Take 17 g by mouth 1 (one) time each day if needed for constipation for up to 3 days. 06/05/20 Active tamoxifen (NOLVADEX) 20 mg chemo tablet Take 1 tablet (20 mg total) by mouth 1 (one) time each day Take with water or any other nonalcoholic drink with or without food at around the same time(s) every day. 06/06/20 Active thiamine (VITAMIN B-1) 100 mg tablet Take 1 tablet (100 mg total) by mouth 1 (one) time each day. 06/06/20 Active pantoprazole (PROTONIX) 40 mg EC tablet Take 1 tablet (40 mg total) by mouth 2 (two) times a day. Do not crush, chew, or split. 06/05/20 Active apixaban (ELIQUIS) 5 mg tablet Take 0.5 tablets (2.5 mg total) by mouth 2 (two) times a day. Discontinu ed(Stop Taking at Discharge) digoxin (LANOXIN) 125 mcg (0.125 mg) tablet Take by mouth. Discontinu ed(Stop Taking at Discharge) METOPROLOL SUCCINATE ORAL Take by mouth. Discontinu ed(Discont inued by another clinician) spironolactone (ALDACTONE) 25 mg tablet Take 0.5 tablets (12.5 mg total) by mouth. Discontinu ed(Stop Taking at Discharge) sotaloL (BETAPACE) 80 mg tablet Take 80 mg by mouth 2 times daily. Discontinu ed(Discont inued by another clinician) lisinopriL (PRINIVIL,ZESTRIL ) 5 mg tablet Take 5 mg by mouth daily. Discontinu ed(Discont inued by another clinician) gabapentin (NEURONTIN) 300 mg capsule Take 300 mg by mouth 3 times daily. Discontinu ed(Discont inued by another clinician) docusate sodium (COLACE) 100 mg capsule Take 100 mg by mouth 2 times daily. Discontinu ed(Stop Taking at Discharge) ipratropium/albut rupinder sulfate (COMBIVENT INHL) Inhale into the lungs. Discontinu ed(Stop Taking at Discharge) furosemide (LASIX) 40 mg tablet Take 0.5 tablets (20 mg total) by mouth 1 (one) time each day. Discontinu ed(Stop Taking at Discharge) warfarin sodium (COUMADIN ORAL) Take by mouth. 05/15 Discontinu ed(Discont inued by another clinician) letrozole (FEMARA) 2.5 mg tablet TAKE ONE TABLET BY MOUTH EVERY DAY 90 tablet 3 08/27/19 Discontinu ed(Stop Taking at Discharge) metoprolol succinate (TOPROL-XL) 200 mg 24 hr tablet Take 1 tablet (200 mg total) by mouth 1 (one) time each day. Discontinu ed(Stop Taking at Discharge) sacubitriL-valsar porter (ENTRESTO) 24-26 mg per tablet Take 1 tablet by mouth 2 (two) times a day. 05/13/20 Discontinu ed(Stop Taking at Discharge) traMADoL (ULTRAM) 50 mg tablet Take 1 tablet (50 mg total) by mouth every 8 (eight) hours if needed for moderate pain. Max Daily Amount: 150 mg 05/10/20 Discontinu ed(Stop Taking at Discharge) Active Problems Problem Noted Date Diagnosed Date Hypotension 05/17/2025 Hypercalcemia 05/16/2025 Malignancy (CMS/HCC V24, CMS/HCC V28) 05/16/2025 Severe protein-calorie malnutrition (CMS/HCC V24 ) 05/16/2025 Acute metabolic encephalopathy 05/15/2025 Malignant neoplasm of overla pping sites of right breast in female, estrogen receptor positive ([facility] V24, [facility] V28) 07/24/2024 Cardiomyopathy ([facility] V24, [facility] V28) 2011 Overview (06/20/2024): LVEF 2008 25-30% Echo 03/2011 LVEF 50-55%, mild LVH, diastolic dysfunction, TRELL mildly dilated mild MR Thought to be afib/tachy mediated COPD (chronic obstructive pu lmonary disease) ([facility] V24, [facility] V28) 06/14/2012 DM2 (diabetes mellitus, type 2) ([facility] V24, [facility] V28) 06/14/2012 HTN (hypertension) 06/14/2012 Hyperlipidemia with target LDL less than 70 05/23 Overview (06/20/2024): IMO update Observed sleep apnea 06/14/2012 Paroxysmal A-fib ([facility] V24, [facility] V28) 05/23 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 Encounters Date Type Department Care Team Description 05/31/2025 12:57 PM EDT Anesthesia Event [facility] Endoscopy [address] [place] [address] Bryan Rothman MD 05/15/2025 4:32 PM EDT - 06/05/2025 6:03 PM EDT Hospital Encounter [facility] [address] [place] [address] Ivania Vidal MD Zaidi, MD Yvon Oleary Christopher, MD Bell, Alistair A, MD Kokosadze, Estate, MD Levrault, Richard, DO Loiacono, Laurie, MD Mohani, Priya, MD Acute metabolic encephalopathy (Primary Dx); Hypercalcemia; Cardiomyopathy, unspecified type ([facility] V24, [facility] V28); Edema of right upper arm; Malignancy ([facility] V24, [facility] V28); 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, left ([facility] V24, [facility]/HCC V28); Ischemic cardiomyopathy Discharge Disposition: [facility] Facility 05/08/2025 Telephone [facility] Hematology Oncology [address] [place] [address] Dhaval Joseph MD from Last 3 Months Surgical History Surgery [...] Mass Index 23.67 05/26/2025 1:10 PM EDT Plan of Treatment Upcoming Encounters Date Type Department Care Team (Late st Contact Info) Description 08/07/2025 11:15 AM EST Office Visit [facility] Hematology Oncology [address] [place] [address] Dhaval Joseph MD [address] [place] [address] Health Maintenance Due Date Last Done Comments Diabetes: Annual Foot Exam 1955 Diabetes: Annual Retina Eye Exam 1955 DTaP,Tdap,and Td Vaccines (1 - Tdap) 1963 Zoster Vaccines (1 of 2) 1963 RSV Immunization Adult Patients (1 - 1-dose 75+ series) 2019 Pneumococcal Vaccine: 50+ Years (2 of 2 - PCV) 06/21/2020 06/21/2019 Cholesterol Screening (Lipid Panel) 07/31/2022 Medicare Annual Wellness Visit 07/31/2022 Diabetes: Annual Urine Albumin-Creatinine Ratio (uACR) 08/07/2022 Depression Screening 08/22/2024 COVID-19 Vaccine ( season) 2025 06/26/2021, 11/18/2020, 10/21/2020 Influenza Vaccine (#1) 2025 , 08/25/2023, 07/29/2021, Additional history exists Diabetes: Blood Sugar Control Test (HGBA1C) 11/23/2025 05/25/2025 Social Influencers of Health Screening 05/18/2026 05/18/2025 Diabetes: Annual GFR (Glomerular Filtration Rate) 06/05/2026 06/05/2025, 06/04/2025, 06/03/2025, Additional history exists Falls Risk Assessment 06/05/2026 06/05/2025 Hypertension/CHF/CAD Annual BMP Blood Test 06/05/2026 06/05/2025, 06/04/2025, 06/03/2025, Additional history exists Osteoporosis Screening (Bone Density [...] on patient's age to complete this topic Goals Goal Patient Goal Type Associated Problems Recent Progress Patient-Stated? Author Autogenerat ed Goal Care Plan Autogenerated Problem No Emily Call RN Medical Devices Implanted Type Area Appeals Board Referee Device Identifier Shelf Expiration Date Model / Serial / Lot Cath Glidepath [id number] m Order In Mult Of 5ea - [id number] - [id number] Implanted:Qty : 1 on 05/27/2025 by Sharon Hassan PA at [facility] Dialysis Catheters Right: Internal Jugular CR BARD PERIPHERAL VASCULAR [id number] 07/21/2026 [id number] / [id number] Procedures Procedure Name Priority Date/Time Associated Diagnosis Comments POCT GLUCOSE BLOOD Routine 06/05/2025 4: 03 PM EDT IR REMOVE TUNNELED CVC WO SUBQ PORT OR PUMP Routine 06/05/2025 3:48 PM EDT POCT GLUCOSE BLOOD Routine 06/05/2025 11 :29 AM EDT POCT GLUCOSE BLOOD Routine 06/05/2025 7: 50 AM EDT HEMOGLOBIN AND HEMATOCRIT Timed 06/05/2025 5:29 AM EDT CBC WITH AUTO DIFFERENTIAL Routine 06/05/2025 5:29 AM EDT CBC AND DIFFERENTIAL [...] BLOOD Routine 06/04/2025 7: 57 AM EDT ALBUMIN Add-On 06/04/2025 5:55 AM EDT HEMOGLOBIN AND HEMATOCRIT Timed 06/04/2025 5:55 AM EDT CBC WITH AUTO DIFFERENTIAL Routine 06/04/2025 5:55 AM EDT MAGNESIUM Routine 06/04/2025 5:55 AM EDT CBC AND DIFFERENTIAL Routine 06/04/2025 5:55 AM EDT BASIC METABOLIC PANEL [...] BLOOD Routine 06/03/2025 7: 32 AM EDT HEMOGLOBIN AND HEMATOCRIT Timed 06/03/2025 5:13 AM EDT CBC WITH AUTO DIFFERENTIAL Routine 06/03/2025 5:13 AM EDT MAGNESIUM Routine 06/03/2025 5:13 AM EDT CBC AND DIFFERENTIAL Routine 06/03/2025 5:13 AM EDT BASIC METABOLIC [...] THERAPY, ADULT Routine 06/02/2025 8:00 AM EDT HEMOGLOBIN AND HEMATOCRIT Timed 06/02/2025 5:53 AM EDT CBC WITH AUTO DIFFERENTIAL Routine 06/02/2025 5:53 AM EDT PHOSPHORUS Routine 06/02/2025 5:53 AM EDT MAGNESIUM Routine 06/02/2025 5:53 AM EDT BASIC METABOLIC PANEL Routine 06/02/2025 5:53 AM EDT CBC AND DIFFERENTIAL Routine 06/02/2025 5:53 AM EDT POCT GLUCOSE [...] EDT POCT GLUCOSE BLOOD Routine 06/01/2025 6: 23 AM EDT HEMOGLOBIN AND HEMATOCRIT Timed 06/01/2025 5:08 AM EDT CBC WITH AUTO DIFFERENTIAL Routine 06/01/2025 5:08 AM EDT MAGNESIUM Routine 06/01/2025 5:08 AM EDT CBC AND DIFFERENTIAL Routine 06/01/2025 5:08 AM EDT BASIC METABOLIC [...] PREPARE RBC Routine 05/31/2025 3:41 AM EDT CBC WITH AUTO DIFFERENTIAL STAT 05/31/2025 3:07 AM EDT PHOSPHORUS STAT 05/31/2025 3:07 AM EDT MAGNESIUM STAT 05/31/2025 3:07 AM EDT CBC AND DIFFERENTIAL STAT 05/31/2025 3:07 AM EDT BASIC METABOLIC PANEL STAT 05/31/2025 3:07 AM EDT OCCULT BLOOD STOOL, GUAIAC Routine 05/31/2025 3:07 AM EDT POCT GLUCOSE BLOOD [...] THERAPY, ADULT Routine 05/30/2025 8:00 AM EDT CBC WITH AUTO DIFFERENTIAL Routine 05/30/2025 6:12 AM EDT CBC AND DIFFERENTIAL Routine 05/30/2025 6:12 AM EDT PROCALCITONIN Routine 05/30/2025 6:12 AM EDT HEPATIC FUNCTION PANEL Routine 6:12 AM EDT PHOSPHORUS Routine 05/30/2025 6:12 AM EDT MAGNESIUM Routine 05/30/2025 6:12 AM EDT CALCIUM, IONIZED Routine 05/30/2025 6:12 AM EDT BASIC METABOLIC PANEL Routine 05/30/2025 6:12 AM EDT POCT GLUCOSE BLOOD Routine 05/30/2025 12 :31 AM EDT OXYGEN THERAPY, ADULT Routine 05/29/2025 8:00 PM EDT POCT GLUCOSE BLOOD Routine 05/29/2025 5: 07 PM EDT HEMODIALYSIS INPATIENT Routine 10:44 AM EDT POCT GLUCOSE BLOOD Routine 05/29/2025 8: 22 AM EDT OXYGEN THERAPY, ADULT Routine 05/29/2025 8:00 AM EDT COMPLETE BLOOD COUNT Timed 05/29/2025 5:04 AM EDT CBC WITH AUTO DIFFERENTIAL Routine 05/29/2025 5:04 AM EDT BASIC METABOLIC PANEL Routine 05/29/2025 5:04 AM EDT PHOSPHORUS Routine 05/29/2025 5:04 AM EDT MAGNESIUM Routine 05/29/2025 5:04 AM EDT CALCIUM, IONIZED Routine 05/29/2025 5:04 AM EDT CBC AND DIFFERENTIAL Routine 05/29/2025 5:04 AM EDT POCT GLUCOSE [...] AUTO DIFFERENTIAL Routine 05/28/2025 3:57 AM EDT COMPREHENSIVE METABOLIC PANEL Routine 05/28/2025 3:57 AM EDT VENOUS BLOOD GAS Routine 05/28/2025 3:57 AM EDT PHOSPHORUS Routine 05/28/2025 3:57 AM EDT MAGNESIUM Routine 05/28/2025 3:57 AM EDT CALCIUM, IONIZED Routine 05/28/2025 3:57 AM EDT CBC AND DIFFERENTIAL Routine 05/28/2025 3:57 AM EDT LACTATE Routine 05/28/2025 3:57 AM EDT POCT GLUCOSE [...] AUTO DIFFERENTIAL Routine 05/27/2025 4:17 AM EDT COMPREHENSIVE METABOLIC PANEL Routine 05/27/2025 4:17 AM EDT VENOUS BLOOD GAS Routine 05/27/2025 4:17 AM EDT PHOSPHORUS Routine 05/27/2025 4:17 AM EDT MAGNESIUM Routine 05/27/2025 4:17 AM EDT CALCIUM, IONIZED Routine 05/27/2025 4:17 AM EDT CBC AND DIFFERENTIAL Routine 05/27/2025 4:17 AM EDT POCT GLUCOSE BLOOD Routine 05/27/2025 12 :13 AM EDT OXYGEN THERAPY, ADULT Routine 05/26/2025 8:00 PM EDT CALCIUM, IONIZED Routine 05/26/2025 7:30 PM EDT PHOSPHORUS Routine 05/26/2025 7:30 PM EDT MAGNESIUM Routine 05/26/2025 7:30 PM EDT BASIC METABOLIC PANEL Routine 05/26/2025 7:30 PM EDT POCT GLUCOSE BLOOD Routine 05/26/2025 6: 03 PM EDT POCT GLUCOSE BLOOD Routine 05/26/2025 2: 50 PM EDT TRANSTHORACIC ECHOCARDIOGRAM (TTE) COMPLETE Routine 05/26/2025 1:11 PM EDT Cardiomyopathy, unspecified type (CMS/HCC V24, CMS/HCC V28) CALCIUM, IONIZED Routine 05/26/2025 11:4 1 AM EDT PHOSPHORUS Routine 05/26/2025 11:41 AM EDT MAGNESIUM Routine 05/26/2025 11:41 AM EDT BASIC METABOLIC PANEL Routine 05/26/2025 11:41 AM EDT POCT GLUCOSE BLOOD Routine 05/26/2025 9: 54 AM EDT POCT GLUCOSE BLOOD Routine 05/26/2025 8: 22 AM EDT OXYGEN THERAPY, ADULT Routine 05/26/2025 8:00 AM EDT VENOUS BLOOD GAS Routine 05/26/2025 6:14 AM EDT HEPARIN AND LOW MOLECULAR WEIGHT ANTI XA LEVEL Routine 05/26/2025 5:33 AM EDT COMPREHENSIVE METABOLIC PANEL Routine 05/26/2025 5:33 AM EDT PHOSPHORUS Routine 05/26/2025 5:33 AM EDT MAGNESIUM Routine 05/26/2025 5:33 AM EDT CBC WITH AUTO DIFFERENTIAL Routine 05/26/2025 3:59 AM EDT CALCIUM, IONIZED Routine 05/26/2025 3:59 AM EDT CBC AND DIFFERENTIAL Routine 05/26/2025 3:59 AM EDT LACTATE Routine 05/26/2025 3:59 AM EDT POCT GLUCOSE BLOOD Routine 05/26/2025 2: 00 AM EDT CALCIUM, IONIZED Routine 05/25/2025 11:4 7 PM EDT PHOSPHORUS Routine 05/25/2025 11:47 PM EDT MAGNESIUM Routine 05/25/2025 11:47 PM EDT BASIC METABOLIC PANEL Routine 05/25/2025 11:47 PM EDT HEPARIN AND LOW MOLECULAR WEIGHT ANTI XA LEVEL Routine 05/25/2025 10:53 PM EDT OXYGEN THERAPY, ADULT Routine 05/25/2025 8:00 PM EDT POCT GLUCOSE BLOOD Routine 05/25/2025 7: 21 PM EDT COMPREHENSIVE METABOLIC PANEL Routine 05/25/2025 6:23 PM EDT DIGOXIN LEVEL Timed 05/25/2025 6:23 PM EDT MAGNESIUM Routine 05/25/2025 6:23 PM EDT CALCIUM, IONIZED Routine 05/25/2025 6:23 PM EDT POCT GLUCOSE BLOOD Routine 05/25/2025 3: 52 PM EDT HEPARIN AND LOW MOLECULAR WEIGHT ANTI XA LEVEL Routine 05/25/2025 3:47 PM EDT POCT GLUCOSE BLOOD Routine 05/25/2025 1: 59 PM EDT COMPREHENSIVE METABOLIC PANEL Routine 05/25/2025 1:50 PM EDT MAGNESIUM Routine 05/25/2025 1:50 PM EDT POCT GLUCOSE BLOOD Routine 05/25/2025 12 :08 PM EDT POCT GLUCOSE BLOOD Routine 05/25/2025 11 :48 AM EDT POCT GLUCOSE BLOOD Routine 05/25/2025 11 :28 AM EDT POCT GLUCOSE BLOOD Routine 05/25/2025 8: 21 AM EDT OXYGEN THERAPY, ADULT Routine 05/25/2025 8:00 AM EDT HEMOGLOBIN A1C Add-On 05/25/2025 5:59 AM EDT CBC WITH AUTO DIFFERENTIAL Routine 05/25/2025 5:59 AM EDT ACTIVATED PARTIAL THROMBOPLASTIN TIME Routine 05/25/2025 5:59 AM EDT PROTHROMBIN TIME WITH INR Routine 05/25/2025 5:59 AM EDT PHOSPHORUS Routine 05/25/2025 5:59 AM EDT CALCIUM, IONIZED Routine 05/25/2025 5:59 AM EDT HEPATIC FUNCTION PANEL Routine 5:59 AM EDT MAGNESIUM Routine 05/25/2025 5:59 AM EDT CBC AND DIFFERENTIAL Routine 05/25/2025 5:59 AM EDT BASIC METABOLIC PANEL Routine [...] BLOOD Routine 05/24/2025 5: 10 PM EDT PROCALCITONIN Routine 05/24/2025 2:05 PM EDT CORTISOL Routine 05/24/2025 2:05 PM EDT THYROID STIMULATING HORMONE WITH REFLEX TO FREE T4 AND FREE T3 Routine 05/24/2025 2:05 PM EDT TREPONEMA PALLIDUM ANTIBODY WITH REFLEX TO RPR AND PARTICLE AGGLUTINATION Routine 05/24/2025 2:05 PM EDT FOLATE Routine 05/24/2025 2:05 PM EDT VITAMIN B12 Routine 05/24/2025 2:05 PM EDT HEPATITIS B SURFACE ANTIGEN WITH CONFIRMATION Routine 05/24/2025 2:05 PM EDT HEPATITIS B SURFACE ANTIBODY QUANTITATIVE Routine 05/24/2025 2:05 PM EDT POCT GLUCOSE BLOOD Routine 05/24/2025 11 :43 AM EDT POCT GLUCOSE BLOOD Routine 05/24/2025 10 :37 AM EDT POCT GLUCOSE BLOOD Routine 05/24/2025 9: 42 AM EDT ANGIOTENSIN CONVERTING ENZYME Routine 05/24/2025 9:11 AM EDT VITAMIN D 1,25 DIHYDROXY Routine 05/24/2025 9:11 AM EDT POCT GLUCOSE [...] AUTO DIFFERENTIAL Routine 05/24/2025 2:37 AM EDT COMPLETE BLOOD COUNT Timed 05/24/2025 2:37 AM EDT PHOSPHORUS Routine 05/24/2025 2:37 AM EDT MAGNESIUM Routine 05/24/2025 2:37 AM EDT CBC AND DIFFERENTIAL Routine 05/24/2025 2:37 AM EDT BASIC METABOLIC PANEL Routine 05/24/2025 2:37 AM EDT HEPARIN AND LOW MOLECULAR WEIGHT ANTI XA LEVEL Timed 05/24/2025 2:37 AM EDT POCT GLUCOSE BLOOD Routine 05/24/2025 2: 36 AM EDT POCT GLUCOSE BLOOD Routine 05/24/2025 12 :49 AM EDT POCT GLUCOSE BLOOD Routine 05/24/2025 12 :39 AM EDT BASIC METABOLIC PANEL Routine 05/24/2025 12:25 AM EDT HEPARIN AND LOW MOLECULAR WEIGHT ANTI XA LEVEL Timed 05/24/2025 12:18 AM EDT LAVENDER - EDTA Routine 05/24/2025 12:17 AM EDT EXTRA TUBES Routine 05/24/2025 12:17 AM EDT POCT GLUCOSE BLOOD Routine 05/23/2025 11 :55 PM EDT POCT GLUCOSE BLOOD Routine 05/23/2025 11 :46 PM EDT POCT GLUCOSE BLOOD Routine 05/23/2025 11 :21 PM EDT OXYGEN THERAPY, ADULT Routine 05/23/2025 8:00 PM EDT HEPARIN AND LOW MOLECULAR WEIGHT ANTI XA LEVEL Timed 05/23/2025 5:48 PM EDT POTASSIUM STAT 05/23/2025 3:54 PM EDT HEPARIN AND LOW MOLECULAR WEIGHT ANTI XA LEVEL STAT 05/23/2025 12:05 PM EDT ACTIVATED PARTIAL THROMBOPLASTIN TIME STAT 05/23/2025 12:05 PM EDT PROTHROMBIN TIME WITH INR STAT 05/23/2025 12:05 PM EDT HEMODIALYSIS INPATIENT Routine 11:35 AM EDT XR CHEST 1 VIEW STAT 05/23/2025 10:22 AM EDT POCT GLUCOSE BLOOD Routine 05/23/2025 9: 16 AM EDT POCT GLUCOSE BLOOD Routine 05/23/2025 8: 54 AM EDT OXYGEN THERAPY, ADULT Routine 05/23/2025 8:00 AM EDT CBC WITH AUTO DIFFERENTIAL Routine 05/23/2025 5:49 AM EDT BASIC METABOLIC PANEL Routine 05/23/2025 5:49 AM EDT CBC AND DIFFERENTIAL Routine 05/23/2025 5:49 AM EDT OXYGEN THERAPY, ADULT Routine 05/22/2025 8:00 PM EDT OXYGEN THERAPY, ADULT Routine 05/22/2025 8:00 AM EDT LT BLUE - NA CITRATE Routine 05/22/2025 5:52 AM EDT EXTRA TUBES Routine 05/22/2025 5:52 AM EDT CBC WITH AUTO DIFFERENTIAL Routine 05/22/2025 5:52 AM EDT CBC AND [...] METABOLIC PANEL Routine 05/21/2025 6:13 AM EDT CREATININE, URINE, RANDOM STAT 05/21/2025 5:09 AM EDT OSMOLALITY, URINE Routine 05/21/2025 5:0 9 AM EDT SODIUM, URINE, RANDOM STAT 05/21/2025 5:09 AM EDT PONCE URINE CULTURE TUBE STAT 05/21/2025 5:09 AM EDT URINALYSIS WITH REFLEX MICROSCOPIC AND CULTURE STAT 05/21/2025 5:09 AM EDT URINALYSIS WITH [...] METABOLIC PANEL Routine 05/20/2025 7:46 AM EDT LT BLUE - NA CITRATE Routine 05/20/2025 7:45 AM EDT EXTRA TUBES Routine 05/20/2025 7:45 AM EDT CBC WITH AUTO DIFFERENTIAL Routine 05/20/2025 5:36 AM EDT CBC AND DIFFERENTIAL Routine 05/20/2025 5:36 AM EDT COMPLETE BLOOD COUNT Timed 05/20/2025 5:36 AM EDT OXYGEN THERAPY, ADULT Routine 05/19/2025 8:00 PM EDT BASIC METABOLIC PANEL STAT 05/19/2025 3:54 PM EDT OXYGEN THERAPY, ADULT Routine 05/19/2025 8:00 AM EDT LAVENDER - EDTA Routine 05/19/2025 5:37 AM EDT EXTRA TUBES Routine 05/19/2025 5:37 AM EDT ACTIVATED PARTIAL THROMBOPLASTIN TIME Routine 05/19/2025 5:37 AM EDT MAGNESIUM Routine 05/19/2025 5:37 AM EDT BASIC METABOLIC PANEL Routine 05/19/2025 5:37 AM EDT OXYGEN THERAPY, ADULT Routine 05/18/2025 8:00 PM EDT XR ABDOMEN 1 VIEW Routine 05/18/2025 3:3 3 PM EDT MR BRAIN WO AND W CONTRAST Routine 05/18/2025 2:01 PM EDT LAVENDER - EDTA Routine 05/18/2025 10:11 AM EDT EXTRA TUBES Routine 05/18/2025 10:11 AM EDT DIGOXIN LEVEL Timed 05/18/2025 10:11 AM EDT ACTIVATED PARTIAL THROMBOPLASTIN TIME Timed 05/18/2025 10:11 AM EDT OXYGEN THERAPY, ADULT Routine 05/18/2025 10:03 AM EDT OXYGEN THERAPY, ADULT Routine 05/18/2025 10:03 AM EDT OXYGEN THERAPY, ADULT Routine 05/18/2025 10:03 AM EDT LAVENDER - EDTA Routine 05/18/2025 4:24 AM EDT EXTRA TUBES Routine 05/18/2025 4:24 AM EDT MAGNESIUM Routine 05/18/2025 4:24 AM EDT BASIC METABOLIC PANEL Routine 05/18/2025 4:24 AM EDT ACTIVATED PARTIAL THROMBOPLASTIN TIME Timed 05/18/2025 4:24 AM EDT DIGOXIN LEVEL Timed 05/17/2025 9:11 PM EDT ACTIVATED PARTIAL THROMBOPLASTIN TIME Timed 05/17/2025 9:11 PM EDT ACTIVATED PARTIAL THROMBOPLASTIN TIME Timed 05/17/2025 7:14 PM EDT NM BONE/JOINT SCAN WHOLE BODY Routine 05/17/2025 3:09 PM EDT ACTIVATED PARTIAL THROMBOPLASTIN TIME Timed 05/17/2025 12:42 PM EDT ACTIVATED PARTIAL THROMBOPLASTIN TIME Timed 05/17/2025 6:17 AM EDT COMPLETE BLOOD COUNT Timed 05/17/2025 6:17 AM EDT BASIC METABOLIC PANEL Routine 05/17/2025 6:11 AM EDT CALCIUM, IONIZED Routine 05/17/2025 6:11 AM EDT ACTIVATED PARTIAL THROMBOPLASTIN TIME Timed 05/17/2025 12:54 AM EDT ACTIVATED PARTIAL THROMBOPLASTIN TIME Timed 05/16/2025 6:[address] CHEST/ABDOMEN/PELVIS W CONTRAST STAT 05/16/2025 1:55 PM EDT PARATHYROID HORMONE RELATED PROTEIN Routine 05/16/2025 12:42 PM EDT HEPARIN AND LOW MOLECULAR WEIGHT ANTI XA LEVEL STAT 05/16/2025 12:41 PM EDT ACTIVATED PARTIAL THROMBOPLASTIN TIME STAT 05/16/2025 12:41 PM EDT PARATHYROID HORMONE INTACT Add-On 05/16/2025 12:41 PM EDT CALCIUM, IONIZED Routine 05/16/2025 5:52 AM EDT CBC WITH AUTO DIFFERENTIAL Routine 05/16/2025 5:52 AM EDT [facility] QUANTITATIVE FREE LIGHT CHAINS Routine 05/16/2025 5:52 AM EDT HEPATIC FUNCTION PANEL Routine 5:52 AM EDT CBC AND DIFFERENTIAL Routine 05/16/2025 5:52 AM EDT BASIC METABOLIC PANEL Routine 05/16/2025 5:52 AM EDT ECG ANNOTATED 05/16/2025 ND PROTEIN ELECTROPHORETIC FRACTIONATION & QUANTITATION SERUM Routine 05/15/2025 11:14 PM EDT BASIC METABOLIC PANEL Add-On 05/15/2025 11:14 PM EDT ALBUMIN Add-On 05/15/2025 11:14 PM EDT PROTEIN, TOTAL Routine 05/15/2025 11:14 PM EDT HEPATITIS PANEL, ACUTE WITH REFLEX TO CONFIRMATION Routine 05/15/2025 11:14 PM EDT PROTEIN ELECTROPHORESIS, SERUM Routine 05/15/2025 11:14 PM EDT XR HUMERUS 2+ VIEWS RIGHT STAT 05/15/2025 10:[address] HEAD WO CONTRAST STAT 05/15/2025 7 :18 PM EDT PROTHROMBIN TIME WITH INR STAT 05/15/2025 6:17 PM EDT XR CHEST 1 VIEW STAT 05/15/2025 6:15 PM EDT IMMUNOGLOBULINS IGG, IGA, IGM, IGE Add-On 05/15/2025 5:36 PM EDT LACTATE DEHYDROGENASE Add-On 05/15/2025 5:36 PM EDT URIC ACID Add-On 05/15/2025 5:36 PM EDT BETA 2 MICROGLOBULIN, SERUM Add-On 05/15/2025 5:36 PM EDT THYROID STIMULATING HORMONE STAT Add-on 05/15/2025 5:36 PM EDT C REACTIVE PROTEIN, HIGH SENSITIVITY STAT Add-on 05/15/2025 5:36 PM EDT COMPREHENSIVE METABOLIC PANEL STAT Add-on 05/15/2025 5:36 PM EDT DIGOXIN LEVEL Timed 05/15/2025 5:36 PM EDT CBC WITH AUTO DIFFERENTIAL STAT 05/15/2025 5:36 PM EDT B-TYPE NATRIURETIC PEPTIDE STAT 05/15/2025 5:36 PM EDT CBC AND DIFFERENTIAL STAT 05/15/2025 5:36 PM EDT ECG 12-LEAD STAT 05/15/2025 5:24 PM EDT [facility] DEXA AXIAL SKELETON Routine 07/01/2023 8:13 AM EST Other specified disorders of bone density and structure, left thigh from Last 3 Months or Most Recently Relevant to Health Maintenance Results * (ABNORMAL) POCT Glucose, blood (06/05/2025 4:03 PM EDT) Only the most recent of94 resultswithin the time period is included. [facility] Signature Glucose POCT 118(H) 70 - 100 mg/dL 06/05/2025 4:04 PM EDT [facility] Blood Capillary blood specimen / Unknown 06/05/2025 4:03 PM EDT 06/05/2025 4:05 PM EDT us Kia Le MD LAB POINT OF CARE TE ST DOCKED DEVICE UNSOLICITED RESULTS Final Result [facility]) [facility] [address] [place], [place] [address], [place] [phone] * IR Remove Tunneled CVC wo Subq [...] Signed Date: 06/05/2025 16:22 ET Workstation ID: [id number] Transcribed By: Self Edit Transcribed Date: 06/05/2025 15:52 ET Resident/PA/BUILDING DRAFTER: Sharon Hassan Narrative 06/05/2025 4:22 PM EDT [...] Signed Date: 06/05/2025 16:22 ET Workstation ID: [id number] Transcribed By: Self Edit Transcribed Date: 06/05/2025 15:52 ET Resident/PA/BUILDING DRAFTER: Sharon Hassan us Carlos Alberto Islas MD IMG IR PROCEDURES Final Result * (ABNORMAL) CBC auto differential (06/05/2025 5:29 AM EDT) Only the most recent of19 resultswithin the time period is included. WBC 10.0 4.8 - 10.8 K/mcL LAB HEMETOLOGY METHOD 06/05/2025 6:[address] [facility] RBC 2.80(L) 3.80 - 4.80 M/mcL LAB HEMETOLOGY METHOD [facility]25 [facility] Hemoglobin 7.7(L) 11.5 - 16.0 g/dL LAB HEMETOLOGY METHOD 06/05/2025 6:[address] [facility] Hematocrit 25.5(L) 35.0 - 47.0 % LAB HEMETOLOGY METHOD 06/05/2025 6:[address] [facility] MCV 92.7 79.0 - 98.0 FL LAB HEMETOLOGY METHOD 06/05[facility]2025 6[facility] MCH 28.0 27.0 - 32.0 pcg LAB HEMETOLOGY METHOD 06/05/2025 6:[address] [facility] MCHC 30.2(L) 32.0 - 37.0 g/dL LAB HEMETOLOGY METHOD 06/05/2025 6:[address] [facility] RDW 22.7(H) 11.0 - 15.0 % LAB HEMETOLOGY METHOD 06/05/2025 6:[address] [facility] Platelets 206 130 - 400 K/mcL LAB HEMETOLOGY METHOD 06/05/2025 6:[address] [facility] MPV 10.9 7.0 - 11.0 FL LAB HEMETOLOGY METHOD 06/05/2025 6:[address] [facility] NRBC 0.0 <1.0 % LAB HEMETOLOGY METHOD 06/05/2025 6:[address] [facility] NRBC Absolute 0.00 <0.10 K/mcL LAB HEMETOLOGY METHOD 06/05/2025 6:[address] [facility] Neutrophils Relative 68.9 % LAB HEMETOLOGY METHOD 06/05/2025 6:[address] [facility] Lymphocytes Relative 17.6 % LAB HEMETOLOGY METHOD 06/05/2025 6:[address] [facility] Monocytes Relative 9.9 % LAB HEMETOLOGY METHOD 06/05/2025 6:[address] [facility] Eosinophils Relative 2.5 % LAB HEMETOLOGY METHOD 06/05/2025 6:[address] [facility] Basophils Relative 0.5 % LAB HEMETOLOGY METHOD 06/05/2025 6:[address] [facility] Immature Granulocytes Relative 0.6 % LAB HEMETOLOGY METHOD 06/05/2025 6:[address] [facility] Neutrophils Absolute 6.91 1.50 - 7.00 K/mcL LAB HEMETOLOGY METHOD 06/05/2025 6:[address] [facility] Lymphocytes Absolute 1.77 1.00 - 5.00 K/mcL LAB HEMETOLOGY METHOD 06/05/2025 6:[address] [facility] Monocytes Absolute 0.99 0.20 - 1.00 K/mcL LAB HEMETOLOGY METHOD 06/05/2025 6:39 AM EDT [facility] Eosinophils Absolute 0.25 0.00 - 0.50 K/mcL LAB HEMETOLOGY METHOD 06/05/2025 6:39 AM EDT [facility] Basophils Absolute 0.05 0.00 - 0.20 K/mcL LAB HEMETOLOGY METHOD 06/05/2025 6:39 AM EDT [facility] Immature Granulocytes Absolute 0.06(H) 0.00 - 0.03 K/mcL LAB HEMETOLOGY METHOD 06/05/2025 6:39 AM EDT [facility] Blood Venous blood specimen / Unknown Venipuncture / Unknown 06/05/2025 5:29 AM EDT 06/05/2025 6:22 AM EDT Kia Le MD LAB BLOOD ORDERABLES Final Resul t Performing Organization Address City/[facility]/ZIP Co de Phone Number [facility] [address] [place] [address], * (ABNORMAL) Hemoglobin and hematocrit (06/05/2025 5:29 AM EDT) Only the most recent of11 resultswithin the time period is included. Hemoglobin 7.7(L) 11.5 - 16.0 g/dL LAB HEMETOLOGY METHOD 06/05/2025 6:39 AM EDT [facility] Hematocrit 25.5(L) 35.0 - 47.0 % LAB HEMETOLOGY METHOD 06/05/2025 6:39 AM EDT [facility] Blood Venous blood specimen / Unknown Venipuncture / Unknown 06/05/2025 5:29 AM EDT 06/05/2025 6:22 AM EDT us Kia Le MD LAB BLOOD ORDERABLES Final Resul t Performing Organization Address City/[facility]/ZIP Co de Phone Number [facility] [address] [place] [address], [place] [phone] * Magnesium (06/05/2025 5:29 AM EDT) Only the most recent of22 resultswithin the time period is included. [facility] Magnesium 1.9 1.9 - 2.6 mg/dL LAB CHEMISTRY METHOD 06/05/2025 7:[address] [facility] Blood Venous blood specimen / Unknown Venipuncture / Unknown 06/05/2025 5:29 AM EDT 06/05/2025 6:22 AM EDT us Kia Le MD LAB BLOOD ORDERABLES Final Resul t [facility] [address] [place] [address], [place] [phone] * (ABNORMAL) Basic metabolic panel (06/05/2025 5:29 AM EDT) Only the most recent of26 resultswithin the time period is included. [facility] Sodium 145 133 - 145 mmol/L LAB CHEMISTRY METHOD 06/05/2025 7:[address] [facility] Potassium 3.2(L) 3.5 - 5.5 mmol/L LAB CHEMISTRY METHOD 06/05/2025 7:[address] [facility] Chloride 110 96 - 110 mmol/L LAB CHEMISTRY METHOD 06/05/2025 7:[address] [facility] CO2 28 21 - 32 mmol/L LAB CHEMISTRY METHOD 06/05/2025 7:[address] [facility] Anion Gap 7 3 - 11 LAB CHEMISTRY METHOD 06/05/2025 7:[address] [facility] Glucose 84 70 - 100 mg/dL LAB CHEMISTRY METHOD 06/05/2025 7:[address] [facility] BUN 20 5 - 25 mg/dL LAB CHEMISTRY METHOD 06/05/2025 7:[address] [facility] Creatinine 2.95(H) 0.50 - 1.10 mg/dL LAB CHEMISTRY METHOD 06/05/2025 7:04 AM EDT [facility] eGFR 16(L) >=60 mL/min/1. 73m2 LAB CHEMISTRY METHOD 06/05/2025 7:04 AM EDT [facility] Comment:Calculation based on the Chronic Kidney Disease Epidemiology Collaboration (CKD-EPI) equation refit without adjustment for race. BUN/Creatinine Ratio 6.8 LAB CHEMISTRY METHOD 06/05/2025 7:04 AM EDT [facility] Calcium 7.6(L) 8.5 - 10.5 mg/dL LAB CHEMISTRY METHOD 06/05/2025 7:04 AM EDT [facility] Blood Venous blood specimen / Unknown Venipuncture / Unknown 06/05/2025 5:29 AM EDT 06/05/2025 6:22 AM EDT us Kia Le MD LAB BLOOD ORDERABLES Final Resul t Performing Organization Address City/[facility]/ZIP Co de Phone Number [facility] [address] [place] [address], [place] [phone] * (ABNORMAL) Calcium, ionized (06/04/2025 10:21 AM EDT) Only the most recent of15 resultswithin the time period is included. Calcium Ionized 4.09(L) 4.50 - 5.30 mg/dL 06/04/2025 11:21 AM EDT [facility] Blood Venous blood specimen / Unknown Venipuncture / Unknown 06/04/2025 10:21 AM EDT 06/04/2025 11:09 AM EDT us Kia Le MD LAB BLOOD ORDERABLES Final Resul t [facility] [address] [place] [address], [place] [phone] * (ABNORMAL) Albumin (06/04/2025 5:55 AM EDT) Only the most recent of3 resultswithin the time period is included. Albumin 2.4(L) 3.2 - 5.0 g/dL LAB CHEMISTRY METHOD 06/04/2025 9:51 AM EDT [facility] Blood Venous blood specimen / Unknown Venipuncture / Unknown 06/04/2025 5:55 AM EDT 06/04/2025 6:16 AM EDT us Kia Le MD LAB BLOOD ORDERABLES Final Resul t [facility] [address] [place] [address], [place] [phone] * SST tube (06/03/2025 12:00 AM EDT) Pathologist [facility] Extra Tube Hold for add-ons. 06/04/2025 12:01 AM EDT [facility] Comment:Auto resulted. Blood Venous blood specimen / Unknown 06/03/2025 06/03/2025 10:22 PM EDT us Kia Le MD LAB BLOOD ORDERABLES Final Resul t Performing Organization Address City/[facility]/ZIP Co de Phone Number [facility] [address] [place] [address], [place] [phone] * (ABNORMAL) Phosphorus (06/02/2025 5:53 AM EDT) Only the most recent of13 resultswithin the time period is included. Phosphorus 1.5(L) 2.5 - 4.5 mg/dL LAB CHEMISTRY METHOD 06/02/2025 6:41 AM EDT [facility] Blood Blood sample taken from central line / Unknown Venipuncture / Unknown 06/02/2025 5:53 AM EDT 06/02/2025 6:14 AM EDT us Kia Le MD LAB BLOOD ORDERABLES Final Resul t [facility] [address] [place] [address], [place] [phone] * Transfuse RBC, Leukoreduced (05/31/2025 6:54 PM EDT) Only the most recent of2 resultswithin the time period is included. us Kia Le MD BLOOD TRANSFUSION ORDERABLES Fin al Result * Prepare RBC: 1 Units, Leukoreduced (05/31/2025 2:40 PM EDT) Only the most recent of2 resultswithin the time period is included. [facility] Signature Product Code [id number] 05/31/2025 3:53 PM EDT [facility] Unit Number [id number] 05/31/20 3:53 PM EDT [facility] Crossmatch Compatible 05/31/2025 3:07 PM EDT [facility] Dispense Status Transfused 05/31/2025 3:53 PM EDT [facility] Unit ABO Rh BPOS 05/31/2025 3:53 PM EDT [facility] Unit Expiration Date Time [id number] 05/31/2025 3:53 PM EDT [facility] Unit Blood Type 7300 05/31/2025 3:53 PM EDT [facility] Blood Venous blood specimen / Unknown 05/31/2025 2:40 PM EDT 05/31/2025 4:34 AM EDT us Kia Le MD BLOOD BANK PRODUCT ORDERABLES Fi nal Result [facility] [address] [place] [address], [place] [phone] * (ABNORMAL) Prothrombin time with INR (05/31/2025 4:15 AM EDT) Only the most recent of5 resultswithin the time period is included. Pathologist [facility] Protime 19.9(H) 10.6 - 13.9 sec LAB COAGULATION METHOD 05/31/2025 4:44 AM EDT [facility] INR 1.6 LAB COAGULATION METHOD 05/31/2025 4:44 AM EDT [facility] Blood Venous blood specimen / Unknown Venipuncture / Unknown 05/31/2025 4:15 AM EDT 05/31/2025 4:34 AM EDT Mi AGARWAL LAB BLOOD ORDERABLES Fi nal Result [facility] [address] [place] [address], [place] [phone] * Type and screen (05/31/2025 4:15 AM EDT) [facility] ABO Group B 05/31/2025 5:28 AM EDT [facility] Rh Type Positive 05/31/2025 5:28 AM EDT [facility] Antibody Screen Negative 05/31/2025 5:28 AM EDT [facility] Blood Venous blood specimen / Unknown Venipuncture / Unknown 05/31/2025 4:15 AM EDT 05/31/2025 4:34 AM EDT us Mi AGARWAL LAB BLOOD BANK TEST ORD ERABLES Final Result [facility] [address] [place] [address], [place] [phone] * (ABNORMAL) Occult blood stool, guaiac (05/31/2025 3:07 AM EDT) Occult Blood, Stool #1 Positive( A) Negative 05/31/2025 3:34 AM EDT [facility] Stool Rectum structure / Unknown Non-blood Collection / Unknown 05/31/2025 3:07 AM EDT 05/31/2025 3:13 AM EDT us Mi AGARWAL LAB BODY FLUIDS AND STO OLS ORDERABLES Final Result [facility] [address] [place] [address], [place] [phone] * Vascular US duplex upper extremity venous [...] Signed Date: 05/30/2025 16:08 ET Workstation ID: [id number] Transcribed By: Self Edit Transcribed Date: 05/30/2025 [...] Signed Date: 05/30/2025 16:08 ET Workstation ID: [id number] Transcribed By: Self Edit Transcribed Date: 05/30/2025 16:07 ET Rosalind AGARWAL CV VASCULAR PROCEDURES Final Result * (ABNORMAL) Procalcitonin (05/30/2025 6:12 AM EDT) Only the most recent of2 resultswithin the time period is included. Procalcitonin 1.22(H) <=0.16 ng/mL LAB CHEMISTRY METHOD 05/30/2025 7:56 AM EDT [facility] Blood Venous blood specimen / Unknown Venipuncture / Unknown 05/30/2025 6:12 AM EDT 05/30/2025 6:28 AM EDT Narrative [facility] - 05/30/2025 7:56 AM EDT [...] DO LAB BLOOD ORDERABLES Final R esult [facility] [address] [place] [address], * (ABNORMAL) Hepatic function panel (05/30/2025 6:12 AM EDT) Only the most recent of4 resultswithin the time period is included. Total Protein 6.2 6.0 - 8.0 g/dL LAB CHEMISTRY METHOD 05/30/2025 6:57 AM EDT [facility] Albumin 2.2(L) 3.2 - 5.0 g/dL LAB CHEMISTRY METHOD 05/30/2025 6:57 AM EDT [facility] Total Bilirubin 0.3 0.0 - 1.4 mg/dL LAB CHEMISTRY METHOD 05/30/2025 6:[address] [facility] Bilirubin, Direct 0.2 0.0 - 0.3 mg/dL LAB CHEMISTRY METHOD 05/30/2025 6:[address] [facility] Bilirubin, Indirect 0.1 0.0 - 1.1 mg/dL LAB CHEMISTRY METHOD 05/30/2025 6:[address] [facility] ALT (SGPT) 14 10 - 60 unit/L LAB CHEMISTRY METHOD 05/30/2025 6:57 AM EDT [facility] AST (SGOT) 45(H) 10 - 42 unit/L LAB CHEMISTRY METHOD 05/30/2025 6:[address] [facility] Alkaline Phosphatase 195(H) 42 - 121 unit/L LAB CHEMISTRY METHOD 05/30/2025 6:[address] [facility] Blood Venous blood specimen / Unknown Venipuncture / Unknown 05/30/2025 6:12 AM EDT 05/30/2025 6:28 AM EDT us Amarjit Ayala DO LAB BLOOD ORDERABLES Final R esult [facility] [address] [place] [address], [place] [phone] * (ABNORMAL) CBC - Every 3 Days (05/29/2025 5:04 AM EDT) Only the most recent of4 resultswithin the time period is included. WBC 8.5 4.8 - 10.8 K/mcL LAB HEMETOLOGY METHOD 05/29/2025 5:[address] [facility] RBC 2.90(L) 3.80 - 4.80 M/mcL LAB HEMETOLOGY METHOD 05/29/2025 5:[address] [facility] Hemoglobin 7.6(L) 11.5 - 16.0 g/dL LAB HEMETOLOGY METHOD 05/29/2025 5:[address] [facility] Hematocrit 24.9(L) 35.0 - 47.0 % LAB HEMETOLOGY METHOD 05/29/2025 5:[address] [facility] MCV 85.3 79.0 - 98.0 FL LAB HEMETOLOGY METHOD 05/29/2025 5:[address] [facility] MCH 26.0(L) 27.0 - 32.0 pcg LAB HEMETOLOGY METHOD 05/29/2025 5:19 AM EDT [facility] MCHC 30.5(L) 32.0 - 37.0 g/dL LAB HEMETOLOGY METHOD 05/29/2025 5:19 AM EDT [facility] RDW 21.0(H) 11.0 - 15.0 % LAB HEMETOLOGY METHOD 05/29/2025 5:19 AM EDT [facility] Platelets 214 130 - 400 K/mcL LAB HEMETOLOGY METHOD 05/29/2025 5:19 AM EDT [facility] MPV 10.7 7.0 - 11.0 FL LAB HEMETOLOGY METHOD 05/29[facility]2025 [facility] NRBC 0.2 <1.0 % LAB HEMETOLOGY METHOD 05/29/2025 5:19 AM EDT [facility] NRBC Absolute 0.02 <0.10 K/mcL LAB HEMETOLOGY METHOD 05/29/2025 5:[address] [facility] Blood Blood sample taken from central line / Unknown Venipuncture / Unknown 05/29/2025 5:04 AM EDT 05/29/2025 5:12 AM EDT us Charlotte Camara MD LAB BLOOD ORDERABLES Final Re sult [facility] [address] [place] [address], * (ABNORMAL) Venous blood gas (05/28/2025 10:26 PM EDT) Only the most recent of4 resultswithin the time period is included. pH, Mukesh 7.45(H) 7.32 - 7.42 pH 05/28/2025 10:47 PM EDT [facility] pCO2, Mukesh 54(H) 41 - 51 mmHg 05/28/2025 10:47 PM EDT [facility] pO2, Mukesh 33 25 - 40 mmHg 05/28/2025 10:47 PM EDT [facility] HCO3, Venous 33.6(H) 22.0 - 26.0 mmol/L 05/28/2025 10:47 PM EDT [facility] O2 Sat, Mukesh 59.7 % 05/28/2025 10:47 PM EDT [facility] Base Excess, Mukesh 12.0(H) -2.0 - 2.0 mmol/L 05/28/2025 10:47 PM EDT [facility] Blood Venous blood specimen / Unknown Venipuncture / Unknown 05/28/2025 10:26 PM EDT 05/28/2025 10:44 PM EDT us Charlotte Camara MD LAB BLOOD ORDERABLES Final Re sult Performing Organization Address [facility]/ZIP Co de Phone Number [facility] [address] [place] [address], [place] [phone] * (ABNORMAL) Activated Partial Thromboplastin Time - STAT (05/28/2025 5:22 PM EDT) Only the most recent of15 resultswithin the time period is included. aPTT 109.1() 24.1 - 39.3 sec LAB COAGULATION METHOD 05/28/2025 6:26 PM EDT [facility] Blood Venous blood specimen / Unknown Venipuncture / Unknown 05/28/2025 5:22 PM EDT 05/28/2025 5:35 PM EDT us Charlotte Camara MD LAB BLOOD ORDERABLES Final Re sult Performing Organization Address City/[facility]/ZIP Co de Phone Number [facility] [address] [place] [address], [place] [phone] * Heparin and low molecular weight anti Xa level (05/28/2025 11:27 AM EDT) Only the most recent of14 resultswithin the time period is included. [facility] Heparin Anti-Xa 0.56 0.30 - 0.70 I Unit/mL LAB COAGULATION METHOD 05/28/2025 12:14 PM EDT [facility] Blood Venous blood specimen / Unknown Venipuncture / Unknown 05/28/2025 11:27 AM EDT 05/28/2025 11:37 AM EDT Narrative [facility] - 05/28/2025 12:14 PM EDT Therapeutic range listed is for Unfractionated Heparin. LMW Heparin therapeutic range: 0.50-1.20 IU/mL us Charlotte Camara MD LAB BLOOD ORDERABLES Final Re sult Performing Organization Address City/[facility]/ZIP Co de Phone Number [facility] [address] [place] [address], [place] [phone] * Lactate (05/28/2025 3:57 AM EDT) Only the most recent of2 resultswithin the time period is included. [facility] Lactate 1.7 0.4 - 2.0 mmol/L LAB CHEMISTRY METHOD 05/28/2025 4:35 AM EDT [facility] Blood Venous blood specimen / Unknown Existing Catheter / Unknown 05/28/2025 3:57 AM EDT 05/28/2025 4:03 AM EDT us Charlotte Camara MD LAB BLOOD ORDERABLES Final Re sult [facility] [address] [place] [address], [place] [phone] * (ABNORMAL) Comprehensive metabolic panel (05/28/2025 3:57 AM EDT) Only the most recent of6 resultswithin the time period is included. Sodium 139 133 - 145 mmol/L LAB CHEMISTRY METHOD 05/28/2025 5:[address] [facility] Potassium 3.4(L) 3.5 - 5.5 mmol/L LAB CHEMISTRY METHOD 05/28/2025 5:[address] [facility] Chloride 100 96 - 110 mmol/L LAB CHEMISTRY METHOD 05/28/2025 5:[address] [facility] CO2 28 21 - 32 mmol/L LAB CHEMISTRY METHOD 05/28/2025 5:[address] [facility] Anion Gap 11 3 - 11 LAB CHEMISTRY METHOD 05/28/2025 5:[address] [facility] Glucose 101(H) 70 - 100 mg/dL LAB CHEMISTRY METHOD 05/28/2025 5:[address] [facility] BUN 59(H) 5 - 25 mg/dL LAB CHEMISTRY METHOD 05/28/2025 5:[address] [facility] Creatinine 5.33(H) 0.50 - 1.10 mg/dL LAB CHEMISTRY METHOD 05/28/2025 5:[address] [facility] eGFR 8(L) >=60 mL/min/1. 73m2 LAB CHEMISTRY METHOD 05/28/2025 5:[address] [facility] Comment:Calculation based on the Chronic Kidney Disease Epidemiology Collaboration (CKD-EPI) equation refit without adjustment for race. BUN/Creatinine Ratio 11.1 LAB CHEMISTRY METHOD 05/28/2025 5:[address] [facility] Calcium 8.1(L) 8.5 - 10.5 mg/dL LAB CHEMISTRY METHOD 05/28/2025 5:[address] [facility] AST (SGOT) 47(H) 10 - 42 unit/L LAB CHEMISTRY METHOD 05/28/2025 5:[address] [facility] ALT (SGPT) 15 10 - 60 unit/L LAB CHEMISTRY METHOD 05/28/2025 5:00 AM EDT [facility] Alkaline Phosphatase 189(H) 42 - 121 unit/L LAB CHEMISTRY METHOD 05/28/2025 5:00 AM EDT [facility] Total Protein 5.3(L) 6.0 - 8.0 g/dL LAB CHEMISTRY METHOD 05/28/2025 5:00 AM EDT [facility] Albumin 1.5(L) 3.2 - 5.0 g/dL LAB CHEMISTRY METHOD 05/28/2025 5:00 AM EDT [facility] Total Bilirubin 0.3 0.0 - 1.4 mg/dL LAB CHEMISTRY METHOD 05/28/2025 5:00 AM EDT [facility] Blood Venous blood specimen / Unknown Existing Catheter / Unknown 05/28/2025 3:57 AM EDT 05/28/2025 4:04 AM EDT us Charlotte Camara MD LAB BLOOD ORDERABLES Final Re sult [facility] [address] [place] [address], * IR Insert Tunneled CVC wo Port [...] Signed Date: 05/28/2025 15:05 ET Workstation ID: [id number] Transcribed By: Self Edit Transcribed Date: 05/28/2025 08:30 ET Resident/PA/BUILDING DRAFTER: Sharon Hassan 05/28/2025 3:05 PM EDT INDICATIONS: HD catheter [...] Signed Date: 05/28/2025 15:05 ET Workstation ID: [id number] Transcribed By: Self Edit Transcribed Date: 05/28/2025 08:30 ET Resident/PA/BUILDING DRAFTER: Sharon Hassan Amarjit Ayala DO IMG IR PROCEDURES Final Resu lt * (ABNORMAL) TRANSTHORACIC ECHOCARDIOGRAM (TTE) COMPLETE (05/26/2025 [...] 40 mL CV PACS Left [facility] Minor [place] 5.9 cm CV PACS Left [facility] [place] 5.8 cm CV PACS LA Area Sys (A2C) 23 cm2 CV PACS LA Area Sys (A4C) 25 cm2 CV PACS LA Volume (BP) 83 mL CV PACS LA Size 4.6 cm CV PACS RA Area 24.4 cm2 CV PACS RA 2D Volume 81 mL CV PACS AV Mean Gradient 3 mmHg CV PACS Ao VTI 19.1 cm CV PACS AV Peak Miguel 1.1 m/s CV PACS AV Peak Gradient 5 mmHg CV PACS AV Area Continuity Equation 2.1 cm2 CV PACS AV Area Peak Velocity 2.2 cm2 CV PACS Aortic Arch 2.3 cm CV PACS Ascending Aorta 3.4 cm CV PACS Aortic Sinus Valsalva 3.1 cm CV PACS IVC Proximal 1.7 cm CV PACS MV Deceleration Hale 9.0 m/s2 CV PACS E Wave Deceleration [...] Details Overall the study quality was adequate. Amarjit Ayala DO CV ECHO PROCEDURES Final Res ult * Digoxin level (05/25/2025 6:23 PM EDT) Only the most recent of4 resultswithin the time period is included. Digoxin Lvl 0.6 0.5 - 2.0 ng/mL LAB CHEMISTRY METHOD 05/25/2025 7:44 PM EDT [facility] Blood Blood sample taken from central line / Unknown Venipuncture / Unknown 05/25/2025 6:23 PM EDT 05/25/2025 6:43 PM EDT Charlotte Camara MD LAB BLOOD ORDERABLES Final Re sult Performing Organization Address City/[facility]/ZIP Co de Phone Number [facility] [address] [place] [address], [place] [phone] * (ABNORMAL) Hemoglobin A1c (05/25/2025 5:59 AM EDT) Hemoglobin A1C 7.6(H) <6.5 % LAB CHEMISTRY METHOD 05/26/2025 8:28 AM EDT [facility] Mean Bld Glu Estim. 171 mg/dL LAB CHEMISTRY METHOD 05/26/2025 8:28 AM EDT [facility] Blood Venous blood specimen / Unknown Existing Catheter / Unknown 05/25/2025 5:59 AM EDT 05/25/2025 6:06 AM EDT Charlotte Camara MD LAB BLOOD ORDERABLES Final Re sult Performing Organization Address [facility]/ZIP Co de Phone Number [facility] [address] [place] [address], [place] [phone] * (ABNORMAL) Urinalysis microscopic only (05/24/2025 5:12 PM EDT) RBC, Urine 45.5(H) 0 - 4 /HPF LAB URINALYSIS - AUTOMATED METHOD 05/24/2025 6:36 PM EDT [facility] WBC, Urine >4,000(H) 0 - 4 /HPF LAB URINALYSIS - AUTOMATED METHOD 05/24/2025 6:36 PM EDT [facility] Squamous Epithelial, Urine 48 0 - 60 /LPF LAB URINALYSIS - AUTOMATED METHOD 05/24/2025 6:36 PM EDT [facility] Bacteria, Urine Few(A) Negative /HPF LAB URINALYSIS - AUTOMATED METHOD 05/24/2025 6:36 PM EDT [facility] Hyaline Casts, Urine 4.0(H) 0 - 3 /LPF LAB URINALYSIS - AUTOMATED METHOD 05/24/2025 6:36 PM EDT [facility] Urine Urine specimen obtained by clean catch procedure / Unknown Non-blood Collection / Unknown 05/24/2025 5:12 PM EDT 05/24/2025 5:22 PM EDT us Amarjit Ayala DO LAB URINE ORDERABLES Final R esult Performing Organization Address [facility] de Phone Number [facility] [address] [place] [address], [place] [phone] * Hepatitis B surface antigen with reflex to confirmation (05/24/2025 2:05 PM EDT) Hepatitis B Surface Ag Negative Negative LAB CHEMISTRY METHOD 05/24/2025 4:06 PM EDT [facility] Blood Venous blood specimen / Unknown Venipuncture / Unknown 05/24/2025 2:05 PM EDT 05/24/2025 2:18 PM EDT Narrative [facility] - 05/24/2025 4:06 PM EDT Over the counter supplements containing high doses of biotin may interfere with this assay. If interference is suspected, patients shoud be retested after refraining from biotin supplements for 72 hours. us Desmond Molina MD LAB BLOOD ORDERABLES Final R esult Performing Organization Address [facility]/ZIP Co de Phone Number [facility] [address] [place] [address], [place] [phone] * Treponema pallidum antibody with reflex to RPR and particle agglutination (05/24/2025 2:05 PM EDT) T. Pallidum Antibodies Negative Negative LAB CHEMISTRY METHOD 05/24/2025 4:05 PM EDT [facility] Blood Venous blood specimen / Unknown Venipuncture / Unknown 05/24/2025 2:05 PM EDT 05/24/2025 2:18 PM EDT [facility] Final R esult Performing Organization Address [facility]/ZIP Co de Phone Number [facility] [address] [place] [address], [place] [phone] * Thyroid stimulating hormone with reflex to free t4 and free t3 (05/24/2025 2:05 PM EDT) TSH 2.67 0.40 - 4.00 mcIU/mL LAB CHEMISTRY METHOD 05/24/2025 3:56 PM EDT [facility] Blood Venous blood specimen / Unknown Venipuncture / Unknown 05/24/2025 2:05 PM EDT 05/24/2025 2:18 PM EDT Amarjit Ayala LAB BLOOD ORDERABLES Final R esult Performing Organization Address City/[facility]/ZIP Co de Phone Number [facility] [address] [place] [address], [place] [phone] * Hepatitis B surface antibody quantitative (05/24/2025 2:05 PM EDT) Hepatitis B Surface Ab Negative Negative LAB CHEMISTRY METHOD 05/24/2025 3:55 PM EDT [facility] Hepatitis B Surface Ab Quantitative 3.5 mIU/mL LAB CHEMISTRY METHOD 05/24/2025 3:55 PM EDT [facility] Blood Venous blood specimen / Unknown Venipuncture / Unknown 05/24/2025 2:05 PM EDT 05/24/2025 2:18 PM EDT Narrative [facility] - 05/24/2025 3:55 PM EDT >=10 mIU/mL is considered to be consistent with immunity. Desmond Molina MD LAB BLOOD ORDERABLES Final R esult [facility] [address] [place] [address], [place] [phone] * Folate (05/24/2025 2:05 PM EDT) Folate 13.2 2.8 - 17.0 ng/ml LAB CHEMISTRY METHOD 05/24/2025 3:20 PM EDT [facility] Blood Venous blood specimen / Unknown Venipuncture / Unknown 05/24/2025 2:05 PM EDT 05/24/2025 2:18 PM EDT Amarjit Ayala DO LAB BLOOD ORDERABLES Final R esult Performing Organization Address City/[facility]/ZIP Co de Phone Number [facility] [address] [place] [address], [place] [phone] * (ABNORMAL) Vitamin B12 (05/24/2025 2:05 PM EDT) Pathologist [facility] Vitamin B-12 1,040(H) 250 - 900 pcg/mL LAB CHEMISTRY METHOD 05/24/2025 3:20 PM EDT [facility] Blood Venous blood specimen / Unknown Venipuncture / Unknown 05/24/2025 2:05 PM EDT 05/24/2025 2:18 PM EDT Amarjit Ayala DO LAB BLOOD ORDERABLES Final R esult [facility] [address] [place] [address], [place] [phone] * Cortisol (05/24/2025 2:05 PM EDT) Cortisol 13.1 mcg/dL LAB CHEMISTRY METHOD 05/24/2025 3:55 PM EDT [facility] Blood Venous blood specimen / Unknown Venipuncture / Unknown 05/24/2025 2:05 PM EDT 05/24/2025 2:18 PM EDT Narrative [facility] - 05/24/2025 3:55 PM EDT CORTISOL REFERENCE RANGE 8 AM SPEC: 5.0-23.0 mcg/dL 4 PM SPEC: 3.0-16.0 mcg/dL 8 PM SPEC: <5.0 mcg/dL us Amarjit Ayala DO LAB BLOOD ORDERABLES Final R esult [facility] [address] [place] [address], [place] [phone] * (ABNORMAL) Vitamin D 1,25 dihydroxy (05/24/2025 9:11 AM EDT) Vitamin D, 1, 25-Dihydroxy 19(L) 20 - 79 pg/mL 05/27/2025 9:55 PM EDT [facility] Comment: Vitamin D 1, 25 dihydroxy levels should be primarily used to assess Vitamin D status in patients with renal disease and hypercalcemia. Vitamin D 1,25-dihydroxy levels are generally less than 5 pg/mL in end stage renal disease patients. The preferred initial test for assessing Vitamin D status in the general population is Vitamin D 25-hydroxy (VITD). Test performed at [facility], [address] , [place] [address] Rozina Peterson MD, PhD - Sustainability Project Coordinator Blood Venous blood specimen / Unknown Venipuncture / Unknown 05/24/2025 9:11 AM EDT 05/24/2025 9:57 AM EDT Jacobo Davis MD LAB BLOOD ORDERABLES Final Result [facility] [address] [place] [address] * Angiotensin converting enzyme (05/24/2025 9:11 AM EDT) Angiotensin Converting Enzyme (FLORA) 43 8 - 52 U/L 05/27/2025 11:17 AM EDT [facility] Comment: Test performed at [facility], [address] , [place] [address] Rozina Peterson MD, PhD - Sustainability Project Coordinator Blood Venous blood specimen / Unknown Venipuncture / Unknown 05/24/2025 9:11 AM EDT 05/24/2025 9:57 AM EDT Jacobo Davis MD LAB BLOOD ORDERABLES Final Result Performing Organization Address [facility]/ZIP Co de Phone Number [facility] [address] [place] [address] * Lavender tube (05/24/2025 12:17 AM EDT) Only the most recent of5 resultswithin the time period is included. [facility] Extra Tube Hold for add-ons. 05/24/2025 2:01 AM EDT [facility] Comment:Auto resulted. Blood Venous blood specimen / Unknown Venipuncture / Unknown 05/24/2025 12:17 AM EDT 05/24/2025 12:33 AM EDT Desmond Molina MD LAB BLOOD ORDERABLES Final R esult [facility] [address] [place] [address], [place] [phone] * Potassium (05/23/2025 3:54 PM EDT) [facility] Potassium 5.3 3.5 - 5.5 mmol/L LAB CHEMISTRY METHOD 05/23/2025 4:39 PM EDT [facility] Blood Venous blood specimen / Unknown Venipuncture / Unknown 05/23/2025 3:54 PM EDT 05/23/2025 4:17 PM EDT us Desmond Molina MD LAB BLOOD ORDERABLES Final R esult [facility] [address] [place] [address], [place] [phone] * XR Chest 1 View (05/23/2025 10:22 AM EDT) Only the most recent of2 resultswithin the time period is included. Anatomical Region Laterality Modality Body Radiographic Steph ging 05/23/2025 10:4 3 AM EDT Impressions 05/23/2025 10:45 AM EDT Cardiomegaly, also seen on 09/14/2024. Moderate pulmonary vascular congestion with small bilateral pleural effusions has developed since the prior study consistent with interval development of congestive heart failure. Code [address] CT T[facility] -------- FINAL REPORT -------- Dictated By: Myke Bower Dictated Date: 05/23/2025 10:43 ET Assigned Physician: Myke Bower Reviewed and Electronically Signed By: Myke Bower Signed Date: 05/23/2025 10:45 ET Workstation ID: [id number] Transcribed By: Self Edit Transcribed Date: 05/23/2025 [...] consolidation or mass is seen. Procedure Note Myke Bower MD - 05/23/2025 HISTORY: The patient is [...] with interval development of congestive heartfailure. Code 96805 CT Teleradiology -------- FINAL REPORT -------- Dictated By: Myke Bower Dictated Date: 05/23/2025 10:43 ET Assigned Physician: Myke Bower Reviewed and Electronically Signed By: Myke Bower Signed Date: 05/23/2025 10:45 ET Workstation ID: [id number] Transcribed By: Self Edit Transcribed Date: 05/23/2025 10:43 ET Desmond Molina MD IMG XR PROCEDURES Final Resu lt * Light blue tube (05/22/2025 5:52 AM EDT) Only the most recent of2 resultswithin the time period is included. Extra Tube Hold for add-ons. 05/22/2025 8:01 AM EDT [facility] Comment:Auto resulted. Blood Venous blood specimen / Unknown Venipuncture / Unknown 05/22/2025 5:52 AM EDT 05/22/2025 6:19 AM EDT us Desmond Molina MD LAB BLOOD ORDERABLES Final R esult [facility] [address] [place] [address], [place] [phone] * Blood Culture, Peripheral Draw #2 (05/21/2025 8:57 AM EDT) Only the most recent of2 resultswithin the time period is included. [facility] Culture, Blood No growth at 5 days LAB MICROBIOLOGY METHOD 05/26/2025 12:01 PM EDT [facility] Blood Venous blood specimen / Unknown Venipuncture / Unknown 05/21/2025 8:57 AM EDT 05/21/2025 9:03 AM EDT [facility] LAB MICROBIOLOGY - GENERAL O RDERABLES Final Result [facility] [address] [place] [address], [place] [phone] * (ABNORMAL) Urinalysis with reflex microscopic and culture (05/21/2025 5:09 AM EDT) [facility] Specific [place] Urine 1.010 1.003 - 1.030 LAB URINALYSIS - AUTOMATED METHOD 05/21/2025 7:[address] [facility] pH, Urine 6.0 5.0 - 8.0 pH LAB URINALYSIS - AUTOMATED METHOD 05/21/2025 7:[address] [facility] Leukocytes, Urine Large(A) Negative LAB URINALYSIS - AUTOMATED METHOD 05/21/2025 7:[address] [facility] Nitrite, Urine Positive(A) Negative LAB URINALYSIS - AUTOMATED METHOD 05/21/2025 7:[address] [facility] Protein, Urine 100(A) <=Trace mg/dL LAB URINALYSIS - AUTOMATED METHOD 05/21/2025 7:[address] [facility] Glucose, Urine 250(A) Negative mg/dL LAB URINALYSIS - AUTOMATED METHOD 05/21/2025 7:[address] [facility] Ketones, Urine Negative Negative mg/dL LAB URINALYSIS - AUTOMATED METHOD 05/21/2025 7:[address] [facility] Urobilinogen , Urine 0.2 0.2 - 1.0 mg/dL LAB URINALYSIS - AUTOMATED METHOD 05/21/2025 7:[address] [facility] Bilirubin, Urine Negative Negative LAB URINALYSIS - AUTOMATED METHOD 05/21/2025 7:[address] [facility] Blood, Urine Large(A) Negative LAB URINALYSIS - AUTOMATED METHOD 05/21/2025 7:[address] [facility] RBC, Urine 2.0 0 - 4 /HPF LAB URINALYSIS - AUTOMATED METHOD 05/21/2025 7:[address] [facility] WBC, Urine 300.0(H) 0 - 4 /HPF LAB URINALYSIS - AUTOMATED METHOD 05/21/2025 7:[address] [facility] Squamous Epithelial, Urine 10 0 - 60 /LPF LAB URINALYSIS - AUTOMATED METHOD 05/21/2025 7:[address] [facility] Bacteria, Urine Many(A) Negative /HPF LAB URINALYSIS - AUTOMATED METHOD 05/21/2025 7:[address] [facility] Hyaline Casts, Urine 2.0 0 - 3 /LPF LAB URINALYSIS - AUTOMATED METHOD 05/21/2025 7:[address] [facility] Urine Urine specimen obtained by clean catch procedure / Unknown Non-blood Collection / Unknown 05/21/2025 5:09 AM EDT 05/21/2025 7:07 AM EDT us Ivania Vidal MD LAB URINE ORDERABLES Final Result [facility] [address] [place] [address], [place] [phone] * Ponce urine culture tube (05/21/2025 5:09 AM EDT) Extra Tube Hold for add-ons. 05/21/2025 9:01 AM EDT [facility] Comment:Auto resulted. Urine Urine specimen obtained by clean catch procedure / Unknown Non-blood Collection / Unknown 05/21/2025 5:09 AM EDT 05/21/2025 7:07 AM EDT us Ivania Vidal MD LAB URINE ORDERABLES Final Result [facility] [address] [place] [address], [place] [phone] * Sodium, urine, random (05/21/2025 5:09 AM EDT) Pathologist [facility] Sodium, Ur 96 mmol/L LAB CHEMISTRY METHOD 05/21/2025 7:38 AM EDT [facility] Urine Urine specimen from urethra / Unknown Non-blood Collection / Unknown 05/21/2025 5:09 AM EDT 05/21/2025 7:07 AM EDT us Tova AGARWAL LAB URINE ORDERABLES Final R esult [facility] [address] [place] [address], [place] [phone] * (ABNORMAL) Osmolality, urine (05/21/2025 5:09 AM EDT) Osmolality, Urine 252(L) 300 - 1,300 mOsm/kg LAB CHEMISTRY METHOD 05/21/2025 8:12 AM EDT [facility] Urine Urine specimen obtained by clean catch procedure / Unknown Non-blood Collection / Unknown 05/21/2025 5:09 AM EDT 05/21/2025 7:07 AM EDT Tova AGARWAL LAB URINE ORDERABLES Final R esult Performing Organization Address City/[facility]/ZIP Co de Phone Number [facility] [address] [place] [address], [place] [phone] * Creatinine, urine, random (05/21/2025 5:09 AM EDT) Creatinine, Urine <13.0 mg/dL LAB CHEMISTRY METHOD 05/21/2025 7:43 AM EDT [facility] Urine Urine specimen from urethra / Unknown Non-blood Collection / Unknown 05/21/2025 5:09 AM EDT 05/21/2025 7:07 AM EDT Tova AGARWAL LAB URINE ORDERABLES Final R esult Performing Organization Address [facility] Co de Phone Number [facility] [address] [place] [address], [place] [phone] * Tissue exam (05/20/2025 12:35 PM EDT) Pathologist [facility] Addendum Breast Carcinoma Biomarkers: NOTE: The results [...] positive=1-10% positive nuclei, Positive >10% positive nuclei ND: Staining evaluation ND: Positive= >1% positive nuclei. HER2: Staining evaluation [...] tests In Vitro Diagnostic: ER clone SP1 Opality, ND clone 16 Leica Analyte specific reagents: HER2 clone EP3 Biocare 4:40 PM EDT [facility] Addendum electronically signed by Radha Tejeda MD on 05/24/2025 at 1640 EDT Final Diagnosis Bone, left iliac, biopsy: Metastatic carcinoma, compatible with breast primary. 4:40 PM EDT [facility] at 1625 EDT Comment Immunohistochemical stains for GATA3 and cytokeratin ISAK are performed on not decalcified specimen (A1) and are interpreted as negative for metastatic carcinoma. Block A2 (decalcified) contains areas of concern not present on A1. Immunohistochemical stain for GATA3 is interpreted as positive, supporting the above diagnosis. Control stains appropriately. Additionally, patient's prior specimen [id number] is compared and is morphologically similar, further supporting metastasis from the same. Prognostic markers will be attempted on block A2, however negative staining should be interpreted with caution due to decalcification. Social Work Therapist slide(s) from this case have been presented at Anatomic Pathology Intradepartmental Review Conference on 05/23/25. 4:40 PM EDT [facility] Gross Description A. Bone, left [...] Approximately 35 hours TS 4:40 PM EDT [facility] Disclaimer NOTE: The immunohistochemical tests and in situ hybridization tests were developed and their performance characteristics were determined by [facility]. They have not been [...] fixed and paraffin embedded. 4:40 PM EDT [facility] Bone Bone structure / Unknown 05/20/2025 12:35 PM EDT 05/20/2025 12:46 PM EDT Rahul Loyola MD LAB PATHOLOGY ORDERABLES Edited Result - Final [facility] [address] [place] [address], * IR Bx Bone Trocar/Ndl Deep (05/20/2025 [...] Signed Date: 05/20/2025 14:31 ET Workstation ID: [id number] Transcribed By: Self Edit Transcribed Date: 05/20/2025 [...] Signed Date: 05/20/2025 14:31 ET Workstation ID: [id number] Transcribed By: Self Edit Transcribed Date: 05/20/2025 14:29 ET us Gladis Mcgovern MD IMG IR PROCEDURES Final Result * XR Abdomen 1 View (05/18/2025 3:33 [...] Signed Date: 05/18/2025 15:42 ET Workstation ID: [id number] Transcribed By: Self Edit Transcribed Date: 05/18/2025 [...] Signed Date: 05/18/2025 15:42 ET Workstation ID: [id number] Transcribed By: Self Edit Transcribed Date: 05/18/2025 [...] IMG MRI PROCEDURES Final Resu lt * NM Bone/Joint Scan Whole Body (05/17/2025 3:09 PM EDT) Anatomical Region Laterality Modality Nuclear Medicine 05/17/2025 5:21 PM EDT Impressions 05/17/2025 5:28 PM EDT Diffuse skeletal metastases. -------- FINAL REPORT -------- Dictated By: Roula Macario Dictated Date: 05/17/2025 17:21 ET Assigned Physician: Roula Macario Reviewed and Electronically Signed By: Roula Macario Signed Date: 05/17/2025 17:28 ET Workstation ID: [id number] Transcribed By: Self Edit Transcribed Date: 05/17/2025 [...] Signed Date: 05/17/2025 17:28 ET Workstation ID: [id number] Transcribed By: Self Edit Transcribed Date: 05/17/2025 17:21 ET Ernesto Lynch MD IMG NM PROCEDURES Final Resul t * CT Chest/Abdomen/Pelvis w Contrast (05/16/2025 1:55 [...] Signed Date: 05/16/2025 14:48 ET Workstation ID: [id number] Transcribed By: Self Edit Transcribed Date: 05/16/2025 [...] deformities. Soft tissues are unremarkable. Procedure Note Roula Macario MD - 05/16/2025 CT CHEST, ABDOMEN [...] Signed Date: 05/16/2025 14:48 ET Workstation ID: [id number] Transcribed By: Self Edit Transcribed Date: 05/16/2025 14:41 ET Ernesto Lynch MD IMG CT PROCEDURES Final Resul t * (ABNORMAL) Parathyroid hormone related protein (05/16/2025 12:42 PM EDT) PTH-related Protein (PTHrP) 9(L) 11 - 20 pg/mL 05/23/2025 1:40 AM EDT [facility] Comment: This is a C-terminal PTH-RP assay. PTH-RP is useful in the differential diagnosis of hypercalcemia and levels may be elevated in patients with tumor-associated hypercalcemia. Elevated results may also be observed in patients with renal disease. This test was developed and its analytical performance characteristics have been determined by [facility]. It has not been cleared or approved by the FDA. This assay has been validated pursuant to the CLIA regulations and is used for clinical purposes. Test Performed at: [facility] [address] [id number] Asa Sun MD, PhD, [place]IMBER[place]E Blood Venous blood specimen / Unknown Venipuncture / Unknown 05/16/2025 12:42 PM EDT 05/16/2025 12:53 PM EDT Ernesto Lynch MD LAB BLOOD ORDERABLES Final Re sult [facility] [address] [place] [address] * (ABNORMAL) Parathyroid hormone intact (05/16/2025 12:41 PM EDT) PTH 9.7(L) 18.5 - 88.0 pcg/mL LAB CHEMISTRY METHOD 05/16/2025 1:35 PM EDT [facility] Blood Venous blood specimen / Unknown Venipuncture / Unknown 05/16/2025 12:41 PM EDT 05/16/2025 12:53 PM EDT us Ernesto Lynch MD LAB BLOOD ORDERABLES Final Re sult [facility]) [facility] [address] [place] [address], [place] [phone] * (ABNORMAL) [place]-lambda free light chains, quantitative (05/16/2025 5:52 AM EDT) [place] Free Light Chain 7.64(H) 0.33 - 1.94 mg/dL 05/20/2025 12:36 PM EDT [facility] Lambda Free Light Chain 6.05(H) 0.57 - 2.63 mg/dL 05/20/2025 12:36 PM EDT [facility] [place]/Lambda FLC Ratio 1.26 0.26 - 1.65 05/20/2025 12:36 PM EDT [facility] Comment: Test performed at [facility], [address], [place] [address] Rozina Peterson MD, PhD - Sustainability Project Coordinator Blood Venous blood specimen / Unknown Venipuncture / Unknown 05/16/2025 5:52 AM EDT 05/16/2025 6:15 AM EDT us Rosalind AGARWAL LAB BLOOD ORDERABLES Final Re sult [facility] [address] [place] [address] * ECG-Annotated (05/16/2025) us Provider Onbase ECG ORDERABLES Final Result * PATHOLOGIST REVIEW PROTEIN ELECTROPHORESIS (05/15/2025 11:14 PM EDT) Pathologist Interpretation Rachna Garcia MD 05/20/2025 2:41 PM EDT [facility] Blood Venous blood specimen / Unknown Venipuncture / Unknown 05/15/2025 11:14 PM EDT 05/15/2025 11:23 PM EDT us Jhoan Sanz MD LAB BLOOD ORDERABLES Final Result Performing Organization Address [facility]/ZIP Co de Phone Number [facility] [address] [place] [address], [place] [phone] * Hepatitis panel, acute with reflex to confirmation (05/15/2025 11:14 PM EDT) [facility] Hepatitis B Surface Ag Negative Negative LAB CHEMISTRY METHOD 05/16/2025 1:21 AM EDT [facility] Hepatitis A Antibody IgM Negative Negative LAB CHEMISTRY METHOD 05/16/2025 1:21 AM EDT [facility] Hep B Core IgM Negative Negative LAB CHEMISTRY METHOD 05/16/2025 1:21 AM EDT [facility] Hepatitis C Antibody Negative Negative LAB CHEMISTRY METHOD 05/16/2025 1:21 AM EDT [facility] Blood Venous blood specimen / Unknown Venipuncture / Unknown 05/15/2025 11:14 PM EDT 05/15/2025 11:24 PM EDT Rosalind AGARWAL LAB BLOOD ORDERABLES Final Re sult Performing Organization Address [facility]/ZIP Co de Phone Number [facility] [address] [place] [address], [place] [phone] * (ABNORMAL) Protein electrophoresis, serum (05/15/2025 11:14 PM EDT) [facility] Total Protein 8.8(H) 6.0 - 8.0 g/dL LAB CHEMISTRY METHOD 05/20/2025 2:41 PM EDT [facility] Albumin, Serum 2.2(L) 2.9 - 4.1 g/dL LAB CHEMISTRY METHOD 05/20/2025 2:41 PM EDT [facility] Alpha 1 Globulin (g/dL) 0.7(H) 0.1 - 0.5 g/dL LAB CHEMISTRY METHOD 05/20/2025 2:41 PM EDT [facility] Alpha 2 Globulin (g/dL) 1.6(H) 0.7 - 1.5 g/dL LAB CHEMISTRY METHOD 05/20/2025 2:41 PM EDT [facility] Beta (g/dL) 1.3 0.7 - 1.5 g/dL LAB CHEMISTRY METHOD 05/20/2025 2:41 PM EDT [facility] Gamma Globulin (g/dL) 3.1(H) 0.7 - 1.9 g/dL LAB CHEMISTRY METHOD 05/20/2025 2:41 PM EDT [facility] SPEP Interpretation No M-Jessee seen. Hypoalbuminem ia, suggestive of malnutrition, decreased hepatic synthesis or renal/GI loss Elevated alpha-1 fraction, suggestive of acute or or chronic inflammation. Elevated alpha-2 fraction, suggestive of acute phase reaction Hypergammaglo binemia Polyclonal. Pattern may be associated with chronic inflammation, chronic LAB CHEMISTRY METHOD 05/20/2025 2:41 PM EDT [facility] Blood Venous blood specimen / Unknown Venipuncture / Unknown 05/15/2025 11:14 PM EDT 05/15/2025 11:23 PM EDT us Jhoan Sanz MD LAB BLOOD ORDERABLES Final Result [facility] [address] [place] [address], * (ABNORMAL) Protein, total (05/15/2025 11:14 PM EDT) Total Protein 8.8(H) 6.0 - 8.0 g/dL LAB CHEMISTRY METHOD 05/16/2025 1:48 AM EDT [facility] Blood Venous blood specimen / Unknown Venipuncture / Unknown 05/15/2025 11:14 PM EDT 05/15/2025 11:23 PM EDT us Jhoan Sanz MD LAB BLOOD ORDERABLES Final Result [facility] [address] [place] [address], [place] [phone] * XR Humerus 2+ Views Right (05/15/2025 [...] Signed Date: 05/16/2025 09:25 ET Workstation ID: [id number] Transcribed By: Self Edit Transcribed Date: 05/16/2025 [...] Signed Date: 05/16/2025 09:25 ET Workstation ID: [id number] Transcribed By: Self Edit Transcribed Date: 05/16/2025 [...] by: Andi Ann MD on 05/15/2025 20:01:27 us Ivania Vidal MD IMG CT PROCEDURES Final Res ult * (ABNORMAL) Immunoglobulins IgG, IgA, IgM, IgE (05/15/2025 5:36 PM EDT) Total IgG 2,510(H) 549 - 1,584 mg/dL LAB CHEMISTRY METHOD 05/15/2025 9:51 PM EDT [facility] IgA 545(H) 61 - 348 mg/dL LAB CHEMISTRY METHOD 05/15/2025 9:51 PM EDT [facility] IgM 151 23 - 259 mg/dL LAB CHEMISTRY METHOD 05/15/2025 9:51 PM EDT [facility] IgE 16.2 0.0 - 158.0 I Unit/mL LAB CHEMISTRY METHOD 05/15/2025 9:51 PM EDT [facility] Blood Venous blood specimen / Unknown Venipuncture / Unknown 05/15/2025 5:36 PM EDT 05/15/2025 5:57 PM EDT us Jhoan Sanz MD LAB BLOOD ORDERABLES Final Result [facility] [address] [place] [address], * High Sensitivity CRP (05/15/2025 5:36 PM EDT) CRP, High Sensitivity >190.00 mg/L LAB CHEMISTRY METHOD 05/15/2025 7:07 PM EDT [facility] Comment: Cardio CRP Relative Risk [...] ORDERABLES Pauline l Result Performing Organization Address City/[facility]/ZIP Co de Phone Number [facility] [address] [place] [address], * (ABNORMAL) Uric acid (05/15/2025 5:36 PM EDT) Uric Acid 3.0(L) 3.1 - 7.8 mg/dL LAB CHEMISTRY METHOD 05/15/2025 9:22 PM EDT [facility] Blood Venous blood specimen / Unknown Venipuncture / Unknown 05/15/2025 5:36 PM EDT 05/15/2025 5:57 PM EDT Jhoan Sanz MD LAB BLOOD ORDERABLES Final Result Performing Organization Address [facility]/ZIP Co de Phone Number [facility] [address] [place] [address], * Thyroid Stimulating Hormone (TSH) (05/15/2025 5:36 PM EDT) TSH 0.90 0.40 - 4.00 mcIU/mL LAB CHEMISTRY METHOD 05/15/2025 8:07 PM EDT [facility] Blood Venous blood specimen / Unknown Venipuncture / Unknown 05/15/2025 5:36 PM EDT 05/15/2025 5:57 PM EDT Terell Dickey MD LAB BLOOD ORDERABLES Pauline l Result Performing Organization Address City/[facility]/ZIP Co de Phone Number [facility] [address] [place] [address], [place] [phone] * (ABNORMAL) B-Type Natriuretic Peptide (BNP) (05/15/2025 5:36 PM EDT) [facility] BNP 199(H) <=100 pcg/mL LAB CHEMISTRY METHOD 05/15/2025 6:32 PM EDT [facility] Blood Venous blood specimen / Unknown Venipuncture / Unknown 05/15/2025 5:36 PM EDT 05/15/2025 5:57 PM EDT Ivania Vidal MD LAB BLOOD ORDERABLES Final Result [facility] [address] [place] [address], [place] [phone] * (ABNORMAL) Lactate dehydrogenase (05/15/2025 5:36 PM EDT) [facility] LDH 396(H) 120 - 246 unit/L LAB CHEMISTRY METHOD 05/15/2025 9:26 PM EDT [facility] Blood Venous blood specimen / Unknown Venipuncture / Unknown 05/15/2025 5:36 PM EDT 05/15/2025 5:57 PM EDT Jhoan Sanz MD LAB BLOOD ORDERABLES Final Result [facility] [address] [place] [address], [place] [phone] * (ABNORMAL) Beta 2 microglobulin, serum (05/15/2025 5:36 PM EDT) [facility] Beta-2 Microglobulin 5.6(H) 0.7 - 1.8 mg/L LAB CHEMISTRY METHOD 05/15/2025 9:22 PM EDT [facility] Blood Venous blood specimen / Unknown Venipuncture / Unknown 05/15/2025 5:36 PM EDT 05/15/2025 5:57 PM EDT us Jhoan Sanz MD LAB BLOOD ORDERABLES Final Result [facility] [address] [place] [address], * ECG 12 lead (05/15/2025 5:24 PM EDT) Ventricular Rate ECG 107 BPM GEMUSE QRS Duration 104 ms GEMUSE Q-T Interval 324 ms GEMUSE QTc 432 ms GEMUSE R [place] 0 degrees GEMUSE T [place] -111 degrees GEMUSE ECG Interpretation Atrial fibrillation with rapid ventricular response Minimal voltage criteria for LVH, may be normal variant ( Tommy product ) Nonspecific ST and T wave abnormality Abnormal ECG When compared with ECG of 25-MAR-2021 01:26, Significant changes have occurred Confirmed by MANDI MUNGUIA ([id number]) on 05/16/2025 11:40:02 AM GEMUSE 05/15/2025 5:24 PM EDT 05/16/2025 11:40 AM EDT us Ivania Vidal MD ECG ORDERABLES Final Resul t Performing Organization Address City/[facility] Co de Phone Number TERRELL * RENZO DEXA AXIAL SKELETON (07/01/2023 8:13 AM EST) Anatomical Region Laterality Modality Mammography 06/30/2023 1:05 PM EST Narrative 07/01/2023 8:13 AM EST [facility] Diagnostic Imaging Department [address] [place] [address] Patient: NABOR VEGA./Age/Sex: 1945 - 77 - F Unit#: [id number] Location/Status: SPDIMAM/REG CLI Mnem[facility] Ordering Physician: DHAVAL JOSEPH MD Renzo Dexa Axial Skeleton - 06/30/23 [...] probability of hip fracture of 1.4%. Code [address] CT Teleradiology Dictating Physician: MYKE BOWER MD Electronically Signed by: MYKE BOWER MD Dic Date/Time: 07/01/23810 Sign date/Time: 07/01/23812 Procedure Note Myke Bower MD - 09/27/2023 [facility] Diagnostic Imaging Department [address] [place] [id number] Patient: AGAPITO BREWSTERNABOR D.O.B./Age/Sex: 1945 77 - F Unit#: [id number] Location/Status: SPDIMAM/REG CLI Mnemonic[facility] Ordering Physician: DHAVAL JOSEPH MD Renzo Dexa Axial Skeleton - 06/30/23 [...] density of the femurs bilaterally is 0.833 gm/vo3sqovh is 83% of that of young normals [...] probability of hip fracture of 1.4%. Code [address]11 CT Teleradiology Dictating Physician: MYKE BOWER MD Electronically Signed by: MYKE BOWER MD Dic Date/Time: 07/01/23810 Sign date/Time: 07/01/23812 Dhaval Joseph MD IMG BI PROCEDURES Final Res ult from Last 3 Months or Most Recently Relevant to Health Maintenance Additional Health Concerns Active Problems Noted Date Diagnosed Date Autogenerated Problem 05/31/2025 Insurance MEDICAID - [place] MEDICARE Advance Directives Documents on File Type Date Recorded Patient Social Work Therapist Expl anation Advance Directives and Living Will 05/21/2025 11:52 AM Maggie Lazoijo [facility] Care Pro xy * Full Code - Confirmed (Latest Code Status on File) Date Activated Date Inactivated Comments 05/15/2025 10:55 PM 06/05/2025 8:03 PM This code status was ascertained in the following way: Code status discussion: discussion with healthcare retention representative/daughter present at bedside To update the patient's code status, place a code status order. Do not modify or discontinue any currently active code status orders. * Full Code - Default Date Activated Date Inactivated Comments 05/15/2025 9:12 PM 05/15/2025 10:55 PM This is ord er is used when code status has not been discussed with the patient, or code status is otherwise unknown/unconfirmed To update the patient's code status, place a code status order. Do not modify or discontinue any currently active code status orders. Healthcare Agents on File Name Relationship Healthcare Agent [facility] Communication Maggie [facility] Health Care Agent Abdulaziz Ngo [facility] Car e Agent Care Teams Customer Experience Professional Relationship Specialty Start Date End Date Peyman Boss MD [address] [place] [id number] PCP - General 12/26/08
--- OUTSIDE RECORDS SUMMARY | 2025-06-06 05:40 | XMS_ITS | Clinical Summary ---
Author Organization [facility] Address [address] [place] [address] Care Team Providers Care Collections And Archives Director Name Role Phone Peyman Boss Primary Care Provider [phone] Allergies No known active allergies Medications gabapentin [...] diltiazem and metoprolol during recent hospitalization at [facility] in November, per daughter. Patient [...] and racemic epinephrine. 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
[2025-06-06 06:00] LABS: Hematocrit 28.9 % (37.0-47.0); Hemoglobin 8.8 g/dl (12.0-16.0); Imm Gran Abs Auto 0.08 X10*3/uL (0.00-0.03); Imm Gran Pct Auto 0.7 % (0.0-0.4); Lymphocytes Absolute Auto 2.2 X10*3/uL (1.2-4.9); Mean Corpuscular HGB Conc 30.4 g/dl (31.0-35.0); Mean Corpuscular Hemoglobin 28.2 pg (27.0-33.0); Mean Corpuscular Volume 92.6 fL (80.0-98.0); NRBC Abs Auto 0.000 X10*3/uL (0.0-0.012); NRBC Pct Auto 0.0 /100WBC (0.0-0.2); Platelet Count 230 X10*3/uL (160-400); Red Blood Count 3.12 X10*6/uL (4.20-5.50); White Blood Count 12.1 X10*3/uL (4.8-10.8)
[2025-06-06 06:08] LABS: Alanine Aminotransferase < 6 U/L (0-31); Albumin Level 2.8 g/dL (3.5-5.0); Alkaline Phosphatase 158 U/L (39-117); Anion Gap 15 (12-20); Aspartate Amino Transferase 56 U/L (5-31); Blood Urea Nitrogen 25 mg/dL (9-16); Calcium 7.8 mg/dL (8.4-10.2); Carbon Dioxide 22 mmol/L (22-29); Chloride 113 mmol/L (96-108); Estimated Glomerular Filt Rate 14; Potassium 3.6 mmol/L (3.3-5.1); Sodium 146 mmol/L (135-145); Total Protein 6.4 g/dL (6.5-8.0)
== END 2025-06-06 05:33 | disposition home or self-care (01) ==
LOC: HO.MMNH1L 05:32
PROVIDERS: Visit Provider Physician Assistant Medical
DX: I50.20 Unspecified systolic (congestive) heart failure (principal); Z13.1 Encounter for screening for diabetes mellitus
CPT/HCPCS: 36415; 80053; 83036; 85025